=== PATIENT | female | born 1970 | race Caucasian/White ===

== ENCOUNTER 2017-11-29 08:03 | Outpatient (CLI) | payer OTHER, BC, SELFPAY ==
--- NOTE | 2017-11-29 14:10 | W.PM.HP.N ---
Date of service: 11/29/17 Assessment and Plan (1) Arthritis of carpometacarpal (CMC) joint of right thumb: Current visit: Yes Status: Acute CMC arthritis of the right thumb. Plan: Trapezial arthroplasty right wrist. Details of surgery were discussed with patient as well as risks and pertinent anatomy. All questions were answered. History of Present Illness Chief Complaint: Right thumb and wrist pain Narrative: Susan is a [id number] female who complains of right thumb and wrist pain that has been going on for over a year now. She states that she previously was able to do all of her activities although it was painful. She has most of her pain when she is using that right hand especially with gripping and grasping. 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 She had been to the orthopedic clinic where she had x-rays done which did show CMC arthritis of the right thumb. She has been using a brace as well as injections that have been working well for her up until her most recent injection. She had 2 injections that worked very well for her and gave her lasting relief however this most recent third injection did not give her any relief at all. Since conservative treatments are starting to fail and not getting her to a point where she can do everything that she needs to do Dr. Lucas suggests a trapezial arthroplasty of the right thumb. Patient agrees with this plan and is anxious to proceed. Patient denies significant past medical history. She denies hypertension, CVA, cardiac disease, chest pain, bleeding disorders, diabetes. Review of Systems Constitutional Denies fever(s), Denies headache(s) and Denies malaise ENT Denies dizziness, Denies headache(s) and Denies sore throat Cardiovascular Denies chest pain, Denies rapid heart rate, Denies irregular heart rhythm, Denies dyspnea on exertion, Denies orthopnea and Denies slow heart rate Respiratory Denies cough, Denies excessive phlegm production, Denies dyspnea on exertion and Denies wheezing Gastrointestinal Denies abdominal pain, Denies hematochezia, Denies nausea and Denies vomiting Genitourinary Denies abnormal vaginal bleeding, Denies hematuria and Denies dysuria Neurologic Denies dizziness and Denies headache(s) Allergic/Immunologic Denies wheezing PFSH Medical History Asthma Hearing loss Social History Smoking/Tobacco Use Status: Never Surgical History History of (Resolved ~1991) Ectopic , tubal (Inactive ~1991) H/O gastric bypass (Inactive ~2014) H/O tubal ligation (Inactive ~1996) Hip dysplasia (Inactive ~1969) History of (Inactive ~1991) History of ankle fusion (Inactive ~2016) History of unilateral fallopian tube excision (Inactive ~1992) Hx laparoscopic cholecystectomy (Inactive) Meds Home Medications Medication Instructions Recorded Confirmed Type Essential Oil Ihnaler 1 ea INTRANASAL PRN PRN 11/29/17 History acetaminophen [Acetaminophen Extra 1,000 mg PO TID PRN 11/29/17 11/29/17 History Strength] albuterol sulfate 2 puff INHALATION Q4H PRN PRN 11/29/17 11/29/17 History Allergies Allergy/AdvReac Type Severity Reaction Status Date / Time latex Allergy Severe Skin Rash, Unverified 11/29/17 08:29 itchy tongue, respiratory distress promethazine HCl Allergy Severe chest Unverified 11/29/17 08:29 [From Phenergan] tightness/SOB simethicone Allergy Severe Hives Unverified 11/29/17 08:29 adhesive Allergy Intermediate Skin Rash Unverified 11/29/17 08:29 hydrocodone Allergy Intermediate Hives Unverified 11/29/17 08:29 meperidine Allergy Intermediate Hives Unverified 11/29/17 08:29 oxycodone Allergy Intermediate Hives Unverified 11/29/17 08:29 NSAIDS (Non-Steroidal AdvReac Intermediate d/t Unverified 11/29/17 08:29 Anti-Inflamma vertical sleeve gastectomy Exam Const General: cooperative and no acute distress Orientation: alert, awake and oriented x3 HENMT Head: normocephalic and atraumatic General nose exam: no nasal discharge Throat: uvula midline and other (soft palate rises symetrically, no erythema.) Eyes Conjunctivae: conjunctivae normal Sclera: sclerae normal Pupils: PERRL Resp Auscultation: clear to auscultation bilaterally Cardio Rate: regular rate Rhythm: regular rhythm Heart Sounds: S1 normal, S2 normal and no murmurs Pulses: radial pulses present on the left (regular rhythm, rate 72) GI Palpation: soft, no hepatosplenomegaly and nontender Auscultation: normal bowel sounds
== END 2017-11-29 08:23 ==
PROVIDERS: PCP Nurse Practitioner Family; Visit Provider Student in an Organized Health Care Education/Training Program
DX: Z01.818 Encounter for other preprocedural examination (principal)
CPT/HCPCS: NC

== ENCOUNTER 2017-12-04 06:18 | Day surgery (SDC) | payer OTHER, SELFPAY ==
[2017-12-04] VITALS (7 sets, daily range): BP systolic 137–156; BP diastolic 56–79; PULSE 63–66; RESP 15–20; TEMP 36.2–37.3; O2SAT 98–100
--- NOTE | 2017-12-04 07:04 | W.PM.DSUDISC ---
Discharge Plan Disposition Patient Disposition: HOME Condition: Good Discharge Details Reason For Visit: (R) THUMB CMC OA Attending Provider: Chung Lucas Primary Care Provider: Jennifer Suarez Home Meds and New Rx's Prescriptions: New hydromorphone 2 mg Tablet 1 - 2 mg PO Q6H PRN PRNQty: 8 RF: 0 Continue albuterol sulfate 90 mcg/actuation Hfa Aerosol Inhaler 2 puff INHALATION Q4H PRN PRNRF: 0 Essential Oil Ihnaler 1 ea Intranasal PRN PRNRF: 0 acetaminophen [Acetaminophen Extra Strength] 500 MG tablet 1,000 mg PO TID PRNQty: 100 RF: 0 Discharge Instructions Additional Instructions: Activity: You should keep the hand elevated as much as possible. You may use the fingers except for the thumb for light activity. You may apply ice to the outside of the splint, but do not get the splint wet. Dressings: You should keep the splint clean and dry. Medications: - You should take the Tylenol for baseline pain control - You have Hydromorphone for breakthrough pain. You should split these tablets to take 1mg as needed for breakthrough pain. Follow-up: 10 days Equipment/Supplies: Splint Activity:: Elevate Shower/Bathe:: Cover Diet:: Regular Discharge Orders Discharge Orders: Discharge Order (Routine); Ordered 12/04/17 Ordered By: Chung Lucas DS: Diagnosis Discharge Diagnosis (1) Arthritis of carpometacarpal (CMC) joint of right thumb: Status: Acute
[2017-12-04] MEDS: Lactated Ringers 1,000 ML 80 ML IV (07:15)
--- NOTE | 2017-12-04 07:17 | DI.RAD_ITS ---
SYMPTOM/DIAGNOSIS: CNC ARTHRITIS, RIGHT THUMB C-ARM FLUOROSCOPY RIGHT WRIST: Fluoroscopy Time: 5 sec Fluoroscopy was provided in the O.R. for Dr. Lucas. Please see procedure note for details.
[2017-12-04] MEDS: fentaNYL 100 MCG/2 ML VIAL IVP ×2 (09:25→09:30)
[2017-12-04] MEDS: Lactated Ringers 1,000 ML 75 ML IV (09:57)
[2017-12-04] MEDS: HYDROmorphone 2 MG TAB PO (10:30)
--- NOTE | 2017-12-04 17:24 | ROE_ITS ---
DATE OF PROCEDURE: December 04, 2017 PREOPERATIVE DIAGNOSIS: Right thumb CMC osteoarthritis. POSTOPERATIVE DIAGNOSIS: Same. SURGERY: Suture suspension arthroplasty of the right CMC joint. SURGEON: Chung Lucas M.D. SALON SALES CONSULTANT: Sneha Ann PA-C ANESTHESIA: General. ESTIMATED BLOOD LOSS: 10 cc's TOURNIQUET TIME: 48 minutes. FINDINGS: There were notable changes to the trapezium with a large medial and dorsal osteophyte. Th e trapezium was removed performing the resection arthroplasty and a suture sling was created between the FCR and APL tendons. COMPLICATIONS: None. DISPOSITION: The patient was awakened from anesthesia and taken to the PACU in a stable condition. INDICATION FOR PROCEDURE: Marisela is a 47-year-old who has had persistent right thumb pain. She's had i njections and tried bracing. She cannot use anti-inflammatories. She has exhausted nonoperative mat atment options but continues to have limitations with pain and dysfunction. I recommended a resectio n arthroplasty with suture suspensionplasty of the right CMC joint. I reviewed the risks of the proc edure to include bleeding, infection, pain, stiffness, damage to nerves and vessels, damage to muscle s and tendons. Despite these risks, she elected to proceed. PROCEDURE DESCRIPTION: Marisela was greeted in the preoperative holding area. Her identity was confirmed and the correct side was identified and marked. The consent was reviewed with the patient and ladonna d. The history and physical was updated. She was taken back to the operating room and placed in the supine position with all bony prominences well padded. The right arm was placed on the hand table. A non-sterile tourniquet was placed high up on the right arm. Prophylactic antibiotics in the form of Cefazolin were administered. A time-out was performed for safe surgery. The surgical site was anesthetized with 0.5% Bupivacaine with epinephrine. The limb was exsanguinate d and the tourniquet was inflated, where it stayed for forty-eight minutes. A radial-based incision was made overlying the APL tendon. The skin was incised sharply. Branches of the superficial radial nerve were protected. The sheath of the first extensor compartment was opened and the interval betw een the APL and EPB tendon was and used as the working interval. The deep branch of the ra dial artery was identified and released from its surrounding tissue and protected during the case. F luoroscopy was used to confirm the correct positioning of the trapezium. The capsule of the scaphotr apezial and the carpometacarpal joint was then opened up and the subperiosteal dissection of the trap ezium was performed. This was taken around the entirety of the trapezium. It was intended to be rem benny in whole but still was unable to. Therefore an osteotome was used to split it into four parts. With a rongeur the remainder of the trapezium was removed. The FCR was protected. After the trapez ium was removed in whole a #2-0 FiberWire was used to perform the suture sling suspensionplasty. The suture was taken through the APL tendon at the insertion of the first metacarpal through the FCR ten don at its insertion to the index metacarpal and it went back and forth twice. This created a sling for the first metacarpal to rest on. This was then tied over the APL after confirming appropriate po sitioning with the x-ray. This adequately supported the thumb metacarpal from sagging. The wound wa s then thoroughly irrigated. The capsule of the CMC joint was closed as best as possible with a 0 Vi cryl. The tourniquet was deflated and there was no significant bleeding. The deep tissues were chanel pproximated with a #3-0 Vicryl. The skin was closed with a #4-0 Monocryl. The remainder of the anes thetic 0.5% Bupivacaine was injected around the surgical site. The patient was placed in a thumb spi ca splint. At the end of the case all counts were correct.
== END 2017-12-04 11:26 | disposition home or self-care (01) ==
PROVIDERS: PCP Nurse Practitioner Family; Visit Provider Student in an Organized Health Care Education/Training Program
PROC: (CPT 25447; principal; 2017-12-04 07:30)
DX: M18.11 Unilateral primary osteoarthritis of first carpometacarpal joint, right hand (principal); M25.541 Pain in joints of right hand
CPT/HCPCS: 25447; 73110; J0131; J0690; J1100; J1885; J2250; J2405; J3010

== ENCOUNTER 2017-12-14 08:30 | Outpatient (CLI) | payer OTHER, BC, SELFPAY ==
--- NOTE | 2017-12-14 10:58 | DI.RAD_ITS ---
SYMPTOMS/DIAGNOSIS: S/P TRAPEZIAL RESECTION RT THUMB ARTHROPLASTY RIGHT THUMB: Three views. Comparison 12/04/17. There has been resection of the trapezium. The patient's wrist is in a cast which does obscure the underlying bony detail. No acute fracture or dislocation is appreciated.
== END 2017-12-14 08:50 ==
PROVIDERS: PCP Nurse Practitioner Family; Visit Provider Student in an Organized Health Care Education/Training Program
DX: M18.11 Unilateral primary osteoarthritis of first carpometacarpal joint, right hand (principal); Z98.890 Other specified postprocedural states
CPT/HCPCS: 73140

== ENCOUNTER 2018-04-22 10:43 | Outpatient (CLI) | payer OTHER, SELFPAY ==
--- NOTE | 2018-04-22 10:36 | DI.RAD_ITS ---
SYMPTOM/DIAGNOSIS: WORSENING LT ANKLE PAIN, S/P SUBTALAR FUSION LEFT ANKLE: Comparison is made with 10 October 2017. Two partially threaded screws are again noted through the talocalcaneal joint for joint fusion. Heel spurs are again noted. There is spurring from the malleoli as well as degenerative changes at the talonavicular joint. IMPRESSION: Stable post surgical and degenerative changes.
== END 2018-04-22 11:03 ==
PROVIDERS: PCP Nurse Practitioner Family; Visit Provider Student in an Organized Health Care Education/Training Program
DX: M25.572 Pain in left ankle and joints of left foot (principal); M77.32 Calcaneal spur, left foot; M19.072 Primary osteoarthritis, left ankle and foot
CPT/HCPCS: 73610

== ENCOUNTER 2018-09-09 21:33 | Emergency (ER) | payer OTHER, SELFPAY ==
[2018-09-09 21:46] VITALS: BP 153/75; PULSE 70; RESP 18; TEMP 36.9; O2SAT 97
--- NOTE | 2018-09-09 21:52 | ED.GENADUL_ITS ---
Discharge Plan Disposition Patient Disposition: HOME Condition: Stable Discharge Details Chief Complaint: EarProblem Clinical Impression: Foreign body of left ear Primary Care Provider: Jennifer Suarez ED Provider: Freddie Brenner Home Meds and New Rx's Prescriptions: No Action [place] Custom Ankle Brace Qty: 1 RF: 0 gabapentin 300 mg capsule 300 mg PO HS Qty: 30 RF: 2 albuterol sulfate 90 mcg/actuation Hfa Aerosol Inhaler 2 puff INHALATION Q4H PRN PRNRF: 0 Essential Oil Ihnaler 1 ea Intranasal PRN PRNRF: 0 hydromorphone 2 mg Tablet 1 - 2 mg PO Q6H PRN PRNQty: 8 RF: 0 acetaminophen [Acetaminophen Extra Strength] 500 MG tablet 1,000 mg PO TID PRNQty: 100 RF: 0 Discharge Instructions Additional Instructions: if you have severe pain or discharge from the ear return to the emergency department or see your primary care provider Medical Decision Making 48 yo female comes in stating a piece of her hearing aid is stuck in her left ear. She had a visible rubber ear piece in the left ear canal that I removed without incident and has normal tm and ext auditory canal and return precautions given Differential Diagnosis foreign body HPI General Mode of arrival: ambulatory . Date/Time Provider Initiated Documentation: 09/09/18 21:39 . Limitations to Documentation: no limitations . Information obtained by: patient . History of Present Illness 48 year old F presents to the emergency department with the chief complaint of left ear foreign body, and is localized to the head (left ear) and left. Patient started experiencing this hour(s) (2) and it has been constant. No relieving factors improve symptom(s), No exacerbating factors reported . Patient notes no other symptoms.. Related Data Home Medications Medication Instructions Recorded Confirmed Essential Oil Ihnaler 1 ea INTRANASAL PRN PRN 11/29/17 04/22/18 albuterol sulfate 2 puff INHALATION Q4H PRN PRN 11/29/17 04/22/18 acetaminophen [Acetaminophen Extra 1,000 mg PO TID PRN #100 tab 12/04/17 04/22/18 Strength] hydromorphone 1 - 2 mg PO Q6H PRN PRN #8 tab 12/04/17 04/22/18 gabapentin 300 mg capsule 300 mg PO HS #30 cap 03/29/18 04/22/18 [place] Custom Ankle Brace #1 ea 04/22/18 04/22/18 Previous Rx's Medication Instructions Recorded acetaminophen [Acetaminophen Extra 1,000 mg PO TID PRN #100 tab 12/04/17 Strength] hydromorphone 1 - 2 mg PO Q6H PRN PRN #8 tab 12/04/17 gabapentin 300 mg capsule 300 mg PO HS #30 cap 03/29/18 [place] Custom Ankle Brace #1 ea 04/22/18 Allergies Allergy/AdvReac Type Severity Reaction Status Date / Time latex Allergy Severe Skin Rash, Unverified 04/22/18 10:46 itchy tongue, respiratory distress promethazine HCl Allergy Severe chest Unverified 04/22/18 10:46 [From Phenergan] tightness/SOB simethicone Allergy Severe Hives Unverified 04/22/18 10:46 adhesive Allergy Intermediate Skin Rash Unverified 04/22/18 10:46 hydrocodone Allergy Intermediate Hives Unverified 04/22/18 10:46 meperidine Allergy Intermediate Hives Unverified 04/22/18 10:46 oxycodone Allergy Intermediate Hives Unverified 04/22/18 10:46 NSAIDS (Non-Steroidal AdvReac Intermediate d/t Unverified 04/22/18 10:46 Anti-Inflamma vertical sleeve gastectomy Review of Systems Review of Systems All systems reviewed & are unremarkable except as noted in HPI and below Constitutional Denies chills, Denies fever(s) and Denies weakness Cardiovascular Denies chest pain and Denies dyspnea Respiratory Denies cough and Denies dyspnea Gastrointestinal Denies abdominal pain, Denies nausea and Denies vomiting Musculoskeletal Denies joint swelling Neurologic Denies weakness PFSH Medical History Asthma Hearing loss Surgical History History of (Resolved ~1991) Ectopic , tubal (Inactive ~1991) H/O gastric bypass (Inactive ~2014) H/O tubal ligation (Inactive ~1996) Hip dysplasia (Inactive ~1969) History of (Inactive ~1991) History of ankle fusion (Inactive ~2016) History of unilateral fallopian tube excision (Inactive ~1992) Hx laparoscopic cholecystectomy (Inactive) Social History Smoking/Tobacco Use Status: Never Drug use: Never Do you feel safe in your relationship?: Yes Exam Const General: no acute distress Orientation: alert HENMT Head: normal to inspection Ears: external ears normal General nose exam: external nose normal Mouth: moist mucous membranes Eyes General: appearance normal, both eyes and all related structures Neck Neck: normal visual inspection Resp Effort & Inspection: normal respiratory effort and able to speak in complete sentences Cardio Rate: regular rate Skin General skin exam: no rashes or lesions noted Neuro General: alert and oriented x3 Extrem General: normal to inspection Psych Mental Status: mental status grossly normal
[2018-09-09 21:53] VITALS: BP 153/75; PULSE 70; RESP 18; O2SAT 97
== END 2018-09-09 22:02 | disposition home or self-care (01) ==
LOC: ER 22:06
PROVIDERS: Emergency Provider Emergency Medicine; PCP Nurse Practitioner Family
DX: T16.2XXA Foreign body in left ear, initial encounter (principal)
CPT/HCPCS: 99281

== ENCOUNTER 2019-12-25 17:53 | Emergency (ER) | payer OTHER, SELFPAY ==
[2019-12-25 17:58] VITALS: BP 182/88; PULSE 71; TEMP 36.6; O2SAT 99
--- NOTE | 2019-12-25 18:33 | W.ED.GENAD ---
Discharge Plan Disposition Patient Disposition: HOME Condition: Stable Discharge Details Clinical Impression: Foot sprain Primary Care Provider: Jennifer Suarez ED Provider: Brenadn Barron Home Meds and New Rx's Prescriptions: Continued (DME) [place] Custom Ankle Brace Qty: 1 RF: 0 albuterol sulfate 90 mcg/actuation Hfa Aerosol Inhaler 2 puff INHALATION Q4H PRN PRNRF: 0 Essential Oil Ihnaler 1 ea Intranasal PRN PRNRF: 0 acetaminophen [Acetaminophen Extra Strength] 500 MG tablet 1,000 mg PO TID PRNQty: 100 RF: 0 gabapentin 300 mg capsule 300 mg PO HS PRNRF: 0 Discharge Instructions Instructions: Foot Sprain (ED) Additional Instructions: X-ray foot and ankle are unremarkable. This is likely a sprain. Rest, elevate, cool compresses every 2 hours for 20 minutes. Arhv-[id number]-vxvgyed medication such as Tylenol and/or Motrin as directed for discomfort. Advance activity as tolerated. Please watch for new or worsening symptoms and return to the ER for any concerns. Otherwise contact your primary care provider in the next week for prompt outpatient reevaluation. Medical Decision Making 49-year-old female presents with right foot-ankle injury that occurred this morning miss stepping off her bottom step. Twisted but did not fall to the ground. Was able to work although pain got worse throughout the day. Denies any other injury. Denies numbness, tingling, weakness. Clinically this appears to be soft tissue in nature but will obtain x-ray to rule any bony involvement. X-ray of foot and ankle read by virtual radiology as negative. Discussed x-ray findings with patient. Discussed treatment options. She reports that she has baseline balance issues and that she is relieved that there is no broken bone. She declines splinting or crutches. I do believe this to be reasonable. Medical Records Medical records reviewed: Yes I reviewed the patient's medical records. HPI General Mode of arrival: ambulatory. Date/Time Provider Initiated Documentation: 12/25/19 18:31. Limitations to Documentation: no limitations. Information obtained by: patient. HPI Narrative: This is a 49-year-old female with history of sensorineural hearing loss, asthma, presenting status post injury to her right foot and ankle that occurred this morning. Patient reports that she was wearing her regular sneakers, twisted her foot/ankle coming down the bottom stair. She was able to catch herself and did not fall to the ground. No additional injuries. She reports that she was able to bear weight throughout the day and work but as the day went on the pain got worse. As above she denies any other injuries. Denies numbness, tingling, weakness. Pain is moderate at rest worse with weightbearing. Related Data Home Medications Medication Instructions Recorded Confirmed Essential Oil Ihnaler 1 ea INTRANASAL PRN PRN 11/29/17 04/22/18 albuterol sulfate 2 puff INHALATION Q4H PRN PRN 11/29/17 12/25/19 acetaminophen [Acetaminophen Extra 1,000 mg PO TID PRN #100 tab 12/04/17 12/25/19 Strength] [place] Custom Ankle Brace #1 ea 04/22/18 04/22/18 gabapentin 300 mg PO HS PRN 12/25/19 12/25/19 Previous Rx's Medication Instructions Recorded acetaminophen [Acetaminophen Extra 1,000 mg PO TID PRN #100 tab 12/04/17 Strength] [place] Custom Ankle Brace #1 ea 04/22/18 Allergies Allergy/AdvReac Type Severity Reaction Status Date / Time latex Allergy Severe Skin Rash, Unverified 12/25/19 18:03 itchy tongue, respiratory distress promethazine HCl Allergy Severe chest Unverified 12/25/19 18:03 [From Phenergan] tightness/SOB simethicone Allergy Severe Hives Unverified 12/25/19 18:03 adhesive Allergy Intermediate Skin Rash Unverified 12/25/19 18:03 hydrocodone Allergy Intermediate Hives Unverified 12/25/19 18:03 meperidine Allergy Intermediate Hives Unverified 12/25/19 18:03 oxycodone Allergy Intermediate Hives Unverified 12/25/19 18:03 NSAIDS (Non-Steroidal AdvReac Intermediate d/t Unverified 12/25/19 18:03 Anti-Inflamma vertical sleeve gastectomy General Stated Complaint: Orthopedic OLU: 4 Review of Systems Constitutional Constitutional: Denies weakness Cardiovascular Cardiovascular: Denies chest pain and Denies dyspnea Respiratory Respiratory: Denies dyspnea Gastrointestinal Gastrointestinal: Denies nausea and Denies vomiting Musculoskeletal Musculoskeletal: Reports arthralgias, Denies numbness, Denies stiffness and Denies tingling Integumentary/Breasts Skin/Breast: Denies rash Neurologic Neurologic: Denies numbness, Denies tingling and Denies weakness [facility] Medical History Asthma rarely has to use inhailer Hearing loss Surgical History Ectopic , tubal (~1991) with surgical repair of tube H/O gastric bypass (~2014) severe n/v H/O tubal ligation (~1996) Hip dysplasia (~1969) with surgical intervention History of ankle fusion (~2016) History of (~1991) History of (~1991) History of unilateral fallopian tube excision (~1992) due to ectopic Hx laparoscopic cholecystectomy Social History Smoking/Tobacco Use Status: Never Alcohol Intake: current Alcohol Intake frequency: holidays/special occasions only Drug use: Never Do you feel safe at home: Yes Do you feel safe in your relationship?: Yes Exam Const General: cooperative, healthy appearing, comfortable and no acute distress Orientation: alert and awake HENMT Head: normal to inspection, normocephalic and atraumatic Mouth: moist mucous membranes Eyes Conjunctivae: conjunctivae normal Neck Neck: normal visual inspection, trachea midline and supple Resp Effort & Inspection: normal respiratory effort and able to speak in complete sentences Cardio Rate: regular rate Rhythm: regular rhythm Skin General skin exam: no rashes or lesions noted Neuro General: patient alert, patient awake, moves all extremities and no focal motor deficits Gait: antalgic Motor: muscle tone normal throughout Sensory Exam: no sensory deficits noted Extrem Right lower extremity: full ROM and normal capillary refill Ankle/foot/toe images: 1. Discomfort to palpation, diffusely. No deformity. Neuro, vascular, tendon intact. Without swelling or ecchymosis. Normal capillary refill Psych Appearance: grossly normal Mental Status: mental status grossly normal Course Vital Signs Vital signs: Vital Signs Temperature 36.6 C 12/25/19 17:58 Pulse 71 12/25/19 17:58 Blood Pressure 182/88 H 12/25/19 17:58 Pulse Oximetry 99 12/25/19 17:58 Temperature 36.6 C 12/25/19 17:58 Temperature Source Temporal Artery Scan 12/25/19 17:58 Pulse 71 12/25/19 17:58 Respiratory Effort Non-Labored 12/25/19 18:00 Blood Pressure 182/88 H 12/25/19 17:58 Blood Pressure Position Sitting 12/25/19 17:58 Pulse Oximetry 99 12/25/19 17:58 Oxygen Delivery Method Room Air 12/25/19 17:58 Oxygen Flow Rate 0 12/25/19 17:58 Pain Level 4 12/25/19 18:19
--- NOTE | 2019-12-25 18:50 | DI.RAD_ITS ---
EXAM: XR FOOT RT COMPLETE CLINICAL HISTORY: fall/twist. TECHNIQUE: 2D digital imaging was performed. COMPARISON: CR LEFT FOOT COMPLETE from 06/30/2016 FINDINGS: BONES: No acute fracture is present. No bony destructive lesion is seen.heel spur. JOINTS: No dislocation present. SOFT TISSUE: Normal. IMPRESSION: No acute abnormality. DATA REPOSITORY: RADIATION DOSE DELIVERED:
--- NOTE | 2019-12-25 18:52 | DI.RAD_ITS ---
EXAM: XR ANKLE RT COMPLETE CLINICAL HISTORY: fall/twist TECHNIQUE: 2D digital imaging was performed. COMPARISON: CR XR ANKLE LT COMPLETE from 04/22/2018 FINDINGS: There are prominent heel spurs. No fracture or ankle mortise widening is seen. No talar dome defect is identified. Soft tissue edema. IMPRESSION: No acute abnormality.
--- NOTE | 2019-12-25 19:18 | DI.VRAD_ITS ---
PROCEDURE INFORMATION: Exam: XR Right Foot Complete Exam date and time: 12/25/2019 18:57 Age: 49 years old Clinical indication: Injury or trauma; Swelling (edema); Foot; Right; Injury date: 12/25/19; Injury details: Fall, twist, inversion TECHNIQUE: Imaging protocol: XR Right foot. Views: 3 or more views. COMPARISON: No relevant prior studies available. FINDINGS: Bones/joints: Plantar calcaneal spur. Posterior calcaneal spur. No acute fracture or subluxation. Soft tissues: Normal. IMPRESSION: No acute bony pathology. Dictated and Authenticated by: Dejah Dash MD. Ordering:DANIELE Cardona MD
--- NOTE | 2019-12-25 19:18 | DI.VRAD_ITS ---
PROCEDURE INFORMATION: Exam: XR Right Ankle Exam date and time: 12/25/2019 18:57 Age: 49 years old Clinical indication: Injury or trauma; Swelling (edema); Ankle; Right; Injury date: 12/25/19; Injury details: Fall, twist, inversion TECHNIQUE: Imaging protocol: XR Right ankle. Views: 3 or more views. COMPARISON: No relevant prior studies available. FINDINGS: Bones/joints: Plantar calcaneal spur. Posterior calcaneal spur. No acute fracture or subluxation. Soft tissues: Generalized soft tissue swelling. IMPRESSION: No acute bony pathology. Dictated and Authenticated by: Dejah Dash MD. Ordering:DANIELE Cardona MD
[2019-12-25 19:20] VITALS: BP 155/82
== END 2019-12-25 19:41 | disposition home or self-care (01) ==
LOC: ER 19:53
PROVIDERS: Emergency Provider Physician Assistant; PCP Nurse Practitioner Family
DX: S93.601A Unspecified sprain of right foot, initial encounter (principal); X50.9XXA Other and unspecified overexertion or strenuous movements or postures, initial encounter
CPT/HCPCS: 99284; 73610; 73630; 99283

== ENCOUNTER 2020-06-09 11:38 | Outpatient (REF) | payer OTHER, SELFPAY ==
[2020-06-09 19:47] LABS: HCT 36.6 % (36.0-46.0); HGB 11.1 g/dL (11.2-15.7); MCH 23.4 pg (27.0-33.0); MCHC 30.3 % (32.0-36.0); MCV 77.2 fL (80-95); Platelet Count 326 10^3/uL (130-400); RBC 4.74 10^6/uL (3.93-5.22); RDW 15.9 % (11.7-14.6); RDW-SD 45.1 fL; WBC 4.59 10^3/uL (4.4-10.8)
[2020-06-09 20:08] LABS: ALT 23 U/L (14-59); AST 13 U/L (15-37); Albumin 3.8 g/dL (3.4-5.0); Alkaline Phosphatase 101 U/L (46-116); Anion Gap 6.4 mmol/L (3-11); BUN 12 mg/dL (7-18); Bilirubin, Total 0.9 mg/dL (0.2-1.0); CO2 30.6 mmol/L (21.0-32.0); CREATININE 0.6 mg/dL (0.55-1.02); Calcium 8.8 mg/dL (8.5-10.1); Calculated LDL 107 mg/dL (<100); Chloride 104 mmol/L (98-107); Cholesterol 184 mg/dL (<200); Glucose 84 mg/dL (74-106); HDL Cholesterol 69 mg/dL (40-60); Sodium 141 mmol/L (136-145); TSH (W/Ref FT4) 0.81 uIU/mL (0.36-3.74); Total Protein 7.2 g/dL (6.4-8.2); Triglyceride 41 mg/dL (<150)
== END 2020-06-09 11:39 | disposition home or self-care (01) ==
LOC: NCHCN 11:38
PROVIDERS: PCP Nurse Practitioner Family; Visit Provider Nurse Practitioner Family
DX: Z00.00 Encounter for general adult medical examination without abnormal findings (principal); R53.83 Other fatigue; Z13.220 Encounter for screening for lipoid disorders
CPT/HCPCS: 80053; 80061; 85027; 84443

== ENCOUNTER 2020-06-09 16:38 | Outpatient (RCR) | payer OTHER, SELFPAY ==
--- NOTE | 2020-06-09 17:15 | HOLTER_ITS ---
APPROVED REPORT Exam Type: HOLTER MONITOR APPLICATION Reason for Test: PALPITATIONS Patient Location: O Conclusion This is a 48-hour Holter monitor ordered for indication of palpitations. The patient was in normal sinus rhythm for the majority of the recording with an average heart rate o f 72 bpm. There were rare PACs and rare PVCs. There were 10 episodes of supraventricular tachycardia with the longest lasting 21 beats. The fastes t episode was 189 bpm. There were no episodes of ventricular tachycardia. There were no episodes of atrial fibrillation, no pauses greater than 3 seconds and no evidence of hi gh degree heart block. The patient had multiple diary events associated with SVT as well as PACs/PVCs.
== END 2020-06-23 23:59 | disposition home or self-care (01) ==
LOC: RT 16:38
PROVIDERS: PCP Nurse Practitioner Family; Visit Provider Nurse Practitioner Family
DX: R00.2 Palpitations (principal)
CPT/HCPCS: 93225; 93226

== ENCOUNTER 2020-06-24 01:34 | Outpatient (CLI) | payer OTHER, SELFPAY ==
--- NOTE | 2020-06-24 12:36 | DI.MAMMO_ITS ---
EXAM: MG MAMMO SCREENING CLINICAL HISTORY: SCREENING, Z12.39. TECHNIQUE: Bilateral full field digital CC and MLO mammographic images were obtained with 3D tomosyn thesis and utilizing computer aided detection (CAD). COMPARISON: None available at this time. Over 10 years ago at outside institution are being sent fo r. An addendum will follow if received the previous for comparison. FINDINGS: Small benign-appearing nodule posterolaterally in the left breast is probably benign lymph node. No obvious spiculated masses nor malignant-appearing microcalcification groups in either breast. There is no significant architectural distortion nor skin thickening-retraction. IMPRESSION: Benign findings. No radiographic evidence of malignancy. BI-RADS Category 2 - Benign Findings Breast Density - Category B - Scattered areas of fibroglandular density Breast density Category C or D implies that the patient has dense breast tissue. Dense breast tissue can make it harder to find cancer on a mammogram. Dense breast tissue is also associated with an incr eased risk of breast cancer. This information about the result of the mammogram report was provided to the patient to raise their awareness. Use this report when you speak with the patient about their risks for breast cancer, which includes their family history. At that time, you may recommend additional screening tests (Ultrasoun d or MRI) as these tests may add significant information. A negative radiographic report should not delay biopsy if a dominant or clinically suspicious mass is present. Up to ten percent of cancers are not identified on mammography. A negative report may reinforce clinical impression. Adenosis and dense breasts may obscure an underlying neoplasm. False positive reports average 6 to 10%. Patient will receive a letter notifying them of these results.
== END 2020-06-24 01:54 ==
PROVIDERS: PCP Nurse Practitioner Family; Visit Provider Nurse Practitioner Family
DX: Z12.31 Encounter for screening mammogram for malignant neoplasm of breast (principal)
CPT/HCPCS: 77063; 77067

== ENCOUNTER 2020-07-02 11:31 | Outpatient (CLI) | payer OTHER, SELFPAY ==
--- NOTE | 2020-07-02 11:15 | DI.RAD_ITS ---
EXAM: XR FOOT LT COMPLETE CLINICAL HISTORY: foot pain. TECHNIQUE: 2D digital imaging was performed. COMPARISON: CR XR ANKLE LT COMPLETE from 04/22/2018 CR,XR XR FOOT RT COMPLETE from 12/25/2019 FINDINGS: Stable findings of a talocalcaneal fusion are noted. Spurring is seen at the talonavicular joint and articulation of the navicular and the cuneiform. The joint spaces are otherwise well maintained. T he bones are intact and normally mineralized. There is plantar calcaneal spur and enthesophyte at th e Achilles insertion site. The soft tissues are unremarkable. IMPRESSION: Stable left foot. DATA REPOSITORY: RADIATION DOSE DELIVERED:
== END 2020-07-02 11:32 | disposition home or self-care (01) ==
LOC: DIORS 11:32
PROVIDERS: PCP Nurse Practitioner Family; Referring Provider Nurse Practitioner Family; Visit Provider Physician Assistant Surgical
DX: M79.672 Pain in left foot (principal)
CPT/HCPCS: 73630

== ENCOUNTER 2020-11-17 02:40 | Outpatient (CLI) | payer OTHER, SELFPAY ==
[2020-11-17 12:37] LABS: Source Nasal/Nares
[2020-11-17 15:08] LABS: COVID-19 PCR Negative (Negative)
== END 2020-11-17 02:41 | disposition home or self-care (01) ==
LOC: LBN 02:40
PROVIDERS: Family Medicine; PCP Nurse Practitioner Family; Visit Provider Surgery
DX: Z20.822 Contact with and (suspected) exposure to COVID-19 (principal); Z01.818 Encounter for other preprocedural examination
CPT/HCPCS: 87635

== ENCOUNTER 2020-11-19 06:17 | Day surgery (SDC) | payer OTHER, SELFPAY ==
--- NOTE | 2020-11-18 15:21 | W.COLOREPORT ---
Date of service: 11/19/20 Time of Service: 08:00 Colonoscopy Report Date of procedure: 11/19/20 Pre-op diagnosis general: hx if IBD- mixed/CRC screen Post-op diagnosis procedure note: same Surgeon: Sneha Lizarraga Anesthesia Type: General LMA/ETT Pathology: other Complications: None Disposition: same day Prep: Miralax/Dulcolax Retraction Time: 9 Procedure Description: After informed consent was obtained the patient was taken to the procedure room and placed in a left decubitous position. Monitors were applied and a time out was done. The patients name, date of , procedure, allergies to medications and metal in their body was reviewed. The patient was then sedated. Once sedated and comfortable a rectal exam was done. External exam was normal. Internal exam revealed a normal sphincter tone and no palpable masses. The scope was then introduced and retrofelexed. no internal hemorrhoids were identified. The scope was then advanced to the cecum w/out difficulty. The TI and appendiceal orifice were identified. The prep was good. The scope was then slowly retracted over 9 minutes back into the rectum. THere are no polyps/AVM's/diverticula. The colon is very torteous. Bx were taken in cecum/ 50cm/rectum. The scope was removed and the patient was woken up and taken back to Same day surgery in stable condition. The patient tolerated the procedure well and there were no immediate complications. Follow up: The patient should follow up in 10 years unless they develop changes in bowel habits or other new gastrointestinal complaints.
--- NOTE | 2020-11-18 15:23 | PDOC.DSDIS_ITS ---
Discharge Plan Disposition Patient Disposition: HOME Condition: Good Discharge Details Reason For Visit: colon scope Attending Provider: Sneha Lizarraga Primary Care Provider: Jennifer Suarez Home Meds and New Rx's Prescriptions: No Action (DME) [place] Custom Ankle Brace Qty: 1 RF: 0 ibuprofen 800 mg tablet 800 mg PO BID RF: 0 bisacodyl [Dulcolax (bisacodyl)] 5 mg tablet,delayed release (DR/EC) 5 mg PO ONCE Qty: 4 RF: 0 polyethylene glycol 3350 17 gram/dose powder 238 g PO ONCE Qty: 238 RF: 0 aspirin [Adult Aspirin Regimen] 81 mg tablet,delayed release (DR/EC) 81 mg PO DAILY RF: 0 albuterol sulfate 90 mcg/actuation Hfa Aerosol Inhaler 2 puff INHALATION Q4H PRN PRNRF: 0 Essential Oil Ihnaler 1 ea Intranasal PRN PRNRF: 0 acetaminophen [Acetaminophen Extra Strength] 500 MG tablet 1,000 mg PO TID PRNQty: 100 RF: 0 gabapentin 300 mg capsule 300 mg PO HS PRNRF: 0 Discharge Instructions Additional Instructions: DSU Colonoscopy Post- Op Instructions Instructions for Everyone who is given Anesthesia: For your safety, please do the following for the next twenty-four (24) hours: *Do Not operate a motor vehicle (car, truck, motorcycle, etc.) *Do Not drink alcoholic beverages or use any recreational drugs for the first 24 hours or while taking pain medications. The medications in your body may have a reaction that can be dangerous. *Do Not make any important decisions or sign any important papers. Findings:normal Follow up:repeat scope in 10 yrs time 1. No lifting over 20 pounds or strenuous activity for the first 24 hours after your procedure. After 24 hours there are no restrictions on your activity but you may feel fatigued for a few days. 2. After you arrive home you may have a light meal and return to your normal t as you can tolerate it without feeling sick to your stomach. 3. You may have a bloated, gaseous feeling in your belly (abdomen) after a colonoscopy. Passing gas and belching will help. Walking or lying down on your left side with your knees flexed may relieve the discomfort. Call the office at [phone] (Office) or [phone] (Hospital) right away if you notice any of the following: a.Vomiting of blood or ?coffee ground stools?. b.Rectal bleeding 1Tbsp, blood clots or continuous bleeding. c.Severe belly (abdominal) pain. d.A hard distended belly (abdomen) and an inability to pass gas. 4. Please don?t expect to have a normal BM (bowel movement) for 2-3 days after your procedure. 5. If there are questions regarding the findings of your procedure, please contact your doctor 6. If you are unable to contact your doctor with a problem, contact the hospital at [phone]. 7. Continue all your regular medications unless directed otherwise. I understand the above instructions and have no questions. Signature of Patient or Adult Escort Name of Responsible Adult Escort Signature of Nurse Date/Time Activity:: see above Diet:: see above Discharge Orders Discharge Orders: Discharge Order (Routine); Ordered 11/18/20 Ordered By: Sneha Lizarraga DS: Diagnosis Discharge Diagnosis (1) IBS (irritable bowel syndrome): Status: Chronic
[2020-11-19 06:24] VITALS: BP 150/87; PULSE 70; RESP 16; TEMP 36.6; O2SAT 98
[2020-11-19] MEDS: Lactated Ringers 1,000 ML 80 ML IV (06:56)
--- NOTE | 2020-11-19 07:08 | W.ANESPRE ---
General Info Date of Service Date Performed: 11/19/20 Height: 5 ft 5 in Weight: 107 kg Body Mass Index (BMI): 39.2 Surgical Procedure: Operation Date: 11/19/20 07:35 Proposed Procedures Side Surgeon kalie Lizarraga, Meds Allergies and Home Medications Allergies Allergy/AdvReac Type Severity Reaction Status Date / Time latex Allergy Severe Skin Rash, Unverified 11/19/20 06:34 itchy tongue, respiratory distress promethazine HCl Allergy Severe chest Unverified 11/19/20 06:34 [From Phenergan] tightness/SOB simethicone Allergy Severe Hives Unverified 11/19/20 06:34 adhesive Allergy Intermediate Skin Rash Unverified 11/19/20 06:34 hydrocodone Allergy Intermediate Hives Unverified 11/19/20 06:34 meperidine Allergy Intermediate Hives Unverified 11/19/20 06:34 oxycodone Allergy Intermediate Hives Unverified 11/19/20 06:34 NSAIDS (Non-Steroidal AdvReac Intermediate d/t Unverified 11/19/20 06:34 Anti-Inflamma vertical sleeve gastectomy Home Medication Medication Instructions Recorded Essential Oil Ihnaler 1 ea INTRANASAL PRN PRN 11/29/17 albuterol sulfate 2 puff INHALATION Q4H PRN PRN 11/29/17 acetaminophen [Acetaminophen Extra 1,000 mg PO TID PRN #100 tab 12/04/17 Strength] [place] Custom Ankle Brace #1 ea 04/22/18 gabapentin 300 mg PO HS PRN 12/25/19 aspirin 81 mg tablet,delayed 81 mg PO DAILY 06/29/20 release bisacodyl 5 mg tablet,delayed 5 mg PO ONCE #4 tab 10/21/20 release ibuprofen 800 mg tablet 800 mg PO BID tab 10/21/20 polyethylene glycol 3350 17 238 g PO ONCE #238 g 10/21/20 gram/dose oral powder Current Visit Medications: Current Medications Generic Name Dose Route Start Last Admin Trade Name Freq PRN Reason Stop Dose Admin Hyoscyamine Sulfate 0.125 mg 11/18/20 15:20 Hyoscyamine 0.125 Mg Sl/Oral/Chew SL DIRECTED PRN Ringer's Solution 1,000 mls @ 80 mls/hr 11/19/20 06:00 11/19/20 06:56 IV 12/18/20 23:59 80 mls/hr INFUSION BLAIR Administration IV Miscellaneous Supplies 1 each 11/19/20 06:00 Iv Access IV 12/18/20 23:59 DIRECTED BLAIR Ondansetron HCl 4 mg 11/18/20 15:20 Ondansetron 4 Mg/2 Ml Vial IVP Q4H PRN PRN Nausea / Vomiting Sodium Chloride 0 ml 11/19/20 06:00 Normal Saline Flush 10 Ml Syr IV 12/18/20 23:59 PRN PRN PFSH Active Problems Active Problems: Problem Status Onset Code Arthritis of foot, left 11/01/15 M19.072 Primary osteoarthritis of first carpometacarpal joint of right hand 01/29/17 M18.11 Sensorineural hearing loss, bilateral 04/24/17 H90.3 Arthritis of carpometacarpal (CMC) joint of right thumb M18.11 History of hand surgery Z98.890 Sensorineural hearing loss (SNHL) of right ear with restricted hearing of left ear H90.A21 Screening for colon cancer Z12.11 Fatigue R53.83 Palpitations R00.2 Family history of breast cancer Z80.3 IBS (irritable bowel syndrome) K58.9 Medical History Medical History (Updated 11/19/20 @ 07:00 by Silvia Reza) Asthma rarely has to use inhailer Complex regional pain syndrome i of right upper limb Hearing loss Surgical History Surgical History Ectopic , tubal (~1991) with surgical repair of tube H/O gastric bypass (~2014) severe n/v Vertical sleeve gastrectomy H/O tubal ligation (~1996) Hip dysplasia (~1969) with surgical intervention History of ankle fusion (~2016) History of (~1991) History of (~1991) History of unilateral fallopian tube excision (~1992) due to ectopic Hx laparoscopic cholecystectomy Tobacco Smoking/Tobacco Use Status: Never Alcohol Alcohol Intake: current Alcohol intake frequency: holidays/special occasions only Alcohol type: wine and hard liquor Substance Use Substance use: Never Substance use type: does not use Vital Signs and Lab Results Vital Signs Most Recent Vital Signs in EMR: Most Recent Vital Signs Temp Pulse Resp BP Pulse Ox 36.6 C 70 16 150/87 H 98 11/19/20 06:24 11/19/20 06:24 11/19/20 06:24 11/19/20 06:24 11/19/20 06:24 Point of Care Results Point of Care Results: POC- Test(urine) Negative 11/19/20 07:01 Lab Results Blood Type / Crossmatch: No Data to Display Complete Blood Count: No Data to Display Complete Metabolic Panel: No Data to Display Liver Function Panel: No Data to Display Coagulation Panel: No Data to Display Cardiac Panel: No Data to Display Arterial Blood Gas: No Data to Display Venous Blood Gas: No Data to Display Pancreas Panel: No Data to Display Thyroid Panel: No Data to Display Infectious Disease: Coronavirus (COVID-19)(PCR) Negative (Negative) 11/17/20 08:42 11/17/20 Coronavirus 2019 Source Nasal/Nares 11/17/20 08:42 11/17/20 Blood Cultures: No Data to Display Toxicology Panel: No Data to Display Panel: No Data to Display Anesthesia Assessment and Plan Anesthesia History Personal History: No History of Anesthesia Complications Family History: No Family History of Anesthesia Complications Exercise Tolerance Exercise Tolerance: Metabolic Equivalents>4 Pertinent Negatives Pertinent Negatives: No Symptoms of GERD, No Major Pulmonary Symptoms or Complaints, No History of CVA/TIA and Other (May 2020 holter monitor, occ SVT with PACs, PVCs) Cardiac & Pulmonary Exam Cardiac Exam: Normal S1/S2 Heart Sounds Pulmonary Exam: Clear Bilateral Breath Sounds Cardiac and Pulmonary Comment:: No recent inhaler use Airway Exam Known Difficult Airway: No Mallampati Class: 1 Mouth Opening: Normal (> 3cm) Thyromental Distance: Greater than 3 cm Neck Range of Motion: Full ROM Neck Circumference: Normal Teeth Condition: Other (Minimal lower teeth, edentulous upper, none loose per pt. ) ASA Classification ASA Score: ASA 3 Emergency Case?: No NPO Status NPO Status: NPO Clears >2 hours, Solids >8 hours Status Status: Negative HCG Anesthesia Plan Resuscitation Status: Full Code Anesthesia Technique: General Anesthesia Airway Planned: Natural Airway Monitors Used: Standard Monitors
[2020-11-19 07:13] VITALS: BMI 39.2
--- NOTE | 2020-11-19 07:45 | BOWEL_PTH ---
PATIENT: Susan Whitney LOC: [facility] U#:[id number] AGE/SX: 50/F ROOM: RE11/19/[address]: Sneha Lizarraga : 1970 BED: DIS: 11/19/2020 SPEC #: [id number] RECD: 11/19/20 12:16 STATUS: PATRICK RE #: [id number] ANDREI: 11/19/20 07:[address]: Sneha Lizarraga DEPT: Surgical Specimen RECD BY: Mitra Soares ENTERED: 11/19/20 12:17 SP TYPE: Bowel OTHR DR: Jennifer Suarez Tissues: 1 - BIOPSY BOWEL 2 - BIOPSY BOWEL 3 - BIOPSY BOWEL Procedures: GROSS AND MICRO LEVEL 4 Comments: [id number]
[2020-11-19 08:00] VITALS: BP 125/64; PULSE 57; RESP 16; TEMP 36.3; O2SAT 100
--- NOTE | 2020-11-19 08:07 | W.ANESPOSTOP ---
Postoperative Evaluation Date, Time and Location Date Performed: 11/19/20 Time Performed: 08:07 Patient Location: Day Surgery Unit Vital Signs Most Recent Imported Vital Signs: Most Recent Vital Signs Temp Pulse Resp BP Pulse Ox 36.3 C L 57 L 16 125/64 100 11/19/20 08:00 11/19/20 08:00 11/19/20 08:00 11/19/20 08:00 11/19/20 08:00 Pain Score Most Recent Pain Score: Most Recent Pain Score Pain Level 0 11/19/20 08:00 Assessment Mental Status: Awake (Alert & Oriented to Patient Baseline) Airway and Respiratory Function: Patent airway with normal (patient baseline) respiratory exam Cardiovascular Function: Hemodynamically Stable Hydration Status: Adequately Hydrated Nausea & Vomiting: No Nausea or Vomiting Pain: Pt. Denies Any Pain Peripheral Nerve Block: Patient did not receive a nerve block
[2020-11-19 08:34] VITALS: BP 145/77; PULSE 63; RESP 16; TEMP 36.3; O2SAT 100
== END 2020-11-19 08:55 | disposition home or self-care (01) ==
PROVIDERS: PCP Nurse Practitioner Family; Visit Provider Surgery
PROC: 0DJD8ZZ Inspection of Lower Intestinal Tract, Via Natural or Artificial Opening Endoscopic (ICD-10-PCS; CPT 45378; principal; 2020-11-19 07:30)
DX: Z12.11 Encounter for screening for malignant neoplasm of colon (principal); K58.2 Mixed irritable bowel syndrome
CPT/HCPCS: 45380; 88305; J1100; J2405

== ENCOUNTER 2021-08-24 02:52 | Outpatient (CLI) | payer OTHER, SELFPAY ==
--- NOTE | 2021-08-24 08:00 | DI.RAD_ITS ---
Exam(s) XR SHOULDER RT COMPLETE 2+V EXAM: XR SHOULDER RT COMPLETE 2+V CLINICAL HISTORY: PAIN IN RT SHOULDER, M25.511 TECHNIQUE: COMPARISON: No exams were available for comparison FINDINGS: Five views were obtained. There is minimal soft tissue calcification projected anterior to the humer al head on the axillary view which may lie in subscapularis tendon. There are mild hypertrophic nolasco ges the acromioclavicular joint. Glenohumeral cartilaginous joint space appears well maintained. No other significant bony or soft tissue abnormality seen. IMPRESSION: Minimal degenerative changes as described above. RADIATION DOSE DELIVERED: Total DLP
== END 2021-08-24 03:12 ==
LOC: DI 02:52
PROVIDERS: PCP Nurse Practitioner Family; Visit Provider Nurse Practitioner Family
DX: M25.511 Pain in right shoulder (principal); M19.011 Primary osteoarthritis, right shoulder
CPT/HCPCS: 73030

== ENCOUNTER 2022-12-28 10:41 | Outpatient (CLI) | payer BC, SELFPAY ==
[2022-12-28 12:56] LABS: HGB 12.9 g/dL (11.2-15.7); MCH 27.2 pg (27.0-33.0); MCHC 32.3 % (32.0-36.0); MCV 84 fL (80-95); MPV 10.3 fL (8.0-11.0); Platelet Count 293 10^3/uL (130-400); RBC 4.75 10^6/uL (3.93-5.22); WBC 5.16 10^3/uL (4.4-10.8)
[2022-12-28 13:59] LABS: Vitamin D 25 Total 6.6 ng/mL (30-100)
[2022-12-28 14:09] LABS: ALT 31 U/L (14-59); AST 21 U/L (15-37); Albumin 3.8 g/dL (3.4-5.0); Alkaline Phosphatase 127 U/L (46-116); Anion Gap 9.3 mmol/L (3-11); BUN 10 mg/dL (7-18); Bilirubin, Total 1.2 mg/dL (0.2-1.0); CO2 27.7 mmol/L (21.0-32.0); CREATININE 0.5 mg/dL (0.55-1.02); Calcium 9.2 mg/dL (8.5-10.1); Calculated LDL 139 mg/dL (<100); Chloride 103 mmol/L (98-107); Cholesterol 216 mg/dL (<200); Estimated GFR 111.39 (mL/min/1.73m2); Glucose 92 mg/dL (74-106); HDL Cholesterol 65 mg/dL (40-60); Potassium 3.5 mmol/L (3.5-5.1); Sodium 140 mmol/L (136-145); Total Protein 7.9 g/dL (6.4-8.2); Triglyceride 62 mg/dL (<150); Vitamin B12 685 pg/mL (193-986)
== END 2022-12-28 10:42 | disposition home or self-care (01) ==
LOC: LOS 10:42
PROVIDERS: PCP Family Medicine; Referring Provider Family Medicine; Visit Provider Family Medicine
DX: E78.5 Hyperlipidemia, unspecified (principal); R53.83 Other fatigue; G40.909 Epilepsy, unspecified, not intractable, without status epilepticus; R10.9 Unspecified abdominal pain; D64.9 Anemia, unspecified
CPT/HCPCS: 36415; 80053; 80061; 82306; 85027; 82607

== ENCOUNTER → 2023-03-20 00:39 | Outpatient (CLI) | payer BC, SELFPAY ==
--- NOTE | 2023-03-20 08:45 | DI.MAMMO_ITS ---
Exam(s) MAMMO SCREENING EXAM: MAMMO SCREENING CLINICAL HISTORY: screening, Z12.39. TECHNIQUE: Bilateral full field digital CC and MLO mammographic images were obtained with 3D tomosyn thesis and utilizing computer aided detection (CAD). COMPARISON: Prior mammograms were reviewed. FINDINGS: There has been no significant change in the appearance and distribution of the fibroglandular tissue. No CAD designations. In the left breast on the 3D MLO view there is a subtle nodular density now evident, measuring 10 x 7 mm located 6 cm in from the nipple. Also in the left breast on the MLO view is a 2nd smaller asymmetric density-possible nodule which is more evident than on prior mammogram of 2020. Similar distance from nipple. There are no malignant-appearing microcalcification groups in either breast. There is no significant architectural distortion nor skin thickening-retraction. IMPRESSION: 1. No radiographic evidence of malignancy in the right breast. 2. There are 2 asymmetric densities-possible nodules in the left breast now evident, the larger measu ring 10 x 7 mm. Spot compression views and ultrasound recommended. BI-RADS Category 0 - Assessment Incomplete: Need additional imaging evaluation Breast Density - Category B - Scattered areas of fibroglandular density Breast density Category C or D implies that the patient has dense breast tissue. Dense breast tissue can make it harder to find cancer on a mammogram. Dense breast tissue is also associated with an incr eased risk of breast cancer. This information about the result of the mammogram report was provided to the patient to raise their awareness. Use this report when you speak with the patient about their risks for breast cancer, which includes their family history. At that time, you may recommend additional screening tests (Ultrasoun d or MRI) as these tests may add significant information. A negative radiographic report should not delay biopsy if a dominant or clinically suspicious mass is present. Up to ten percent of cancers are not identified on mammography. A negative report may reinforce clinical impression. Adenosis and dense breasts may obscure an underlying neoplasm. False positive reports average 6 to 10%. Patient will receive a letter notifying them of these results.
== END ==
PROVIDERS: PCP Family Medicine; Visit Provider Family Medicine
DX: Z12.31 Encounter for screening mammogram for malignant neoplasm of breast (principal)
CPT/HCPCS: 77063; 77067

== ENCOUNTER → 2023-03-29 01:18 | Outpatient (CLI) | payer BC, SELFPAY ==
--- NOTE | 2023-03-29 | DI.US_ITS ---
Exam(s) MG MAMMO SCREEN CALL BACK UNI US BREAST LT LIMITED EXAM: MG MAMMO SCREEN CALL BACK UNI and U/S breast LT limited CLINICAL HISTORY: F/U MAMMO, 2 ASYMMETRIC DENSITIES,. TECHNIQUE: Craniocaudal and mediolateral oblique Full Field Digital Mammography views of the left br east with Computer Aided Diagnosis followed by Tomosynthesis and left breast ultrasound. COMPARISON: Comparison is made with prior examinations. FINDINGS: Mammography/Tomosynthesis: Masses/Architectural Distortion: The areas of concern are no longer visualized on the additional view s. No suspicious nodules or areas of architectural distortion are seen. Microcalcifictions: No suspicious pleomorphic-type are seen. Skin Thickening/Nipple Retraction: None. Limited left breast US: Echotexture: Normal appearance of the glandular tissue. Shadowing: No suspicious foci. Cyst: None. Solid lesions: None seen. Ductal dilation: None. IMPRESSION: 1. No evidence of malignancy is noted. 2. Unless there is more urgent need, follow-up screening mammography is recommended, as per [place] [employer] guidelines. 3. The findings were discussed with the patient on the date of the examination. BI-RADS Category 1 - Negative Breast Density - Category B - Scattered areas of fibroglandular density Breast density Category C or D implies that the patient has dense breast tissue. Dense breast tissue can make it harder to find cancer on a mammogram. Dense breast tissue is also associated with an incr eased risk of breast cancer. This information about the result of the mammogram report was provided to the patient to raise their awareness. Use this report when you speak with the patient about their risks for breast cancer, which includes their family history. At that time, you may recommend additional screening tests (Ultrasoun d or MRI) as these tests may add significant information. A negative radiographic report should not delay biopsy if a dominant or clinically suspicious mass is present. Up to ten percent of cancers are not identified on mammography. A negative report may reinforce clinical impression. Adenosis and dense breasts may obscure an underlying neoplasm. False positive reports average 6 to 10%. Patient will receive a letter notifying them of these results.
== END ==
PROVIDERS: PCP Family Medicine; Visit Provider Family Medicine
DX: Z12.31 Encounter for screening mammogram for malignant neoplasm of breast (principal); R92.8 Other abnormal and inconclusive findings on diagnostic imaging of breast
CPT/HCPCS: 76642; 77063; 77067

== ENCOUNTER 2023-05-22 03:20 | Outpatient (CLI) | payer BC, SELFPAY ==
[2023-05-22 14:58] LABS: Vitamin D 25 Total 17.5 ng/mL (30-100)
== END 2023-05-22 03:21 | disposition home or self-care (01) ==
LOC: LBO 03:20
PROVIDERS: PCP Family Medicine; Visit Provider Family Medicine
DX: G40.909 Epilepsy, unspecified, not intractable, without status epilepticus (principal)
CPT/HCPCS: 36415; 82306

== ENCOUNTER → 2023-09-13 00:22 | Outpatient (CLI) | payer BC, SELFPAY ==
--- NOTE | 2023-09-13 13:55 | DI.RAD_ITS ---
Exam(s) XR FOOT LT COMPLETE EXAM: XR FOOT LT COMPLETE CLINICAL HISTORY: Left foot pain, M79.672. TECHNIQUE: 2D digital imaging was performed. Three views. COMPARISON: CR XR FOOT LT COMPLETE from 07/02/2020 CR XR FOOT RT COMPLETE from 09/13/2023 FINDINGS: BONES: No acute fracture is present. No bony destructive lesion is seen. Fusion at tibiotalar joint.. No screws have been removed. Two brent are noted. Heel spurs. Tibiotalar joint prosthesis. JOINTS: No dislocation present. SOFT TISSUE: Normal. IMPRESSION: Postsurgical and degenerative changes DATA REPOSITORY: RADIATION DOSE DELIVERED:
--- NOTE | 2023-09-13 13:55 | DI.RAD_ITS ---
Exam(s) XR FOOT RT COMPLETE EXAM: XR FOOT RT COMPLETE CLINICAL HISTORY: Right foot pain, M79.671. TECHNIQUE: 2D digital imaging was performed. Three views. COMPARISON: CR XR FOOT LT COMPLETE from 07/02/2020 FINDINGS: BONES: No acute fracture is present. No bony destructive lesion is seen. Heel spurs. JOINTS: No dislocation present. [id number] degenerative changes in the intertarsal articulatio ns. SOFT TISSUE: Normal. IMPRESSION: Degenerative changes and heel spurs. DATA REPOSITORY: RADIATION DOSE DELIVERED:
== END ==
PROVIDERS: PCP Family Medicine; Visit Provider Podiatrist
DX: M79.672 Pain in left foot (principal); M79.671 Pain in right foot
CPT/HCPCS: 73630

== ENCOUNTER 2023-11-15 04:22 | Outpatient (CLI) | payer BC, SELFPAY ==
--- OUTSIDE RECORDS SUMMARY | 2023-11-15 04:24 | XMS_ITS | Clinical Summary ---
Author Organization [facility] [place] [address] Care Team Providers Care Client Executive Name Role Phone Ramiro Melo MD Primary Care Provider [phone] Allergies Active Allergy Reactions Criticality Noted Date Comments Adhesive Rash Medium 07/02/2020 Other reaction(s): Skin Rash Codeine Medium 10/14/2015 Low blood pressure Hydrocodone Hives Medium 11/19/2020 Latex High 10/13/2015 Other reaction(s): Skin Rash, itchy tongue, respiratory distress Meperidine Hives Medium 10/13/2015 Nsaids (Non-Steroidal Anti-Inflammatory Drug) Medium 07/02/2020 Other reaction(s): d/t vertical sleeve gastectomy Other reaction(s): d/t vertical sleeve gastectomy Oxycodone Hives Medium 11/19/2020 Oxycodone-Acetaminophe n Hives Medium 10/13/2015 Respiratory distress, tongue swelling/itchiness Promethazine Shortness Of Breath High 10/13/2015 Weezing/ chest tightness Promethazine Hcl High 11/19/2020 Other reaction(s): chest tightness/SOB Hydrocodone-Acetaminop hen Hives Medium 10/13/2015 Respiratory distress, swollen/itchy tongue Medications Medication Sig Dispensed Refills Start Date End Date Status albuteroL 90 mcg/actuation HFA Aerosol Inhaler INHALE ONE TO TWO PUFFS BY MOUTH EVERY 4 TO 6 HOURS NEEDED 06/10/2020 Active multivitamin Capsule Take 1 capsule by mouth daily. Active cholecalciferol, Vitamin D3, 50 mcg (2,000 unit) Capsule Take 2,000 Units by mouth daily. 0208-5622 units prescribed Active acetaminophen (Tylenol) 500 mg Tablet Take 2 tablets by mouth every 8 hours. Continue the Tylenol around the clock for 10 days after surgery, (12/01/21). Then may take if needed per package insert. Do not take more than 3,000 mg of Tylenol in 24 hours. 11/22/2021 Active ibuprofen (Advil) 600 mg Tablet Take 1 tablet by mouth every 6 hours as needed for Pain (Alternate with Tylenol for acute post-op surgical pain). 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 Mayo) 12/01/2020 Resolved Problems Problem Noted Date Diagnosed Date Resolved Date Arthritis of left ankle 10/13/2020 11 Left foot pain 10/14/2015 02/22/2022 Immunizations Name Administration Dates Next Due Merna Monovalent Covid-19 Vaccine 01/07/2021 Tdap 05/09/2016 Family History Medical History Relation Comments Macular Degeneration Sister Relation Status Comments Sister Social History Tobacco Use Types Packs/Day Years Used Date Smoking Tobacco: Never Smokeless Tobacco: Never Tobacco Cessation:Counseling Given: Not Answered Alcohol Use Standard Drinks/Week Comments Yes 0 (1 standard drink = 0.6 oz pure alcohol) Rarely drink. At most Maybe 1 shot or 1 wine cooler a month Sex and Gender Information Value Date Recorded Sex Assigned at Not on file Gender Identity Female 08/10/2020 7:17 AM EDT Sexual Orientation Straight 08/10/2020 7: 16 AM EDT Last Filed Vital Signs Vital Sign Reading Time Taken Comments Blood Pressure 135/60 02/21/2022 2:05 PM EST Pulse 66 02/21/2022 2:05 PM EST Temperature 36.4 ??C (97.5 ??F) 11/22/2021 12:22 PM E DT Respiratory Rate 16 11/22/2021 12:22 PM EDT Oxygen Saturation 98% 11/22/2021 12:46 PM EDT Inhaled Oxygen Concentration - - Weight 120 kg (264 lb 8.8 oz) 11/21/2022 1:31 PM EDT Height 165.1 cm (5' 5) 11/21/2022 1:31 PM EDT Body Mass Index 44.02 11/21/2022 1:31 PM EDT Plan of Treatment Upcoming Encounters Date Type Department Care Team (Late st Contact Info) Description 12/04/2023 8:00 AM EDT Office [place] [address] Cyn Muprhy, PT [facility]YS[facility] & [place] [address] 12/04/2023 10:45 AM EDT Appointment XRay at [address] [place] [address] 12/04/2023 11:40 AM EDT Office [place] [address] Jennifer Stanley, LEAF [employer] PICKER [facility] [place] [address] Health Maintenance Due Date Last Done Comments CT Colonography 1968 Colonoscopy 1968 Colorectal Cancer Screening 1968 FIT DNA 1968 FIT 1968 Sigmoidoscopy (10 year) with FIT yearly 1968 Sigmoidoscopy 1968 Pneumococcal Vaccine: At-Risk 5-64yrs (1 of 2 - PCV) 1 05/20/1973 HIV screen 1986 Hepatitis C Screening 1986 Lipid Screening 1986 Hepatitis B vaccine (0-59 yrs) (1) 1987 HPV test 1998 PAP Smear 1998 Breast Cancer Share Decision Needed 2008 Breast Cancer screening 2008 Zoster vaccine (1 of 2) 2018 Covid-19 Vaccine (2 - season) 2022 Advance Directive 2023 Influenza (Flu) vaccine (1 o f 1 - Influenza standard series) 11/25/2023 Diabetes Screening (HgbA1C or Glucose) 10/25/2024 Tetanus vaccine 05/09/2026 05/09/2016 Tdap adult Completed 05/09/2016 Medical Devices Implanted Type Area Wrapper Sizer Device Identifier Shelf Expiration Date Model / Serial / Lot Graft Bone Filler [id number] [id number] Canc Preservon Readigraft ([id number]) (Autoreq) - [id number] Implanted:Qty: 1 on 12/01/2020 by Tio Mayo MD at [facility] IMPLANTS Left: Ankle [facility] 02/07/2025 [id number] / [id number] / Staple [id number] Comp Nitinol Speed Titan ([id number]) (Autoreq) - [id number] Implanted:Qty: 1 on 12/01/2020 by Tio Mayo MD at [facility] IMPLANTS Left: Ankle [facility] 02/04/2023 [id number] / / [id number] Staple [id number] Comp Nitinol Speed Titan ([id number]) (Autoreq) - [id number] Implanted:Qty: 1 on 12/01/2020 by Tio Mayo MD at [facility] IMPLANTS Left: Ankle [facility] 05/09/2023 [id number] / / [id number] Component Talar Ankle Joint Sz 2 Infinity Adaptis ([id number]) - [id number] Implanted:Qty: 1 on 11/21/2021 by Tio Mayo MD at [facility] IMPLANTS Left: Ankle [employer] [facility] [facility] 07/22/2028 [id number] / / [id number] Infinity Adaptis Tibial Tray Size 3 Material [id number] Implanted:Qty: 1 on 11/21/2021 by Tio Mayo MD at [facility] Left: Ankle 09/22/2029 [id number] / / [id number] Infinity Everlast Cross-Linked Poly Insert Size 2+ H:8mm Implanted:Qty: 1 on 11/21/2021 by Tio Mayo MD at [facility] Left: Ankle 10/06/2027 [id number] / / [id number] Explanted Type Area Wrapper Sizer Device Identifier Shelf Expiration Date Model / Serial / Lot K Wire Fix [id number] Trocar Point Threaded Bth End Ss ([id number]) - [id number] Explanted:Qty : 1 on 12/01/2020 by Tio Mayo MD at [facility] IMPLANTS Left: Ankle [employer] - [employer] [id number] S / / Pin Fix 7/64x9in Trocar Point Sgl End Ss Steinmann ([id number]) - [id number] Explanted:Qty : 1 on 12/01/2020 by Tio Mayo MD at [facility] IMPLANTS Left: Ankle [employer] - MICRO[employer]RE [id number] S / / Pin Fix 5/32x9in Trocar Point Sgl End Ss Marthajeremy ([id number]) - [id number] Explanted:Qty : 1 on 12/01/2020 by Tio Mayo MD at [facility] IMPLANTS Left: Ankle [employer] - MICRO[employer]RE [id number] / / Procedures Procedure Name Priority Date/Time Associated Diagnosis Comments HC VENIPUNCTURE Routine 10/25/2021 2:51 PM EDT Preop examination Arthritis of left ankle History of gastrectomy from Last 3 Months or Most Recently Relevant to Health Maintenance Results * (ABNORMAL) Basic Metabolic Panel (non-fasting) (10/25/2021 2:51 PM EDT) Glucose 96 65 - 199 mg/dL [facility] Comment:Diabetes: >=200 mg/d L plus symptoms Blood Urea Nitrogen 18 8 - 18 mg/dL [facility] Creatinine 0.59(L) 0.70 - 1.20 mg/dL [facility] Sodium 141 135 - 145 mmol/L [facility] Potassium 4.1 3.5 - 5.0 mmol/L [facility] Comment: Please note: ??Patients with WBC >100,000 may have falsely elevated Potassium levels. ??For accurate Potassium quantification in these patients send serum separator tube (gold top) for subsequent determinations. ??Contact the Clinical Chemistry Laboratory if there are any questions. Chloride 104 98 - 107 mmol/L [facility] Carbon Dioxide 27 22 - 31 mmol/L [facility] Anion Gap 10 5 - 15 mmol/L [facility] Calcium 9.4 8.5 - 10.5 mg/dL [facility] Est Glomerular Filtration Rate 108 >=60 mL/min/1. 73 m?? [facility] Comment: This patient's estimated GFR was calculated using the 2020 CKD-EPI equation. The estimated GFR can vary from the measured GFR by up to 30% in the absence of rapidly changing kidney function. Assessment of the estimated GFR is not appropriate when creatinine concentrations are rapidly changing. For clinical situations in which a more precise estimate of GFR is necessary, consider alternative methods of GFR estimation such as a 24-hour urine creatinine clearance. Assignment of CKD stage 1-5 for patients with an eGFR near the transition point between stages may be based on clinical assessment of muscle mass and symptoms in addition to eGFR. 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 11/30/2020 2:39 PM * Attempt Cardiopulmonary Resuscitation - Inpatient (Latest Code Status on File) Date Activated Date Inactivated Comments 11/21/2021 10:08 AM 11/22/2021 5:30 PM Question Answer Comments Code Status decision made by: Patient * Attempt Cardiopulmonary Resuscitation - Inpatient Date Activated Date Inactivated Comments 12/01/2020 7:22 AM 12/01/2020 1:51 PM Question Answer Comments Code Status decision made by: Patient Care Teams Client Executive Relationship Specialty Start Date End Date Ramiro Melo MD [address] [place] [address] PCP - General Family Medicine 11/21/22
--- OUTSIDE RECORDS SUMMARY | 2023-11-15 04:24 | XMS_ITS | Encounter Summary ---
Author Organization [facility] Address [facility] [place] [address] Care Team Providers Care Heat Seal Operator Name Role Phone Ramiro Melo MD Primary Care Provider [phone] Encounter Details Date Type Department Care Team (Latest Contact Info) Description 11/21/2022 Travel Social History Tobacco Use Types Packs/Day Years Used Date Smoking Tobacco: Never Smokeless Tobacco: Never Alcohol Use Standard Drinks/Week Comments Yes 0 (1 standard drink = 0.6 oz pure alcohol) Rarely drink. At most Maybe 1 shot or 1 wine cooler a month Sex and Gender Information Value Date Recorded Sex Assigned at Not on file Gender Identity Female 08/10/2020 7:17 AM EDT Sexual Orientation Straight 08/10/2020 7: 16 AM EDT documented as of this encounter Plan of Treatment Upcoming Encounters Date Type Department Care Team (Late st Contact Info) Description 12/04/2023 8:00 AM EDT Office [place] [address] Cyn Murphy, PT [facility] PHYSICAL MEDICINE & [place] [address] 12/04/2023 10:45 AM EDT Appointment XRay at [address] [place] [address] 12/04/2023 11:40 AM EDT Office [place] [address] Jennifer Stanley APRN [facility] [place] [address] documented as of this encounter Visit Diagnoses Not on filedocumented in this encounter Care Teams Heat Seal Operator Relationship Specialty Start Date End Date Ramiro Melo MD [address] [place] [address] PCP - General Family Medicine 11/21/22 documented as of this encounter
--- OUTSIDE RECORDS SUMMARY | 2023-11-15 04:24 | XMS_ITS | Encounter Summary ---
Author Organization [facility] Address [facility] [place] [address] Care Team Providers Care Penetration Tester Name Role Phone Jennifer Suarez APRN Primary Care Provider Encounter Details Date Type Department Care Team (Latest Contact Info) Description 02/21/2022 12:59 PM EST - 02/21/2022 11:59 PM [facility] Encounter XRay at [address] [place] [address] Iris Jackson MD [facility] [place] [address] Arthritis of left ankle Discharge Disposition: Home Social History Tobacco Use Types Packs/Day Years [...] AM EDT documented as of this encounter Medications at Time of Discharge Medication Sig Dispensed Refills Start Date End Date ibuprofen (Advil) 600 mg Tablet Take 1 tablet by mouth every 6 hours as needed for Pain (Alternate with Tylenol for acute post-op surgical pain). 60 tablet 02/21/2022 acetaminophen (Tylenol) 500 mg Tablet Take 2 tablets by mouth every 8 hours. Continue the Tylenol around the clock for 10 days after surgery, (12/01/21). Then may take if needed per package insert. Do not take more than 3,000 mg of Tylenol in 24 hours. 11/22/2021 cholecalciferol, Vitamin D3, 50 mcg (2,000 unit) Capsule Take 2,000 Units by mouth daily. 2187-6216 units prescribed albuteroL 90 mcg/actuation HFA Aerosol Inhaler INHALE ONE TO TWO PUFFS BY MOUTH EVERY 4 TO 6 HOURS NEEDED 06/10/2020 multivitamin Capsule Take 1 capsule by mouth daily. aspirin EC 81 mg Tablet, Delayed Release (E.C.) Take 1 tablet by mouth 2 times daily. Take with food for 30 days after surgery. Last day = 12/21/21. 11/22/2021 11/21/2022 gabapentin (Neurontin) 300 mg Capsule Take by mouth as needed. 12/25/2019 11/21/2022 documented as of this encounter Plan of Treatment Upcoming Encounters Date Type Department Care Team (Late st Contact Info) Description 12/04/2023 8:00 AM EDT Office [place] [address] Cyn Murphy, PT [facility] PHYSICAL MEDICINE & [place] [address] 12/04/2023 10:45 AM EDT Appointment XRay at [address] [place] [address] 12/04/2023 11:40 AM EDT Office Visit [place] [address] Jennifer Stanley, MANAGER CRISIS [facility] [place] [address] documented as of this encounter Procedures Procedure Name Priority Date/Time Associated Diagnosis Comments XR ANKLE MIN 3 VIEWS LEFT Routine 02/21/2022 1:15 PM EST Arthritis of left ankle documented in this encounter Results * XR Ankle Min 3 views Left (Generic) (02/21/2022 1:15 PM EST) Anatomical Region Laterality Modality Ankle Left Digital Radiogra phy Impressions 02/21/2022 2:16 PM EST LEFT Unchanged and Uncomplicated total ankle arthroplasty Thank you for letting us participate in the care of this patient. ??If you are a health care provider and have any questions regarding this report, please contact the number below. ??For patients who have questions please contact the health care mgr that requested your imaging first. ? Electronically signed by: Deb Michelle MD, [facility] ([phone]), at 02/21/2022 2:16 PM Narrative 02/21/2022 2:16 PM EST EXAMINATION: XR ANKLE MIN 3 VIEWS LEFT (GENERIC) CLINICAL HISTORY: left ankle arthroplasty TECHNIQUE: 3 views LEFT ankle COMPARISON: Radiographs, December and November 2021. FINDINGS: LEFT A total ankle arthroplasty is present. Alignment: The prosthesis is unchanged in alignment. Complication: There is no loosening or fracture. Soft tissues: Unchanged diffuse soft tissue swelling around the ankle Calcaneus-healed osteotomy and uncomplicated brent. Pes planus redemonstrated. Unchanged tiny metallic bone fragments along the dorsal surface of the anterior talus. Subtalar joint-solid fusion redemonstrated. Procedure Note Deb Michelle MD - 02/21/2022 EXAMINATION: XR ANKLE MIN 3 VIEWS LEFT (GENERIC) CLINICAL HISTORY: left ankle arthroplasty TECHNIQUE: 3 views LEFT ankle COMPARISON: Radiographs, December and November 2021. FINDINGS: LEFT A total ankle arthroplasty is present. Alignment: The prosthesis is unchanged in alignment. Complication: There is no loosening or fracture. Soft tissues: Unchanged diffuse soft tissue swelling around the ankle Calcaneus-healed osteotomy and uncomplicated brent. Pes planus redemonstrated. Unchanged tiny metallic bone fragments along the dorsal surface of theanterior talus. Subtalar joint-solid fusion redemonstrated. IMPRESSION LEFT Unchanged and Uncomplicated total ankle arthroplasty Thank you for letting us participate in the care of this patient. If youare a health care provider and have any questions regarding this report,please contact the number below. For patients who have questions please contactthe health care mgr that requested your imaging first. Electronically signed by: Deb Michelle MD, [facility]([phone]), at 02/21/2022 2:16 PM Iris Jackson MD IMG DX ORDERABLES documented in this encounter Visit Diagnoses Diagnosis Arthritis of left ankle Unspecified arthropathy, ankle and foot documented in this encounter Care Teams Penetration Tester Relationship Specialty Start Date End Date Jennifer Suarez APRN [address] [place] [address] PCP - General Family Medicine 07/14/20 11/20/22 documented as of this encounter
--- OUTSIDE RECORDS SUMMARY | 2023-11-15 04:24 | XMS_ITS | Encounter Summary ---
Author Organization [facility] Address [facility] [facility] [place] [address] Care Team Providers Care Lead Web Developer Name Role Phone Ramiro Melo MD Primary Care Provider [phone] Reason for Visit * Reason Comments Follow Up Surgery L TAA DOS 11/21/21 (C OE) Encounter Details Date Type Department Care Team (Late st Contact Info) Description 11/21/2022 1:40 PM EDT Office Visit [place] [phone] Jennifer Stanley, ROMINA [facility] [place] [address] History of arthroplasty of left ankle (Primary Dx) Social History Tobacco Use Types Packs/Day Years [...] AM EDT documented as of this encounter Last Filed Vital Signs Vital Sign Reading Time Taken Comments Blood Pressure - - Pulse - - Temperature - - Respiratory Rate - - Oxygen Saturation - - Inhaled Oxygen Concentration - - Weight 120 kg (264 lb 8.8 oz) 11/21/2022 1:31 PM EDT Height 165.1 cm (5' 5) 11/21/2022 1:31 PM EDT Body Mass Index 44.02 11/21/2022 1:31 PM EDT documented in this encounter Progress Notes * Jennifer Stanley, SLITTER SCORER CUT OFF OPERATOR - 11/21/2022 1:40 PM EDT Images from the original note were not included. Arthroplasty/Orthopaedic History: LEFT ankle TAA. DOS: 11/21/2021. Dr. Mayo with prior hx of hind foot lateral wedge osteotomy 2020. Dr. Mayo Chief Complaint: one year routine rotary f/u LEFT ankle TAA HPI: Susan Whitney is a very pleasant 52 y.o. year-old female and is now 1 year stats post left ankle TAA. The patient has been doing relatively well. She does admit to feeling better than before her surgery. She feels that she would like to continue working on functional ROM particularly in DF/PFplain. Marisela does feel that she can make greater gains with DF and strength work/heel cord stretching. She is able to work with modification, taking breaks, OTC analgesics as necessary. She does need an updated handicap placard completed. No incisional complaints. No systemic or constitutional complaints. No fevers, chills, nausea, vomiting, or symptoms of infection. Susan has been ambulating with 8digitsAT and working with an HEP at this time. She is taking APAP and judicious use of NSAID's due to hx of gastric bypass surgery. Working with PT for lymphadema management of both foot/ankle/calves: needs new orders sent for compression stockings. NEW orders placed in EDH. Patient's medications, allergies, past medical, surgical, social and family histories were reviewedand updated as appropriate. ROS: Denies fever, chills, nausea, vomiting, vision change, shortness of breath, chest pain, visionchanges, headaches, bowel or bladder problem, ear, nose, sinus problem, neuro or psychiatric, or endocrine disorder not addressed above. ROS: Denies: fever, chills, night sweats, nausea, or vomiting Ht 165.1 cm (5' 5) Wt 120 kg (264 lb 8.8 oz) BMI 44.02 kg/m?? Physical Exam: Vitals: 11/21/22 1331 Weight: 120 kg (264 lb 8.8 oz) Height: 165.1 cm (5' 5) Body mass index is 44.02 kg/m??. Well-appearing female in no acute distress. Alert and Oriented x 3 and answers all questions appropriately. Here with her . LEFT ankle exam: The incision is well healed, with no signs of infection. There is mild pain over the peroneals and lateral subtalar joint. There is little motion of the subtalar joint due to hx of calcaneal osteotomy/and subtalar arthrodesis. DF: ~ 5 degrees past neutral. PF ~ 20 degrees. She is able to hold her foot to resistance with eversion. No medial sided ankle pain. No pain over the tibiotalar joint. EHL/FHL 5/5. Skin is warm, dry and well perfused. The foot is grossly SILT yet at baseline slightly decreased in the saphenous nerve distribution. Nocorresponding motor weakness. X-RAYS: updated LEFT ankle x-ray reviewed image by image in the office today reveals a well placed and positioned LEFT ankle TAA with complications. Baseline left calcaneal lateral wedge osteotomy and subtalar arthrodesis with no complications. Questionnaire Responses: 11/17/2022 6:58 PM [facility] Surgical Postop Visit PROMIS-10 General Health Very Good PROMIS-10 Quality of Life Very Good PROMIS-10 Physical Health Very Good PROMIS-10 Mental Health Good PROMIS-10 Social Activity Good PROMIS-10 Everyday Activities Mostly PROMIS-10 Pain 3 PROMIS-10 Fatigue Mild PROMIS-10 Social Roles Very Good PROMIS-10 Anxious or Depressed Rarely PROMIS PHYSICAL HEALTH SCORE 50.8 PROMIS MENTAL HEALTH SCORE 48.3 Problems with surgical incision/wound after surgery No Admitted to hospital since recent ortho surgery No Additional surgery on same body part No Satisfaction with Treatment Satisfied Choose Same Treatment Again Definitely yes No data to display No data to display ASSESSMENT/PLAN: Ms. Whitney is a 52 y.o. year old female one year status post left ankle TAA. She does admit to feeling better than before her surgery with less tibiotalar pain and improved function.Yet, she does admit to chronic lateral sided ankle pain and would like to gain better DF motion. I did offer reassurance regarding her clinical exam from today and plain radiographs. I reviewed my findings in the office today with both x-rays and clinical exam. I encouraged Marisela to continue to work on ROM DF/PF exercises. She can continue to make gains with functional ROM. Balance. Functional gaittraining. Heel cord stretching. PRE. Modalities prn. Ok to use APAP and judicious use of oral versus topical NSAID's. Ok to take breaks at work as tolerated. No updated RTW forms requested today. Continue weightbearing as tolerated and working on range of motion. Call PRN if would like to consider another round of formal PT. Ok to sign off on hand-cap placard temporary for 6 months as she continues to work on strength, conditioning and balance work. We will see her back in 1 years for repeat examination. X-rays will be needed at that time in weight bearing. I have already ordered this as a future order in the computer. Patient may return to normal activities as her pain and function allow. We discussed the appropriate precautions surrounding dental prophylaxis; according to the AAOS Appropriate Use Criteria we do not recommend antibiotic use prior to dental procedures for Susan. Recommended antibiotic: N/A If Susan has any changes in health status we recommend she contact our office prior to dental procedures for updated recommendations We also discussed maintaining good foot care and giving prompt attention to any source of infectionthroughout the body including foot ulcers and urinary tract infections. All questions were answered. Signed: JENNIFER STANLEY APRN 11/21/2022 documented in this encounter Plan of Treatment Upcoming Encounters Date Type Department Care Team (Late st Contact Info) Description 12/04/2023 8:00 AM EDT Office Visit [place] [phone] Cyn Murphy, PT [facility] PHYSICAL MEDICINE & [place] [address] 12/04/2023 10:45 AM EDT Appointment XRay at [address] [place] [phone] 12/04/2023 11:40 AM EDT Office Visit [place] [address] Jennifer Stanley APRN [facility] [place] [address] documented as of this encounter Visit Diagnoses Diagnosis History of arthroplasty of left ankle- Primary documented in this encounter Care Teams Lead Web Developer Relationship Specialty Start Date End Date Ramiro Melo MD [address] [place] [address] PCP - General Family Medicine 11/21/22 documented as of this encounter
--- OUTSIDE RECORDS SUMMARY | 2023-11-15 04:24 | XMS_ITS | Encounter Summary ---
Author Organization [facility] [place] [address] Care Team Providers Care Manager Staffing Name Role Phone Jennifer Suarez ROMINA Primary Care Provider [phone] Reason for Visit * Reason Comments Follow-up Post Op L TAA DOS: 2 (SATISH) Encounter Details Date Type Department Care Team (Late st Contact Info) Description 05/23/2022 1:00 PM EST Office [place] [phone] Jennifer Stanley APRN [facility] [place] [address] History of arthroplasty of left ankle (Primary [...] - Inhaled Oxygen Concentration - - Weight 113.4 kg (250 lb) 05/23/2022 12:52 PM EST Height 165.1 cm (5' 5) 05/23/2022 12:52 PM EST Body Mass Index 41.6 05/23/2022 12:52 PM EST documented in this encounter Progress Notes * Jennifer Stanley, APPLIED RESEARCH DIRECTOR - 05/23/2022 1:00 PM EST Arthroplasty/Orthopaedic History: 1. LEFT ankle TAA. DOS: 11/21/2021. Dr. Mayo. Chief Complaint: ~ 6 months s/p LEFT ankle TAA HPI: Susan Whitney is a very pleasant 52 y.o. year-old female and is now 6 months status post leftankle arthroplasty. Marisela is doing well overall. She does admit to good days and back days. ROM is improving. Pain is as above. She does admit to feeling better than before her surgery stating that if I had to do it all over again I would. No interval falls or injuries. No incisional complaints. No fevers or chills. 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 She is very happy with her new job. Patient's medications, allergies, past medical, surgical, social and family histories were reviewedand updated as appropriate. ROS: Denies: fever, chills, night sweats, nausea, or vomiting Physical Exam: Vitals: 05/23/22 1252 Weight: 113.4 kg (250 lb) Height: 165.1 cm (5' 5) Body mass index is 41.6 kg/m??. Well-appearing female in no acute distress. Alert and Oriented x 3 and answers all questions appropriately. LEFT ankle exam: Gait: Mild start up pain Shoe wear: Excellent fitting Hoka sneakers. The incisions are healed with no theresa-incisional erythema or evidence of infection. Active DF: 15 degrees. Passive DF: Same degrees. Active PF: 25 degrees. Passive PF: 30 degrees. Pain with inversion: none Pain with eversion: mild Peroneal strength in full maximal DF: 5-/5 Posterior tibialis strength in full maximal DF: 5/5 No gross instability with a/p drawer or inversion stress Foot is sensate and well perfused, DP and PT 2+ to palpation. Sensation intact to 1st webspace, medial and lateral sole and dorsum. X-RAYS: Multiple radiographic views were obtained at my request and reviewed with the patient. X-rays show a well-placed prosthesis with no evidence of fracture, subsidence, loosening, or periprosthetic complication. Dr. Mayo and I reviewed the lateral images together stable appearing lucent lines at the tibial tray yet the screw fixations are solid and unchanged per Dr. Mayo. Questionnaire Responses:No flowsheet data found. No flowsheet data found. ASSESSMENT/PLAN: Ms. Whitney is a 52 y.o. year old female 6 months status post left ankle TAA. Marisela is doing relatively well. She does admit to feeling better than before her surgery. At this time, Ok to continue weightbearing as tolerated and working on range of motion. I emphasized the importance of working on peroneal strengthening, balance work, progress as pain and pain and function allow. We will see her back in 6 months for repeat examination. X-rays will be needed at that time in weight bearing. I have already ordered this as a future order in the computer. I emphasized the importance of coming in sooner for any problems or concerns. If Marisela feels that she is hitting a plateau in her recovery or any problems or concerns. Weight bearing: WBAT Physical therapy: Progress to HEP when ready Work capacity: Full duty. No new RTW forms requested. [employer] applications: Ok to update today. Pt agrees, questions solicited/answered, will return as scheduled and as needed for concerns or questions. Pt understands they may also call us prn for above. We discussed the appropriate precautions surrounding dental prophylaxis; according to the AAOS Appropriate Use Criteria we do not recommend antibiotic use prior to dental procedures for Susan. Recommended antibiotic: N/A If Susan has any changes in health status we recommend she contact our office prior to dental procedures for updated recommendations Should maintain good foot care and giving prompt attention to any source of infection throughout the body including foot ulcers and urinary tract infections. documented in this encounter Plan of Treatment Upcoming Encounters Date Type Department Care Team (Late st Contact Info) Description 12/04/2023 8:00 AM EDT Office [place] [address] Cyn Murphy, PT [facility] PHYSICAL MEDICINE & [place] [address] 12/04/2023 10:45 AM EDT Appointment XRay at [address] [place] [phone] 12/04/2023 11:40 AM EDT Office Visit [facility]opaedics at [facility] [place] [phone] Jennifer Stanley, APPLIED RESEARCH DIRECTOR [facility] [place] [address] documented as of this encounter Results * XR Ankle Min 3 views Left (Generic) (11/21/2022 12:39 PM EDT) Anatomical Region Laterality Modality Ankle Left Digital Radiogra phy Impressions 11/21/2022 4:54 PM EDT Unchanged and uncomplicated tibiotalar arthroplasty. I have personally reviewed the image(s) and the resident's interpretation and agree with the findings, Gifty Cruz MD at 11/21/2022 4:54 PM Thank you for letting us participate in the care of this patient. ??If you are a health care provider and have any questions regarding this report, please contact the number below. ??For patients who have questions please contact the health childcare aide that requested your imaging first. ? Narrative 11/21/2022 4:54 PM EDT EXAMINATION: XR ANKLE MIN 3 VIEWS LEFT (GENERIC) CLINICAL HISTORY: left ankle TAA, x-ray in weight bearing ? change from previous x-ray TECHNIQUE: 3 views LEFT ankle, 3 images COMPARISON: Left ankle radiographs 05/23/2022, 12/06/2021, CT left ankle 06/10/2021, left ankle fluoroscopic images 11/12/2021 FINDINGS: Status post total ankle arthroplasty in standard alignment. No periprosthetic fracture, loosening, or evidence of hardware complication. Redemonstrated healed calcaneal osteotomy and mature osseous fusion across the subtalar joint. Procedure Note Gifty Cruz MD - 11/21/2022 EXAMINATION: XR ANKLE MIN 3 VIEWS LEFT (GENERIC) CLINICAL HISTORY: left ankle TAA, x-ray in weight bearing ? change from previous x-ray TECHNIQUE: 3 views LEFT ankle, 3 images COMPARISON: Left ankle radiographs 05/23/2022, 12/06/2021, CT left ankle 06/10/2021, leftankle fluoroscopic images 11/12/2021 FINDINGS: Status post total ankle arthroplasty in standard alignment. Noperiprosthetic fracture, loosening, or evidence of hardware complication. Redemonstrated healed calcaneal osteotomy and mature osseous fusion acrossthe subtalar joint. IMPRESSION Unchanged and uncomplicated tibiotalar arthroplasty. I have personally reviewed the image(s) and the resident's interpretationand agree with the findings, Gifty Cruz MD at 11/21/2022 4:54 PM Thank you for letting us participate in the care of this patient. If youare a health care provider and have any questions regarding this report,please contact the number below. For patients who have questions please contactthe health childcare aide that requested your imaging first. Jennifer Stanley APRN IMG DX ORDERABLES documented in this encounter Visit Diagnoses Diagnosis History of arthroplasty of left ankle- Primary History of arthroplasty of left ankle documented in this encounter Care Teams Manager Staffing Relationship Specialty Start Date End Date Jennifer Suarez APRN [address] [place] [address] PCP - General Family Medicine 07/14/20 11/20/22 documented as of this encounter
--- OUTSIDE RECORDS SUMMARY | 2023-11-15 04:24 | XMS_ITS | Encounter Summary ---
Author Organization [facility] Address [facility] [place] [address] Care Team Providers Care Practice Clinician Name Role Phone Ramiro Melo MD Primary Care Provider [phone] Reason for Visit * Physical Therapy (Routine) - Closed Specialty Diagnoses / Procedures Referred By Cheri silverman Referred To Contact Physical Therapy Diagnoses Acquired left hindfoot varus Edema of left lower leg History of arthroplasty of left ankle Jennifer Stanley, ROMINA [facility] [place] [address] Marsha Murphy, PT [facility] PHYSICAL MEDICINE & [place] [address] Referral ID Status Reason Start Date Expiration Date V isits Requested Visits Authorized [id number] Closed Evaluate and Treat 10/23/2022 10/23/2023 30 30 Encounter Details Date Type Department Care Team (Late st Contact Info) Description 04/17/2023 9:00 AM EST Office [place] [address] Marsha Murphy, PT [facility] PHYSICAL MEDICINE & [place] [address] Secondary lymphedema Social History Tobacco Use Types Packs/Day Years [...] AM EDT documented as of this encounter Miscellaneous Notes * Treatment - Therapy - Luannerose Marsha Rena, PT - 04/17/2023 9:00 AM EST Images from the original note were not included. LE LYMPHEDEMA INITIAL EXAMINATION Date of Exam/First treatment: 11/21/22 Date of Onset ~ 2016 Referring Provider: Tio Mayo MD Diagnosis and pertinent co-morbidities: lymphedema left >R L/E CURRENT HISTORY: Susan Whitney is a 51 y.o. female who first noticed left leg swelling after her ankle fusion (of note her incision was slow to heal). She had noticed some mild swelling in both lower legs prior but it would resolve overnight. The right continues to resolve over night the left improves some. Swelling increases as the day goes on. Had bought compression knee highs at [employer] 12-15 mmhg, They wrinkle and cut in at the ankle andcut in behind the knee. Pt known to me from [employer] 08/26/21. Since last seen pt has been wearing a compression wrap sample thatI gave her and a Farrow Strong that she ordered on the internet (no insurance at the time that would cover cost). Those wraps are now worn and need replacing. She also ordered a Farrow Strong footpiece but in a size large which is too big. She also applies short stretch bandages ~ every couple of weeks in order to achieve further reduction. Weight has been stable ED on 07/16 four left lower extremity erythema, edema and pain from the ankle to the mid calf discharged on Keflex for cellulitis who presents to the Emergency Department due to persistent swelling inher left lower extremity, despite not missing any doses of antibiotics. LLE Duplex Ultrasound: negative for femoral or popliteal DVT. Calf veins patent but not adequately visualized due to body habitus. 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 Left Total ankle arthroplasty pending H/o bilateral L/E swelling left>right Past Medical History Past Medical History: Diagnosis Date Allergy Arthritis of left ankle 10/13/2020 Asthma Complex regional pain syndrome i of right upper limb Deafness in left ear LATEX ALLERGY Work History and personal factors affecting plan of care : lives with [employer], in [place], [place]. 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 Current Exercise: none PAIN: legs feel heavy particularly later in the day, tender to palpation and bruises easily. FUNCTIONAL LIMITATIONS: On a difficulty scale with 0 being unable to perform an activity, and 10 being able to perform at a pre injury level -AT RISK FOR CELLULITIS, DELAYED WOUND HEALING CLINICAL FINDINGS: 1) observation, posture WNL 2) ROM :WFL- able to rajwinder socks and shoes independently with effort. 3) strength;N/T 4) palpation/inspection No tenderness with palpation noted. Non pitting edema. Mild hemosiderin staining. Small ankle crease developing Note: Picture(s) taken with verbal consent given by patient. S: Wearing wraps daily. Foot and ankle wraps don't fit inside shoes so wears just the Farrow HybridAD1 with Farrow Strong wrap during the day when working. ON her feel all day. Notices pocket of swelling at ankle at the end of the day. Legs ache. Interested in trial of pneumatic pump. O: 5) LE circumferences (cm) Right 08/26/21 Left 08/26/21 Right 11/21/22 Left 11/21/22 Right 04/17/23 Left 04/17/23 mtp s 24.3 24.0 24.5 24.3 24.8 24.3 Mid foot 23.5 24.0 24.0 23.5 24.0 23.5 Y 33.2 35.5 35.2 37.0 34.5 35.4 Ankle 29.0 30.2 29.5 31.0 29.0 30.0 Calf 49.8 51.5 51.0 52.0 48.5 50.5 D 46.6 49.2 48.0 51.0 46.0 48.0 Knee crease 46.2 47.5 Top patella +5 59.0 61.8 +12 69.0 69.5 +22 78.5 78.0 Floor-D length 41.0 A-D length 33.[address] mtp-heel 17.5 17.5 Hips- inches 56 Waist- inches 46 Notes: Today Measurements retaken Looked at Flat knit options which would be a little harder to put on. Pt is going to think about it. She likes the ease of donning wraps, She did receive her Wearease Capris although she doesn't find they give much compression. She didn't bring them with her today. I recommended the [place] [employer] Sensation tiffany next time or she can order Bioflect tiffany on-line (more reasonably priced). Instruction in exercises to promote lymphatic flow -static gluts, adduction, quads and ankle pumps. Pt wearing compression wraps she received in Dec 2022. Farrow Strong -size larger Michaels Farrow Strong footpiece size S- michaels Farrow Hybrid socks (2 pairs) size standard, AD1 20-30 mmhg skin tone compression tiffany- OTS -like Wearease Short Tiffany 613, size 2X Previously: Short stretch bandages applied to left L/E to knee. Pt and SO Ye instructed how to self bandage and video sent via [facility] Compression bandage precautions: pt advised to wear bandages 24 -48 hrs as tolerated. Advised patient take to remove bandages immediately if any increase in pain, increased swelling or discoloration. A 51 yo female with gradual onset of mild swelling bilateral L/E in recent years but significant increase in left L/E after subtalar fusion 2017 with slow wound healing. Recent cellulitis. Likely bilateral lymphedema L>R. Possible some venous insufficieny by no venous venous U/S to confirm. Likely has lipedema component given easy bruising, pain and body habitus. Pt has made some gains with compression garments but still with ongoing swelling bilateral L/E despite > 4 weeks of compression, exercise and self MLD Pt at risk for cellulitis. The patient's rehabilitation potential is good GOALS: Therapy Short Term Goals 6 weeks 1. Obtain well fitting compression garments. MET 2. independent in self care. 3. Evaluate for pump Therapy Slip Bridge Operator Goals 8 weeks 1. maintain reduction in swelling. 2. Fit with compression stockings after surgery (after post op swelling reduced). Recommend flat knit, custom knee highs PLAN: Frequency and duration: FU in March to assess progress and fit for flat knit knee highs Treatment: compression bandaging Exercise teaching self care garment fitting The plan has been discussed with the patient and she has agreed with it. Total Treatment time: 45 minutes Total Timed Code Treatment: 45 minutes self care/home management MARSHA MURPHY PT, CLT documented in this encounter Plan of Treatment Upcoming Encounters Date Type Department Care Team (Late st Contact Info) Description 12/04/2023 8:00 AM EDT Office [place] [address] Marsha Murphy, PT [facility] PHYSICAL MEDICINE & [place] [address] 12/04/2023 10:45 AM EDT Appointment XRay at [address] [place] [address] 12/04/2023 11:40 AM EDT Office [place] [address] Jennifer Stanley, ROMINA [facility] [place] [address] documented as of this encounter Visit Diagnoses Diagnosis Secondary lymphedema Other lymphedema documented in this encounter Care Teams Practice Clinician Relationship Specialty Start Date End Date Ramiro Melo MD [address] [place] [address] PCP - General Family Medicine 11/21/22 documented as of this encounter
--- OUTSIDE RECORDS SUMMARY | 2023-11-15 04:24 | XMS_ITS | Encounter Summary ---
Author Organization [facility] Address [facility] [place] [address] Care Team Providers Care Shift Supervisor Rn Name Role Phone Ramiro Melo MD Primary Care Provider [phone] Encounter Details Date Type Department Care Team (Latest Contact Info) Description 04/17/2023 Travel Social History Tobacco Use Types Packs/Day [...] AM EDT Office Visit [place] [address] Cyn Murphy, PT [facility] PHYSICAL MEDICINE & [place] [address] 12/04/2023 10:45 AM EDT Appointment XRay at [address] [place] [address] 12/04/2023 11:40 AM EDT Office Visit [place] [address] Jennifer Stanley APRN [facility] [place] [address] documented as of this encounter Visit Diagnoses Not on filedocumented in this encounter Care Teams Shift Supervisor Rn Relationship Specialty Start Date End Date Ramiro Melo MD [address] [place] [address] PCP - General Family Medicine 11/21/22 documented as of this encounter
--- OUTSIDE RECORDS SUMMARY | 2023-11-15 04:24 | XMS_ITS | Encounter Summary ---
Author Organization [facility] [place] [address] Care Team Providers Care Atlassian Administrator Name Role Phone Ramiro Melo MD Primary Care Provider [phone] Encounter Details Date Type Department Care Team (Late st Contact Info) Description 11/24/2022 Orders [place] [address] Tio Mayo MD [facility] [place] [address] Pain of left lower extremity Social History Tobacco Use Types Packs/Day Years [...] AM EDT Office [place] [address] Cyn Murphy, PT [facility] PHYSICAL MEDICINE & [place] [address] 12/04/2023 10:45 AM EDT Appointment XRay at [address] [place] [address] 12/04/2023 11:40 AM EDT Office Visit [facility] [place] [address] Jennifer Stanley, ROMINA [facility] [place] [address] documented as of this encounter Visit Diagnoses Diagnosis Pain of left lower extremity documented in this encounter Care Teams Atlassian Administrator Relationship Specialty Start Date End Date Ramiro Melo MD [address] [place] [address] PCP - General Family Medicine 11/21/22 documented as of this encounter
--- OUTSIDE RECORDS SUMMARY | 2023-11-15 04:24 | XMS_ITS | Encounter Summary ---
Author Organization [facility] Address [facility] [place] [address] Care Team Providers Care Railroad Wheels And Axle Inspector Name Role Phone Jennifer Suarez ROMINA Primary Care Provider [phone] Encounter Details Date Type Department Care Team (Late st Contact Info) Description 02/21/2022 2:00 PM EST Office [place] [address] Jennifer Stanley APRN [facility] DR [place] [address] History of arthroplasty of left ankle (Primary [...] Pulse 66 02/21/2022 2:05 PM EST Temperature - - Respiratory Rate - - Oxygen Saturation - - Inhaled Oxygen Concentration - - Weight - - Height - - Body Mass Index - - documented in this encounter Progress Notes * Jennifer Stanley, LIVESTOCK TRUCKER - 02/21/2022 2:00 PM EST Arthroplasty/Orthopaedic History: 1. LEFT ankle TAA. DOS: 11/21/2021. Dr. Mayo. Chief Complaint: ~ 3 months s/p LEFT ankle TAA HPI: Susan Whitney is a very pleasant 51 y.o. year-old female and is now 3 months status post leftankle arthroplasty. The patient has been doing relatively well. She does admit to feeling somewhat better than before surgery. Previously mentioned lymphedema resolving. No drenching night sweats. Nofevers, chills, nausea, vomiting, or symptoms of infection. Susan has been ambulating with [employer] and working with PT. I personally reviewed her outside physical therapy progress notes from [facility] provider. She is using NSAID's and Tylenol on a PRN basis for pain and does request a refill with the Ibuprofen today. Marisela is considering options for RTW and does request an updated RTW letter today. Patient's medications, allergies, past medical, surgical, social and family histories were reviewedand updated as appropriate. ROS: Denies: fever, chills, night sweats, nausea, or vomiting Physical Exam: Vitals: 02/21/22 1405 BP: 135/60 BP Location (NBP): Left arm Patient Position: Sitting BP Cuff Sizes: Large Adult (32-43 cm) Pulse: 66 There is no height or weight on file to calculate BMI. Well-appearing female in no acute distress. Alert and Oriented x 3 and answers all questions appropriately. LEFT ankle exam: Gait: Mild antalgia Shoe wear: Hoka sneakers The incisions are healed with no theresa-incisional erythema or evidence of infection. Mild puffiness about the lateral ankle with peroneals with no subluxation. Active DF: 5 degrees. Passive DF: 10 degrees. Active PF: 20 degrees. Passive PF: 25 degrees. Pain with inversion: none Pain with eversion: mild Peroneal strength in full maximal DF: 5/5 Posterior tibialis strength in full maximal DF: [...] of fracture, subsidence, loosening, or periprosthetic complication. Questionnaire Responses:No flowsheet data found. No flowsheet data found. ASSESSMENT/PLAN: Ms. Whitney is a 51 y.o. year old female 3 months status post left ankle TAA. Doingwell postoperatively. Continue weightbearing as tolerated and working on range of motion. We will see her back in 3 months for repeat examination. X-rays will be needed at that time in weight bearing. I have already ordered this as a future order in the computer. Patient may continue to follow the post op protocol and advance as tolerated. Length of recovery reviewed/post op expectations. Ok to consider modified duty at this time. RTW forms/letters completed. Ok to refill Ibuprofen PRN for pain. Marisela is comfortable with this approach. Pt agrees, questions solicited/answered, will return as scheduled and as needed for concerns or questions. Pt understands they may also call us prn for above. Recommend avoiding dental work 6 months post op. After 6 months: We discussed the appropriate precautions surrounding dental [...] including foot ulcers and urinary tract infections. TOTAL ANKLE ARTHROPLASTY REHAB PROTOCOL 0-2 weeks post op: -Non weight bearing in splint -Elevate and ice through splint 2-6 weeks post op: -Transition from cast to tall walker boot -Continue non weight bearing on operative extremity -Boot on at all times, including during sleep, except for removal 2-3 times a day for active dorsiflexion and plantarflexion of the ankle 6-10 weeks post op: -Begin WBAT in tall walker boot whenever weight bearing -Wean from crutches as tolerated after 8 weeks post op -Active and active assist dorsiflexion and plantarflexion ankle -Scar massage -Cycle on stationary bike with boot on -Begin pool therapy if able -Boot can come off for sleep 10-14 weeks post op: -Wean from boot when walking -Passive dorsiflexion and plantarflexion ankle -Gait training -Balance and proprioceptive exercises 14-16 weeks post op: -Begin unilateral stance exercises -Bilateral heel raises progressing to unilateral heel raises 16 weeks+ post op: -Return to full activity avoiding high impact activities (running, jumping, lifting heavy loads) All questions were answered. Signed: JENNIFER STANLEY APRN 02/17/2022 documented in this encounter Plan of Treatment Upcoming Encounters Date Type Department Care Team (Late st Contact Info) Description 12/04/2023 8:00 AM EDT Office [place] [address] Cyn Murphy, PT [facility] PHYSICAL MEDICINE & [place] [address] 12/04/2023 10:45 AM EDT Appointment XRay at [address] [place] [address] 12/04/2023 11:40 AM EDT Office [place] [address] Jennifer Stanley APRN [facility] DR [place] [address] documented as of this encounter Results * XR Ankle Min 3 views Left (Generic) (05/23/2022 12:26 PM EST) Anatomical Region Laterality Modality Ankle Left Digital Radiogra phy Impressions 05/23/2022 2:18 PM EST Unchanged tibiotalar arthroplasty. Thank you for letting us participate in the care of this patient. ??If you are a health care provider and have any questions regarding this report, please contact the number below. ??For patients who have questions please contact the health healthcare educator that requested your imaging first. ? Electronically signed by: MEGAN QUARLES MD, [facility] ([phone]), at 05/23/2022 2:18 PM Narrative 05/23/2022 2:18 PM EST EXAMINATION: XR ANKLE MIN 3 VIEWS LEFT (GENERIC) CLINICAL HISTORY: left ankle arthroplasty, x-ray out of boot in full weight bearing ? change from previous x-ray TECHNIQUE: 3 views LEFT ankle COMPARISON: Ankle radiographs 02/21/2022 FINDINGS: Status post tibiotalar arthroplasty. Hardware is intact in stable position. No periprosthetic fracture or lucency. Unchanged healed calcaneal osteotomy with intact bone brent. Pes planus. Plantar and Achilles enthesophytes. Diffuse soft tissue swelling. Unchanged metallic fragments above the head of the talus. Solid osseous fusion across the subtalar joint. Procedure Note Megan Quarles MD - 05/23/2022 EXAMINATION: XR ANKLE MIN 3 VIEWS LEFT (GENERIC) CLINICAL HISTORY: left ankle arthroplasty, x-ray out of boot in fullweight bearing ? change from previous x-ray TECHNIQUE: 3 views LEFT ankle COMPARISON: Ankle radiographs 02/21/2022 FINDINGS: Status post tibiotalar arthroplasty. Hardware is intact in stableposition. No periprosthetic fracture or lucency. Unchanged healed calcaneal osteotomywith intact bone brent. Pes planus. Plantar and Achilles enthesophytes.Diffuse soft tissue swelling. Unchanged metallic fragments above the head of thetalus. Solid osseous fusion across the subtalar joint. IMPRESSION Unchanged tibiotalar arthroplasty. Thank you for letting us participate in the care of this patient. If youare a health care provider and have any questions regarding this report,please contact the number below. For patients who have questions please contactthe health healthcare educator that requested your imaging first. Jennifer Stanley LIVESTOCK TRUCKER IMG DX ORDERABLES documented in this encounter Visit Diagnoses Diagnosis History of arthroplasty of left ankle- Primary History of arthroplasty of left ankle documented in this encounter Care Teams Railroad Wheels And Axle Inspector Relationship Specialty Start Date End Date Jennifer Suarez APRN [address] [place] [address] PCP - General Family Medicine 07/14/20 11/20/22 documented as of this encounter
--- OUTSIDE RECORDS SUMMARY | 2023-11-15 04:24 | XMS_ITS | Encounter Summary ---
Author Organization [facility] Address [facility] [place] [address] Care Team Providers Care Card Tender Name Role Phone Jennifer Suarez ROMINA Primary Care Provider [phone] Encounter Details Date Type Department Care Team (Latest Contact Info) Description 02/21/2022 Travel Social History Tobacco Use Types Packs/Day [...] AM EDT Office [place] [address] Cyn Murphy, PT [facility] PHYSICAL MEDICINE & [place] [address] 12/04/2023 10:45 AM EDT Appointment XRay at [address] [place] [address] 12/04/2023 11:40 AM EDT [place] [address] Jennifer Chambers APRN [facility] [place] [address] documented as of this encounter Visit Diagnoses Not on filedocumented in this encounter Care Teams Card Tender Relationship Specialty Start Date End Date Jennifer Suarez APRN [address] [place] [address] PCP - General Family Medicine 07/14/20 11/20/22 documented as of this encounter
--- OUTSIDE RECORDS SUMMARY | 2023-11-15 04:24 | XMS_ITS | Encounter Summary ---
Author Organization [facility] Address [facility] [place] [address] Care Team Providers Care Customer Support Representative Name Role Phone Ramiro Melo MD Primary Care Provider [phone] Encounter Details Date Type Department Care Team (Latest Contact Info) Description 11/21/2022 12:21 PM EDT - 11/21/2022 11:59 PM EDT Hospital Encounter XRay at [address] [place] [address] Jennifer Stanley, PSYCHOLOGY TEACHER [facility] [place] [address] History of arthroplasty of left ankle Discharge Disposition: Home Social [...] Capsule Take 2,000 Units by mouth daily. 9939-7471 units prescribed albuteroL 90 mcg/actuation HFA Aerosol Inhaler INHALE ONE TO TWO PUFFS BY MOUTH EVERY 4 TO 6 HOURS NEEDED 06/10/2020 multivitamin Capsule Take 1 capsule by mouth daily. documented as of this encounter Plan of Treatment Upcoming Encounters Date Type Department Care Team (Late st Contact Info) Description 12/04/2023 8:00 AM EDT Office [place] [address] Cyn Murphy, PT [facility] PHYSICAL MEDICINE & [place] [address] 12/04/2023 10:45 AM EDT Appointment XRay at [address] [place] [address] 12/04/2023 11:40 AM EDT Office [place] [address] Jennifer Stanley, PSYCHOLOGY TEACHER [facility] [place] [address] documented as of this encounter Procedures Procedure Name Priority Date/Time Associated Diagnosis Comments XR ANKLE MIN 3 VIEWS LEFT Routine 11/21/2022 12:39 PM EDT History of arthroplasty of left ankle documented [...] who have questions please contact the health child care attendant school that requested your imaging first. ? Electronically signed by: Gifty Cruz MD, [facility] ([phone]), at 11/21/2022 4:54 PM Narrative 11/21/2022 4:54 PM EDT EXAMINATION: XR [...] patients who have questions please contactthe health child care attendant school that requested your imaging first. Electronically signed by: Gifty Cruz MD, [facility]([phone]), at 11/21/2022 4:54 PM Jennifer Stanley PSYCHOLOGY TEACHER IMG DX ORDERABLES documented in this encounter Visit Diagnoses Diagnosis History of arthroplasty of left ankle documented in this encounter Care Teams Customer Support Representative Relationship Specialty Start Date End Date Ramiro Melo MD [address] [place] [address] PCP - General Family Medicine 11/21/22 documented as of this encounter
--- OUTSIDE RECORDS SUMMARY | 2023-11-15 04:24 | XMS_ITS | Encounter Summary ---
Author Organization [facility] [place] [address] Care Team Providers Care Head Bucker Name Role Phone Ramiro Melo MD Primary Care Provider [phone] Reason for Visit * Physical Therapy (Routine) - Closed Specialty Diagnoses / Procedures Referred By Cheri silverman Referred To Contact Physical Therapy Diagnoses Acquired left hindfoot varus Edema of left lower leg History of arthroplasty of left ankle Jennifer Stanley, ROMINA [facility] [place] [address] Marsha Murphy, PT [facility] PHYSICAL MEDICINE & [place] [address] Referral ID Status Reason Start Date Expiration Date V isits Requested Visits Authorized [id number] Closed Evaluate and Treat 10/23/2022 10/23/2023 30 30 Encounter Details Date Type Department Care Team (Late st Contact Info) Description 11/21/2022 9:00 AM EDT Office [place] [address] Marsha Murphy, PT [facility] PHYSICAL MEDICINE & [place] [address] Hereditary lymphedema Social History Tobacco Use Types Packs/Day [...] as of this encounter Miscellaneous Notes * Initial Evaluation - Marsha Murphy, PT - 11/21/2022 9:00 AM EDT Images from the original note were [...] on. Had bought compression knee highs at [employer] 12-15 mmhg, They wrinkle and cut in at the ankle andcut in behind the knee. Pt known to me from [place] 08/26/21. Since last seen pt has been [...] for primary subtalar osteoarthritis in 2016 in [place] followed byleft hindfoot varus s/p lateral closing [...] care : lives with [facility], in [place], [place]. 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 [...] tenderness with palpation noted. Non pitting edema. No hemosiderin staining. Small ankle crease developing Note: Picture(s) taken with verbal consent given by patient. 5) LE circumferences (cm) Right 08/26/21 Left 08/26/21 Right 11/21/22 Left 11/21/22 mtp s 24.3 24.0 24.5 24.3 Mid foot 23.5 24.0 24.0 23.5 Y 33.2 35.5 35.2 37.0 Ankle 29.0 30.2 29.5 31.0 Calf 49.8 51.5 51.0 52.0 D 46.6 49.2 48.0 51.0 Knee crease 46.2 47.5 Top patella +5 59.0 61.8 +12 69.0 69.5 +22 78.5 78.0 Floor-D length 41.0 A-D length 33.[address] mtp-heel 17.5 17.5 Hips- inches 56 Waist- inches 46 CLINICAL EVALUATION AND DIAGNOSIS: 51 yo female with gradual onset of mild swelling bilateral L/E in recent years but significant increase in left L/E after subtalar fusion 2017 with slow wound healing. Recent cellulitis. Likely bilateral lymphedema L>R. Possible some venous insufficieny by no venous venous U/S to confirm. Likely has lipedema component given easy bruising, pain and body habitus. Pt needs new replacement Compression wraps for calves and feet. I would also recommend Farrow Hybrid socks which can be more easily worn in a shoe (vs wraps which do not fit well in shoe and are better worn at home in slippers and /or at night). Farrow Strong -size larger Michaels Farrow Strong footpiece size S- michaels Farrow Hybrid socks (2 pairs) size standard, ADII 30-40 mmhg skin tone I also recommended a compression halle- OTS -like [employer] Short Halle 613, size 2X Pt at risk for cellulitis. Clinical presentation: Stable Evolving Unstable x Notes: Today Eval Pt education Looked at compression options and decided on : Farrow Strong -size larger Michaels Farrow Strong footpiece size S- michaels Farrow Hybrid socks (2 pairs) size standard, ADII 30-40 mmhg skin tone I also recommended a compression halle- OTS -like [employer] Short Halle 613, size 2X Recommended flat knit knee highs in the future like a [employer] or [employer]. Previously: Short stretch bandages applied to left L/E to knee. Pt and SO Ye instructed how to self bandage and video sent via [facility] Compression bandage precautions: pt advised to wear bandages 24 -48 hrs as tolerated. Advised patient take to remove bandages immediately if any increase in pain, increased swelling or discoloration. Clinical decision making of moderate complexity using standardized patient assessment instrument and measurable assessment of functional outcome. The patient's rehabilitation potential is good GOALS: Therapy Short Term Goals 6 weeks 1. Obtain well fitting compression garments. 2. independent in self care. Therapy Elevating Grader Operator Goals 8 weeks 1. maintain reduction in swelling. 2. Fit with compression stockings after surgery (after post op swelling reduced). Recommend flat knit, custom knee highs INITIAL TREATMENT INCLUDED: Eval, self care/home mangement PLAN: Frequency and duration: FU in March to assess progress and fit for flat knit knee highs Treatment: compression bandaging Exercise teaching self care garment fitting The plan has been discussed with the patient and she has agreed with it. Total Treatment time: 60 minutes Total Timed Code Treatment: 60 minutes eval and self care/home management x 1 MARSHA MURPHY, PT, CLT documented in this encounter Plan of Treatment Upcoming Encounters Date Type Department Care Team (Late st Contact Info) Description 12/04/2023 8:00 AM EDT Office [place] [address] Marsha Murphy, PT [facility] PHYSICAL MEDICINE & [place] [address] 12/04/2023 10:45 AM EDT Appointment XRay at [address] [place] [address] 12/04/2023 11:40 AM EDT Office [place] [address] Jennifer Stanley, DIGITIZER OPERATOR [facility] [place] [address] Scheduled Referrals Name Type Priority Associated Diagnoses Orde r Schedule Referral to Physical Therapy Outpatient Referral Routine Acquired left hindfoot varus s/p lateral closing wedge osteotomy 12/01/20, TAA 11/21/21 (Dr. Mayo) Edema of left lower leg History of arthroplasty of left ankle Ordered: 10/23/2022 documented as of this encounter Visit Diagnoses Diagnosis Hereditary lymphedema Hereditary edema of legs documented in this encounter Care Teams Head Bucker Relationship Specialty Start Date End Date Ramiro Melo MD [address] [place] [address] PCP - General Family Medicine 11/21/22 documented as of this encounter
--- OUTSIDE RECORDS SUMMARY | 2023-11-15 04:24 | XMS_ITS | Encounter Summary ---
Author Organization [facility] Address [facility] [place] [address] Care Team Providers Care District Resource Officer Name Role Phone Ramiro Melo MD Primary Care Provider [phone] Encounter Details Date Type Department Care Team (Latest Contact Info) Description 07/25/2023 Travel Social History Tobacco Use Types Packs/Day [...] AM EDT Office Visit [place] [address] Cyn Murphy, PT [facility] PHYSICAL MEDICINE & [place] [address] 12/04/2023 10:45 AM EDT Appointment XRay at [address] [place] [address] 12/04/2023 11:40 AM EDT Office Visit [place] [address] [facility] [place] [address] documented as of this encounter Visit Diagnoses Not on filedocumented in this encounter Care Teams District Resource Officer Relationship Specialty Start Date End Date Ramiro Melo MD [address] [place] [address] PCP - General Family Medicine 11/21/22 documented as of this encounter
--- OUTSIDE RECORDS SUMMARY | 2023-11-15 04:24 | XMS_ITS | Encounter Summary ---
Author Organization Count Includes [facility] Address [facility] [place] [address] Care Team Providers Care Stitchdowns Toe Former Name Role Phone Ramiro Melo MD Primary Care Provider [phone] Encounter Details Date Type Department Care Team (Latest Contact Info) Description 07/31/2023 Travel Social History Tobacco Use Types Packs/Day [...] AM EDT Office Visit [place] [address] Cyn Murphy, PT [facility] PHYSICAL MEDICINE & [place] [address] 12/04/2023 10:45 AM EDT Appointment XRay at [address] [place] [address] 12/04/2023 11:40 AM EDT Office [place] [address] Jennifer Stanley APRN [facility] [place] [address] documented as of this encounter Visit Diagnoses Not on filedocumented in this encounter Care Teams Stitchdowns Toe Former Relationship Specialty Start Date End Date Ramiro Melo MD [address] [place] [address] PCP - General Family Medicine 11/21/22 documented as of this encounter
--- OUTSIDE RECORDS SUMMARY | 2023-11-15 04:24 | XMS_ITS | Encounter Summary ---
Author Organization [facility] [place] [address] Care Team Providers Care Regional Director Name Role Phone Ramiro Melo MD Primary Care Provider [phone] Encounter Details Date Type Department Care Team (Late st Contact Info) Description 11/21/2022 Orders [place] [address] Jennifer Stanley, UNIX DEVELOPER [facility] DR ORTHOPAEDIC [place] [address] Lymphedema; Swelling of calf; Foot swelling Social History Tobacco Use Types Packs/Day Years [...] AM EDT Office [place] [address] Cyn Murphy, PT [facility] PHYSICAL MEDICINE & [place] [address] 12/04/2023 10:45 AM EDT Appointment XRay at [address] [place] [address] 12/04/2023 11:40 AM EDT Office Visit Orthopaedics at [facility] [place] [address] Jennifer Stanley, ROMINA [facility] [place] [address] documented as of this encounter Visit Diagnoses Diagnosis Lymphedema Other lymphedema Swelling of calf Swelling of limb Foot swelling Swelling of limb documented in this encounter Care Teams Regional Director Relationship Specialty Start Date End Date Ramiro Melo MD [address] [facility] 1 [place] [address] PCP - General Family Medicine 11/21/22 documented as of this encounter
--- OUTSIDE RECORDS SUMMARY | 2023-11-15 04:24 | XMS_ITS | Encounter Summary ---
Author Organization [facility] Address [facility] [place] [address] Care Team Providers Care Soda Clerk Name Role Phone Jennifer Suarez ROMINA Primary Care Provider [phone] Encounter Details Date Type Department Care Team (Latest Contact Info) Description 05/23/2022 12:06 PM EST - 05/23/2022 11:59 PM [facility] Encounter XRay at [address] [place] [address] Jennifer Stanley APRN [facility] [place] [address] History of arthroplasty of left ankle Discharge [...] Capsule Take 2,000 Units by mouth daily. 9480-8107 units prescribed albuteroL 90 mcg/actuation HFA Aerosol [...] AM EDT Office [place] [address] Cyn Murphy, PT [facility] PHYSICAL MEDICINE & [place] [address] 12/04/2023 10:45 AM EDT Appointment XRay at [address] [place] [address] 12/04/2023 11:40 AM EDT Office [place] [address] Jennifer Stanley, HOURLY SALES STAFF [facility] [place] [address] documented as of this encounter Procedures Procedure Name Priority Date/Time Associated Diagnosis Comments XR ANKLE MIN 3 VIEWS LEFT Routine 05/23/2022 12:26 PM EST History of arthroplasty of left ankle documented [...] who have questions please contact the health personal care aid that requested your imaging first. ? Narrative 05/23/2022 2:18 PM EST EXAMINATION: XR [...] patients who have questions please contactthe health personal care aid that requested your imaging first. Jennifer Stanley HOURLY SALES STAFF IMG DX ORDERABLES documented in this encounter Visit Diagnoses Diagnosis History of arthroplasty of left ankle documented in this encounter Care Teams Soda Clerk Relationship Specialty Start Date End Date Jennifer Suarez APRN [address] [place] [address] PCP - General Family Medicine 07/14/20 11/20/22 documented as of this encounter
--- OUTSIDE RECORDS SUMMARY | 2023-11-15 04:24 | XMS_ITS | Encounter Summary ---
Author Organization [facility] Address [facility] [place] [address] Care Team Providers Care Admissions Manager Rn Name Role Phone Ramiro Melo MD Primary Care Provider [phone] Encounter Details Date Type Department Care Team (Latest Contact Info) Description 04/15/2023 Travel Social History Tobacco Use Types Packs/Day [...] AM EDT Office Visit [place] [address] Cyn Murphy, PT [facility] PHYSICAL MEDICINE & [place] [address] 12/04/2023 10:45 AM EDT Appointment XRay at [address] [place] [address] 12/04/2023 11:40 AM EDT Office Visit [place] [address] Jennifer Stanley APRN [facility] [place] [address] documented as of this encounter Visit Diagnoses Not on filedocumented in this encounter Care Teams Admissions Manager Rn Relationship Specialty Start Date End Date Ramiro Melo MD [address] [place] [address] PCP - General Family Medicine 11/21/22 documented as of this encounter
--- OUTSIDE RECORDS SUMMARY | 2023-11-15 04:24 | XMS_ITS | Encounter Summary ---
Author Organization [facility] Address [facility] [place] [address] Care Team Providers Care Hair Spinning Machine Operator Name Role Phone Jennifer Suarez ROMINA Primary Care Provider [phone] Encounter Details Date Type Department Care Team (Latest Contact Info) Description 02/20/2022 Travel Social History Tobacco Use Types Packs/Day [...] AM EDT Office [place] [address] Cyn Murphy, PT [facility] PHYSICAL MEDICINE & [place] [address] 12/04/2023 10:45 AM EDT Appointment XRay at [address] [place] [address] 12/04/2023 11:40 AM EDT Office [place] [address] Jennifer Chambers APRN [facility] [place] [address] documented as of this encounter Visit Diagnoses Not on filedocumented in this encounter Care Teams Hair Spinning Machine Operator Relationship Specialty Start Date End Date Jennifer Suarez APRN [address] [place] [address] PCP - General Family Medicine 07/14/20 11/20/22 documented as of this encounter
--- OUTSIDE RECORDS SUMMARY | 2023-11-15 04:24 | XMS_ITS | Encounter Summary ---
Author Organization [facility] Address [facility] [place] [address] Care Team Providers Care Clinical Quality Assurance Associate Name Role Phone Jennifer Suarez ROMINA Primary Care Provider [phone] Encounter Details Date Type Department Care Team (Latest Contact Info) Description 11/17/2022 Travel Social History Tobacco Use Types Packs/Day [...] AM EDT Office [place] [address] Cyn Murphy, PT [facility] PHYSICAL MEDICINE & [place] [address] 12/04/2023 10:45 AM EDT Appointment XRay at [address] [place] [address] 12/04/2023 11:40 AM EDT Office [place] [address] Jennifer Chambers APRN [facility] [place] [address] documented as of this encounter Visit Diagnoses Not on filedocumented in this encounter Care Teams Clinical Quality Assurance Associate Relationship Specialty Start Date End Date Jennifer Suarez APRN [address] [place] [address] PCP - General Family Medicine 07/14/20 11/20/22 documented as of this encounter
--- OUTSIDE RECORDS SUMMARY | 2023-11-15 04:24 | XMS_ITS | Encounter Summary ---
[place] [address] Care Team Providers Care Jewelry Cutter Name Role Phone Ramiro Melo MD Primary Care Provider [phone] Reason for Visit * Reason Onset Date Comments Parking Placard 07/25/2023 Encounter Details Date Type Department Care Team (Late st Contact Info) Description 07/25/2023 [place] [address] Jennifer Stanley, MATERIAL EXPEDITOR [facility] [place] [address] Parking Placard Social History Tobacco Use Types Packs/Day Years [...] as of this encounter Miscellaneous Notes * Telephone Encounter - Marisa Cast - 08/10/2023 9:14 AM EDT [place] parking placard application signed by Marisela Stanley and mailed to patient to address on file. * Telephone Encounter - Marivel Cummings - 07/25/2023 3:17 PM EDT [place] PARKING PLACARD FILLED OUT AND PUT IN PROVIDER'S FOLDER FOR SIGNATURE. ONCE SIGNED WILL SEND TO PT ADDRESS ON FILE. documented in this encounter Plan of Treatment Upcoming Encounters Date Type Department Care Team (Late st Contact Info) Description 12/04/2023 8:00 AM EDT Office [place] [address] Cyn Murphy, PT [facility] PHYSICAL MEDICINE & [place] [address] 12/04/2023 10:45 AM EDT Appointment XRay at [address] [place] [address] 12/04/2023 11:40 AM EDT Office [place] [address] Jennifer Stanley, MATERIAL EXPEDITOR [facility] [place] [address] documented as of this encounter Visit Diagnoses Not on filedocumented in this encounter Care Teams Jewelry Cutter Relationship Specialty Start Date End Date Ramiro Melo MD [address] [facility] [facility] 1 [place] [address] PCP - General Family Medicine 11/21/22 documented as of this encounter
--- OUTSIDE RECORDS SUMMARY | 2023-11-15 04:24 | XMS_ITS | Encounter Summary ---
Author Organization [facility] [place] [address] Care Team Providers Care Hand Violin Maker Name Role Phone Ramiro Melo MD Primary Care Provider [phone] Encounter Details Date Type Department Care Team (Late st Contact Info) Description 11/22/2022 Orders [place] [address] Jennifer Stanley, RN TRANSITIONAL [facility] [place] [address] Lymphedema; Swelling of calf; Foot swelling Social [...] AM EDT Office [place] [address] Cyn Murphy, PT [facility] PHYSICAL MEDICINE & [place] [address] 12/04/2023 10:45 AM EDT Appointment XRay at [address] [place] [address] 12/04/2023 11:40 AM EDT Office Visit Orthopaedics [place] [address] Jennifer Stanley, ROMINA [facility] [place] [address] documented as of this encounter Visit Diagnoses Diagnosis Lymphedema Other lymphedema Swelling of calf Swelling of limb Foot swelling Swelling of limb documented in this encounter Care Teams Hand Violin Maker Relationship Specialty Start Date End Date Ramiro Melo MD [address] [facility] 1 [place] [address] PCP - General Family Medicine 11/21/22 documented as of this encounter
--- OUTSIDE RECORDS SUMMARY | 2023-11-15 04:24 | XMS_ITS | Encounter Summary ---
Author Organization [facility] Address [facility] [place] [address] Care Team Providers Care Online Advertising Analyst Name Role Phone Jennifer Suarez ROMINA Primary Care Provider [phone] Encounter Details Date Type Department Care Team (Latest Contact Info) Description 05/22/2022 Travel Social History Tobacco Use Types Packs/Day [...] AM EDT Office [place] [address] Cyn Murphy, PT [facility] PHYSICAL MEDICINE & [place] [address] 12/04/2023 10:45 AM EDT Appointment XRay at [address] [place] [address] 12/04/2023 11:40 AM EDT Office [place] [address] Jennifer Chambers APRN [facility] [place] [address] documented as of this encounter Visit Diagnoses Not on filedocumented in this encounter Care Teams Online Advertising Analyst Relationship Specialty Start Date End Date Jennifer Suarez APRN [address] [place] [address] PCP - General Family Medicine 07/14/20 11/20/22 documented as of this encounter
--- OUTSIDE RECORDS SUMMARY | 2023-11-15 04:24 | XMS_ITS | Encounter Summary ---
[place] [address] Care Team Providers Care Sorter Pricer Name Role Phone Ramiro Melo MD Primary Care Provider [phone] Reason for Visit * Reason Onset Date Comments Questions 07/05/2023 Encounter Details Date Type Department Care Team (Late st Contact Info) Description 07/05/2023 Tele[place] [address] Tio Mayo MD [facility] [place] [address] Questions Social History Tobacco Use Types Packs/Day Years [...] encounter Miscellaneous Notes * Telephone Encounter - Ester Simpson - 07/05/2023 3:34 PM EDT Name of person calling : Leydi Green [facility] Who is the provider: Gael Have you had surgery: Yes If yes : DOS: 11/21/2021 Surgeon: Gael Is there a new injury: No If yes, how did the new injury occur?: Best contact number: [phone] What is the question: Leydi is calling saying she keep trying to fax over a script for Flexi touch a neumatic compression device Script for this patient. She states she faxed to us on 07/03/2023. Sheis attempting to fax again. She needs Dr. Mayo to sign this for her.Confirmed correct fax. documented in this encounter Plan of Treatment Upcoming Encounters Date Type Department Care Team (Late st Contact Info) Description 12/04/2023 8:00 AM EDT Office Visit Physical Therapy at [place] [phone] Cyn Murphy, PT [facility] PHYSICAL MEDICINE & [place] [address] 12/04/2023 10:45 AM EDT Appointment XRay at [address] [place] [address] 12/04/2023 11:40 AM EDT Office Visit Orthopaedics at [place] [address] Jennifer Stanley, DYE ROOM HELPER [facility] [place] [address] documented as of this encounter Visit Diagnoses Not on filedocumented in this encounter Care Teams Sorter Pricer Relationship Specialty Start Date End Date Ramiro Melo MD [address] [place] [address] PCP - General Family Medicine 11/21/22 documented as of this encounter
--- OUTSIDE RECORDS SUMMARY | 2023-11-15 04:24 | XMS_ITS | Encounter Summary ---
Author Organization [facility] Address [facility] [place] [address] Care Team Providers Care Mental Retardation Nurse Name Role Phone Jennifer Suarez ROMINA Primary Care Provider [phone] Encounter Details Date Type Department Care Team (Latest Contact Info) Description 05/23/2022 Travel Social History Tobacco Use Types Packs/Day [...] AM EDT Office [place] [address] Cyn Murphy, PT [facility] PHYSICAL MEDICINE & [place] [address] 12/04/2023 10:45 AM EDT Appointment XRay at [address] [place] [address] 12/04/2023 11:40 AM EDT Office [place] [address] Jennifer Chambers APRN [facility] [place] [address] documented as of this encounter Visit Diagnoses Not on filedocumented in this encounter Care Teams Mental Retardation Nurse Relationship Specialty Start Date End Date Jennifer Suarez APRN [address] [place] [address] PCP - General Family Medicine 07/14/20 11/20/22 documented as of this encounter
--- OUTSIDE RECORDS SUMMARY | 2023-11-15 04:24 | XMS_ITS | Encounter Summary ---
Author Organization [facility] [address] Care Team Providers Care Instrument Person Name Role Phone Ramiro Melo MD Primary Care Provider [phone] Reason for Visit * Physical Therapy (Routine) - Closed Specialty Diagnoses / Procedures Referred By Cheri silverman Referred To Contact Physical Therapy Diagnoses Acquired left hindfoot varus Edema of left lower leg History of arthroplasty of left ankle Jennifer Stanley APRN [facility] [place] [address] Marsha Murphy, PT [facility] PHYSICAL MEDICINE & [place] [address] Referral ID Status Reason Start Date Expiration Date V isits Requested Visits Authorized [id number] Closed Evaluate and Treat 10/23/2022 10/23/2023 30 30 Encounter Details Date Type Department Care Team (Late st Contact Info) Description 07/31/2023 11:00 AM EDT Office [place] [address] Marsha Murphy, PT [facility] PHYSICAL MEDICINE & [place] [address] Secondary lymphedema; Hereditary lymphedema Social History Tobacco Use Types [...] Miscellaneous Notes * Treatment - Therapy - Marhsa Murphy, PT - 07/31/2023 11:00 AM EDT Images from the original note [...] on. Had bought compression knee highs at [employer] 12-15 mmhg, They wrinkle and cut in at the ankle andcut in behind the knee. Pt known to me from eval 08/26/21. Since last seen pt has been [...] for primary subtalar osteoarthritis in 2016 in [place] followed byleft hindfoot varus s/p lateral closing [...] care : lives with [facility], in [place], [place]. 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 [...] with verbal consent given by patient. S: Wears wraps most days. Foot and ankle wraps don't fit inside shoes so wears just the Farrow Hybrid AD1 with Farrow Strong wrap during the day when working. On her feel all day. Notices pocket ofswelling at ankle at the end of the day. Legs ache. Just heard she got approval for pump from [employer] (just heard this morning). Didn't wear her wraps yesterday (too hot) or this morning. Wears her Wearease capris some days but doesn't find they help much (didn't order Bioflect). O: 5) LE circumferences (cm) Right 08/26/21 Left 08/26/21 Right 11/21/22 Left 11/21/22 Right 04/17/23 Left 04/17/23 Right 07/31/23 Left 07/31/23 mtp s 24.3 24.0 24.5 24.3 24.8 24.3 25.0 24.0 Mid foot 23.5 24.0 24.0 23.5 24.0 23.5 24.2 23.8 Y 33.2 35.5 35.2 37.0 34.5 35.4 35.5 36.7 Ankle 29.0 30.2 29.5 31.0 29.0 30.0 28.6 31.0 Calf 49.8 51.5 51.0 52.0 48.5 50.5 50.5 52.0 D 46.6 49.2 48.0 51.0 46.0 48.0 47.5 49.0 Knee crease 46.2 47.5 Top patella +5 59.0 61.8 +12 69.0 69.5 +22 78.5 78.0 Floor-D length 41.0 A-D length 33.[address] mtp-heel 17.5 17.5 Hips- inches 56 Waist- inches 46 Notes: Today Measurements retaken Looked at Flat knit options again.Pt is going to think about it. She likes the ease of donning wraps, She did receive her Wearease Capris although she doesn't find they give much compression. Trial with Circaid anklet layered with Farrow Hybrid sock and calf wrap to see if we can get less swelling around foot and ankle. Pt wearing compression wraps she received in Dec 2022. Farrow Strong -size larger Michaels Farrow Strong footpiece size S- michaels Farrow Hybrid socks (2 pairs) size standard, AD1 20-30 mmhg skin tone compression halle- OTS -like Wearease Short Halle 613, size 2X Previously: I recommended the [employer] Sensation halle next time or she can order Bioflect halle on-line (more reasonably priced). Instruction in exercises to promote lymphatic flow -static gluts, adduction, quads and ankle pumps. Short stretch bandages applied to left L/E to knee. Pt and SO Ye instructed how to self bandage and video sent via [facility] Compression bandage precautions: pt advised to wear [...] Possible some venous insufficieny by no venous U/S to confirm. Stage 2 lymphedema. Likely has lipedema component given easy bruising, pain and body habitus. Pt has made some gains with compression garments but still with ongoing swelling bilateral L/E despite > 4 weeks of compression, exercise and self MLD Has tried RTW compression knee highs in the past but they crease and cut it at the ankle. I recommend flat knit custom knee highs 20-30 mmhg like a [employer] or [employer]. Circumferences slightly increased this am but likely due to not wearing wraps yesterday or this morning. Pt at risk for cellulitis. The patient's rehabilitation potential is good GOALS: Therapy Short Term Goals 6 weeks 1. Obtain well fitting compression garments. MET 2. independent in self care. 3. Evaluate for pump MET 07/31/23 Therapy Sugar Sampler Goals 8 weeks 1. maintain reduction in swelling. 2. Fit with compression stockings after surgery (after post op swelling reduced). Recommend flat knit, custom knee highs PLAN: Frequency and duration: FU in ~ 3 months following pump use daily, compression wraps for phase 1 (reduction) . Pt will also try wearing her foot wraps as much as possible leading up to next appointment for measuring for custom garments. Treatment: compression bandaging Exercise teaching self care [...] AM EDT Office [place] [address] Marsha Murphy PT [facility] PHYSICAL MEDICINE & [place] [address] 12/04/2023 10:45 AM EDT Appointment XRay at [address] [place] [address] 12/04/2023 11:40 AM EDT Office [place] [address] Jennifer Stanley APRN [facility] [place] [address] documented as of this encounter Visit Diagnoses Diagnosis Secondary lymphedema Other lymphedema Hereditary lymphedema Hereditary edema of legs documented in this encounter Care Teams Instrument Person Relationship Specialty Start Date End Date Ramiro Melo MD [address] [place] [address] PCP - General Family Medicine 11/21/22 documented as of this encounter
--- OUTSIDE RECORDS SUMMARY | 2023-11-15 04:25 | XMS_ITS | Encounter Summary ---
Author Organization [facility] [place] [address] Care Team Providers Care Miller Head Name Role Phone Jennifer Suarez APRN Primary Care Provider Reason for Referral * Physical Therapy (Routine) - Closed Specialty Diagnoses / Procedures Referred By Cheri silverman Referred To Contact Diagnoses Arthritis of left ankle Karey De PA [facility] [place] [address] Referral ID Status Reason Start Date Expiration Date V isits Requested Visits Authorized [id number] Closed Evaluate and Treat 12/06/2021 06/04/2022 12 12 Reason for Visit * Reason Comments Follow Up Surgery Encounter Details Date Type Department Care Team (Late st Contact Info) Description 12/06/2021 11:30 AM EDT Office Visit [place] [address] Karey De PA [facility] [place] [address] Arthritis of left ankle; Acquired left hindfoot varus s/p lateral closing wedge osteotomy 12/01/20, TAA 11/21/21 (Dr. Mayo); History of arthroplasty of left ankle Social History Tobacco Use Types Packs/Day Years [...] Sign Reading Time Taken Comments Blood Pressure 127/78 12/06/2021 11:26 AM EDT Pulse 87 12/06/2021 11:26 AM EDT Temperature - - Respiratory Rate - - Oxygen Saturation - - Inhaled Oxygen Concentration - - Weight 113.4 kg (250 lb) 12/06/2021 11:26 AM EDT Height 165.1 cm (5' 5) 12/06/2021 11:26 AM EDT Body Mass Index 41.6 12/06/2021 11:26 AM EDT documented in this encounter Patient Instructions * Patient Instructions* Karey De PA - 12/06/2021 11:30 AM EDT Please take 81 mg Aspirin twice per day to help prevent deep vein thrombosis or pulmonary embolism.End date is 12/21/21 documented in this encounter Progress Notes * Karey De PA - 12/06/2021 11:30 AM EDT PATIENT NAME: Susan Whitney AGE: 51 y.o. MR#: [id number] DATE OF VISIT: 12/06/2021 CHIEF COMPLAINT: 2 weeks Hospital check post 11/21/21 (Gael) LEFT total ankle arthroplasty HISTORY OF PRESENT ILLNESS: Ms. Whitney is a 51 y.o. female who comes into clinic today for evaluation of the LEFT ankle. Susan Whitney has been doing well since surgery. She has been compliant with NWB restrictions. The pt denies fever, chills, drenching night sweats, calf pain or tightness. She has been using the following for manageing pain: Tylenol and ibuprofen this morning but has not been taking anything for the last couple of days. Susan Whitney is taking 8 mg ASA once per day (needs to take twice per day) for DVT/PE prophylaxis. End date is 12/21/21 Past medical history: Patient Active Problem List Diagnosis Date Noted ??? History of arthroplasty of left ankle 11/21/2021 ??? Morbid obesity with BMI of 40.0-44.9, adult 11/21/2021 ??? Edema of left lower leg 07/28/2021 ??? 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 Mayo) 12/01/2020 ??? Arthritis of left ankle 10/13/2020 ??? Left foot pain 10/14/2015 Medications: ??? acetaminophen (Tylenol) 500 mg Tablet ??? aspirin EC 81 mg Tablet, Delayed Release (E.C.) ??? polyethylene glycoL (Miralax) 17 gram Powder in Packet ??? senna-docusate (Pericolace) 8.6-50 mg Tablet ??? ibuprofen (Advil) 600 mg Tablet ??? HYDROmorphone (Dilaudid) 2 mg Tablet ??? omeprazole (PriLOSEC OTC) 20 mg Tablet, Delayed Release (E.C.) ??? cholecalciferol, Vitamin D3, 50 mcg (2,000 unit) Capsule ??? gabapentin (Neurontin) 300 mg Capsule ??? albuteroL 90 mcg/actuation HFA Aerosol Inhaler ??? multivitamin Capsule ??? melatonin 1 mg Tablet Allergies: Allergies Allergen Reactions ??? Latex Other reaction(s): Skin Rash, itchy tongue, respiratory distress ??? Phenergan [Promethazine] Shortness Of Breath Weezing/ chest tightness ??? Promethazine Hcl Other reaction(s): chest tightness/SOB ??? Adhesive Rash Other reaction(s): Skin Rash ??? Codeine Low blood pressure ??? Hydrocodone Hives ??? Meperidine Hives ??? Nsaids (Non-Steroidal Anti-Inflammatory Drug) Other reaction(s): d/t vertical sleeve gastectomy Other reaction(s): d/t vertical sleeve gastectomy ??? Oxycodone Hives ??? Percocet [Oxycodone-Acetaminophen] Hives Respiratory distress, tongue swelling/itchiness ??? Simethicone Hives ??? Vicodin [Hydrocodone-Acetaminophen] Hives Respiratory distress, swollen/itchy tongue Social history: Social History Tobacco Use ??? Smoking status: Never Smoker ??? Smokeless tobacco: Never Used Substance Use Topics ??? Alcohol use: Yes Comment: Rarely drink. At most Maybe 1 shot or 1 wine cooler a month Review of systems: No chest pain or shortness of breath No fevers, night sweats or chills Vital signs: Visit Vitals BP 127/78 Pulse 87 Ht 165.1 cm (5' 5) Wt 113.4 kg (250 lb) BMI 41.60 kg/m?? Physical exam: Ms. Whitney is a 51 y.o. female who is alert and oriented. She is in no acute discomfort and is resting comfortably in the exam room. Anterior incision looks great No theresa-incisional erythema noted No bogginess or drainage to palpation about the incision Skin feels no warmer than surrounding tissue I am not able to part the skin with gentle palpation Calf is supple and non tender PT/DP pulses 2+. Superficial peroneal, deep peroneal, sural, saphenous, and tibial nerves intact totouch. . Imaging studies: XR images of the LEFT ankle were obtained showing ankle arthroplasty well placed. Assessment : 51 y.o. year-old female now roughly 2 weeks out post 11/21/21 ([facility]) LEFT total ankle arthroplasty PLAN: We had a long discussion regarding the nature of Susan Whitney's healing. Clinical findings: Incision looks great. Sutures were removed today in clinic. The pt handled this well. Steri strips need to remain in place for at least one week. Showers are ok, however please do not submerge the incision until the scabshave been replaced by scars. PT referral as follows: TOTAL ANKLE ARTHROPLASTY REHAB PROTOCOL 0-2 weeks [...] impact activities (running, jumping, lifting heavy loads) Continue with ASA for DVT/PE prophylaxis until is 12/21/21 This plan was discussed with the patient and they are in agreement. All of the patient's questions were answered. The patient understand to contact us if they have any other questions or concerns. FU: 4 weeks with repeat images of the LEFT ankle, ordered. Karey De PA-C The above dictation was made with voice recogonition software documented in this encounter Plan of Treatment Upcoming Encounters Date Type Department Care Team (Late st Contact Info) Description 12/04/2023 8:00 AM EDT Office Visit [place] [address] Cyn Murphy, PT [facility] PHYSICAL MEDICINE & [place] [address] 12/04/2023 10:45 AM EDT Appointment XRay at [address] [place] [address] 12/04/2023 11:40 AM EDT Office Visit [place] [address] Jennifer Stanley, PIPELINE INSPECTOR [facility] [place] [address] Scheduled Referrals Name Type Priority Associated Diagnoses Orde r Schedule Referral to Physical Therapy Outpatient Referral Routine Arthritis of left ankle Ordered: 12/06/2021 documented as of this encounter Results * XR Ankle Min 3 views Left (Generic) (01/06/2022 3:24 PM EDT) Anatomical Region Laterality Modality Ankle Left Digital Radiogra phy Impressions 01/06/2022 4:46 PM EDT Following total ankle arthroplasty, no acute complication is apparent. Thank you for letting us participate in the care of this patient. ??If you are a health care provider and have any questions regarding this report, please contact the number below. ??For patients who have questions please contact the health acute care assistant that requested your imaging first. ? Electronically signed by: Fili Downing MD, [facility] ([phone]), at 01/06/2022 4:46 PM Narrative 01/06/2022 4:46 PM EDT EXAMINATION: XR ANKLE MIN 3 VIEWS LEFT (GENERIC) CLINICAL HISTORY: 11/21/21 (Gael) LEFT total ankle arthroplasty TECHNIQUE: 3 views LEFT ankle COMPARISON: 12/06/2021 and 06/10/2021 FINDINGS: Previously seen plaster splint has been removed. Total ankle arthroplasty is in place. No fracture, dislocation or component displacement is apparent. The patient is also status post subtalar fusion and subsequent calcaneal osteotomy. Procedure Note Fili Downing MD - 01/06/2022 EXAMINATION: XR ANKLE MIN 3 VIEWS LEFT (GENERIC) CLINICAL HISTORY: 11/21/21 ([facility]ael) LEFT total ankle arthroplasty TECHNIQUE: 3 views LEFT ankle COMPARISON: 12/06/2021 and 06/10/2021 FINDINGS: Previously seen plaster splint has been removed. Total ankle arthroplasty is in place. No fracture, dislocation or component displacement is apparent. The patient is also status post subtalar fusion and subsequent calcaneal osteotomy. IMPRESSION Following total ankle arthroplasty, no acute complication is apparent. Thank you for letting us participate in the care of this patient. If youare a health care provider and have any questions regarding this report,please contact the number below. For patients who have questions please contactthe health acute care assistant that requested your imaging first. Electronically signed by: Fili Downing MD, [facility]([phone]), at 01/06/2022 4:46 PM Iris Jackson MD IMG DX ORDERABLES documented in this encounter Visit Diagnoses Diagnosis Arthritis of left ankle Unspecified arthropathy, ankle and foot Acquired left hindfoot varus s/p lateral closing wedge osteotomy 12/01/20, TAA 11/21/21 (Dr. Mayo) History of arthroplasty of left ankle Arthritis of left ankle Unspecified arthropathy, ankle and foot Acquired left hindfoot varus s/p lateral closing wedge osteotomy 12/01/20, TAA 11/21/21 (Dr. Mayo) History of arthroplasty of left ankle documented in this encounter Care Teams Miller Head Relationship Specialty Start Date End Date Jennifer Suarez, PIPELINE INSPECTOR [address] [place] [address] PCP - General Family Medicine 07/14/20 11/20/22 documented as of this encounter
--- OUTSIDE RECORDS SUMMARY | 2023-11-15 04:25 | XMS_ITS | Encounter Summary ---
Author Organization [facility] [place] [address] Care Team Providers Care Taxicab Starter Name Role Phone Jennifer Suarez APRN Primary Care Provider [phone] Encounter Details Date Type Department Care Team (Late st Contact Info) Description 08/29/2021 [place] [address] Karey De PA [facility] ORTHOPAEDIC [place] [address] Lymphedema of left lower extremity; Acquired left hindfoot varus Social History Tobacco Use Types Packs/Day Years Used Date Smoking Tobacco: Never Smokeless Tobacco: Never Alcohol Use Standard Drinks/Week Comments Yes 0 (1 standard drink = 0.6 oz pur e alcohol) rarely Sex and Gender Information Value Date Recorded Sex Assigned at Not on file Gender Identity Female 08/10/2020 7:17 AM EDT Sexual Orientation Straight 08/10/2020 7: 16 AM EDT documented as of this encounter Progress Notes * Karey De PA - 08/29/2021 9:07 AM EDT I received a request from Cyn Murphy PT for the pt to have compression wrap of the lower extremity as well as the foot as suggested by Dr. Mayo. As well she will need BILATERAL hybrid socks 20-30 Karey COULTER-C documented in this encounter Plan of Treatment Upcoming Encounters Date Type Department Care Team (Late st Contact Info) Description 12/04/2023 8:00 AM EDT Office [place] [address] Cyn Murphy, PT [facility] PHYSICAL MEDICINE & [place] [address] 12/04/2023 10:45 AM EDT Appointment XRay at [address] [place] [address] 12/04/2023 11:40 AM EDT Office [place] [address] Jennifer Stanley NEEDLE PROCESS [employer] SUPERVISOR [facility] ORTHOPAEDIC [place] [address] documented as of this encounter Visit Diagnoses Diagnosis Lymphedema of left lower extremity Acquired left hindfoot varus documented in this encounter Care Teams Taxicab Starter Relationship Specialty Start Date End Date Jennifer Suarez APRN [address] [place] [address] PCP - General Family Medicine 07/14/20 11/20/22 documented as of this encounter
--- OUTSIDE RECORDS SUMMARY | 2023-11-15 04:25 | XMS_ITS | Encounter Summary ---
Author Organization [facility] [place] [address] Care Team Providers Care Route Salesperson Name Role Phone Jennifer Suarez APRN Primary Care Provider Encounter Details Date Type Department Care Team (Latest Contact Info) Description 10/25/2021 2:30 PM EDT Clinical [place] [phone] Preop examination; Arthritis of left ankle; History of gastrectomy Social History Tobacco Use Types Packs/Day Years [...] as of this encounter Progress Notes * Humaira Ken RN - 10/25/2021 2:30 PM EDT PAT questionnaire reviewed with patient while in Pre Admission testing. Pre- operative instruction booklet reviewed. Patient verbalizes a good understanding of all information reviewed. Pt states having had covid 03/20/21 and not hospitalized. Pt has no current sx of covid now or in the last 3 months PLAN: Testing: Blood work drawn in [facility]. Special medication instructions: no vits suppliments DOS Procedure date: 11/21 Gael documented in this encounter Plan of Treatment Upcoming Encounters Date Type Department Care Team (Late st Contact Info) Description 12/04/2023 8:00 AM EDT Office [place] [address] Cyn Murphy, PT [facility] PHYSICAL MEDICINE & [place] [address] 12/04/2023 10:45 AM EDT Appointment XRay at [address] [place] [address] 12/04/2023 11:40 AM EDT Office [place] [address] Jennifer Stanley, [employer] [facility] [place] [address] documented as of this encounter Procedures Procedure Name Priority Date/Time Associated Diagnosis Comments HEMOGRAM Routine 10/25/2021 2:51 PM EDT Preop examination Arthritis of left ankle History of gastrectomy DIFFERENTIAL, AUTOMATED Routine 10/25/2021 2:51 PM EDT Preop examination Arthritis of left ankle History of gastrectomy HC CBC,PLT & AUTO DIFF Routine 10/25/2021 2:51 PM EDT Preop examination Arthritis of left ankle History of gastrectomy HC VENIPUNCTURE Routine 10/25/2021 2:51 PM EDT Preop examination Arthritis of left ankle History of gastrectomy documented in this encounter Results * Differential, Automated (10/25/2021 2:51 PM EDT) Neutrophil % 63.0 % [facility] Neutrophil Absolute 4.57 1.70 - 6.10 x10(3)/[facility] Lymph % 25.1 % [facility] Lymphocytes Abs 1.8 0.9 - 3.2 x10(3)/[facility] Monocyte % 9.2 % [facility] Monocyte Abs 0.7 0.3 - 0.9 x10(3)/[facility] Eos % 1.4 % [facility] Eosinophils Abs 0.1 0.0 - 0.4 x10(3)/[facility] Basophil % 0.7 % [facility] Baso Absolute 0.0 0.0 - 0.1 x10(3)/[facility] Immature Gran % 0.60 % [facility] Comment: Immature granulocytes(IG's)percentage and absolute count will include metamyelocytes, myelocytes, and promyelocytes. Blood smears from CBCs yielding IG's will be scanned manually for concordance. If this scan disagrees with the automated IG or if promyelocytes are noted, a manual differential will be performed. Immature Gran Absolute 0.04 0.00 - 0.04 x10(3)/[facility] Blood 10/25/2021 2:51 PM EDT 10/25/2021 3:07 PM EDT Narrative Resulting Agency Comment Spec In Lab Francisco Maria MD HEMATOLOGY ORDERA BLES [facility] [place] [address] * (ABNORMAL) Hemogram (10/25/2021 2:51 PM EDT) White Blood Cell 7.2 4.0 - 9.5 x10(3)/ L [facility] Red Blood Cell 4.75 4.00 - 5.21 x10(6)/ L [facility] Hemoglobin 12.4 11.7 - 15.5 g/dL [facility] Hematocrit 39.3 35.7 - 45.8 % [facility] Mean Cell Volume 82.7 82.6 - 94.4 fL [facility] Mean Cell Hemoglobin 26.1(L) 27.1 - 32.0 pg [facility] Mean Cell Hemoglobin Concentration 31.6(L) 31.7 - 35.0 g/dL [facility] Platelet 327 145 - 357 x10(3)/mc L [facility] RDW Standard Deviation 43.5 37.0 - 46.0 fL [facility] RDW coefficient of variation 14.3(H) 11.5 - 14.1 % [facility] Mean Platelet Volume 10.0 7.6 - 12.9 fL [facility] NRBC% auto 0.0 % [facility] NRBC Absolute 0.000 0.000 - 0.000 x10(3)/mc L [facility] Blood 10/25/2021 2:51 PM EDT 10/25/2021 3:07 PM EDT Narrative Resulting Agency Comment Spec In Lab Francisco Maria MD HEMATOLOGY ORDERA BLES [facility] [place] [address] * (ABNORMAL) Basic Metabolic Panel (non-fasting) (10/25/2021 2:51 PM EDT) Glucose 96 65 - 199 mg/dL [facility] Comment:Diabetes: >=200 mg/d L plus symptoms Blood Urea Nitrogen 18 8 - 18 mg/dL [facility] Creatinine 0.59(L) 0.70 - 1.20 mg/dL [facility] Sodium 141 135 - 145 mmol/L [facility] Potassium 4.1 3.5 - 5.0 mmol/L [facility] Comment: Please note: ??Patients with WBC >100,000 may have falsely elevated Potassium levels. ??For accurate Potassium quantification in these patients send serum separator tube (gold top) for subsequent determinations. ??Contact the Clinical Chemistry Laboratory if there are any questions. Chloride 104 98 - 107 mmol/L [facility] Carbon Dioxide 27 22 - 31 mmol/L [facility] Anion Gap 10 5 - 15 mmol/L [facility] Calcium 9.4 8.5 - 10.5 mg/dL [facility] Est Glomerular Filtration Rate 108 >=60 mL/min/1. 73 m?? [facility] Comment: This patient's estimated GFR was [...] Lab Francisco Maria MD CHEMISTRY ORDERAB LES [facility] [place] [address] documented in this encounter Visit Diagnoses Diagnosis Preop examination Preoperative examination, unspecified Arthritis of left ankle Unspecified arthropathy, ankle and foot History of gastrectomy Acquired absence of organ, stomach documented in this encounter Care Teams Route Salesperson Relationship Specialty Start Date End Date Jennifer Suarez APRN [address] [place] [address] PCP - General Family Medicine 07/14/20 11/20/22 documented as of this encounter
--- OUTSIDE RECORDS SUMMARY | 2023-11-15 04:25 | XMS_ITS | Encounter Summary ---
[place] [address] Care Team Providers Care General Maintenance Mechanic Name Role Phone Jennifer Suarez APRN Primary Care Provider [phone] Reason for Visit * Auth/Cert Specialty Diagnoses / Procedures Referred By Cheri silverman Referred To Contact Diagnoses Varus deformity, not elsewhere classified, left ankle Primary osteoarthritis, left ankle and foot Left ankle arthritis Procedures PRO ARTHROPLASTY ANKLE WITH IMPLANT TOTAL ANKLE ARTHROPLASTY (WRVU 14.42) Tio Covarrubias MD [facility] [place] [address] [facility] Referral ID Status Reason Start Date Expiration Date Visits Re quested Visits Authorized [id number] 1 1 Encounter Details Date Type Department Care Team (Latest Contact Info) Description 11/21/2021 5:47 AM EDT - 11/22/2021 3:30 PM EDT Hospital Encounter [place] [address] Tio Covarrubias MD [facility] [place] [address] Discharge Disposition: Home Social History Tobacco Use [...] Sign Reading Time Taken Comments Blood Pressure 123/63 11/22/2021 12:22 PM EDT Pulse 57 11/21/2021 11:00 AM EDT Temperature 36.4 ??C (97.5 ??F) 11/22/2021 12:22 PM E DT Respiratory Rate 16 11/22/2021 12:22 PM EDT Oxygen Saturation 98% 11/22/2021 12:46 PM EDT Inhaled Oxygen Concentration - - Weight - - Height - - Body Mass Index - - documented in this encounter Discharge Summaries * Kat Mo, DIRECTOR BROADCAST - 11/21/2021 4:41 PM EDT Discharge Summary Patient Name: Susan Whitney Patient Age: 51 y.o. Language: Italian Race: White Ethnicity: Not nor Admit date: 11/21/2021 Discharge date and time: 11/22/2021 Attending Physician: Tio Covarrubias MD Discharge Physician: Tio Covarrubias MD Follow-up Recommendations for Providers: See discharge instructions for additional details. Future Appointments Date Time Provider Department Center 12/06/2021 11:00 AM [facility] DX ROOM 2 Xray [facility] Rad 12/06/2021 11:30 AM Karey De PA [facility] ORTH 3C [facility] Inpatient Provider Contact Information: Tio Covarrubias MD Orthopedics: [phone] After hours and weekends, call [facility] Broker Associate, , and have the Orthopedic resident paged. Discharge Diagnoses (Hospital Problems) and Secondary Diagnoses (Chronic Problems): Active Hospital Problems Diagnosis ??? 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 Covarrubias) ??? History of arthroplasty of left ankle ??? Morbid obesity with BMI of 40.0-44.9, adult Resolved Hospital Problems No resolved problems to display. Active Non-Hospital Problems Diagnosis ??? Edema of left lower leg ??? Arthritis of left ankle ??? Left foot pain Operations/Major Procedures: 11/21/2021 Surgeon(s) and Role: * Tio Covarrubias MD - Primary * Kartik Duong MD - Resident Procedure(s): LEFT TOTAL ANKLE ARTHROPLASTY History of Presentation: Susan Whitney is a 51 y.o. female seen for proposed left total ankle arthroplasty The risks and benefits of surgery were discussed in detail. We discussed the risks of bleeding, infection, damage to nerves, vessels, tendons, and ligaments. We discussed the risks of fracture, hardware failure, wound breakdown, need for reoperation, pain, stiffness, and non-relief or exacerbation of symptoms. We discussed the risks of blood clots, pulmonary embolism, stroke, heart attack, and other cardiopulmonary and anesthetic complications up to and including the risk of . We discussedthe recovery from surgery, and the period of non weight bearing for an anticipated 6 weeks that would be required, as well as the 12 months until full recovery can be expected. Specific to this procedure, we discussed the risk of failure of implant, need for secondary procedure. Specific to the patient's comorbidities, we discussed the elevated risk of wound healing complications. We reviewed thenonoperative options for treatment. The patient voiced understanding of all we discussed and expressed a desire to move forward with surgery despite the risks of the procedure and the alternatives. The patient signed operative consent today. Hospital Course: The patient was admitted via Same Day Surgery for the above operation. DVT prophylaxis: ASA 81mg BID for 30 days . Patient began rehab on POD#1 w/ non- weight bearing of left leg remembering to use protection at all times for balance and protection. The patient was voiding spontaneously without diffi culty. The left lower short leg splint to remain in place until Ortho f/u, was inspected on POD#1 and was dry and intact. Pain was well controlled with oral pain medications. Patient did not have a bowel movement prior to discharge but was passing flatus and taking PO without difficulty. By POD#1 the patient was medically stable and was cleared for safe discharge to home. Vital Signs at Discharge: Weight: Wt Readings from Last 1 Encounters: 10/31/21 113.4 kg (250 lb) Height: Ht Readings from Last 1 Encounters: 10/31/21 165.1 cm (5' 5) HC: HC Readings from Last 1 Encounters: No data found for HC BMI: There is no height or weight on file to calculate BMI. Last value Range last 24 hrs Temperature Temp: 36.4 ??C (97.5 ??F) Temp: [36.4 ??C (97.5 ??F)-36.9 ??C (98.4 ??F)] Heart Rate Heart Rate: 57 Heart Rate: -- Blood Pressure BP: 123/63 BP: (116-138)/(59-65) Respiratory Rate Resp: 16 Resp: [14-18] SpO2 SpO2: 98 % SpO2: [96 %-98 %] Functional and Cognitive Status: Patient mobilizing with a walker, cognitively intact at baseline mental status at time of discharge. Important Lab Data: Last 3 wbc, hgb, hct plt Recent Labs 10/25/21 1451 WBC 7.2 HGB 12.4 HCT 39.3 PLATELET 327 Last 3 Lytes Recent Labs 10/25/21 1451 NA 141 K 4.1 CL 104 CO2 27 BUN 18 CREATININE 0.59* Last 3 LFTs No results for input(s): AST, ALT, ALKPHOS, BILITOT, BILIDIR in the last 7068 hours. Last Ca, Mg, Phos No results for input(s): CALCIUM, PHOS, MAGNESIUM in the last 168 hours. Last 3 HgbA1C No results for input(s): HA1C in the last 7068 hours. Last CRP, SEDRATENo results for input(s): CRP, SEDRATE in the last 7068 hours. Studies: XR Fluoro No Rad <1Hr - OR Use Result Date: 11/21/2021 This exam is auto-finalizing. No interpretation was done. SCAN DOC: TELEMETRY STRIPS Result Date: 11/21/2021 Ordered by an unspecified provider. SCAN DOC: TELEMETRY STRIPS Result Date: 11/21/2021 Ordered by an unspecified provider. Pending Studies and Lab Data at Discharge: None Transfusions: No Discharge Conditions/Prognosis: Stable, awake, and alert. Mobilizing as noted above, pain controlled on oral medications. Discharge to: Home. Updated Allergies/ADRs: Allergies Allergen Reactions ??? Latex Other reaction(s): [...] Vicodin [Hydrocodone-Acetaminophen] Hives Respiratory distress, swollen/itchy tongue Immunizations Given this Hospitalization: Immunization History Administered Date(s) Administered ??? Merna Covid-19 Vaccine 01/07/2021 ??? Tdap Vaccine 05/09/2016 Discharge Medications: Your Medications New Medications Dose Details aspirin EC 81 mg Tbec Take 1 tablet by mouth 2 times daily. Take with food for 30 days after surgery. Last day = 12/21/21. 81 mg Refills: 0 HYDROmorphone 2 mg Tab Commonly known as: Dilaudid Take 1-2 tablets by mouth every 4 hours as needed for Pain. 2-4 mg Quantity: 42 tablet Refills: 0 omeprazole 20 mg Tbec Commonly known as: PriLOSEC OTC Take 1 tablet by mouth daily. Daily while taking ibuprofen 20 mg Quantity: 30 tablet Refills: 0 polyethylene glycoL 17 gram Pwpk Commonly known as: Miralax Take 17 g by mouth 2 times daily. 17 g Refills: 0 senna-docusate 8.6-50 mg Tab Commonly known as: Pericolace Take 2 tablets by mouth 2 times daily. 2 tablet Refills: 0 Continued medications with new dosing Dose Details acetaminophen 500 mg Tab Commonly known as: Tylenol Take 2 tablets by mouth every 8 hours. Continue the Tylenol around the clock for 10 days after surgery, (12/01/21). Then may take if needed per package insert. Do not take more than 3,000 mg of Tylenolin 24 hours. What changed: ?? how much to take ?? when to take this ?? reasons to take this ?? additional instructions 1,000 mg Refills: 0 ibuprofen 600 mg Tab Commonly known as: Advil Take 1 tablet by mouth every 6 hours as needed for Pain (Alternate with Tylenol for acute post-op surgical pain). What changed: reasons to take this 600 mg Quantity: 45 tablet Refills: 0 Continued medications, unchanged Dose Details albuteroL 90 mcg/actuation Hfaa INHALE ONE TO TWO PUFFS BY MOUTH EVERY 4 TO 6 HOURS NEEDED Refills: 0 cholecalciferol (Vitamin D3) 50 mcg (2,000 unit) Cap Take 2,000 Units by mouth daily. 0522-8626 units prescribed 2,000 Units Refills: 0 gabapentin 300 mg Cap Commonly known as: Neurontin Take by mouth as needed. Refills: 0 melatonin 1 mg Tab Take by mouth nightly as needed. Refills: 0 multivitamin Cap Take 1 capsule by mouth daily. 1 capsule Refills: 0 Smoking Status at Discharge: Social History Tobacco Use Smoking Status Never Smoker Smokeless Tobacco Never Used Instructions Given to Patient at Discharge: Patient Instructions Orthopaedic Surgery Discharge Instructions Activity: ??? Your weight-bearing status is - non-weight bearing of the left lower extremity. ??? Remember to use a walker or crutches as needed for balance and protection. Anticoagulation: Aspirin - You have been discharged on enteric-coated Aspirin 81 mg by mouth twice a day. Continue this for 30 days after surgery. Take this medication with food or large amounts (240 mL) of water or milk to minimize GI irritation. Last day = 12/21/21. Diet: Resume your usual diet but increase your intake of fluids and fiber while you are on narcoticpain meds to prevent constipation. Driving: None until you are cleared to do so by your Orthopedic surgeon. You should not drive whileyou are on narcotic pain meds as they can affect your judgment and reaction time. Call your surgeonwith any questions/concerns. Medications: ?? Some swelling is expected after surgery. Ice and elevation are the best remedies to reduce swelling and pain. Keep your extremity properly elevated above the level of the heart i.e., fingers abovepalm, palm above the wrist, wrist above the elbow. Use pillows to increase elevation. ?? Intermittently apply ice to the outside of the dressing for 20 minutes 6-8 times a day. You willwant to ice and elevate for 5-7 days after surgery or as long as it hurts. ?? We recommend 1,000 mg of Tylenol (acetaminophen) every 6-8 hours for the next 7-10 days. You maytake up to but should not exceed 4,000 mg daily. This recommendation is in the setting of a healthyliver. If you are concerned about the health of your liver or have other questions, please discuss with your primary care physician. ?? We also recommend 600 mg of Motrin (ibuprofen) every 6-8 hours for the next 7-10 days. You may take up to but should not exceed 2,400 mg daily. This recommendation is in the setting of healthy kidneys and gastrointestinal organs. If you are concerned about the health of your kidneys or GI organs, please discuss with your primary care physician. ?? Administration of Tylenol (acetaminophen) and Motrin (ibuprofen) should be staggered for maximumeffect. ?? You have been prescribed a proton pump inhibitor, Prilosec to help reduce gastric upset while taking ibuprofen. ?? You have been discharged on a short acting narcotic. You will be on this medication for a limited period of time only. Take the smallest dose possible to control your pain. As your pain improves, take smaller and less frequent doses. ?? The narcotic pain medication you are on may cause constipation, so increase your intake of fluids and fiber while taking this medication. You may also take stool softeners such as Mirilax and Pericolace. ?? If you need a renewal on your narcotic pain medication, you need to give the Orthopaedic clinic adequate time to process your request. This can take up to three business days, so plan accordingly. Ice and elevation ?? Some swelling is expected after surgery. Ice and elevation are the best remedies to reduce swelling and pain. Keep your operative extremity properly elevated above the level of the heart You may use pillows to increase elevation. ?? Intermittently apply ice to the outside of the dressing for 20 minutes 6-8 times a day. You willwant to ice and elevate for 5-7 days after surgery or as long as it hurts. Dressing / Wound: ?? A plaster splint has been applied. Please keep it dry and cover with a bag for showers. If the splint becomes wet, you must call the office or present to your local Emergency Department for removal. ?? You have sutures in place that will be removed at your follow-up Ortho appointment on 12[facility]06/21. [facility] Remember that ICE and elevation are very important after surgery to help decrease swelling and control pain. Use ICE for 20-30 minutes at a time and keep your leg elevated as much as possible. Call your doctor ([phone]) if you develop: 1. Fever greater than 100.5 2. Severe nausea or vomiting 3. Increasing pain that is not controlled by pain medications 4. Increasing redness, swelling, or drainage from incisions 5. Change in sensation FOLLOW-UP APPOINTMENTS: 1. You will have follow-up appointments at [facility] as indicated below in Future Appointment and Orders. 2. You will need to have x-rays prior to your follow-up appointment listed below. Please come to Radiology, desk , 1 hour BEFORE that appointment for these x-rays. Future Appointments Date Time Provider Department Center 12/06/2021 11:00 AM [facility] DX ROOM 2 Xray [facility] Rad 12/06/2021 11:30 AM Karey De PA [facility] ORTH 3C [facility] If you have questions or concerns: Sunday through Sunday, 8 AM - 5 PM, please call Dr. Tio Covarrubias MD's office at . If it is after 5 PM, the weekend, or holidays, please call and ask to speak with theOrthopedic resident on-call. General Instructions None Future Appointments and Orders Future Appointments and Orders Future Appointments Provider Department Dept Phone 12/06/2021 11:00 AM [facility] DX ROOM 2 XRay at [facility] Arrive at: [facility] [phone] Please go to [facility] ([facility]). 12/06/2021 11:30 AM Karey De PA Orthopaedics at [facility] Arrive at: [employer] [phone] Primary Care Provider: Jennifer Suarez APRN [phone] Discharge References/Attachments None documented in this encounter Discharge Instructions * Patient Instructions* Kat Mo, ROMINA - 11/21/2021 6:59 AM EDT Orthopaedic Surgery Discharge Instructions Activity: Your weight-bearing status is - non-weight bearing of the left lower extremity. Remember to use a walker or crutches as needed for balance and protection. Anticoagulation: Aspirin - You have been discharged on enteric-coated Aspirin 81 mg by mouth twice a day. Continue this for 30 days after surgery. Take this medication with food or large amounts (240 mL) of water or milk to minimize GI irritation. Last day = 12/21/21. Diet: Resume your usual diet but increase your intake of fluids and fiber while you are on narcoticpain meds to prevent constipation. Driving: None until you are cleared to do so by your Orthopedic surgeon. You should not drive whileyou are on narcotic pain meds as they can affect your judgment and reaction time. Call your surgeonwith any questions/concerns. Medications: Some swelling is expected after surgery. Ice and elevation are the best remedies to reduce swellingand pain. Keep your extremity properly elevated above the level of the heart i.e., fingers above palm, palm above the wrist, wrist above the elbow. Use pillows to increase elevation. Intermittently apply ice to the outside of the dressing for 20 minutes 6-8 times a day. You will want to ice and elevate for 5-7 days after surgery or as long as it hurts. We recommend 1,000 mg of Tylenol (acetaminophen) every 6-8 hours for the next 7- 10 days. You may take up to but should not exceed 4,000 mg daily. This recommendation is in the setting of a healthy liver. If you are concerned about the health of your liver or have other questions, please discuss with your primary care physician. We also recommend 600 mg of Motrin (ibuprofen) every 6-8 hours for the next 7-10 days. You may takeup to but should not exceed 2,400 mg daily. This recommendation is in the setting of healthy kidneys and gastrointestinal organs. If you are concerned about the health of your kidneys or GI organs, please discuss with your primary care physician. Administration of Tylenol (acetaminophen) and Motrin (ibuprofen) should be staggered for maximum effect. You have been prescribed a proton pump inhibitor, Prilosec to help reduce gastric upset while taking ibuprofen. You have been discharged on a short acting narcotic. You will be on this medication for a limited period of time only. Take the smallest dose possible to control your pain. As your pain improves, take smaller and less frequent doses. The narcotic pain medication you are on may cause constipation, so increase your intake of fluids and fiber while taking this medication. You may also take stool softeners such as Mirilax and Pericolace. If you need a renewal on your narcotic pain medication, you need to give the Orthopaedic clinic adequate time to process your request. This can take up to three business days, so plan accordingly. Ice and elevation Some swelling is expected after surgery. Ice and elevation are the best remedies to reduce swellingand pain. Keep your operative extremity properly elevated above the level of the heart You may use pillows to increase elevation. Intermittently apply ice to the outside of the dressing for 20 minutes 6-8 times a day. You will want to ice and elevate for 5-7 days after surgery or as long as it hurts. Dressing / Wound: A plaster splint has been applied. Please keep it dry and cover with a bag for showers. If the splint becomes wet, you must call the office or present to your local Emergency Department for removal. You have sutures in place that will be removed at your follow-up Ortho appointment on 12/06/21. Misc: Remember that ICE and elevation are very important after surgery to help decrease swelling and control pain. Use ICE for 20-30 minutes at a time and keep your leg elevated as much as possible. Call your doctor ([phone]) if you develop: Fever greater than 100.5 Severe nausea or vomiting Increasing pain that is not controlled by pain medications Increasing redness, swelling, or drainage from incisions Change in sensation FOLLOW-UP APPOINTMENTS: 1. You will have follow-up appointments at [facility] as indicated below in Future Appointment and Orders. 2. You will need to have x-rays prior to your follow-up appointment listed below. Please come to Radiology, desk 3T, 1 hour BEFORE that appointment for these x-rays. Future Appointments Date Time Provider Department Center 12/06/2021 11:00 AM [facility] DX ROOM 2 MH Xray [facility] Rad 12/06/2021 11:30 AM Karey De, PA [facility] ORTH 3C [facility] If you have questions or concerns: Sunday through Sunday, 8 AM - 5 PM, please call Dr. Tio Covarrubias MD's office at . If it is after 5 PM, the weekend, or holidays, please call and ask to speak with theOrthopedic resident on-call. documented in this encounter Medications at Time of Discharge Medication Sig Dispensed Refills Start Date End Date acetaminophen (Tylenol) 500 mg Tablet Take 2 tablets by mouth every 8 hours. Continue the Tylenol around the clock for 10 days after surgery, (12/01/21). Then may take if needed per package insert. Do not take more than 3,000 mg of Tylenol in 24 hours. 11/22/2021 cholecalciferol, Vitamin D3, 50 mcg (2,000 unit) Capsule Take 2,000 Units by mouth daily. 2633-4472 units prescribed albuteroL 90 mcg/actuation HFA Aerosol Inhaler INHALE ONE TO TWO PUFFS BY MOUTH EVERY 4 TO 6 HOURS NEEDED 06/10/2020 multivitamin Capsule Take 1 capsule by mouth daily. aspirin EC 81 mg Tablet, Delayed Release (E.C.) Take 1 tablet by mouth 2 times daily. Take with food for 30 days after surgery. Last day = 12/21/21. 11/22/2021 11/21/2022 polyethylene glycoL (Miralax) 17 gram Powder in Packet Take 17 g by mouth 2 times daily. 11/22/2021 12/06/2021 senna-docusate (Pericolace) 8.6-50 mg Tablet Take 2 tablets by mouth 2 times daily. 11/22/2021 01/06/2022 ibuprofen (Advil) 600 mg Tablet Take 1 tablet by mouth every 6 hours as needed for Pain (Alternate with Tylenol for acute post-op surgical pain). 45 tablet 11/22/2021 02/21/2022 HYDROmorphone (Dilaudid) 2 mg Tablet Take 1-2 tablets by mouth every 4 hours as needed for Pain. 42 tablet 11/22/2021 01/06/2022 omeprazole (PriLOSEC OTC) 20 mg Tablet, Delayed Release (E.C.) Take 1 tablet by mouth daily. Daily while taking ibuprofen 30 tablet 11/22/2021 01/06/2022 gabapentin (Neurontin) 300 mg Capsule Take by mouth as needed. 12/25/2019 11/21/2022 melatonin 1 mg Tablet Take by mouth nightly as needed. 12/06/2021 documented as of this encounter Progress Notes * Rowdy Hannah MD - 11/22/2021 3:30 PM EDT Regional Anesthesia Post-Procedure Assessment Spoke to patient via telephone. Peripheral nerve block resolved appropriately. No residual weakness/numbness/decreased sensation. No sign of infection at injection site. Tolerating POs appropriately.Patient very satisfied with nerve block. Rowdy Hannah MD PGY-4 Anesthesiology Regional Block Team #[id number] * Anibal Miles RN - 11/22/2021 3:29 PM EDT [facility] Short Stay Unit Discharge Note All relevant discharge milestones have been met by the patent. After Visit Summary and discharge teaching reviewed with the patient and a family member. IV access has been discontinued. All personal belongings have been returned to the patient/family upon their departure from the unit. Patient has been discharged to home The patient has been discharged without VNA services. * Prasanna Perez, TERRIE - 11/22/2021 12:48 PM EDT OCCUPATIONAL THERAPY 11/22/21 1246 Evaluation & Treatment Document Type contact Total Minutes, Occupational Therapy 0 Treatment Date 11/22/21 Comment, Session Not Performed Order received and chart reviewed. Following conversations w/ the patient, her , and evaluating Physical Therapist; she has no OT needs during this visit. Pt hashx of [facility], has all DME needed, understanding of modified techniques performing ADLs/mobility, and demonstrated the ability to safely transfer independently. Anticipate pt will d/c home with her 's assistance once medically appropriate. Vital Signs Heart Rate from SpO2 71 bpm SpO2 98 % Prasanna Perez, OT Pager: [phone] * Nika Lares, PT - 11/22/2021 12:14 PM EDT Physical Therapy Evaluation Patient profile: Susan Whitney is a 51 y.o. right handed female admitted on 11/21/[address] Tio Covarrubias MD for left total ankle arthroplasty. Pt is s/p acquired left hindfoot varus s/p lateral closing wedge osteotomy 12/01/20. Patient with the following active problems: Past Medical History: Diagnosis Date ??? Allergy ??? Arthritis of left ankle 10/13/2020 ??? Asthma ??? 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 Complex regional pain syndrome i of right upper limb ??? Deafness in left ear ??? Irregular heart beat Svt with pvc???s and pac???s as noted on holter 01/2020 at [facility] , mild and occasional ??? Post-operative nausea and vomiting Last 2 uneventful, most recent here at [facility], see surigical notes from 12/01/20 Past Surgical History: Procedure Laterality Date ??? SECTION ??? ECTOPIC SURGERY x 2 ??? ORTHOPEDIC SURGERY ??? PRO ARTHROPLASTY ANKLE WITH IMPLANT Left 11/21/2021 TOTAL ANKLE ARTHROPLASTY (WRVU 14.42) performed by Tio Covarrubias MD at [facility] MAIN OR ??? PRO OSTEOTOMY HEEL BONE Left 12/01/2020 OSTEOTOMY, CALCANEUS (WRVU 9.73) performed by Tio Covarrubias MD at [facility] MAIN OR ??? PRO REMOVAL DEEP IMPLANT Left 12/01/2020 REMOVAL OF IMPLANT, DEEP, FOOT (WRVU 5.96) performed by Tio Covarrubias MD at [facility] MAIN OR ??? TUBAL LIGATION ??? XR FLUORO INJECTION DRAINAGE JOINT MD LEFT Left 09/06/2020 XR Fluoro Guided Joint Injection Medium Left 09/06/2020 Janell Shah, DIRECTOR BROADCAST [facility] RAD XRAY Active Non-Hospital Problems Diagnosis ??? Edema of left lower leg ??? Arthritis of left ankle ??? 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 Equipment at home: bathroom equipment as above, FWW, axillary crutches, iWalk knee device, knee scooter Fall history: denies falls Social Supports Available: able to help full-time for the next week (as he has time off), in good health Precautions/Special Considerations: Full code, fall risk, NWB LLE (cleared to use I-walker and/or kneeling scooter), regular diet, O2 >92%, nerve block LLE remains effective below knee. Lines: PIV, oximeter Mobility and Positioning Recommendations: ?? Pt. to utilize CGA to supervision and FWW, iWalk, and/or crutches for ambulation and transfers with nursing. NWB LLE. ?? Please encourage up to chair for meal times as able. ?? Pt encouraged to ambulate frequently with staff, getting into the bathroom for toileting and walking out in the [place] >/= 3 times daily as able. Subjective: ???I'm in good shape for the shape I'm in.?? Objective: Pt seen for evaluation today and presented as follows. Pt seen in two parts: first part in room, second part pt brought to rehab gym for stairs and gait (once nerve block more worn off). See times below. Pain: c/o LLE feeling heavy, no pain. Vital Signs: Supine HOB 30deg at rest: SpO2 98%, BP 134/64 (83)mmHg, HR 80s bpm Mental Status: alert, oriented to person, place, and time Vision: wears bifocals Skin: LLE wrapped in rodríguez-bandage over posterior splint below knee level. Musculoskeletal: ROM: BUEs grossly WFL; RLE able to sit in long sit and bring R foot towards trunk to don sock; LLE able to bend knee to at least 90deg for use of iwalk. Full L knee ext in supine. 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 Paresthesias developing as LLE nerve block worn off. Bed Mobility: (2x) Supine to Sit: modified independent to L side of bed Sit to Supine: modified independent Rolling/Repositioning: modified independent Transfers: bed, commode, WC Sit <> Stand: contact guard assist using standard walker, gait belt, CGA Pt transferred off commode with assist from and back to bed Gait: ~50' with 2-point gait pattern with B axillary crutches and iWalk on LLE with WB through L knee, CGA to supervision with gait belt; ~5' with FWW and iWalk. 10' x 2 with FWW, NWB LLE, cga. Needed min/mod assist to don the I walk on LLE, pt holding FWW with at least one hand. Stairs: Number of steps: 4 Railing Present: L Level of Assistance: CGA Assistive Device: axillary crutch R, iWalk on LLE Mechanics:step-to pattern on ascent-leading with RLE. Descended sideways down 2 steps with BUE support on single rail, stepping down with LLE in iWalk, then descended sideways down 2 steps with RUE support on rail, crutch in L, with iWalk stepping down first Balance: Fair to fair+ standing balance on R leg to don/doff iWalk with single UE support on FWW; Education: patient has been educated on Bed mobility, Transfers, Assistive device/technique, Stairs, Positioning, Safety , Precautions/protocol, Gait , Role of therapy, Balance and Discharge planningand verbalizes understanding. Pt encouraged to perform L knee and Hip AROM exercises in sitting andsupine to encourage ROM, strengthening and edema reduction (SLR, hip ab/ad, LAQs) Pt left supine in bed, with call seth in reach and with family at the bedside with LLE elevated on foam block wedge pillow, following visit. Patient status, treatment, and mobility recommendations discussed with nursing. Spoke with MARYLIN Pearce about discharge recommendations. Assessment: Susan Whitney was seen today for physical therapy evaluation.Pt is HD2 POD1 L TAA. Pt is functionally limited and benefited from physical therapy consultation given the following: post-op pain, chronic musculoskeletal pain, extensive surgical history, weightbearing restrictions, obesity, altered skin integrity, sensory/ROM/strength deficits, decreased endurance, with resultant limitations in transfers, gait, stairs, and balance. Pt was pleasant and tolerated today's session. Given her history with multiple LE surgeries, pt was fluent with movement and use of own assistive devices, such as axillary crutches, iWalk, and FWW. She was able to maintain WB precautions throughout today's visit. While pain was not a limiting factor today, pt may require more assistance as the nerve block wears and pain increases. Despite the above stated deficits, feel she will progress well at home with support of , assistive devices, and her online rehab program ([employer]). Based on current presentation, recommend patient discharge home when medically appropriate. No further inpatient rehab needs. No DME needs. Pt is cleared to discharge home. Discharge Recommendations: Based on the current findings, Anticipated Discharge Disposition (PT): home (with support of family) when medically ready for hospital discharge. Consult Recommendations: No other consults recommended at this time. Equipment Needs: No equipment necessary. Pt has all necessary equipment at home. 1. Physical Therapy Goals: All goals for patient education, bed mobility, transfers, gait, assistive device usage, safety, and precautions met 11/22/21. Plan: Therapy Frequency (PT): evaluation only for therapy including balance training, bed mobility training, gait training, patient/family education, range of motion, stair training, strengthening, transfer training and safety and precautions. Patient/family understand and agree with plan as statedabove. 2017 PT Evaluation Code Rationale: ?? Diagnosis & Pertinent Co-Morbidities, personal factors, and present illness affecting Plan of Care: (see above); Additional personal factors or co- morbidities that impact plan: ?? Total # of Factors: 0 1-2 3+ x ?? Examination of body system impairments, functional limitations and behaviors, and/or participation restrictions. Addressing 1-2 elements Addressing 3 + elements x Addressing 4 + elements ?? Clinical presentation: See assessment above. Stable/Uncomplicated Evolving/Fluctuating Symptoms Unstable/Unpredictable x ?? Clinical decision making of moderate complexity based on pt's functional performance as outlinedin this evaluation. Time IN / OUT: First session:; Second Session: 9853-2439 Total Minutes, Physical Therapy: 44 Billing Code: mod ev, TEF Collette Nuñez , [facility] Physical Therapy Inpatient Rehabilitation Department Patient status, treatment interventions, and goals discussed with student. I am in agreement with all details and associated flowsheet rows as documented and was present for all aspects of the patient treatment session. NIKA LARES, PT Pager # [phone] * Ad, Kartik Mcclure MD - 11/22/2021 6:38 AM EDT ORTHOPAEDIC SURGERY INPATIENT PROGRESS NOTE Patient Name: Susan Whitney Age: 51 y.o. Surgery/Issue: L Total Ankle Arthroplasty Attending: Dr. Covarrubias Date of surgery: 11/21/2021 SUBJECTIVE / INTERVAL HISTORY: Resting comfortably this AM. Nerve block remains in effect. LLE elevated with pillows. XRs reviewed with patient. Patient denies chest pain, shortness of breath, nausea, vomiting, numbness/weakness. FOCUSED REVIEW OF SYSTEMS: as above. Active Hospital Problems Diagnosis ??? 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 Covarrubias) ??? History of arthroplasty of left ankle ??? Morbid obesity with BMI of 40.0-44.9, adult Resolved Hospital Problems No resolved problems to display. Active Non-Hospital Problems Diagnosis ??? Edema of left lower leg ??? Arthritis of left ankle ??? Left foot pain MEDICATIONS: ??? scopolamine (TRANSDERM-SCOP) 1 mg patch Patch Verification ??? scopolamine (TRANSDERM-SCOP) 1 mg patch Patch Removal ??? povidone-iodine (Betadine Ophthalmic Prep) 5 % ophthalmic solution ??? sodium chloride 0.9 % (flush) (BD PosiFlush Normal Saline 0.9) flush 5 mL ??? sodium chloride 0.9 % (flush) (BD PosiFlush Normal Saline 0.9) flush 5-20 mL ??? lidocaine (Xylocaine) 1% (10 mg/mL) injection 3 mg ??? polyethylene glycoL (Miralax) packet 17 g ??? senna-docusate (Pericolace) 8.6-50 mg per tablet 2 tablet ??? bisacodyl EC (Dulcolax) tablet 10 mg ??? bisacodyL (Dulcolax) suppository 10 mg ??? acetaminophen (Tylenol) tablet 1,000 mg ??? ketorolac (Toradol) (30 mg/mL) injection 15 mg ??? pantoprazole EC (Protonix) tablet 20 mg ??? aspirin EC tablet 81 mg OBJECTIVE: Temp: [36.5 ??C (97.7 ??F)-37 ??C (98.6 ??F)] Heart Rate: [47-64] Resp: [6-18] BP: (116-165)/(59-93) Intake/Output Summary (Last 24 hours) at 11/22/2021 0638 Last data filed at 11/22/2021 0400 Gross per 24 hour Intake 1810 ml Output 2275 ml Net -465 ml There is no height or weight on file to calculate BMI. PE: General: awake/alert, responds to questions CV: RRR assessed peripherally Resp: Breathing comfortably on RA LLE: Left lower extremity in a splint to the upper calf with tape reinforcement anterior. Sensory absent to light touch in distal digits. Motor intact knee extension/flexion, hip extension/flexion, toes not yet mobile 2/2 block Brisk capillary refill distally, toes warm/well-perfused Lab Results Component Value Date NA 141 10/25/2021 K 4.1 10/25/2021 CL 104 10/25/2021 CO2 27 10/25/2021 BUN 18 10/25/2021 CREATININE 0.59 (L) 10/25/2021 GLUCOSE 96 10/25/2021 CALCIUM 9.4 10/25/2021 Lab Results Component Value Date WBC 7.2 10/25/2021 HGB 12.4 10/25/2021 HCT 39.3 10/25/2021 MCV 82.7 10/25/2021 PLATELET 327 10/25/2021 IMAGING: No post-op imaging ASSESSMENT / PLAN: Susan Whitney is a 51 y.o. female 1 Day Post-Op s/p L Total Ankle Arthroplasty.Doing well post-operatively. Anticipate discharge today pending evaluation by PT with f/u in 2 wks as schedonovan. Activity: NWB LLE SLS Closure: Sutures (to be removed at Orthopaedic follow-up appointment) Dressing: Short leg splint Anticoagulation: ASA 81 mg BID for 30 days Antibiotics: periop ancef Consults: PT/OT Dispo: pending PT/OT eval Follow-up: scheduled Kartik Duong MD 11/22/2021 Future Appointments Date Time Provider Department Center 12/06/2021 11:00 AM [facility] DX ROOM 2 MH Xray [facility] Rad 12/06/2021 11:30 AM Karey De PA [facility] ORTH 3C [facility] * Freddie Walker MD - 11/21/2021 10:22 AM EDT ORTHOPAEDIC SURGERY INPATIENT PROGRESS NOTE Patient Name: Susan Whtiney Age: 51 y.o. Surgery/Issue: L Total Ankle Arthroplasty Attending: Dr. Covarrubias Date of surgery: 11/21/2021 SUBJECTIVE / INTERVAL HISTORY: Pain well controlled after some pain medicine in recovery. I am Inhaling my food. Patient denies chest pain, shortness of breath, nausea, vomiting, numbness/weakness. FOCUSED REVIEW OF SYSTEMS: as above. Active Hospital Problems Diagnosis ??? 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 Covarrubias) ??? History of arthroplasty of left ankle Resolved Hospital Problems No resolved problems to display. Active Non-Hospital Problems Diagnosis ??? Edema of left lower leg ??? Arthritis of left ankle ??? Left foot pain MEDICATIONS: ??? sodium chloride 0.9 % (flush) (BD PosiFlush Normal Saline 0.9) flush 5-20 mL ??? lidocaine (Xylocaine) 1% (10 mg/mL) injection 3 mg ??? lactated ringers infusion ??? midazolam (pf) (Versed) (1 mg/mL) injection 1 mg ??? naloxone (Narcan) (0.4 mg/mL) injection 0.04 mg ??? fentaNYL (pf) (50 mcg/mL) multi-dose injection 25 mcg OR fentaNYL (pf) (50 mcg/mL) multi-dose injection 50 mcg ??? ondansetron (pf) (Zofran) (2 mg/mL) injection 4 mg ??? povidone-iodine (Betadine Ophthalmic Prep) 5 % ophthalmic solution ??? sodium chloride 0.9 % (flush) (BD PosiFlush Normal Saline 0.9) flush 5 mL ??? sodium chloride 0.9 % (flush) (BD PosiFlush Normal Saline 0.9) flush 5-20 mL ??? lidocaine (Xylocaine) 1% (10 mg/mL) injection 3 mg ??? ceFAZolin (Ancef) 2 g vial attach to sodium chloride 0.9% 100 mL Mini-Bag Plus ??? lactated Ringers OBJECTIVE: Temp: [36.3 ??C (97.3 ??F)] Heart Rate: [52-64] Resp: [13-18] BP: (134-165)/(74-93) Intake/Output Summary (Last 24 hours) at 11/21/2021 1022 Last data filed at 11/21/2021 0942 Gross per 24 hour Intake 700 ml Output 25 ml Net 675 ml There is no height or weight on file to calculate BMI. PE: General: awake/alert, responds to questions CV: RRR assessed peripherally Resp: Breathing comfortably on RA LLE: Left lower extremity in a splint to the upper calf with tape reinforcement anterior. Sensory intact to light touch in distal digits. Motor intact knee extension/flexion, hip extension/flexion, toes not yet mobile 2/2 block Brisk capillary refill distally, toes warm/well-perfused Lab Results Component Value Date NA 141 10/25/2021 K 4.1 10/25/2021 CL 104 10/25/2021 CO2 27 10/25/2021 BUN 18 10/25/2021 CREATININE 0.59 (L) 10/25/2021 GLUCOSE 96 10/25/2021 CALCIUM 9.4 10/25/2021 Lab Results Component Value Date WBC 7.2 10/25/2021 HGB 12.4 10/25/2021 HCT 39.3 10/25/2021 MCV 82.7 10/25/2021 PLATELET 327 10/25/2021 IMAGING: No post-op imaging ASSESSMENT / PLAN: Susan Whitney is a 51 y.o. female Day of Surgery s/p L Total Ankle Arthroplasty. Doing well post-operatively. Discharge pending evaluation by PT/OT on POD1 but aiming for discharge tomorrow. Activity: NWB LLE SLS Closure: Sutures (to be removed at Orthopaedic follow-up appointment) Dressing: Short leg splint Anticoagulation: ASA 81 mg BID for 30 days Antibiotics: periop ancef Consults: PT/OT Dispo: pending PT/OT eval Follow-up: scheduled Freddie Walker MD 11/21/2021 Future Appointments Date Time Provider Department Center 12/06/2021 11:00 AM [facility] DX ROOM 2 MH Xray [facility] Rad 12/06/2021 11:30 AM Karey De PA [facility] ORTH 3C [facility] * Bianca Rizo RN - 11/21/2021 10:09 AM EDT Patient admitted to PACU. Hand off received from .Lorenza Gale CRNA. care assumed. Assessments asdocumented. Monitors on, alarms audible and individualized to patient. 1045 discussed oxycodone allergy with ortho. Order D/C pain tolerable with IV toradol. Will notify team if further intervention needed. Patient can tolerate po hydromorphone, but experiences extreme diaphoresis 1100 PACU D/C criteria met 1130 Hand off to JOSHUA Lawrence SSU documented in this encounter H&P Notes * Tio Covarrubias MD - 11/21/2021 7:02 AM EDT I spoke with and examined the patient on the date of surgery prior to proceeding to the operating room. I reviewed the risks, benefits, alternatives to, and recovery from the proposed procedure: lefttotal ankle arthroplasty. I confirmed the correct operative site. The patient expressed understanding of the operative plan and wished to proceed with operative treatment. They have had no changes intheir health since their preoperative visit. She is planning on spending the night in the [facility]. Tio Covarrubias MD [facility] Orthopaedic Surgery Attending documented in this encounter Miscellaneous Notes * Op Note - Tio Covarrubias MD - 11/21/2021 7:53 AM EDT [facility] Operative Note Patient Name: Susan Whitney : [id number] MR#: [id number] Case Date: 11/21/2021 Surgeon: Surgeon(s) and Role: * Tio Covarrubias MD - Primary * Ad, Kartik Mcclure MD - Resident Preoperative diagnosis: Left ankle arthritis Postoperative diagnosis: Left ankle arthritis Procedure(s) (LRB): TOTAL ANKLE ARTHROPLASTY (WRVU 14.42) (Left) Anesthesia: General Estimated Blood Loss: 25 mL Specimens removed during surgery: None Drains: * No LDAs found * Surgical Closure: Primary Closure - skin incision is completely closed without any wires, rigoberto, drains or other devices Disposition: awakened from anesthesia, extubated and taken to the recovery room in a stable condition, having suffered no apparent untoward event. Condition: doing well without problems (Please see the Surgical Encounter Summary for any Implant and Specimen details pertinent to this patient.) Implants: Implant Name Type Inv. Item Serial No. Import Clerk Lot No. LRB No. Used Action infinity adaptis tibial tray size 3 material [id number] Left 1 Implanted COMPONENT TALAR ANKLE JOINT SZ 2 INFINITY ADAPTIS ([id number]) - [id number] IMPLANTS COMPONENT TALAR ANKLE JOINT SZ 2 INFINITY ADAPTIS ([id number]) Notable Limited [facility] [place] - Primeloop [id number] Left 1 Implanted infinity everlast cross-linked poly insert size 2+ h:8mm [id number] Left 1 Implanted Description of procedure: After being identified, marked, and having preoperative consent confirmed in the preoperative holding area, the patient proceeded to the operative theater. A preoperative timeout was held the patientreceived preoperative antibiotics. General endotracheal anesthesia was induced after she was placedon the operating room table with all bony prominences well-padded. High right thigh tourniquet was placed. Her right leg was prepped and draped in a sterile fashion. Leg was elevated, exsanguinated, and the tourniquet inflated to 250 mmHg where it stayed for 109 until closure of the wound. We began with an anterior approach to the ankle. An incision was made directly anterior to the tibiotalar joint and dissection was carried down until the extensor retinaculum was identified. This wascut in a stepwise fashion in order to close it in a lengthened manner after the procedure. We identified the tibialis anterior and the extensor hallucis longus. We dissected between these 2 tendons, identifying the neurovascular bundle containing the deep peroneal nerve and the dorsalis pedis artery. We protected these throughout the remainder of the case. We exposed the distal tibia and the talus down to the talonavicular joint. We denuded the anterior tibia of soft tissue and then used the patient specific cut guide in order to place four pins in the distal tibia. The position of the pins was checked on C-arm fluoroscopy. We then placed the tibial corner drill guide over these pins. We drilled the medial and lateral corners bicortically. We switched this out for the 4-in-1 cutting guideand made the distal tibial cut as well as the medial and lateral tibial cuts. Care was taken not toplunge with the saw. The distal tibial cut was then removed in its entirety. The posterior capsule remained intact. Loose fragments of bone adherent to the capsule were removed with a rongeur. We then used the patient specific talar cut guide in order to place 2 horizontal pins just underneath the dome of the talus. The position of these pins was checked under C-arm fluoroscopy, and then the 4-in-1 cutting guide was placed on the talar pins through the inferior most holes. An oscillatingsaw was used to create the superior talar dome cut which was a small wafer of bone as expected. We then placed the tibial trial and checked its depth. We used a lamina patient safety attendant to anchor the tibial trial and then malleted the peg holes with the anterior and posterior awls. We then performed gutter debridement medially and laterally, using a reciprocating saw in the medial gutter and a synovial rongeur in the lateral gutter. We placed a trial polyethylene in the tibial trial and then used the mobile talar trial in order to identify the sweet spot position with flexion and extension of the ankle. We checked our AP and lateral x-rays and found that the talar guide set well on both. We pinnedit in place and removed all of our trials. We then placed the fishing cut guide for the talus over the 2 talar pins and placed two hand tightened threaded pins through the posterior holes of the guide. We used an oscillating saw to perform our posterior chamfer cut and then the mill insert in orderto perform the 2 components of the anterior chamfer cut. These were performed first with in and outpasses and then side to side sweeps. We cleared any remaining bone with a rongeur. We then replacedour tibial trial and polyethylene and placed the final tibial guide over the chamfer cuts of the talus. We again used the sweet spot technique in order to center the trial, pinned it, and then drilled the peg holes for the talus. We checked medial and lateral stability with varus and valgus forceand found it to be quite stable. Flexion and extension were adequate. We determined we were happy with our implants. We removed all of our trials. We copiously irrigated with normal saline. We opened our final tibial baseplate and put it on the senior technical program manager. We lined up the pegs and used the impaction hammer to mallet it flush with the tibial cut, first posteriorly, and then anteriorly. We placed a protective plastic layer over the baseplate and then impacted our final talar component in a similar manner. We used the polyethylene insertion device to place a 6 mm polyethylene which was finally impacted as well. Final x-rays showed excellent seating of the metal implants, good flexion and extension, and stability to varus and valgus force at 90 degrees of dorsiflexion. We irrigated with a dilute Betadine solution and then copiously irrigated again with pulsatile normal saline. We daisha sed the extensor retinaculum in a slightly lengthened position by bringing the long ends of the retinaculum together from the step cuts. We closed the deep dermal layer with Vicryl sutures. We let down our tourniquet at 2 hours. We then closed the skin with interrupted vertical mattress nylon sutures. A dry sterile dressing and a well-padded splint replaced. The patient's anesthesia was reversed and she was discharged the PACU in stable condition. Surgical Infection Prevention Bundle Used? N/A Attestation: Case Date: 11/21/2021 I was present and I participated during the entire procedure (does not need to include opening and closing). TIO COVARRUBIAS MD 11/21/2021 documented in this encounter Plan of Treatment Upcoming Encounters Date Type Department Care Team (Late st Contact Info) Description 12/04/2023 8:00 AM EDT Office [place] [phone] Cyn Murphy, PT [facility] & [place] [address] 12/04/2023 10:45 AM EDT Appointment XRay at [address] [place] [address] 12/04/2023 11:40 AM EDT Office [place] [phone] Jennifer Stanley DIRECTOR BROADCAST [facility] [place] [address] documented as of this encounter Procedures Procedure Name Priority Date/Time Associated Diagnosis Comments XR FLUORO NO RAD <1HR - OR USE Routine 11/21/2021 9:23 AM EDT Arthroplasty Ankle With Implant ([id number]) 11/21/2021 7:23 AM EDT Left ankle arthritis TOTAL ANKLE ARTHROPLASTY Routine 11/21/2021 6:05 AM EDT IMPLANTABLE DEVICES SCAN 11/21/2021 12:00 AM EDT documented in this encounter Results * XR Fluoro No Rad <1Hr - OR Use (11/21/2021 9:23 AM EDT) Narrative Dicom, Auditing User - 11/21/2021 9:24 AM EDT This exam is auto-finalizing. No interpretation was done. Tio Covarrubias MD IMG FLUORO ORDERABLE S * SCAN DOC: IMPLANTABLE DEVICES (11/21/2021 12:00 AM EDT) Narrative 11/21/2021 12:00 AM EDT Ordered by an unspecified provider. 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 Covarrubias)- Primary History of arthroplasty of left ankle Morbid obesity with BMI of 40.0-44.9, adult Morbid obesity documented in this encounter Admitting Diagnoses Diagnosis History of arthroplasty of left ankle documented in this encounter Administered Medications Inactive Administered Medications - up to 3 most recent administrations Medication Order MAR Action Action Date Dose Rate Site acetaminophen (Tylenol) tablet 1,000 mg 1,000 mg, Oral, ONCE, 1 dose, On Sun11/21/21 at 0630, Administer with SIP of H2O only. Maximum dose of acetaminophen is 4,000 mg from all sources in 24 hours., Day of Surgery (Day of Procedure), Routine Given 11/21/2021 6:20 AM EDT 1,000 mg acetaminophen (Tylenol) tablet 1,000 mg 1,000 mg, Oral, EVERY 8 HOURS SCHEDULED, First dose on Sun11/21/21 at 1400, Until Discontinued, Maximum dose of acetaminophen is 4000 mg from all sources in 24 hours. When ordered for pain, acetaminophen should be given even when other ordered pain medications are indicated. , Routine Given 11/22/2021 2:01 PM EDT 1,000 mg Given 11/22/2021 5:27 AM EDT 1,000 mg Given 11/21/2021 9:29 PM EDT 1,000 mg aspirin EC tablet 81 mg 81 mg, Oral, 2 TIMES DAILY, First dose on Sun11/21/21 at 1315, Until Discontinued, Routine Given 11/22/2021 8:45 AM EDT 81 mg Given 11/21/2021 8:07 PM EDT 81 mg Given 11/21/2021 1:52 PM EDT 81 mg ceFAZolin (Ancef) 2 g vial attach to sodium chloride 0.9% 100 mL Mini-Bag Plus 2 g, Intravenous, EVERY 8 HOURS, 3 doses, First dose on Sun11/21/21 at 1130, Last dose on Sun11/22/21 at 0330, Administer over 30 Minutes, Adjust to 4 hours from intraoperative dose. * Beta-lactam based antibiotics (eg. Ampicillin, Cefazolin, Aztreonam) should be administered within 4 hours of the preceding intraoperative dose. * Vancomycin, Fluoroquinolones, Clindamycin, Gentamicin, and Metronidazole should be administered within 8 hours of the preceding intraoperative dose., Recovery (Recovery-Hospital Unit), Indication for (Active or Suspected): Prophylaxis New Bag 11/22/2021 3:57 AM EDT 2 g 200 mL/hr New Bag 11/21/2021 7:01 PM EDT 2 g 200 mL/hr New Bag 11/21/2021 11:30 AM EDT 2 g 200 mL/hr fentaNYL (pf) (50 mcg/mL) multi-dose injection 25 mcg 25 mcg, Intravenous, EVERY 5 MIN PRN, Starting on Sun11/21/21 at 0940, Until Sun11/21/21 at 1135, Pain, Mild to moderate pain (1-5 out of 10), Hold for respiratory rate less than 10 per minute. Maximum dose 200 mcg over one hour, including OR administration. If ordered with HYDROmorphone or morphine, give HYDROmorphone or morphine first and use fentaNYL for breakthrough pain., PACU Recovery, Routine Given 11/21/2021 10:27 AM EDT 25 mcg Given 11/21/2021 10:20 AM EDT 25 mcg HYDROmorphone (Dilaudid) tablet 2-4 mg 2-4 mg, Oral, EVERY 4 HOURS PRN, Starting on Sun11/22/21 at 1252, Until Sun11/22/21 at 1730, Pain, Mild to moderate pain (2-5) take 2 mg, moderate to severe pain (6-10) take 4 mg., Routine Given 11/22/2021 2:02 PM EDT 2 mg ketorolac (Toradol) (30 mg/mL) injection 15 mg 15 mg, Intravenous, EVERY 6 HOURS PRN, Starting on Sun11/21/21 at 1025, Until Sun11/22/21 at 1730, Pain, Routine Given 11/22/2021 8:49 AM EDT 15 mg Given 11/21/2021 4:39 PM EDT 15 mg Given 11/21/2021 10:30 AM EDT 15 mg midazolam (pf) (Versed) (1 mg/mL) injection 1 mg 1 mg, Intravenous, EVERY 5 MIN PRN, Starting on Sun11/21/21 at 0637, Until Sun11/21/21 at 1135, Other, sedation or prior to injection of local anesthetic, Hold for delirium/agitation. (Maximum dose 5 mg)., Day of Surgery (Day of Procedure), Routine Given 11/21/2021 6:55 AM EDT 1 mg Given 11/21/2021 6:50 AM EDT 1 mg pantoprazole EC (Protonix) tablet 20 mg 20 mg, Oral, DAILY, First dose on Sun11/21/21 at 1315, Until Discontinued, DO NOT CRUSH OR OPEN Given 11/22/2021 8:44 AM EDT 20 mg Given 11/21/2021 1:52 PM EDT 20 mg polyethylene glycoL (Miralax) packet 17 g 17 g, Oral, 2 TIMES DAILY, First dose on Sun11/21/21 at 1315, Until Discontinued, Routine Given 11/22/2021 8:45 AM EDT 17 g Given 11/21/2021 1:53 PM EDT 17 g scopolamine (Transderm Scop) 1 mg over 3 days patch 1 patch 1 patch, Transdermal, ONCE, 1 dose, On Sun11/21/21 at 0700, Day of Surgery (Day of Procedure), Routine Patch Applied 11/21/2021 7:00 AM EDT 1 patch 02- Ear Behind (Right) senna-docusate (Pericolace) 8.6-50 mg per tablet 2 tablet 2 tablet, Oral, 2 TIMES DAILY, First dose on Sun11/21/21 at 1315, Until Discontinued, Routine Given 11/22/2021 8:45 AM EDT 2 tablets Given 11/21/2021 8:07 PM EDT 2 tablets Given 11/21/2021 1:52 PM EDT 2 tablets sodium chloride 0.9 % (flush) (BD PosiFlush Normal Saline 0.9) flush 5 mL 5 mL, Intravenous, 2 TIMES DAILY, First dose on Sun11/21/21 at 1045, Until Discontinued, Recovery (Recovery-Hospital Unit), Routine Given 11/21/2021 8:08 PM EDT 5 mLs documented in this encounter Active and Recently Administered Medications Times are shown in EDT. Scheduled Medication Order 11/20/2021 11/21/2021 11/22/2021 acetaminophen (Tylenol) tablet 1,000 mg (COMPLETED) 1,000 mg, Oral, ONCE, 1 dose, On Sun11/21/21 at 0630, Administer with SIP of H2O only. Maximum dose of acetaminophen is 4,000 mg from all sources in 24 hours., Day of Surgery (Day of Procedure), Routine 0620 (Given - Provider: Edith Rojas RN) acetaminophen (Tylenol) tablet 1,000 mg 1,000 mg, Oral, EVERY 8 HOURS SCHEDULED, First dose on Sun11/21/21 at 1400, Until Discontinued, Maximum dose of acetaminophen is 4000 mg from all sources in 24 hours. When ordered for pain, acetaminophen should be given even when other ordered pain medications are indicated. , Routine 1352 (Given - Provider: Melinda Thomas RN)2128 (Given - Provider: Lexie Anthony RN) 0527 (Given - Provider: Freddie Vargas LPN)1401 (Given - Provider: Anibal Miles RN) aspirin EC tablet 81 mg 81 mg, Oral, 2 TIMES DAILY, First dose on Sun11/21/21 at 1315, Until Discontinued, Routine 1352 (Given - Provider: Melinda Thomas RN)2006 (Given - Provider: Lexie Anthony RN) 0845 (Given - Provider: Anibal Miles, JOSHUA) ceFAZolin (Ancef) 2 g vial attach to sodium chloride 0.9% 100 mL Mini-Bag Plus (COMPLETED) 2 g, Intravenous, EVERY 8 HOURS, 3 doses, First dose on Sun11/21/21 at 1130, Last dose on Sun11/22/21 at 0330, Administer over 30 Minutes, Adjust to 4 hours from intraoperative dose. * Beta-lactam based antibiotics (eg. Ampicillin, Cefazolin, Aztreonam) should be administered within 4 hours of the preceding intraoperative dose. * Vancomycin, Fluoroquinolones, Clindamycin, Gentamicin, and Metronidazole should be administered within 8 hours of the preceding intraoperative dose., Recovery (Recovery-Hospital Unit), Indication for (Active or Suspected): Prophylaxis 1130 (New Bag - Provider: Bianca Rizo RN)1200 (Stopped - Provider: Bianca Rizo RN)1901 (New Bag - Provider: Melinda Thomas RN)1931 (Stopped - Provider: Lexie Anthony RN) 0357 (New Bag - Provider: Lexie Anthony RN)0427 (Stopped - Provider: Lexie Anthony RN) pantoprazole EC (Protonix) tablet 20 mg 20 mg, Oral, DAILY, First dose on Sun11/21/21 at 1315, Until Discontinued, DO NOT CRUSH OR OPEN 1352 (Given - Provider: Melinda Thomas RN) 0844 (Given - Provider: Anibal Miles RN) polyethylene glycoL (Miralax) packet 17 g 17 g, Oral, 2 TIMES DAILY, First dose on Sun11/21/21 at 1315, Until Discontinued, Routine 1353 (Given - Provider: Melinda Thomas RN)2100 (Not Given - Provider: Lexie Anthony RN - Reason: Patient/family refused) 0845 (Given - Provider: Anibal Miles RN) scopolamine (Transderm Scop) 1 mg over 3 days patch 1 patch (COMPLETED) 1 patch, Transdermal, ONCE, 1 dose, On Sun11/21/21 at 0700, Day of Surgery (Day of Procedure), Routine 0700 (Patch Applied - Provider: Edith Rojas RN) scopolamine (TRANSDERM-SCOP) 1 mg patch Patch Removal Transdermal, ONCE, 1 dose, On Sun11/22/21 at 0645, Remove scopolamine 1 mg patch, Recovery (Recovery-Hospital Unit) 0557 (Patch Removed - Provider: Freddie Vargas LPN)0558 (Patch Removed - Provider: Lexie Anthony RN)0645 (Due) scopolamine (TRANSDERM-SCOP) 1 mg patch Patch Verification Transdermal, 2 TIMES DAILY, 2 doses, First dose on Sun11/21/21 at 1845, Last dose on Sun11/22/21 at 0900, Verify scopolamine 1 mg patch., Recovery (Recovery-Hospital Unit) 1845 (Patch (dose and location) verified - Provider: Melinda Thomas RN - Comment: r ear) 0900 (Patch Not Verified (add comment) - Provider: Anibal Miles RN - Comment: Not wearing) senna-docusate (Pericolace) 8.6-50 mg per tablet 2 tablet 2 tablet, Oral, 2 TIMES DAILY, First dose on Sun11/21/21 at 1315, Until Discontinued, Routine 1352 (Given - Provider: Melinda Thomas RN)2006 (Given - Provider: Lexie Anthony RN) 0845 (Given - Provider: Anibal Miles RN) sodium chloride 0.9 % (flush) (BD PosiFlush Normal Saline 0.9) flush 5 mL 5 mL, Intravenous, 2 TIMES DAILY, First dose on Sun11/21/21 at 1045, Until Discontinued, Recovery (Recovery-Hospital Unit), Routine 1045 (Due)2007 (Given - Provider: Lexie Anthony RN) 0900 (Due) Continuous Medication Order 11/20/2021 11/21/2021 11/22/2021 lactated ringers infusion (CANCELED) 1,000 mL, at 100 mL/hr, Intravenous, CONTINUOUS, Starting on Sun11/21/21 at 0630, Until Sun11/21/21 at 1135, Day of Surgery (Day of Procedure) 0722 (New Bag - Provider: Skye Gale CRNA)0800 (Anesthesia Volume Adjustment - Provider: Skye Gale CRNA)0940 (Anesthesia Volume Adjustment - Provider: Skye Gale CRNA) PRN Medication Order 11/20/2021 11/21/2021 11/22/2021 bisacodyL (Dulcolax) suppository 10 mg 10 mg, Rectal, DAILY PRN, Starting on Sun11/21/21 at 1218, Until Sun11/22/21 at 1730, Constipation, Administer if needed per patient's routine or if no bowel movement within 48 hours to achieve: (1) One bowel movement every 48 hours, AND (2) without straining. If multiple PRN bowel medications ordered, start with lactulose, then oral bisacodyl, then bisacodyl suppository. Multiple medications may be given concomitantly for constipation., Routine bisacodyl EC (Dulcolax) tablet 10 mg 10 mg, Oral, 2 TIMES DAILY PRN, Starting on Sun11/21/21 at 1218, Until Sun11/22/21 at 1730, Constipation, DO NOT CRUSH OR OPEN Administer if needed per patient's routine or if no bowel movement within 48 hours to achieve: (1) One bowel movement every 48 hours, AND (2) without straining. If multiple PRN bowel medications ordered, start with lactulose, then oral bisacodyl, then bisacodyl suppository. Multiple medications may be given concomitantly for constipation., Routine fentaNYL (pf) (50 mcg/mL) multi-dose injection 25 mcg (CANCELED)(Linked Group 1) 25 mcg, Intravenous, EVERY 5 MIN PRN, Starting on Sun11/21/21 at 0940, Until Sun11/21/21 at 1135, Pain, Mild to moderate pain (1-5 out of 10), Hold for respiratory rate less than 10 per minute. Maximum dose 200 mcg over one hour, including OR administration. If ordered with HYDROmorphone or morphine, give HYDROmorphone or morphine first and use fentaNYL for breakthrough pain., PACU Recovery, Routine 1020 (Given - Provider: Bianca Rizo RN)1027 (Given - Provider: Bianca Rizo, JOSHUA) HYDROmorphone (Dilaudid) tablet 2-4 mg 2-4 mg, Oral, EVERY 4 HOURS PRN, Starting on Sun11/22/21 at 1252, Until Sun11/22/21 at 1730, Pain, Mild to moderate pain (2-5) take 2 mg, moderate to severe pain (6-10) take 4 mg., Routine 1402 (Given - Provid er: Anibal Miles RN) ketorolac (Toradol) (30 mg/mL) injection 15 mg 15 mg, Intravenous, EVERY 6 HOURS PRN, Starting on Sun11/21/21 at 1025, Until Sun11/22/21 at 1730, Pain, Routine 1030 (Given - Provider: Bianca Rizo RN)1639 (Given - Provider: Melinda Thomas RN) 0849 (Given - Provider: Anibal Miles, JOSHUA) lidocaine (Xylocaine) 1% (10 mg/mL) injection 3 mg 3 mg (0.3 mL), Subcutaneous, ONCE PRN, 1 dose, Starting on Sun11/21/21 at 1016, Until Sun11/22/21 at 1730, for discomfort with PIV insertion, Recovery (Recovery-Hospital Unit), Routine midazolam (pf) (Versed) (1 mg/mL) injection 1 mg (CANCELED) 1 mg, Intravenous, EVERY 5 MIN PRN, Starting on Sun11/21/21 at 0637, Until Sun11/21/21 at 1135, Other, sedation or prior to injection of local anesthetic, Hold for delirium/agitation. (Maximum dose 5 mg)., Day of Surgery (Day of Procedure), Routine 0650 (Given - Provider: Edith Rojas RN)0655 (Given - Provider: Edith Rojas RN) povidone-iodine (Betadine Ophthalmic Prep) 5 % ophthalmic solution (CANCELED) ONCE PRN, Starting on Sun11/21/21 at 0757, Until Sun11/22/21 at 1730, Intra-Operative (Intra-Procedure), Routine 0757 (Given - Provider: Tio Covarrubias MD - Comment: mixed in 500ml saline) sodium chloride 0.9 % (flush) (BD PosiFlush Normal Saline 0.9) flush 5-20 mL 5-20 mL, Intravenous, EVERY 1 MIN PRN, Starting on Sun11/21/21 at 1016, Until Sun11/22/21 at 1730, flush, Flush pertains to all indwelling lines. Flush per protocol found in the job aid using the link provided on this medication record., Recovery (Recovery-Hospital Unit), Routine Linked Groups Order Group 1: fentaNYL (pf) (50 mcg/mL) multi-dose injection 25 mcg (CANCELED)Jump to med 25 mcg, Intravenous, EVERY 5 MIN PRN, Starting on Sun11/21/21 at 0940, Until Sun11/21/21 at 1135, Pain, Mild to moderate pain (1-5 out of 10), Hold for respiratory rate less than 10 per minute. Maximum dose 200 mcg over one hour, including OR administration. If ordered with HYDROmorphone or morphine, give HYDROmorphone or morphine first and use fentaNYL for breakthrough pain., PACU Recovery, Routine Or fentaNYL (pf) (50 mcg/mL) multi-dose injection 50 mcg (CANCELED) 50 mcg, Intravenous, EVERY 5 MIN PRN, Starting on Sun11/21/21 at 0940, Until Sun11/21/21 at 1135, Pain, Moderate to severe pain (6-10 out of 10), Hold for respiratory rate less than 10 per minute. Maximum dose 200 mcg over one hour, including OR administration. If ordered with HYDROmorphone or morphine, give HYDROmorphone or morphine first and use fentaNYL for breakthrough pain., PACU Recovery, Routine documented in this encounter Care Teams General Maintenance Mechanic Relationship Specialty Start Date End Date Jennifer Suarez, DIRECTOR BRO[employer]CAST [address] [place] [address] PCP - General Family Medicine 07/14/20 11/20/22 documented as of this encounter
--- OUTSIDE RECORDS SUMMARY | 2023-11-15 04:25 | XMS_ITS | Encounter Summary ---
[facility] [place] [address] Care Team Providers Care Wheel Filler Name Role Phone Jennifer Suarez APRN Primary Care Provider [phone] Reason for Visit * Reason Comments Pre-op Exam CASE REQ 11/21/21 LEF T TAA Encounter Details Date Type Department Care Team (Late st Contact Info) Description 10/31/2021 9:00 AM EDT Office [place] [phone] Tio Mayo MD [facility] [place] [address] Arthritis of left ankle Social History Tobacco Use [...] Sign Reading Time Taken Comments Blood Pressure 147/79 10/31/2021 9:05 AM EDT Pulse 84 10/31/2021 9:05 AM EDT Temperature - - Respiratory Rate - - Oxygen Saturation 97% 10/31/2021 9:05 AM EDT Inhaled Oxygen Concentration - - Weight 113.4 kg (250 lb) 10/31/2021 9:05 AM EDT Height 165.1 cm (5' 5) 10/31/2021 9:05 AM EDT Body Mass Index 41.6 10/31/2021 9:05 AM EDT documented in this encounter Progress Notes * Olivia Palmer RN - 10/31/2021 9:00 AM EDT PREOPERATIVE APPOINTMENT Chief complaint: Preoperative appointment for proposed left total ankle arthroplasty History of present illness: Susan Whitney is a 51 y.o. year-old female here in regards to the above. The patient has sought preoperative clearance with Dr. Maria. Review of the note reveals no definitive barriers to proceeding with surgery and a tolerable risk level. She has been progressing since her previous staged hind foot correction/screw removal. SHe has been using the lymphedema wraps and it has improved her swelling. The patient has had the following previous problems with surgery: Wound Healing issues Patient has Crutches and I-walk; also has a walker to use after surgery. Post op x-rays ordered: yes, left ankle Past medical history: Patient Active Problem List Diagnosis Date Noted ??? Edema of left lower leg 07/28/2021 ??? 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 Arthritis of left ankle 10/13/2020 ??? Left foot pain 10/14/2015 Medications: ??? cholecalciferol, Vitamin D3, 50 mcg (2,000 unit) Capsule ??? loratadine (Claritin) 10 mg Tablet ??? acetaminophen (Tylenol) 500 mg Tablet ??? gabapentin (Neurontin) 300 mg Capsule ??? albuteroL 90 mcg/actuation HFA Aerosol Inhaler ??? multivitamin Capsule ??? melatonin 1 mg Tablet ??? ibuprofen (ADVIL;MOTRIN) 600 mg Tablet Allergies: Allergies Allergen Reactions ??? [...] fevers, night sweats or chills Vital signs: Temp: -- Physical Exam: NAD. Well healed incisions left foot. Pain with ankle ROM. Mild swelling much improved from prior. Imaging: Personal review of the patient's imaging reveals: CT and XR reviewed Assessment: 51 y.o. year-old female here for a preoperative appointment for proposed left total ankle arthroplasty Plan: The patient and I discussed in detail the risks and benefits of surgery. We discussed the risks of bleeding, infection, damage to nerves, vessels, tendons, and ligaments. We discussed the risksof fracture, hardware failure, wound breakdown, need for reoperation, pain, stiffness, and non-relief or exacerbation of symptoms. We discussed the risks of blood clots, pulmonary embolism, stroke, heart attack, and other cardiopulmonary and anesthetic complications up to and including the risk of . We discussed the recovery from surgery, and the period of non weight bearing for an anticipated 6 weeks that would be required, as well as the 12 months until full recovery can be expected. Specific to this procedure, we discussed the risk of failure of implant, need for secondary procedure. Specific to the patient's comorbidities, we discussed the elevated risk of wound healing complications. We reviewed the nonoperative options for treatment. The patient voiced understanding of all we discussed and expressed a desire to move forward with surgery despite the risks of the procedure and the alternatives. The patient signed operative consent today. We discussed the fact that the patient will be seeing myself or one of the members of my care team for follow up, and that I work in concert with the remainder of the care team. We also reviewed the opioid consent form. I reviewed the risks of opioids and our goal of using theleast amount of opioid possible for the shortest period of time to control the patient's postoperative pain. They signed the opioid consent form. Opioid PDMP 10/31/2021 11/30/2020 [place] PDMP Query Date 10/31/2021 11/30/2020 [place] PDMP Query Date 10/31/2021 11/30/2020 [place] PDMP Query Date 10/31/2021 11/30/2020 She was also given chlorhexidine soap to use the night before and the morning of surgery. Postoperative anticoagulation: Aspirin 81 mg BID for 30 days Identified barriers to surgery: None This plan was discussed with the patient and they are in agreement. All of the patient's questions were answered. I have personally evaluated the patient and agree with the above note as recorded by Olivia Palmer RN, who acted as scribe for this note. Tio Mayo MD [place] 10/31/2021 documented in this encounter Plan of Treatment Upcoming Encounters Date Type Department Care Team (Late st Contact Info) Description 12/04/2023 8:00 AM EDT Office [place] [address] Cyn Murphy, PT [facility] PHYSICAL MEDICINE & [place] [address] 12/04/2023 10:45 AM EDT Appointment XRay at [address] [place] [phone] 12/04/2023 11:40 AM EDT [place] [address] Jennifer Stanley APRN [facility] [place] [address] documented as of this encounter Visit Diagnoses Diagnosis Arthritis of left ankle Unspecified arthropathy, ankle and foot documented in this encounter Administered Medications Inactive Administered Medications - up to 3 most recent administrations Medication Order MAR Action Action Date Dose Rate Site mupirocin (Bactroban) 2 % ointment 1 each 1 each, Topical (Top), 2 TIMES DAILY, First dose on 10/31/21 at 1015, 10 doses, Last dose on Sun11/04/21 at 2100, Apply two times daily to nares for 5 days prior to surgery Given 10/31/2021 9:48 AM EDT 1 each documented in this encounter Care Teams Wheel Filler Relationship Specialty Start Date End Date Jennifer Suarez, ROMINA [address] [facility] [place] [address] PCP - General Family Medicine 07/14/20 11/20/22 documented as of this encounter
--- OUTSIDE RECORDS SUMMARY | 2023-11-15 04:25 | XMS_ITS | Encounter Summary ---
Author Organization [facility] [place] [address] Care Team Providers Care Modern Languages Professor Name Role Phone Jennifer Suarez APRN Primary Care Provider Reason for Referral * Physical Therapy (Routine) - Closed Specialty Diagnoses / Procedures Referred By Cheri silverman Referred To Contact Physical Therapy Diagnoses Acquired left hindfoot varus Karey De PA [facility] [place] [address] [facility] [address] [place] [address] Referral ID Status Reason Start Date Expiration Date V isits Requested Visits Authorized [id number] Closed Evaluate and Treat 09/08/2021 09/08/2022 12 12 Encounter Details Date Type Department Care Team (Late st Contact Info) Description 09/08/2021 [place] [address] Karey De PA [facility] [place] [address] Acquired left hindfoot varus Social History Tobacco [...] AM EDT Office [place] [address] Cyn Murphy, PT [facility] PHYSICAL MEDICINE & [place] [address] 12/04/2023 10:45 AM EDT Appointment XRay at [address] [place] [address] 12/04/2023 11:40 AM EDT [place] [address] Jennifer Stanley STRUCTURAL IRONWORKER [facility] [place] [address] Scheduled Referrals Name Type Priority Associated Diagnoses Orde r Schedule Referral to Physical Therapy Outpatient Referral Routine Acquired left hindfoot varus Ordered: 09/08/2021 documented as of this encounter Visit Diagnoses Diagnosis Acquired left hindfoot varus documented in this encounter Care Teams Modern Languages Professor Relationship Specialty Start Date End Date Jennifer Suarez APRN [address] [place] [address] PCP - General Family Medicine 07/14/20 11/20/22 documented as of this encounter
--- OUTSIDE RECORDS SUMMARY | 2023-11-15 04:25 | XMS_ITS | Encounter Summary ---
Author Organization [facility] Address [facility] [place] [address] Care Team Providers Care Quill Buncher And Sorter Name Role Phone Jennifer Suarez APRN Primary Care Provider [phone] Encounter Details Date Type Department Care Team (Latest Contact Info) Description 04/01/2021 12:32 PM EST - 04/01/2021 11:59 PM [facility] Hospital Encounter XRay at [address] [place] [address] Tio Mayo MD [facility] ORTHOPAEDIC [place] [address] Acquired left hindfoot varus Discharge Disposition: Home Social History Tobacco Use [...] mg of Tylenol in 24 hours. 11/22/2021 albuteroL 90 mcg/actuation HFA Aerosol Inhaler INHALE [...] while taking ibuprofen 30 tablet 11/22/2021 01/06/2022 aspirin EC 81 mg Tablet, Delayed Release (E.C.) Take 1 tablet by mouth 2 times daily. 60 tablet 12/01/2020 10/25/2021 loratadine (Claritin) 10 mg Tablet Take 10 mg by mouth daily. 11/18/2021 acetaminophen (Tylenol) 500 mg Tablet Take by mouth every 6 hours as needed. 12/04/2017 11/22/2021 gabapentin (Neurontin) 300 mg Capsule Take by mouth as needed. 12/25/2019 11/21/2022 melatonin 1 mg Tablet Take by mouth nightly as needed. 12/06/2021 ibuprofen (ADVIL;MOTRIN) 600 mg Tablet Take 1 tablet by mouth every 6 hours as needed for Pain. 30 tablet 10/14/2015 11/22/2021 documented as of this encounter Plan of Treatment Upcoming Encounters Date Type Department Care Team (Late st Contact Info) Description 12/04/2023 8:00 AM EDT Office [place] [phone] Cyn Murphy, PT [facility] PHYSICAL MEDICINE & [place] [address] 12/04/2023 10:45 AM EDT Appointment XRay at [address] [place] [phone] 12/04/2023 11:40 AM EDT Office [place] [phone] Jennifer Stanley, BOOTH SUPERVISOR [facility] ORTHOPAEDIC [place] [address] documented as of this encounter Procedures Procedure Name Priority Date/Time Associated Diagnosis Comments XR FOOT MIN 3 VIEWS LEFT Routine 04/01/2021 12:45 PM EST Acquired left hindfoot varus documented in this encounter Results * XR Foot Min 3 views Left (Generic) (04/01/2021 12:45 PM EST) Anatomical Region Laterality Modality Foot Left Digital Radiogra phy Impressions 04/01/2021 1:49 PM EST Healing calcaneal osteotomy. No complication. Thank you for letting us participate in the care of this patient. ??If you are a health care provider and have any questions regarding this report, please contact the number below. ??For patients who have questions please contact the health furnace caretaker that requested your imaging first. ? Electronically signed by: Fili Downing MD, [facility] ([phone]), at 04/01/2021 1:49 PM Narrative 04/01/2021 1:49 PM EST EXAMINATION: XR FOOT MIN 3 VIEWS LEFT (GENERIC) CLINICAL HISTORY: 12/01/20 (Gael) LEFT YEE 2 screws, Lateralizing closing wedge osteotomy of the calcaneous TECHNIQUE: 3 views LEFT foot COMPARISON: 02/08/2021 FINDINGS: At the patient's calcaneal body osteotomy no change in alignment or fixation is evident. There is increased sclerosis of bone and bridging of bone consistent with ongoing healing. Procedure Note Fili Downing MD - 04/01/2021 EXAMINATION: XR FOOT MIN 3 VIEWS LEFT (GENERIC) CLINICAL HISTORY: 12/01/20 (Gael) LEFT YEE 2 screws, Lateralizing closingwedge osteotomy of the calcaneous TECHNIQUE: 3 views LEFT foot COMPARISON: 02/08/2021 FINDINGS: At the patient's calcaneal body osteotomy no change in alignment orfixation is evident. There is increased sclerosis of bone and bridging of boneconsistent with ongoing healing. IMPRESSION Healing calcaneal osteotomy. No complication. Thank you for letting us participate in the care of this patient. If youare a health care provider and have any questions regarding this report,please contact the number below. For patients who have questions please contactthe health furnace caretaker that requested your imaging first. Electronically signed by: Fili Downing MD, [facility]([phone]), at 04/01/2021 1:49 PM Tio Mayo MD IMG DX ORDERABLES documented in this encounter Visit Diagnoses Diagnosis Acquired left hindfoot varus documented in this encounter Care Teams Quill Buncher And Sorter Relationship Specialty Start Date End Date Jennifer Suarez, BOOTH SUPERVISOR [address] [place] [address] PCP - General Family Medicine 07/14/20 11/20/22 documented as of this encounter
--- OUTSIDE RECORDS SUMMARY | 2023-11-15 04:25 | XMS_ITS | Encounter Summary ---
[place] [address] Care Team Providers Care Cyber Software Engineer Name Role Phone Jennifer Suarez APRN Primary Care Provider [phone] Encounter Details Date Type Department Care Team (Late st Contact Info) Description 09/07/2021 Orders [place] [phone] Tio Mayo MD [facility] [place]ED[place] [address] Edema of left lower leg (Primary Dx); Acquired left hindfoot varus s/p lateral closing wedge osteotomy 12/01/20 Gael Social History Tobacco Use Types Packs/Day Years [...] AM EDT Office [place] [phone] Cyn Murphy, PT [facility] PHYSICAL MEDICINE & [place] [address] 12/04/2023 10:45 AM EDT Appointment XRay at [address] [place] [address] 12/04/2023 11:40 AM EDT Office Visit Orthopaedics at [facility] [place] [address] Jennifer Stanley APRN [facility] [place]THOPAEDIC [place] [address] documented as of this encounter Visit Diagnoses Diagnosis Edema of left lower leg- Primary Acquired left hindfoot varus s/p lateral closing wedge osteotomy 12/01/20 Gael documented in this encounter Care Teams Cyber Software Engineer Relationship Specialty Start Date End Date Jennifer Suarez APRN [address] [place] [address] PCP - General Family Medicine 07/14/20 11/20/22 documented as of this encounter
--- OUTSIDE RECORDS SUMMARY | 2023-11-15 04:25 | XMS_ITS | Encounter Summary ---
Author Organization [facility] [place] [address] Care Team Providers Care Uniforms Sales Representative Name Role Phone Jennifer Suarez APRN Primary Care Provider [phone] Reason for Referral * Physical Therapy (Routine) - Closed Specialty Diagnoses / Procedures Referred By Contelida t Referred To Contact Diagnoses Plantar fasciitis Karey De PA [facility] [place] [address] Referral ID Status Reason Start Date Expiration Date V isits Requested Visits Authorized [id number] Closed Evaluate and Treat 06/10/2021 12/07/2021 12 12 Encounter Details Date Type Department Care Team (Late st Contact Info) Description 06/10/2021 3:30 PM EDT Office [place] [address] Karey De PA [facility] [address] Plantar fasciitis Social History Tobacco Use Types Packs/Day Years [...] Sign Reading Time Taken Comments Blood Pressure 130/61 06/10/2021 2:52 PM EDT Pulse 72 06/10/2021 2:52 PM EDT Temperature - - Respiratory Rate - - Oxygen Saturation - - Inhaled Oxygen Concentration - - Weight 112.5 kg (248 lb) 06/10/2021 2:52 PM EDT Height 165.1 cm (5' 5) 06/10/2021 2:52 PM EDT Body Mass Index 41.27 06/10/2021 2:52 PM EDT documented in this encounter Progress Notes * Karey De PA - 06/10/2021 3:30 PM EDT PATIENT NAME: Susan Whitney AGE: 51 y.o. MR#: [id number] DATE OF VISIT: 06/10/2021 CHIEF COMPLAINT: 6 month check 12/01/20 (Gael) LEFT YEE 2 screws, Lateralizing closing wedge osteotomyof the calcaneous ?? HISTORY OF PRESENT ILLNESS: Ms. Whitney is a 51 y.o. female who comes into clinic today for evaluation of the LEFT ankle. The PT was last in to see myself on 04/01/2021 . Since this visit things have been going ok. She has had an increase in pain in the heel. She has to walk on her toes in the morning. She feels that she has a rope around the the arch and is being pulled on. If feels as if she is standing on a marble. Past medical history: Patient Active Problem List Diagnosis Date Noted ??? 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 Arthritis of left ankle 10/13/2020 ??? Left foot pain 10/14/2015 Medications: ??? acetaminophen (Tylenol) 500 mg Tablet ??? gabapentin (Neurontin) 300 mg Capsule ??? albuteroL 90 mcg/actuation HFA Aerosol Inhaler ??? multivitamin Capsule ??? ibuprofen (ADVIL;MOTRIN) 600 mg Tablet ??? aspirin EC 81 mg Tablet, Delayed Release (E.C.) ??? loratadine (Claritin) 10 mg Tablet ??? melatonin 1 mg Tablet Allergies: Allergies [...] Use Topics ??? Alcohol use: Yes Comment: rarely Review of systems: No chest pain or shortness of breath No fevers, night sweats or chills Vital signs: Visit Vitals BP 130/61 Pulse 72 Ht 165.1 cm (5' 5) Wt 112.5 kg (248 lb) BMI 41.27 kg/m?? Physical exam: Ms. Whitney is a 51 y.o. female who is alert and oriented. She is in no acute discomfort and is resting comfortably in the exam room. Incision is well healed. Full ankle ROM TTP plantar aspect of calc and to a lesser extent along the fascia. PT/DP pulses 2+. Superficial peroneal, deep peroneal, sural, saphenous, and tibial nerves intact totouch. XR images show healed calcaneal osteotomy. Assessment and plan:: 51 y.o. year-old female 6 month check 12/01/20 (Gael) LEFT YEE 2 screws, Lateralizing closing wedge osteotomy of the calcaneous with well healed scar, doing well. XR images show XR images show healed calcaneal osteotomy. Clinically she is tender over the plantar fascia. We discussed treatment options for plantar fasciitis. These include night splint, formal PT. Due to her upcoming ankle fusion surgery, I would not recommend cortisone injection into the fascia. She would like to treat this conservatively. I have written a formal PT referral as well as placed a DME for a night splint. This plan was discussed with the patient and they are in agreement. All of the patient's questions were answered. The patient understand to contact us if they have any other questions or concerns. FU: BOB De PA-C The above dictation was made with voice recogonition software documented in this encounter Plan of Treatment Upcoming Encounters Date Type Department Care Team (Late st Contact Info) Description 12/04/2023 8:00 AM EDT Office [place] [address] Cyn Murphy, PT [facility] PHYSICAL MEDICINE & [place] [address] 12/04/2023 10:45 AM EDT Appointment XRay at [address] [place] [address] 12/04/2023 11:40 AM EDT Office [place] [address] Jennifer Stanley [employer] CASING TIER OFF [facility] [address] Scheduled Referrals Name Type Priority Associated Diagnoses Orde r Schedule Referral to Physical Therapy Outpatient Referral Routine Plantar fasciitis Ordered: 06/10/2021 documented as of this encounter Visit Diagnoses Diagnosis Plantar fasciitis Plantar fascial fibromatosis documented in this encounter Care Teams Uniforms Sales Representative Relationship Specialty Start Date End Date Jennifer Suarez APRN [address] [place] [address] PCP - General Family Medicine 07/14/20 11/20/22 documented as of this encounter
--- OUTSIDE RECORDS SUMMARY | 2023-11-15 04:25 | XMS_ITS | Encounter Summary ---
Author Organization [facility] [place] [address] Care Team Providers Care Industrial Gas Production Operator Name Role Phone Jennifer Suarez APRN Primary Care Provider [phone] Reason for Visit * Reason Comments Pre-op Exam Encounter Details Date Type Department Care Team (Late st Contact Info) Description 10/25/2021 1:30 PM EDT Office Visit [place] [address] Francisco Maria MD [facility] [place] [address] Preop examination; Arthritis of left ankle; History [...] Sign Reading Time Taken Comments Blood Pressure 147/81 10/25/2021 1:16 PM EDT Pulse 64 10/25/2021 1:16 PM EDT Temperature - - Respiratory Rate - - Oxygen Saturation 99% 10/25/2021 1:16 PM EDT Inhaled Oxygen Concentration - - Weight 113.4 kg (250 lb) 10/25/2021 1:16 PM EDT Height 165.1 cm (5' 5) 10/25/2021 1:16 PM EDT Body Mass Index 41.6 10/25/2021 1:16 PM EDT documented in this encounter Progress Notes * Francisco Maria MD - 10/25/2021 1:30 PM EDT Images from the original note were not included. CC: Susan Whitney is a 51 y.o. female with the following problems and medications that is being seen in the clinic for consultation at the request of her surgeon Dr. Tio Mayo for preoperative riskstratification and management recommendations in anticipation of left total ankle arthroplasty for symptomatic OA. HPI - Pain - Location - left ankle, Quality - aching, Onset - gradual, Duration - several years Intensity - moderate to severe, Aggravating factors - standing, walking, stepping, bending, Alleviatingfactors - NSAID, APAP, rest, topical, Associated - had gastrectomy. Has lymphedema and that is muchbetter with compression wraps and stockings. Patient Active Problem List Diagnosis Code ??? Left foot pain M79.672 ??? Arthritis of left ankle M19.072 ??? 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 Edema of left lower leg R60.0 Current Outpatient Medications Medication Sig Dispense Refill ??? acetaminophen (Tylenol) 500 mg Tablet Take by mouth. ??? gabapentin (Neurontin) 300 mg Capsule Take by mouth as needed. ??? albuteroL 90 mcg/actuation HFA Aerosol Inhaler INHALE ONE TO TWO PUFFS BY MOUTH EVERY 4 TO 6 HOURS NEEDED ??? multivitamin Capsule Take 1 capsule by mouth daily. ??? melatonin 1 mg Tablet Take by mouth. ??? ibuprofen (ADVIL;MOTRIN) 600 mg Tablet Take 1 tablet by mouth every 6 hours as needed for Pain.30 tablet 0 ??? cholecalciferol, Vitamin D3, (cholecalciferol, Vitamin D3,) 50 mcg (2,000 unit) Capsule Take 2,000 Units by mouth daily. [id number] units prescribed ??? loratadine (Claritin) 10 mg Tablet Take 10 mg by mouth daily. No current facility-administered medications for this visit. Social History Occupational History ??? Not on file Tobacco Use ??? Smoking status: Never Smoker ??? Smokeless tobacco: Never Used Vaping Use ??? Vaping Use: Some days Substance and Sexual Activity ??? Alcohol use: Yes Comment: Rarely drink. At most Maybe 1 shot or 1 wine cooler a month ??? Drug use: No ??? Sexual activity: Yes Partners: Male Family History Problem Relation Age of Onset ??? Macular Degeneration Sister Review of Systems Constitutional: Negative for chills, diaphoresis and fever. Respiratory: Negative for cough, shortness of breath and wheezing. Cardiovascular: Negative for chest pain, palpitations and leg swelling. Gastrointestinal: Negative for abdominal pain, anal bleeding and blood in stool. Endocrine: Negative for polydipsia and polyphagia. Genitourinary: Negative for dysuria, flank pain and hematuria. Skin: Negative for pallor and rash. Allergic/Immunologic: Negative for environmental allergies and immunocompromised state. Neurological: Negative for syncope and speech difficulty. Hematological: Negative for adenopathy. Does not bruise/bleed easily. Psychiatric/Behavioral: Negative for confusion, decreased concentration and dysphoric mood. Allergies: Allergies Allergen Reactions ??? Latex Other [...] Vicodin [Hydrocodone-Acetaminophen] Hives Respiratory distress, swollen/itchy tongue Physical Exam: Last Set of Vitals and Range over past 24 hours: Last value Range last 24 hrs Heart Rate Heart Rate: 64 Heart Rate: [64] Blood Pressure BP: 147/81 BP: (147)/(81) SpO2 SpO2: 99 % SpO2: [99 %] Estimated body mass index is 41.6 kg/m?? as calculated from the following: Height as of this encounter: 165.1 cm (5' 5). Weight as of this encounter: 113.4 kg (250 lb). Physical Exam Constitutional: She is oriented to person, place, and time. She appears well- developed. No distress. HENT: Head: Normocephalic and atraumatic. Eyes: Right eye exhibits no discharge. Left eye exhibits no discharge. No scleral icterus. Neck: Neck supple. No JVD present. Cardiovascular: Normal rate, regular rhythm and normal heart sounds. Exam reveals no gallop and no friction rub. No murmur heard. Pulmonary/Chest: Effort normal and breath sounds normal. No stridor. No respiratory distress. She has no wheezes. She has no rales. She exhibits no spinal tenderness. Abdominal: Soft. Bowel sounds are normal. She exhibits no percussed HSM. There is no CVA tenderness. There is no rebound and no guarding. Musculoskeletal: She exhibits left more than right LE lymphedema with compressions stockings present. She has no aide iwht ambulation. Neurological: She is alert and oriented to person, place, and time. She displays no tremors at restor on intent. Skin: Skin is warm and dry. She is not diaphoretic. No pallor. Psychiatric: She has a normal mood and affect. Her behavior is normal. Judgment and thought contentnormal. Lab Results Component Value Date WBC 7.2 10/25/2021 RBC 4.75 10/25/2021 HGB 12.4 10/25/2021 HCT 39.3 10/25/2021 MCV 82.7 10/25/2021 MCH 26.1 (L) 10/25/2021 MCHC 31.6 (L) 10/25/2021 PLATELET 327 10/25/2021 RDWCV 14.3 (H) 10/25/2021 Lab Results Component Value Date NA 141 10/25/2021 K 4.1 10/25/2021 CL 104 10/25/2021 CO2 27 10/25/2021 BUN 18 10/25/2021 CREATININE 0.59 (L) 10/25/2021 GLUCOSE 96 10/25/2021 CALCIUM 9.4 10/25/2021 ESTGFR 108 10/25/2021 Estimated Creatinine Clearance: 138.6 mL/min (A) (based on SCr of 0.59 mg/dL (L)). Xray - OA left ankle A/P 1. Preop examination CBC (with Diff) Basic Metabolic Panel (non-fasting) 2. Arthritis of left ankle CBC (with Diff) Basic Metabolic Panel (non-fasting) 3. History of gastrectomy CBC (with Diff) Basic Metabolic Panel (non-fasting) With her sleeve gastrectomy status, I emphasized importance of appropriate vitamin D for optimal results of her TAA. Major Risk Factor per the Revised Cardiac Risk Index (Bold if present) - There is no history of CAD, CHF, CVA or TIA, DM2 on insulin, or a Creatinine >2 Risk diagnosis for MACE (major adverse cardiovascular event = Myocardial infarction, pulmonary edema, ventricular fibrillation, primary cardiac arrest, or complete heart block.) : Low <1% . 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 ARISCAT/CANET Score - estimates the risk of postoperative pulmonary complications as being low ~3.5%. Per the ACS NSQIP calculator I estimated the following. Patient instructions: Take vitamin D3 5678-6179 units daily until end of June. documented in this encounter Plan of Treatment Upcoming Encounters Date Type Department Care Team (Late st Contact Info) Description 12/04/2023 8:00 AM EDT Office Visit [place] [address] Cyn Murphy, PT [facility] PHYSICAL MEDICINE & [place] [address] 12/04/2023 10:45 AM EDT Appointment XRay at [address] [place] [address] 12/04/2023 11:40 AM EDT Office Visit [place] [address] Jennifer Stanley APRN [facility] [place] [address] documented as of this encounter Results * (ABNORMAL) Basic Metabolic Panel (non-fasting) (10/25/2021 2:51 PM EDT) Glucose 96 65 - 199 mg/dL [facility] Comment:Diabetes: >=200 mg/d L plus symptoms Blood Urea Nitrogen 18 8 - 18 mg/dL [facility] Creatinine 0.59(L) 0.70 - 1.20 mg/dL [facility] Sodium 141 135 - 145 mmol/L [facility] Potassium 4.1 3.5 - 5.0 mmol/L [facility] Comment: Please note: ??Patients with WBC >100,000 may have falsely elevated Potassium levels. ??For accurate Potassium quantification in these patients send serum separator tube (gold top) for subsequent determinations. ??Contact the Clinical Chemistry Laboratory if there are any questions. Chloride 104 98 - 107 mmol/L [facility] Carbon Dioxide 27 22 - 31 mmol/L [facility] Anion Gap 10 5 - 15 mmol/L [facility] Calcium 9.4 8.5 - 10.5 mg/dL [facility] Est Glomerular Filtration Rate 108 >=60 mL/min/1. 73 m?? [facility] Comment: This patient's estimated [...] Lab Francisco Maria MD CHEMISTRY ORDERAB LES [facility] [place] [address] documented in this encounter Visit Diagnoses Diagnosis Preop examination Preoperative examination, unspecified Arthritis of left ankle Unspecified arthropathy, ankle and foot History of gastrectomy Acquired absence of organ, stomach documented in this encounter Care Teams Industrial Gas Production Operator Relationship Specialty Start Date End Date Jennifer Suarez, PERIODONTIST [address] [place] [address] PCP - General Family Medicine 07/14/20 11/20/22 documented as of this encounter
--- OUTSIDE RECORDS SUMMARY | 2023-11-15 04:25 | XMS_ITS | Encounter Summary ---
Author Organization [facility] [place] [address] Care Team Providers Care Documentation Spec Name Role Phone Jennifer Suarez APRN Primary Care Provider [phone] Reason for Visit * Reason Comments Follow-up L TAA DOS: 2 (SATISH) Encounter Details Date Type Department Care Team (Late st Contact Info) Description 01/06/2022 4:00 PM EDT Office [place] [phone] Karey De PA [facility] [place] [address] Arthritis of left ankle Social History Tobacco [...] Sign Reading Time Taken Comments Blood Pressure 159/99 01/06/2022 3:37 PM EDT Pulse 115 01/06/2022 3:37 PM EDT Temperature - - Respiratory Rate - - Oxygen Saturation - - Inhaled Oxygen Concentration - - Weight 113.4 kg (250 lb) 01/06/2022 3:37 PM EDT Height 165.1 cm (5' 5) 01/06/2022 3:37 PM EDT Body Mass Index 41.6 01/06/2022 3:37 PM EDT documented in this encounter Progress Notes * Karey De PA - 01/06/2022 4:00 PM EDT PATIENT NAME: Susan Whitney AGE: 51 y.o. MR#: [id number] DATE OF VISIT: 01/06/2022 CHIEF COMPLAINT: 6 week check post 11/21/21 (Satish) LEFT total ankle arthroplasty HISTORY OF PRESENT ILLNESS: Ms. Whitney is a 51 y.o. female who comes into clinic today for evaluation of the LEFT ankle. The PT was last in to see myself on 12/06/2021 . Since this visit She has been doing pretty well. She is able to bend her toes now. The first couple of days that she tried to do this she had some bruising over the doorsal ab.s Thin incision when she has the boot on is extremely painful. She has been doing a lot of driving and did some lymphedema wraps to help with the swelling. She slept a couple of nights without the boot because the boot kept getting tangled up in the boot.Starting PT next Sunday. Has remained NWB on the extremity. Past medical history: Patient Active Problem List [...] 81 mg Tablet, Delayed Release (E.C.) ??? senna-docusate (Pericolace) 8.6-50 mg Tablet ??? ibuprofen (Advil) 600 mg Tablet ??? HYDROmorphone (Dilaudid) 2 mg Tablet ??? omeprazole (PriLOSEC OTC) 20 mg Tablet, Delayed Release (E.C.) ??? cholecalciferol, Vitamin D3, 50 mcg (2,000 unit) Capsule ??? gabapentin (Neurontin) 300 mg Capsule ??? albuteroL 90 mcg/actuation HFA Aerosol Inhaler ??? multivitamin Capsule Allergies: Allergies Allergen Reactions ??? Latex Other [...] or chills Vital signs: Visit Vitals BP (!) 159/99 Pulse (!) 115 Ht 165.1 cm (5' 5) Wt 113.4 kg (250 lb) BMI 41.60 kg/m?? Physical exam: Ms. Whitney is a 51 y.o. female who is alert and oriented. She is in no acute discomfort and is resting comfortably in the exam room. Incision is well healed Dorsiflexion 10 Plantarflexion 45 Calf is supple and non tender PT/DP pulses 2+. Superficial peroneal, deep peroneal, sural, saphenous, and tibial nerves intact totouch. . Imaging studies: XR images of the LEFT ankle were obtained showing ankle arthroplasty well placed. Assessment : 51 y.o. year-old female now roughly 6 weeks out post 11/21/21 (Satish) LEFT total ankle arthroplasty PLAN: We had a long discussion regarding the nature of Susan Whitney's healing. Clinical findings: Plantarflexion and dorsiflexion is normal. Incision is well healed. We discussedthat at this point she can discontinue the boot at night while sleeping. Continue with the PT referral provided. TOTAL ANKLE ARTHROPLASTY REHAB PROTOCOL 0-2 weeks [...] have any other questions or concerns. FU: 6 weeks with foot and ankle team with repeat images of the LEFT ankle, ordered. Karey De PA-C The above dictation was made with voice recogonition software documented in this encounter Plan of Treatment Upcoming Encounters Date Type Department Care Team (Late st Contact Info) Description 12/04/2023 8:00 AM EDT Office [place] [phone] Cyn Murphy, PT [facility] PHYSICAL MEDICINE & [place] [address] 12/04/2023 10:45 AM EDT Appointment XRay at [address] [place] [phone] 12/04/2023 11:40 AM EDT Office [place] [phone] Jennifer Stanley, LATRINE CLEANER [facility] [place] [address] documented as of this encounter Results * [...] who have questions please contact the health career discovery teacher that requested your imaging first. ? Narrative 02/21/2022 2:16 PM EST EXAMINATION: XR [...] patients who have questions please contactthe health career discovery teacher that requested your imaging first. Electronically signed by: Deb Michelle MD, [facility]([phone]), at 02/21/2022 2:16 PM Iris Jackson MD IMG DX ORDERABLES documented in this encounter Visit Diagnoses Diagnosis Arthritis of left ankle Unspecified arthropathy, ankle and foot Arthritis of left ankle Unspecified arthropathy, ankle and foot documented in this encounter Care Teams Documentation Spec Relationship Specialty Start Date End Date Jennifer Suarez, ROMINA [address] [place] [address] PCP - General Family Medicine 07/14/20 11/20/22 documented as of this encounter
--- OUTSIDE RECORDS SUMMARY | 2023-11-15 04:25 | XMS_ITS | Encounter Summary ---
[place] [address] Care Team Providers Care Spiral Winding Machine Helper Name Role Phone Jennifer Suarez APRN Primary Care Provider [phone] Reason for Referral * Diagnostic Test (Routine) - Closed Specialty Diagnoses / Procedures Referred By Contac t Referred To Contact Radiology Diagnoses Arthritis of left ankle Procedures CT Ankle wo Contrast Left (Generic) Tio Mayo MD [facility] [place] [address] [facility] [place] [address] Referral ID Status Reason Start Date Expiration Date V isits Requested Visits Authorized [id number] Closed Specialty Service Requested 04/20/2021 10/18/2022 1 1 Reason for Visit * Diagnostic Test (Routine) - Closed Specialty Diagnoses / Procedures Referred By Contac t Referred To Contact Radiology Diagnoses Arthritis of left ankle Procedures CT Ankle wo Contrast Left (Generic) Tio Mayo MD [facility] [place] [address] [facility] [place] [address] Referral ID Status Reason Start Date Expiration Date V isits Requested Visits Authorized [id number] Closed Specialty Service Requested 04/20/2021 10/18/2022 1 1 Encounter Details Date Type Department Care Team (Latest Contact Info) Description 06/10/2021 1:12 PM EDT - 06/10/2021 2:14 PM EDT Hospital Encounter CT Scan at [facility] [place] [address] Tio Mayo MD [facility] [place] [address] Arthritis of left ankle Discharge Disposition: Home [...] AM EDT Office [place] [phone] Cyn Murphy, PT [facility] PHYSICAL MEDICINE & [place] [address] 12/04/2023 10:45 AM EDT Appointment XRay at [address] [place] [address] 12/04/2023 11:40 AM EDT Office [place] [phone] Jennifer Stanley, MANAGER BENCH [facility] [place] [address] documented as of this encounter Procedures Procedure Name Priority Date/Time Associated Diagnosis Comments CT ANKLE WO CONTRAST LEFT Routine 06/10/2021 1:41 PM EDT Arthritis of left ankle documented in this encounter Results * CT Ankle wo Contrast Left (Generic) (06/10/2021 1:41 PM EDT) Anatomical Region Laterality Modality Ankle Left Computed Tomogra phy 06/10/2021 1:55 PM EDT Impressions 06/10/2021 2:01 PM EDT Images obtained for surgical planning. Thank you for letting us participate in the care of this patient. ??If you are a health care provider and have any questions regarding this report, please contact the number below. ??For patients who have questions please contact the health customer care representative that requested your imaging first. ? Narrative 06/10/2021 2:01 PM EDT EXAMINATION: CT ANKLE WO CONTRAST LEFT (GENERIC) CLINICAL HISTORY: preo planning TECHNIQUE: Examination performed for preoperative planning. The study includes axial images of the LEFT ankle per protocol. COMPARISON: Radiographs, April 01, 2021 FINDINGS: LEFT ANKLE: No ankle effusion, fracture or displaced tendons. Calcaneus-healed calcaneal osteotomy stabilized by 2 screws. There are diffuse osteophytes Joints * ??Tibiotalar joint-diffuse osteophytes and no large effusion. * ??Subtalar joint-Solid fusion of both medial and posterior subtalar joints. * ??Talonavicular joint-eccentric joint space narrowing osteophyte formation. Small bipartite accessory navicular bone is present. Procedure Note Deb Michelle MD - 06/10/2021 EXAMINATION: CT ANKLE WO CONTRAST LEFT (GENERIC) CLINICAL HISTORY: preo planning TECHNIQUE: Examination performed for preoperative planning. The studyincludes axial images of the LEFT ankle per protocol. COMPARISON: Radiographs, April 01, 2021 FINDINGS: LEFT ANKLE: No ankle effusion, fracture or displaced tendons. Calcaneus-healed calcaneal osteotomy stabilized by 2 screws. There arediffuse osteophytes Joints * Tibiotalar joint-diffuse osteophytes and no large effusion. * Subtalar joint-Solid fusion of both medial and posterior subtalarjoints. * Talonavicular joint-eccentric joint space narrowing osteophyteformation. Small bipartite accessory navicular bone is present. IMPRESSION Images obtained for surgical planning. Thank you for letting us participate in the care of this patient. If youare a health care provider and have any questions regarding this report,please contact the number below. For patients who have questions please contactthe health customer care representative that requested your imaging first. Tio Mayo MD IMG CT ORDERABLES documented in this encounter Visit Diagnoses Diagnosis Arthritis of left ankle Unspecified arthropathy, ankle and foot documented in this encounter Care Teams Spiral Winding Machine Helper Relationship Specialty Start Date End Date Jennifer Suarez, ROMINA [address] [place] [address] PCP - General Family Medicine 07/14/20 11/20/22 documented as of this encounter
--- OUTSIDE RECORDS SUMMARY | 2023-11-15 04:25 | XMS_ITS | Encounter Summary ---
[place] [address] Care Team Providers Care Molder Foam Rubber Name Role Phone Jennifer Suarez APRN Primary Care Provider [phone] Reason for Visit * Auth/Cert Specialty Diagnoses / Procedures Referred By Cheri silverman Referred To Contact Diagnoses Varus deformity, not elsewhere classified, left ankle Primary osteoarthritis, left ankle and foot Left ankle arthritis Procedures PRO ARTHROPLASTY ANKLE WITH IMPLANT TOTAL ANKLE ARTHROPLASTY (WRVU 14.42) Tio Covarrubias MD [facility] [place] [address] [facility] Referral ID Status Reason Start Date Expiration Date Visits Re quested Visits Authorized [id number] 1 1 Encounter Details Date Type Department Care Team (Late st Contact Info) Description 11/21/2021 7:30 AM EDT - 11/21/2021 11:13 AM EDT Surgery [place] [address] Tio Covarrubias MD [facility] ORTHOPAEDIC SURGERY [place], [place] [phone] TOTAL ANKLE ARTHROPLASTY (WRVU 14.42) Social History Tobacco Use Types Packs/Day Years [...] Sign Reading Time Taken Comments Blood Pressure 139/78 11/21/2021 11:00 AM EDT Pulse 57 11/21/2021 11:00 AM EDT Temperature 37 ??C (98.6 ??F) 11/21/2021 11:00 AM EDT Respiratory Rate 12 11/21/2021 11:00 AM EDT Oxygen Saturation 98% 11/21/2021 11:00 AM EDT Inhaled Oxygen Concentration - - Weight - - Height - - Body Mass Index - - documented in this encounter Discharge Summaries * Kat Mo, SALES DEMONSTRATOR - 11/21/2021 4:41 PM EDT Discharge Summary Patient Name: Susan Whitney Patient Age: 51 y.o. Language: Persian Race: White Ethnicity: Not nor Admit date: 11/21/2021 Discharge date and time: 11/22/2021 Attending Physician: Tio Covarrubias MD Discharge Physician: Tio Covarrubias MD Follow-up Recommendations for Providers: See discharge instructions for additional details. Future Appointments Date Time Provider Department Center 12/06/2021 11:00 AM [facility] DX ROOM 2 Xray [facility] Rad 12/06/2021 11:30 AM Karey De PA [facility] ORTH 3C [facility] Inpatient Provider Contact Information: Tio Covarrubias MD Orthopedics: [phone] After hours and weekends, call [facility] [employer], , and have the Orthopedic resident paged. [...] Hospitalization: Immunization History Administered Date(s) Administered ??? [id number] Covid-19 Vaccine 01/07/2021 ??? Tdap Vaccine 05/09/2016 [...] Cap Take 2,000 Units by mouth daily. 1403-6073 units prescribed 2,000 Units Refills: 0 gabapentin [...] as much as possible. Call your doctor ([phone]) if you develop: 1. Fever greater than 100.5 2. Severe nausea or vomiting 3. Increasing pain that is not controlled by pain medications 4. Increasing redness, swelling, or drainage from incisions 5. Change in sensation FOLLOW-UP APPOINTMENTS: 1. You will have follow-up appointments at [facility] as indicated below in Future Appointment and Orders. 2. You will need to have x-rays prior to your follow-up appointment listed below. Please come to Radiology, desk , 1 hour BEFORE that appointment for these x-rays. Future Appointments Date Time Provider Department Center 12/06/2021 11:00 AM [facility] DX ROOM 2 Xray [facility] Rad 12/06/2021 11:30 AM Karey De PA [facility] ORTH 3C [facility] If you have questions or concerns: Sunday through Sunday, 8 AM - 5 PM, please call Dr. Tio Covarrubias MD's office at . If it is after 5 PM, the weekend, or holidays, please call and ask to speak with theOrthopedic resident on-call. General Instructions None Future Appointments and Orders Future Appointments and Orders Future Appointments Provider Department Dept Phone 12/06/2021 11:00 AM [facility] DX ROOM 2 XRay at [facility] Arrive at: Marketing Administrator Area [phone] Please go to Marketing Administrator Area ([facility]). 12/06/2021 11:30 AM Karey De PA Orthopaedics at [facility] Arrive at: Marketing Administrator Area [phone] Primary Care Provider: Jennifer Suarez APRN [phone] Discharge References/Attachments None documented in this encounter [...] as much as possible. Call your doctor ([phone]) if you develop: Fever greater than 100.5 Severe nausea or vomiting Increasing pain that is not controlled by pain medications Increasing redness, swelling, or drainage from incisions Change in sensation FOLLOW-UP APPOINTMENTS: 1. You will have follow-up appointments at [facility] as indicated below in Future Appointment and Orders. 2. You will need to have x-rays prior to your follow-up appointment listed below. Please come to Radiology, desk 3T, 1 hour BEFORE that appointment for these x-rays. Future Appointments Date Time Provider Department Center 12/06/2021 11:00 AM [facility] DX ROOM 2 MH Xray [facility] Rad 12/06/2021 11:30 AM Karey De PA [facility] ORTH 3C [facility] If you have questions or concerns: Sunday [...] Capsule Take 2,000 Units by mouth daily. 5563-3959 units prescribed albuteroL 90 mcg/actuation HFA Aerosol [...] Hannah MD PGY-4 Anesthesiology Regional Block Team #[id number] * Anibal Miles RN - 11/22/2021 3:29 PM EDT [facility] Short Stay Unit Discharge Note [...] been discharged without VNA services. * Prasanna Perez OT - 11/22/2021 12:48 PM EDT OCCUPATIONAL THERAPY 11/22/21 1246 Evaluation & Treatment Document Type contact Total Minutes, Occupational Therapy 0 Treatment Date 08/30/22 Comment, Session Not Performed Order received and [...] SpO2 98 % Prasanna Perez, OT Pager: [phone] * FaisonChrisNika Daily, PT - 11/22/2021 12:14 PM EDT Physical [...] pac???s as noted on holter 01/2020 at [facility] , mild and occasional ??? Post-operative nausea and vomiting Last 2 uneventful, most recent here at [facility], see surigical notes from 12/01/20 Past Surgical History: Procedure Laterality Date ??? SECTION ??? ECTOPIC SURGERY x 2 ??? ORTHOPEDIC SURGERY ??? PRO ARTHROPLASTY ANKLE WITH IMPLANT Left 11/21/2021 TOTAL ANKLE ARTHROPLASTY (WRVU 14.42) performed by Tio Covarrubias MD at [facility] MAIN OR ??? PRO OSTEOTOMY HEEL BONE Left 12/01/2020 OSTEOTOMY, CALCANEUS (WRVU 9.73) performed by Tio Covarrubias MD at [facility] MAIN OR ??? PRO REMOVAL DEEP IMPLANT Left 12/01/2020 REMOVAL OF IMPLANT, DEEP, FOOT (WRVU 5.96) performed by Tio Covarrubias MD at [facility] MAIN OR ??? TUBAL LIGATION ??? 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 Equipment at home: bathroom equipment as [...] least 2+/5, biceps 5/5, triceps 5/5, good electrical systems drafter - RLE- hip abduction at least 2+/5, [...] assistive devices, and her online rehab program ([employer]). Based on current presentation, recommend patient discharge [...] IN / OUT: First session:; Second Session: 0305-8102 Total Minutes, Physical Therapy: 44 Billing Code: mod ev, TEF Collette Nuñez , [facility] Physical Therapy Inpatient Rehabilitation Department Patient status, treatment interventions, and goals discussed with student. I am in agreement with all details and associated flowsheet rows as documented and was present for all aspects of the patient treatment session. NIKA LARES, PT Pager # [phone] * Ad, Kartik Mcclure MD - 11/22/2021 [...] PT with f/u in 2 wks as scheudled. Activity: NWB LLE SLS Closure: Sutures (to be removed at Orthopaedic follow-up appointment) Dressing: Short leg splint Anticoagulation: ASA 81 mg BID for 30 days Antibiotics: periop ancef Consults: PT/OT Dispo: pending PT/OT eval Follow-up: scheduled Kartik Duong MD 11/22/2021 Future Appointments Date Time Provider Department Center 12/06/2021 11:00 AM [facility] DX ROOM 2 Xray [facility] Rad 12/06/2021 11:30 AM Karey De PA [facility] ORTH 3C [facility] * Freddie Walker MD - 11/21/2021 10:22 [...] Time Provider Department Center 12/06/2021 11:00 AM [facility] DX ROOM 2 Xray [facility] Rad 12/06/2021 11:30 AM Karey De PA [facility] ORTH 3C [facility] * Bianca Rizo RN - 11/21/2021 10:09 [...] planning on spending the night in the [facility]. Tio Covarrubias MD [place] Orthopaedic Surgery Attending documented in this encounter Miscellaneous Notes * Op Note - Tio Covarrubias MD - 11/21/2021 7:53 AM EDT [facility] Operative Note Patient Name: Susan Whitney : [id number] MR#: [id number] Case Date: 11/21/2021 Surgeon: Surgeon(s) and Role: [...] Implant Name Type Inv. Item Serial No. Unloader Lot No. LRB No. Used Action infinity adaptis tibial tray size 3 material [id number] Left 1 Implanted COMPONENT TALAR ANKLE JOINT SZ 2 INFINITY ADAPTIS ([id number]) - [id number] IMPLANTS COMPONENT TALAR ANKLE JOINT SZ 2 INFINITY ADAPTIS ([id number]) [employer] [facility] - [id number] Left 1 Implanted infinity everlast cross-linked poly insert size 2+ h:8mm [id number] Left 1 Implanted Description of procedure: After [...] checked its depth. We used a lamina quality control engineer to anchor the tibial trial and then [...] tibial baseplate and put it on the assistant hairstylist. We lined up the pegs and used [...] AM EDT Office [place] [address] Cyn Murphy, PT [facility] PHYSICAL MEDICINE & [place] [address] 12/04/2023 10:45 AM EDT Appointment XRay at [address] [place] [address] 12/04/2023 11:40 AM EDT Office [place] [phone] Jennifer Stanley, SALES DEMONSTRATOR [facility] [place] [address] documented as of this encounter Procedures Procedure Name Priority Date/Time Associated Diagnosis Comments XR FLUORO NO RAD <1HR - OR USE Routine 11/21/2021 9:23 AM EDT Arthroplasty Ankle With Implant (86052) 11/21/2021 7:23 AM EDT Left ankle arthritis [...] RDR/RSLT documented in this encounter Visit Diagnoses Not on filedocumented in this encounter Admitting Diagnoses Diagnosis History [...] Given 11/21/2021 1:53 PM EDT 17 g povidone-iodine (Betadine Ophthalmic Prep) 5 % ophthalmic solution ONCE PRN, Starting on Sun11/21/21 at 0757, Until Sun11/22/21 at 1730, Intra-Operative (Intra-Procedure), Routine Given 11/21/2021 7:57 AM EDT 30 mLs 19- Surgical Site scopolamine (Transderm Scop) 1 mg over 3 [...] Routine 1352 (Given - Provider: Melinda Thomas RN)2129 (Given - Provider: Lexie Anthony RN) 0527 (Given - Provider: Freddie Vargas LPN)1401 (Given - Provider: Anibal Miles RN) aspirin EC tablet 81 mg 81 mg, Oral, 2 TIMES DAILY, First dose on Sun11/21/21 at 1315, Until Discontinued, Routine 1352 (Given - Provider: Melinda Thomas RN)2006 (Given - Provider: Lexie Anthony RN) 0845 (Given - Provider: Anibal Miles RN) ceFAZolin (Ancef) 2 g vial attach to [...] RN) 0357 (New Bag - Provider: Lexie Anthony, JOSHUA)0427 (Stopped - Provider: Lexie Anthony RN) pantoprazole [...] Routine 1353 (Given - Provider: Melinda Thomas RN)2099 (Not Given - Provider: Lexie Anthony RN - Reason: Patient/family refused) 0845 (Given - Provider: Anibal Miles, JOSHUA) scopolamine (Transderm Scop) 1 mg over 3 days patch 1 patch (COMPLETED) 1 patch, Transdermal, ONCE, 1 dose, On Sun11/21/21 at 0700, Day of Surgery (Day of Procedure), Routine 0700 (Patch Applied - Provider: Edith Rojas, JOSHUA) scopolamine (TRANSDERM-SCOP) 1 mg patch Patch Removal [...] Bianca Rizo RN)1027 (Given - Provider: Bianca Rizo RN) HYDROmorphone (Dilaudid) tablet 2-4 mg 2-4 mg, Oral, EVERY 4 HOURS PRN, Starting on Sun11/22/21 at 1252, Until Sun11/22/21 at 1730, Pain, Mild to moderate pain (2-5) take 2 mg, moderate to severe pain (6-10) take 4 mg., Routine 1402 (Given - Provid er: Anibal Miles, JOSHUA) ketorolac (Toradol) (30 mg/mL) injection 15 mg 15 mg, Intravenous, EVERY 6 HOURS PRN, Starting on Sun11/21/21 at 1025, Until Sun11/22/21 at 1730, Pain, Routine 1030 (Given - Provider: Bianca Rizo, JOSHUA)1639 (Given - Provider: Melinda Thomas, JOSHUA) 0849 (Given - Provider: Anibal Miles, JOSHUA) [...] Routine documented in this encounter Care Teams Molder Foam Rubber Relationship Specialty Start Date End Date Jennifer Suarez APRN [address] [place] [address] PCP - General Family Medicine 07/14/20 11/20/22 documented as of this encounter
--- OUTSIDE RECORDS SUMMARY | 2023-11-15 04:25 | XMS_ITS | Encounter Summary ---
Author Organization [facility] Address [facility] [place] [address] Care Team Providers Care Brim Shaper Name Role Phone Jennifer Suarez APRN Primary Care Provider [phone] Encounter Details Date Type Department Care Team (Latest Contact Info) Description 12/06/2021 10:46 AM EDT - 12/06/2021 11:59 PM EDT Hospital Encounter XRay at [address] [place] [address] Tio Mayo MD [facility] [place] [address] Arthritis of left ankle Discharge Disposition: Home [...] Capsule Take 2,000 Units by mouth daily. 3661-2473 units prescribed albuteroL 90 mcg/actuation HFA Aerosol Inhaler INHALE ONE TO TWO PUFFS BY MOUTH EVERY 4 TO 6 HOURS NEEDED 06/10/2020 multivitamin Capsule Take 1 capsule by mouth daily. aspirin EC 81 mg Tablet, Delayed Release (E.C.) Take 1 tablet by mouth 2 times daily. Take with food for 30 days after surgery. Last day = 12/21/21. 11/22/2021 11/21/2022 senna-docusate (Pericolace) 8.6-50 mg Tablet Take 2 [...] AM EDT Office [place] [address] Cyn Murphy, PT [facility] PHYSICAL MEDICINE & [place] [address] 12/04/2023 10:45 AM EDT Appointment XRay at [address] [place] [address] 12/04/2023 11:40 AM EDT Office [place] [address] Jennifer Stanley APRN [facility] [place] [address] documented as of this encounter Procedures Procedure Name Priority Date/Time Associated Diagnosis Comments XR ANKLE MIN 3 VIEWS LEFT Routine 12/06/2021 11:03 AM EDT Arthritis of left ankle documented in this encounter Results * XR Ankle Min 3 views Left (Generic) (12/06/2021 11:03 AM EDT) Anatomical Region Laterality Modality Ankle Left Digital Radiogra phy Impressions 12/06/2021 1:19 PM EDT Uncomplicated left ankle arthroplasty. Thank you for letting us participate in the care of this patient. ??If you are a health care provider and have any questions regarding this report, please contact the number below. ??For patients who have questions please contact the health auto care center manager that requested your imaging first. ? Narrative 12/06/2021 1:19 PM EDT EXAMINATION: XR ANKLE MIN 3 VIEWS LEFT (GENERIC) CLINICAL HISTORY: History of Total Ankle TECHNIQUE: 3 views LEFT ankle COMPARISON: Left foot radiographs 06/10/2021 FINDINGS: Overlying cast obscures fine details. Status post left total ankle arthroplasty. Hardware is intact. No periprosthetic fracture or lucency. Healed calcaneal osteotomy with bone brent in unchanged position. Solid osseous fusion across the subtalar joint again noted. Small plantar and posterior calcaneal enthesophytes. Soft tissue details obscured by overlying cast. Procedure Note Megan Quarles MD - 12/06/2021 EXAMINATION: XR ANKLE MIN 3 VIEWS LEFT (GENERIC) CLINICAL HISTORY: History of Total Ankle TECHNIQUE: 3 views LEFT ankle COMPARISON: Left foot radiographs 06/10/2021 FINDINGS: Overlying cast obscures fine details. Status post left total ankle arthroplasty. Hardware is intact. Noperiprosthetic fracture or lucency. Healed calcaneal osteotomy with bone brent inunchanged position. Solid osseous fusion across the subtalar joint again noted.Small plantar and posterior calcaneal enthesophytes. Soft tissue detailsobscured by overlying cast. IMPRESSION Uncomplicated left ankle arthroplasty. Thank you for letting us participate in the care of this patient. If youare a health care provider and have any questions regarding this report,please contact the number below. For patients who have questions please contactthe health auto care center manager that requested your imaging first. Tio Mayo MD IMG DX ORDERABLES documented in this encounter Visit Diagnoses Diagnosis Arthritis of left ankle Unspecified arthropathy, ankle and foot documented in this encounter Care Teams Brim Shaper Relationship Specialty Start Date End Date Jennifer Suarez, ROMINA [address] [facility] [place] [place] [address] PCP - General Family Medicine 07/14/20 11/20/22 documented as of this encounter
--- OUTSIDE RECORDS SUMMARY | 2023-11-15 04:25 | XMS_ITS | Encounter Summary ---
Author [place] [address] Care Team Providers Care Head Girls Golf Coach Name Role Phone Jennifer Suarez APRN Primary Care Provider [phone] Reason for Visit * Reason Comments Cellulitis Encounter Details Date Type Department Care Team (Late st Contact Info) Description 07/19/2021 12:55 PM EDT - 07/19/2021 3:05 PM EDT [place] [address] Angie Saunders MD [facility] [place] [address] Jenna Rosa MD [facility] [place] [address] Edema of lower extremity (Primary Dx) Discharge Disposition: Home Social History Tobacco Use [...] Sign Reading Time Taken Comments Blood Pressure 138/71 07/19/2021 2:44 PM EDT Pulse 70 07/19/2021 3:03 PM EDT Temperature 36.8 ??C (98.3 ??F) 07/19/2021 12:40 PM E DT Respiratory Rate 18 07/19/2021 12:40 PM EDT Oxygen Saturation 99% 07/19/2021 2:44 PM EDT Inhaled Oxygen Concentration - - Weight 112.5 kg (248 lb) 07/19/2021 12:40 PM EDT Height - - Body Mass Index 41.27 06/10/2021 2:52 PM EDT documented in this encounter Discharge Instructions * Discharge Instructions* Laila Clemons MD - 07/19/2021 2:51 PM EDT You were evaluated at the emergency room today due to persistent swelling and pain in your left legsince beginning antibiotics for cellulitis. You had a reassuring workup including a DVT ultrasound which was negative for DVT in the veins of your left upper leg and behind her knee. Suspect that your continued edema and pain will improve with completion of prescribed course of Keflex. Recommend that you continue taking this for the full 10 day course. Follow-up with your primary care if you do not experience improvement over the next several days, however suspect that you should continue to improve with continuation of antibiotics. Return to the emergency room for any concerns you may have, specifically if you develop shortness of breath, passed out, developed a fever or have any episodes of chest pain, or for any other concerns. documented in this encounter Medications at Time [...] while taking ibuprofen 30 tablet 11/22/2021 01/06/2022 cephALEXin (Keflex) 500 mg Capsule Take 1 capsule by mouth 4 times daily for 10 days. 40 capsule 07/16/2021 07/26/2021 aspirin EC 81 mg Tablet, Delayed Release [...] 10/14/2015 11/22/2021 documented as of this encounter ED Notes * Laila Clemons MD - 07/19/2021 2:26 PM EDT ED Resident Note HPI: Too Baez is a 51 y.o. female who was seen in the ED on 07/16 four left lower extremity erythema, edema and pain from the ankle to the mid calf discharged on Ke for cellulitis who presents tot Emergency Department due to persistent swelling in her left lower extremity, despite not missing any doses of antibiotics. Patient notes she continues to have some discomfort in the left lower extremity, and persistent swelling which is largely unchanged from last time she was seen. She notes that there was some mild erythema this morning, however this is now resolved. She denies subjective fevers, nausea, abdominal pain. She notes subjective chills last night which have since resolved. She has no history of DVT/PE, no family history of clotting disorders, no personal history of malignancy, and also denies recent air travel or prolonged immobility, and her last surgical procedure was in November. Pt was seen under the supervision of an attending physician. ROS: Pertinent positives and negatives are included in the HPI, otherwise at least ten systems were reviewed and negative. Past Medical and Surgical Histories, Social History, Medications, Allergies were reviewed in the chart. Vitals: ED Triage Vitals [07/19/21 1240] BP: (!) 154/97 Heart Rate: 74 Resp: 18 Temp: 36.8 ??C (98.3 ??F) Temp src: Temporal SpO2: 97 % O2 Device: RA O2 Flow Rate (L/min): 0 L/min Physical Exam Vitals and nursing note reviewed. Constitutional: General: She is not in acute distress. Appearance: Normal appearance. She is obese. She is not diaphoretic. Comments: Well appearing female in no apparent distress HENT: Head: Normocephalic and atraumatic. Eyes: Extraocular Movements: Extraocular movements intact. Conjunctiva/sclera: Conjunctivae normal. Cardiovascular: Rate and Rhythm: Normal rate and regular rhythm. Pulses: Normal pulses. Heart sounds: Normal heart sounds. Pulmonary: Effort: Pulmonary effort is normal. No respiratory distress. Breath sounds: Normal breath sounds. Abdominal: General: There is no distension. Palpations: Abdomen is soft. Tenderness: There is no abdominal tenderness. There is no guarding. Musculoskeletal: General: Tenderness (Tenderness to palpation of edematous area and left calf. ) present. Right lower leg: No edema. Left lower leg: Edema (Present from ankle to mid calf) present. Comments: No palpable cords, no TTP popliteal fossa or superior left calf or left knee. Normal ROM,strength and sensation LLE. Skin: General: Skin is warm and dry. Comments: There is no erythema appreciated on the left lower extremity. Faint marking pen lines from prior erythematous area visible from ankle to mid calf, circumscribing area of edema, however there is no erythema present. Neurological: Mental Status: She is alert and oriented to person, place, and time. Mental status is at baseline. ED Course: - LLE Duplex Ultrasound: negative for femoral or popliteal DVT. Calf veins patent but not adequately visualized due to body habitus. Assessment and Plan: 51 y.o. female currently on day 3 of 10 of Keflex for left lower extremity cellulitis diagnosed on 07/16, who presents today due to persistent edema and discomfort in the left lower extremity in the setting of resolution of erythema. Outpatient providers are concerned about DVT, and patient is concerned about persistent edema and pain. She is very well appearing, hemodynamically stable, with left lower extremity circumferential edema from the left ankle joint to the mid calf without associated erythema. Due to concern about DVT, in the setting of continued and largely unchanged edema and discomfort inthe left lower extremity, although there is no edema of the left foot, and edema starts at the ankle joint, and has not worsened since beginning antibiotics three days ago, obtained left lower extremity duplex, which was negative for DVT, however there was limited visualization of the calf veins due to body habitus, however what was visualized showed patent Veins. Given this reassuring finding, suspect that patient's symptoms are consistent with overall improved cellulitis, given resolution of erythema today, and suspect that patient's symptoms will continue to improve as she completes her 10 day course of Keflex. The visit findings, diagnosis, and care plan were discussed with the patient. The diagnosis and care plans discussions were outlined in the discharge instructions. The patient expressed understanding of the details of the visit, the return precautions and that she should return to the ER at any time for worsening symptoms, new symptoms, or other concerns. she agrees with thefollow- up plan. Laila Clemons MD Resident 07/19/21 [id number] Associated attestation - Angie Saunders MD - 07/20/2021 7:16 AM EDT ED ATTENDING ATTESTATION The patient was seen in conjunction with the resident physician. I have independently performed thekey portions of the history and physical exam. I have personally reviewed nursing notes, vital signs, and diagnostic studies including labs, imaging studies and EKGs. I have discussed the details of the case with the resident and agree with the assessment and plan as described in the resident's note, unless stated otherwise in my separate note. Did this case involve critical care? No * Rigoberto Gregorio MD - 07/19/2021 12:38 PM EDT Telehealth Nhabdzlw-cu-Ousoyz Note: The following documentation is provided in my role as a TeleEmergency Physician and reflects a live audiovisual interaction. Brief HPI: Diagnosed with left leg cellulitis, on abx for past 4 days without improvement. Pt reports chills last night, no fevers. Brief Physical Exam: Vital signs reviewed General appearance: no acute distress, speaking clearly an appropriately Tests Ordered: pending further evaluation The patient is awaiting a bed in the Emergency Department. Rigoberto Gregorio MD 07/19/21 1242 documented in this encounter Miscellaneous Notes * ED Triage - Kristi Watkins RN - 07/19/2021 12:43 PM EDT Patient presents with concern for non-improving cellulitis in LLE. Has been taking PO antibiotics since Sunday. Endorses intermittent chills and nausea. A&Ox4. Skin P/W/D. Respirations even andunlabored. HPI (Adult) Stated Reason for Visit: I was diagnosed with cellulitis on Sunday, and they told me to come back if it didn't improve History Obtained From: patient documented in this encounter Plan of Treatment Upcoming Encounters Date Type Department Care Team (Late st Contact Info) Description 12/04/2023 8:00 AM EDT Office [place] [address] Cyn Murphy, PT [facility] PHYSICAL MEDICINE & [place] [address] 12/04/2023 10:45 AM EDT Appointment XRay at [address] [place] [address] 12/04/2023 11:40 AM EDT Office [place] [address] Jennifer Stanley, PRIME MINISTER [facility] [place] [address] documented as of this encounter Procedures Procedure Name Priority Date/Time Associated Diagnosis Comments DUPLEX FOR DVT, LEG, UNILAT STAT 07/19/2021 1:33 PM EDT Edema of lower extremity documented in this encounter Results * Duplex for DVT, Leg, Unilat (07/19/2021 1:33 PM EDT) VB Text Report Department: Vascular Surgery Lab Patient: [id number] (TOO BAEZ) CPT: [id number] Referring Physician: ANGIE SAUNDERS ?? Phone: Indications: Patient with left leg edema, ? DVT Findings: LEFT: Patent common femoral vein and popliteal vein with spontaneous, respirophasic Doppler waveforms that respond normally to augmentation maneuvers. The common femoral vein, saphenofemoral junction, femoral vein through the thigh and popliteal vein are fully compressible. Posterior tibial and peroneal veins are patent but were not adequately visualized due to patient body habitus to exclude non-occlusive thrombus. Interpretation: LEFT: No evidence of femoral or popliteal deep vein thrombus. Calf veins are patent but were not adequately visualized to exclude non-occlusive thrombus. Comparison: ??No previous study in our vascular lab database for comparison. Electronically Signed by: SOHEILA WHITE on 2021-07-19 03:44:49 PM VASCUBASE VB Text Report End of Report VASCUBASE 07/19/2021 1:33 PM EDT Angie Saunders MD VASCULAR ORDERABLE S VASCUBASE documented in this encounter Visit Diagnoses Diagnosis Edema of lower extremity- Primary Edema documented in this encounter Care Teams Head Girls Golf Coach Relationship Specialty Start Date End Date Jennifer Suarez, PRIME MINISTER [address] [place] [address] PCP - General Family Medicine 07/14/20 11/20/22 documented as of this encounter
--- OUTSIDE RECORDS SUMMARY | 2023-11-15 04:25 | XMS_ITS | Encounter Summary ---
Author Organization [facility] [place] [address] Care Team Providers Care Public Safety Police Name Role Phone Jennifer Suarez APRN Primary Care Provider [phone] Encounter Details Date Type Department Care Team (Late st Contact Info) Description 10/14/2021 Orders [place] [address] Tio Mayo MD [facility] [place] [address] Arthritis of left ankle Social History Tobacco [...] AM EDT Office [place] [address] Cyn Murphy, PT [facility] PHYSICAL MEDICINE & [place] [address] 12/04/2023 10:45 AM EDT Appointment XRay at [address] [place] [address] 12/04/2023 11:40 AM EDT Office [place] [address] Jennifer Stanley, ROMINA [facility] [place]THOPAEDIC [place] [address] documented as of this encounter Results * [...] who have questions please contact the health pet care associate that requested your imaging first. ? Narrative [...] patients who have questions please contactthe health pet care associate that requested your imaging first. Tio Mayo MD IMG DX ORDERABLES documented in this encounter Visit Diagnoses Diagnosis Arthritis of left ankle Unspecified arthropathy, ankle and foot Arthritis of left ankle Unspecified arthropathy, ankle and foot documented in this encounter Care Teams Public Safety Police Relationship Specialty Start Date End Date Jennifer Suarez APRN [address] [place] [address] PCP - General Family Medicine 07/14/20 11/20/22 documented as of this encounter
--- OUTSIDE RECORDS SUMMARY | 2023-11-15 04:25 | XMS_ITS | Encounter Summary ---
Author Organization [facility] Address [facility] [place] [address] Care Team Providers Care Fryer Line Helper Name Role Phone Jennifer Suarez APRN Primary Care Provider [phone] Reason for Visit * Reason Comments Follow Up Surgery s/p YEE L Foot DOS 0 12/01/2020 Encounter Details Date Type Department Care Team (Late st Contact Info) Description 04/01/2021 1:30 PM EST Office [place] [address] Karey De PA [facility] [place] [address] Acquired left hindfoot varus Social History Tobacco [...] Sign Reading Time Taken Comments Blood Pressure 135/80 04/01/2021 1:28 PM EST Pulse 72 04/01/2021 1:28 PM EST Temperature - - Respiratory Rate - - Oxygen Saturation - - Inhaled Oxygen Concentration - - Weight - - Height - - Body Mass Index - - documented in this encounter Progress Notes * Karey De PA - 04/01/2021 1:30 PM EST PATIENT NAME: Susan Whitney AGE: 51 y.o. MR#: [id number] DATE OF VISIT: 04/01/2021 CHIEF COMPLAINT: 4 month check 12/01/20 (Gael) LEFT YEE 2 screws, Lateralizing closing wedge osteotomyof the calcaneous ?? HISTORY OF PRESENT ILLNESS: Ms. Whitney is a 51 y.o. female who comes into clinic today for evaluation of the LEFT ankle. The PT was last in to see myself on 02/08/2021 . Since this visit she has been doing well. She is in normal footwear. She can be on her foot for roughly 20 minutes before needing to put her foot up. She is currently taking ibuprofen, tylenol as well as elevating the foot for pain control. She elevates the foot at bedtime. 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 She normally works from 5:00 am to 3:00 pm. She is up and down the entire day. Past medical history: Patient Active Problem List [...] or chills Vital signs: Visit Vitals BP 135/80 (BP Location (NBP): Left arm, Patient Position: Sitting, BP Cuff Sizes: Adult (25-34 cm)) Pulse 72 Physical exam: Ms. Whitney is a 51 y.o. female who is alert and oriented. She is in no acute discomfort and is resting comfortably in the exam room. Incision is well healed. Full ankle ROM PT/DP pulses 2+. Superficial peroneal, deep peroneal, sural, saphenous, and tibial nerves intact totouch. XR images show good fusion distally along the costotomy, however proximally I am able to appreciatelucency Assessment and plan:: 51 y.o. year-old female 4 months check 12/01/20 (Gael) LEFT YEE 2 screws, Lateralizing closing wedge osteotomy of the calcaneous with well healed scar, doing well. We had a long discussion regarding the nature of Susan Whitney's progress. Her incision looks great. She would like to return to work. I have written a return to work note with gradual progression back to work. XR images show good fusion distally along the costotomy, however proximally I am able to appreciatelucency This plan was discussed with the patient and they are in agreement. All of the patient's questions were answered. The patient understand to contact us if they have any other questions or concerns. FU: 2 months with Left foot xr ordered. Karey De PA-C The above dictation was made with voice recogonition software documented in this encounter Plan of Treatment Upcoming Encounters Date Type Department Care Team (Late st Contact Info) Description 12/04/2023 8:00 AM EDT Office [place] [address] Cyn Murphy, PT [facility] PHYSICAL MEDICINE & [place] [address] 12/04/2023 10:45 AM EDT Appointment XRay at [address] [place] [phone] 12/04/2023 11:40 AM EDT Office [place] [address] Jennifer Stanley, MAGNAFLUX OPERATOR [facility] [place] [address] documented as of this encounter Results * XR Foot Min 3 views Left (Generic) (06/10/2021 2:32 PM EDT) Anatomical Region Laterality Modality Foot Left Digital Radiogra phy Impressions 06/10/2021 4:01 PM EDT 1. ??No acute fracture. 2. ??Healed calcaneal osteotomy without hardware complications. 3. ??Osteoarthropathy of midfoot. 4. ??Subtalar joint fusion. 5. ??Tibiotalar joint osteoarthropathy. Thank you for letting us participate in the care of this patient. ??If you are a health care provider and have any questions regarding this report, please contact the number below. ??For patients who have questions please contact the health home care assistant that requested your imaging first. ? Narrative 06/10/2021 4:01 PM EDT EXAMINATION: XR FOOT MIN 3 VIEWS LEFT (GENERIC) CLINICAL HISTORY: 12/01/20 (Gael) LEFT YEE 2 screws, Lateralizing closing wedge osteotomy of the calcaneous, , entered by ordering service TECHNIQUE: LEFT foot 3 views, weightbearing COMPARISON: LEFT foot, March 2021. FINDINGS: Bones Calcaneus-healed osteotomy stabilized by 2 brent. The fracture line is now completely obliterated. There is pes planus. Joints Subtalar joint-obliterated joint spaces represent solid fusion. Tibiotalar joint-unchanged eccentric anterior joint space narrowing and adjacent soft tissue swelling. Naviculocuneiform joints-dorsal osteophytes and normal alignment Soft tissues No soft tissue air. Procedure Note Deb Michelle MD - 06/10/2021 EXAMINATION: XR FOOT MIN 3 VIEWS LEFT (GENERIC) CLINICAL HISTORY: 12/01/20 (Gael) LEFT YEE 2 screws, Lateralizing closingwedge osteotomy of the calcaneous, , entered by ordering service TECHNIQUE: LEFT foot 3 views, weightbearing COMPARISON: LEFT foot, March 2021. FINDINGS: Bones Calcaneus-healed osteotomy stabilized by 2 brent. The fracture line isnow completely obliterated. There is pes planus. Joints Subtalar joint-obliterated joint spaces represent solid fusion. Tibiotalar joint-unchanged eccentric anterior joint space narrowing andadjacent soft tissue swelling. Naviculocuneiform joints-dorsal osteophytes and normal alignment Soft tissues No soft tissue air. IMPRESSION 1. No acute fracture. 2. Healed calcaneal osteotomy without hardware complications. 3. Osteoarthropathy of midfoot. 4. Subtalar joint fusion. 5. Tibiotalar joint osteoarthropathy. Thank you for letting us participate in the care of this patient. If youare a health care provider and have any questions regarding this report,please contact the number below. For patients who have questions please contactthe health home care assistant that requested your imaging first. 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
--- OUTSIDE RECORDS SUMMARY | 2023-11-15 04:25 | XMS_ITS | Encounter Summary ---
[place] [address] Care Team Providers Care Stone Rigger Name Role Phone Jennifer Suarez APRN Primary Care Provider [phone] Encounter Details Date Type Department Care Team (Late st Contact Info) Description 09/01/2021 Telephone [place] [address] Sandra Weeks Social History Tobacco Use Types Packs/Day Years [...] encounter Miscellaneous Notes * Telephone Encounter - Sandra Weeks - 09/01/2021 7:42 AM EDT Faxed to Brianna @ [employer] #[phone] for ,PT received successful confirmation of 8 pages including cover page documented in this encounter Plan of Treatment Upcoming Encounters Date Type Department Care Team (Late st Contact Info) Description 12/04/2023 8:00 AM EDT Office [place] [address] Cyn Murphy, PT [facility] PHYSICAL MEDICINE & [place] [address] 12/04/2023 10:45 AM EDT Appointment XRay at [address] [place] [address] 12/04/2023 11:40 AM EDT Office Visit Orthopaedics at [facility], [place] [address] Jennifer Stanley, SCREW DRIVER OPERATOR [facility] ORTHOPAEDIC [place] [address] documented as of this encounter Visit Diagnoses Not on filedocumented in this encounter Care Teams Stone Rigger Relationship Specialty Start Date End Date Jennifer Suarez APRN [address] [place] [address] PCP - General Family Medicine 07/14/20 11/20/22 documented as of this encounter
--- OUTSIDE RECORDS SUMMARY | 2023-11-15 04:25 | XMS_ITS | Encounter Summary ---
[place] [address] Care Team Providers Care Hopper Attendant Name Role Phone Jennifer Suarez APRN Primary Care Provider [phone] Reason for Referral * Diagnostic Test (Routine) - Closed Specialty Diagnoses / Procedures Referred By Cheri silverman Referred To Contact Radiology Diagnoses Arthritis of left ankle Procedures CT Ankle wo Contrast Left (Generic) Tio Mayo MD [facility] [place] [address] [facility] [address] Referral ID Status Reason Start Date Expiration Date V isits Requested Visits Authorized [id number] Closed Specialty Service Requested 04/20/2021 10/18/2022 1 1 Encounter Details Date Type Department Care Team (Late st Contact Info) Description 04/20/2021 Orders [place] [address] Tio Mayo MD [facility] [place] [address] Arthritis of left ankle (Primary Dx) Social History [...] AM EDT Office [place] [address] Cyn Murphy, PT [facility] PHYSICAL MEDICINE & [place] [address] 12/04/2023 10:45 AM EDT Appointment XRay at [address] [place] [phone] 12/04/2023 11:40 AM EDT Office [place] [address] Jennifer Stanley APRN [facility] [place] [address] documented as of this encounter Results * CT Ankle wo [...] questions please contact the health pet care assistant that requested your imaging first. [...] have questions please contactthe health pet care assistant that requested your imaging first. Tio Mayo MD IMG CT ORDERABLES documented in this encounter Visit Diagnoses Diagnosis Arthritis of left ankle- Primary Unspecified arthropathy, ankle and foot Arthritis of left ankle Unspecified arthropathy, ankle and foot documented in this encounter Care Teams Hopper Attendant Relationship Specialty Start Date End Date Jennifer Suarez, ROMINA [address] [place] [address] PCP - General Family Medicine 07/14/20 11/20/22 documented as of this encounter
--- OUTSIDE RECORDS SUMMARY | 2023-11-15 04:25 | XMS_ITS | Encounter Summary ---
Author Organization [facility] Address [facility] [place] [address] Care Team Providers Care Tile Sprayer Name Role Phone Jennifer Suarez APRN Primary Care Provider [phone] Encounter Details Date Type Department Care Team (Late st Contact Info) Description 09/16/2021 Telephone [place] [address] Cyn Murphy, PT [facility] PHYSICAL MEDICINE & [place] [address] Social History Tobacco Use Types Packs/Day Years [...] encounter Miscellaneous Notes * Telephone Encounter - Cyn Murphy, PT - 09/16/2021 12:11 PM EDT TM left on mobile phone regarding [employer] being out of network for pt's insurance. Pt would have to pay out of pocket. I recommended she contact insurance to get list of in-network DME companies. Tried to leave message on land line but no answering machine. [facility] message regarding the same was sent on 09/13/21. Cyn Dawn, PT documented in this encounter Plan of Treatment Upcoming Encounters Date Type Department Care Team (Late st Contact Info) Description 12/04/2023 8:00 AM EDT Office [place] [address] Cyn Murphy, PT [facility] PHYSICAL MEDICINE & [place] [address] 12/04/2023 10:45 AM EDT Appointment XRay at [address] [place] [address] 12/04/2023 11:40 AM EDT Office [place] [phone] Jennifer Stanley APRN [facility] [place] [address] documented as of this encounter Visit Diagnoses Not on filedocumented in this encounter Care Teams Tile Sprayer Relationship Specialty Start Date End Date Jennifer Suarez APRN [address] [place] [address] PCP - General Family Medicine 07/14/20 11/20/22 documented as of this encounter
--- OUTSIDE RECORDS SUMMARY | 2023-11-15 04:25 | XMS_ITS | Encounter Summary ---
[place] [address] Care Team Providers Care Vanstone Machine Operator Name Role Phone Jennifer Suarez APRN Primary Care Provider [phone] Encounter Details Date Type Department Care Team (Late st Contact Info) Description 08/25/2021 Telephone Physical [place] [address] Yumiko Kerr Social History Tobacco Use Types Packs/Day Years [...] encounter Miscellaneous Notes * Telephone Encounter - Yumiko Kerr - 08/25/2021 1:53 PM EDT Patient stated full name & . Patient called to schedule PT referral and confirmed appointment on 08/26/2021. Thank you, Yumiko documented in this encounter Plan of Treatment Upcoming Encounters Date Type Department Care Team (Late st Contact Info) Description 12/04/2023 8:00 AM EDT Office Visit [place] [address] Cyn Murphy, PT [facility] PHYSICAL MEDICINE & [place] [address] 12/04/2023 10:45 AM EDT Appointment XRay at [address] [place] [address] 12/04/2023 11:40 AM EDT Office Visit Orthopaedics at [facility] [place] [address] Jennifer Stanley, TOOL OR DIE DRAWING CHECKER [facility] [place] [address] documented as of this encounter Visit Diagnoses Not on filedocumented in this encounter Care Teams Vanstone Machine Operator Relationship Specialty Start Date End Date Jennifer Suarez APRN [address] [place] [address] PCP - General Family Medicine 07/14/20 11/20/22 documented as of this encounter
--- OUTSIDE RECORDS SUMMARY | 2023-11-15 04:25 | XMS_ITS | Encounter Summary ---
[place] [address] Care Team Providers Care Excellence Leader Name Role Phone Jennifer Suarez APRN Primary Care Provider Encounter Details Date Type Department Care Team (Late st Contact Info) Description 06/15/2021 Telephone [place] [address] Tio Mayo MD [facility] [place] [address] Social History Tobacco Use Types Packs/Day Years [...] encounter Miscellaneous Notes * Telephone Encounter - Demetra Oconnor - 06/16/2021 1:53 PM EDT I called and left a message for patient to call [phone] directly and schedule surgery with Dr. mayo. * Telephone Encounter - Rashmi Duke - 06/15/2021 9:38 AM EDT I left a detailed message on the patients voice mail about holding off on scheduling surgery for the time being due to staffing issues. I let them know once we are ready to schedule we will be back in touch. If patient feels like they need to reach out to us they could call our direct line. Our numbers were left for the patient. documented in this encounter Plan of Treatment Upcoming Encounters Date Type Department Care Team (Late st Contact Info) Description 12/04/2023 8:00 AM EDT Office [place] [address] Cyn Murphy, PT [facility] PHYSICAL MEDICINE & [place] [address] 12/04/2023 10:45 AM EDT Appointment XRay at [address] [place] [address] 12/04/2023 11:40 AM EDT Office [place] [address] Jennifer Stanley, METAL FABRICATOR WELDER [facility] [place] [address] documented as of this encounter Visit Diagnoses Not on filedocumented in this encounter Care Teams Excellence Leader Relationship Specialty Start Date End Date Jennifer Suarez APRN [address] [place] [address] PCP - General Family Medicine 07/14/20 11/20/22 documented as of this encounter
--- OUTSIDE RECORDS SUMMARY | 2023-11-15 04:25 | XMS_ITS | Encounter Summary ---
[place] [address] Care Team Providers Care Pulp Maker Name Role Phone Jennifer Suarez APRN Primary Care Provider [phone] Reason for Visit * Reason Onset Date Comments Letter Request From Patient 09/08/2021 Encounter Details Date Type Department Care Team (Late st Contact Info) Description 09/08/2021 Telephone [place] [address] Tio Mayo MD [facility] [place] [address] Letter Request From Patient Social History Tobacco Use Types Packs/Day Years [...] encounter Miscellaneous Notes * Telephone Encounter - June Kolb - 09/08/2021 9:43 AM EDT Letter sent to address and portal. * Telephone Encounter - Samira Del Valle - 09/08/2021 9:08 AM EDT Provider last seen by?Gael What type of letter is needed? other Return to work/school/sports, out of work/school/sports, other Patient looking for letter for the following: Susan Whitney Marisela to Tio Mayo MD DB ?? 09/08/21 8:07 AM at your convenience, I need a letter stating that I need assistance for the first week at home post-op for safety reasons. Ye's employer does not believe that A) I am undergoing any kind of surgery and B) if I am, I am totally able to get around and do things 100% on my own post op. It can be worded as to whom it may concern, and this message can be used as permission to release such information as my name, date / nature of surgery, recovery period and info on f/u appointments (how often, not exact dates of course). Thank you. This letter may be mailed to me at the address listed in my chart. Have a great day! PLEASE INCLUDE their surgical date and the expect period of nonweightbearing is 6 weeks. They will require assistance at home for at least the first week, therefore her (Ye) should be allowed to be absent from work. Would you like to sheepskin pickler your letter, fax, mail, or myD-H?mailed no email please, only as a last option To what address/fax#? [address] [address] To whose attention?TO WHOM IT MAY CONCERN documented in this encounter Plan of Treatment Upcoming Encounters Date Type Department Care Team (Late st Contact Info) Description 12/04/2023 8:00 AM EDT Office [place] [address] Cyn Murphy, PT [facility] PHYSICAL MEDICINE & REHABILITAT [place] [address] 12/04/2023 10:45 AM EDT Appointment XRay at [address] [place] [address] 12/04/2023 11:40 AM EDT Office [place] [address] Jennifer Stanley APRN [facility] [place] [address] documented as of this encounter Visit Diagnoses Not on filedocumented in this encounter Care Teams Pulp Maker Relationship Specialty Start Date End Date Jennifer Suarez APRN [address] [place] [address] PCP - General Family Medicine 07/14/20 11/20/22 documented as of this encounter
--- OUTSIDE RECORDS SUMMARY | 2023-11-15 04:25 | XMS_ITS | Encounter Summary ---
[place] [address] Care Team Providers Care Supervisor Hanging And Trimming Name Role Phone Jennifer Suarez APRN Primary Care Provider [phone] Reason for Visit * Reason Onset Date Comments Disability Paperwork 03/28/2021 Encounter Details Date Type Department Care Team (Late st Contact Info) Description 03/28/2021 Telephone [place] [address] Tio Mayo MD [facility] [place] [address] Disability Paperwork Social History Tobacco Use Types Packs/Day Years [...] encounter Miscellaneous Notes * Telephone Encounter - Sinai Padilla R - 03/29/2021 9:21 AM EST Completed by: Sinai To provider for review/signature: Signed Faxed/Mailed/[facility]/Pick-up Date: Faxed 03/29/21 * Telephone Encounter - Sinai Padilla - 03/28/2021 3:12 PM EST Date Received: 03/28/21 Insurance/Disability Company Name: [employer] documented in this encounter Plan of Treatment Upcoming Encounters Date Type Department Care Team (Late st Contact Info) Description 12/04/2023 8:00 AM EDT Office [place] [address] Cyn Murphy, PT [facility] PHYSICAL MEDICINE & [place] [address] 12/04/2023 10:45 AM EDT Appointment XRay at [address] [place] [address] 12/04/2023 11:40 AM EDT Office [place] [address] Jennifer Stanley TILTING SAW OPERATOR [facility] [place] [address] documented as of this encounter Visit Diagnoses Not on filedocumented in this encounter Care Teams Supervisor Hanging And Trimming Relationship Specialty Start Date End Date Jennifer Suarez APRN [address] [place] [address] PCP - General Family Medicine 07/14/20 11/20/22 documented as of this encounter
--- OUTSIDE RECORDS SUMMARY | 2023-11-15 04:25 | XMS_ITS | Encounter Summary ---
Author Organization [facility] [place] [address] Care Team Providers Care Corner Cutter Machine Operator Name Role Phone Jennifer Suarez APRN Primary Care Provider [phone] Reason for Visit * Physical Therapy (Routine) - Closed Specialty Diagnoses / Procedures Referred By Cheri silverman Referred To Contact Physical Therapy Diagnoses Lymphedema of left lower extremity Tio Mayo MD [facility] [place] [address] Marsha Murphy, PT [facility] PHYSICAL MEDICINE & [place] [address] Referral ID Status Reason Start Date Expiration Date V isits Requested Visits Authorized [id number] Closed Evaluate and Treat 07/27/2021 07/27/2022 100 100 Encounter Details Date Type Department Care Team (Late st Contact Info) Description 08/26/2021 2:00 PM EDT Office [place] [address] Marsha Murphy, PT [facility] PHYSICAL MEDICINE & [place] [address] Hereditary lymphedema Social History Tobacco Use Types [...] Initial Evaluation - Marsha Murphy, PT - 08/26/2021 2:00 PM EDT Images from the original note were not included. LE LYMPHEDEMA INITIAL EXAMINATION Date of Exam/First treatment: 08/26/21 Date of Onset ~ 2016 Referring Provider: [...] on. Had bought compression knee highs at [employer] 12-15 mmhg, They wrinkle and cut in at the ankle andcut in behind the knee. H/o bariatric surgery (~ 2013) 285 lbs down to 194. Currently back up to 250 lbs. 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 Left Total ankle arthroplasty pending H/o bilateral L/E swelling left>right Past Medical History: Diagnosis Date ??? Allergy ??? Arthritis of left ankle 10/13/2020 ??? Asthma ??? Complex regional pain syndrome i of right upper limb ??? Deafness in left ear ?? LATEX ALLERGY Work History and personal factors affecting plan of care : lives with Ye [employer], in [place], [place]. 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 Current Exercise: none PAIN: no leg pains FUNCTIONAL LIMITATIONS: On a difficulty scale with [...] No hemosiderin staining. Small ankle crease developing on the left. Note: Picture(s) taken with verbal consent given by patient. 5) LE circumferences (cm) Right 08/26/21 Left 08/26/21 mtp s 24.3 24.0 Mid foot 23.5 24.0 Y 33.2 35.5 Ankle 29.0 30.2 Calf 49.8 51.5 D 46.6 49.2 Floor-D length 41.0 A-D length 33.[address] mtp-heel 17.5 CLINICAL EVALUATION AND DIAGNOSIS: 51 yo female with gradual onset of mild swelling bilateral L/E in recent years but significant increase in left L/E after subtalar fusion 2016 with slow wound healing. Recent cellulitis. Likely bilateral lymphedema L>R. Possible some venous insufficieny by no venous venous U/S to confirm. ??Pt would several days of compression bandaging to reduce the swellingin left legs however pt works FT and cannot work with bandages on leg. I therefore recommend compression wraps for phase 1 of decongestive therapy. Compression wraps would also be beneficial post op to allow for easy adjustment for fit Compression stockings will likely be too tight post op because of additional post op swelling. Pt at risk for cellulitis. Clinical presentation: Stable Evolving Unstable x Notes: Today Eval Pt education Looked at various compression options and ultimately decided on Ready Wrap Calf, Foot SL and Hybridsock. She would be a size average large with 1 crane hoist or lift operator strap in the calf SL foot size medium, regular length with 1 crane hoist or lift operator strap Color: black Farrow Hybrid sock size: Standard Short stretch bandages applied to left L/E to knee. Pt and SO Ye instructed how to self bandage and video sent via [facility] Compression bandage precautions: pt advised to [...] compression garments. 2. independent in self care. 3. Decrease swelling in preparation for ankle surgery Nov 21 Therapy Custodial Goals 8 weeks 1. maintain reduction in swelling. 2. Fit with compression stockings after surgery (after post op swelling reduced). Recommend flat knit, custom knee highs INITIAL TREATMENT INCLUDED: Eval, self care/home mangement PLAN: Frequency and duration: FU in 6 weeks to assess fit of wraps, effectiveness of wraps and bandaging Treatment: compression bandaging Exercise teaching self care garment fitting The plan has been discussed with the patient and she has agreed with it. Total Treatment time: 75 minutes Total Timed Code Treatment: 75 minutes eval and self care/home management x 2 MARSHA MURPHY PT, CLT documented in this encounter Plan of Treatment Upcoming Encounters Date Type Department Care Team (Late st Contact Info) Description 12/04/2023 8:00 AM EDT Office [place] [address] Marsha Murphy, PT [facility] PHYSICAL MEDICINE & [place] [address] 12/04/2023 10:45 AM EDT Appointment XRay at [address] [place] [address] 12/04/2023 11:40 AM EDT Office [place] [address] Jennifer Stanley APRN [facility] [place] [address] Scheduled Referrals Name Type Priority Associated Diagnoses Orde r Schedule Referral to Physical Therapy Outpatient Referral Routine Lymphedema of left lower extremity Ordered: 07/27/2021 documented as of this encounter Visit Diagnoses Diagnosis Hereditary lymphedema Hereditary edema of legs documented in this encounter Care Teams Corner Cutter Machine Operator Relationship Specialty Start Date End Date Jennifer Suarez APRN [address] [facility] [place] [address] PCP - General Family Medicine 07/14/20 11/20/22 documented as of this encounter
--- OUTSIDE RECORDS SUMMARY | 2023-11-15 04:25 | XMS_ITS | Encounter Summary ---
Author Organization [facility] [place] [address] Care Team Providers Care Math And Physics Instructor Name Role Phone Jennifer Suarez APRN Primary Care Provider Reason for Referral * Physical Therapy (Routine) - Duplicate Referral Specialty Diagnoses / Procedures Referred By Cheri silverman Referred To Contact Physical Therapy Diagnoses Arthritis of left ankle Tio Mayo MD [facility] [place] [address] Cyn Murphy, PT [facility] PHYSICAL MEDICINE & [place] [address] Referral ID Status Reason Start Date Expiration Date Visits Requested Visits Authorized [id number] Duplicate Referral Evaluate and Treat 07/26/2021 07/26/2022 12 12 Reason for Visit * Reason Comments Follow Up Surgery Ankle ARTHROPLASTY Encounter Details Date Type Department Care Team (Late st Contact Info) Description 07/26/2021 4:30 PM EDT [place] [address] Tio Mayo MD [facility] [place] [address] Arthritis of left ankle (Primary Dx); Acquired left hindfoot varus s/p [...] Sign Reading Time Taken Comments Blood Pressure 130/79 07/26/2021 4:23 PM EDT Pulse 77 07/26/2021 4:23 PM EDT Temperature - - Respiratory Rate - - Oxygen Saturation - - Inhaled Oxygen Concentration - - Weight 112.5 kg (248 lb) 07/26/2021 4:23 PM EDT Height 165.1 cm (5' 5) 07/26/2021 4:23 PM EDT Body Mass Index 41.27 07/26/2021 4:23 PM EDT documented in this encounter Progress Notes * Tio Mayo MD - 07/26/2021 4:30 PM EDT Chief complaint: Follow-up in regards to the below, with increased left lower extremity edema Problem List Items Addressed This Visit Arthritis of left ankle - Primary Relevant Orders Referral to Physical Therapy 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 year-old female who I saw previously in regards to left ankle arthritis with a previous subtalar fusion. She had some residual hindfoot varus. We agreed to move forward with removal of hardware and lateral closing wedge osteotomy. This went well and was performed over 6 months ago at this point. She has recovered, but recently developed increased left lower extremity swelling. No drainage from her wound. No fevers, night sweats or chills. She has some questions about our planned neck step, which is left total ankle arthroplasty. Past medical history: Patient Active Problem List Diagnosis Date Noted ??? Edema of left lower leg 07/28/2021 ??? 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 Arthritis of left ankle 10/13/2020 ??? Left foot pain 10/14/2015 Medications: ??? loratadine (Claritin) 10 mg Tablet ??? acetaminophen (Tylenol) 500 mg Tablet ??? gabapentin (Neurontin) 300 mg Capsule ??? albuteroL 90 mcg/actuation HFA Aerosol Inhaler ??? multivitamin Capsule ??? melatonin 1 mg Tablet ??? ibuprofen (ADVIL;MOTRIN) 600 mg Tablet ??? aspirin EC 81 mg Tablet, Delayed Release (E.C.) Allergies: Allergies Allergen Reactions ??? Latex Other [...] chills Vital signs: Temp: -- Physical Exam: No apparent distress. Bilateral lower extremity edema, worse in the left than the right. No signs of active infection. Increased hindfoot valgus from preoperatively. Lateral incision is well-healed. Ankle dorsiflexion plantarflexion cause discomfort. Imaging: Personal review and interpretation of the patient's imaging reveals: Previous x-rays and CT scan reviewed, which show some incorporation of the bone graft in her talus and healing of her osteotomy site. Assessment: 51 y.o. year-old female with edema in her left lower extremity, without signs of activeinfection currently. Plan: We agreed to move forward with consultation with our lymphedema physical therapist to see if we could mobilize some of the fluid in her left lower extremity. This would be imperative prior to proceeding with a total ankle arthroplasty. I answered her questions about total ankle arthroplasty, which we had discussed previously. She will keep her current date for total ankle arthroplasty. If she develops further signs of cellulitis, she will contact us. We will see if we can mobilize some ofthe fluid in her leg prior to proceeding with her upcoming planned procedure. Follow up: For preop appointment for total ankle arthroplasty This plan was discussed with the patient and they are in agreement. All of the patient's questions were answered. The above dictation was made with voice recognition software documented in this encounter Plan of Treatment Upcoming Encounters Date Type Department Care Team (Late st Contact Info) Description 12/04/2023 8:00 AM EDT Office [place] [address] Cyn Murphy, PT [facility] PHYSICAL MEDICINE & [place] [address] 12/04/2023 10:45 AM EDT Appointment XRay at [address] [place] [address] 12/04/2023 11:40 AM EDT Office [place] [address] Jennifer Stanley APRN [facility] [place] [address] Scheduled Referrals Name Type Priority Associated Diagnoses Orde r Schedule Referral to Physical Therapy Outpatient Referral Routine Arthritis of left ankle Ordered: 07/26/2021 documented as of this encounter Visit Diagnoses Diagnosis Arthritis of left ankle- Primary Unspecified arthropathy, ankle and foot 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
--- OUTSIDE RECORDS SUMMARY | 2023-11-15 04:25 | XMS_ITS | Encounter Summary ---
[place] [address] Care Team Providers Care Technology Analyst Name Role Phone Jennifer Suarez APRN Primary Care Provider [phone] Encounter Details Date Type Department Care Team (Late st Contact Info) Description 09/23/2021 Telephone [place] [address] Sandra Weeks Social History Tobacco Use Types [...] * Telephone Encounter - Sandra Weeks - 09/23/2021 3:17 PM EDT Faxed to [employer] @ [phone] for ARSALAN,PT. Received successful confirmation of 11 pages including cover page documented in this encounter Plan of Treatment Upcoming Encounters Date Type Department Care Team (Late st Contact Info) Description 12/04/2023 8:00 AM EDT Office [place] [address] Cyn Murphy, PT [facility] PHYSICAL MEDICINE & [place] [address] 12/04/2023 10:45 AM EDT Appointment XRay at [address] [place] [address] 12/04/2023 11:40 AM EDT Office Visit Orthopaedics at [facility] [place] [address] Jennifer Stanley, FINANCIAL SUPERVISOR [facility] [place] [address] documented as of this encounter Visit Diagnoses Not on filedocumented in this encounter Care Teams Technology Analyst Relationship Specialty Start Date End Date Jennifer Suarez APRN [address] [place] [address] PCP - General Family Medicine 07/14/20 11/20/22 documented as of this encounter
--- OUTSIDE RECORDS SUMMARY | 2023-11-15 04:25 | XMS_ITS | Encounter Summary ---
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 Jennifer has been experiencing an area on the anterior medial aspect of the left leg which was red and very tender. I called and talked to Marisela who reports that this area has been tender for over a week now and is progressively getting worse. She is now 6 months out from her most recent surgery. She denies any chest pain, shortness of breath. We did discuss my concern with a blood clot and I urged her to have this evaluated. I did place orders for a duplex stat in the system. She is currently working and will try to get out as soon as she can to obtain the duplex. Karey De PA-C documented in this encounter Plan of Treatment Upcoming Encounters Date Type Department Care Team (Late st Contact Info) Description 12/04/2023 8:00 AM EDT Office Visit [place] [address] Cyn Murphy, PT [facility] PHYSICAL MEDICINE & [place] [address] 12/04/2023 10:45 AM EDT Appointment XRay at [address] [place] [address] 12/04/2023 11:40 AM EDT Office Visit [place] [address] Jennifer Stanley APRN [facility] [place] [address] documented as of this encounter Visit Diagnoses Diagnosis 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
--- OUTSIDE RECORDS SUMMARY | 2023-11-15 04:25 | XMS_ITS | Encounter Summary ---
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 Mayo); History of arthroplasty of left ankle Discharge [...] Capsule Take 2,000 Units by mouth daily. 0619-9483 units prescribed albuteroL 90 mcg/actuation HFA Aerosol Inhaler INHALE ONE TO TWO PUFFS BY MOUTH EVERY 4 TO 6 HOURS NEEDED 06/10/2020 multivitamin Capsule Take 1 capsule by mouth daily. aspirin EC 81 mg Tablet, Delayed Release (E.C.) Take 1 tablet by mouth 2 times daily. Take with food for 30 days after surgery. Last day = 12/21/21. 11/22/2021 11/21/2022 ibuprofen (Advil) 600 mg Tablet Take 1 tablet by mouth every 6 hours as needed for Pain (Alternate with Tylenol for acute post-op surgical pain). 45 tablet 11/22/2021 02/21/2022 gabapentin (Neurontin) 300 mg Capsule Take by mouth as needed. 12/25/2019 11/21/2022 documented as of this encounter Plan of Treatment Upcoming Encounters Date Type Department Care Team (Late st Contact Info) Description 12/04/2023 8:00 AM EDT Office [place] [address] Cyn Murphy, PT [facility] PHYSICAL MEDICINE & [place] [address] 12/04/2023 10:45 AM EDT Appointment XRay at [address] [place] [address] 12/04/2023 11:40 AM EDT Office [place] [address] Jennifer Stanley, SAUSAGE MIXER [facility] [place] [address] documented as of this encounter Procedures Procedure Name Priority Date/Time Associated Diagnosis Comments XR ANKLE MIN 3 VIEWS LEFT Routine 01/06/2022 3:24 PM EDT Arthritis of left ankle Acquired left hindfoot varus s/p lateral closing [...] have questions please contact the health care connector that requested your imaging first. ? Narrative 01/06/2022 4:46 PM EDT EXAMINATION: XR [...] who have questions please contactthe health care connector that requested your imaging first. 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 Mayo) History of arthroplasty of left ankle documented in this encounter Care Teams Solutions Sales Consultant Relationship Specialty Start Date End Date Jennifer Suarez, ROMINA [address] [facility] [address] PCP - General Family Medicine 07/14/20 11/20/22 documented as of this encounter
--- OUTSIDE RECORDS SUMMARY | 2023-11-15 04:25 | XMS_ITS | Encounter Summary ---
Author [place] [address] Care Team Providers Care Vamp Creaser Name Role Phone Jennifer Suarez APRN Primary Care Provider [phone] Reason for Referral * Physical Therapy (Routine) - Closed Specialty Diagnoses / Procedures Referred By Cheri silverman Referred To Contact Physical Therapy Diagnoses Lymphedema of left lower extremity Tio Mayo MD [facility] [place] [address] Cyn Murphy, PT [facility] PHYSICAL MEDICINE & [place] [address] Referral ID Status Reason Start Date Expiration Date V isits Requested Visits Authorized [id number] Closed Evaluate and Treat 07/27/2021 07/27/2022 100 100 Reason for Visit * Reason Onset Date Comments Physical Therapy 07/27/2021 Encounter Details Date Type Department Care Team (Late st Contact Info) Description 07/27/2021 Telephone [place] [address] Tio Mayo MD [facility] [place]THOPAED[place] [address] Physical Therapy Social History Tobacco Use Types Packs/Day Years [...] encounter Miscellaneous Notes * Telephone Encounter - Lenny Ham - 07/27/2021 11:40 AM EDT Updated PT referral to include diagnosis of lymphedema. Returned call to PT clinic to make them aware that we do need the patient to be seen for lymphedema treatment prior to orthopedic surgery. * Telephone Encounter - Tia Denson - 07/27/2021 11:12 AM EDT Luiza is calling from PT and stated the referral to PT with Cyn Murphy doesn't treat arthritis unless there is lymphedema and in that case she can. It would just need to have that written on the referral. If she doesn't have Lymphedema then it needs to go to [facility]. documented in this encounter Plan of Treatment Upcoming Encounters Date Type Department Care Team (Late st Contact Info) Description 12/04/2023 8:00 AM EDT Office [place] [address] Cyn Murphy, PT [facility] PHYSICAL MEDICINE & [place] [address] 12/04/2023 10:45 AM EDT Appointment XRay at [address] [place] [address] 12/04/2023 11:40 AM EDT Office [place] [address] Jennifer Stanley, TRAFFIC ENUMERATOR [facility] ORTHOPAEDIC [place] [address] Scheduled Referrals Name Type Priority Associated Diagnoses Orde r Schedule Referral to Physical Therapy Outpatient Referral Routine Lymphedema of left lower extremity Ordered: 07/27/2021 documented as of this encounter Visit Diagnoses Diagnosis Lymphedema of left lower extremity documented in this encounter Care Teams Vamp Creaser Relationship Specialty Start Date End Date Jennifer Suarez, TRAFFIC ENUMERATOR [address] [place] [address] PCP - General Family Medicine 07/14/20 11/20/22 documented as of this encounter
--- OUTSIDE RECORDS SUMMARY | 2023-11-15 04:25 | XMS_ITS | Encounter Summary ---
[place] [address] Care Team Providers Care Form Setter Steel Forms Name Role Phone Jennifer Suarez APRN Primary Care Provider Reason for Visit * Reason Comments Leg Pain Red, swollen, painfu l Encounter Details Date Type Department Care Team (Late st Contact Info) Description 07/16/2021 6:18 PM EDT - 07/16/2021 6:51 PM EDT [place] [address] Ramirez Guan MD [facility] [place] [address] Cellulitis of leg, left Discharge Disposition: Home Social History Tobacco Use [...] Taken Comments Blood Pressure - - Pulse 88 07/16/2021 5:42 PM EDT Temperature 36.3 ??C (97.4 ??F) 07/16/2021 5:42 PM ED T Respiratory Rate 18 07/16/2021 5:42 PM EDT Oxygen Saturation 98% 07/16/2021 5:42 PM EDT Inhaled Oxygen Concentration - - Weight 112.5 kg (248 lb 0.3 oz) 07/16/2021 5:42 PM EDT Height - - Body Mass Index 41.27 06/10/2021 2:52 PM EDT documented in this encounter Discharge Instructions * Discharge Instructions* Ramirez Guan MD - 07/16/2021 6:43 PM EDT 1. Keep the leg elevated is much as possible. 2. Local warm compresses intermittently as discussed. 3. Keflex as prescribed. 4. Return to the emergency department for increased redness, increased swelling, uncontrolled pain,fever/chills, or for any other concerns. 5. See your doctor for recheck on Sunday afternoon if not significantly improved. * Attachments The following attachments cannot be sent through Care Everywhere. * Cellulitis ([place]izen [place]) documented in this encounter Medications at Time [...] as of this encounter ED Notes * Ramirez Guan MD - 07/16/2021 6:44 PM EDT ED Attending Note 51-year-old female describes redness, swelling, discomfort left lower extremity progressive over the past week. No fevers/chills/nausea/vomiting/other systemic complaints. No recent injury though patient did have surgery on his ankle in November status post subtalar fusion in 2015. No history of DVT, prolonged immobilization/travel, chest pain/shortness of breath. Past medical history: No history of DVT, no history of diabetes, distant history of cellulitis. 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 Alert and oriented x3. Conjunctiva pink, mucous membranes moist. Left lower extremity: Dorsalis pedis 1/4. Trace edema-baseline per patient symmetric bilaterally Surgical scar is well-healed without local erythema or tenderness. There is tender erythema circumferentially around the lower leg extending from approximately the level of the ankle to approximately 5 cm below the knee. There is no crepitance. There is no fluctuance. There is no palpable cord. ER course: Patient is given Keflex 500 mg. Impression: Left lower extremity redness. History and exam are most suggestive of cellulitis. No evidence of abscess or necrotizing fasciitis at this time. DVT is clinically unlikely given the appearance. Plan: Home with antibiotics (Keflex x10 days). Patient is instructed to keep leg elevated at all times and to use warm compresses intermittently. I gave her a work note so that she can continue to stay home and elevate her leg on Sunday. Return precautions were reviewed and patient is asked to see her PCP on Sunday for recheck if not significantly improved. Did this case involve critical care? No Ramirez Guan MD 07/16/211857 * Alem Duke RN - 07/16/2021 6:27 PM EDT Pt amb to triage, no limp noted, redness noted to lower leg, no recent travel, no blood thinners, no hx of clots, no fever/chills. documented in this encounter Miscellaneous Notes * ED Triage - Edie Dawn RN - 07/16/2021 5:41 PM EDT Patient left lower leg is red, painful, swollen. Has been this way for a week. Denies fever/chills/n/v/d Pain 05/05 documented in this encounter Plan of Treatment Upcoming Encounters Date Type Department Care Team (Late st Contact Info) Description 12/04/2023 8:00 AM EDT Office [place] [address] Cyn Murphy, PT [facility] PHYSICAL MEDICINE & [place] [address] 12/04/2023 10:45 AM EDT Appointment XRay at [address] [place] [address] 12/04/2023 11:40 AM EDT Office [place] [address] Jennifer Stanley, VP DELIVERY [facility] [place] [address] documented as of this encounter Visit Diagnoses Diagnosis Cellulitis of leg, left Cellulitis and abscess of leg, except foot documented in this encounter Administered Medications Inactive Administered Medications - up to 3 most recent administrations Medication Order MAR Action Action Date Dose Rate Site cephALEXin (Keflex) capsule 500 mg 500 mg, Oral, ONCE, 1 dose, On 07/16/21 at 1842, STAT, Indication for (Active or Suspected): Skin/Skin Structure Given 07/16/2021 6:48 PM EDT 500 mg documented in this encounter Active and Recently Administered Medications Times are shown in EDT. Scheduled Medication Order 07/14/2021 07/15/2021 07/16/2021 cephALEXin (Keflex) capsule 500 mg (COMPLETED) 500 mg, Oral, ONCE, 1 dose, On 07/16/21 at 1842, STAT, Indication for (Active or Suspected): Skin/Skin Structure 1848 (Given - Provid er: Alem Duke RN) documented in this encounter Care Teams Form Setter Steel Forms Relationship Specialty Start Date End Date Jennifer Suarze APRN [address] [place] [address] PCP - General Family Medicine 07/14/20 11/20/22 documented as of this encounter
--- OUTSIDE RECORDS SUMMARY | 2023-11-15 04:25 | XMS_ITS | Encounter Summary ---
Author Organization [facility] [place] [address] Care Team Providers Care Barman Name Role Phone Jennifer Suarez APRN Primary Care Provider [phone] Reason for Visit * Reason Onset Date Comments Disability Paperwork 11/30/2021 Encounter Details Date Type Department Care Team (Late st Contact Info) Description 11/30/2021 Telephone [place] [address] [facility] [place] [address] Disability Paperwork Social History Tobacco Use Types [...] Notes * Telephone Encounter - Sinai Padilla - 12/01/2021 8:47 AM EDT Completed by: Sinai To provider for review/signature: Signed Faxed/Mailed/MY PORTAL/Pick-up Date: Faxed * Telephone Encounter - Sinai Padilla - 11/30/2021 1:48 PM EDT Date Received: 11/29/21 Insurance/Disability Company Name: [employer] documented in this encounter Plan of Treatment Upcoming Encounters Date Type Department Care Team (Late st Contact Info) Description 12/04/2023 8:00 AM EDT Office [place] [address] Cyn Murphy, PT [facility] PHYSICAL MEDICINE & [place] [address] 12/04/2023 10:45 AM EDT Appointment XRay at [address] [place] [address] 12/04/2023 11:40 AM EDT Office [place] [address] Jennifer Stanley POWER CHISEL OPERATOR [facility] [place] [address] documented as of this encounter Visit Diagnoses Not on filedocumented in this encounter Care Teams Barman Relationship Specialty Start Date End Date Jennifer Suarez APRN [address] [place] [address] PCP - General Family Medicine 07/14/20 11/20/22 documented as of this encounter
--- OUTSIDE RECORDS SUMMARY | 2023-11-15 04:25 | XMS_ITS | Encounter Summary ---
[place] [address] Care Team Providers Care Bookstore Manager Name Role Phone Jennifer Suarez APRN Primary Care Provider [phone] Reason for Visit * Auth/Cert Specialty Diagnoses / Procedures Referred By Cheri t Referred To Contact Diagnoses Varus deformity, not elsewhere classified, left ankle Primary osteoarthritis, left ankle and foot Left ankle arthritis Procedures PRO ARTHROPLASTY ANKLE WITH IMPLANT TOTAL ANKLE ARTHROPLASTY (WRVU 14.42) Tio Mayo MD [facility] [place] [address] [facility] Referral ID Status Reason Start Date Expiration Date Visits Re quested Visits Authorized [id number] 1 1 Encounter Details Date Type Department Care Team (Late st Contact Info) Description 11/21/2021 7:22 AM EDT Anesthesia [place] [address] Missael Lee MD [facility] [place] [address] Jeronimo Stanley MD [facility] [place] [address] Anesthesia Record Procedure Summary Procedure Name Responsible Anesthesiologist Anesthesia Start Time Anesthesia Stop Time TOTAL ANKLE ARTHROPLASTY (WRVU 14.42) (Left: Ankle) Missael Lee MD 11/21/21 0722 11/21/21 1001 Events Date Time Event Comment 11/21/2021 0722 AN Verify 0722 Start 0724 An Start Data 0730 An Induction 0732 An Intubation 0734 Anesthesia Ready 0736 Quick Note Right hearing a id removed and placed with pt folder 0752 An Tourn Inflated 300mmHg 0753 Procedure Start 0851 Break/Relief In I assumed ca re for Break Relief before which we: 1. Identified the patient 2. Identified the responsible provider(s) 3. Reviewed the pertinent medical history 4. Discussed the surgical plan and course 5. Reviewed intra-op anesthesia management and issues during anesthesia 6. Set expectations for the relief (and/or post-procedure) period 7. Allowed opportunity for questions and acknowledgement of understanding Macy Mitchell CRNA 0907 Break/Relief Out 0939 An Tourn Deflated 0949 Extubation/LMA Out 0953 an stop data 0959 Recovery or ICU Handoff Cynthia ent care was transferred to the destination unit staff after review of the patient's medical history, current anesthetic/surgical status and plan, according to the Provider Handoff Checklist. 1001 Stop 1035 Meds Name Total Propofol 300 mg fentaNYL 25 mcg Dexamethasone 8 mg Ondansetron 8 mg BUpivacaine 0.5% 30 mL ceFAZolin 2 g Dexmedetomidine 16 mcg lactated ringers infusion 700 mL * Agents Name O2 Air N2O Sevoflurane (et) * Blood No blood administrations on file. Lines, Drains, and Airways Type Details Placement Removal Incision 12/01/20; Left; heel 12/01/20 00 00 by Shae Kitchen RN Incision 11/21/21; 0753; Left , anterior; ankle; vertical 11/21/21 0753 by Chung Godwin, JOSHUA (RETIRED) Peripheral IV Line - Single Lumen 11/21/21; 0640; metacarpal vein (top of hand), left; wlfo-ohb-wqeaea catheter system; 20 gauge, 1 in length; Edith Rojas RN; distraction, tolerated well, appears comfortable; catheter/device intact, other (see comments) (discomfort with flushing); 11/21/21; 1725 11/21/21 0640 by Edith Rojas RN 11/21/21 1725 by Melinda [place] RN Supraglottic Mask Ventilation: Ea sy (1); LMA Type: iGel; LMA Size: 4; Inserted by: vale mcpherson crna; Removal Date: 11/21/21; Removal Time: 94811/21/21 0732 by Vale Badillo CRNA 11/21/21 0949 by Vale Badillo CRNA documented in this encounter Social History Tobacco Use Types Packs/Day Years [...] AM EDT documented as of this encounter OR Notes * Anesthesia Postprocedure Evaluation - Missael Lee MD - 11/21/2021 10:35 AM EDT Department of Anesthesiology Post-procedure Note Patient: Susan Whitney Procedure Summary Date: 11/21/21 Room / Location: [facility] OR [address] [place] [address] MAIN OR Anesthesia Start: 721 Anesthesia Stop: 100 Procedure: TOTAL ANKLE ARTHROPLASTY (WRVU 14.42) (Left Ankle) Diagnosis: (Left ankle arthritis) Surgeons: Tio Mayo MD Responsible Provider: Missael Lee MD Anesthesia Type: general ASA Status: 3 All Anesthesia Providers: Anesthesiologist: Missael Lee MD ELECTRONIC GLUER: Vale Mcpherson CRNA Vitals Value Taken Time BP 142/75 11/21/21 1030 Temp Pulse 46 11/21/21 1034 Resp 9 11/21/21 1034 SpO2 98 % 11/21/21 1034 Pain Level Vitals shown include unvalidated device data. Patient Location: PACU/[facility] Level of Consciousness: Awake and Alert Pain Management: Pain Being Addressed PONV: None Cardiovascular Status: Hemodynamically Stable Respiratory Status: Stable Respiratory Status Postoperative Fluid Status: Intravascular EUvolemia Possible Anesthetic Complications: NONE apparent at time of evaluation Final Primary Anesthesia Type: General (The anesthetic type performed was the same as planned.) Comments: * Anesthesia Procedure Notes - Jeronimo Stanley - 11/21/2021 7:21 AM EDT Associated Order(s): Anesthesia Block Anesthesia Block Date/Time: 11/21/2021 7:00 AM Performed by: Jeronimo Stanley MD Authorized by: Jason Sue MD Start Time: 11/21/2021 7:00 AM End Time: 11/21/2021 7:07 AM Patient Location: Block Room The patient was greeted; the risks and benefits of the procedure were reviewed. Indication: Post-op Pain Control Post-op pain management at the request of surgeon. Block Type: Sciatic and saphenous nerve block/mid thigh sciatic/ popliteal nerve block Laterality: Left Position: Supine Prep: Chlorhexidine, patient draped and mask, cap, sterile gloves, hand hygeine Skin Anesthetic: Skin Anesthetic: Lidocaine 1% dose: 5 Block Technique: SonoPlex 21 10 cm Ultrasound Guided: YES and in-plane Ultrasound Image Saved Ultrasound guidance was used to identify the targeted neuronal structure. Ultrasound was also used to identify needle position and to identify tissue (bone, muscle, and blood vessels) to prevent inadvertent intraneural or intravascular needle placement and injection. The spread of local anesthetic was confirmed with live ultrasound imaging. Single-Shot: Single-shot Local Anesthetic Volume(s) Injected for Nerve Block: BUpivacaine 0.5% - Perineural 30 mL - 11/21/2021 7:07:00 AM Nerve Sensory/MotorTest: Events: no complications Staff: Fellow:: Jeronimo Stanley MD Attending Physician:: Jason Sue MD Notes: Target structures, needle, and local anesthetic spread were visualized under US guidance for the duration of the procedure. No blood aspirated, no pain on injection, no paresthesias. No needle to nerve contact was observed on ultrasound. 20 cc Sciatic 10 cc Saphenous * Anesthesia Preprocedure Evaluation - Missael Lee MD - 11/18/2021 10:54 AM EDT Images from the original note were not included. Pre-Anesthesia Evaluation for: Susan Whitney a 51 y.o. female. Procedure(s): TOTAL ANKLE ARTHROPLASTY (WRVU 14.42) Patient Active Problem List Diagnosis Date Noted ??? Edema of left lower leg 07/28/2021 ??? 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 Arthritis of left ankle 10/13/2020 ??? Left foot pain 10/14/2015 Past Medical History: Diagnosis Date ??? Allergy ??? Arthritis of left ankle 10/13/2020 ??? Asthma ??? 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 Complex regional pain syndrome i of right upper limb ??? Deafness in left ear ??? Irregular heart beat Svt with pvc???s and pac???s as noted on holter 01/2020 at [facility] , mild and occasional ??? Post-operative nausea and vomiting Last 2 uneventful, most recent here at [facility], see surigical notes from 12/01/20 Past Surgical History: Procedure Laterality Date ??? SECTION ??? ECTOPIC SURGERY x 2 ??? ORTHOPEDIC SURGERY ??? PRO OSTEOTOMY HEEL BONE Left 12/01/2020 OSTEOTOMY, CALCANEUS (WRVU 9.73) performed by Tio Mayo MD at [facility] MAIN OR ??? PRO REMOVAL DEEP IMPLANT Left 12/01/2020 REMOVAL OF IMPLANT, DEEP, FOOT (WRVU 5.96) performed by Tio Mayo MD at [facility] MAIN OR ??? TUBAL LIGATION ??? XR FLUORO INJECTION DRAINAGE JOINT MD LEFT Left 09/06/2020 XR Fluoro Guided Joint Injection Medium Left 09/06/2020 Janell Shah, SOFTWARE LICENSING EXECUTIVE [facility] RAD XRAY Social History Tobacco Use ??? Smoking status: Never Smoker ??? Smokeless tobacco: Never Used Substance Use Topics ??? Alcohol use: Yes Comment: Rarely drink. At most Maybe 1 shot or 1 wine cooler a month Social History Substance and Sexual Activity Drug Use No Allergies Allergen Reactions ??? Latex Other reaction(s): [...] Vicodin [Hydrocodone-Acetaminophen] Hives Respiratory distress, swollen/itchy tongue Medications: MAR and/or home medications have been reviewed. Physical Exam: Preprocedure Vitals Current as of 11/18/21 1054 No BP, pulse, respiration, SpO2, or temperature recorded. Height: 165.1 cm (5' 5) (10/12/20) Weight: 112.7 kg (248 lb 7.3 oz) (10/12/20) BMI: 41.34 IBW: 57 kg (125 lb 10.6 oz) Airway Assessment: Mallampati: II TM distance: >3 FB Neck ROM: full Cardiovascular Assessment: system normal Pulmonary Assessment: pulmonary exam normal Dental Assessment: (+) upper dentures Misc Assessment: IV access: Peripheral line Last Filed Perioperative Cognitive Screening None Anesthesia Plan: ASA 3 general, with a(n) intravenous induction 51 yo, 113 kg (BMI 41), female, with a PMHx of obesity, Asthma, CRPS, PONV, Irregular heart beat (SVT, PAC's), and left ankle arthritis, who presents for scheduled left total ankle arthroplasty. Allergies: Latex Phenergan (promethazine) Promethazine Hcl Adhesive Codeine Hydrocodone Meperidine Nsaids (non-steroidal Anti-inflammatory Drug) Oxycodone Percocet (oxycodone-acetaminophen) Simethicone Vicodin (hydrocodone-acetaminophen) Anesthesia History: Has tolerated GA with LMA 4 previously Anesthesia Plan: Pre-op Pop-Saph nerve block GA with LMA/ETT Jeronimo Stanley MD Pager [phone] Region - Other Informed Consent: Anesthesia Screening documented in this encounter Miscellaneous Notes * Addendum Note - Rowdy Hannah MD - 11/29/2021 11:38 AM EDT Addendum created 11/29/21 1138 by Rowdy Hannah MD Clinical Note Signed documented in this encounter Plan of Treatment Upcoming Encounters Date Type Department Care Team (Late st Contact Info) Description 12/04/2023 8:00 AM EDT Office Visit Physical Therapy at [place] [phone] Cyn Murphy, PT [facility] PHYSICAL MEDICINE & [place] [address] 12/04/2023 10:45 AM EDT Appointment XRay at [address] [place] [address] 12/04/2023 11:40 AM EDT Office Visit Orthopaedics at [place] [phone] Jennifer Stanley, SOFTWARE LICENSING EXECUTIVE [facility] [place] [address] documented as of this encounter Procedures Procedure Name Priority Date/Time Associated Diagnosis Comments ANESTHESIA BLOCK Routine 11/21/2021 7:00 AM EDT documented in this encounter Results * Anesthesia Block (11/21/2021 7:00 AM EDT) Narrative Jason Sue MD - 11/21/2021 7:00 AM EDT Jeronimo Stanley MD ? 11/21/2021 ??7:22 AM Anesthesia Block Date/Time: 11/21/2021 7:00 AM Performed by: Jeronimo Stanley MD Authorized by: Jason Sue MD Start Time: ??11/21/2021 7:00 AM End Time: ??11/21/2021 7:07 AM Patient Location: ??Block Room The patient was greeted; the risks and benefits of the procedure were reviewed. ?? Indication: ??Post-op Pain Control Post-op pain management at the request of surgeon. ?? Block Type: ??Sciatic and saphenous nerve block/mid thigh sciatic/ popliteal nerve block Laterality: ??Left Position: ??Supine Prep: ??Chlorhexidine, patient draped and mask, cap, sterile gloves, hand hygeine Skin Anesthetic: ??Skin Anesthetic: ??Lidocaine 1% ??dose: ??5 Block Technique: ?? SonoPlex ?? 21 ?? 10 cm ??Ultrasound Guided: ??YES and in-plane ??Ultrasound Image Saved ?Ultrasound guidance was used to identify the targeted neuronal structure. Ultrasound was also used to identify needle position and to identify tissue (bone, muscle, and blood vessels) to prevent inadvertent intraneural or intravascular needle placement and injection. The spread of local anesthetic was confirmed with live ultrasound imaging. ?Single-Shot: ??Single-shot Local Anesthetic Volume(s) Injected for Nerve Block: ?? BUpivacaine 0.5% - Perineural 30 mL - 11/21/2021 7:07:00 AM Nerve Sensory/MotorTest: ??Events: no complications ?? Staff: ??Fellow:: ??Jeronimo Stanley MD ??Attending Physician:: ??Jason Sue MD Notes: ?? Target structures, needle, and local anesthetic spread were visualized under US guidance for the duration of the procedure. No blood aspirated, no pain on injection, no paresthesias. No needle to nerve contact was observed on ultrasound. 20 cc Sciatic 10 cc Saphenous Jason Sue MD [employer] CONSERVATION TEACH[employer] [facility] documented in this encounter Visit Diagnoses Not on filedocumented in this encounter Administered Medications Inactive Administered Medications - up to 3 most recent administrations Medication Order MAR Action Action Date Dose Rate Site BUpivacaine (pf) (Marcaine) (5 mg/mL) 0.5% injection Perineural, Starting on Sun11/21/21 at 0707, Until Sun11/21/21 at 0707, Anesthesia Intra-op, Routine Given 11/21/2021 7:07 AM EDT 30 mLs ceFAZolin (Ancef) 1 g in dextrose 5% 50 mL infusion Intravenous, PRN, Starting on Sun11/21/21 at 0735, Until Sun11/21/21 at 1010, Administer over 30 Minutes, Anesthesia Intra-op Given 11/21/2021 7:35 AM EDT 2 g dexAMETHasone (Decadron) injection Intravenous, PRN, Starting on Sun11/21/21 at 0736, Until Sun11/21/21 at 1010, Anesthesia Intra-op, Routine Given 11/21/2021 7:36 AM EDT 8 mg dexmedeTOMIDine (Precedex) (4 mcg/mL) bolus injection (Anesthsia) Intravenous, PRN, Starting on Sun11/21/21 at 0751, Until Sun11/21/21 at 1010, Anesthesia Intra-op, Routine Given 11/21/2021 7:56 AM EDT 8 mcg Given 11/21/2021 7:51 AM EDT 4 mcg Given 11/21/2021 7:47 AM EDT 4 mcg fentaNYL (pf) (50 mcg/mL) multi-dose injection Intravenous, PRN, Starting on Sun11/21/21 at 0756, Until Sun11/21/21 at 1010, Anesthesia Intra-op, Routine Given 11/21/2021 7:56 AM EDT 25 mcg lactated ringers infusion 1,000 mL, at 100 mL/hr, Intravenous, CONTINUOUS, Starting on Sun11/21/21 at 0630, Until Sun11/21/21 at 1135, Day of Surgery (Day of Procedure) New Bag 11/21/2021 7:22 AM EDT ondansetron (pf) (Zofran) (2 mg/mL) injection Intravenous, PRN, Starting on Sun11/21/21 at 0736, Until Sun11/21/21 at 1010, Anesthesia Intra-op, Routine Given 11/21/2021 9:20 AM EDT 4 mg Given 11/21/2021 7:36 AM EDT 4 mg propofoL (Diprivan) 10 mg/mL bolus injection (Anesthesia) Intravenous, PRN, Starting on Sun11/21/21 at 0730, Until Sun11/21/21 at 1010, Anesthesia Intra-op Given 11/21/2021 7:32 AM EDT 50 mg Given 11/21/2021 7:30 AM EDT 250 mg documented in this encounter Care Teams Bookstore Manager Relationship Specialty Start Date End Date Jennifer Suarez, SOFTWARE LICENSING EXECUTIVE [address] [facility] [place] [address] PCP - General Family Medicine 07/14/20 11/20/22 documented as of this encounter
--- OUTSIDE RECORDS SUMMARY | 2023-11-15 04:25 | XMS_ITS | Encounter Summary ---
[place] [address] Care Team Providers Care Visual Merchandise Manager Name Role Phone Jennifer Suarez APRN Primary Care Provider [phone] Encounter Details Date Type Department Care Team (Late st Contact Info) Description 09/12/2021 Telephone [place] [phone] Sandra Weeks Social History Tobacco Use Types [...] * Telephone Encounter - Sandra Weeks - 09/12/2021 7:39 AM EDT Faxed to Brianna @ [employer] @ [phone] for AHPT receviecy successful confirmation of 5 pages including cover page documented in this encounter Plan of Treatment Upcoming Encounters Date Type Department Care Team (Late st Contact Info) Description 12/04/2023 8:00 AM EDT Office [place] [address] Cyn Murphy, PT [facility] PHYSICAL MEDICINE & [place] [address] 12/04/2023 10:45 AM EDT Appointment XRay at [address] [place] [address] 12/04/2023 11:40 AM EDT Office [place] [address] Jennifer Stanley, BRICK UNLOADER TENDER [facility] [place] [address] documented as of this encounter Visit Diagnoses Not on filedocumented in this encounter Care Teams Visual Merchandise Manager Relationship Specialty Start Date End Date Jennifer Suarez APRN [address] [place] [address] PCP - General Family Medicine 07/14/20 11/20/22 documented as of this encounter
--- OUTSIDE RECORDS SUMMARY | 2023-11-15 04:25 | XMS_ITS | Encounter Summary ---
Author Organization [facility] Address [facility] [place] [address] Care Team Providers Care Dairy Bar Manager Name Role Phone Jennifer Suarez APRN Primary Care Provider [phone] Encounter Details Date Type Department Care Team (Latest Contact Info) Description 06/10/2021 2:15 PM EDT - 06/10/2021 11:59 PM EDT Hospital Encounter XRay at [address] [place] [address] Iris Jackson MD [facility] [place] [address] Acquired left hindfoot varus Discharge Disposition: Home [...] AM EDT Office Visit [place] [phone] Cyn Murphy, PT [facility] PHYSICAL MEDICINE & [place] [address] 12/04/2023 10:45 AM EDT Appointment XRay at [address] [place] [phone] 12/04/2023 11:40 AM EDT Office Visit [place] [phone] Jennifer Stanley, ASSET CARD CLERK [facility] [place] [address] documented as of this encounter Procedures Procedure Name Priority Date/Time Associated Diagnosis Comments XR FOOT MIN 3 VIEWS LEFT Routine 06/10/2021 2:32 PM EDT Acquired left hindfoot varus documented in this [...] who have questions please contact the health respiratory care technician that requested your imaging first. ? Electronically signed by: Deb Michelle MD, [facility] ([phone]), at 06/10/2021 4:01 PM Narrative 06/10/2021 4:01 PM EDT EXAMINATION: XR [...] patients who have questions please contactthe health respiratory care technician that requested your imaging first. Iris Jackson MD IMG DX ORDERABLES documented in this encounter Visit Diagnoses Diagnosis Acquired left hindfoot varus documented in this encounter Care Teams Dairy Bar Manager Relationship Specialty Start Date End Date BreeJennifer silva, ASSET CARD CLERK [address] [facility] [place] [place] [address] PCP - General Family Medicine 07/14/20 11/20/22 documented as of this encounter
--- OUTSIDE RECORDS SUMMARY | 2023-11-15 04:25 | XMS_ITS | Encounter Summary ---
Author Organization [facility] Address [facility] [place] [address] Care Team Providers Care Dna Analyst Name Role Phone Jennifer Suarez APRN Primary Care Provider [phone] Encounter Details Date Type Department Care Team (Latest Contact Info) Description 02/08/2021 12:50 PM EST - 02/08/2021 11:59 PM [facility] Hospital Encounter XRay at [address] [place] [address] Iris Jackson MD [facility] [place] [address] Acquired left hindfoot varus Discharge Disposition: Home [...] AM EDT Office [place] [address] Cyn Murphy, PT [facility] PHYSICAL MEDICINE & [place] [address] 12/04/2023 10:45 AM EDT Appointment XRay at [address] [place] [phone] 12/04/2023 11:40 AM EDT Office [place] [phone] Jennifer Stanley APRN [facility] [place] [address] documented as of this encounter Procedures Procedure Name Priority Date/Time Associated Diagnosis Comments XR FOOT MIN 3 VIEWS LEFT Routine 02/08/2021 1:04 PM EST Acquired left hindfoot varus documented in this encounter Results * XR Foot Min 3 views Left (Generic) (02/08/2021 1:04 PM EST) Anatomical Region Laterality Modality Foot Left Digital Radiogra phy Impressions 02/08/2021 1:46 PM EST Calcaneal osteotomy performed without complication. Thank you for letting us participate in the care of this patient. ??If you are a health care provider and have any questions regarding this report, please contact the number below. ??For patients who have questions please contact the health critical care cns that requested your imaging first. ? Electronically signed by: Yony Mercado MD, [facility] ([phone]), at 02/08/2021 1:46 PM Narrative 02/08/2021 1:46 PM EST EXAMINATION: XR FOOT MIN 3 VIEWS LEFT (GENERIC) CLINICAL HISTORY: left YEE, lateralizing calcaneal osteotomy TECHNIQUE: AP, oblique and lateral of the left foot. COMPARISON: August 17, 2020 FINDINGS: The previously present screws in the calcaneus and talus have now been removed. A calcaneal osteotomy has been performed. The osteotomy site is fixed with two brent. Lucency of at the osteotomy is visible. There is sclerosis at the surgical margins. The calcaneus is well aligned. Degenerative disease is seen in the midfoot and at the tibial talar joint. Enthesophytes are present at the insertion of the Achilles tendon and origin of the plantar fascia on the posterior calcaneus. Procedure Note Yony Mercado MD - 02/08/2021 EXAMINATION: XR FOOT MIN 3 VIEWS LEFT (GENERIC) CLINICAL HISTORY: left YEE, lateralizing calcaneal osteotomy TECHNIQUE: AP, oblique and lateral of the left foot. COMPARISON: August 17, 2020 FINDINGS: The previously present screws in the calcaneus and talus have now beenremoved. A calcaneal osteotomy has been performed. The osteotomy site is fixed withtwo brent. Lucency of at the osteotomy is visible. There is sclerosis atthe surgical margins. The calcaneus is well aligned. Degenerative disease is seen in the midfoot and at the tibial talarjoint. Enthesophytes are present at the insertion of the Achilles tendon andorigin of the plantar fascia on the posterior calcaneus. IMPRESSION Calcaneal osteotomy performed without complication. Thank you for letting us participate in the care of this patient. If youare a health care provider and have any questions regarding this report,please contact the number below. For patients who have questions please contactthe health critical care cns that requested your imaging first. Electronically signed by: Yony Mercado MD, [facility]([phone]), at 02/08/2021 1:46 PM Iris Jackson MD IMG DX ORDERABLES documented in this encounter Visit Diagnoses Diagnosis Acquired left hindfoot varus documented in this encounter Care Teams Dna Analyst Relationship Specialty Start Date End Date Jennifer Suarez APRN [address] [place] [address] PCP - General Family Medicine 07/14/20 11/20/22 documented as of this encounter
--- OUTSIDE RECORDS SUMMARY | 2023-11-15 04:26 | XMS_ITS | Encounter Summary ---
Author Organization Replaced By [facility] [place] [address] Care Team Providers Care Slide Fastener Chain Assembler Name Role Phone Jennifer Suarez APRN Primary Care Provider [phone] Reason for Visit * Auth/Cert Specialty Diagnoses / Procedures Referred By Cheri silverman Referred To Contact Diagnoses Hindfoot varus, acquired retained left subtalar screws, hindfoot varus Procedures PRO REMOVAL DEEP IMPLANT PRO OSTEOTOMY HEEL BONE REMOVAL OF IMPLANT, DEEP, FOOT (WRVU 5.96) OSTEOTOMY, CALCANEUS (WRVU 9.73) MODIFIER 7.3 CANNULATED SCREWS SYNTHES Referral ID Status Reason Start Date Expiration Date Visits Re quested Visits Authorized [id number] 1 1 Encounter Details Date Type Department Care Team (Latest Contact Info) Description 12/01/2020 5:39 AM EDT - 12/01/2020 11:46 AM EDT Hospital Encounter [place] [address] Tio Covarrubias MD [facility] [address] [place] [address] Discharge Disposition: Home Social History Tobacco Use [...] Sign Reading Time Taken Comments Blood Pressure 112/68 12/01/2020 11:15 AM EDT Pulse 64 12/01/2020 7:20 AM EDT Temperature 36 ??C (96.8 ??F) 12/01/2020 9:45 AM EDT Respiratory Rate 16 12/01/2020 11:00 AM EDT Oxygen Saturation 97% 12/01/2020 11:15 AM EDT Inhaled Oxygen Concentration - - Weight 110.7 kg (244 lb) 12/01/2020 6:01 AM EDT Height 165.1 cm (5' 5) 12/01/2020 6:01 AM EDT Body Mass Index 40.6 12/01/2020 6:01 AM EDT documented in this encounter Discharge Instructions * Patient Instructions* Kyle Negrete MD - 12/01/2020 9:25 AM EDT Activity: You can non-weight bearing on your left leg remembering to use crutches or walker at all times for balance and protection. Anticoagulation: Aspirin 81mg twice a day for 30 days. Diet: Resume usual diet, but increase your intake of fluids and fiber while you are on narcotic pain medications to prevent constipation Driving: No, not until you are cleared to do so by your orthopedic surgeon. Ideally you should not drive while on narcotic pain medications as these can affect judgment and reaction time. [facility] [place] any questions/concerns. Medications: 1. The pain medication you are on can cause constipation so increase your intake of fluids and fiber while you are on them. You can take the stool softener, Senakot, that was ordered to facilitate a bowel movement. If needed an osyo-uhw-jdsskuf medication, MiraLAX can also be used to help. 2. If you need a renewal on your narcotic pain medication, you need to give the Orthopedic clinic enough time to process your request. This can take up to three days, so plan accordingly. 3. Continue to take the Tylenol around the clock for the next 10 days. It can be effective in controlling pain along with your other medications. 4. You can take ibuprofen type medications (aleve, advil, motrin, naprosyn, celebrex) in between doses of Tylenol. Take these as written on the package insert. Shower/Bath: Keep your postop splint dry at all times, so cover it with a bag taped at the top. Remember to maintain your activity limitations, so use a chair when showering. DO NOT submerge your dressing or splint. It might be easier to sponge bath until you are seen in follow up. Wound care: Keep your postop splint on until your follow up appointment. Keep it clean and dry. Keep your foot elevated as much as possible to help decrease swelling and control your pain. Call your doctor at [phone] if: You have a fever > 101.5 or experience chills Increased discharge from the incision Any redness or swelling around the incision Increased pain or change in the pain that is not controlled by your pain medications. FOLLOW UP APPOINTMENTS: 1. You [place] [facility] as indicated in Future Appointments and Orders. You will have an x-ray prior to those appointments so please come to Radiology, desk , 1 hour BEFORE your appointment for those x-rays. 2. If you are being discharged over the weekend or at night and do not have a scheduled appointmentwith Orthopaedics, you should be notified about your appointment within the next 1-2 days. Please call if you do not hear about an appointment within that timeframe, as your follow-up is important to us. Future Appointments Date Time Provider Department Center 12/21/2020 4:30 PM Tio Covarrubias MD [facility] [place] [address] [place] [address] documented in this encounter Medications at Time [...] while taking ibuprofen 30 tablet 11/22/2021 01/06/2022 HYDROmorphone (Dilaudid) 2 mg Tablet Take 1 tablet by mouth once for 1 dose. 20 tablet 12/01/2020 12/01/2020 aspirin EC 81 mg Tablet, Delayed Release [...] 10/14/2015 11/22/2021 documented as of this encounter Progress Notes * Marisol Soto RN - 12/01/2020 11:42 AM EDT Patient alert and oriented, vital signs stable. Reviewed discharge instructions; patient and verbalized understanding. Copy of instruction sheet with contact numbers for questions/concerns with . Pain assessment documented. Splint in place, no drainage. IV removed. Patient escorted out of department via wheelchair with staff. * Tonio Sanchez RN - 12/01/2020 11:30 AM EDT AVS reviewed with pt and with good understanding. LLE elevated on pillows with ice for comfort. Pt reports having crutches in the car. IV removed without difficulty. Pt meets discharge criteria at this time. Pt discharged home with . Fritz LEWIS documented in this encounter H&P Notes * Tio Covarrubias MD - 12/01/2020 5:58 AM EDT The patient's history and physical exam have been reviewed and completed. There has been no interval change from that of the pre-operative history and physical exam done within the last 30 days. RRR w/o R/M/G LCTAB Kyle Negrete MD Orthopaedic Surgery I spoke with and examined the patient on the date of the primary author's note, prior to proceedingto the operating room. I agree with the primary author's assessment and plan. I reviewed the risks,benefits, alternatives to, and recovery from the proposed procedure. I confirmed the correct operative site. The patient expressed understanding of the operative plan and wished to proceed with operative treatment. Tio Covarrubias MD MS Orthopaedic Surgery Attending documented in this encounter Miscellaneous Notes * Op Note - Tio Covarrubias MD - 12/01/2020 8:01 AM EDT [facility] [place] Patient Name: Susan Whitney : [id number] MR#: [id number] Case Date: 12/01/2020 Surgeon: Surgeon(s) and Role: * Tio Covarrubias MD - Primary * Kyle Negrete MD - Resident * Trey Medley MD - Resident Preoperative diagnosis: Retained left subtalar screws, hindfoot varus Postoperative diagnosis: Retained left subtalar screws, hindfoot varus Procedure(s) (LRB): REMOVAL OF 2 SCREWS, DEEP, FOOT, BONE GRAFTING SCREW HOLES(WRVU 5.96) (Left) LATERALIZING CLOSING WEDGE OSTEOTOMY, CALCANEUS (WRVU 9.73) (Left) Anesthesia: General Estimated Blood Loss: 5 CC Specimens removed during surgery: None Drains: * [...] and Specimen details pertinent to this patient.) HPI/Surgical Indications: The patient is a 50-year-old female who is status post left subtalar fusion with 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 After thorough discussionof the risks and benefits, she elected to proceed with a staged procedure, beginning with removal of her hardware, bone grafting of her screw holes, and lateralizing calcaneal osteotomy. The plan will be for total ankle arthroplasty in approximately 6 months time after this procedure. Procedure Description: After being identified, marked, and having preoperative consent confirmed inthe preoperative holding area, the patient proceeded to the operative theater. A preoperative timeout was held the patient received preoperative antibiotics. LMA anesthesia was induced. She was placed in right lateral decubitus position with all bony prominences well-padded. An axillary roll was placed. A beanbag was used to stabilize her. A high left thigh tourniquet was placed. Her left leg wasprepped and draped in a sterile fashion. Her leg was elevated, exsanguinated, and the tourniquet inflated 250 mmHg where it stayed for approximately 1 hour for the entirety of the case. We began by making a 3 cm incision along the posterior aspect of her heel. We dissected down to thescrew heads traversing her subtalar joint from the posterior tuberosity of the calcaneus. We identified the screws and remove them in their entirety. We then used a small tamp and cancellous bone chips to fill the screw holes with cancellous bone into the talus. We then made a secondary incision over the lateral aspect of the calcaneus. We dissected down to the lateral wall of the calcaneus and cleared it of soft tissue. We then used K wires to localize our trajectory for a closing wedge osteotomy lateralizing the posterior tuberosity of the calcaneus. We adjusted the position of our wires and then used them to create a wedge of bone which we removed. We closed down the osteotomy, shifting the insertion of the Achilles laterally. We used 2 brent to secure the osteotomy. Final x-rays showed good alignment and hardware placement. We copiously irrigated both wounds. We closed the wounds in layers with deep Vicryls and nylons for the skin. A dry sterile dressing and a well- padded splintreplaced. The patient's anesthesia was reversed and she was discharged the PACU in stable condition. Plan moving forward will be for nonweightbearing for full 6 weeks and planning for total ankle arthroplasty in the future. Implant Name Type Inv. Item Serial No. Claim Professional Lot No. LRB No. Used Action GRAFT BONE FILLER [id number] CHIPS CANC PRESERVON READIGRAFT ([id number]) (AutoReq) - [id number] IMPLANTS GRAFT BONE FILLER [id number] CHIPS CANC PRESERVON READIGRAFT ([id number]) (AutoReq) [facility] Left 1 Implanted STAPLE [id number] COMP NITINOL SPEED TITAN ([id number]) (AutoReq) - [id number] IMPLANTS STAPLE [id number] COMP NITINOL SPEED TITAN ([id number]) (AutoReq) [employer] GABY [id number] Left 1 Implanted STAPLE [id number] COMP NITINOL SPEED TITAN ([id number]) (AutoReq) - [id number] IMPLANTS STAPLE [id number] COMP NITINOL SPEED TITAN ([id number]) (AutoReq) [employer] [facility]LY [facility] GABY [id number] Left 1 Implanted K WIRE FIX [id number] TROCAR POINT THREADED BT END SS ([id number]) - [id number] IMPLANTS K WIRE FIX [id number] TROCAR POINT THREADED BTH END SS ([id number]) [employer] Left 1 Implanted and Explanted PIN FIX 7/64X9IN TROCAR POINT SGL END SS STEINSANTOS ([id number]) - [id number] IMPLANTS PIN FIX 7/[id number] POINT SGL END SS STEINMANN ([id number]) [employer] Left 1 Implanted and Explanted PIN FIX 5/32X9IN TROCAR POINT SGL END SS STEINMANN ([id number]) - [id number] IMPLANTS PIN FIX 5/[id number] POINT SGL END SS STEINMANN ([id number]) [employer] Left 1 Implanted and Explanted Infection Bundle used? N/A Attestation: Case Date: 12/01/2020 I was present and I participated during the entire procedure (does not need to include opening and closing). TIO COVARRUBIAS MD 12/01/2020 documented in this encounter Plan of Treatment Upcoming Encounters Date Type Department Care Team (Late st Contact Info) Description 12/04/2023 8:00 AM EDT Office Visit [place] [address] Cyn Murphy, PT [facility] PHYSICAL MEDICINE & [place] [address] 12/04/2023 10:45 AM EDT Appointment XRay at [address] [place] [address] 12/04/2023 11:40 AM EDT Office Visit Orthopaedics at [place] [phone] Jennifer Stanley APRN [facility] [place] [address] documented as of this encounter Procedures Procedure Name Priority Date/Time Associated Diagnosis Comments XR FLUORO NO RAD <1HR - OR USE Routine 12/01/2020 9:21 AM EDT MODIFIER 7.3 CANNULATED SCREWS SYNTHES 12/01/2020 7:34 AM EDT retained left subtalar screws, hindfoot varus Osteotomy Heel Bone (57461) 12/01/2020 7:34 AM EDT retained left subtalar screws, hindfoot varus Removal Deep Implant ([id number]) 12/01/2020 7:34 AM EDT retained left subtalar screws, hindfoot varus REMOVAL OF IMPLANT,FOOT Routine 12/01/2020 5:53 AM EDT OSTEOTOMY, CALCANEUS Routine 12/01/2020 5:53 AM EDT IMPLANTABLE DEVICES SCAN 12/01/2020 12:00 AM EDT documented in this encounter Results * XR Fluoro No Rad <1Hr - OR Use (12/01/2020 9:21 AM EDT) Narrative Dicom, Auditing User - 12/01/2020 9:22 AM EDT This exam is auto-finalizing. No interpretation was done. Tio Covarrubias MD IMG FLUORO ORDERABLE S * SCAN DOC: IMPLANTABLE DEVICES (12/01/2020 12:00 AM EDT) Unknown MEDIA MGR SCAN EXT O RDR/RSLT documented in this encounter Visit Diagnoses Not on filedocumented in this encounter Administered Medications Inactive Administered Medications - up to 3 most recent administrations Medication Order MAR Action Action Date Dose Rate Site fentaNYL (PF) (50 mcg/mL) injection 50 mcg 50 mcg, Intravenous, EVERY 5 MIN PRN, Starting on Sun12/01/20 at 0637, Until Sun12/01/20 at 0722, Pain, or prior to injection of local anesthetic., Hold for respiratory rate less than 8 breaths per minute. (maximum dose 200 mcg), Day of Surgery (Day of Procedure), Routine Given 12/01/2020 7:05 AM EDT 50 mcg Given 12/01/2020 7:00 AM EDT 50 mcg HYDROmorphone (Dilaudid) tablet 2 mg 2 mg, Oral, ONCE, 1 dose, On Sun12/01/20 at 0945, Routine Given 12/01/2020 10:21 AM EDT 2 mg lactated ringers infusion 1,000 mL, at 100 mL/hr, Intravenous, CONTINUOUS, Starting on Sun12/01/20 at 0615, Until Sun12/01/20 at 1145, Day of Surgery (Day of Procedure) New Bag 12/01/2020 7:34 AM EDT New Bag 12/01/2020 6:22 AM EDT 1,000 mLs 100 mL/hr midazolam (pf) (Versed) (1 mg/mL) injection 1 mg 1 mg, Intravenous, EVERY 5 MIN PRN, Starting on Sun12/01/20 at 0557, Until Sun12/01/20 at 0722, Other, Sedation or prior to injection of local anesthetic, Hold for delirium/agitation. (Maximum dose 5 mg)., Day of Surgery (Day of Procedure), Routine Given 12/01/2020 7:05 AM EDT 1 mg Given 12/01/2020 7:00 AM EDT 1 mg scopolamine (Transderm Scop) 1 mg over 3 days patch 1 patch 1 patch, Transdermal, ONCE, 1 dose, On Sun12/01/20 at 0715, Day of Surgery (Day of Procedure), Routine Patch Applied 12/01/2020 7:15 AM EDT 1 patch 02- Ear Behind (Right) documented in this encounter Active and Recently Administered Medications Times are shown in EDT. Scheduled Medication Order 11/29/2020 11/30/2020 12/01/2020 ceFAZolin (Ancef) 2 g in dextrose 5% 100 mL (2 x 1 g/50 mL premix bags) infusion (COMPLETED) 2 g, Intravenous, EVERY 3 HOURS, 1 dose, First dose on Sun12/01/20 at 0615, Administer over 30 Minutes, Redose after 3 hours. Total dose of ceFAZolin 2 grams, administered using two ceFAZolin 1g/50mL IV bags. Infuse each ceFAZolin 1g/50mL bag over 30 minutes (100 ml/hr) for total infusion time of 60 minutes. On the MAR, document administration of first bag using New Bag (1 of 2) MAR action for dose of 1g. On the MAR, document administration of second bag using Next Bag (2 of 2) MAR action for dose of 1g (resulting in total dose of 2g)., Intra-Operative (Intra-Procedure), Indication for (Active or Suspected): Prophylaxis 49 (Given - Provid er: Skye Gale) HYDROmorphone (Dilaudid) tablet 2 mg (COMPLETED) 2 mg, Oral, ONCE, 1 dose, On Sun12/01/20 at 0945, Routine 1021 (Given - Provid er: Tonio Sanchez RN) scopolamine (Transderm Scop) 1 mg over 3 days patch 1 patch (COMPLETED) 1 patch, Transdermal, ONCE, 1 dose, On Sun12/01/20 at 0715, Day of Surgery (Day of Procedure), Routine 0715 (Patch Applied - Provider: Amanda Duque RN) Continuous Medication Order 11/29/2020 11/30/2020 12/01/2020 lactated ringers infusion (CANCELED) 1,000 mL, at 100 mL/hr, Intravenous, CONTINUOUS, Starting on Sun12/01/20 at 0615, Until Sun12/01/20 at 1145, Day of Surgery (Day of Procedure) 0622 (New Bag - Prov ider: Amanda Duque RN)0733 (Paused - Provider: Skye Gale - Comment: Switch to gravity)0734 (New Bag - Provider: Skye Gale)0904 (Anesthesia Volume Adjustment - Provider: Iwona Zaragoza CRNA)0948 (Stopped - Provider: Iwona Zaragoza CRNA) PRN Medication Order 11/29/2020 11/30/2020 12/01/2020 fentaNYL (PF) (50 mcg/mL) injection 50 mcg (CANCELED) 50 mcg, Intravenous, EVERY 5 MIN PRN, Starting on Sun12/01/20 at 0637, Until Sun12/01/20 at 0722, Pain, or prior to injection of local anesthetic., Hold for respiratory rate less than 8 breaths per minute. (maximum dose 200 mcg), Day of Surgery (Day of Procedure), Routine 0700 (Given - Provid er: Aamnda Duque RN)0705 (Given - Provider: Amanda Duque RN) midazolam (pf) (Versed) (1 mg/mL) injection 1 mg (CANCELED) 1 mg, Intravenous, EVERY 5 MIN PRN, Starting on Sun12/01/20 at 0557, Until Sun12/01/20 at 0722, Other, Sedation or prior to injection of local anesthetic, Hold for delirium/agitation. (Maximum dose 5 mg)., Day of Surgery (Day of Procedure), Routine 0700 (Given - Provid er: Amanda Duque RN)0705 (Given - Provider: Amanda Duque RN) documented in this encounter Care Teams Slide Fastener Chain Assembler Relationship Specialty Start Date End Date Jennifer Suarez, CLAIM PROFESSIONAL [address] [place] [address] PCP - General Family Medicine 07/14/20 11/20/22 documented as of this encounter
--- OUTSIDE RECORDS SUMMARY | 2023-11-15 04:26 | XMS_ITS | Encounter Summary ---
Author Organization [facility] [place] [address] Care Team Providers Care Bow Repairer Custom Name Role Phone Jennifer Suarez APRN Primary Care Provider [phone] Encounter Details Date Type Department Care Team (Late st Contact Info) Description 12/02/2020 [place] [phone] Gregoria Buchanan MD [facility] [place] [address] Social History Tobacco Use Types Packs/Day Years [...] as of this encounter Progress Notes * Gregoria Buchanan MD - 12/02/2020 11:19 AM EDT REGIONAL NERVE BLOCK FOLLOW-UP I spoke to patient via telephone. Peripheral nerve block resolved appropriately. No residual weakness/numbness/decreased sensation. No sign of infection at injection site. Patient very satisfied withnerve block. If there are any questions or concerns regarding the nerve block, please do not hesitate to contactthe regional anesthesia team. documented in this encounter Plan of Treatment Upcoming Encounters Date Type Department Care Team (Late st Contact Info) Description 12/04/2023 8:00 AM EDT Office [place] [address] Cyn Murphy, PT [facility] PHYSICAL MEDICINE & [place] [address] 12/04/2023 10:45 AM EDT Appointment XRay at [address] [place] [address] 12/04/2023 11:40 AM EDT Office [place] [address] Jennifer Stanley, GAS UTILITY WORKER [facility] [address] documented as of this encounter Visit Diagnoses Not on filedocumented in this encounter Care Teams Bow Repairer Custom Relationship Specialty Start Date End Date Jennifer Suarez APRN [address] [place] [address] PCP - General Family Medicine 07/14/20 11/20/22 documented as of this encounter
--- OUTSIDE RECORDS SUMMARY | 2023-11-15 04:26 | XMS_ITS | Encounter Summary ---
Author Organization [facility] [place] [address] Care Team Providers Care Sales Support Consultant Name Role Phone Jennifer Suarez APRN Primary Care Provider [phone] Reason for Visit * Auth/Cert Specialty Diagnoses [...] Expiration Date Visits Re quested Visits Authorized [id number] 1 1 Encounter Details Date Type Department Care Team (Late st Contact Info) Description 12/01/2020 7:31 AM EDT Anesthesia Event [place] [phone] Lambert Patino MD [facility] [place] [address] Gregoria Buchanan MD [facility] [place] [address] Anesthesia Record Procedure Summary Procedure Name Responsible Anesthesiologist Anesthesia Start Time Anesthesia Stop Time REMOVAL OF IMPLANT, DEEP, FOOT (WRVU 5.96) (Left: Foot) Lambert Patino MD 12/01/20 0731 12/01/20 0948 Events Date Time Event Comment 12/01/2020 0722 0731 AN Verify 0731 Start 0732 Quick Note Left hearing ai d secured with pt's . Right hearing aid removed in OR and secured with pt's glasses. 0734 An Start Data 0735 An Induction 0737 An Intubation 0737 Anesthesia Ready 0749 Quick Note Time out perfor med 0800 An Tourn Inflated 250mmHg 0803 Skin Incision 0929 An Tourn Deflated 0938 Extubation/LMA Out 0938 an stop data 0947 Recovery or ICU Handoff Cynthia ent care was transferred to the destination unit staff after review of the patient's medical history, current anesthetic/surgical status and plan, according to the Provider Handoff Checklist. 0948 Stop Meds Name Total BUpivacaine 0.5% 30 mL Propofol 200 mg IV Lidocaine 60 mg Dexamethasone 4 mg Ondansetron 8 mg ceFAZolin (Ancef) 2 g in dex trose 5% 100 mL (2 x 1 g/50 mL premix bags) infusion 2 g Dexmedetomidine 8 mcg lactated ringers infusion 400 mL * Agents Name O2 Air N2O Sevoflurane (et) * Blood No blood administrations on file. Lines, Drains, and Airways Type Details Placement Removal Incision 12/01/20; Left; heel 12/01/20 00 00 by Shae Kitchen, RN (RETIRED) Peripheral IV Line - Single Lumen 12/01/20; 620; basilic vein (medial side of arm), left; pwvg-vqm-zhlgel catheter system; 22 gauge; distraction, tolerated well; no longer indicated, removed per policy/procedure, site care per policy/procedure, catheter/device intact; 12/01/20; 1140 12/01/20 0621 by Amanda Duque RN 12/01/20 1140 by Marisol Soto, RN Supraglottic Mask Ventilation: No t Attempted (0); LMA Type: iGel; LMA Size: 4; Inserted by: jef bustamante; Removal Date: 12/01/20; Removal Time: 93712/01/20 07 by Skye Badillo 12/01/20 09 by Iwona Zaragoza CRNA documented in this encounter Social History [...] OR Notes * Anesthesia Postprocedure Evaluation - Lambert Patino MD - 12/01/2020 2:19 PM EDT Department of Anesthesiology Post-procedure Note Patient: Susan Whitney Procedure Summary Date: 12/01/20 Room / Location: [facility] OR [facility] MAIN OR Anesthesia Start: 730 Anesthesia Stop: 947 Procedures: REMOVAL OF IMPLANT, DEEP, FOOT (WRVU 5.96) (Left Foot) OSTEOTOMY, CALCANEUS (WRVU 9.73) (Left Ankle) MODIFIER 7.3 CANNULATED SCREWS SYNTHES (Left Foot) Diagnosis: (retained left subtalar screws, hindfoot varus) Surgeons: Tio Mayo MD Responsible Provider: Lambert Patino MD Anesthesia Type: general ASA Status: 3 All Anesthesia Providers: Anesthesiologist: Lambert Patino MD [employer] OPERATOR: Iwona Zaragoza CRNA Student Nurse Hat Checker: Skye Gale Vitals Value Taken Time BP 112/68 12/01/20 1115 Temp 36 ??C (96.8 ??F) 12/01/20 0945 Pulse Resp 16 12/01/20 1100 SpO2 98 % 12/01/20 1123 Pain Level 5 12/01/20 1021 Vitals shown include unvalidated device data. Patient Location: PACU/[facility] Level of Consciousness: Awake and Alert Pain Management: Satisfactory Analgesia PONV: None Cardiovascular Status: Hemodynamically Stable Respiratory Status: Stable Respiratory Status Postoperative Fluid Status: Intravascular EUvolemia Possible Anesthetic Complications: NONE apparent at time of evaluation Final Primary Anesthesia Type: General (The anesthetic type performed was the same as planned.) Comments: * Anesthesia Procedure Notes - Gregoria Buchanan MD - 12/01/2020 7:17 AM EDT Associated Order(s): Anesthesia Block Anesthesia Block Date/Time: 12/01/2020 7:12 AM Performed by: Gregoria Buchanan MD Authorized by: Freddie Lyle MD Start Time: 12/01/2020 7:05 AM End Time: 12/01/2020 7:12 AM Patient Location: Block Room The patient [...] local anesthetic was confirmed with live ultrasound imaging.?? Single-Shot: Single-shot Local Anesthetic Volume(s) Injected for Nerve Block: BUpivacaine 0.5%, 30 mL Nerve Sensory/MotorTest: Events: no complications Staff: Fellow:: Gregoria Buchanan MD Attending Physician:: Freddie Lyle MD Notes: Popliteal/Sciatic - 20mls Saphenous - 10mls * Anesthesia Preprocedure Evaluation - Lambert Patino MD - 11/30/2020 8:11 AM EDT Images from the original note were not included. Pre-Anesthesia Evaluation for: Susan Whitney a 50 y.o. female. Procedure(s): REMOVAL OF IMPLANT, DEEP, FOOT (WRVU 5.96) OSTEOTOMY, CALCANEUS (WRVU 9.73) MODIFIER 7.3 CANNULATED SCREWS SYNTHES Patient Active Problem List Diagnosis ??? Arthritis of left ankle ??? Left foot pain Past Medical History: Diagnosis Date ??? Allergy ??? Arthritis of left ankle 10/13/2020 ??? Asthma ??? Complex regional pain syndrome i of right upper limb ??? Deafness in left ear Past Surgical History: Procedure Laterality Date ??? SECTION ??? ECTOPIC SURGERY x 2 ??? ORTHOPEDIC SURGERY ??? TUBAL LIGATION ??? XR FLUORO INJECTION DRAINAGE JOINT MD LEFT Left 09/06/2020 XR Fluoro Guided Joint Injection Medium Left 09/06/2020 Janell Shah, OPERATIONS CHIEF [facility] RAD XRAY Social History Tobacco Use ??? Smoking status: Never Smoker ??? Smokeless tobacco: Never Used Substance Use Topics ??? Alcohol use: Yes Comment: rarely Social History Substance and Sexual Activity Drug Use No Allergies Allergen Reactions ??? Latex ??? Adhesive Other reaction(s): Skin Rash ??? Nsaids (Non-Steroidal Anti-Inflammatory Drug) Other reaction(s): d/t vertical sleeve gastectomy ??? Codeine Low blood pressure ??? Demerol [Meperidine] ??? Percocet [Oxycodone-Acetaminophen] ??? Phenergan [Promethazine] ??? Simethicone ??? Vicodin [Hydrocodone-Acetaminophen] Medications: MAR and/or home medications have been reviewed. Physical Exam: Preprocedure Vitals Current as of 11/30/20 0811 No BP, pulse, respiration, SpO2, or temperature recorded. Height: 165.1 cm (5' 5) (10/12/20) Weight: 112.7 kg (248 lb 7.3 oz) (10/12/20) BMI: 41.34 IBW: 57 kg (125 lb 10.6 oz) Airway Assessment: Mallampati: I TM distance: >3 FB Neck ROM: full Cardiovascular Assessment: Rhythm: regular Rate: normal Pulmonary Assessment: unlabored breathing Dental Assessment: (+) upper dentures Misc Assessment: IV access: Peripheral line Last Filed Perioperative Cognitive Screening None Anesthesia Plan: ASA 3 general, with a(n) intravenous induction 50 y.o., 112kg female with presenting for removal of left foot implant and osteotomy PMH significant for asthma, CRPS of RUE, and deafness in L ear. Allergies: Latex -- Adhesive -- Other reaction(s): Skin Rash -- Nsaids (Non-Steroidal Anti-Inflammatory Drug) -- Other reaction(s): d/t vertical sleeve gastectomy -- Codeine -- Low blood pressure -- Demerol (Meperidine) -- Percocet (Oxycodone-Acetaminophen) -- Phenergan (Promethazine) -- Simethicone -- Vicodin (Hydrocodone-Acetaminophen) Anesthetic hx: PONV Airway hx: no records EKG: none ECHO: none Reports Holter monitor at the end of May with PVCs Anesthetic Plan: ASA 3 Hx of PONV - preop scop patch Multiple opioid allergies - tolerates Morphine ASA standard monitoring GA Preop pop/saph block Informed Consent: Anesthetic plan and risks discussed with patient. Plan discussed with attending. Anesthesia Screening documented in this encounter Plan of Treatment Upcoming Encounters Date Type Department Care Team (Late st Contact Info) Description 12/04/2023 8:00 AM EDT Office [place] [phone] Cyn Murphy, PT [facility] PHYSICAL MEDICINE & [place] [address] 12/04/2023 10:45 AM EDT Appointment XRay at [address] [place] [address] 12/04/2023 11:40 AM EDT Office Visit Orthopaedics at [place] [address] Jennifer Stanley, OPERATIONS CHIEF [facility] [place] [id number] documented as of this encounter Procedures Procedure Name Priority Date/Time Associated Diagnosis Comments ANESTHESIA BLOCK Routine 12/01/2020 7:12 AM EDT documented in this encounter Results * Anesthesia Block (12/01/2020 7:12 AM EDT) Narrative Freddie Lyle MD - 12/01/2020 7:12 AM EDT Gregoria Buchanan MD ? 12/01/2020 ??7:19 AM Anesthesia Block Date/Time: 12/01/2020 7:12 AM Performed by: Gregoria Buchanan MD Authorized by: Freddie Lyle MD Start Time: ??12/01/2020 7:05 AM End Time: ??12/01/2020 7:12 AM Patient Location: ??Block Room The patient [...] local anesthetic was confirmed with live ultrasound imaging.?Single-Shot: ??Single-shot Local Anesthetic Volume(s) Injected for Nerve Block: ?? BUpivacaine 0.5%, 30 mL Nerve Sensory/MotorTest: ??Events: no complications ?? Staff: ??Fellow:: ??Gregoria Buchanan MD ??Attending Physician:: ??Freddie Lyle MD Notes: ?? Popliteal/Sciatic - 20mls Saphenous - 10mls Freddie Lyle MD [employer] [facility] documented in this encounter Visit Diagnoses Not on filedocumented in this encounter Administered Medications Inactive Administered Medications - up to 3 most recent administrations Medication Order MAR Action Action Date Dose Rate Site BUpivacaine (pf) (Marcaine) (5 mg/mL) 0.5% injection Perineural, Starting on Sun12/01/20 at 0712, Until Sun12/01/20 at 0712, Anesthesia Intra-op, Routine Given 12/01/2020 7:12 AM EDT 30 mLs ceFAZolin (Ancef) 2 g in dextrose 5% 100 mL (2 x 1 g/50 mL premix bags) infusion 2 g, Intravenous, EVERY 3 HOURS, 1 dose, First dose on Sun12/01/20 at 0615, Administer over 30 Minutes, Redose after 3 hours. Total dose of ceFAZolin 2 grams, administered using two ceFAZolin 1g/50mL IV bags. Infuse each ceFAZolin 1g/50mL bag over 30 minutes (100 ml/hr) for total infusion time of 60 minutes. On the MAY, document administration of first bag using New Bag (1 of 2) MAR action for dose of 1g. On the MAY, document administration of second bag using Next Bag (2 of 2) MAR action for dose of 1g (resulting in total dose of 2g)., Intra-Operative (Intra-Procedure), Indication for (Active or Suspected): Prophylaxis Given 12/01/2020 7:49 AM EDT 2 g dexamethasone (Decadron) injection Intravenous, PRN, Starting on Sun12/01/20 at 0747, Until Sun12/01/20 at 0948, Anesthesia Intra-op, Routine Given 12/01/2020 7:47 AM EDT 4 mg dexmedetomidine (Precedex) (4 mcg/mL) bolus injection (Anesthsia) Intravenous, PRN, Starting on Sun12/01/20 at 0905, Until Sun12/01/20 at 0948, Anesthesia Intra-op, Routine Given 12/01/2020 9:05 AM EDT 8 mcg lactated ringers infusion 1,000 mL, at 100 mL/hr, Intravenous, CONTINUOUS, Starting on Sun12/01/20 at 0615, Until Sun12/01/20 at 1145, Day of Surgery (Day of Procedure) New Bag 12/01/2020 7:34 AM EDT New Bag 12/01/2020 6:22 AM EDT 1,000 mLs 100 mL/hr lidocaine (pf) (Xylocaine) (20 mg/mL) 2% injection syringe Intravenous, PRN, Starting on Sun12/01/20 at 0735, Until Sun12/01/20 at 0948, Anesthesia Intra-op, Routine Given 12/01/2020 7:35 AM EDT 60 mg ondansetron (pf) (Zofran) (2 mg/mL) injection Intravenous, PRN, Starting on Sun12/01/20 at 0754, Until Sun12/01/20 at 0948, Anesthesia Intra-op, Routine Given 12/01/2020 9:12 AM EDT 4 mg Given 12/01/2020 7:54 AM EDT 4 mg propofoL (Diprivan) 10 mg/mL bolus injection (Anesthesia) Intravenous, PRN, Starting on Sun12/01/20 at 0735, Until Sun12/01/20 at 0948, Anesthesia Intra-op Given 12/01/2020 7:35 AM EDT 200 mg documented in this encounter Care Teams Sales Support Consultant Relationship Specialty Start Date End Date Jennifer Suarez, OPERATIONS CHIEF [address] [place] [address] PCP - General Family Medicine 07/14/20 11/20/22 documented as of this encounter
--- OUTSIDE RECORDS SUMMARY | 2023-11-15 04:26 | XMS_ITS | Encounter Summary ---
Author Organization [facility] [address] Care Team Providers Care R D Internship Name Role Phone Adarsh Wynn MD Primary Care Provider [phone] Encounter Details Date Type Department Care Team (Latest Contact Info) Description 07/20/2015 3:15 PM EDT Office Visit Audiology at [address] [phone] Ayleen Youngblood AUD [facility] [place] [address] Asymmetrical sensorineural hearing loss; Tinnitus, bilateral Social History Tobacco Use Types Packs/Day Years Used Date Smoking Tobacco: Never Assessed Sex and Gender Information Value Date Recorded Sex Assigned at Not on file Gender Identity Female 08/10/2020 7:17 AM EDT Sexual Orientation Straight 08/10/2020 7: 16 AM EDT documented as of this encounter Progress Notes * Ayleen Youngblood AUD - 07/20/2015 2:55 PM EDT AUDIOLOGY Susan Whitney was seen today for a transfer of care Baha appointment. She was accompanied by her . Ms. Whitney reported the following information: ?? Longstanding profound sensorineural hearing loss in the left ear, identified at the age of 3. ?? Hearing in the right ear has been stable until 2011, at which time she began experiencing vertigo and fluctuating hearing. The hearing seems to have stabilized. She also has constant tinnitus thatcan fluctuate in intensity on a daily basis. ?? Surgery for left Baha placement performed at [facility] in 2005. ?? Initially used the Baha Divino sound processor and was very pleased with the benefit it provided. She gradually noticed decreased benefit from the device. She is a part of a [employer] group for implant recipients. The BP110 Power sound processor was recommended to her, and one of the group members donated her BP110 power device to her. She has been using it with the original recipient's programming for approximately one year. It provides some sound awareness, but it is still not as beneficialas the Divino originally was. ?? 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 It is noisy (but not as noisy aswhere she worked in [place]). She has difficulty understanding speech if she is not facing the speaker. Her also reports that she has difficulty understanding him at home. ?? Uses a Audibel (owned by [employer]) baker doughnut in the ear hearing aid in the right ear. The hearing aid programming is managed by a provider in [place]. She typically uses the hearing aid programming at the loudest program (P3), at the highest volume level. ?? Scheduled to consult with Dr. Clarke in September due to inflammation, bleeding and soreness aroundthe Baha post. This has been occurring on and off since 2011. The following actions were taken: ?? Inspection of the abutment site showed no evidence of redness/ irritation today. ?? A listening check of the BP110 Power sound processor indicated that it was functioning well. ?? The Baha sound processor was programmed using [employer]. Ms. Whitney stated that it was difficult for her to determine how much louder it made sounds directed towards the left side. Ms. Whitney was counseled that the Baha BP110 Power sound processor is at the upper limits of the amplification it can provide due to the degree of hearing loss in the right ear. The Baha 5 Super Power sound processor is recommended should Ms. Whitney pursue a replacement device in the future. ?? A listening check of the right hearing aid indicated that it was functioning appropriately. Hearing aid responses were below prescriptive targets for speech in Ms. Whitney's preferred listening program. Ms. Whitney was counseled that a more powerful amplifier with a custom earmold is recommended to increase speech audibility (particularly for soft speech) without feedback. Test Box measures wereobtained should a loaner need to be programmed in the future. RECOMMENDATIONS: ?? Consult with Dr. Clarke, as scheduled in September ?? Return to clinic for hearing re-evaluation and Baha check in one year, sooner if concerns arise in the interim. ?? Ms. Whitney is a candidate for a more powerful Baha sound processor on the left side. It is recommended that she contact [employer]'s Reimbursement Services to inquire on potential insurance coverage (she does not think her insurance covers Baha replacement equipment). [place] [employer] may also be a source of potential funding. Please do not hesitate to contact this Section at [phone] if there are questions regarding this report or its recommendations. Nazia Ramos Clinical [employer] [place] [address] ; AMPLIFICATION DEVICE(S): HEARING AID RIGHT LEFT Make/Model/Style Audibel hearing aid (managed at outside clinic) [employer] BP110 Power Casing Color [place] Faceplate Serial Number [id number] Battery Size/Battery Club 675 Invoice number / date PROGRAM/SETTINGS Fitting Algorithm BC Direct Verification Method Programs P1= Everyday P2= Noise, Directional Microphone Disabled Features Other WARRANTY Original Fit Date Unknown- original programming at [facility] performed on 07/20/15 Current Status Unknown (likely out of warranty) [employer] Make/Model Color Serial Number Invoice number/date documented in this encounter Plan of Treatment Upcoming Encounters Date Type Department Care Team (Late st Contact Info) Description 12/04/2023 8:00 AM EDT Office [place] [phone] Cyn Murphy, PT [facility] PHYSICAL MEDICINE & [place] [address] 12/04/2023 10:45 AM EDT Appointment XRay at [address] [place] [address] 12/04/2023 11:40 AM EDT Office [place] [address] Jennifer Stanley APRN [facility] [place] [address] documented as of this encounter Visit Diagnoses Diagnosis Asymmetrical sensorineural hearing loss Sensorineural hearing loss, asymmetrical Tinnitus, bilateral Unspecified tinnitus documented in this encounter Care Teams R D Internship Relationship Specialty Start Date End Date Adarsh Wynn MD [facility] [address] [place] [address] PCP - General General Internal Medicine 05/25/1507/24 documented as of this encounter
--- OUTSIDE RECORDS SUMMARY | 2023-11-15 04:26 | XMS_ITS | Encounter Summary ---
Author Organization [facility] Address [facility] [place] [address] Care Team Providers Care Beaver Trapper Name Role Phone Jennifer Suarez APRN Primary Care Provider [phone] Reason for Referral * Physical Therapy (Routine) - Closed Specialty Diagnoses / Procedures Referred By Cheri silverman Referred To Contact Diagnoses Acquired left hindfoot varus Karey De PA [facility] [place] [address] Referral ID Status Reason Start Date Expiration Date V isits Requested Visits Authorized [id number] Closed Evaluate and Treat 02/08/2021 08/07/2021 1 1 Reason for Visit * Reason Comments Follow Up Surgery s/p YEE L Subtalar S crew DOS 12/01/2020 Encounter Details Date Type Department Care Team (Late st Contact Info) Description 02/08/2021 2:30 PM EST Office [place] [address] Karey De PA [facility] [place] [address] Acquired left hindfoot varus Social History Tobacco [...] Sign Reading Time Taken Comments Blood Pressure 120/67 02/08/2021 2:12 PM EST Pulse 82 02/08/2021 2:12 PM EST Temperature - - Respiratory Rate - - Oxygen Saturation - - Inhaled Oxygen Concentration - - Weight 113.4 kg (250 lb) 02/08/2021 2:12 PM EST reported Height 165.1 cm (5' 5) 02/08/2021 2:12 PM EST Body Mass Index 41.6 02/08/2021 2:12 PM EST documented in this encounter Progress Notes * Karey De PA - 02/08/2021 2:30 PM EST Images from the original note were not included. PATIENT NAME: Susan Whitney AGE: 50 y.o. MR#: [id number] DATE OF VISIT: 02/08/2021 CHIEF COMPLAINT: 10 week check 12/01/20 (Gael) LEFT YEE 2 screws, Lateralizing closing wedge osteotomyof the calcaneous ?? HISTORY OF PRESENT ILLNESS: Ms. Whitney is a 50 y.o. female who comes into clinic today for evaluation of the LEFT ankle. The PT was last in to see myself on 01/07/2021 . Since this visit she has been doing well. She has been staying off of the foot. She had been TDWB. She had some sensitivity on the lateral incision. She has had CRPS on the RIGHT upper extremity and has been working on desensitization. Past medical history: Patient Active Problem List [...] Skin Rash, itchy tongue, respiratory distress ??? Promethazine Hcl Other reaction(s): chest tightness/SOB ??? Adhesive Rash Other reaction(s): Skin Rash ??? Hydrocodone Hives ??? Meperidine Hives ??? Nsaids (Non-Steroidal Anti-Inflammatory Drug) Other reaction(s): d/t vertical sleeve gastectomy Other reaction(s): d/t vertical sleeve gastectomy ??? Oxycodone Hives ??? Codeine Low blood pressure ??? Percocet [Oxycodone-Acetaminophen] ??? Phenergan [Promethazine] ??? Simethicone ??? Vicodin [Hydrocodone-Acetaminophen] Social history: Social History Tobacco Use ??? Smoking status: Never Smoker ??? Smokeless tobacco: Never Used Substance Use Topics ??? Alcohol use: Yes Comment: rarely Review of systems: No chest pain or shortness of breath No fevers, night sweats or chills Vital signs: Visit Vitals BP 120/67 (BP Location (NBP): Left arm, Patient Position: Sitting, BP Cuff Sizes: Large Adult (32-43 cm)) Pulse 82 Ht 165.1 cm (5' 5) Wt 113.4 kg (250 lb) Comment: reported BMI 41.60 kg/m?? Physical exam: Ms. Whitney is a 50 y.o. female who is alert and oriented. She is in no acute discomfort and is resting comfortably in the exam room. Incisions look great. Calcaneous is stable on exam. Assessment and plan:: 50 y.o. year-old female 10 week check 12/01/20 (Gael) LEFT YEE 2 screws, Lateralizing closing wedge osteotomy of the calcaneous with continued wet tissue, though no erythema or wound dehiscence. We had a long discussion regarding the nature of Susan Whitney's progress. Her skin looks great and the calcaneous is stable on physical exam. PT referral given: May now WBAT in the boot with assistive devices. May advance away from the boot and crutches as tolerated. Continue to work on ambulation. Will plan on evaluating progress at next visit. Likely be able to return to work gradually, 3 days per week, 5 hours per day with the ability increase days per week and hours per week as tolerated. She may need the ability to sit and elevate as needed. This plan was discussed with the patient and they are in agreement. All of the patient's questions were answered. The patient understand to contact us if they have any other questions or concerns. FU: 6 weeks with XR of the LEFT foot. ordered Karey De PA-C The above dictation was made with voice recogonition software documented in this encounter Plan of Treatment Upcoming Encounters Date Type Department Care Team (Late st Contact Info) Description 12/04/2023 8:00 AM EDT Office [place] [address] Cyn Murphy, PT [facility] PHYSICAL MEDICINE & [place] [address] 12/04/2023 10:45 AM EDT Appointment XRay at [address] [place] [address] 12/04/2023 11:40 AM EDT Office [place] [address] Jennifer Stanley, OUTSIDE PLANT SUPERVISOR [facility] [place] [address] Scheduled Referrals Name Type Priority Associated Diagnoses Orde r Schedule Referral to Physical Therapy Outpatient Referral Routine Acquired left hindfoot varus Ordered: 02/08/2021 documented as of this encounter Results * [...] have questions please contact the health home health care coordinator that requested your imaging first. ? Narrative 04/01/2021 1:49 PM EST EXAMINATION: XR [...] who have questions please contactthe health home health care coordinator that requested your imaging first. 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
--- OUTSIDE RECORDS SUMMARY | 2023-11-15 04:26 | XMS_ITS | Encounter Summary ---
Author Organization [facility] [place] [address] Care Team Providers Care High School Science Tutor Name Role Phone Jennifer Suarez APRN Primary Care Provider [phone] Reason for Visit * Reason Comments Follow-up Pre-Op Encounter Details Date Type Department Care Team (Late st Contact Info) Description 11/30/2020 1:00 PM EDT Office Visit [place] [address] Tio Mayo MD [facility] [place] [address] Arthritis of left ankle; Acquired left hindfoot varus Social History Tobacco [...] Sign Reading Time Taken Comments Blood Pressure 133/66 11/30/2020 1:03 PM EDT Pulse 61 11/30/2020 1:03 PM EDT Temperature - - Respiratory Rate - - Oxygen Saturation - - Inhaled Oxygen Concentration - - Weight 112.5 kg (248 lb) 11/30/2020 1:03 PM EDT Height 165.1 cm (5' 5) 11/30/2020 1:03 PM EDT Body Mass Index 41.27 11/30/2020 1:03 PM EDT documented in this encounter Progress Notes * Olivia Palmer RN - 11/30/2020 1:00 PM EDT PREOPERATIVE APPOINTMENT Chief complaint: Preoperative appointment for proposed left calcaneus removal of current screws, bone grafting of the screw tracts, and lateral closing wedge osteotomy History of present illness: Susan Whitney is a 50 y.o. year-old female here in regards to the above. The above is planned as a 2 parts, staged procedure, with a total ankle arthroplasty planned in approximately 6 months. She continues to have pain predominantly in her tibiotalar joint. The patient has sought preoperative clearance with PCP: Jennifer [place] APRN. Review of the note reveals no definitive barriers to proceeding with surgery and a tolerable risk level. The patient has had the following previous problems with surgery: N/V with Anesthesia; has used Propofol and scope patch along with anti-nausea meds after (compazine or zofran) Patient has Crutches, knee scooter, walker to use after surgery. Post op x-rays ordered: yes, left ankle Past medical history: Patient Active Problem List Diagnosis Date Noted ??? Arthritis of left ankle 10/13/2020 ??? Left foot pain 10/14/2015 Medications: ??? acetaminophen (Tylenol) 500 mg Tablet ??? gabapentin (Neurontin) 300 mg Capsule ??? albuteroL 90 mcg/actuation HFA Aerosol Inhaler ??? multivitamin Capsule ??? loratadine (Claritin) 10 mg Tablet ??? aspirin EC 81 mg Tablet, Delayed Release (E.C.) ??? melatonin 1 mg Tablet ??? ibuprofen [...] Vital signs: Temp: -- Physical Exam: NAD. LLE: SLight varus heel. NO skin breakdown Imaging: Personal review of the patient's imaging reveals: No new. Previous reviewed. 2 screws traversing subtalar joint. Solid fusion across subtalar joint. Tibiotalar arthritis. Assessment: 50 y.o. year-old female here for a preoperative appointment for proposed left calcaneusremoval of current screws, bone grafting of the screw tracts, and lateral closing wedge osteotomy Plan: The patient and I discussed in [...] this procedure, we discussed the risk of nonunion, delayed ability to perform ankle arthroplasty. We reviewed the nonoperative options for treatment. [...] pain. They signed the opioid consent form. Patient can use Hydromorphone for post-op pain management. Opioid PDMP 11/30/2020 [place] PDMP Query Date 11/30/2020 [place] PDMP Query Date 11/30/2020 [place] PDMP Query Date 11/30/2020 She was also given chlorhexidine soap [...] for this note. Tio Mayo MD [place] 11/30/2020 documented in this encounter Plan of Treatment Upcoming Encounters Date Type Department Care Team (Late st Contact Info) Description 12/04/2023 8:00 AM EDT Office Visit [place] [address] Cyn Murphy, PT [facility] PHYSICAL MEDICINE & [place] [address] 12/04/2023 10:45 AM EDT Appointment XRay at [address] [place] [address] 12/04/2023 11:40 AM EDT Office Visit [place] [address] Jennifer Stanley SOFTWARE SECURITY ARCHITECT [facility] [place] [address] documented as of this encounter Visit Diagnoses Diagnosis Arthritis of left ankle Unspecified arthropathy, ankle and foot Acquired left hindfoot varus documented in this encounter Care Teams High School Science Tutor Relationship Specialty Start Date End Date Jennifer Suarez APRN [address] [facility] [place] [address] PCP - General Family Medicine 07/14/20 11/20/22 documented as of this encounter
--- OUTSIDE RECORDS SUMMARY | 2023-11-15 04:26 | XMS_ITS | Encounter Summary ---
Author Organization [facility] Address [facility] [place] [address] Care Team Providers Care Rn Manager Name Role Phone Jennifer Suarez APRN Primary Care Provider [phone] Reason for Visit * Reason Onset Date Comments Appointment 08/11/2020 Encounter Details Date Type Department Care Team (Late st Contact Info) Description 08/11/2020 Telephone [place] [address] Dayana Ahuja OD [facility] [place] [address] Appointment Social History Tobacco Use Types Packs/Day Years Used Date Smoking Tobacco: Never Smokeless Tobacco: Never Alcohol Use Standard Drinks/Week Comments Yes 0 (1 standard drink = 0.6 oz pur e alcohol) Sex and Gender Information Value Date Recorded Sex Assigned at Not on file Gender Identity Female 08/10/2020 7:17 AM EDT Sexual Orientation Straight 08/10/2020 7: 16 AM EDT documented as of this encounter Miscellaneous Notes * Telephone Encounter - Rafaela Layton - 08/11/2020 2:40 PM EDTSumskip: BLAIR Ahuja 4-6 W FUV Pt seen by Dr Ahuja on 08/10/20 and needs a follow-up appt for: 4-6 weeks (4Wks: 09/08/20 -09/21/2020 for 6 weeks) for DFE. Left VM msg for pt to call to BLAIR: At time of call avail appts w SS are: 09/03/20 @ 3:20 PM 09/16/20 @ 2:40 PM or a 10:40 available if you have to. * Telephone Encounter - Rafaela Layton - 08/11/2020 2:40 PM EDTSummary: Lft 2nd VM msg for pt. Letter mailed. Lft 2nd VM msg for pt. Letter mailed. documented in this encounter Plan of Treatment Upcoming Encounters Date Type Department Care Team (Late st Contact Info) Description 12/04/2023 8:00 AM EDT Office Visit Physical Therapy at [place] [phone] Cyn Murphy, PT [facility] PHYSICAL MEDICINE & [place] [address] 12/04/2023 10:45 AM EDT Appointment XRay at [address] [place] [address] 12/04/2023 11:40 AM EDT Office Visit [place] [address] Jennifer Stanley SUPERVISOR [employer] [facility] [place] [address] documented as of this encounter Visit Diagnoses Not on filedocumented in this encounter Care Teams Rn Manager Relationship Specialty Start Date End Date Jennifer Suarez APRN [address] [place] [address] PCP - General Family Medicine 07/14/20 11/20/22 documented as of this encounter
--- OUTSIDE RECORDS SUMMARY | 2023-11-15 04:26 | XMS_ITS | Encounter Summary ---
Author Organization [facility] Address [address] [place] [address] Care Team Providers Care Wood Hacker Name Role Phone Unknown, Provider Primary Care Provider Encounter Details Date Type Department Care Team (Late st Contact Info) Description 11/19/2020 Lab Requisition [facility] Pathology & Laboratory Medicine - [facility] [address] [place] [address] Sneha Lizarraga, DO [address] [facility] [address] [address] [place], [place] [id number] Irritable bowel syndrome without diarrhea Social History Tobacco Use Types Packs/Day Years Used Date Smoking Tobacco: Never Assessed Sex and Gender Information Value Date Recorded Sex Assigned at Not on file Gender Identity Female 03/07/2022 14:17 EST Sexual Orientation Not on file documented as of this encounter Plan of Treatment Not on file documented as of this encounter Procedures Procedure Name Priority Date/Time Associated Diagnosis Comments SURGICAL PATHOLOGY Today 11/19/2020 7:45 EDT Irritable bowel syndrome without diarrhea documented in this encounter Results * SURGICAL PATHOLOGY (11/19/2020 7:45 EDT) Note to Patient The following pathology results have been interpreted by your pathologist and may be available to you before your health provider has had the opportunity to review them. Please allow time for your provider to receive these results and explore management options, if applicable. 11/23/2020 9:46 EDT [facility] Final Diagnosis A. COLON, CECUM, BIOPSY: - Colonic mucosa with no significant diagnostic abnormality. B. COLON, 50 CM, BIOPSY: - Colonic mucosa with no significant diagnostic abnormality. C. RECTUM, BIOPSY: - Colonic mucosa with no significant diagnostic abnormality. 11/23/2020 9:46 [facility] Attestation There was significant resident/fellow involvement in the diagnostic evaluation of this case. By the signature below, the attending physician certifies that they have personally conducted a gross and/or microscopic examination of the described specimens and rendered or confirmed the above diagnosis. 11/23/2020 9:46 [facility] at 0946 Clinical History Screening, IBS 11/23/2020 9:46 [facility] Gross Description A. Received in formalin labelled with proper patient identification (initials B, D) and cecum is a single michaels-brown tissue (0.5 x 0.2 x 0.1 cm). Submitted intact in A1. B. Received in formalin labelled with proper patient identification (initials B, D) and 50 cm is single michaels-white tissue (0.4 x 0.2 x 0.1 cm). Submitted intact in B1. C. Received in formalin labelled with proper patient identification (initials B, D) and rectum is a single michaels-brown tissue (0.3 x 0.2 x 0.1 cm). Submitted intact in C1. MARYLIN GERMAIN([facility] 11/19/2020 16:05 11/23/2020 9:46 [facility] Resident/Tam w: Justo Kwan, 11/23/2020 9:46 [facility] Performing Lab [facility] 11/23/2020 9:46 [facility] Scanned Images 11/23/2020 9:46 [facility] Tissue SPECIMEN FROM RECTUM / Unknown 11/19/2020 7:45 EDT 11/19/2020 15:50 EDT Tissue specimen (specimen) COLON STRUCTURE / Unknown 11/19/2020 7:45 EDT 11/19/2020 15:50 EDT Tissue specimen (specimen) SPECIMEN FROM RECTUM / Unknown 11/19/2020 7:45 EDT 11/19/2020 15:50 EDT Sneha Lizarraga DO PATHOLOGY ORDERABLES [facility] [address] [place] [address] documented in this encounter Visit Diagnoses Diagnosis Irritable bowel syndrome without diarrhea Irritable bowel syndrome documented in this encounter Care Teams Wood Hacker Relationship Specialty Start Date End Date Unknown, Provider, PCP - General 11/06/16 documented as of this encounter
--- OUTSIDE RECORDS SUMMARY | 2023-11-15 04:26 | XMS_ITS | Encounter Summary ---
[place] [address] Care Team Providers Care Hatchery Worker Name Role Phone Mikey Hernandez MD Primary Care Provider [phone] Reason for Visit * Reason Comments Cellulitis Encounter Details Date Type Department Care Team (Late st Contact Info) Description 09/30/2019 6:50 PM EDT - 09/30/2019 6:51 PM EDT [place] [phone] Cellulitis of leg, right Discharge Disposition: Home Social History Tobacco Use [...] Sign Reading Time Taken Comments Blood Pressure 153/76 09/30/2019 6:35 PM EDT Pulse 78 09/30/2019 6:35 PM EDT Temperature 36.8 ??C (98.2 ??F) 09/30/2019 6:35 PM ED T Respiratory Rate 18 09/30/2019 6:35 PM EDT Oxygen Saturation 98% 09/30/2019 6:35 PM EDT Inhaled Oxygen Concentration - - Weight - - Height - - Body Mass Index - - documented in this encounter Discharge Instructions * Discharge Instructions* Juan Carlos Melgar PA - 09/30/2019 6:38 PM EDT Please monitor for signs of infection. Take the entire course of antibiotics. Take claritin during the day and benadryl 50mg at night. * Attachments The following attachments cannot be sent through Care Everywhere. * Cellulitis ([place]) documented in this encounter Medications at Time of Discharge Medication Sig Dispensed Refills Start Date End Date acetaminophen (Tylenol) 500 mg Tablet Take by mouth every 6 hours as needed. 12/04/2017 11/22/2021 cephALEXin (Keflex) 500 mg Capsule Take 1 capsule by mouth 4 times daily for 10 days. 40 capsule 09/30/2019 10/10/2019 ibuprofen (ADVIL;MOTRIN) 600 mg Tablet Take 1 tablet by mouth every 6 hours as needed for Pain. 30 tablet 10/14/2015 11/22/2021 documented as of this encounter ED Notes * Juan Carlos Melgar PA - 09/30/2019 6:36 PM EDT Images from the original note were not included. Chief Complaint Patient presents with ??? Cellulitis HPI This is a 49-year-old female presents emergency department with a bee sting to her right anterior thigh. Patient states that she was stung by a bumblebee yesterday and has since developed redness, itching, pain, and swelling over the right thigh. She reports that every time she gets stung by bees she requires antibiotics and has had cellulitis on several occasions. She was concerned that this wasdeveloping into cellulitis was given emergency room to be evaluated. Denies any fevers or chills. No sign of anaphylaxis or cardiopulmonary involvement. Allergies Allergen Reactions ??? Latex ??? Codeine Low blood pressure ??? Demerol [Meperidine] ??? Percocet [Oxycodone-Acetaminophen] ??? Phenergan [Promethazine] ??? Simethicone ??? Vicodin [Hydrocodone-Acetaminophen] Review of Systems Constitutional: Negative for fever. HENT: Negative for rhinorrhea. Eyes: Negative for pain. Respiratory: Negative for shortness of breath. Cardiovascular: Negative for chest pain. Gastrointestinal: Negative for abdominal pain. Endocrine: Negative for polyuria. Genitourinary: Negative for frequency. Musculoskeletal: Negative for back pain. Skin: Positive for rash. Neurological: Negative for headaches. Psychiatric/Behavioral: Negative for confusion. Physical Exam Constitutional: Appearance: She is well-developed. HENT: Head: Normocephalic. Eyes: Pupils: Pupils are equal, round, and reactive to light. Neck: Musculoskeletal: Neck supple. Cardiovascular: Rate and Rhythm: Normal rate and regular rhythm. Pulmonary: Effort: Pulmonary effort is normal. Skin: General: Skin is warm and dry. Comments: Swelling, warmth, and erythema about the right distal anterior thigh. No sign of a drainable abscess. Neurological: Mental Status: She is alert and oriented to person, place, and time. Procedures MDM 49-year-old female presents emergency department with a bee sting to her right anterior thigh. No sign of anaphylaxis. She has a history of cellulitis after bee stings so came to emergency departmentto be evaluated. On exam she is resting comfortably no acute distress. She does have a large area of erythema and swelling just proximal to her right knee. No sign of a drainable abscess. Given her history and exam we will start her on Keflex and have her follow-up with primary care. Seems likely this is more of an allergic reaction that is cellulitis however will cover with antibiotics given herhistory. ED Course: -H&P -Antibiotics -Discharge home Juan Carlos Melgar PA 09/30/192131 documented in this encounter Plan of Treatment Upcoming Encounters Date Type Department Care Team (Late st Contact Info) Description 12/04/2023 8:00 AM EDT Office [place] [address] Cyn Murphy, PT [facility] PHYSICAL MEDICINE & [place] [address] 12/04/2023 10:45 AM EDT Appointment XRay at [address] [place] [address] 12/04/2023 11:40 AM EDT Office [place] [address] Jennifer Stanley APRN [facility] [place] [address] documented as of this encounter Visit Diagnoses Diagnosis Cellulitis of leg, right Cellulitis and abscess of leg, except foot documented in this encounter Care Teams Hatchery Worker Relationship Specialty Start Date End Date Mikey Hernandez MD [facility] [address] PCP - General 08/08/16 07/13/20 documented as of this encounter
--- OUTSIDE RECORDS SUMMARY | 2023-11-15 04:26 | XMS_ITS | Encounter Summary ---
Author Organization [facility] Address [address] [place] [address] Care Team Providers Care Hired Help Name Role Phone Unknown, Provider Primary Care Provider [phone] Encounter Details Date Type Department Care Team (Late st Contact Info) Description 11/02/2016 Results Only [facility]- [facility] [phone] Jacinda Suarez, TAWANNA [address] [place], [place] [phone] Social History Tobacco Use Types Packs/Day Years Used Date Smoking Tobacco: Never Assessed Sex and Gender Information Value Date Recorded Sex Assigned at Not on file Gender Identity Female 03/07/2022 14:17 EST Sexual Orientation Not on file documented as of this encounter Plan of Treatment Not on file documented as of this encounter Procedures Procedure Name Priority Date/Time Associated Diagnosis Comments PAP TEST- RESULT ONLY Routine 11/02/2016 0:00 EDT documented in this encounter Results * PAP TEST- RESULT ONLY (11/02/2016 0:00 EDT) Pathology Report: CYTOPATHOLOGY REPORT Reports generated via electronic interface contain original data; however they are lacking the format of the original report. Caution should be taken when reading/interpreti ng unformatted reports. Name: ? TOO BAEZ ? Accession #: ? [id number] ? : ? 1970 (Age: 46) ??F ?Collect Date: ? 11/02/2016 ? Location: ? [facility] ? Receive Date: ? 11/06/2016 ? Provider: JACINDA STACY Copy to: ? Final Report SPECIMEN ADEQUACY ? Satisfactory for Evaluation - transformation zone component present GENERAL CATEGORIZATION ? Negative for Intraepithelial Lesion or Malignancy INTERPRETATION ? Shift in james present suggestive of bacterial vaginosis. Specimen/Source: ??Pap Test, Cervix, ThinPrep Imaging System with manual evaluation Document reviewed and electronically signed by: ? Alem Gauthier [facility](ASCP) ? Report ??Date: 11/13/2016 10:42 HPV with Pap Test ? Date Ordered: ? 11/13/2016 ? Status: ?? Signed Out ?Date Complete: ? 11/14/2016 ? By: ??System Interface ? Date Reported: ? 11/14/2016 ? Interpretation RESULT: Negative for HPV. No E6 or E7 mRNA is detected from HPV types 16,18,31,33,35, 39,45,51,52,56,58, 59,66, and 68 by form setter/driver mediated amplification. Comments Document reviewed and electronically signed by: ? System Interface ? Report date: 11/14/2016 By the signature above, the attending physician certifies that he/she has personally conducted a gross and/or microscopic examination of the described specimens and rendered or confirmed the above diagnosis. End of Report [facility] 11/02/2016 11/06/[address] TESTER PATHOLOGY ORDERABLES [facility] [address] [place] [address] documented in this encounter Visit Diagnoses Not on filedocumented in this encounter Care Teams Hired Help Relationship Specialty Start Date End Date Unknown, Provider, PCP - General 11/06/16 documented as of this encounter
--- OUTSIDE RECORDS SUMMARY | 2023-11-15 04:26 | XMS_ITS | Encounter Summary ---
Author Organization [facility] [place] [address] Care Team Providers Care Derivatives Trader Name Role Phone Jennifer Suarez APRN Primary Care Provider [phone] Reason for Visit * Auth/Cert Specialty Diagnoses [...] Expiration Date Visits Re quested Visits Authorized [id number] 1 1 Encounter Details Date Type Department Care Team (Late st Contact Info) Description 12/01/2020 7:30 AM EDT - 12/01/2020 9:15 AM EDT Surgery [place] [address] Tio Covarrubias MD [facility] [place] [address] REMOVAL OF IMPLANT, DEEP, FOOT (WRVU 5.96) Social History Tobacco Use Types Packs/Day Years [...] Sign Reading Time Taken Comments Blood Pressure 123/56 12/01/2020 7:20 AM EDT Pulse 64 12/01/2020 7:20 AM EDT Temperature 36.4 ??C (97.5 ??F) 12/01/2020 6:01 AM ED T Respiratory Rate 16 12/01/2020 7:20 AM EDT Oxygen Saturation 98% 12/01/2020 7:20 AM EDT Inhaled Oxygen Concentration - - [...] can affect judgment and reaction time. Contact [facility] with any questions/concerns. Medications: 1. The pain medication you are on can cause constipation so increase your intake of fluids and fiber while you are on them. You can take the stool softener, Senakot, that was ordered to facilitate a bowel movement. If needed an [id number] medication, MiraLAX can also be used to [...] control your pain. Call your doctor at [phone] if: You have a fever > 101.5 or experience chills Increased discharge from the incision Any redness or swelling around the incision Increased pain or change in the pain that is not controlled by your pain medications. FOLLOW UP APPOINTMENTS: 1. You will have follow up appointments at [facility] as indicated in Future Appointments and Orders. [...] Center 12/21/2020 4:30 PM Tio Covarrubias MD [facility] ORTH 3C [facility] documented in this encounter Medications at Time [...] Covarrubias MD - 12/01/2020 8:01 AM EDT [facility] Operative Note Patient Name: Susan Whitney : [id number] MR#: [id number] Case Date: 12/01/2020 Surgeon: Surgeon(s) and Role: [...] Implant Name Type Inv. Item Serial No. Concrete Block Mason Lot No. LRB No. Used Action GRAFT BONE FILLER [id number] CHIPS CANC PRESERVON READIGRAFT ([id number]) (AutoReq) - [id number] IMPLANTS GRAFT BONE FILLER [id number] CHIPS CANC PRESERVON READIGRAFT ([id number]) (AutoReq) [facility] HE Left 1 Implanted STAPLE [id number] COMP NITINOL SPEED TITAN ([id number]) (AutoReq) - [id number] IMPLANTS STAPLE [id number] COMP NITINOL SPEED TITAN ([id number]) (AutoReq) [employer] A/S [facility] GABY [id number] Left 1 Implanted STAPLE [id number] COMP NITINOL SPEED TITAN ([id number]) (AutoReq) - [id number] IMPLANTS STAPLE [id number] COMP NITINOL SPEED TITAN (4835986) (AutoReq) [employer] [facility] GABY [id number] Left 1 Implanted K WIRE FIX [id number] TROCAR POINT THREADED [facility] END SS ([id number]) - [id number] IMPLANTS K WIRE FIX [id number] TROCAR POINT THREADED BTH END SS ([id number]) [employer] Left 1 Implanted and Explanted PIN FIX 7/64X9IN TROCAR POINT SGL END SS JONNY ([id number]) - [id number] IMPLANTS PIN FIX 7/71K8ZERJOWEV POINT SGL END SS STEINMANN (8406989) [employer] Left 1 Implanted and Explanted PIN FIX 5/32X9IN TROCAR POINT SGL END SS STEINMANN ([id number]) - [id number] IMPLANTS PIN FIX 5/[id number] POINT SGL END SS STEINMANN ([id number]) [employer] - MI[employer]RE Left [...] AM EDT Office [place] [phone] Cyn Murphy, PT [facility] PHYSICAL MEDICINE & [place] [address] 12/04/2023 10:45 AM EDT Appointment XRay at [address] [place] [address] 12/04/2023 11:40 AM EDT Office [place] [phone] Jennifer Stanley ROPE RIDER [facility] [place] [address] documented as of this encounter Procedures Procedure Name Priority Date/Time Associated Diagnosis Comments XR FLUORO NO RAD <1HR - OR USE Routine 12/01/2020 9:21 AM EDT MODIFIER 7.3 CANNULATED SCREWS SYNTHES 12/01/2020 7:34 AM EDT retained left subtalar screws, hindfoot varus Osteotomy Heel Bone (01700) 12/01/2020 7:34 AM EDT retained left subtalar screws, hindfoot varus Removal Deep Implant ([id number]) 12/01/2020 7:34 AM EDT retained left subtalar [...] (Intra-Procedure), Indication for (Active or Suspected): Prophylaxis 0749 (Given - Provid er: Skye Gale) HYDROmorphone [...] Routine 0700 (Given - Provid er: Amanda Duque, JOSHUA)0705 (Given - Provider: Amanda Duque RN) documented in this encounter Care Teams Derivatives Trader Relationship Specialty Start Date End Date Jennifer Suarez, ROPE RIDER [address] [place], [place] [id number] PCP - General Family Medicine 07/14/20 11/20/22 documented as of this encounter
--- OUTSIDE RECORDS SUMMARY | 2023-11-15 04:26 | XMS_ITS | Encounter Summary ---
[place] [address] Care Team Providers Care Assayer Name Role Phone Jennifer Suarez APRN Primary Care Provider Reason for Visit * Reason Comments Follow-up 12-01-20 left removal of implant Encounter Details Date Type Department Care Team (Late st Contact Info) Description 12/21/2020 4:30 PM EDT Office [place] [address] Tio Mayo MD [facility] [place] [address] Arthritis of left ankle; Acquired left hindfoot [...] Sign Reading Time Taken Comments Blood Pressure 141/55 12/21/2020 4:16 PM EDT Pulse 67 12/21/2020 4:16 PM EDT Temperature 36.8 ??C (98.3 ??F) 12/21/2020 4:16 PM ED T Respiratory Rate - - Oxygen Saturation - - Inhaled Oxygen Concentration - - Weight 110.7 kg (244 lb) 12/21/2020 4:16 PM EDT Height 165.1 cm (5' 5) 12/21/2020 4:16 PM EDT Body Mass Index 40.6 12/21/2020 4:16 PM EDT documented in this encounter Progress Notes * Tio Mayo MD - 12/21/2020 4:30 PM EDT Chief complaint: Problem List Items Addressed This Visit Arthritis of left ankle 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 year-old female approximately 2 weeks status post the above procedure. This is a planned for stage in anticipation of total ankle arthroplasty in the future. She has been doing well and has been nonweightbearing. She is accompanied by her partner. Past medical history: Patient Active Problem List Diagnosis Date Noted ??? 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 Arthritis of left ankle 10/13/2020 ??? Left foot pain 10/14/2015 Medications: ??? aspirin EC 81 mg Tablet, Delayed Release (E.C.) ??? acetaminophen (Tylenol) 500 mg Tablet ??? gabapentin (Neurontin) 300 mg Capsule ??? albuteroL 90 mcg/actuation HFA Aerosol Inhaler ??? multivitamin Capsule ??? melatonin 1 mg Tablet ??? ibuprofen (ADVIL;MOTRIN) 600 mg Tablet ??? loratadine (Claritin) 10 mg Tablet Allergies: Allergies Allergen Reactions ??? [...] chills Vital signs: Temp: -- Physical Exam: Examination of the left lower extremity reveals intact sutures at the heel and the lateral aspect of the ankle. There is slight maceration of the skin edges. No signs of infection. She has intact sensation in the deep peroneal, superficial peroneal, sural, saphenous, tibial nerve distribution. Slightly altered in the saphenous nerve distribution. Toes are warm and well-perfused. She can actively flex and extend her ankle. Imaging: Personal review and interpretation of the patient's imaging reveals: No new Assessment: 50 y.o. year-old female status post removal of hardware, bone grafting, and lateralizing calcaneal osteotomy with slightly macerated incision edges. Plan: I would like to wait another week to remove the sutures. We will plan on placing Mepilex silver dressings over them. She can go into a tall walker boot but remain nonweightbearing. We'll plan on seeing her in 1 week's time to check the incisions and assure they are ready for suture removal. If she has troubles or worsening symptoms in the interim she will contact us. There are no signs of current active infection, and so I'm not currently treat with antibiotics. Follow up: 1 week for suture removal This plan was discussed with the patient and they are in agreement. All of the patient's questions were answered. The above dictation was made with voice recognition software documented in this encounter Plan of Treatment Upcoming Encounters Date Type Department Care Team (Late st Contact Info) Description 12/04/2023 8:00 AM EDT Office [place] [address] Cyn Murphy, PT [facility] PHYSICAL MEDICINE & [place] [address] 12/04/2023 10:45 AM EDT Appointment XRay at [address] [place] [address] 12/04/2023 11:40 AM EDT Office Visit Orthopaedics at [facility] [place] [address] Jennifer Stanley CIRCULATION CREW LEADER [facility] [place] [address] documented as of this encounter Visit Diagnoses Diagnosis Arthritis of left ankle Unspecified arthropathy, ankle and foot 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
--- OUTSIDE RECORDS SUMMARY | 2023-11-15 04:26 | XMS_ITS | Encounter Summary ---
Author Organization [facility] Address [facility] [place] [address] Care Team Providers Care Elevator Starter Name Role Phone Jennifer Suarez APRN Primary Care Provider [phone] Reason for Visit * Reason Comments Follow Up Surgery DOS 12-01-20 left carlos anvarro of implant Encounter Details Date Type Department Care Team (Late st Contact Info) Description 12/31/2020 11:00 AM EDT [place] [phone] Karey De PA [facility] [place] [address] Acquired left hindfoot varus s/p lateral closing [...] Sign Reading Time Taken Comments Blood Pressure 138/55 12/31/2020 10:13 AM EDT Pulse 85 12/31/2020 10:13 AM EDT Temperature - - Respiratory Rate - - Oxygen Saturation - - Inhaled Oxygen Concentration - - Weight 113.4 kg (250 lb) 12/31/2020 10:13 AM EDT Height 165.1 cm (5' 5) 12/31/2020 10:13 AM EDT Body Mass Index 41.6 12/31/2020 10:13 AM EDT documented in this encounter Progress Notes * Karey De PA - 12/31/2020 11:00 AM EDT Images from the original note were not included. PATIENT NAME: Susan Whitney AGE: 50 y.o. MR#: [id number] DATE OF VISIT: 12/31/2020 CHIEF COMPLAINT: Wound check 12/01/20 (Gael) LEFT YEE 2 screws, Lateralizing closing wedge osteotomy of the calcaneous ?? HISTORY OF PRESENT ILLNESS: Ms. Whitney is a 50 y.o. female who comes into clinic today for evaluation of the LEFT ankle. She was last in to see Dr. Mayo on 12/21/20 for her hospital check. At this visit, her incisions were not yet ready for suture removal. Since this visit she has remained compliant with her NWB status. She continues to have nerve pain and increased her Gabapentin use. She is now taking 600 mg before bed and 300 mg in the morning and in the afternoon which has helped. She has been using mepilex AG border as instructed by Dr. Mayo. She changes this every 2 days. She denies fever, chills, drenching night sweats. Past medical history: Patient Active Problem List [...] or chills Vital signs: Visit Vitals BP 138/55 Pulse 85 Ht 165.1 cm (5' 5) Wt 113.4 kg (250 lb) BMI 41.60 kg/m?? Physical exam: Ms. Whitney is a 50 y.o. female who is alert and oriented. She is in no acute discomfort and is resting comfortably in the exam room. Lateral incision No theresa-incisional erythema noted No bogginess or drainage to palpation about the incision Skin feels no warmer than surrounding tissue I am not able to part the skin with gentle palpation Some maceration noted. No theresa-incisional erythema noted No bogginess or drainage to palpation about the incision Skin feels no warmer than surrounding tissue I am able to part the skin with gentle palpation Assessment and plan:: 50 y.o. year-old female one month wound check 12/01/20 (Agel) LEFT YEE 2 screws, Lateralizing closing wedge osteotomy of the calcaneous with continued wet tissue, though no erythema or wound dehiscence. We had a long discussion regarding the nature of Susan Whitney's chief complaint. Susan's calcaneal incision is not yet ready for suture removal. I would like her wound to dry out abit. I will have her continue to dress the wound with Mepliex AG border. I would like her to changethis every few days or as needed. This plan was discussed with the patient and they are in agreement. All of the patient's questions were answered. The patient understand to contact us if they have any other questions or concerns. FU: One week for wound check, suture removal Karey De PA-C The above dictation was made with voice recogonition software documented in this encounter Plan of Treatment Upcoming Encounters Date Type Department Care Team (Late st Contact Info) Description 12/04/2023 8:00 AM EDT Office [place] [address] Cyn Murphy, PT [facility] PHYSICAL MEDICINE & [place] [address] 12/04/2023 10:45 AM EDT Appointment XRay at [address] [place] [address] 12/04/2023 11:40 AM EDT Office [place] [address] Jennifer Stanley APRN [facility] [place] [address] documented as of this encounter Visit Diagnoses Diagnosis 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
--- OUTSIDE RECORDS SUMMARY | 2023-11-15 04:26 | XMS_ITS | Encounter Summary ---
Author Organization [facility] Address [facility] [place] [address] Care Team Providers Care Lard Refiner Name Role Phone Jennifer Suarez APRN Primary Care Provider [phone] Reason for Visit * Reason Comments Follow Up Surgery Acquired left hindfo ot varus s/p lateral closing wedge osteotomy 12/01/20 Gael Encounter Details Date Type Department Care Team (Late st Contact Info) Description 01/07/2021 4:30 PM EDT Office [place] [phone] Karey De PA [facility] [place] [address] Acquired left hindfoot varus Social History Tobacco [...] Sign Reading Time Taken Comments Blood Pressure 133/67 01/07/2021 3:39 PM EDT Pulse 74 01/07/2021 3:39 PM EDT Temperature - - Respiratory Rate - - Oxygen Saturation - - Inhaled Oxygen Concentration - - Weight 113.4 kg (250 lb) 01/07/2021 3:39 PM EDT reported Height 165.1 cm (5' 5) 01/07/2021 3:39 PM EDT r eported Body Mass Index 41.6 01/07/2021 3:39 PM EDT documented in this encounter Progress Notes * Karey De PA - 01/07/2021 4:30 PM EDT Images from the original note were not included. PATIENT NAME: Susan Whitney AGE: 50 y.o. MR#: [id number] DATE OF VISIT: 01/07/2021 CHIEF COMPLAINT: 5 week Wound check 12/01/20 (Gael) LEFT YEE 2 screws, Lateralizing closing wedge osteotomy of the calcaneous ?? HISTORY OF PRESENT ILLNESS: Ms. Whitney is a 50 y.o. female who comes into clinic today for evaluation of the LEFT ankle. The PT was last in to see myself on 12/31/2020 . Since this visit she has been doing well. She continues to use Mepilex AG border changed every 2 days. Her incisions seem to be drying up a bit since last visit. She denies fever, chills, drenching night sweats. . Past medical history: Patient Active Problem List Diagnosis Date Noted ??? 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 Arthritis of left ankle 10/13/2020 ??? Left foot pain 10/14/2015 Medications: ??? acetaminophen (Tylenol) 500 mg Tablet ??? gabapentin (Neurontin) 300 mg Capsule ??? multivitamin Capsule ??? melatonin 1 mg Tablet ??? ibuprofen (ADVIL;MOTRIN) 600 mg Tablet ??? aspirin EC 81 mg Tablet, Delayed Release (E.C.) ??? loratadine (Claritin) 10 mg Tablet ??? albuteroL 90 mcg/actuation HFA Aerosol Inhaler Allergies: Allergies Allergen Reactions ??? Latex Other [...] or chills Vital signs: Visit Vitals BP 133/67 Pulse 74 Ht 165.1 cm (5' 5) Comment: reported Wt 113.4 kg (250 lb) Comment: reported BMI 41.60 kg/m?? Physical exam: Ms. Whitney is a 50 y.o. female who is alert and oriented. She is in no acute discomfort and is resting comfortably in the exam room. No theresa-incisional erythema noted No bogginess or [...] Assessment and plan:: 50 y.o. year-old female 5 week wound check 12/01/20 (Gael) LEFT YEE 2 screws, Lateralizing closing wedge osteotomy of the calcaneous with continued wet tissue, though no erythema or wound dehiscence. We had a long discussion regarding the nature of Susan Whitney's chief complaint. She has had improvement in her incisions drying up since she was last in clinic. We removed sutures today. These were covered with widely spaced steri strips and Mastisol. This plan was discussed with the patient and they are in agreement. All of the patient's questions were answered. The patient understand to contact us if they have any other questions or concerns. FU: 4 weeks with XR of the LEFT foot. ordered Karey De PA-C The above dictation was made with voice recogonition software documented in this encounter Plan of Treatment Upcoming Encounters Date Type Department Care Team (Late st Contact Info) Description 12/04/2023 8:00 AM EDT Office Visit [place] [phone] Cyn Murphy, PT [facility] PHYSICAL MEDICINE & [place] [address] 12/04/2023 10:45 AM EDT Appointment XRay at [address] [place] [address] 12/04/2023 11:40 AM EDT Office Visit [place] [phone] Jennifer Stanley APRN [facility] [place] [address] documented as of this encounter Results * [...] who have questions please contact the health day care provider that requested your imaging first. ? Narrative 02/08/2021 1:46 PM EST EXAMINATION: XR [...] patients who have questions please contactthe health day care provider that requested your imaging first. Iris Jackson MD IMG DX ORDERABLES documented in this encounter Visit Diagnoses Diagnosis Acquired left hindfoot varus Acquired left hindfoot varus documented in this encounter Care Teams Lard Refiner Relationship Specialty Start Date End Date Jennifer Suarez, LOGISTICS ACCOUNT MANAGER [address] [place] [address] PCP - General Family Medicine 07/14/20 11/20/22 documented as of this encounter
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
--- OUTSIDE RECORDS SUMMARY | 2023-11-15 04:26 | XMS_ITS | Encounter Summary ---
Author Organization [facility] [place] [address] Care Team Providers Care Detective Bowling Alley Name Role Phone Adarsh Wynn MD Primary Care Provider [phone] Encounter Details Date Type Department Care Team (Late st Contact Info) Description 06/07/2015 External Results [place] [address] Laura Coffey AUD [facility] [place] [address] Social History Tobacco Use Types Packs/Day Years [...] AM EDT Office [place] [address] Cyn Murphy, PT [facility] PHYSICAL MEDICINE & [place] [address] 12/04/2023 10:45 AM EDT Appointment XRay at [address] [place] [address] 12/04/2023 11:40 AM EDT Office [place] [address] Jennifer Stanley APRN [facility] [place] [address] documented as of this encounter Procedures Procedure Name Priority Date/Time Associated Diagnosis Comments AUDIOLOGY SCAN Routine 06/03/2015 documented in this encounter Results * Scan Doc: Audiology (06/03/2015) Laura Coffey AUD MEDIA MGR SCAN EXT ORDR/RSLT documented in this encounter Visit Diagnoses Not on filedocumented in this encounter Care Teams Detective Bowling Alley Relationship Specialty Start Date End Date Adarsh Wynn MD [facility] [address] [place] [address] PCP - General General Internal Medicine 05/25/1507/24 documented as of this encounter
--- OUTSIDE RECORDS SUMMARY | 2023-11-15 04:26 | XMS_ITS | Encounter Summary ---
[place] [address] Care Team Providers Care Cullet Crusher Name Role Phone Jennifer Suarez APRN Primary Care Provider [phone] Reason for Visit * Reason Onset Date Comments Disability Paperwork 12/03/2020 Encounter Details Date Type Department Care Team (Late st Contact Info) Description 12/03/2020 Telephone [place] [address] Tio Mayo MD [facility] [place] [address] Disability Paperwork Social History Tobacco Use Types [...] * Telephone Encounter - June Kolb - 12/13/2020 11:49 AM EDT Completed by: JUNE To provider for review/signature: SIGNATURE Faxed/Mailed/MY PORTAL/Pick-up Date: FAXED * Telephone Encounter - Sinai Padilla - 12/03/2020 3:49 PM EDT Date Received: 12/03/20 Insurance/Disability Company Name: [employer] Release on file/mailed: On file documented in this encounter Plan of Treatment Upcoming Encounters Date Type Department Care Team (Late st Contact Info) Description 12/04/2023 8:00 AM EDT Office [place] [address] Cyn Murphy, PT [facility] PHYSICAL MEDICINE & [place] [address] 12/04/2023 10:45 AM EDT Appointment XRay at [address] [place] [address] 12/04/2023 11:40 AM EDT Office [place] [address] Jennifer Stanley FIBER WORKER [facility] [place] [address] documented as of this encounter Visit Diagnoses Not on filedocumented in this encounter Care Teams Cullet Crusher Relationship Specialty Start Date End Date Jennifer Suarez APRN [address] [facility] [place] [address] PCP - General Family Medicine 07/14/20 11/20/22 documented as of this encounter
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
--- OUTSIDE RECORDS SUMMARY | 2023-11-15 04:26 | XMS_ITS | Encounter Summary ---
Author Organization [facility] Address [address] [place] [address] Care Team Providers Care Assistant Produce Manager Name Role Phone Unknown, Provider Primary Care Provider Encounter Details Date Type Department Care Team (Late st Contact Info) Description 03/06/2022 Orders Only [facility] Employee [facility] - [address] [address] Adore Roman, RN [address] [place] [address] Social History Tobacco Use Types Packs/Day Years Used Date Smoking Tobacco: Never Assessed Sex and Gender Information Value Date Recorded Sex Assigned at Not on file Gender Identity Female 03/07/2022 14:17 EST Sexual Orientation Not on file documented as of this encounter Plan of Treatment Not on file documented as of this encounter Visit Diagnoses Not on filedocumented in this encounter Care Teams Assistant Produce Manager Relationship Specialty Start Date End Date Unknown, Provider, PCP - General 11/06/16 documented as of this encounter
--- OUTSIDE RECORDS SUMMARY | 2023-11-15 04:26 | XMS_ITS | Encounter Summary ---
[place] [address] Care Team Providers Care Environmental Property Assessor Name Role Phone Adarsh Wynn MD Primary Care Provider [phone] Reason for Referral * Consultation (Routine) - Closed Specialty Diagnoses / Procedures Referred By Cheri silverman Referred To Contact Podiatry Gisell Hill MD [facility] [place] [address] [address] [place] [phone] Referral ID Status Reason Start Date Expiration Date V isits Requested Visits Authorized [id number] Closed Consult, Test & Treat 10/14/2015 10/13/2016 1 1 Reason for Visit * Reason Comments Foot Pain Encounter Details Date Type Department Care Team (Late st Contact Info) Description 10/14/2015 12:01 PM EDT - 10/14/2015 2:39 PM EDT [place] [address] Jamal Ford MD [address] [place] [address] Foot pain, left; Left ankle pain, unspecified chronicity Discharge Disposition: Home Social History Tobacco Use [...] Sign Reading Time Taken Comments Blood Pressure 156/69 10/14/2015 11:36 AM EDT Pulse 67 10/14/2015 11:34 AM EDT Temperature 36.8 ??C (98.2 ??F) 10/14/2015 11:34 AM E DT Respiratory Rate - - Oxygen Saturation 98% 10/14/2015 11:34 AM EDT Inhaled Oxygen Concentration - - Weight - - Height - - Body Mass Index - - documented in this encounter Discharge Instructions * Discharge Instructions* Gisell Hill MD - 10/14/2015 2:28 PM EDT We have made a referral to [facility]. You should receive a call regarding your appointment. You have been prescribed ibuprofen. You may take this as indicated. It is advised that you also take zantac (ranitidine or famotidine) twice a day when taking ibuprofen for GI upset. * Attachments The following attachments cannot be sent through Care Everywhere. * FOOT PAIN (MACEDONIAN) documented in this encounter Medications at Time of Discharge Medication Sig Dispensed Refills Start Date End Date ibuprofen (ADVIL;MOTRIN) 600 mg Tablet Take 1 tablet by mouth every 6 hours as needed for Pain. 30 tablet 10/14/2015 11/22/2021 documented as of this encounter ED Notes * Trent Olson RN - 10/14/2015 1:53 PM EDT Pt to xrSonny ALVAREZ noted, pt reading on e -device. * Trent Olson RN - 10/14/2015 1:28 PM EDT Awaiting xr, nad noted. * Jamal Ford MD - 10/14/2015 12:39 PM EDT Susan Whitney a 45 y.o.female was seen with a CC of: Chief Complaint Patient presents with ??? Foot Pain I saw this patient at ~ 12:25 PM. HPI: Susan Whitney is a 45 y.o. female with previous h/o left deafness and asthma, now presenting with left foot pain. Pt states that her left foot and ankle pain began about 1 week ago without any identified precipitating event. It worsened over the last 2-3 days. She states it takes a while to get in to see her PCP/surgical appliance fitter so she came to [facility] for further evaluation. She states that the painis worse with stepping and describes the pain as a sharp dull always there currently rated at a 3-5/10. She has tried elevation, compression and tylenol without relief. Pain is worsened by ice, stepping, and passive plantar flexion. With stepping, pain refers to left lower lateral calf and 4th foot digit. She states she recently began wearing orthotics at the beginning of August for plantar fasciitis of the right foot diagnosed by her surgical appliance fitter. He also removed a toenail on the right foot due tofungal infection. She denies trauma, CP, SOB, ecchymosis or rash of the area. Patient Vitals for the past 8 hrs: BP Temp Temp src Pulse SpO2 10/14/15 1136 156/69 - - - - 10/14/15 1134 - 36.8 ??C (98.2 ??F) Oral 67 98 % I have reviewed the vital signs which are notable for: normal Review of Systems Constitutional: Negative for chills and fever. HENT: Negative for sore throat. Eyes: Negative for visual disturbance. Respiratory: Negative for shortness of breath. Cardiovascular: Negative for chest pain and leg swelling. Gastrointestinal: Negative for abdominal pain. Musculoskeletal: Positive for joint swelling (left lower, greater than 1 month). Skin: Negative for color change (denies ecchymosis of LLE) and rash. Neurological: Negative for weakness. Physical Exam Constitutional: She is oriented to person, place, and time. She appears well- developed and well-nourished. HENT: Head: Normocephalic. Mouth/Throat: Oropharynx is clear and moist. Poor dentition Eyes: EOM are normal. No scleral icterus. Neck: Normal range of motion. Cardiovascular: Normal rate and regular rhythm. Pulmonary/Chest: Effort normal and breath sounds normal. Abdominal: Soft. There is no tenderness. Musculoskeletal: She exhibits no edema or deformity. RLE normal with 5/5 strength and sensation intact; LLE 5/5 knee flexion and extension, passive ROM intact at ankle with pain limited plantar and dorsiflexion, tender to palpation over the upper left metartarsal mid foot, nontender to palpation over medial and lateral malleolous, abnormal sensation a long lateral aspect of left foot; 2+ DP and PT pulses on left lower extremity, no erythema, no edema, no deformity noted of left lower extremity Neurological: She is alert and oriented to person, place, and time. Skin: Skin is warm and dry. No rash noted. No erythema. No pallor. Psychiatric: She has a normal mood and affect. ED Course: - Medications, allergies and past medical history reviewed - Patient interviewed and examined -Discussed with attending physciain -Medications and fluids administered: none -I have reviewed the labs which are notable for: none -I have reviewed the imaging which is notable for: No fracture identified of left lower extremity MDM: Susan Whitney is a 45 y.o. female presenting with left lower foot and ankle pain. Differential consists of acute fracture, tendonitis, bursitis. As XR did not reveal an acute fracture and thereis no evidence of trauma by exam or history, this is less likely. It is possible patient has a tendonitis of the lower extremity. Advised trial of ibuprofen (script provided) with cocomitant use of zantac or H2 vega for GI upset. Made a referral to [facility] and patient also stated she will try to see her surgical appliance fitter as well for continued follow up. We have discussed return precautions and the patient is in agreement with the plan. Disposition: discharge to home Gisell Hill MD PGY-1 Gisell Hill MD Resident 10/14/15 1540 ED ATTENDING ATTESTATION NOTE The patient was seen in conjunction with Dr. Hill, the resident physician. I have independently performed the gonzalez portions of the history and physical exam. I have reviewed the nursing notes, vital signs, and all diagnostic studies personally including labs, imaging studies and EKGs. I have discussed the details of the case with the resident and agree with the assessment and plan as described in the resident note above unless noted otherwise below. Brief Summary: pain on dorsum of foot. Worse with palpation over extensor tendons and passive plantar flexion. No swelling/redness. No fevers. No rash or other joint pains. sray neg. Will treat conservatively for tendonitis for now and advised to f/u if not improving in 1-2 weeks. Final Assessment: foot pain, probably tendonitis Jamal Ford MD 10/16/15 1042 documented in this encounter Miscellaneous Notes * ED Triage - Alba Szymanski RN - 10/14/2015 11:32 AM EDT Patient has been experiencing increasing left foot pain over the last week. Patient reports she is unable to identify anything that may have caused injury. Patient reports pain is much worse this morning. documented in this encounter Plan of Treatment Upcoming Encounters Date Type Department Care Team (Late st Contact Info) Description 12/04/2023 8:00 AM EDT Office Visit [place] [address] Cyn Murphy, PT [facility] PHYSICAL MEDICINE & [place] [address] 12/04/2023 10:45 AM EDT Appointment XRay at [address] [place] [address] 12/04/2023 11:40 AM EDT Office Visit [place] [phone] Jennifer Stanley, HEATING OPERATORS ENGINEER [facility] [place] [address] Scheduled Referrals Name Type Priority Associated Diagnoses Orde r Schedule Referral to Podiatry Outpatient Referral Routine Ordered: 10/14/2015 documented as of this encounter Procedures Procedure Name Priority Date/Time Associated Diagnosis Comments XR FOOT 1-2 VIEWS LEFT STAT 10/14/2015 1:59 PM EDT documented in this encounter Results * XR Foot AP & Lateral Left (10/14/2015 1:59 PM EDT) Anatomical Region Laterality Modality Foot Left Digital Radiogra phy Impressions 10/14/2015 2:05 PM EDT 1. ??No acute fracture or dislocation. 2. ??Mild degenerative changes. Narrative 10/14/2015 2:05 PM EDT EXAMINATION: XR FOOT AP AND LATERAL LEFT CLINICAL HISTORY: foot pain TECHNIQUE: 3 views COMPARISON: None FINDINGS: There is normal alignment of the digits of the left foot. No fracture or dislocation. Degenerative changes are noted with small dorsal osteophytes at the talonavicular joint. There is mild narrowing of the IP joints. A prominent Achilles tendon and plantar spur are noted. Procedure Note Jennifer Dee MD - 10/14/2015 EXAMINATION: XR FOOT AP AND LATERAL LEFT CLINICAL HISTORY: foot pain TECHNIQUE: 3 views COMPARISON: None FINDINGS: There is normal alignment of the digits of the left foot. No fracture or dislocation. Degenerative changes are noted with small dorsal osteophytesat the talonavicular joint. There is mild narrowing of the IP joints. Aprominent Achilles tendon and plantar spur are noted. IMPRESSION 1. No acute fracture or dislocation. 2. Mild degenerative changes. Jamal Ford MD IMG DX ORDERABLES documented in this encounter Visit Diagnoses Diagnosis Foot pain, left Pain in limb Left ankle pain, unspecified chronicity Left foot pain Pain in limb documented in this encounter Care Teams Environmental Property Assessor Relationship Specialty Start Date End Date Adarsh Wynn MD [facility] [address] [place] [address] PCP - General General Internal Medicine 05/25/1507/24 documented as of this encounter
--- OUTSIDE RECORDS SUMMARY | 2023-11-15 04:26 | XMS_ITS | Encounter Summary ---
Author Organization [facility] Address [facility] [place] [address] Care Team Providers Care Mortgage Banker Name Role Phone Jennifer Suarez APRN Primary Care Provider [phone] Reason for Referral * Diagnostic Test (Routine) - Closed Specialty Diagnoses / Procedures Referred By Contac t Referred To Contact Radiology Diagnoses Left foot pain Procedures XR Fluoro Guided Joint Injection Medium Left Freddie Mtz MD [facility] [place] [address] [facility] Rad Xray [address] [place] [address] [place] [address] Referral ID Status Reason Start Date Expiration Date V isits Requested Visits Authorized [id number] Closed Specialty Service Requested 08/17/2020 02/17/2022 1 1 Reason for Visit * Reason Comments Establish Care Left foot/ankle pain HO Left Ankle Fusion 2017 KATY * Consultation (Routine) - Closed Specialty Diagnoses / Procedures Referred By Contac t Referred To Contact Orthopaedics Diagnoses LEFT FOOT/ANKLE PAIN/ HO L ANKLE FUSION 2017/ KATY Chung Lucas MD [address] [place] [address] Tio Mayo MD [facility] [place] [address] Referral ID Status Reason Start Date Expiration Date V isits Requested Visits Authorized [id number] Closed Consult, Test & Treat [facility] PCP Updated and/or Approved 07/14/2020 07/14/2021 6 6 Encounter Details Date Type Department Care Team (Late st Contact Info) Description 08/17/2020 4:00 PM EDT Office [place] [address] Tio Mayo MD [facility] [place] [address] Left foot pain Social History Tobacco Use Types Packs/Day Years [...] Reading Time Taken Comments Blood Pressure 139/78 08/17/2020 3:38 PM EDT Pulse 76 08/17/2020 3:38 PM EDT Temperature - - Respiratory Rate - - Oxygen Saturation - - Inhaled Oxygen Concentration - - Weight 106.1 kg (234 lb) 08/17/2020 3:38 PM EDT reported Height 165.1 cm (5' 5) 08/17/2020 3:38 PM EDT r eported Body Mass Index 38.94 08/17/2020 3:38 PM EDT documented in this encounter Progress Notes * Freddie Mtz MD - 08/17/2020 4:00 PM EDT Orthopaedic Office Note Attending: Dr. Gael Reed Myronhenny is a 50 y.o. female who presents to see us in consultation today for left ankle painat the request of: Chung Lucas MD [address] [place] [address] History of Present Illness: Susan Whitney is a 50 y.o. female who presents with several months of the atraumatic onset of progressive left ankle pain after rolling her ankle in the late fall 2019. 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 The patient did very well after that operation and has been pleased with her surgical result. She endorses rolling her ankle in the late fall 2019 and notes the progressive onset of ankle pain with weightbearing since that time. Her pain is localized to the lateral aspect of herankle although does occasionally radiate medially. She denies any numbness or tingling throughout he r left lower extremity. She denies any issues with wound healing from her previous surgery. Past Medical History: Patient Active Problem List Diagnosis Code ??? Left foot pain M79.672 Past Surgical History: Past Surgical History: Procedure Laterality Date ??? SECTION ??? ECTOPIC SURGERY x 2 ??? ORTHOPEDIC SURGERY ??? TUBAL LIGATION Allergies Allergen Reactions ??? Latex ??? Adhesive Other reaction(s): Skin Rash ??? Nsaids (Non-Steroidal Anti-Inflammatory Drug) Other reaction(s): d/t vertical sleeve gastectomy ??? Codeine Low blood pressure ??? Demerol [Meperidine] ??? Percocet [Oxycodone-Acetaminophen] ??? Phenergan [Promethazine] ??? Simethicone ??? Vicodin [Hydrocodone-Acetaminophen] Social History: Social History Socioeconomic History ??? Marital status: Domestic Partner Spouse name: Not on file ??? Number of children: Not on file ??? Years of education: Not on file ??? Highest education level: Not on file Occupational History ??? Not on file Tobacco Use ??? Smoking status: Never Smoker ??? Smokeless tobacco: Never Used Substance and Sexual Activity ??? Alcohol use: Yes Comment: rarely ??? Drug use: No ??? Sexual activity: Yes Partners: Male Other Topics Concern ??? Do You live alone? Not Asked ??? Tobacco in Home Not Asked Social History Narrative ??? Not on file Social Determinants of Health Financial Resource Strain: ??? Difficulty of Paying Living Expenses: Food Insecurity: ??? Worried About Running Out of Food in the Last Year: ??? Ran Out of Food in the Last Year: Transportation Needs: ??? Lack of Transportation (Medical): ??? Lack of Transportation (Non-Medical): Physical Activity: ??? Days of Exercise per Week: ??? Minutes of Exercise per Session: Review of Systems: As above, otherwise negative Objective: GENERAL: Well appearing, NAD, awake, alert, appropriately answers questions HEENT- Normocephalic, atraumatic CV- RRR checked peripherally PULM- No increased work of breathing Skin- Intact Psych- Nl mood and affect Left ankle: Pain to palpation at the lateral aspect of the tibiotalar joint. No pain to palpation along the peroneal tendons. Pain to palpation with axial loading of the ankle at the tibiotalar joint. Mild pain to palpation at the talonavicular joint. Approximately 15 degrees of ankle dorsiflexion and 20 degrees of ankle plantarflexion, mild pain throughout this range of motion which does not change with the knee in flexion or extension. Neurovascularly intact distally. Imaging: Radiographs of the left ankle reviewed. These demonstrate degenerative changes of the tibiotalar joint and the talonavicular joint. CT scan of the left ankle was reviewed. This demonstrates a well-healed subtalar fusion with [address] Degenerative changes throughout thetibiotalar joint and talonavicular joint as previously appreciated on the radiographs are again appreciated. 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 All images personally reviewed with Dr. Mayo Assessment/Plan: 50 y.o. female who presents with several months of lateral ankle pain in the context of a previous subtalar fusion. We had extensive discussion with the patient regarding her diagnosis and subsequent treatment options. The patient's physical exam does seem to localize to the tibiotalar joint which corresponds to degenerative changes on both her radiographs and CT scan. We discussed obtaining a fluoroscopy guided injection of lidocaine of the tibiotalar joint for both diagnosticand therapeutic purposes. If this provided significant pain relief, we would discuss further surgical options which would include total ankle arthroplasty or subtalar fusion. Follow up: After left tibiotalar joint injection ?? This plan was discussed with the patient and they are in agreement. All of the patient's questions were answered. ?? She was seen alongside Dr. Mayo who was in agreement with this plan. The above dictation was made with voice recognition software FREDDIE MTZ MD PGY5 Orthopaedic Surgery Resident * Tio Mayo MD - 08/17/2020 4:00 PM EDT I saw the patient in conjunction with Dr. Mtz and agree with his assessment and plan. 50-year-old female who is status post subtalar fusion with Dr. Lucas. She is overall done quite well from this procedure. She did have an acute injury recently and has subsequently had lateral sided ankle pain. She points to her lateral tibiotalar joint as the source of this pain. She does have some residual hindfoot varus on the right. She has pain with palpation along the lateral tibiotalar joint line. She does have a palpable clunk with anterior drawer. There is crepitus with passive ankle dorsiflexion and limited dorsiflexion. Her CT scan and x-rays show good fusion across the subtalar joint, with significant signs of arthrosis in the tibiotalar joint including anterior distal tibial osteophytes. We agreed to move forward with a fluoroscopically guided local anesthetic injection into the tibiotalar joint. If this resolves her symptoms, unfortunately I think her discomfort is coming from tibiotalar arthritis. If that is the case, we could discuss tibiotalar fusion or total ankle arthroplasty if and when she has exhausted nonoperative measures. Given her slight persistent varus hindfoot alignment, if we were to consider ankle arthroplasty she may need a lateral closing wedge calcaneal osteotomy prior. documented in this encounter Plan of Treatment Upcoming Encounters Date Type Department Care Team (Late st Contact Info) Description 12/04/2023 8:00 AM EDT Office [place] [address] Cyn Murphy, PT [facility] PHYSICAL MEDICINE & [place] [address] 12/04/2023 10:45 AM EDT Appointment XRay at [address] [place] [address] 12/04/2023 11:40 AM EDT [place] [address] Jennifer Stanley APRN [facility] [place] [address] documented as of this encounter Results * XR Fluoro Guided Joint Injection Medium Left (09/06/2020 4:02 PM EDT) Anatomical Region Laterality Modality Left Radio Fluoroscop y Impressions 09/07/2020 10:30 AM EDT Uneventful left ankle tibiotalar joint injection with anesthetic only under fluoroscopy. Resident/ Fellow: None Attending: There was no attending present for this procedure Procedure performed by Janell Shah APRN Thank you for letting us participate in the care of this patient. ??If you are a health care provider and have any questions regarding this report, please contact the number below. ??For patients who have questions please contact the health career technology teacher that requested your imaging first. ? Narrative 09/07/2020 10:30 AM EDT HISTORY: Left ankle arthritis LEFT ANKLE TIBIOTALAR JOINT ??INJECTION WITH ANESTHETIC ONLY UNDER FLUOROSCOPY TECHNIQUE: After an extensive conversation with the patient regarding risks and benefits, oral and written consent were obtained. A pre- procedural time-out was performed, including review of the patient's relevant electronic medical record and allergies, as per [facility] protocol. The patient was placed supine on the fluoroscopic table. ??The skin overlying the left lateral ankle tibiotalar joint was prepped and draped in the usual aseptic manner. 1% Lidocaine was used to achieve local anesthesia. Under fluoroscopic guidance, a 25-gauge 1.5 inch needle was advanced into the joint space. ??Small amount of Omnipaque 300 contrast was injected to the document needle placement. Ropivacaine only ??was injected. All needles removed at end of procedure. FINDINGS: 1. ??Small amount of injected contrast in the joint space. 2. ??PAIN SCORE: ??Before: 5/10 ??After: ??3/10 3. Fluoroscopy time: 0.30 minutes 4. Medications: ??Lidocaine 1% - <5 ml, for subcutaneous anesthesia ?? A mixture composed of the following medication was prepared: Ropivacaine HCL ??0.5% - 3 ml Total injected volume: 3ml COMPLICATIONS: None immediate. POST-PROCEDURE CARE: Information regarding monitor of infection, post- procedural pain and management,were reviewed with patient. Procedure Note Janell Shah, ELECTRONIC INDUCTION HARDENER - 09/07/2020 HISTORY: Left ankle arthritis LEFT ANKLE TIBIOTALAR JOINT INJECTION WITH ANESTHETIC ONLY UNDERFLUOROSCOPY TECHNIQUE: After an extensive conversation with the patient regarding risks andbenefits, oral and written consent were obtained. A pre- procedural time-out was performed, including review of the patient's relevant electronic medicalrecord and allergies, as per [facility] protocol. The patient was placed supine on the fluoroscopic table. The skinoverlying the left lateral ankle tibiotalar joint was prepped and draped in the usualaseptic manner. 1% Lidocaine was used to achieve local anesthesia. Underfluoroscopic guidance, a 25-gauge 1.5 inch needle was advanced into the joint space.Small amount of Omnipaque 300 contrast was injected to the document needleplacement. Ropivacaine only was injected. All needles removed at end of procedure. FINDINGS: 1. Small amount of injected contrast in the joint space. 2. PAIN SCORE: Before: 5/10 After: 3/10 3. Fluoroscopy time: 0.30 minutes 4. Medications: Lidocaine 1% - <5 ml, for subcutaneous anesthesia A mixture composed of the following medication was prepared: Ropivacaine HCL 0.5% - 3 ml Total injected volume: 3ml COMPLICATIONS: None immediate. POST-PROCEDURE CARE: Information regarding monitor of infection, post- procedural pain and management,were reviewed with patient. IMPRESSION Uneventful left ankle tibiotalar joint injection with anesthetic onlyunder fluoroscopy. Resident/ Fellow: None Attending: There was no attending present for this procedure Procedure performed by Janell Shah APRN Thank you for letting us participate in the care of this patient. If youare a health care provider and have any questions regarding this report,please contact the number below. For patients who have questions please contactthe health career technology teacher that requested your imaging first. Tio Mayo MD IMG FLUORO ORDERABLE S documented in this encounter Visit Diagnoses Diagnosis Left foot pain Pain in limb Left foot pain Pain in limb documented in this encounter Care Teams Mortgage Banker Relationship Specialty Start Date End Date Jennifer Suarez APRN [address] [facility] [place] [address] PCP - General Family Medicine 07/14/20 11/20/22 documented as of this encounter
--- OUTSIDE RECORDS SUMMARY | 2023-11-15 04:26 | XMS_ITS | Encounter Summary ---
Author Organization [facility] Address [facility] [place] [address] Care Team Providers Care Community Living Instructor Name Role Phone Jennifer Suarez APRN Primary Care Provider [phone] Encounter Details Date Type Department Care Team (Late st Contact Info) Description 12/31/2020 Telephone [place] [address] Karey De PA [facility] [place] [address] Social History Tobacco Use Types Packs/Day Years [...] encounter Miscellaneous Notes * Telephone Encounter - Prasanna Pastor - 12/31/2020 3:50 PM EDT Called patient back with regards to her fall in the parking lot. Patient was still in her boot at the time. I advised that with the open wounds, she is predisposed to being hypersensitive. I advised that if she develops any fever, aches, chills, uncontrolled pain, significant increase indischarge, or significant swelling and redness that she should go to an Emergency Department for further evaluation and care. Patient was advised on an icing regimen to 20 minutes of ice, remove the ice, allow the area to rewarm to normal body temperature, then ice again for 20 minutes as needed throughout the day. It was explained in depth that our bodies react to long time periods of cold that are not advantageous for the purpose of the treatment. It was explained that when a portion of our body is too cold for too long, our bodies work to warm that area back to normal body temperature by sending extra blood througha process called shunting. In a recent study, it was discovered that the 20-minute cryotherapy treatment time was ideal to obtain therapeutic gains without triggering this shunting reaction. She was also told to elevate above the level of her heart. The patient verbalized understanding of these instructions and will adjust appropriately. * Telephone Encounter - Laila Bro - 12/31/2020 1:50 PM EDT Patient called in and stated that while crossing a parking lot she lost her balance and went down on that foot pretty hard. She is concerned and wondering if she should get it checked. Please call patient at [phone] documented in this encounter Plan of Treatment Upcoming Encounters Date Type Department Care Team (Late st Contact Info) Description 12/04/2023 8:00 AM EDT Office Visit [place] [address] Cyn Murphy, PT [facility] PHYSICAL MEDICINE & [place] [address] 12/04/2023 10:45 AM EDT Appointment XRay at [address] [place] [address] 12/04/2023 11:40 AM EDT Office Visit [place] [address] Jennifer Stanley APRN [facility] [place] [address] documented as of this encounter Visit Diagnoses Not on filedocumented in this encounter Care Teams Community Living Instructor Relationship Specialty Start Date End Date Jennifer Suarez APRN [address] [place] [address] PCP - General Family Medicine 07/14/20 11/20/22 documented as of this encounter
--- OUTSIDE RECORDS SUMMARY | 2023-11-15 04:26 | XMS_ITS | Encounter Summary ---
Author Organization [facility] Address [facility] [place] [address] Care Team Providers Care Quality Control Lab Tech Name Role Phone Jennifer Suarez APRN Primary Care Provider Reason for Visit * Reason Comments Follow Up Surgery L FOOT/ANKLE PAIN/ H O L ANKLE FUSION 2016, discuss surg options Encounter Details Date Type Department Care Team (Late st Contact Info) Description 10/12/2020 4:00 PM EDT Office [place] [phone] Tio Mayo MD [facility] [place] [address] Arthritis of left ankle (Primary Dx) Social [...] Sign Reading Time Taken Comments Blood Pressure 165/70 10/12/2020 3:57 PM EDT Pulse 71 10/12/2020 3:57 PM EDT Temperature - - Respiratory Rate - - Oxygen Saturation - - Inhaled Oxygen Concentration - - Weight 112.7 kg (248 lb 7.3 oz) 10/12/2020 3:57 PM EDT reported Height 165.1 cm (5' 5) 10/12/2020 3:57 PM EDT r eported Body Mass Index 41.35 10/12/2020 3:57 PM EDT documented in this encounter Progress Notes * Tio Mayo MD - 10/12/2020 4:00 PM EDT Chief complaint: Problem List Items Addressed This Visit Arthritis of left ankle - Primary Relevant Orders Chlorhexidine scrub: Chlorhexidine scrub: History of present illness: Susan Whitney is a 50 y.o. year-old female who I saw previously in regards to the left hindfoot pain. In brief, she had a distant subtalar fusion with Dr. Lucas. This also includes removal of osteophytes from her tibiotalar joint. She has persisted with pain in the area of her tibiotalar joint. At our last appointment we ordered a fluoroscopically guided steroid injection into her left ankle. She got complete relief of symptoms from this injection, that was short-lived. She is here to discuss treatment options moving forward, specifically total ankle arthroplasty. She is accompanied by her partner, for whom I resected a pseudoarthrosis between an osteochondroma in his fibula. He states he is doing quite well and is very happy with his results. Past medical history: Patient Active Problem List Diagnosis Date Noted ??? Arthritis of left ankle 10/13/2020 ??? Left foot pain 10/14/2015 Medications: ??? loratadine (Claritin) 10 mg Tablet ??? acetaminophen (Tylenol) 500 mg Tablet ??? gabapentin (Neurontin) 300 mg Capsule ??? aspirin EC 81 mg Tablet, Delayed Release (E.C.) ??? albuteroL 90 mcg/actuation HFA Aerosol Inhaler ??? multivitamin Capsule ??? melatonin 1 mg Tablet ??? ibuprofen (ADVIL;MOTRIN) 600 mg Tablet Allergies: Allergies Allergen Reactions ??? Latex ??? Adhesive [...] Temp: -- Physical Exam: No apparent distress. Again, standing alignment reveals relative hindfoot varus of the right foot. She has no range of motion with attempted inversion or eversion of the hindfoot. She has pain and restricted ankle dorsiflexion when passively dorsiflexed Imaging: Personal review and interpretation of the patient's imaging reveals: I again reviewed her x-rays and CT scan. Her CT scan shows solid bony union across her subtalar joint. Her talar head screw is just underneath the articular surface but does not penetrate it. She haslarge osteophytes off of the anterior tibiotalar joint and signs of arthrosis in the tibiotalar joint. Assessment: 50 y.o. 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 We discussed continued nonoperative management. She is interested in discussing surgical options. I would propose a staged procedure, with removal of her current screws, bone grafting of the screw tracts, and lateral closing wedge osteotomy. Then, between 4 and 6 months afterwards, we could pursue total ankle arthroplasty. I think with the screws just underneath the tibiotalar joint, there would be significant risk of interference between the implant and the screws. We discussed the risks of ankle arthroplasty, including bleeding, infection, damage to nerves and vessels, need for revision or fusion, and the difficult nature of fusion or revision should she need it. We discussed fusion of her tibiotalar joint and the durability of this option. We discussed the stiffness that would ensue after this, but the lower rate of complication then with total ankle arthroplasty. She would like to pursue a staged procedure for removal of her hardware and lateral closing wedge osteotomy, followed by total ankle arthroplasty. We will put in orders for both procedures. She will need a CT scan for preoperative cutting jig construction after her hardware removal case. Follow up: Preop for removal hardware and lateral closing wedge osteotomy, ideally within the next month in the trauma room first case. This plan was discussed with the patient and they are in agreement. All of the patient's questions were answered. The above dictation was made with voice recognition software documented in this encounter Plan of Treatment Upcoming Encounters Date Type Department Care Team (Late st Contact Info) Description 12/04/2023 8:00 AM EDT Office [place] [address] Cyn Murphy, PT [facility] PHYSICAL MEDICINE [facility] [place] [address] 12/04/2023 10:45 AM EDT Appointment XRay at [address] [place] [address] 12/04/2023 11:40 AM EDT Office [place] [address] Jennifer Stanley SKIDWAY WORKER [facility] [place] [address] documented as of this encounter Visit Diagnoses Diagnosis Arthritis of left ankle- Primary Unspecified arthropathy, ankle and foot documented in this encounter Care Teams Quality Control Lab Tech Relationship Specialty Start Date End Date Jennifer Suarez APRN [address] [place] [address] PCP - General Family Medicine 07/14/20 11/20/22 documented as of this encounter
--- OUTSIDE RECORDS SUMMARY | 2023-11-15 04:26 | XMS_ITS | Clinical Summary ---
Author Organization [facility] Address [address] [place] [address] Care Team Providers Care Outreach And Education Social Worker Name Role Phone Unknown, Provider Primary Care Provider [phone] Social History Tobacco Use Types Packs/Day Years Used Date Smoking Tobacco: Never Assessed Sex and Gender Information Value Date Recorded Sex Assigned at Not on file Gender Identity Female 03/07/2022 14:17 EST Sexual Orientation Not on file Plan of Treatment Health Maintenance Due Date Last Done Comments Hepatitis C Screen 1970 Hepatitis B Vaccine (1 of 3 - 19+ 3-dose series) 03/19 COVID-19 Vaccine (2022- season) 2022 Care Teams Outreach And Education Social Worker Relationship Specialty Start Date End Date Unknown, Provider, PCP - General 11/06/16
--- OUTSIDE RECORDS SUMMARY | 2023-11-15 04:26 | XMS_ITS | Referral Summary ---
Author Organization [facility] Address [address] [place] [address] Care Team Providers Care Director Of Religious Activities Name Role Phone Unknown, Provider Primary Care Provider Social History Tobacco Use Types Packs/Day Years Used Date Smoking Tobacco: Never Assessed Sex and Gender Information Value Date Recorded Sex Assigned at Not on file Gender Identity Female 03/07/2022 14:17 EST Sexual Orientation Not on file Plan of Treatment Not on file Care Teams Director Of Religious Activities Relationship Specialty Start Date End Date Unknown, Provider, PCP - General 11/06/16
--- OUTSIDE RECORDS SUMMARY | 2023-11-15 04:26 | XMS_ITS | Encounter Summary ---
Author Organization [facility] [place] [address] Care Team Providers Care Family Practice Md Name Role Phone Jennifer Suarez APRN Primary Care Provider [phone] Encounter Details Date Type Department Care Team (Latest Contact Info) Description 08/17/2020 2:33 PM EDT - 08/17/2020 11:59 PM EDT Hospital Encounter XRay at [address] [place] [address] [facility] [place] [address] Left foot pain Discharge Disposition: Home Social History Tobacco Use [...] Sig Dispensed Refills Start Date End Date albuteroL 90 mcg/actuation HFA Aerosol Inhaler INHALE ONE TO TWO PUFFS BY MOUTH EVERY 4 TO 6 HOURS NEEDED 06/10/2020 multivitamin Capsule Take 1 capsule by mouth daily. loratadine (Claritin) 10 mg Tablet Take 10 mg by mouth daily. 11/18/2021 acetaminophen (Tylenol) 500 mg Tablet Take by mouth every 6 hours as needed. 12/04/2017 11/22/2021 gabapentin (Neurontin) 300 mg Capsule Take by mouth as needed. 12/25/2019 11/21/2022 aspirin EC 81 mg Tablet, Delayed Release (E.C.) Take by mouth. 06/29/2020 12/01/2020 melatonin 1 mg Tablet Take by mouth nightly as needed. 12/06/2021 ibuprofen (ADVIL;MOTRIN) 600 mg Tablet Take 1 tablet by mouth every 6 hours as needed for Pain. 30 tablet 10/14/2015 11/22/2021 documented as of this encounter Plan of Treatment Upcoming Encounters Date Type Department Care Team (Late st Contact Info) Description 12/04/2023 8:00 AM EDT Office [place] [address] Cyn Murphy, PT [facility] PHYSICAL MEDICINE & [place] [address] 12/04/2023 10:45 AM EDT Appointment XRay at [address] [place] [address] 12/04/2023 11:40 AM EDT Office [place] [address] Jennifer Stanley, BOWLING BALL MOLD [employer]SEMBLER [facility] [place] [address] documented as of this encounter Procedures Procedure Name Priority Date/Time Associated Diagnosis Comments XR FOOT/ANKLE 5 VIEWS LEFT Routine 08/17/2020 2:47 PM EDT Left foot pain documented in this encounter Results * XR Foot/Ankle 5 Views Left (08/17/2020 2:47 PM EDT) Anatomical Region Laterality Modality Foot, Ankle Left Digital Radiogra phy Impressions 08/17/2020 3:39 PM EDT Status post subtalar joint fusion without complication. Thank you for letting us participate in the care of this patient. ??If you are a health care provider and have any questions regarding this report, please contact the number below. ??For patients who have questions please contact the health rn progressive care unit that requested your imaging first. ? Electronically signed by: AMOL MOSHER DO [facility] ([phone]), at 08/17/2020 3:39 PM Narrative 08/17/2020 3:39 PM EDT EXAMINATION: XR FOOT/ANKLE 5 VIEWS LEFT CLINICAL HISTORY: s/p left ankle fusion ~2016 TECHNIQUE: 5 views LEFT foot and ankle COMPARISON: CT left lower extremity dated 07/14/2020 FINDINGS: 2 fusion screws are present across the subtalar joint extending from the posterior inferior calcaneus to the subarticular region of the talar dome. No evident hardware complication. The subtalar joint space is not visualized. No acute fracture or dislocation. No change in alignment. Procedure Note Amol Mosher DO - 08/17/2020 EXAMINATION: XR FOOT/ANKLE 5 VIEWS LEFT CLINICAL HISTORY: s/p left ankle fusion ~2016 TECHNIQUE: 5 views LEFT foot and ankle COMPARISON: CT left lower extremity dated 07/14/2020 FINDINGS: 2 fusion screws are present across the subtalar joint extending from the posterior inferior calcaneus to the subarticular region of the talar dome.No evident hardware complication. The subtalar joint space is not visualized.No acute fracture or dislocation. No change in alignment. 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 Thank you for letting us participate in the care of this patient. If youare a health care provider and have any questions regarding this report,please contact the number below. For patients who have questions please contactthe health rn progressive care unit that requested your imaging first. Electronically signed by: AMOL MOSHER DO, DH [facility]([phone]), at 08/17/2020 3:39 PM Tio Mayo MD IMG DX ORDERABLES documented in this encounter Visit Diagnoses Diagnosis Left foot pain Pain in limb documented in this encounter Care Teams Family Practice Md Relationship Specialty Start Date End Date Jennifer Suarez, ROMINA [address] [place] [address] PCP - General Family Medicine 07/14/20 11/20/22 documented as of this encounter
--- OUTSIDE RECORDS SUMMARY | 2023-11-15 04:26 | XMS_ITS | Encounter Summary ---
[place] [address] Care Team Providers Care Pulp Maker Name Role Phone Adarsh Wynn MD Primary Care Provider [phone] Encounter Details Date Type Department Care Team (Late st Contact Info) Description 07/03/2016 Telephone Audiology at [address] [phone] Melinda Zepeda Social History Tobacco Use Types Packs/Day Years [...] encounter Miscellaneous Notes * Telephone Encounter - Melinda Zepeda - 07/03/2016 11:56 AM EDT Called to schedule follow up from recall. Left message to call back and schedule appointment. documented in this encounter Plan of Treatment Upcoming Encounters Date Type Department Care Team (Late st Contact Info) Description 12/04/2023 8:00 AM EDT Office [place] [address] Cyn Murphy, PT [facility] PHYSICAL MEDICINE & [place] [address] 12/04/2023 10:45 AM EDT Appointment XRay at [address] [place] [address] 12/04/2023 11:40 AM EDT Office Visit Orthopaedics at [facility] [place] [address] Jennifer Stanley, ROMINA [facility] [place] [address] documented as of this encounter Visit Diagnoses Not on filedocumented in this encounter Care Teams Pulp Maker Relationship Specialty Start Date End Date Adarsh Wynn MD [facility] [address] [place] [address] PCP - General General Internal Medicine 05/25/1507/24 documented as of this encounter
--- OUTSIDE RECORDS SUMMARY | 2023-11-15 04:26 | XMS_ITS | Encounter Summary ---
[place] [address] Care Team Providers Care Securities Dealer Name Role Phone Adarsh Wynn MD Primary Care Provider [phone] Encounter Details Date Type Department Care Team (Late st Contact Info) Description 08/31/2015 Telephone [place] [phone] Lyric Wallace Social History Tobacco Use Types Packs/Day Years Used Date Smoking Tobacco: Never Assessed Sex and Gender Information Value Date Recorded Sex Assigned at Not on file Gender Identity Female 08/10/2020 7:17 AM EDT Sexual Orientation Straight 08/10/2020 7: 16 AM EDT documented as of this encounter Miscellaneous Notes * Telephone Encounter - Lyric Wallace - 08/31/2015 11:17 AM EDT I called patient to move appointment to Dr. Dominique. Doing so would move this patient's appt up. I left a message for callback with my direct number. documented in this encounter Plan of Treatment Upcoming Encounters Date Type Department Care Team (Late st Contact Info) Description 12/04/2023 8:00 AM EDT Office [place] [address] Cyn Murphy, PT [facility] PHYSICAL MEDICINE & [place] [address] 12/04/2023 10:45 AM EDT Appointment XRay at [address] [place] [address] 12/04/2023 11:40 AM EDT Office Visit Orthopaedics at [facility] [place] [address] Jennifer Stanley, PAINT STRIPPER [facility] [place] [address] documented as of this encounter Visit Diagnoses Not on filedocumented in this encounter Care Teams Securities Dealer Relationship Specialty Start Date End Date Adarsh Wynn MD [facility] [address] [place] [address] PCP - General General Internal Medicine 05/25/1507/24 documented as of this encounter
--- OUTSIDE RECORDS SUMMARY | 2023-11-15 04:26 | XMS_ITS | Encounter Summary ---
[place] [address] Care Team Providers Care Classroom Monitor Name Role Phone Jennifer Suarez APRN Primary Care Provider [phone] Reason for Referral * Diagnostic Test (Routine) - Closed Specialty Diagnoses / Procedures Referred By Cheri silverman Referred To Contact Radiology Diagnoses Left foot pain Procedures XR Fluoro Guided Joint Injection Medium Left Freddie Mtz MD [facility] [place] [address] [facility] Rad Xray [address] [place] [address] [place] [address] Referral ID Status Reason Start Date Expiration Date V isits Requested Visits Authorized [id number] Closed Specialty Service Requested 08/17/2020 02/17/2022 1 1 Reason for Visit * Diagnostic Test (Routine) - Closed Specialty Diagnoses / Procedures Referred By Cheri silverman Referred To Contact Radiology Diagnoses Left foot pain Procedures XR Fluoro Guided Joint Injection Medium Left Freddie Mtz MD [facility] [place] [address] [facility] Rad Xray [address] [place] [address] [place] [address] Referral ID Status Reason Start Date Expiration Date V isits Requested Visits Authorized [id number] Closed Specialty Service Requested 08/17/2020 02/17/2022 1 1 Encounter Details Date Type Department Care Team (Latest Contact Info) Description 09/06/2020 3:21 PM EDT - 09/06/2020 11:59 PM EDT Hospital Encounter XRay at [address] [place] [address] Tio Mayo MD [facility] [place] [address] Left foot pain Discharge Disposition: Home Social [...] AM EDT documented as of this encounter Discharge Instructions * Patient Instructions* Aliza James - 09/06/2020 3:52 PM EDT Post Injection Patient Instructions You received an injection by JANELL SHAH the diagnostic section of radiology. Procedure: LEFT ANKLE INJECTION In the days following the injection: ??? Low intensity movement and exercise of the affected joint. ??? Avoid movements that worsen pain. During the first 48 hours following the injection you may experience mild discomfort at the injection site. If you experience pain or discomfort in the affected area, do the following: ??? Apply cold compress to the affected area. ??? If allowed by your physician, take an anti-inflammatory medication such as ibuprofen (example: Advil), Acetaminophen 9example: Tylenol) or Aspirin. IMPORTANT The risk of infection exists whenever the skin is punctured. The risk can be minimized by keeping the injection site clean. However, be aware of the following signs of an infection: ??? Redness and swelling at the injection site. ??? Increased pain. ??? Fever and/or chills. ??? Decreased range of motion in the joint near the injection site. If you experience any of the signs of infection listed above, telephone the diagnostic section of radiology at [phone]. documented in this encounter Medications at Time [...] AM EDT Office [place] [address] Cyn Murphy, PT [facility] PHYSICAL MEDICINE & [place] [address] 12/04/2023 10:45 AM EDT Appointment XRay at [address] [place] [address] 12/04/2023 11:40 AM EDT Office [place] [address] Jennifer Stanley, PUBLIC ADMINISTRATION TEACHER [facility] [place] [address] documented as of this encounter Procedures Procedure Name Priority Date/Time Associated Diagnosis Comments XR FLUORO INJECTION DRAINAGE JOINT LEFT Routine 09/06/2020 4:02 PM EDT Left foot pain documented in this encounter Results * XR Fluoro Guided [...] who have questions please contact the health vp care management that requested your imaging first. ? Electronically signed by: Janell Shah [facility] ([phone]), at 09/07/2020 10:30 AM Narrative 09/07/2020 10:30 AM EDT HISTORY: Left ankle arthritis LEFT ANKLE TIBIOTALAR JOINT ??INJECTION WITH ANESTHETIC ONLY UNDER FLUOROSCOPY TECHNIQUE: After an extensive conversation with the patient regarding risks and benefits, oral and written consent were obtained. A pre- procedural time-out was performed, including review of the patient's relevant electronic medical record and allergies, as per [facility] protocol. The patient was placed supine on [...] management,were reviewed with patient. Procedure Note Janell Shah APRN - 09/07/2020 HISTORY: Left ankle arthritis LEFT ANKLE TIBIOTALAR JOINT INJECTION WITH ANESTHETIC ONLY UNDERFLUOROSCOPY TECHNIQUE: After an extensive conversation with the patient regarding risks andbenefits, oral and written consent were obtained. A pre- procedural time-out was performed, including review of the patient's relevant electronic medicalrecord and allergies, as per [facility] protocol. The patient was placed supine on [...] patients who have questions please contactthe health vp care management that requested your imaging first. Electronically signed by: Janell Shah, [facility]([phone]), at 09/07/2020 10:30 AM Tio Mayo MD IMG FLUORO ORDERABLE S documented in this encounter Visit Diagnoses Diagnosis Left foot pain Pain in limb documented in this encounter Administered Medications Inactive Administered Medications - up to 3 most recent administrations Medication Order MAR Action Action Date Dose Rate Site iohexoL (Omnipaque) (300 mg/mL) injection solution 10 mL 10 mL, Intra-articular, ONCE, 1 dose, On Sun09/06/20 at 1630, Warning Vesicant/Irritant Medication , Routine Given 09/06/2020 4:30 PM EDT 3 mLs ROpivacaine (PF) 0.5% (5 mg/mL) 20 mg, lidocaine (pf) 1% (10 mg/mL) 40 mg injection (Radiology Prep) Intra-articular, ONCE, 1 dose, On Sun09/06/20 at 1615, For Radiology Use Only: Medium-Large Joint Injection Given 09/06/2020 4:15 PM EDT documented in this encounter Care Teams Classroom Monitor Relationship Specialty Start Date End Date Jennifer Suarez, ROMINA [address] [place] [place] [address] PCP - General Family Medicine 07/14/20 11/20/22 documented as of this encounter
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
--- OUTSIDE RECORDS SUMMARY | 2023-11-15 04:26 | XMS_ITS | Encounter Summary ---
Author Organization [facility] Address [address] [place] [address] Care Team Providers Care Sampling Theory Teacher Name Role Phone Unknown, Provider Primary Care Provider Encounter Details Date Type Department Care Team (Late st Contact Info) Description 03/07/2022 14:15 EST Phlebotomy Only [facility] Laboratory Services - [address] [address] Assembly Clean[employer], [facility] Immunity status testing; Screening examination for pulmonary tuberculosis Social History Tobacco Use Types Packs/Day Years Used Date Smoking Tobacco: Never Assessed Sex and Gender Information Value Date Recorded Sex Assigned at Not on file Gender Identity Female 03/07/2022 14:17 EST Sexual Orientation Not on file documented as of this encounter Plan of Treatment Not on file documented as of this encounter Procedures Procedure Name Priority Date/Time Associated Diagnosis Comments QUANTIFERON MITOGEN (PERFORMABLE) Routine 03/07/2022 14:39 EST Screening examination for pulmonary tuberculosis QUANTIFERON TB2 (PERFORMABLE) Routine 03/07/2022 14:39 EST Screening examination for pulmonary tuberculosis QUANTIFERON TB1 (PERFORMABLE) Routine 03/07/2022 14:39 EST Screening examination for pulmonary tuberculosis QUANTIFERON NIL (PERFORMABLE) Routine 03/07/2022 14:39 EST Screening examination for pulmonary tuberculosis QUANTIFERON INTERPRETATION (PERFORMABLE) Today 03/07/2022 14:39 EST Screening examination for pulmonary tuberculosis QUANTIFERON TB GOLD PLUS Routine 03/07/2022 14:39 EST Screening examination for pulmonary tuberculosis MEASLES IGG AB Routine 03/07/2022 14:39 EST Immunity status testing RUBELLA IGG ANTIBODY Routine 03/07/2022 14:39 EST Immunity status testing HEPATITIS B SURFACE ANTIBODY Routine 03/07/2022 14:39 EST Immunity status testing VARICELLA IGG ANTIBODY Routine 14:39 EST Immunity status testing MUMPS ANTIBODY IGG Routine 03/07/2022 14 :39 EST Immunity status testing documented in this encounter Results * QUANTIFERON INTERPRETATION (PERFORMABLE) (03/07/2022 14:39 EST) Quantiferon Interpretation Negative Negative 03/08/2022 13:30 EST [facility] Comment:No interferon-gamma response to M. tuberculosis antigens was detected. ??Infection with M. tuberculosis is unlikely. A single negative result does not exclude infection with M. tuberculosis. ??In patients at high risk for M. tuberculosis infection, a second test should be considered. TB1 Ag minus Nil 0.00 IU/ml 03/08/20 13:30 EST [facility] TB2 Ag minus Nil 0.00 IU/mL 03/08/20 13:30 EST [facility] Blood VENOUS BLOOD / Unknown Venipuncture / Unknown 03/07/2022 14:39 EST 03/08/2022 12:40 EST Narrative [facility] - 03/08/2022 13:30 EST Results were obtained with the Qiagen QuantiFERON-TB Gold Plus CLIA. New platform in use 12/01/2020 Nelson Correia MD IMMUNOLOGY AND SEROLOGY ORDERABLES [facility] [address] [place] [address] * QUANTIFERON MITOGEN (PERFORMABLE) (03/07/2022 14:39 EST) Blood VENOUS BLOOD / Unknown Venipuncture / Unknown 03/07/2022 14:39 EST 03/07/2022 14:39 EST Nelson Correia MD IMMUNOLOGY AND SEROLOGY ORDERABLES Performing Organization Address [facility] de Phone Number [facility] [address] [place] [address] * QUANTIFERON TB2 (PERFORMABLE) (03/07/2022 14:39 EST) Blood VENOUS BLOOD / Unknown Venipuncture / Unknown 03/07/2022 14:39 EST 03/07/2022 14:39 EST Nelson Correia MD IMMUNOLOGY AND SEROLOGY ORDERABLES Performing Organization Address [facility] Co de Phone Number [facility] [address] [place] [address] * QUANTIFERON TB1 (PERFORMABLE) (03/07/2022 14:39 EST) Blood VENOUS BLOOD / Unknown Venipuncture / Unknown 03/07/2022 14:39 EST 03/07/2022 14:39 EST Nelson Correia MD IMMUNOLOGY AND SEROLOGY ORDERABLES Performing Organization Address [facility] Co de Phone Number [facility] [address] [place] [address] * QUANTIFERON NIL (PERFORMABLE) (03/07/2022 14:39 EST) Blood VENOUS BLOOD / Unknown Venipuncture / Unknown 03/07/2022 14:39 EST 03/07/2022 14:39 EST Nelson Correia MD IMMUNOLOGY AND SEROLOGY ORDERABLES Performing Organization Address [facility] Co de Phone Number [facility] [address] [place] [address] * VARICELLA IGG ANTIBODY (03/07/2022 14:39 EST) Varicella IgG Ab Positive See Note 03/08/2022 10:10 EST [facility] Comment:Presence of detectab le Varicella Zoster virus IgG antibodies. Blood VENOUS BLOOD / Unknown Venipuncture / Unknown 03/07/2022 14:39 EST 03/07/2022 14:39 EST Nelson Correia MD IMMUNOLOGY AND SEROLOGY ORDERABLES Performing Organization Address [facility] Co de Phone Number [facility] [address] [place] [address] * RUBELLA IGG ANTIBODY (03/07/2022 14:39 EST) Rubella IgG Ab Positive See Note 03/08/2022 10:18 EST [facility] Comment:Positive for IgG ant ibodies to Rubella virus. Blood VENOUS BLOOD / Unknown Venipuncture / Unknown 03/07/2022 14:39 EST 03/07/2022 14:39 EST Nelson Correia MD CHEMISTRY & BLO OD GAS ORDERABLES Performing Organization Address [facility] de Phone Number [facility] [address] [place] [address] * MUMPS ANTIBODY IGG (03/07/2022 14:39 EST) Mumps Antibody IgG Positive See Note 03/08/2022 10:16 EST [facility] Comment:Presence of detectab le mumps virus IgG antibodies. Blood VENOUS BLOOD / Unknown Venipuncture / Unknown 03/07/2022 14:39 EST 03/07/2022 14:39 EST Nelson Correia MD IMMUNOLOGY AND SEROLOGY ORDERABLES Performing Organization Address [facility] de Phone Number [facility] [address] [place] [id number] * MEASLES IGG AB (03/07/2022 14:39 EST) Measles IgG Ab Positive See Note 03/08/2022 10:13 EST [facility] Comment:Presence of detectab le measles virus IgG antibodies. Blood VENOUS BLOOD / Unknown Venipuncture / Unknown 03/07/2022 14:39 EST 03/07/2022 14:39 EST Nelson Correia MD IMMUNOLOGY AND SEROLOGY ORDERABLES Performing Organization Address [facility] Co de Phone Number [facility] [address] [place] [address] * HEPATITIS B SURFACE ANTIBODY (03/07/2022 14:39 EST) Hep B Surface Ab, Quantitative 7.6 See Note mIU/mL 03/08/2022 9:47 EST [facility] Comment: Reference Range for Hep B Surface Ab, Quant: Positive: >= 10.0 mIU/mL Negative: ??< 10.0 mIU/mL Patient is presumed to not be immune to infection with Hepatitis B Virus. Hep B Surface Ab, Qualitative Negative See Note 03/08/2022 9:47 EST [facility] Comment: Reference Range for Hep B Surface Ab, Qual: Unvaccinated: ??Negative Vaccinated: ??Positive Blood VENOUS BLOOD / Unknown Venipuncture / Unknown 03/07/2022 14:39 EST 03/07/2022 14:39 EST Nelson Correia MD CHEMISTRY & BLO OD GAS ORDERABLES Performing Organization Address [facility] Co de Phone Number [facility] [address] [place] [address] documented in this encounter Visit Diagnoses Diagnosis Immunity status testing Antibody response examination Screening examination for pulmonary tuberculosis documented in this encounter Care Teams Sampling Theory Teacher Relationship Specialty Start Date End Date Unknown, Provider, PCP - General 11/06/16 documented as of this encounter
--- OUTSIDE RECORDS SUMMARY | 2023-11-15 04:26 | XMS_ITS | Encounter Summary ---
Author Organization [facility] [place] [address] Care Team Providers Care Admiralty Lawyer Name Role Phone Jennifer Suarez APRN Primary Care Provider [phone] Encounter Details Date Type Department Care Team (Late st Contact Info) Description 08/09/2020 Orders [place] [phone] Land, Kourtney E, RMA Left foot pain Social History Tobacco Use [...] EDT Office Visit [place] [phone] Cyn Murphy, PT [facility] PHYSICAL MEDICINE & [place] [address] 12/04/2023 10:45 AM EDT Appointment XRay at [address] [place] [address] 12/04/2023 11:40 AM EDT Office Visit [place] [address] Jennifer Stanley APRN [facility] DR [place] [address] documented as of this encounter Results * XR Foot/Ankle 5 [...] who have questions please contact the health resident care supervisor that requested your imaging first. ? Electronically signed by: AMOL MOSHER DO, [facility] ([phone]), at 08/17/2020 3:39 PM Narrative 08/17/2020 3:39 [...] patients who have questions please contactthe health resident care supervisor that requested your imaging first. Tio Mayo MD IMG DX ORDERABLES documented in this encounter Visit Diagnoses Diagnosis Left foot pain Pain in limb Left foot pain Pain in limb documented in this encounter Care Teams Admiralty Lawyer Relationship Specialty Start Date End Date Jennifer Suarez APRN [address] [place] [address] PCP - General Family Medicine 07/14/20 11/20/22 documented as of this encounter
--- OUTSIDE RECORDS SUMMARY | 2023-11-15 04:26 | XMS_ITS | Encounter Summary ---
Author Organization [facility] [place] [address] Care Team Providers Care Cattle Alley Worker Name Role Phone Jennifer Suarez APRN Primary Care Provider Encounter Details Date Type Department Care Team (Late st Contact Info) Description 07/14/2020 Ancillary Procedure [place] [address] Tio Mayo MD [facility] [place] [address] Social History Tobacco Use Types Packs/Day Years [...] AM EDT Office [place] [phone] Cyn Murphy, PT [facility] PHYSICAL MEDICINE & [place] [address] 12/04/2023 10:45 AM EDT Appointment XRay at [address] [place] [address] 12/04/2023 11:40 AM EDT Office Visit Orthopaedics at [facility] [place] [address] Jennifer Stanley APRN [facility] [place] [address] documented as of this encounter Procedures Procedure Name Priority Date/Time Associated Diagnosis Comments FILM LIBRARY STORAGE ONLY CT LOWER EXTREMITY Routine 07/14/2020 12:00 AM EDT documented in this encounter Results * Film Library- Storage Only CT Lower Extremity (07/14/2020 12:00 AM EDT) Narrative [facility] - 07/16/2020 9:03 AM EDT This exam is auto-finalizing. It's purpose is for storage only. Tio Mayo MD IMG FILM LIBRARY ORD ERABLES [place], [place] documented in this encounter Visit Diagnoses Not on filedocumented in this encounter Care Teams Cattle Alley Worker Relationship Specialty Start Date End Date Jennifer Suarez APRN [address] [place] [address] PCP - General Family Medicine 07/14/20 11/20/22 documented as of this encounter
--- OUTSIDE RECORDS SUMMARY | 2023-11-15 04:26 | XMS_ITS | Encounter Summary ---
Author Organization [facility] Address [address] [place] [address] Care Team Providers Care Certified Financial Planner Name Role Phone Unknown, Provider Primary Care Provider [phone] Encounter Details Date Type Department Care Team (Late st Contact Info) Description 10/06/2022 Orders Only [facility] [place] - [address] [address] Betzaida Hernandez RN Social History Tobacco Use Types Packs/Day Years Used Date Smoking Tobacco: Never Assessed Sex and Gender Information Value Date Recorded Sex Assigned at Not on file Gender Identity Female 03/07/2022 14:17 EST Sexual Orientation Not on file documented as of this encounter Plan of Treatment Not on file documented as of this encounter Visit Diagnoses Not on filedocumented in this encounter Care Teams Certified Financial Planner Relationship Specialty Start Date End Date Unknown, Provider, PCP - General 11/06/16 documented as of this encounter
--- OUTSIDE RECORDS SUMMARY | 2023-11-15 04:26 | XMS_ITS | Encounter Summary ---
Author Organization [facility] Address [address] [place] [address] Care Team Providers Care Claim Trainee Name Role Phone Unknown, Provider Primary Care Provider Encounter Details Date Type Department Care Team (Late st Contact Info) Description 09/07/2022 Orders Only [facility] [place] [address] [address] Betzaida Hernandez RN Immunity status testing (Primary Dx) Social History Tobacco Use Types Packs/Day Years Used Date Smoking Tobacco: Never Assessed Sex and Gender Information Value Date Recorded Sex Assigned at Not on file Gender Identity Female 03/07/2022 14:17 EST Sexual Orientation Not on file documented as of this encounter Plan of Treatment Not on file documented as of this encounter Visit Diagnoses Diagnosis Immunity status testing- Primary Antibody response examination documented in this encounter Care Teams Claim Trainee Relationship Specialty Start Date End Date Unknown, Provider, PCP - General 11/06/16 documented as of this encounter
--- OUTSIDE RECORDS SUMMARY | 2023-11-15 04:26 | XMS_ITS | Encounter Summary ---
Author Organization [facility] Address [address] [place] [address] Care Team Providers Care Transmission Systems Operator Name Role Phone Unknown, Provider Primary Care Provider Encounter Details Date Type Department Care Team (Late st Contact Info) Description 03/06/2022 Orders Only [facility] - Main [address] [address] Adore Roman RN [address] [place] [address] Screening examination for pulmonary tuberculosis (Primary Dx); Immunity status testing Social History Tobacco Use Types Packs/Day Years Used Date Smoking Tobacco: Never Assessed Sex and Gender Information Value Date Recorded Sex Assigned at Not on file Gender Identity Female 03/07/2022 14:17 EST Sexual Orientation Not on file documented as of this encounter Plan of Treatment Not on file documented as of this encounter Results * VARICELLA IGG ANTIBODY (03/07/2022 14:39 EST) Varicella IgG Ab Positive See Note 03/08/2022 10:10 EST [facility] Comment:Presence of detectab le Varicella Zoster virus IgG antibodies. Blood VENOUS BLOOD / Unknown Venipuncture / Unknown 03/07/2022 14:39 EST 03/07/2022 14:39 EST Nelson Correia MD IMMUNOLOGY AND SEROLOGY ORDERABLES [facility] [address] [place] [address] * RUBELLA IGG ANTIBODY (03/07/2022 14:39 EST) Rubella IgG Ab Positive See Note 03/08/2022 10:18 EST [facility] Comment:Positive for IgG ant ibodies to Rubella virus. Blood VENOUS BLOOD / Unknown Venipuncture / Unknown 03/07/2022 14:39 EST 03/07/2022 14:39 EST Nelson Correia MD CHEMISTRY & BLO OD GAS ORDERABLES Performing Organization Address [facility] Co de Phone Number [facility] [address] [place] [address] * MUMPS ANTIBODY IGG (03/07/2022 14:39 EST) Mumps Antibody IgG Positive See Note 03/08/2022 10:16 EST [facility] Comment:Presence of detectab le mumps virus IgG antibodies. Blood VENOUS BLOOD / Unknown Venipuncture / Unknown 03/07/2022 14:39 EST 03/07/2022 14:39 EST Nelson Correia MD IMMUNOLOGY AND SEROLOGY ORDERABLES Performing Organization Address [facility] Co de Phone Number [facility] [address] [place] [address] * MEASLES IGG AB (03/07/2022 14:39 EST) Measles IgG Ab Positive See Note 03/08/2022 10:13 EST [facility] Comment:Presence of detectab le measles virus IgG antibodies. Blood VENOUS BLOOD / Unknown Venipuncture / Unknown 03/07/2022 14:39 EST 03/07/2022 14:39 EST Nelson Correia MD IMMUNOLOGY AND SEROLOGY ORDERABLES Performing Organization Address [facility] Co de Phone Number [facility] [address] [place] [address] * HEPATITIS B SURFACE ANTIBODY (03/07/2022 14:39 EST) Hep B Surface Ab, Quantitative 7.6 See Note mIU/mL 03/08/2022 9:47 EST [facility] Comment: Reference Range for Hep B Surface Ab, Quant: Positive: >= 10.0 mIU/mL Negative: ??< 10.0 mIU/mL Patient is presumed to not be immune to infection with Hepatitis B Virus. Hep B Surface Ab, Qualitative Negative See Note 03/08/2022 9:47 EST [facility] Comment: Reference Range for Hep B Surface Ab, Qual: Unvaccinated: ??Negative Vaccinated: ??Positive Blood VENOUS BLOOD / Unknown Venipuncture / Unknown 03/07/2022 14:39 EST 03/07/2022 14:39 EST Nelson Correia MD CHEMISTRY & BLO OD GAS ORDERABLES [facility] [address] [place] [address] documented in this encounter Visit Diagnoses Diagnosis Screening examination for pulmonary tuberculosis- Primary Immunity status testing Antibody response examination documented in this encounter Care Teams Transmission Systems Operator Relationship Specialty Start Date End Date Unknown, Provider, PCP - General 11/06/16 documented as of this encounter
--- OUTSIDE RECORDS SUMMARY | 2023-11-15 04:26 | XMS_ITS | Encounter Summary ---
[place] [address] Care Team Providers Care Senior Procurement Specialist Name Role Phone Jennifer Suarez APRN Primary Care Provider [phone] Reason for Visit * Reason Onset Date Comments Disability Paperwork 11/15/2020 Encounter Details Date Type Department Care Team (Late st Contact Info) Description 11/15/2020 [place] [address] Tio Mayo MD [facility] [place] [address] Disability Paperwork Social History Tobacco Use Types [...] * Telephone Encounter - Sinai Padilla - 12/01/2020 11:25 AM EDT Completed by: June To provider for review/signature: SIGNED Faxed/Mailed/MY PORTAL/Pick-up Date: FAXED * Telephone Encounter - Sinai Padilla - 11/15/2020 2:44 PM EDT Date Received: 11/15/20 Insurance/Disability Company Name: [employer] Release on file/mailed: On file documented in this encounter Plan of Treatment Upcoming Encounters Date Type Department Care Team (Late st Contact Info) Description 12/04/2023 8:00 AM EDT Office [place] [address] Cyn Murphy, PT [facility] PHYSICAL MEDICINE & [place] [address] 12/04/2023 10:45 AM EDT Appointment XRay at [address] [place] [address] 12/04/2023 11:40 AM EDT Office [place] [address] Jennifer Stanley [employer] EXECUTIVE [facility] [place] [address] documented as of this encounter Visit Diagnoses Not on filedocumented in this encounter Care Teams Senior Procurement Specialist Relationship Specialty Start Date End Date Jennifer Suarez APRN [address] [place] [address] PCP - General Family Medicine 07/14/20 11/20/22 documented as of this encounter
--- OUTSIDE RECORDS SUMMARY | 2023-11-15 04:26 | XMS_ITS | Encounter Summary ---
Author Organization [facility] Address [facility] [place] [address] Care Team Providers Care Retail Sales Lead Name Role Phone Jennifer Suarez APRN Primary Care Provider [phone] Reason for Visit * Reason Comments Blurred Vision Encounter Details Date Type Department Care Team (Late st Contact Info) Description 08/10/2020 2:20 PM EDT Office [place] [address] Dayana Ahuja, OD [facility] [place] [address] Posterior vitreous detachment of left eye; Astigmatism of both eyes with presbyopia Social History Tobacco Use Types Packs/Day Years [...] as of this encounter Progress Notes * Dayana Ahuja, OD - 08/10/2020 2:20 PM EDT Encounter Diagnoses Name Primary? Posterior vitreous detachment of left eye ??? Astigmatism of both eyes with presbyopia Susan Whitney is a 50 y.o. with the following ophthalmic problems: Assessment and Plan: PVD OS. No retinal holes, tears, RD noted on 360 dilated & depressed fundus exam. - Discussed anatomy and evolving process of PVD & si/sx/risks of RD - RTC STAT with increase in floaters, flashes, curtains/shades, &/or VF loss. - F/U in 4-6 weeks for repeat DFE Refractive Error OU - Rx given today - Findings and concerns discussed with Susan and she expressed understanding. Eyeglass Final Rx Eyeglass Final Rx Sphere Cylinder [place] Dist VA Add Near VA Right -7.00 +0.50 145 20/20+2 +2.50 20/20 Left -8.00 +0.75 050 20/15-1 +2.50 20/20- Expiration Date: 08/11/2022 Pupillary Distance: 61 documented in this encounter Plan of Treatment Upcoming Encounters Date Type Department Care Team (Late st Contact Info) Description 12/04/2023 8:00 AM EDT Office [place] [address] Cyn Murphy, PT [facility] PHYSICAL MEDICINE & [place] [address] 12/04/2023 10:45 AM EDT Appointment XRay at [address] [place] [address] 12/04/2023 11:40 AM EDT Office [place] [address] Jennifer Stanley PRESS HELPER [facility] [place] [address] documented as of this encounter Visit Diagnoses Diagnosis Posterior vitreous detachment of left eye Vitreous degeneration Astigmatism of both eyes with presbyopia documented in this encounter Care Teams Retail Sales Lead Relationship Specialty Start Date End Date Jennifer Suarez APRN [address] [place] [address] PCP - General Family Medicine 07/14/20 11/20/22 documented as of this encounter
--- OUTSIDE RECORDS SUMMARY | 2023-11-15 04:26 | XMS_ITS | Encounter Summary ---
[place] [address] Care Team Providers Care Refractory Mixer Name Role Phone Jennifer Suarez APRN Primary Care Provider [phone] Reason for Visit * Reason Onset Date Comments Disability Paperwork 01/27/2021 Encounter Details Date Type Department Care Team (Late st Contact Info) Description 01/27/2021 [place] [address] Tio Mayo MD [facility] [place] [address] Disability Paperwork Social History Tobacco Use Types [...] * Telephone Encounter - Sinai Padilla - 02/02/2021 1:26 PM EST Faxed/Mailed/MY PORTAL/Pick-up Date: FAXED02/02/21 * Telephone Encounter - Sinai Padilla - 02/01/2021 1:45 PM EST Completed by: Sinai To provider for review/signature: Out for signature * Telephone Encounter - Sinai Padilla - 01/27/2021 2:58 PM EDT Date Received: 01/27/21 Insurance/Disability Company Name: [employer] Release on file/mailed: on file documented in this encounter Plan of Treatment Upcoming Encounters Date Type Department Care Team (Late st Contact Info) Description 12/04/2023 8:00 AM EDT Office [place] [address] Cyn Murphy, PT [facility] PHYSICAL MEDICINE & [place] [address] 12/04/2023 10:45 AM EDT Appointment XRay at [address] [place] [address] 12/04/2023 11:40 AM EDT Office [place] [address] Jennifer Stanley [employer] [facility] [place] [address] documented as of this encounter Visit Diagnoses Not on filedocumented in this encounter Care Teams Refractory Mixer Relationship Specialty Start Date End Date Jennifer Suarez APRN [address] [place] [address] PCP - General Family Medicine 07/14/20 11/20/22 documented as of this encounter
--- OUTSIDE RECORDS SUMMARY | 2023-11-15 04:26 | XMS_ITS | Encounter Summary ---
Author Organization [facility] Address [address] [place] [address] Care Team Providers Care Business Law Professor Name Role Phone Unknown, Provider Primary Care Provider Encounter Details Date Type Department Care Team (Late st Contact Info) Description 10/06/2022 Lab Requisition [facility] Pathology & Laboratory Medicine - [address] [address] Outr Resulting Lab, Provider Social History Tobacco Use Types Packs/Day Years Used Date Smoking Tobacco: Never Assessed Sex and Gender Information Value Date Recorded Sex Assigned at Not on file Gender Identity Female 03/07/2022 14:17 EST Sexual Orientation Not on file documented as of this encounter Plan of Treatment Not on file documented as of this encounter Procedures Procedure Name Priority Date/Time Associated Diagnosis Comments HEPATITIS B SURFACE ANTIBODY Routine 10/06/2022 17:06 EDT documented in this encounter Results * HEPATITIS B SURFACE ANTIBODY (10/06/2022 17:06 EDT) Hep B Surface Ab, Quantitative 860.5 See Note mIU/mL 10/09/2022 10:51 EDT [facility] Comment: Reference Range for Hep B Surface Ab, Quant: Positive: >= 10.0 mIU/mL Negative: ??< 10.0 mIU/mL Patient is presumed to be immune to infection with Hepatitis B Virus. Hep B Surface Ab, Qualitative Positive See Note 10/09/2022 10:51 EDT [facility] Comment: Reference Range for Hep B Surface Ab, Qual: Unvaccinated: ??Negative Vaccinated: ??Positive Blood VENOUS BLOOD / Unknown 10/06/2022 17:06 EDT 10/08/2022 15:38 EDT Provider Outr Resulting Lab CHEMISTRY & BLOOD GAS ORDERABLES [facility] [address] [place] [address] documented in this encounter Visit Diagnoses Not on filedocumented in this encounter Care Teams Business Law Professor Relationship Specialty Start Date End Date Unknown, Provider, PCP - General 11/06/16 documented as of this encounter
[2023-11-15 15:01] LABS: Vitamin D 25 Total 24.1 ng/mL (30-100)
== END 2023-11-15 04:23 | disposition home or self-care (01) ==
LOC: LBO 04:22
PROVIDERS: PCP Family Medicine; Visit Provider Family Medicine
DX: R79.89 Other specified abnormal findings of blood chemistry (principal)
CPT/HCPCS: 36415; 82306

== ENCOUNTER 2024-01-08 08:57 | Outpatient (CLI) | payer BC, SELFPAY ==
[2024-01-08 13:15] LABS: ALT 19 U/L (14-59); AST 16 U/L (15-37); Albumin 3.8 g/dL (3.4-5.0); Alkaline Phosphatase 125 U/L (46-116); Bilirubin, Total 1.12 mg/dL (0.2-1.0); Calculated LDL 118 mg/dL (<100); Cholesterol 197 mg/dL (<200); HDL Cholesterol 60 mg/dL (40-60); Total Protein 7.5 g/dL (6.4-8.2); Triglyceride 96 mg/dL (<150)
[2024-01-08 16:27] LABS: Bilirubin, Direct 0.2 mg/dL (0.0-0.2)
[2024-01-09 09:03] LABS: Alpha 1 Antitrypsin,Serum 78 mg/dL (90-200)
== END 2024-01-08 08:58 | disposition home or self-care (01) ==
LOC: LOS 08:58
PROVIDERS: PCP Family Medicine; Referring Provider Family Medicine; Visit Provider Family Medicine
DX: G72.89 Other specified myopathies (principal); Z83.49 Family history of other endocrine, nutritional and metabolic diseases; E78.5 Hyperlipidemia, unspecified; Z12.39 Encounter for other screening for malignant neoplasm of breast
CPT/HCPCS: 36415; 80061; 80076; 82103

== ENCOUNTER 2024-01-08 15:40 | Outpatient (REF) | payer BC, SELFPAY ==
--- NOTE | 2024-01-08 09:00 | PAPFT_PTH ---
PATIENT: Susan Whitney LOC: [facility] U#:[id number] AGE/SX: 53/F ROOM: RE01/08/[address]: Ramiro Melo MD : 1970 BED: DIS: 01/08/2024 SPEC #: [id number] RECD: 01/08/24 18:09 STATUS: PATRICK REQ #: [id number] ANDREI: 01/08/24 09:[address]: Ramiro Melo DEPT: [facility] Cytology RECD BY: Mitra Soares Tissues: 1 - CX/ENDOCX FOR PAP SMEARS Procedures: PAP THIN PREP/UVM Screening HPV DNA PROBE Comments: [id number] (HPV 16 & 18/45)
--- OUTSIDE RECORDS SUMMARY | 2024-01-08 15:42 | XMS_ITS | Encounter Summary ---
Author Organization [facility] Address [facility] [place] [address] Care Team Providers Care Audiology Director Name Role Phone Ramiro Melo MD Primary Care Provider [phone] Encounter Details Date Type Department Care Team (Late st Contact Info) Description 12/04/2023 Orders Only [place] [address] Cyn Murphy, PT [facility] PHYSICAL MEDICINE & [place] [address] Leg swelling Social History Tobacco Use Types Packs/Day [...] as of this encounter Visit Diagnoses Diagnosis Leg swelling Swelling of limb documented in this encounter Care Teams Audiology Director Relationship Specialty Start Date End Date Ramiro Melo MD [address] [place] [address] PCP - General Family Medicine 11/21/22 documented as of this encounter
--- OUTSIDE RECORDS SUMMARY | 2024-01-08 15:42 | XMS_ITS | Encounter Summary ---
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 Mayo) Social History Tobacco Use Types Packs/Day Years [...] as of this encounter Progress Notes * Jennifer Stanley APRN - 11/29/2023 4:25 PM EDT Based on my personal review of the patients chart, medical history, available documents and currentimaging it is my assessment the new images will need to be obtained for appropriate clinical decision making. documented in this encounter Plan of Treatment Not on file documented as of this encounter Results * XR Ankle Min 3 views Left (Generic) (12/04/2023 10:37 AM EDT) WORKSTATION ID [id number] RAD Anatomical Region Laterality Modality Ankle Left Digital Radiogra phy Impressions 12/05/2023 9:05 AM EDT Uncomplicated total ankle arthroplasty. Thank you for letting us participate in the care of this patient. ??If you are a health care provider and have any questions regarding this report, please contact the number below. ??For patients who have questions please contact the health childcare director that requested your imaging first. ? Electronically signed by: Yumiko Ward MD, [facility] ([phone]), at 12/05/2023 9:05 AM Narrative 12/05/2023 9:05 AM EDT EXAMINATION: XR ANKLE MIN 3 VIEWS LEFT (GENERIC) CLINICAL HISTORY: S/P LEFT TAA, ? change from previous xray M21.6X2, Other acquired deformities of left foot (as entered by ordering provider in the order requisition) TECHNIQUE: Weightbearing AP, oblique, lateral views of the left ankle. COMPARISON: Right ankle radiograph November 21, 2022 FINDINGS: Status post total ankle arthroplasty. ??No periprosthetic fracture or bone resorption. ??Normal alignment of the tibiotalar joint. There is bony fusion of the subtalar joint. There are unchanged bone brent in the calcaneus. No tibiotalar joint effusion. No focal soft tissue swelling. Unchanged plantar calcaneal and Achilles enthesophytes. Procedure Note Yumiko Ward MD - 12/05/2023 EXAMINATION: XR ANKLE MIN 3 VIEWS LEFT (GENERIC) CLINICAL HISTORY: S/P LEFT TAA, ? change from previous xray M21.6X2, Other acquired deformities of left foot (as entered by ordering provider in the order requisition) TECHNIQUE: Weightbearing AP, oblique, lateral views of the left ankle. COMPARISON: Right ankle radiograph November 21, 2022 FINDINGS: Status post total ankle arthroplasty. No periprosthetic fracture orbone resorption. Normal alignment of the tibiotalar joint. There is bony fusion of the subtalar joint. There are unchanged bone brent in the calcaneus. No tibiotalar joint effusion. No focal soft tissue swelling. Unchanged plantar calcaneal and Achilles enthesophytes. IMPRESSION Uncomplicated total ankle arthroplasty. Thank you for letting us participate in the care of this patient. If youare a health care provider and have any questions regarding this report,please contact the number below. For patients who have questions please contactthe health childcare director that requested your imaging first. 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 Mayo) documented in this encounter Care Teams Diesel Inspector Relationship Specialty Start Date End Date Ramiro Melo MD [address] [place] [address] PCP - General Family Medicine 11/21/22 documented as of this encounter
--- OUTSIDE RECORDS SUMMARY | 2024-01-08 15:42 | XMS_ITS | Encounter Summary ---
Author Organization [facility] Address [facility] [place] [address] Care Team Providers Care Farm Owner Operator Name Role Phone Ramiro Melo MD Primary Care Provider [phone] Reason for Visit * Physical Therapy (Routine) - Authorized Specialty Diagnoses / Procedures Referred By Chrei silverman Referred To Contact Physical Therapy Diagnoses Acquired left hindfoot varus Mercedez Foley MD [facility] [place] [address] Physical Therapy, Jarret Bertrand [address] [place] [id number] Referral ID Status Reason Start Date Expiration Date Visits Requested Visits Authorized [id number] Authorized Evaluate and Treat 07/25/2023 01/21/2024 20 20 Encounter Details Date Type Department Care Team (Late st Contact Info) Description 12/04/2023 8:00 AM EDT Office [place] [address] Marsha Murphy, PT [facility] PHYSICAL MEDICINE & [place] [address] Secondary lymphedema Social History Tobacco Use Types [...] Miscellaneous Notes * Treatment - Therapy - Marsha Murphy, PT - 12/04/2023 8:00 AM EDT Images from the original note [...] on. Had bought compression knee highs at [employer] 12-15 mmhg, They wrinkle and cut in [...] for primary subtalar osteoarthritis in 2016 in [place] followed byleft hindfoot varus s/p lateral closing [...] care : lives with [facility], in [place], [place]. 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 [...] by patient. S: Wears wraps most days. Has been wearing Foot and ankle wraps more consistently. Received her pump and is using it 3-5/days week (sometimes too tired after a shift to get the pump out and put it on. Pump feels great. Legs don't feel as heavy after use. Would like to try custom flat knit knee highs for phase 2 of decongestive therapy (as I have recommended). O: 5) LE circumferences (cm) Right 08/26/21 Left 08/26/21 Right 11/21/22 Left 11/21/22 Right 04/17/23 Left 04/17/23 Right 07/31/23 Left 07/31/23 Right 12/04/23 Left 12/04/23 mtp s 24.3 24.0 24.5 24.3 24.8 24.3 25.0 24.0 24.5 24.0 Mid foot 23.5 24.0 24.0 23.5 24.0 23.5 24.2 23.8 24.0 23.7 Y 33.2 35.5 35.2 37.0 34.5 35.4 35.5 36.7 35.0 36.0 Ankle 29.0 30.2 29.5 31.0 29.0 30.0 28.6 31.0 28.0 29.0 Calf 49.8 51.5 51.0 52.0 48.5 50.5 50.5 52.0 49.5 50.8 D 46.6 49.2 48.0 51.0 46.0 48.0 47.5 49.0 47.8 48.5 Knee crease 46.2 47.5 Top patella +5 59.0 61.8 +12 69.0 69.5 +22 78.5 78.0 Floor-D length 41.0 A-D length 33.[address] mtp-heel 17.5 17.5 Hips- inches 56 Waist- inches 46 Notes: Today Measurements retaken Detailed measurements for custom flat knit also taken. Decided on Medi lindsay Moore, closed toe, 20-30 mmhg. Will order through [employer]. Pt will need to get estimate of out of pocket cost before committing to order. She has met her deductible but not mas out of pocket. Pt wearing compression wraps she received in [...] to self bandage and video sent via [facility] Compression bandage precautions: pt advised to wear [...] has made some gains with compression garments and is ready for maintenance phase. I recommend flat knit custom knee highs 20-30 mmhg Medi Cosy. Circumferences 0.5 -2 cm decreased today. The patient's rehabilitation potential is good GOALS: Therapy Short Term Goals 6 weeks 1. Obtain well fitting compression garments. MET 2. independent in self care. 3. Evaluate for pump MET 07/31/23 Therapy Ship'S Captain Goals 8 weeks 1. maintain reduction in swelling. 2. Fit with compression stockings after surgery (after post op swelling reduced). Recommend flat knit, custom knee highs PLAN: Frequency and duration: no FU scheduled at this time but pt will call and schedule FU if she decides to get custom flat knit. Will schedule with 30 days of receiving them so we can assess fit and order redo if necessary. Treatment: compression bandaging Exercise teaching self care garment fitting The plan has been discussed with the patient and she has agreed with it. 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 Mayo) Ordered: 07/25/2023 documented as of this encounter Visit Diagnoses Diagnosis Secondary lymphedema Other lymphedema documented in this encounter Care Teams Farm Owner Operator Relationship Specialty Start Date End Date Ramiro Melo MD [address] [facility] [address] [place] [address] PCP - General Family Medicine 11/21/22 documented as of this encounter
--- OUTSIDE RECORDS SUMMARY | 2024-01-08 15:42 | XMS_ITS | Encounter Summary ---
Author Organization [facility] Address [facility] [address] Care Team Providers Care Stain Applicator Name Role Phone Ramiro Melo MD Primary Care Provider [phone] Reason for Visit * Reason Comments Follow-up L TAA DOS 11/21/21 (C OE) Encounter Details Date Type Department Care Team (Late st Contact Info) Description 12/04/2023 11:40 AM EDT Office [place] [address] Jennifer Stanley, [facility] [place] [address] History of arthroplasty of left ankle Social [...] - Inhaled Oxygen Concentration - - Weight 122 kg (269 lb) 12/04/2023 11:11 AM EDT Height 165.1 cm (5' 5) 12/04/2023 11:11 AM EDT Body Mass Index 44.76 12/04/2023 11:11 AM EDT documented in this encounter Patient Instructions * Patient Instructions* Jennifer Stanley APRN - 12/04/2023 11:40 AM EDT Try voltaren gel PRN. Cool packs and acetomenophen prn for pain no greater than 3 grams per day. Peroneal strengthening and proprioceptive work Consider soft sleeve for work PT for lymphadema management. If things do not settle consider surgical options for mid foot arthritis. documented in this encounter Progress Notes * Jennifer Stanley APRN - 12/04/2023 11:40 AM EDT Chief complaint: routine rotary 2 year recheck Pertinent Surgical History: LEFT ankle TAA. DOS: 11/21/2021. Dr. Mayo with prior hx of hind foot lateral wedge osteotomy 2020. Dr. Mayo Problem List Items Addressed This Visit History of arthroplasty of left ankle History of present illness: Susan Whitney is a 53 y.o. year-old female here in follow up a few years post op. She is doing ok. There is some chronic pain over the peroneals. Also dealing with mid foot arthropathy with a provider closer to home. Chronic lymphadema management with PT here at . Newcompression stockings ordered today. She does admit to feeling better than before surgery. No new in juries or falls. No infections to report. She is able to work some sitting and standing. Has well fitting [employer] sneakers. 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 Mayo) 12/01/2020 Medications: ibuprofen (Advil) 600 mg Tablet acetaminophen (Tylenol) 500 mg Tablet cholecalciferol, Vitamin D3, 50 mcg (2,000 unit) Capsule albuteroL 90 mcg/actuation HFA Aerosol Inhaler multivitamin Capsule Allergies: Allergies Allergen Reactions Latex Other reaction(s): Skin Rash, itchy tongue, respiratory distress Phenergan [Promethazine] Shortness Of Breath Weezing/ chest tightness Promethazine Hcl Other reaction(s): chest tightness/SOB Adhesive Rash Other reaction(s): Skin Rash Codeine Low blood pressure Hydrocodone Hives Meperidine Hives Nsaids (Non-Steroidal Anti-Inflammatory Drug) Other reaction(s): d/t vertical sleeve gastectomy Other reaction(s): d/t vertical sleeve gastectomy Oxycodone Hives Percocet [Oxycodone-Acetaminophen] Hives Respiratory distress, tongue swelling/itchiness Vicodin [Hydrocodone-Acetaminophen] Hives Respiratory distress, swollen/itchy tongue Social history: Social History Tobacco Use Smoking status: Never Smokeless tobacco: Never Substance Use Topics Alcohol use: Yes Comment: Rarely drink. At most Maybe 1 shot or 1 wine cooler a month Review of systems: No chest pain or shortness of breath No fevers, night sweats or chills Vital signs: Temp: -- Vitals: 12/04/23 1111 Weight: 122 kg (269 lb) Height: 165.1 cm (5' 5) Body mass index is 44.76 kg/m??. Physical Exam: 53 year old Female in NAD LEFT ankle exam: Gait: mild antalgia with start up Shoe wear: Snapciouseashoply Assistive Devices: none Inspection: hind foot alignment is neutral. Surgical incisions are healed without complication. There is no erythema, edema, tenderness or drainage. There is no evidence of infection. Palpation: mild TTP over the peroneals. No snapping or subluxation. Eversion strength 5-/5 ROM: DF: ~ 10 degrees. PF: ~ 25 degrees. Strength: 5-/5 eversion strength. Otherwise 5/5 in all other planes of motion Neurovascular Exam: Foot is grossly sensate and well perfused, DP and PT 2+ to palpation. Sensationintact to 1st webspace, medial and lateral sole and dorsum. Imaging: Personal review and interpretation of the patient's imaging reveals: Updated LEFT ankle x-ray reviewed image by image in the office today reveals a well seated LEFT ankle TAA with no obvious complications with hind foot calcaneal osteotomy Assessment: 53 y.o. year-old female who is a few years s/p LEFT ankle TAA. She is doing reasonably well with some chronic lateral foot peroneal pain. Functional gait pattern is mild antalgia. Plain radiographs with no obvious complications. Plan: I reviewed my findings in the office today with both x-rays and clinical exam. At this time, emphasized the importance of working on peroneal strengthening and proprioceptive work. Consider topical voltaren gel for peroneal pain. If things are not settling consider MSK US to assess for subluxa tion. Mid foot arthropathy consider surgical consult if things are not settling. Pt agrees, questions solicited/answered, will return as scheduled and as needed for concerns or questions. Pt understands they may also call us prn for above. Follow up: 3 years routine rotary f/u LEFT ankle TAA with x=rays. This plan was discussed with the patient and they are in agreement. All of the patient's questions were answered. In this encounter, I performed the following: Review of external notes?: no Review of test results?: yes Interpretation of tests?: yes Discussion of management and test interpretation?: yes Decision regarding minor or major surgery?: no Risk factors for surgery?: no documented in this encounter Plan of Treatment Not on file documented as of this encounter Visit Diagnoses Diagnosis History of arthroplasty of left ankle documented in this encounter Care Teams Stain Applicator Relationship Specialty Start Date End Date Ramiro Melo MD [address] [place] [address] PCP - General Family Medicine 11/21/22 documented as of this encounter
--- OUTSIDE RECORDS SUMMARY | 2024-01-08 15:42 | XMS_ITS | Encounter Summary ---
Author Organization [facility] [place] [address] Care Team Providers Care Tetryl Screen Operator Name Role Phone Ramiro Melo MD Primary Care Provider [phone] Encounter Details Date Type Department Care Team (Latest Contact Info) Description 12/02/2023 Travel Social History Tobacco Use Types Packs/Day [...] on filedocumented in this encounter Care Teams Tetryl Screen Operator Relationship Specialty Start Date End Date Ramiro Melo MD [address] [place] [address] PCP - General Family Medicine 11/21/22 documented as of this encounter
--- OUTSIDE RECORDS SUMMARY | 2024-01-08 15:42 | XMS_ITS | Encounter Summary ---
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 Mayo) Discharge Disposition: Home Social History Tobacco Use [...] Sig Dispensed Refills Start Date End Date meloxicam (Mobic) 7.5 mg tablet Take 7.5 mg by mouth daily. ibuprofen (Advil) 600 mg Tablet Take 1 [...] Capsule Take 2,000 Units by mouth daily. 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 Mayo) documented in this encounter Results * XR Ankle Min 3 views Left (Generic) (12/04/2023 10:37 AM EDT) [employer] WORKSTATION ID [id number] RAD Anatomical Region Laterality Modality Ankle Left Digital Radiogra phy Impressions 12/05/2023 9:05 AM EDT Uncomplicated total ankle arthroplasty. Thank you for letting us participate in the care of this patient. ??If you are a health care provider and have any questions regarding this report, please contact the number below. ??For patients who have questions please contact the health patient care director that requested your imaging first. ? Narrative 12/05/2023 9:05 AM EDT EXAMINATION: XR [...] patients who have questions please contactthe health patient care director that requested your imaging first. 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 Mayo) documented in this encounter Care Teams Waste Paper Hammermill Operator Relationship Specialty Start Date End Date Ramiro Melo MD [address] [place] [address] PCP - General Family Medicine 11/21/22 documented as of this encounter
--- OUTSIDE RECORDS SUMMARY | 2024-01-08 15:42 | XMS_ITS | Clinical Summary ---
Author Organization [facility] Address [facility] [address] Care Team Providers Care Fermenting Cellar Dropper Name Role Phone Ramiro Melo MD Primary Care Provider +1 [phone] Allergies Active Allergy Reactions Criticality Noted Date [...] 4 TO 6 HOURS NEEDED 06/10/2020 Active cholecalciferol, Vitamin D3, 50 mcg (2,000 unit) Capsule Take 2,000 Units by mouth daily. 0646-3563 units prescribed Active acetaminophen (Tylenol) 500 mg [...] post-op surgical pain). 60 tablet 02/21/2022 Active Additional Information Patient not taking.Reported on 12/04/2023 meloxicam (Mobic) 7.5 mg tablet Take 7.5 mg by mouth daily. 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 Mayo) from Last 3 Months Immunizations Name Administration Dates Next Due Covid-19 Monovalent (Merna/J&J) (6866-0415) Tdap (Adacel, Boostrix) 05/09/2016 Family History Medical History Relation Comments [...] EDT Inhaled Oxygen Concentration - - Weight 122 kg (269 lb) 12/04/2023 11:11 AM EDT Height 165.1 cm (5' 5) 12/04/2023 11:11 AM EDT Body Mass Index 44.76 12/04/2023 11:11 AM EDT Plan of Treatment Health Maintenance Due Date [...] 2008 Zoster vaccine (1 of 2) 2018 Advance Directive 2023 Covid-19 Vaccine (2 - season) 2023 Influenza (Flu) vaccine (1 o f 1 - Influenza standard series) 11/25/2023 Diabetes Screening (HgbA1C or Glucose) 10/25/2024 Tetanus/Diphtheria/Pertussis Vaccines (2 - Td or Tdap) 05/09/2026 05/09/2016 Medical Devices Implanted Type Area Beauty Culture Teacher Device Identifier Shelf Expiration Date Model / Serial / Lot Graft Bone Filler [id number] Chips Canc Preservon Readigraft ([id number]) (Autoreq) - [id number] Implanted:Qty: 1 on 12/01/[facility] by [facility] IMPL[facility] Left: Ankle [facility] 02/07/2025 [id number] / [id number] / Staple [id number] Comp Nitinol Speed Titan ([id number]) (Autoreq) - [id number] Implanted:Qty: 1 on 12/01/2020 by [facility]io [facility] MD [facility] IMPLANTS Left: Ankle [facility] 02/04/2023 [id number] / / [id number] Staple [id number] Comp Nitinol Speed Titan ([id number]) (Autoreq) - [id number] Implanted:Qty: 1 on 12/01/2020 by Tio [facility] MD [facility] IMPLANTS Left: Ankle [facility] 05/09/2023 [id number] / / [id number] Component Talar Ankle Joint Sz 2 Infinity Adaptis ([id number]) - [id number] Implanted:Qty: 1 on 11/21/2021 by Tio [facility] MD [facility] IMPLANTS Left: Ankle [facility] 07/22/2028 [id number] / / [id number] Infinity Adaptis Tibial Tray Size 3 Material [id number] Implanted:Qty: 1 on 11/21/2021 by Tio [facility] MD [facility] Left: Ankle 09/22/2029 [id number] / / [id number] Infinity Everlast Cross-Linked Poly Insert Size 2+ H:8mm Implanted:Qty: 1 on 11/21/2021 by Tio [facility] MD [facility] Left: Ankle 10/06/2027 [id number] / / [id number] Explanted Type Area Beauty Culture Teacher Device Identifier Shelf Expiration Date Model / Serial / Lot K Wire Fix [id number] Trocar Point Threaded Bth End Ss ([id number]) - [id number] Explanted:Qty : 1 on 12/01/2020 by Tio [facility] MD [facility] IMPLANTS Left: Ankle [employer] MICRO[employer]RE [id number] S / / Pin Fix 7/64x9in Trocar Point Sgl End Ss Rolo ([id number]) - [id number] Explanted:Qty : 1 on 12/01/2020 by Tio [facility] MD [facility] IMPLANTS Left: Ankle [employer] - MICRO[employer]RE [id number] S / / Pin Fix 5/32x9in Trocar Point Sgl End Ss Rolo ([id number]) - [id number] Explanted:Qty : 1 on 12/01/2020 by Tio [facility] MD [facility] IMPLANTS Left: Ankle [employer] - MICRO[employer]RE [id number] / / Procedures Procedure Name Priority Date/Time Associated Diagnosis Comments XR ANKLE MIN 3 VIEWS LEFT Routine 12/04/2023 10:37 AM EDT 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 Mayo) HC VENIPUNCTURE Routine 10/25/2021 2:51 PM EDT Preop examination Arthritis of left ankle History of gastrectomy from Last 3 Months or Most Recently Relevant to Health Maintenance Results * XR Ankle Min 3 views Left (Generic) (12/04/2023 10:37 AM EDT) [employer]an[employer] Signature WORKSTATION ID [id number] RAD Anatomical Region Laterality Modality Ankle Left Digital Radiogra phy Impressions 12/05/2023 9:05 AM EDT Uncomplicated total ankle arthroplasty. Thank you for letting us participate in the care of this patient. ??If you are a health care provider and have any questions regarding this report, please contact the number below. ??For patients who have questions please contact the health care team assistant that requested your imaging first. ? [...] who have questions please contactthe health care team assistant that requested your imaging first. Jennifer Stanley FINANCIAL FOUNDATIONS ASSOCIATE IMG DX ORDERABLES * (ABNORMAL) Basic Metabolic Panel (non-fasting) (10/25/2021 [...] CHEMISTRY ORDERAB LES [facility] [place] [address] from Last 3 Months or Most Recently Relevant to Health Maintenance Advance Directives Documents on File Type Date Recorded Patient Manager Client Expl anation Personal Manager Client 11/30/2020 2:39 PM * Attempt Cardiopulmonary Resuscitation - Inpatient (Latest Code Status on File) Date Activated Date Inactivated Comments 11/21/2021 10:08 AM 11/22/2021 5:30 PM Question Answer Comments Code Status decision made by: Patient * Attempt Cardiopulmonary Resuscitation - Inpatient Date Activated Date Inactivated Comments 12/01/2020 7:22 AM 12/01/2020 1:51 PM Question Answer Comments Code Status decision made by: Patient Care Teams Fermenting Cellar Dropper Relationship Specialty Start Date End Date Ramiro Melo MD [address] [place] [address] PCP - General Family Medicine 11/21/22
--- OUTSIDE RECORDS SUMMARY | 2024-01-08 15:42 | XMS_ITS | Encounter Summary ---
Author Organization [facility] [place] [address] Care Team Providers Care Languages And Literature Instructor Name Role Phone Ramiro Melo MD Primary Care Provider [phone] Encounter Details Date Type Department Care Team (Latest Contact Info) Description 12/04/2023 Travel Social History Tobacco Use Types Packs/Day [...] on filedocumented in this encounter Care Teams Languages And Literature Instructor Relationship Specialty Start Date End Date Ramiro Melo MD [address] [place] [address] PCP - General Family Medicine 11/21/22 documented as of this encounter
--- OUTSIDE RECORDS SUMMARY | 2024-01-08 15:43 | XMS_ITS | Encounter Summary ---
[place] [address] Care Team Providers Care Jumpbasting Collar Baster Name Role Phone Jennifer Suarez APRN Primary Care Provider [phone] Encounter Details Date Type Department Care Team (Late st Contact Info) Description 09/12/2021 Telephone [place] [address] Sandra Weeks Social History Tobacco Use Types [...] to Brianna @ [employer] @ [phone] for ARSALANPT jaz successful confirmation of 5 pages including cover page documented in this encounter Plan of Treatment Not on file documented as of this encounter Visit Diagnoses Not on filedocumented in this encounter Care Teams Jumpbasting Collar Baster Relationship Specialty Start Date End Date Jennifer Suarez APRN [address] [place] [address] PCP - General Family Medicine 07/14/20 11/20/22 documented as of this encounter
--- OUTSIDE RECORDS SUMMARY | 2024-01-08 15:43 | XMS_ITS | Encounter Summary ---
Author Organization [facility] [place] [address] Care Team Providers Care It Infrastructure Specialist Name Role Phone Jennifer Suarez APRN Primary Care Provider [phone] Encounter Details Date Type Department Care Team [...] on filedocumented in this encounter Care Teams It Infrastructure Specialist Relationship Specialty Start Date End Date Jennifer Suarez APRN [address] [place] [place] [address] PCP - General Family Medicine 07/14/20 11/20/22 documented as of this encounter
--- OUTSIDE RECORDS SUMMARY | 2024-01-08 15:43 | XMS_ITS | Encounter Summary ---
Author Organization [facility] [place] [address] Care Team Providers Care Crts Name Role Phone Jennifer Suarez APRN Primary Care Provider [phone] Encounter Details Date Type Department Care Team (Late st Contact Info) Description 09/07/2021 Orders [place] [address] Tio Mayo MD [facility] [place] [address] Edema of left lower leg (Primary Dx); [...] Gael documented in this encounter Care Teams Crts Relationship Specialty Start Date End Date Jennifer Suarez APRN [address] [place], [place] [id number] PCP - General Family Medicine 07/14/20 11/20/22 documented as of this encounter
--- OUTSIDE RECORDS SUMMARY | 2024-01-08 15:43 | XMS_ITS | Encounter Summary ---
Author Organization [facility] [place] [address] Care Team Providers Care Surveying Technician Name Role Phone Ramiro Melo MD Primary Care Provider [phone] Encounter Details Date Type Department Care Team [...] on filedocumented in this encounter Care Teams Surveying Technician Relationship Specialty Start Date End Date Ramiro Melo MD [address] [place] [address] PCP - General Family Medicine 11/21/22 documented as of this encounter
--- OUTSIDE RECORDS SUMMARY | 2024-01-08 15:43 | XMS_ITS | Encounter Summary ---
Author Organization [facility] Address [facility] [place] [address] Care Team Providers Care Obstetrician/Gynecologist Name Role Phone Jennifer Suarez APRN Primary Care Provider [phone] Reason for Visit * Reason Onset Date Comments Disability Paperwork 11/30/2021 Encounter Details Date Type Department Care Team (Late st Contact Info) Description 11/30/2021 Telephone [place] [address] Tio Mayo MD [facility] [place] [address] Disability Paperwork Social History Tobacco Use Types [...] on filedocumented in this encounter Care Teams Obstetrician/Gynecologist Relationship Specialty Start Date End Date Jennifer Suarez, [place] [address] [place] [address] PCP - General Family Medicine 07/14/20 11/20/22 documented as of this encounter
--- OUTSIDE RECORDS SUMMARY | 2024-01-08 15:43 | XMS_ITS | Encounter Summary ---
[place] [address] Care Team Providers Care Well Driller Name Role Phone Jennifer Suarez APRN Primary Care Provider [phone] Encounter Details Date Type Department Care Team (Late st Contact Info) Description 09/23/2021 Telephone [place] [id number] Sandra Weeks Social History Tobacco Use Types [...] - 09/23/2021 3:17 PM EDT Faxed to [employer] @ [phone] for ARSALANPT. Received successful confirmation of 11 pages including cover page documented in this encounter Plan of Treatment Not on file documented as of this encounter Visit Diagnoses Not on filedocumented in this encounter Care Teams Well Driller Relationship Specialty Start Date End Date Jennifer Suarez APRN [address] [place] [address] PCP - General Family Medicine 07/14/20 11/20/22 documented as of this encounter
--- OUTSIDE RECORDS SUMMARY | 2024-01-08 15:43 | XMS_ITS | Encounter Summary ---
Author Organization [facility] [place] [address] Care Team Providers Care Foster Care Social Worker Name Role Phone Jennifer Suarez APRN Primary Care Provider [phone] Reason for Visit * Auth/Cert Specialty Diagnoses / Procedures Referred By Cheri silverman Referred To Contact Diagnoses Varus deformity, not elsewhere classified, left ankle Primary osteoarthritis, left ankle and foot Left ankle arthritis Procedures PRO ARTHROPLASTY ANKLE WITH IMPLANT TOTAL ANKLE ARTHROPLASTY (WRVU 14.42) Tio Covarrubias MD [facility] [place] [address] [place] Referral ID Status Reason Start Date Expiration Date Visits Re quested Visits Authorized [id number] 1 1 Encounter Details Date Type Department Care Team (Late st Contact Info) Description 11/21/2021 7:30 AM EDT - 11/21/2021 11:13 AM EDT Surgery [place] [address] Tio Covarrubias MD [facility] [place] [address] TOTAL ANKLE ARTHROPLASTY (WRVU 14.42) Social History [...] this encounter Discharge Summaries * Kat Mo, DEODORIZER OPERATOR - 11/21/2021 4:41 PM EDT Discharge Summary Patient Name: Susan Whitney Patient Age: 51 y.o. Language: Zambian Race: White Ethnicity: Not nor Admit date: 11/21/2021 Discharge date and time: 11/22/2021 Attending Physician: Tio Covarrubias MD Discharge Physician: Tio Covarrubias MD Follow-up Recommendations for Providers: See discharge instructions for additional details. Future Appointments Date Time Provider Department Center 12/06/2021 11:[address] [facility] DX ROOM [address] [facility] Rad 12/06/2021 11:30 AM Karey De PA [facility] Inpatient Provider Contact Information: Tio Covarrubias MD Orthopedics: [phone] After hours and weekends, call [facility] Electronic Controls Repairer Supervisor, , and have the Orthopedic resident paged. Discharge Diagnoses (Hospital Problems) and Secondary Diagnoses (Chronic Problems): Active Hospital Problems Diagnosis ??? 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 Covarrubias) ??? History of [...] Hospitalization: Immunization History Administered Date(s) Administered ??? Xyleme Covid-19 Vaccine 01/07/2021 ??? Tdap Vaccine 05/09/2016 [...] Cap Take 2,000 Units by mouth daily. 5532-8866 units prescribed 2,000 Units Refills: 0 gabapentin [...] as much as possible. Call your doctor ([phone]) if you develop: 1. Fever greater than 100.5 2. Severe nausea or vomiting 3. Increasing pain that is not controlled by pain medications 4. Increasing redness, swelling, or drainage from incisions 5. Change in sensation FOLLOW-UP APPOINTMENTS: 1. You will have follow-up appointments at [facility] as indicated below in Future Appointment and Orders. 2. You will need to have x-rays prior to your follow-up appointment listed below. Please come to Radiology, desk , 1 hour BEFORE that appointment for these x-rays. Future Appointments Date Time Provider Department Center 12/06/2021 11:[address] [facility] DX ROOM [address] [facility] Rad 12/06/2021 11:30 AM Karey De PA [facility]TH [facility]C [facility] If you have questions or concerns: Sunday through Sunday, 8 AM - 5 PM, please call Dr. Tio Covarrubias MD's office at . If it is after 5 PM, the weekend, or holidays, please call and ask to speak with theOrthopedic resident on-call. General Instructions None Future Appointments and Orders Future Appointments and Orders Future Appointments Provider Department Dept Phone 12/06/2021 11:[address] [facility] DX ROOM 2 XRay at [facility] Arrive at: Electromechanical Assembly Technician Area [phone] Please go to Electromechanical Assembly Technician Area ([facility]). 12/06/2021 11:30 AM Karey De PA Orthopaedics at [facility] Arrive at: Electromechanical Assembly Technician Area [phone] Primary Care Provider: Jennifer Suarez APRN [phone] Discharge References/Attachments None documented in this encounter [...] as much as possible. Call your doctor ([phone]) if you develop: Fever greater than 100.5 Severe nausea or vomiting Increasing pain that is not controlled by pain medications Increasing redness, swelling, or drainage from incisions Change in sensation FOLLOW-UP APPOINTMENTS: 1. You will have follow-up appointments at [facility] as indicated below in Future Appointment and Orders. 2. You will need to have x-rays prior to your follow-up appointment listed below. Please come to Radiology, desk 3T, 1 hour BEFORE that appointment for these x-rays. Future Appointments Date Time Provider Department Center 12/06/2021 11:[address] [facility] DX ROOM [address] [facility] Rad 12/06/2021 11:30 AM Karey De PA [facility]TH 3C [facility] If you have questions or concerns: Sunday [...] Capsule Take 2,000 Units by mouth daily. 9609-7796 units prescribed albuteroL 90 mcg/actuation HFA Aerosol Inhaler INHALE ONE TO TWO PUFFS BY MOUTH EVERY 4 TO 6 HOURS NEEDED 06/10/2020 aspirin EC 81 mg Tablet, Delayed Release [...] Take by mouth as needed. 12/25/2019 11/21/2022 multivitamin Capsule Take 1 capsule by mouth daily. 12/04/2023 melatonin 1 mg Tablet Take by mouth [...] Hannah MD PGY-4 Anesthesiology Regional Block Team #[id number] * Anibal Miles RN - 11/22/2021 3:[address] [facility] Short Stay Unit Discharge Note All [...] SpO2 71 bpm SpO2 98 % Prasanna Perez OT Pager: [phone] * Nika Lares, PT - 11/22/2021 12:14 [...] pac???s as noted on holter 01/2020 at [facility] , mild and occasional ??? Post-operative nausea and vomiting Last 2 uneventful, most recent here at [facility], see surigical notes from 12/01/20 Past Surgical History: Procedure Laterality Date ??? SECTION ??? ECTOPIC SURGERY x 2 ??? ORTHOPEDIC SURGERY ??? PRO ARTHROPLASTY ANKLE WITH IMPLANT Left 11/21/2021 TOTAL ANKLE ARTHROPLASTY (WRVU 14.42) performed by Tio Covarrubias MD at [facility] MAIN OR ??? PRO OSTEOTOMY HEEL BONE Left 12/01/2020 OSTEOTOMY, CALCANEUS (WRVU 9.73) performed by Tio Covarrubias MD at [facility] MAIN OR ??? PRO REMOVAL DEEP IMPLANT Left 12/01/2020 REMOVAL OF IMPLANT, DEEP, FOOT (WRVU 5.96) performed by Tio Covarrubias MD at [facility] MAIN OR ??? TUBAL LIGATION ??? XR FLUORO INJECTION DRAINAGE JOINT MD LEFT Left 09/06/2020 XR Fluoro Guided Joint Injection Medium Left 09/06/2020 Janell Shah, DEODORIZER OPERATOR 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 Equipment at home: bathroom equipment as [...] least 2+/5, biceps 5/5, triceps 5/5, good contour grinder - RLE- hip abduction at least 2+/5, [...] assistive devices, and her online rehab program ([facility]). Based on current presentation, recommend patient discharge [...] IN / OUT: First session:; Second Session: [id number] Total Minutes, Physical Therapy: 44 Billing Code: mod ev, TEF Collette Nuñez , [facility] Physical Therapy Inpatient Rehabilitation Department Patient status, treatment interventions, and goals discussed with student. I am in agreement with all details and associated flowsheet rows as documented and was present for all aspects of the patient treatment session. NIKA LARES, PT Pager # [phone] * Ad, Kartik Mcclure MD - 11/22/2021 [...] Time Provider Department Center 12/06/2021 11:[address] [facility] DX ROOM [address] [facility] Rad 12/06/2021 11:30 AM Karey De PA [facility]C [facility] * Freddie Walker MD - 11/21/2021 10:22 [...] PT/OT Dispo: pending PT/OT eval Follow-up: scheduled Frdedie Walker MD 11/21/2021 Future Appointments Date Time Provider Department Center 12/06/2021 11:[address] [facility] DX ROOM [address] [facility] Rad 12/06/2021 11:30 AM Karey De PA [facility]C [facility] * Bianca Rizo RN - 11/21/2021 10:09 [...] planning on spending the night in the [facility]. Tio Covarrubias MD [place] Orthopaedic Surgery Attending documented in this encounter Miscellaneous Notes * Op Note - Tio Covarrubias MD - 11/21/2021 7:53 AM EDT [facility] Operative Note Patient Name: Susan Whitney : [id number] MR#: [id number] Case Date: 11/21/2021 Surgeon: Surgeon(s) and Role: * Tio Covarrubias MD - Primary * AdKartik MD - Resident Preoperative diagnosis: Left ankle [...] Implant Name Type Inv. Item Serial No. Tile Grader Lot No. LRB No. Used Action infinity adaptis tibial tray size 3 material [id number] Left 1 Implanted COMPONENT TALAR ANKLE JOINT SZ 2 INFINITY ADAPTIS ([id number]) - [id number] IMPLANTS COMPONENT TALAR ANKLE JOINT SZ 2 INFINITY ADAPTIS ([id number]) Veotag [facility] Movebubble [id number] Left 1 Implanted infinity everlast cross-linked poly insert size 2+ h:8mm [id number] Left 1 Implanted Description of procedure: After [...] checked its depth. We used a lamina ethnoarchaeology professor to anchor the tibial trial and then [...] tibial baseplate and put it on the humanities department chair. We lined up the pegs and used [...] 9:23 AM EDT Arthroplasty Ankle With Implant ([id number]) 11/21/2021 7:23 AM EDT Left ankle arthritis [...] Day of Surgery (Day of Procedure), Routine 06 (Given - Provider: Edith Rojas RN) acetaminophen [...] Provider: Melinda Thomas RN)2129 (Given - Provider: Leixe Anthony RN) 0527 (Given - Provider: Freddie [...] Melinda Thomas RN)1931 (Stopped - Provider: Lexie Anthony, JOSHUA) 0357 (New Bag - Provider: Lexie Anthony, [...] Not Verified (add comment) - Provider: Anibal Miles, JOSHUA - Comment: Not wearing) senna-docusate (Pericolace) 8.6-50 mg per tablet 2 tablet 2 tablet, Oral, 2 TIMES DAILY, First dose on Sun11/21/21 at 1315, Until Discontinued, Routine 1352 (Given - Provider: Melinda Thomas RN)2006 (Given - Provider: Lexie Anthony RN) 0845 (Given - Provider: Anibal Miles, RN) sodium chloride 0.9 % (flush) (BD [...] Thomas RN) 0849 (Given - Provider: Anibal Miles RN) lidocaine (Xylocaine) 1% (10 mg/mL) injection 3 [...] Routine documented in this encounter Care Teams Foster Care Social Worker Relationship Specialty Start Date End Date Jennifer Suarez, DEODORIZER OPERATOR [address] [place] [address] PCP - General Family Medicine 07/14/20 11/20/22 documented as of this encounter
--- OUTSIDE RECORDS SUMMARY | 2024-01-08 15:43 | XMS_ITS | Encounter Summary ---
Author Organization [facility] Address [facility] [place] [address] Care Team Providers Care Armor Reconnaissance Specialist Name Role Phone Ramiro Melo MD Primary Care Provider [phone] Reason for Visit * Reason Comments Follow Up Surgery L TAA DOS 11/21/21 (C OE) Encounter Details Date Type Department Care Team (Late st Contact Info) Description 11/21/2022 1:40 PM EDT Office [place] [phone] Jennifer Stanley, ROMINA [facility] DR [place] [address] History of arthroplasty of left ankle (Primary [...] this encounter Progress Notes * Jennifer Stanley, ENTERPRISE DATA ARCHITECT - 11/21/2022 1:40 PM EDT Images from [...] of infection. Susan has been ambulating with NaytevAT and working with an HEP at this [...] Primary documented in this encounter Care Teams Armor Reconnaissance Specialist Relationship Specialty Start Date End Date Ramiro Melo MD [address] [place] [address] PCP - General Family Medicine 11/21/22 documented as of this encounter
--- OUTSIDE RECORDS SUMMARY | 2024-01-08 15:43 | XMS_ITS | Encounter Summary ---
Author Organization [facility] [place] [address] Care Team Providers Care Network Operations Manager Name Role Phone Jennifer Suarez APRN Primary Care Provider [phone] Encounter Details Date Type Department Care Team [...] on filedocumented in this encounter Care Teams Network Operations Manager Relationship Specialty Start Date End Date Jennifer Suarez APRN [address] [place] [address] PCP - General Family Medicine 07/14/20 11/20/22 documented as of this encounter
--- OUTSIDE RECORDS SUMMARY | 2024-01-08 15:43 | XMS_ITS | Encounter Summary ---
Author Organization [facility] [place] [address] Care Team Providers Care Senior Sourcing Manager Name Role Phone Ramiro Melo MD Primary Care Provider [phone] Encounter Details Date Type Department Care Team [...] filedocumented in this encounter Care Teams Senior Sourcing Manager Relationship Specialty Start Date End Date Ramiro Melo MD [address] [place] [address] PCP - General Family Medicine 11/21/22 documented as of this encounter
--- OUTSIDE RECORDS SUMMARY | 2024-01-08 15:43 | XMS_ITS | Encounter Summary ---
Author Organization [facility] Address [facility] [place] [address] Care Team Providers Care Oil Well Logger Name Role Phone Jennifer Suarez APRN Primary Care Provider [phone] Encounter Details Date Type Department Care Team (Late st Contact Info) Description 09/16/2021 [place] [address] Cyn Murphy, PT [facility] PHYSICAL MEDICINE & [place] [address] Social History Tobacco Use Types Packs/Day Years [...] on land line but no answering machine. [facility] message regarding the same was sent on 09/13/21. Cyn Dawn PT documented in this encounter Plan of Treatment Not on file documented as of this encounter Visit Diagnoses Not on filedocumented in this encounter Care Teams Oil Well Logger Relationship Specialty Start Date End Date Jennifer Suarez, ROMINA [address] [facility] [place] [address] PCP - General Family Medicine 07/14/20 11/20/22 documented as of this encounter
--- OUTSIDE RECORDS SUMMARY | 2024-01-08 15:43 | XMS_ITS | Encounter Summary ---
Author Organization [facility] Address [facility] [place] [address] Care Team Providers Care Pipe Stem Repairer Name Role Phone Ramiro Melo MD Primary Care Provider [phone] Reason for Visit * Physical Therapy (Routine) - Closed Specialty Diagnoses / Procedures Referred By Cheri silverman Referred To Contact Physical Therapy Diagnoses Acquired left hindfoot varus Edema of left lower leg History of arthroplasty of left ankle Jennifer Stanley APRN [facility] [place] [address] Marsha Murphy, PT [facility] PHYSICAL MEDICINE & [place] [address] Referral ID Status Reason Start Date Expiration Date V isits Requested Visits Authorized [id number] Closed Evaluate and Treat 10/23/2022 10/23/2023 30 30 Encounter Details Date Type Department Care Team (Late st Contact Info) Description 11/21/2022 9:00 AM EDT Office Visit [place] [address] Marsha Murphy, PT [facility] PHYSICAL MEDICINE & [place] [address] Hereditary lymphedema Social History Tobacco Use Types [...] on. Had bought compression knee highs at [employer] 12[employer]15 mmhg, They wrinkle and cut in at the ankle andcut in behind the knee. Pt known to me from [facility] 08/26/21. Since last seen pt has been [...] for primary subtalar osteoarthritis in 2016 in [place] followed byleft hindfoot varus s/p lateral closing [...] care : lives with [facility], in [place], [place]. 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 [...] to self bandage and video sent via [facility] Compression bandage precautions: pt advised [...] garments. 2. independent in self care. Therapy Long-Term Goals 8 weeks 1. maintain reduction in [...] and self care/home management x 1 MARSHA MURPHY PT, CLT documented in this [...] legs documented in this encounter Care Teams Pipe Stem Repairer Relationship Specialty Start Date End Date Ramiro Melo MD [facility] [address] [address] PCP - General Family Medicine 11/21/22 documented as of this encounter
--- OUTSIDE RECORDS SUMMARY | 2024-01-08 15:43 | XMS_ITS | Encounter Summary ---
Author Organization [facility] [place] [address] Care Team Providers Care Personnel Training Officer Name Role Phone Ramiro Melo MD Primary Care Provider [phone] Encounter Details Date Type Department Care Team (Late st Contact Info) Description 11/21/2022 Orders [place] [address] Jennifer Stanley APRN [facility] [place] [address] Lymphedema; Swelling of calf; Foot swelling Social [...] limb documented in this encounter Care Teams Personnel Training Officer Relationship Specialty Start Date End Date Ramiro Melo MD [address] [place], [place] [id number] PCP - General Family Medicine 11/21/22 documented as of this encounter
--- OUTSIDE RECORDS SUMMARY | 2024-01-08 15:43 | XMS_ITS | Encounter Summary ---
Author Organization [facility] Address [facility] [place] [address] Care Team Providers Care Sash Sticker Name Role Phone Ramiro Melo MD Primary Care Provider [phone] Encounter Details Date Type Department Care Team (Latest Contact Info) Description 11/21/2022 12:21 PM EDT - 11/21/2022 11:59 PM EDT Hospital Encounter XRay at [address] [place] [address] Jennifer Stanley, PHYSICAL THERAPIST TECHNICIAN [facility] [place] [address] History of arthroplasty of left ankle Discharge [...] Capsule Take 2,000 Units by mouth daily. 3520-7457 units prescribed albuteroL 90 mcg/actuation HFA Aerosol Inhaler INHALE ONE TO TWO PUFFS BY MOUTH EVERY 4 TO 6 HOURS NEEDED 06/10/2020 multivitamin Capsule Take 1 capsule by mouth daily. 12/04/2023 documented as of this encounter Plan of [...] who have questions please contact the health manager critical care that requested your imaging first. ? Narrative [...] patients who have questions please contactthe health manager critical care that requested your imaging first. Jennifer Stanley APRN IMG DX ORDERABLES documented in this encounter Visit Diagnoses Diagnosis History of arthroplasty of left ankle documented in this encounter Care Teams Sash Sticker Relationship Specialty Start Date End Date Ramiro Melo MD [address] [place] [address] PCP - General Family Medicine 11/21/22 documented as of this encounter
--- OUTSIDE RECORDS SUMMARY | 2024-01-08 15:43 | XMS_ITS | Encounter Summary ---
Author Organization [facility] Address [facility] [place] [address] Care Team Providers Care Liquefaction Plant Operator Name Role Phone Jennifer Suarez APRN Primary Care Provider Encounter Details Date Type Department Care Team (Latest Contact Info) Description 01/06/2022 3:11 PM EDT - 01/06/2022 11:59 PM EDT Hospital Encounter XRay at [address] [place] [address] Iris [place] MD [facility] [place] [address] Arthritis of left ankle; Acquired left hindfoot [...] Capsule Take 2,000 Units by mouth daily. 8468-7424 units prescribed albuteroL 90 mcg/actuation HFA Aerosol [...] please contact the health manager critical care unit that requested your imaging first. ? Narrative [...] questions please contactthe health manager critical care unit that requested your imaging first. 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 Mayo) History of arthroplasty of left ankle documented in this encounter Care Teams Liquefaction Plant Operator Relationship Specialty Start Date End Date Jennifer Suarez, WEALTH MANAGEMENT CONSULTANT [address] [place] [address] PCP - General Family Medicine 07/14/20 11/20/22 documented as of this encounter
--- OUTSIDE RECORDS SUMMARY | 2024-01-08 15:43 | XMS_ITS | Encounter Summary ---
Author Organization [facility] Address [facility] [place] [address] Care Team Providers Care Cocoa Powder Mixer Operator Name Role Phone Jennifer Suarez APRN Primary Care Provider [phone] Encounter Details Date Type Department Care Team (Latest Contact Info) Description 12/06/2021 10:46 AM EDT - 12/06/2021 11:59 PM EDT Hospital Encounter XRay at [address] [place] [address] Tio Mayo MD [facility] [place] [address] Arthritis of left ankle Discharge Disposition: Home [...] Capsule Take 2,000 Units by mouth daily. 6582-0086 units prescribed albuteroL 90 mcg/actuation HFA Aerosol [...] questions please contact the health care team coordinator scheduler that requested your imaging first. ? Narrative [...] have questions please contactthe health care team coordinator scheduler that requested your imaging first. Tio Mayo MD IMG DX ORDERABLES documented in this encounter Visit Diagnoses Diagnosis Arthritis of left ankle Unspecified arthropathy, ankle and foot documented in this encounter Care Teams Cocoa Powder Mixer Operator Relationship Specialty Start Date End Date Jennifer Suarez, NODE JS DEVELOPER [address] [place] [address] PCP - General Family Medicine 07/14/20 11/20/22 documented as of this encounter
--- OUTSIDE RECORDS SUMMARY | 2024-01-08 15:43 | XMS_ITS | Encounter Summary ---
Author Organization [facility] [address] Care Team Providers Care Clay Dry Press Helper Name Role Phone Ramiro Melo MD Primary Care Provider [phone] Encounter Details Date Type Department Care Team [...] on filedocumented in this encounter Care Teams Clay Dry Press Helper Relationship Specialty Start Date End Date Ramiro Melo MD [address] [place] [address] PCP - General Family Medicine 11/21/22 documented as of this encounter
--- OUTSIDE RECORDS SUMMARY | 2024-01-08 15:43 | XMS_ITS | Encounter Summary ---
Author Organization [facility] Address [facility] [place] [address] Care Team Providers Care Line Dancer Name Role Phone Jennifer Suarez APRN Primary Care Provider [phone] Reason for Visit * Reason Comments Pre-op Exam CASE REQ 11/21/21 LEF T TAA Encounter Details Date Type Department Care Team (Late st Contact Info) Description 10/31/2021 9:00 AM EDT Office Visit [place] [address] Tio Mayo MD [facility] [place] [address] Arthritis of left ankle Social History Tobacco [...] each documented in this encounter Care Teams Line Dancer Relationship Specialty Start Date End Date Jennifer Suarez APRN [address] [place] [address] PCP - General Family Medicine 07/14/20 11/20/22 documented as of this encounter
--- OUTSIDE RECORDS SUMMARY | 2024-01-08 15:43 | XMS_ITS | Encounter Summary ---
Author Organization [facility] [place] [address] Care Team Providers Care Operations Leader Name Role Phone Jennifer Suarez APRN Primary Care Provider [phone] Encounter Details Date Type Department Care Team (Late st Contact Info) Description 10/14/2021 Orders Only [place] [address] Tio Mayo MD [facility] [place] [address] Arthritis of left ankle Social History Tobacco [...] who have questions please contact the health long term care pharmacist that requested your imaging first. ? Electronically signed by: MEGAN QUARLES MD, [facility] ([phone]), at 12/06/2021 1:19 PM Narrative 12/06/2021 1:19 PM EDT EXAMINATION: XR [...] patients who have questions please contactthe health long term care pharmacist that requested your imaging first. Tio Mayo MD IMG DX ORDERABLES documented in this encounter Visit Diagnoses Diagnosis Arthritis of left ankle Unspecified arthropathy, ankle and foot Arthritis of left ankle Unspecified arthropathy, ankle and foot documented in this encounter Care Teams Operations Leader Relationship Specialty Start Date End Date Jennifer Suarez, JAVA DEVELOPER CONSULTANT [address] [place] [address] PCP - General Family Medicine 07/14/20 11/20/22 documented as of this encounter
--- OUTSIDE RECORDS SUMMARY | 2024-01-08 15:43 | XMS_ITS | Encounter Summary ---
Author Organization [facility] Address [facility] [place] [address] Care Team Providers Care Biology Faculty Member Name Role Phone Jennifer Suarez ROMINA Primary Care Provider [phone] Reason for Visit * Reason Comments Follow-up Post Op L TAA DOS: 2 (SATISH) Encounter Details Date Type Department Care Team (Late st Contact Info) Description 05/23/2022 1:00 PM EST Office [place] [address] Jennifer Stanley APRN [facility] [place] [address] History of arthroplasty of left ankle (Primary [...] this encounter Progress Notes * Jennifer Stanley, FISHING ROD MARKER - 05/23/2022 1:00 PM EST Arthroplasty/Orthopaedic History: [...] chills. 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 No new RTW forms requested. [employer] applications: Ok to update today. Pt agrees, [...] who have questions please contact the health daytime caregiver that requested your imaging first. ? Narrative [...] patients who have questions please contactthe health daytime caregiver that requested your imaging first. Jennifer Stanley APRN IMG DX ORDERABLES documented in this encounter Visit Diagnoses Diagnosis History of arthroplasty of left ankle- Primary History of arthroplasty of left ankle documented in this encounter Care Teams Biology Faculty Member Relationship Specialty Start Date End Date Jennifer Suarez APRN [address] [place] [facility] [address] PCP - General Family Medicine 07/14/20 11/20/22 documented as of this encounter
--- OUTSIDE RECORDS SUMMARY | 2024-01-08 15:43 | XMS_ITS | Encounter Summary ---
Author Organization [facility] Address [facility] [place] [address] Care Team Providers Care Windows Admin Name Role Phone Jennifer Saurez ROMINA Primary Care Provider [phone] Encounter Details Date Type Department Care Team (Latest Contact Info) Description 05/23/2022 12:06 PM EST - 05/23/2022 11:59 PM [facility] Hospital Encounter XRay at [address] [place] [address] Jennifer Stanley APRN [facility] [place] [address] History of arthroplasty of left ankle Discharge [...] Capsule Take 2,000 Units by mouth daily. 8785-3343 units prescribed albuteroL 90 mcg/actuation HFA Aerosol [...] have questions please contact the health rn acute care that requested your imaging first. ? [...] who have questions please contactthe health rn acute care that requested your imaging first. Jennifer Stanley APRN IMG DX ORDERABLES documented in this encounter Visit Diagnoses Diagnosis History of arthroplasty of left ankle documented in this encounter Care Teams Windows Admin Relationship Specialty Start Date End Date Jennifer Suarez APRN [address] [place] [address] PCP - General Family Medicine 07/14/20 11/20/22 documented as of this encounter
--- OUTSIDE RECORDS SUMMARY | 2024-01-08 15:43 | XMS_ITS | Encounter Summary ---
Author Organization [facility] [place] [address] Care Team Providers Care Friction Welding Machine Operator Name Role Phone Ramiro Melo MD Primary Care Provider [phone] Encounter Details Date Type Department Care Team [...] on filedocumented in this encounter Care Teams Friction Welding Machine Operator Relationship Specialty Start Date End Date Ramiro Melo MD [address] [place] [address] PCP - General Family Medicine 11/21/22 documented as of this encounter
--- OUTSIDE RECORDS SUMMARY | 2024-01-08 15:43 | XMS_ITS | Encounter Summary ---
Author Organization [facility] [place] [address] Care Team Providers Care Computer Numerical Control Programmer Name Role Phone Ramiro Melo MD Primary Care Provider [phone] Encounter Details Date Type Department Care Team (Late st Contact Info) Description 11/24/2022 Orders [place] [address] Tio Mayo MD [facility] [place] [address] Pain of left lower extremity Social History [...] extremity documented in this encounter Care Teams Computer Numerical Control Programmer Relationship Specialty Start Date End Date Ramiro Melo MD [address] [place] [address] PCP - General Family Medicine 11/21/22 documented as of this encounter
--- OUTSIDE RECORDS SUMMARY | 2024-01-08 15:43 | XMS_ITS | Encounter Summary ---
Author Organization [facility] [place] [address] Care Team Providers Care Bioinformatics Technician Name Role Phone Jennifer Suarez APRN Primary Care Provider [phone] Reason for Visit * Auth/Cert Specialty Diagnoses / Procedures Referred By Cheri silverman Referred To Contact Diagnoses Varus deformity, not elsewhere classified, left ankle Primary osteoarthritis, left ankle and foot Left ankle arthritis Procedures PRO ARTHROPLASTY ANKLE WITH IMPLANT TOTAL ANKLE ARTHROPLASTY (WRVU 14.42) Tio Covarrubias MD [facility] [place] [address] [facility] Referral ID Status Reason Start Date Expiration Date Visits Re quested Visits Authorized [id number] 1 1 Encounter Details Date Type Department Care Team (Latest Contact Info) Description 11/21/2021 5:47 AM EDT - 11/22/2021 3:30 PM EDT Hospital En[place] [address] Tio Covarrubias MD [facility] [place] [address] Discharge Disposition: Home Social History Tobacco Use [...] this encounter Discharge Summaries * Kat Mo, CUSTOMER EXPERIENCE RETAIL CLERK - 11/21/2021 4:41 PM EDT Discharge Summary Patient Name: Susan Whitney Patient Age: 51 y.o. Language: Azerbaijani Race: White Ethnicity: Not nor Admit date: 11/21/2021 Discharge date and time: 11/22/2021 Attending Physician: Tio Covarrubias MD Discharge Physician: Tio Covarrubias MD Follow-up Recommendations for Providers: See discharge instructions for additional details. Future Appointments Date Time Provider Department Center 12/06/2021 11:00 AM [facility] DX ROOM 2 Xray [facility] Rad 12/06/2021 11:30 AM Karey De PA [facility] ORTH 3C [facility] Inpatient Provider Contact Information: Tio Covarrubias MD Orthopedics: [phone] After hours and weekends, call [facility] Edge Bander Hand, , and have the Orthopedic resident paged. [...] Hospitalization: Immunization History Administered Date(s) Administered ??? [employer] Covid-19 Vaccine 01/07/2021 ??? Tdap Vaccine 05/09/2016 [...] Cap Take 2,000 Units by mouth daily. 6558-4431 units prescribed 2,000 Units Refills: 0 gabapentin [...] as much as possible. Call your doctor ([phone]) if you develop: 1. Fever greater than 100.5 2. Severe nausea or vomiting 3. Increasing pain that is not controlled by pain medications 4. Increasing redness, swelling, or drainage from incisions 5. Change in sensation FOLLOW-UP APPOINTMENTS: 1. You will have follow-up appointments at [facility] as indicated below in Future Appointment and Orders. 2. You will need to have x-rays prior to your follow-up appointment listed below. Please come to Radiology, desk , 1 hour BEFORE that appointment for these x-rays. Future Appointments Date Time Provider Department Center 12/06/2021 11:00 AM [facility] DX ROOM 2 Xray [facility] Rad 12/06/2021 11:30 AM Karey De PA [facility] ORTH [address] [place] [address] If you have questions or concerns: Sunday through Sunday, 8 AM - 5 PM, please call Dr. Tio Covarrubias MD's office at . If it is after 5 PM, the weekend, or holidays, please call and ask to speak with theOrthopedic resident on-call. General Instructions None Future Appointments and Orders Future Appointments and Orders Future Appointments Provider Department Dept Phone 12/06/2021 11:00 AM [facility] DX ROOM 2 XRay at [facility] Arrive at: [facility] [phone] Please go to [facility] ([place] Location). 12/06/2021 11:30 AM Karey De PA Orthopaedics at [facility] Arrive at: [facility] Area [phone] Primary Care Provider: Jennifer Suarez APRN [phone] Discharge References/Attachments None documented in this encounter [...] as much as possible. Call your doctor ([phone]) if you develop: Fever greater than 100.5 Severe nausea or vomiting Increasing pain that is not controlled by pain medications Increasing redness, swelling, or drainage from incisions Change in sensation FOLLOW-UP APPOINTMENTS: 1. You will have follow-up appointments at [facility] as indicated below in Future Appointment and Orders. 2. You will need to have x-rays prior to your follow-up appointment listed below. Please come to Radiology, desk 3T, 1 hour BEFORE that appointment for these x-rays. Future Appointments Date Time Provider Department Center 12/06/2021 11:00 AM [facility] DX ROOM 2 MH Xray [facility] Rad 12/06/2021 11:30 AM Karey De PA [facility] ORTH 3C [facility] If you have [...] Capsule Take 2,000 Units by mouth daily. 3709-9099 units prescribed albuteroL 90 mcg/actuation HFA Aerosol [...] Hannah MD PGY-4 Anesthesiology Regional Block Team #[id number] * Anibal Miles RN - 11/22/2021 3:29 PM EDT [facility] Short Stay Unit Discharge Note All relevant [...] SpO2 98 % Prasanna Perez OT Pager: [phone] * EllenChrisNika Daily, PT - 11/22/2021 12:14 PM EDT [...] pac???s as noted on holter 01/2020 at [facility] , mild and occasional ??? Post-operative nausea and vomiting Last 2 uneventful, most recent here at [facility], see surigical notes from 12/01/20 Past Surgical History: Procedure Laterality Date ??? SECTION ??? ECTOPIC SURGERY x 2 ??? ORTHOPEDIC SURGERY ??? PRO ARTHROPLASTY ANKLE WITH IMPLANT Left 11/21/2021 TOTAL ANKLE ARTHROPLASTY (WRVU 14.42) performed by Tio Covarrubias MD at [facility] MAIN OR ??? PRO OSTEOTOMY HEEL BONE Left 12/01/2020 OSTEOTOMY, CALCANEUS (WRVU 9.73) performed by Tio Covarrubias MD at [facility] MAIN OR ??? PRO REMOVAL DEEP IMPLANT Left 12/01/2020 REMOVAL OF IMPLANT, DEEP, FOOT (WRVU 5.96) performed by Tio Covarrubias MD at [facility] MAIN OR ??? TUBAL LIGATION ??? XR FLUORO INJECTION DRAINAGE JOINT MD LEFT Left 09/06/2020 XR Fluoro Guided Joint Injection Medium Left 09/06/2020 Janell Shah, CUSTOMER EXPERIENCE RETAIL CLERK [facility] RAD XRAY Active Non-Hospital Problems Diagnosis ??? 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 Equipment at home: bathroom equipment as [...] least 2+/5, biceps 5/5, triceps 5/5, good implementation specialist - RLE- hip abduction at least 2+/5, [...] assistive devices, and her online rehab program ([facility]). Based on current presentation, recommend patient discharge [...] IN / OUT: First session:; Second Session: [id number] Total Minutes, Physical Therapy: 44 Billing Code: mod ev, TEF Collette Nuñez , [facility] Physical Therapy Inpatient Rehabilitation Department Patient status, treatment interventions, and goals discussed with student. I am in agreement with all details and associated flowsheet rows as documented and was present for all aspects of the patient treatment session. NIKA LARES, PT Pager # [phone] * Kartik Duong MD - 11/22/2021 6:38 AM EDT ORTHOPAEDIC [...] Time Provider Department Center 12/06/2021 11:00 AM [facility] DX ROOM 2 MH Xray [facility] Rad 12/06/2021 11:30 AM Karey De PA [facility] ORTH 3C [facility] * Freddie Walker [...] Time Provider Department Center 12/06/2021 11:00 AM [facility] DX ROOM 2 Xray [facility] Rad 12/06/2021 11:30 AM Karey De PA [facility] ORTH 3C [facility] * Bianca Rizo [...] planning on spending the [facility]. Tio Covarrubias MD [place] Orthopaedic Surgery Attending documented in this encounter Miscellaneous Notes * Op Note - Tio Covarrubias MD - 11/21/2021 7:53 AM EDT [facility] Operative Note Patient Name: Susan Whitney : [id number] MR#: [id number] Case Date: 11/21/2021 Surgeon: Surgeon(s) and Role: [...] Implant Name Type Inv. Item Serial No. Manager Privacy Lot No. LRB No. Used Action infinity adaptis tibial tray size 3 material [id number] Left 1 Implanted COMPONENT TALAR ANKLE JOINT SZ 2 INFINITY ADAPTIS ([id number]) - [id number] IMPLANTS COMPONENT TALAR ANKLE JOINT SZ 2 INFINITY ADAPTIS ([id number]) [employer] [facility] - [id number] Left 1 Implanted infinity everlast cross-linked poly insert size 2+ h:8mm [id number] Left 1 Implanted Description of procedure: After [...] checked its depth. We used a lamina raw cheese worker to anchor the tibial trial and then [...] tibial baseplate and put it on the donor specialist. We lined up the pegs and used [...] 9:23 AM EDT Arthroplasty Ankle With Implant ([id number]) 11/21/2021 7:23 AM EDT Left ankle arthritis [...] Rizo RN)1200 (Stopped - Provider: Bianca Rizo RN)190 (New Bag - Provider: Melinda Thomas RN)193 (Stopped - Provider: Lexie Anthony RN) 356 (New Bag - Provider: Lexie Anthony RN)042 (Stopped - Provider: Lexie Anthony RN) pantoprazole [...] Procedure), Routine 0650 (Given - Provider: Edith Rojas, RN)0655 (Given - Provider: Edith Rojas RN) [...] Routine documented in this encounter Care Teams Bioinformatics Technician Relationship Specialty Start Date End Date Jennifer Suarez, ROMINA [address] [place] [address] PCP - General Family Medicine 07/14/20 11/20/22 documented as of this encounter
--- OUTSIDE RECORDS SUMMARY | 2024-01-08 15:43 | XMS_ITS | Encounter Summary ---
Author Organization [facility] [place] [address] Care Team Providers Care Drapery Cutter Name Role Phone Ramiro Melo MD Primary Care Provider [phone] Encounter Details Date Type Department Care Team (Late st Contact Info) Description 11/22/2022 Orders [place] [address] Jennifer Stanley APRN [facility] [place] [address] Lymphedema; Swelling of calf; Foot swelling Social [...] limb documented in this encounter Care Teams Drapery Cutter Relationship Specialty Start Date End Date Ramiro Melo MD [address] [place], [place] [id number] PCP - General Family Medicine 11/21/22 documented as of this encounter
--- OUTSIDE RECORDS SUMMARY | 2024-01-08 15:43 | XMS_ITS | Encounter Summary ---
Author Organization [facility] Address [facility] [place] [address] Care Team Providers Care Sterile Technician Name Role Phone Jennifer Suarez APRN Primary Care Provider [phone] Reason for Referral * Physical Therapy (Routine) - Closed Specialty Diagnoses / Procedures Referred By Cheri silverman Referred To Contact Diagnoses Arthritis of left ankle Karey De PA [facility] [place] [address] Referral ID Status Reason Start Date Expiration Date V isits Requested Visits Authorized [id number] Closed Evaluate and Treat 12/06/2021 06/04/2022 12 12 Reason for Visit * Reason Comments Follow Up Surgery Encounter Details Date Type Department Care Team (Late st Contact Info) Description 12/06/2021 11:30 AM EDT Office [place] [address] [address]y De PA [facility] ORTHOPAEDIC SURGERY [place], [place] [id number] Arthritis of left ankle; Acquired left hindfoot [...] NAME: Susan Whitney AGE: 51 y.o. MR#: [id number] DATE OF VISIT: 12/06/2021 CHIEF COMPLAINT: 2 [...] now roughly 2 weeks out post 11/21/21 ([facility] [place]) LEFT total ankle arthroplasty PLAN: We had [...] who have questions please contact the health director of managed care that requested your imaging first. ? [...] patients who have questions please contactthe health director of managed care that requested your imaging first. Iris Jackson [...] ankle documented in this encounter Care Teams Sterile Technician Relationship Specialty Start Date End Date Jennifer Suarez, CLASS B TRUCK DRIVER [address] [place] [address] PCP - General Family Medicine 07/14/20 11/20/22 documented as of this encounter
--- OUTSIDE RECORDS SUMMARY | 2024-01-08 15:43 | XMS_ITS | Encounter Summary ---
Author Organization [facility] Address [place] [address] Care Team Providers Care Hoisting Laborer Name Role Phone Ramiro Melo MD Primary Care Provider [phone] Reason for Visit * Physical Therapy (Routine) - Closed Specialty Diagnoses / Procedures Referred By Cheri silverman Referred To Contact Physical Therapy Diagnoses Acquired left hindfoot varus Edema of left lower leg History of arthroplasty of left ankle Jennifer Stanley APRN [facility] [place] [address] Marsha Murphy, PT [facility] PHYSICAL MEDICINE & [place] [address] Referral ID Status Reason Start Date Expiration Date V isits Requested Visits Authorized [id number] Closed Evaluate and Treat 10/23/2022 10/23/2023 30 30 Encounter Details Date Type Department Care Team (Late st Contact Info) Description 04/17/2023 9:00 AM EST Office [place] [address] Marsha Murphy, PT [facility] PHYSICAL MEDICINE & [place] [address] Secondary lymphedema Social History Tobacco Use Types [...] - Therapy - Marsha Murphy, PT - 04/17/2023 9:00 AM EST Images [...] on. Had bought compression knee highs at [employer] 12-15 mmhg, They wrinkle and cut in at the ankle andcut in behind the knee. Pt known to me from [employer] 08/26/21. Since last seen pt has been [...] for primary subtalar osteoarthritis in 2016 in [place] followed byleft hindfoot varus s/p lateral closing [...] care : lives with [facility] [employer], in [place], [place]. 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 [...] today. I recommended the [employer] Sensation halle [...] [employer] Short Halle 613, size 2X Previously: Short stretch bandages applied to left L/E to knee. Pt and SO Ye instructed how to self bandage and video sent via [facility] Compression bandage precautions: pt advised [...] self care. 3. Evaluate for pump Therapy Forms Builder Goals 8 weeks 1. maintain reduction in [...] lymphedema documented in this encounter Care Teams Hoisting Laborer Relationship Specialty Start Date End Date Ramiro Melo MD [address] [place] [address] PCP - General Family Medicine 11/21/22 documented as of this encounter
--- OUTSIDE RECORDS SUMMARY | 2024-01-08 15:43 | XMS_ITS | Encounter Summary ---
Author Organization [facility] [place] [address] Care Team Providers Care Poured Pipe Maker Name Role Phone Ramiro Melo MD Primary Care Provider [phone] Encounter Details Date Type Department Care Team [...] on filedocumented in this encounter Care Teams Poured Pipe Maker Relationship Specialty Start Date End Date Ramiro Melo MD [address] [place] [address] PCP - General Family Medicine 11/21/22 documented as of this encounter
--- OUTSIDE RECORDS SUMMARY | 2024-01-08 15:43 | XMS_ITS | Encounter Summary ---
Author Organization [facility] Address [facility] [place] [address] Care Team Providers Care Harness Fitter Name Role Phone Jennifer Suarez APRN Primary Care Provider [phone] Reason for Visit * Reason Comments Follow-up L TAA DOS: 2 (SATISH) Encounter Details Date Type Department Care Team (Late st Contact Info) Description 01/06/2022 4:00 PM EDT Office [place] [phone] Karey De PA [facility] [place] [address] Arthritis of left ankle Social History Tobacco [...] NAME: Susan Whitney AGE: 51 y.o. MR#: [id number] DATE OF VISIT: 01/06/2022 CHIEF COMPLAINT: 6 [...] who have questions please contact the health neonatal critical care nurse that requested your imaging first. ? Electronically signed by: Deb Michelle MD, [facility] ([phone]), at 02/21/2022 2:16 PM Narrative 02/21/2022 2:16 [...] patients who have questions please contactthe health neonatal critical care nurse that requested your imaging first. Electronically signed by: Deb Michelle MD, [facility]([phone]), at 02/21/2022 2:16 PM Iris Jackson MD IMG DX ORDERABLES documented in this encounter Visit Diagnoses Diagnosis Arthritis of left ankle Unspecified arthropathy, ankle and foot Arthritis of left ankle Unspecified arthropathy, ankle and foot documented in this encounter Care Teams Harness Fitter Relationship Specialty Start Date End Date Jennifer Suarez, ROMINA [address] [place] [address] PCP - General Family Medicine 07/14/20 11/20/22 documented as of this encounter
--- OUTSIDE RECORDS SUMMARY | 2024-01-08 15:43 | XMS_ITS | Encounter Summary ---
Author Organization [facility] Address [facility] [place] [address] Care Team Providers Care Production Designer Name Role Phone Ramiro Melo MD Primary Care Provider [phone] Reason for Visit * Physical Therapy (Routine) - Closed Specialty Diagnoses / Procedures Referred By Cheri silverman Referred To Contact Physical Therapy Diagnoses Acquired left hindfoot varus Edema of left lower leg History of arthroplasty of left ankle Jennifer Stanley APRN [facility] [place] [address] Marsha Murphy, PT [facility] PHYSICAL MEDICINE & [place] [address] Referral ID Status Reason Start Date Expiration Date V isits Requested Visits Authorized [id number] Closed Evaluate and Treat 10/23/2022 10/23/2023 30 30 Encounter Details Date Type Department Care Team (Late st Contact Info) Description 07/31/2023 11:00 AM EDT Office [place] [address] Marsha Murphy, PT [facility] PHYSICAL MEDICINE & [place] [address] Secondary lymphedema; Hereditary lymphedema Social History Tobacco [...] - Therapy - Marsha Murphy, PT - 07/31/2023 11:00 AM EDT Images from the original note were not included. LE LYMPHEDEMA INITIAL EXAMINATION Date of Exam/First treatment: 11/21/22 Date of Onset ~ 2016 Referring Provider: Tio aMyo MD Diagnosis and pertinent co-morbidities: lymphedema left [...] on. Had bought compression knee highs at [facility] 12-15 mmhg, They wrinkle and cut [...] for primary subtalar osteoarthritis in 2016 in [place] followed byleft hindfoot varus s/p lateral closing [...] care : lives with [facility] [employer], in [place], [place]. 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 [...] to self bandage and video sent via [facility] Compression bandage precautions: pt advised to wear [...] 3. Evaluate for pump MET 07/31/23 Therapy Grounds Maintenance Worker Goals 8 weeks 1. maintain reduction in [...] legs documented in this encounter Care Teams Production Designer Relationship Specialty Start Date End Date Ramiro Melo MD [address] [place] [address] PCP - General Family Medicine 11/21/22 documented as of this encounter
--- OUTSIDE RECORDS SUMMARY | 2024-01-08 15:43 | XMS_ITS | Encounter Summary ---
Author Organization [facility] [place] [address] Care Team Providers Care Auto Club Safety Program Coordinator Name Role Phone Jennifer Suarez APRN Primary Care Provider [phone] Reason for Visit * Reason Onset Date Comments Letter Request From Patient 09/08/2021 Encounter Details Date Type Department Care Team (Late st Contact Info) Description 09/08/2021 Telephone [place] [address] Tio Mayo MD [facility] [place] [address] Letter Request From Patient Social History Tobacco [...] and portal. * Telephone Encounter - Samira De lValle - 09/08/2021 9:08 AM EDT Provider last [...] absent from work. Would you like to grain picker your letter, fax, mail, or myD-H?mailed no email please, only as a last option To what address/fax#? [address] [place] [address] To whose attention?TO WHOM IT MAY CONCERN documented in this encounter Plan of Treatment Not on file documented as of this encounter Visit Diagnoses Not on filedocumented in this encounter Care Teams Auto Club Safety Program Coordinator Relationship Specialty Start Date End Date Jennifer Suarez APRN [address] [place] [address] PCP - General Family Medicine 07/14/20 11/20/22 documented as of this encounter
--- OUTSIDE RECORDS SUMMARY | 2024-01-08 15:43 | XMS_ITS | Encounter Summary ---
Author Organization [facility] [place] [address] Care Team Providers Care Reports Analysis Manager Name Role Phone Jennifer Suarez APRN [...] on filedocumented in this encounter Care Teams Reports Analysis Manager Relationship Specialty Start Date End Date Jennifer Suarez APRN [address] [place] [address] PCP - General Family Medicine 07/14/20 11/20/22 documented as of this encounter
--- OUTSIDE RECORDS SUMMARY | 2024-01-08 15:43 | XMS_ITS | Encounter Summary ---
Author Organization [facility] [place] [address] Care Team Providers Care Peer Specialist Name Role Phone Jennifer Suarez APRN Primary Care Provider [phone] Encounter Details Date Type Department Care Team [...] on filedocumented in this encounter Care Teams Peer Specialist Relationship Specialty Start Date End Date Jennifer Suarez APRN [address] [place] [address] PCP - General Family Medicine 07/14/20 11/20/22 documented as of this encounter
--- OUTSIDE RECORDS SUMMARY | 2024-01-08 15:43 | XMS_ITS | Encounter Summary ---
Author Organization [facility] Address [facility] [place] [address] Care Team Providers Care International Guest Coordinator Name Role Phone Jennifer Suarez APRN Primary Care Provider [phone] Encounter Details Date Type Department Care Team (Latest Contact Info) Description 02/21/2022 12:59 PM EST - 02/21/2022 11:59 PM [facility] Encounter XRay at [address] [place] [address] Iris Jackson MD [facility] [place] [address] Arthritis of left ankle Discharge Disposition: Home [...] Capsule Take 2,000 Units by mouth daily. 7756-6307 units prescribed albuteroL 90 mcg/actuation HFA Aerosol [...] who have questions please contact the health adult day care worker that requested your imaging first. ? Narrative [...] patients who have questions please contactthe health adult day care worker that requested your imaging first. Iris Jackson MD IMG DX ORDERABLES documented in this encounter Visit Diagnoses Diagnosis Arthritis of left ankle Unspecified arthropathy, ankle and foot documented in this encounter Care Teams International Guest Coordinator Relationship Specialty Start Date End Date Jennifer Suarez, ROMINA [address] [place] [address] PCP - General Family Medicine 07/14/20 11/20/22 documented as of this encounter
--- OUTSIDE RECORDS SUMMARY | 2024-01-08 15:43 | XMS_ITS | Encounter Summary ---
Author Organization [facility] [place] [address] Care Team Providers Care Enrober Tender Name Role Phone Jennifer Suarez APRN Primary Care Provider [phone] Reason for Visit * Auth/Cert Specialty Diagnoses / Procedures Referred By Cheri silverman Referred To Contact Diagnoses Varus deformity, not elsewhere classified, left ankle Primary osteoarthritis, left ankle and foot Left ankle arthritis Procedures PRO ARTHROPLASTY ANKLE WITH IMPLANT TOTAL ANKLE ARTHROPLASTY (WRVU 14.42) Tio Mayo MD [facility] [place] [address] [facility] Referral ID Status Reason Start Date Expiration Date Visits Re quested Visits Authorized [id number] 1 1 Encounter Details Date Type Department Care Team (Late st Contact Info) Description 11/21/2021 7:22 AM EDT Anesthesia Event [place] [address] Missael Lee MD [facility] [place] [address] Jeronimo Stanley MD [facility] [place] [address] Anesthesia Record Procedure Summary Procedure Name Responsible [...] anterior; ankle; vertical 11/21/21 0753 by Chung Godwin RN (RETIRED) Peripheral IV Line - Single Lumen 11/21/21; 0640; metacarpal vein (top of hand), left; [id number] catheter system; 20 gauge, 1 in length; Edith Rojas RN; distraction, tolerated well, appears comfortable; catheter/device intact, other (see comments) (discomfort with flushing); 11/21/21; 1725 11/21/21 0640 by Edith Rojas RN 11/21/21 1725 by Melinda Thomas RN Supraglottic Mask Ventilation: Ea sy (1); LMA Type: iGel; LMA Size: 4; Inserted by: vale mcpherson crna; Removal Date: 11/21/21; Removal Time: 0911/21/21 0732 by Vale Badillo CRNA 11/21/21 0949 [...] Procedure Summary Date: 11/21/21 Room / Location: [facility] OR [address] [place] [address] MAIN OR Anesthesia Start: 721 Anesthesia Stop: 100 Procedure: TOTAL ANKLE ARTHROPLASTY (WRVU 14.42) (Left Ankle) Diagnosis: (Left ankle arthritis) Surgeons: Tio Mayo MD Responsible Provider: Missael Lee MD Anesthesia Type: general ASA Status: 3 All Anesthesia Providers: Anesthesiologist: Missael Lee MD MORTGAGE ORIGINATOR: Vale Mcpherson CRNA Vitals Value Taken Time BP 142/75 11/21/21 1030 Temp Pulse 46 11/21/21 1034 Resp 9 11/21/21 1034 SpO2 98 % 11/21/21 1034 Pain Level Vitals shown include unvalidated device data. Patient Location: PACU/[facility] Level of Consciousness: Awake and Alert Pain [...] pac???s as noted on holter 01/2020 at [facility] , mild and occasional ??? Post-operative nausea and vomiting Last 2 uneventful, most recent here at [facility], see surigical notes from 12/01/20 Past Surgical History: Procedure Laterality Date ??? SECTION ??? ECTOPIC SURGERY x 2 ??? ORTHOPEDIC SURGERY ??? PRO OSTEOTOMY HEEL BONE Left 12/01/2020 OSTEOTOMY, CALCANEUS (WRVU 9.73) performed by Tio Mayo MD at [facility] MAIN OR ??? PRO REMOVAL DEEP IMPLANT Left 12/01/2020 REMOVAL OF IMPLANT, DEEP, FOOT (WRVU 5.96) performed by Tio Mayo MD at [facility] MAIN OR ??? TUBAL LIGATION ??? XR FLUORO INJECTION DRAINAGE JOINT MD LEFT Left 09/06/2020 XR Fluoro Guided Joint Injection Medium Left 09/06/2020 Janell Shah, HEALTHCARE REPRESENTATIVE [facility] RAD XRAY Social History Tobacco Use [...] GA with LMA/ETT Jeronimo Stanley MD Pager [phone] Region - Other Informed Consent: Anesthesia Screening [...] Sciatic 10 cc Saphenous Jason Sue MD HYDRAULIC PRESS TENDER [facility] documented in this encounter Visit Diagnoses [...] mg documented in this encounter Care Teams Enrober Tender Relationship Specialty Start Date End Date Jennifer Suarez, ROMINA [address] [place] [address] PCP - General Family Medicine 07/14/20 11/20/22 documented as of this encounter
--- OUTSIDE RECORDS SUMMARY | 2024-01-08 15:43 | XMS_ITS | Encounter Summary ---
Author Organization [facility] [place] [address] Care Team Providers Care Mcat Tutor Name Role Phone Ramiro Melo MD Primary Care Provider [phone] Reason for Visit * Reason Onset Date Comments Parking Placard 07/25/2023 Encounter Details Date Type Department Care Team (Late st Contact Info) Description 07/25/2023 [place] [address] Jennifer Stanley, ENGINE TURNER [facility] [address] [place] [address] Parking Placard Social History Tobacco Use Types [...] on filedocumented in this encounter Care Teams Mcat Tutor Relationship Specialty Start Date End Date Ramiro Melo MD [address] [place] [address] PCP - General Family Medicine 11/21/22 documented as of this encounter
--- OUTSIDE RECORDS SUMMARY | 2024-01-08 15:43 | XMS_ITS | Encounter Summary ---
Author Organization [facility] Address [facility] [address] Care Team Providers Care Parcel Post Clerk Name Role Phone Jennifer Suarez APRN Primary Care Provider Reason for Visit * Reason Comments Pre-op Exam Encounter Details Date Type Department Care Team (Late st Contact Info) Description 10/25/2021 1:30 PM EDT Office [place] [address] Francisco Maria MD [facility] [place] [address] Preop examination; Arthritis of left ankle; History [...] Capsule Take 2,000 Units by mouth daily. 4796-4122 units prescribed ??? 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 ARISCAT/CANET Score - estimates the risk of postoperative pulmonary complications as being low ~3.5%. Per the ACS NSQIP calculator I estimated the following. Patient instructions: Take vitamin D3 6495-1069 units daily until end of June. documented in this encounter Plan of Treatment Not on file documented as of this encounter Results * (ABNORMAL) Basic Metabolic Panel (non-fasting) (10/25/2021 2:51 PM EDT) Glucose 96 65 - 199 mg/dL [facility] Comment:Diabetes: >=200 mg/d L plus symptoms Blood Urea Nitrogen 18 8 - 18 mg/dL [facility] Creatinine 0.59(L) 0.70 - 1.20 mg/dL [facility] Sodium 141 135 - 145 mmol/L [facility] Potassium 4.1 3.5 - 5.0 mmol/L [facility] Comment: Please note: ??Patients with WBC >100,000 may have falsely elevated Potassium levels. ??For accurate Potassium quantification in these patients send serum separator tube (gold top) for subsequent determinations. ??Contact the Clinical Chemistry Laboratory if there are any questions. Chloride 104 98 - 107 mmol/L [facility] Carbon Dioxide 27 22 - 31 mmol/L [facility] Anion Gap 10 5 - 15 mmol/L [facility] Calcium 9.4 8.5 - 10.5 mg/dL [facility] Est Glomerular Filtration Rate 108 >=60 mL/min/1. 73 m?? [facility] Comment: This patient's estimated [...] Lab Francisco Maria MD CHEMISTRY ORDERAB LES [facility] [place] [address] documented in this encounter Visit Diagnoses Diagnosis Preop examination Preoperative examination, unspecified Arthritis of left ankle Unspecified arthropathy, ankle and foot History of gastrectomy Acquired absence of organ, stomach documented in this encounter Care Teams Parcel Post Clerk Relationship Specialty Start Date End Date Jennifer Suarez, ROMINA [address] [place] [address] PCP - General Family Medicine 07/14/20 11/20/22 documented as of this encounter
--- OUTSIDE RECORDS SUMMARY | 2024-01-08 15:43 | XMS_ITS | Encounter Summary ---
Author Organization [facility] Address [facility] [place] [address] Care Team Providers Care Mental Health Case Manager Name Role Phone Jennifer Suarez APRN Primary Care Provider [phone] Encounter Details Date Type Department Care Team (Latest Contact Info) Description 10/25/2021 2:30 PM EDT [place] [phone] Preop examination; Arthritis of left ankle; History [...] 2:51 PM EDT) Neutrophil % 63.0 % [facility] Neutrophil Absolute 4.57 1.70 - 6.10 x10(3)/[facility] Lymph % 25.1 % [facility] Lymphocytes Abs 1.8 0.9 - 3.2 x10(3)/[facility] Monocyte % 9.2 % [facility] Monocyte Abs 0.7 0.3 - 0.9 x10(3)/[facility] Eos % 1.4 % [facility] Eosinophils Abs 0.1 0.0 - 0.4 x10(3)/[facility] Basophil % 0.7 % [facility] Baso Absolute 0.0 0.0 - 0.1 x10(3)/[facility] Immature Gran % 0.60 % [facility] Comment: Immature granulocytes(IG's)percentage and absolute count will include metamyelocytes, myelocytes, and promyelocytes. Blood smears from CBCs yielding IG's will be scanned manually for concordance. If this scan disagrees with the automated IG or if promyelocytes are noted, a manual differential will be performed. Immature Gran Absolute 0.04 0.00 - 0.04 x10(3)/[facility] Blood 10/25/2021 2:51 PM EDT 10/25/2021 3:07 PM EDT Narrative Resulting Agency Comment Spec In Lab Francisco Maria MD HEMATOLOGY ORDERA BLES [facility] [place] [address] * (ABNORMAL) Hemogram (10/25/2021 2:51 PM EDT) White Blood Cell 7.2 4.0 - 9.5 x10(3)/[facility] Red Blood Cell 4.75 4.00 - 5.21 x10(6)/[facility] Hemoglobin 12.4 11.7 - 15.5 g/dL [facility] Hematocrit 39.3 35.7 - 45.8 % [facility] Mean Cell Volume 82.7 82.6 - 94.4 fL [facility] Mean Cell Hemoglobin 26.1(L) 27.1 - 32.0 pg [facility] Mean Cell Hemoglobin Concentration 31.6(L) 31.7 - 35.0 g/dL [facility] Platelet 327 145 - 357 x10(3)/[facility] RDW Standard Deviation 43.5 37.0 - 46.0 [facility] RDW coefficient of variation 14.3(H) 11.5 - 14.1 % [facility] Mean Platelet Volume 10.0 7.6 - 12.9 [facility] NRBC% auto 0.0 % [facility] NRBC Absolute 0.000 0.000 - 0.000 x10(3)/[facility] Blood 10/25/2021 2:51 PM EDT 10/25/2021 3:07 PM EDT Narrative Resulting Agency Comment Spec In Lab Francisco Maria MD HEMATOLOGY ORDERA DANIES [facility] [place] [address] * (ABNORMAL) Basic Metabolic Panel (non-fasting) (10/25/2021 2:51 PM EDT) Glucose 96 65 - 199 mg/dL [facility] Comment:Diabetes: >=200 mg/d L plus symptoms Blood Urea Nitrogen 18 8 - 18 mg/dL [facility] Creatinine 0.59(L) 0.70 - 1.20 mg/dL [facility] Sodium 141 135 - 145 mmol/L [facility] Potassium 4.1 3.5 - 5.0 mmol/L [facility] Comment: Please note: ??Patients with WBC >100,000 may have falsely elevated Potassium levels. ??For accurate Potassium quantification in these patients send serum separator tube (gold top) for subsequent determinations. ??Contact the Clinical Chemistry Laboratory if there are any questions. Chloride 104 98 - 107 mmol/L [facility] Carbon Dioxide 27 22 - 31 mmol/L [facility] Anion Gap 10 5 - 15 mmol/L [facility] Calcium 9.4 8.5 - 10.5 mg/dL [facility] Est Glomerular Filtration Rate 108 >=60 mL/min/1. 73 m?? [facility] Comment: This patient's estimated GFR [...] Lab Francisco Maria MD CHEMISTRY ORDERAB LES Performing Organization Address City/State/[facility] Co de Phone Number [facility] [place] [address] documented in this encounter Visit Diagnoses Diagnosis Preop examination Preoperative examination, unspecified Arthritis of left ankle Unspecified arthropathy, ankle and foot History of gastrectomy Acquired absence of organ, stomach documented in this encounter Care Teams Mental Health Case Manager Relationship Specialty Start Date End Date Jennifer Suarez, ROMINA [address] [place] [address] PCP - General Family Medicine 07/14/20 11/20/22 documented as of this encounter
--- OUTSIDE RECORDS SUMMARY | 2024-01-08 15:43 | XMS_ITS | Encounter Summary ---
Author Organization [facility] [place] [address] Care Team Providers Care Dispute Resolution Specialist Name Role Phone Jennifer Suarez APRN Primary Care Provider [phone] Encounter Details Date Type Department Care Team [...] on filedocumented in this encounter Care Teams Dispute Resolution Specialist Relationship Specialty Start Date End Date Jennifer Suarez APRN [address] [place] [address] PCP - General Family Medicine 07/14/20 11/20/22 documented as of this encounter
--- OUTSIDE RECORDS SUMMARY | 2024-01-08 15:43 | XMS_ITS | Encounter Summary ---
Author Organization [facility] Address [facility] [place] [address] Care Team Providers Care Sales Center Associate Name Role Phone Jennifer Suarez APRN Primary Care Provider Reason for Referral * Physical Therapy (Routine) - Closed Specialty Diagnoses / Procedures Referred By Cheri silverman Referred To Contact Physical Therapy Diagnoses Acquired left hindfoot varus Karey De PA [facility] [place] [address] [address] [place] [address] Referral ID Status Reason Start Date Expiration Date V isits Requested Visits Authorized [id number] Closed Evaluate and Treat 09/08/2021 09/08/2022 12 12 Encounter Details Date Type Department Care Team (Late st Contact Info) Description 09/08/2021 Orders [place] [address] Karey De PA [facility] [place] [address] Acquired left hindfoot varus Social History Tobacco [...] as of this encounter Plan of Treatment Scheduled Referrals Name Type Priority Associated Diagnoses Orde r Schedule Referral to Physical Therapy Outpatient Referral Routine Acquired left hindfoot varus Ordered: 09/08/2021 documented as of this encounter Visit Diagnoses Diagnosis Acquired left hindfoot varus documented in this encounter Care Teams Sales Center Associate Relationship Specialty Start Date End Date Jennifer Suarez, MINERALOGY PROFESSOR [address] [place] [address] PCP - General Family Medicine 07/14/20 11/20/22 documented as of this encounter
--- OUTSIDE RECORDS SUMMARY | 2024-01-08 15:43 | XMS_ITS | Encounter Summary ---
Author Organization [facility] Address [facility] [place] [address] Care Team Providers Care Water Valve Mechanic Name Role Phone Jennifer Suarez ROMINA Primary Care Provider [phone] Encounter Details Date Type Department Care Team (Late st Contact Info) Description 02/21/2022 2:00 PM EST Office [place] [address] Jennifer Stanley APRN [facility] [place] [address] History of arthroplasty of left ankle (Primary [...] this encounter Progress Notes * Jennifer Stanley, DARKLIGHT INSPECTOR - 02/21/2022 2:00 PM EST Arthroplasty/Orthopaedic History: [...] of infection. Susan has been ambulating with [employer] and working with PT. I personally reviewed her outside physical therapy progress notes from [facility] provider. She is using NSAID's and Tylenol [...] who have questions please contact the health field care coordinator that requested your imaging first. [...] patients who have questions please contactthe health field care coordinator that requested your imaging first. Jennifer Stanley APRN IMG DX ORDERABLES documented in this encounter Visit Diagnoses Diagnosis History of arthroplasty of left ankle- Primary History of arthroplasty of left ankle documented in this encounter Care Teams Water Valve Mechanic Relationship Specialty Start Date End Date Jennifer Suarez APRN [address] [place] [address] PCP - General Family Medicine 07/14/20 11/20/22 documented as of this encounter
--- OUTSIDE RECORDS SUMMARY | 2024-01-08 15:43 | XMS_ITS | Encounter Summary ---
Author Organization [facility] [place] [address] Care Team Providers Care Electric Frying Pan Repairer Name Role Phone Ramiro Melo MD Primary Care Provider [phone] Reason for Visit * Reason Onset Date Comments Questions 07/05/2023 Encounter Details Date Type Department Care Team (Late st Contact Info) Description 07/05/2023 Telephone [place] [address] Tio Mayo MD [facility] DR [place] [address] Questions Social History Tobacco Use Types Packs/Day [...] Name of person calling : Leydi [facility] Who is the provider: Gael Have you had surgery: Yes If yes : DOS: 11/21/2021 Surgeon: Gael Is there a new injury: No If yes, how did the new injury occur?: Best contact number: [phone] What is the question: Leydi is calling [...] on filedocumented in this encounter Care Teams Electric Frying Pan Repairer Relationship Specialty Start Date End Date Ramiro Melo MD [address] [place] [address] PCP - General Family Medicine 11/21/22 documented as of this encounter
--- OUTSIDE RECORDS SUMMARY | 2024-01-08 15:44 | XMS_ITS | Encounter Summary ---
[place] [address] Care Team Providers Care Sr. Payroll Manager Name Role Phone Jennifer Suarez APRN Primary Care Provider [phone] Encounter Details Date Type Department Care Team (Late st Contact Info) Description 08/09/2020 Orders [place] [address] Kaylen Kourtney E, RMA Left foot pain Social [...] who have questions please contact the health client care coordinator that requested your imaging first. ? Narrative 08/17/2020 3:39 PM EDT EXAMINATION: XR [...] patients who have questions please contactthe health client care coordinator that requested your imaging first. Tio Mayo MD IMG DX ORDERABLES documented in this encounter Visit Diagnoses Diagnosis Left foot pain Pain in limb Left foot pain Pain in limb documented in this encounter Care Teams Sr. Payroll Manager Relationship Specialty Start Date End Date Jennifer Suarez, ROMINA [address] [place] [address] PCP - General Family Medicine 07/14/20 11/20/22 documented as of this encounter
--- OUTSIDE RECORDS SUMMARY | 2024-01-08 15:44 | XMS_ITS | Encounter Summary ---
[place] [address] Care Team Providers Care Sheriff'S Officer Name Role Phone Jennifer Suarez APRN Primary Care Provider [phone] Reason for Referral * Diagnostic Test (Routine) - Closed Specialty Diagnoses / Procedures Referred By Cheri silverman Referred To Contact Radiology Diagnoses Arthritis of left ankle Procedures CT Ankle wo Contrast Left (Generic) Tio Mayo MD [facility] [address] [facility] [address] Referral ID Status Reason Start Date Expiration Date V isits Requested Visits Authorized [id number] Closed Specialty Service Requested 04/20/2021 10/18/2022 1 1 Encounter Details Date Type Department Care Team (Late st Contact Info) Description 04/20/2021 Orders [place] [address] Tio Mayo MD [facility] [place] [address] Arthritis of left ankle (Primary [...] who have questions please contact the health behavioral health care manager that requested your imaging first. ? [...] patients who have questions please contactthe health behavioral health care manager that requested your imaging first. Tio Mayo MD IMG CT ORDERABLES documented in this encounter Visit Diagnoses Diagnosis Arthritis of left ankle- Primary Unspecified arthropathy, ankle and foot Arthritis of left ankle Unspecified arthropathy, ankle and foot documented in this encounter Care Teams Sheriff'S Officer Relationship Specialty Start Date End Date Jennifer Suarez, ROMINA [address] [place] [facility] [place] [address] PCP - General Family Medicine 07/14/20 11/20/22 documented as of this encounter
--- OUTSIDE RECORDS SUMMARY | 2024-01-08 15:44 | XMS_ITS | Encounter Summary ---
Author Organization [facility] Address [facility] [place] [address] Care Team Providers Care Naval Inspector Name Role Phone Jennifer Suarez APRN Primary Care Provider [phone] Encounter Details Date Type Department Care Team (Late st Contact Info) Description 12/31/2020 Telephone [place] [address] Karey De PA [facility] [place] [address] Social History Tobacco Use Types Packs/Day Years [...] get it checked. Please call patient at [phone] documented in this encounter Plan of Treatment Not on file documented as of this encounter Visit Diagnoses Not on filedocumented in this encounter Care Teams Naval Inspector Relationship Specialty Start Date End Date Jennifer Suarez APRN [address] [place] [address] PCP - General Family Medicine 07/14/20 11/20/22 documented as of this encounter
--- OUTSIDE RECORDS SUMMARY | 2024-01-08 15:44 | XMS_ITS | Encounter Summary ---
Author Organization [facility] Address [facility] [place] [address] Care Team Providers Care Director Long Term Care Name Role Phone Jennifer Suarez APRN Primary Care Provider [phone] Reason for Referral * Physical Therapy (Routine) - Closed Specialty Diagnoses / Procedures Referred By Contelida t Referred To Contact Diagnoses Plantar fasciitis Karey De PA [facility] [place] [address] Referral ID Status Reason Start Date Expiration Date V isits Requested Visits Authorized [id number] Closed Evaluate and Treat 06/10/2021 12/07/2021 12 12 Encounter Details Date Type Department Care Team (Late st Contact Info) Description 06/10/2021 3:30 PM EDT Office [place] [address] Karey De PA [facility] [place] [address] Plantar fasciitis Social History Tobacco Use Types [...] NAME: Susan Whitney AGE: 51 y.o. MR#: [id number] DATE OF VISIT: 06/10/2021 CHIEF COMPLAINT: 6 [...] fibromatosis documented in this encounter Care Teams Director Long Term Care Relationship Specialty Start Date End Date Jennifer Suarez APRN [address] [facility] [place] [address] PCP - General Family Medicine 07/14/20 11/20/22 documented as of this encounter
--- OUTSIDE RECORDS SUMMARY | 2024-01-08 15:44 | XMS_ITS | Encounter Summary ---
Author Organization [facility] [place] [address] Care Team Providers Care Clinical Science Consultant Name Role Phone Jennifer Suarez APRN Primary Care Provider [phone] Reason for Visit * Reason Onset Date Comments Disability Paperwork 12/03/2020 Encounter Details Date Type Department Care Team (Late st Contact Info) Description 12/03/2020 Telephone [place] [address] Tio Mayo MD [facility] DR [place] [address] Disability Paperwork Social History Tobacco Use Types [...] filedocumented in this encounter Care Teams Clinical Science Consultant Relationship Specialty Start Date End Date Jennifer Suarez, ROMINA [address] [place] [facility] [address] PCP - General Family Medicine 07/14/20 11/20/22 documented as of this encounter
--- OUTSIDE RECORDS SUMMARY | 2024-01-08 15:44 | XMS_ITS | Encounter Summary ---
Author Organization [facility] Address [facility] [place] [address] Care Team Providers Care Clarification Operator Name Role Phone Jennifer Suarez APRN Primary Care Provider [phone] Reason for Referral * Physical Therapy (Routine) - Closed Specialty Diagnoses / Procedures Referred By Cheri silverman Referred To Contact Physical Therapy Diagnoses Lymphedema of left lower extremity Tio Mayo MD [facility] [place] [address] Cyn Murphy, PT [facility] PHYSICAL MEDICINE & [place] [address] Referral ID Status Reason Start Date Expiration Date V isits Requested Visits Authorized [id number] Closed Evaluate and Treat 07/27/2021 07/27/2022 100 100 Reason for Visit * Reason Onset Date Comments Physical Therapy 07/27/2021 Encounter Details Date Type Department Care Team (Late st Contact Info) Description 07/27/2021 Telephone [place] [address] Tio Mayo MD [facility] [place] [address] Physical Therapy Social History Tobacco Use Types [...] Lymphedema then it needs to go to [facility]. documented in this encounter Plan of Treatment Scheduled Referrals Name Type Priority Associated Diagnoses Orde r Schedule Referral to Physical Therapy Outpatient Referral Routine Lymphedema of left lower extremity Ordered: 07/27/2021 documented as of this encounter Visit Diagnoses Diagnosis Lymphedema of left lower extremity documented in this encounter Care Teams Clarification Operator Relationship Specialty Start Date End Date Jennifer Suarez APRN [address] [place] [address] PCP - General Family Medicine 07/14/20 11/20/22 documented as of this encounter
--- OUTSIDE RECORDS SUMMARY | 2024-01-08 15:44 | XMS_ITS | Encounter Summary ---
Author Organization [facility] [place] [address] Care Team Providers Care Quartz Cutter Name Role Phone Jennifer Suarez APRN Primary Care Provider [phone] Reason for Visit * Reason Comments Leg Pain Red, swollen, painfu l Encounter Details Date Type Department Care Team (Late st Contact Info) Description 07/16/2021 6:18 PM EDT - 07/16/2021 6:51 PM EDT [place] [address] Ramirez Guan MD [facility] [place] [address] Cellulitis of leg, left Discharge Disposition: Home [...] be sent through Care Everywhere. * Cellulitis (Ghanaian) documented in this encounter Medications at Time [...] involve critical care? No Ramirez Guan MD 07/16/21 735 * Alem Duke RN - 07/16/2021 6:27 [...] RN) documented in this encounter Care Teams Quartz Cutter Relationship Specialty Start Date End Date Jennifer Suarez, ROMINA [address] [place] [address] PCP - General Family Medicine 07/14/20 11/20/22 documented as of this encounter
--- OUTSIDE RECORDS SUMMARY | 2024-01-08 15:44 | XMS_ITS | Encounter Summary ---
Author Organization [facility] Address [facility] [place] [address] Care Team Providers Care Waste Cotton Cleaner Name Role Phone Jennifer Suarez APRN Primary Care Provider [phone] Reason for Visit * Auth/Cert Specialty Diagnoses [...] Expiration Date Visits Re quested Visits Authorized [id number] 1 1 Encounter Details Date Type Department Care Team (Latest Contact Info) Description 12/01/2020 5:39 AM EDT - 12/01/2020 11:46 AM EDT Hospital En[place] [address] Tio Covarrubias MD [facility] [place] [address] Discharge Disposition: Home Social History Tobacco Use [...] can affect judgment and reaction time. Contact yousuron with any questions/concerns. Medications: 1. The pain medication you are on can cause constipation so increase your intake of fluids and fiber while you are on them. You can take the stool softener, Senakot, that was ordered to facilitate a bowel movement. If needed an ukcx-dxo-zdvkvuu medication, MiraLAX can also be used to [...] control your pain. Call your doctor at [phone] if: You have a fever > 101.5 or experience chills Increased discharge from the incision Any redness or swelling around the incision Increased pain or change in the pain that is not controlled by your pain medications. FOLLOW UP APPOINTMENTS: 1. You will have follow up appointments [place] [facility] as indicated in Future Appointments and Orders. [...] Center 12/21/2020 4:30 PM Tio Covarrubias MD [facility] [place] [address] [place] [address] documented in this encounter Medications at Time [...] Covarrubias MD - 12/01/2020 8:01 AM EDT [facility] Operative Note Patient Name: Susan Whitney : [id number] MR#: [id number] Case Date: 12/01/2020 Surgeon: Surgeon(s) and Role: [...] Implant Name Type Inv. Item Serial No. Bridge Painter Helper Lot No. LRB No. Used Action GRAFT BONE FILLER [id number] CHIPS CANC PRESERVON READIGRAFT ([id number]) (AutoReq) - [id number] IMPLANTS GRAFT BONE FILLER [id number] CHIPS CANC PRESERVON READIGRAFT ([id number]) (AutoReq) [facility] HE Left 1 Implanted STAPLE [id number] COMP NITINOL SPEED TITAN ([id number]) (AutoReq) - [id number] IMPLANTS STAPLE [id number] COMP NITINOL SPEED TITAN (3696220) (AutoReq) [employer] [facility] GABY [id number] Left 1 Implanted STAPLE [id number] COMP NITINOL SPEED TITAN (6987200) (AutoReq) - [id number] IMPLANTS STAPLE [id number] COMP NITINOL SPEED TITAN (5031855) (AutoReq) [employer] [facility] GABY [id number] Left 1 Implanted K WIRE FIX 0.417Q0DP TROCAR POINT THREADED BT END SS (3717293) - [id number] IMPLANTS K WIRE FIX 0.631Q2YE TROCAR POINT THREADED BTH END SS (9000903) [employer] - MI[employer]RE Left 1 Implanted and Explanted PIN FIX 7/64X9IN TROCAR POINT SGL END SS JONNY (6513088) - [id number] IMPLANTS PIN FIX 7/25U1JBEUXRRI POINT SGL END SS STEINMAN[place] (9783858) [employer] - MI[employer]RE Left 1 Implanted and Explanted PIN FIX 5/32X9IN TROCAR POINT SGL END SS [place] (8349493) - [id number] IMPLANTS PIN FIX 5/20L4CVHFGRGN POINT SGL END SS STEINMANN (0556906) [employer] - MICROAIRE Left [...] subtalar screws, hindfoot varus Osteotomy Heel Bone (73696) 12/01/2020 7:34 AM EDT retained left subtalar screws, hindfoot varus Removal Deep Implant (62145) 12/01/2020 7:34 AM EDT retained left subtalar [...] RN) documented in this encounter Care Teams Waste Cotton Cleaner Relationship Specialty Start Date End Date Jennifer Suarez, ROMINA [address] [place] [address] PCP - General Family Medicine 07/14/20 11/20/22 documented as of this encounter
--- OUTSIDE RECORDS SUMMARY | 2024-01-08 15:44 | XMS_ITS | Encounter Summary ---
Author Organization [facility] Address [facility] [place] [address] Care Team Providers Care Garment Examiner Name Role Phone Jennifer Suarez APRN Primary Care Provider [phone] Reason for Visit * Auth/Cert Specialty Diagnoses [...] Expiration Date Visits Re quested Visits Authorized [id number] 1 1 Encounter Details Date Type Department Care Team (Late st Contact Info) Description 12/01/2020 7:30 AM EDT - 12/01/2020 9:15 AM EDT [place] [address] Tio Covarrubias MD [facility] DR [place] [address] REMOVAL OF IMPLANT, DEEP, FOOT (WRVU 5.96) [...] can affect judgment and reaction time. Contact [facility] with any questions/concerns. Medications: 1. The pain medication you are on can cause constipation so increase your intake of fluids and fiber while you are on them. You can take the stool softener, Senakot, that was ordered to facilitate a bowel movement. If needed an krnn-mpd-pvexphd medication, MiraLAX can also be used to [...] control your pain. Call your doctor at [phone] if: You have a fever > 101.5 or experience chills Increased discharge from the incision Any redness or swelling around the incision Increased pain or change in the pain that is not controlled by your pain medications. FOLLOW UP APPOINTMENTS: 1. You will have follow up appointments at [facility] as indicated in Future Appointments and Orders. [...] Center 12/21/2020 4:30 PM Tio Covarrubias MD [facility] documented in this encounter Medications at Time [...] proceed with operative treatment. Tio Covarrubias MD [place] [facility] Attending documented in this encounter Miscellaneous Notes * Op Note - Tio Covarrubias MD - 12/01/2020 8:01 AM EDT [facility] Operative Note Patient Name: Susan Whitney : [id number] MR#: [id number] Case Date: 12/01/2020 Surgeon: Surgeon(s) and Role: [...] Implant Name Type Inv. Item Serial No. Linux Network Engineer Lot No. LRB No. Used Action GRAFT BONE FILLER [id number] CHIPS CANC PRESERVON READIGRAFT ([id number]) (AutoReq) - [id number] IMPLANTS GRAFT BONE FILLER [id number] CHIPS CANC PRESERVON READIGRAFT (6712399) (AutoReq) [facility] HE Left 1 Implanted STAPLE [id number] COMP NITINOL SPEED TITAN (0604724) (AutoReq) - [id number] IMPLANTS STAPLE [id number] COMP NITINOL SPEED TITAN (4667195) (AutoReq) [employer] [facility] GABY [id number] Left 1 Implanted STAPLE [id number] COMP NITINOL SPEED TITAN (4021273) (AutoReq) - [id number] IMPLANTS STAPLE [id number] COMP NITINOL SPEED TITAN (6283699) (AutoReq) [employer] [facility] GABY [id number] Left 1 Implanted K WIRE FIX [id number] TROCAR POINT THREADED BTH END SS (1728811) - [id number] IMPLANTS K WIRE FIX 0.310O3DZ TROCAR POINT THREADED BTH END SS (6431742) [employer] - MICRO[employer]RE Left 1 Implanted and Explanted PIN FIX 7/64X9IN TROCAR POINT SGL END SS STE[place] (2152569) - [id number] IMPLANTS PIN FIX 7/87C1AHXCVMJO POINT SGL END SS STE[place] (4734877) [employer] - MI[employer]RE Left 1 Implanted and Explanted PIN FIX 5/32X9IN TROCAR POINT SGL END SS [place] (2902434) - [id number] IMPLANTS PIN FIX 5/47X9GDJKCSLQ POINT SGL END SS STE[place] (2371115) [employer] - MICROAIRE Left [...] subtalar screws, hindfoot varus Osteotomy Heel Bone (44398) 12/01/2020 7:34 AM EDT retained left subtalar screws, hindfoot varus Removal Deep Implant (42808) 12/01/2020 7:34 AM EDT retained left subtalar [...] RN) documented in this encounter Care Teams Garment Examiner Relationship Specialty Start Date End Date Jennifer Suarez APRN [address] [place] [address] PCP - General Family Medicine 07/14/20 11/20/22 documented as of this encounter
--- OUTSIDE RECORDS SUMMARY | 2024-01-08 15:44 | XMS_ITS | Encounter Summary ---
Author Organization [facility] Address [facility] [place] [address] Care Team Providers Care Character Actor Name Role Phone Jennifer Suarez APRN Primary Care Provider [phone] Encounter Details Date Type Department Care Team (Late st Contact Info) Description 08/29/2021 Orders [place] [address] Karey De PA [facility] [place] [address] Lymphedema of left lower extremity; Acquired left [...] varus documented in this encounter Care Teams Character Actor Relationship Specialty Start Date End Date Jennifer Suarez, ROMINA [address] [place] [place] [address] PCP - General Family Medicine 07/14/20 11/20/22 documented as of this encounter
--- OUTSIDE RECORDS SUMMARY | 2024-01-08 15:44 | XMS_ITS | Encounter Summary ---
Author Organization [place] [address] Care Team Providers Care Customer Specialist Name Role Phone Jennifer Suarez APRN Primary Care Provider Reason for Visit * Reason Comments Follow-up 12-01-20 left removal of implant Encounter Details Date Type Department Care Team (Late st Contact Info) Description 12/21/2020 4:30 PM EDT Office [place] [address] Tio Mayo MD [facility] [place] [address] Arthritis of left ankle; Acquired left hindfoot [...] Gael documented in this encounter Care Teams Customer Specialist Relationship Specialty Start Date End Date Jennifer Suarez, UNDERGROUND ELECTRICIAN [address] [place] [place] [address] PCP - General Family Medicine 07/14/20 11/20/22 documented as of this encounter
--- OUTSIDE RECORDS SUMMARY | 2024-01-08 15:44 | XMS_ITS | Encounter Summary ---
Author Organization Formerly [facility] Address [facility] [place] [address] Care Team Providers Care Erp Project Manager Name Role Phone Jennifer Suarez APRN Primary Care Provider [phone] Reason for Visit * Physical Therapy (Routine) - Closed Specialty Diagnoses / Procedures Referred By Cheri silverman Referred To Contact Physical Therapy Diagnoses Lymphedema of left lower extremity Tio Mayo MD [facility] [place] [address] Marsha Murphy, PT [facility] PHYSICAL MEDICINE & [place] [address] Referral ID Status Reason Start Date Expiration Date V isits Requested Visits Authorized [id number] Closed Evaluate and Treat 07/27/2021 07/27/2022 100 100 Encounter Details Date Type Department Care Team (Late st Contact Info) Description 08/26/2021 2:00 PM EDT Office [place] [address] Marsha Murphy, PT [facility] PHYSICAL MEDICINE & [place] [address] Hereditary lymphedema Social History Tobacco Use Types [...] on. Had bought compression knee highs at [employer] 12-15 mmhg, They wrinkle and cut in [...] for primary subtalar osteoarthritis in 2016 in [place] followed byleft hindfoot varus s/p lateral closing [...] care : lives with [facility] [employer], in [place], [place]. 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 Current Exercise: none [...] be a size average large with 1 twister tender paper strap in the calf SL foot size medium, regular length with 1 twister tender paper strap Color: black Farrow Hybrid sock size: Standard Short stretch bandages applied to left L/E to knee. Pt and SO Ye instructed how to self bandage and video sent via [facility] Compression bandage precautions: pt advised to [...] preparation for ankle surgery Nov 21 Therapy Care Home Goals 8 weeks 1. maintain reduction in [...] legs documented in this encounter Care Teams Erp Project Manager Relationship Specialty Start Date End Date Jennifer Suarez, ROM[address] [place] [address] PCP - General Family Medicine 07/14/20 11/20/22 documented as of this encounter
--- OUTSIDE RECORDS SUMMARY | 2024-01-08 15:44 | XMS_ITS | Encounter Summary ---
Author Organization [facility] [place] [address] Care Team Providers Care Oil Fire Specialist Name Role Phone Jennifer Suarez APRN Primary Care Provider [phone] Reason for Referral * Physical Therapy (Routine) - Duplicate Referral Specialty Diagnoses / Procedures Referred By Cheri silverman Referred To Contact Physical Therapy Diagnoses Arthritis of left ankle Tio Mayo MD [facility] [place] [address] Cyn Murphy, PT [facility] PHYSICAL MEDICINE & [place] [address] Referral ID Status Reason Start Date Expiration Date Visits Requested Visits Authorized [id number] Duplicate Referral Evaluate and Treat 07/26/2021 07/26/2022 12 12 Reason for Visit * Reason Comments Follow Up Surgery Ankle ARTHROPLASTY Encounter Details Date Type Department Care Team (Late st Contact Info) Description 07/26/2021 4:30 PM EDT Office Visit [place] [address] Tio Mayo MD [facility] [place] [address] Arthritis of left ankle (Primary Dx); Acquired [...] varus s/p lateral closing wedge osteotomy 12/01/[address] [facility] History of present illness: Susan Whitney is [...] Gael documented in this encounter Care Teams Oil Fire Specialist Relationship Specialty Start Date End Date Jennifer Suarez, ROMINA [address] [facility] [place] [address] PCP - General Family Medicine 07/14/20 11/20/22 documented as of this encounter
--- OUTSIDE RECORDS SUMMARY | 2024-01-08 15:44 | XMS_ITS | Encounter Summary ---
Author Organization [facility] [place] [address] Care Team Providers Care Gasoline Pump Mechanic Name Role Phone Jennifer Suarez APRN Primary Care Provider [phone] Reason for Visit * Reason Comments Follow-up Pre-Op Encounter Details Date Type Department Care Team (Late st Contact Info) Description 11/30/2020 1:00 PM EDT Office [place] [address] Tio Mayo MD [facility] [place] [address] Arthritis of left ankle; Acquired left hindfoot [...] varus documented in this encounter Care Teams Gasoline Pump Mechanic Relationship Specialty Start Date End Date Jennifer Suarez APRN [address] [place] [address] PCP - General Family Medicine 07/14/20 11/20/22 documented as of this encounter
--- OUTSIDE RECORDS SUMMARY | 2024-01-08 15:44 | XMS_ITS | Encounter Summary ---
Author Organization [facility] [place] [address] Care Team Providers Care Industrial Controller Name Role Phone Jennifer Suarez APRN Primary Care Provider [phone] Reason for Referral * Diagnostic Test (Routine) - Closed Specialty Diagnoses / Procedures Referred By Cheri silverman Referred To Contact Radiology Diagnoses Left foot pain Procedures XR Fluoro Guided Joint Injection Medium Left Freddie Mtz MD [facility] [address] [facility] Rad Xray [address] [place] [address] [place] [address] Referral ID Status Reason Start Date Expiration Date V isits Requested Visits Authorized [id number] Closed Specialty Service Requested 08/17/2020 02/17/2022 1 1 Reason for Visit * Diagnostic Test (Routine) - Closed Specialty Diagnoses / Procedures Referred By Cheri silverman Referred To Contact Radiology Diagnoses Left foot pain Procedures XR Fluoro Guided Joint Injection Medium Left Freddie Mtz MD [facility] [place] [address] [facility] Rad Xray [address] [place] [address] [place] [address] Referral ID Status Reason Start Date Expiration Date V isits Requested Visits Authorized [id number] Closed Specialty Service Requested 08/17/2020 02/17/2022 1 1 Encounter Details Date Type Department Care Team (Latest Contact Info) Description 09/06/2020 3:21 PM EDT - 09/06/2020 11:59 PM EDT Hospital Encounter XRay at [address] [place] [address] Tio Mayo MD [facility] [place] [address] Left foot pain Discharge Disposition: Home Social [...] Discharge Instructions * Patient Instructions* Aliza James S - 09/06/2020 3:52 PM EDT Post Injection [...] telephone the diagnostic section of radiology at [phone]. documented in this encounter Medications at Time of Discharge Medication Sig Dispensed Refills Start Date End Date albuteroL 90 mcg/actuation HFA Aerosol Inhaler INHALE ONE TO TWO PUFFS BY MOUTH EVERY 4 TO 6 HOURS NEEDED 06/10/2020 loratadine (Claritin) 10 mg Tablet Take 10 mg by mouth daily. 11/18/2021 acetaminophen (Tylenol) 500 mg Tablet Take by mouth every 6 hours as needed. 12/04/2017 11/22/2021 gabapentin (Neurontin) 300 mg Capsule Take by mouth as needed. 12/25/2019 11/21/2022 aspirin EC 81 mg Tablet, Delayed Release (E.C.) Take by mouth. 06/29/2020 12/01/2020 multivitamin Capsule Take 1 capsule by mouth [...] Diagnosis Comments XR FLUORO INJECTION DRAINAGE JOINT MD OSWALDO Routine 09/06/2020 4:02 PM EDT Left foot [...] have questions please contact the health care worker that requested your imaging first. ? Electronically signed by: Janell Shah [facility] ([phone]), at 09/07/2020 10:30 AM Narrative 09/07/2020 10:30 AM EDT HISTORY: Left ankle arthritis LEFT ANKLE TIBIOTALAR JOINT ??INJECTION WITH ANESTHETIC ONLY UNDER FLUOROSCOPY TECHNIQUE: After an extensive conversation with the patient regarding risks and benefits, oral and written consent were obtained. A pre- procedural time-out was performed, including review of the patient's relevant electronic medical record and allergies, as per [facility] protocol. The patient was placed supine on [...] relevant electronic medicalrecord and allergies, as per [facility] protocol. The patient was placed supine on [...] who have questions please contactthe health care worker that requested your imaging first. Tio Mayo [...] 10 mL, Intra-articular, ONCE, 1 dose, On 09/06/20 at 1630, Warning Vesicant/Irritant Medication , Routine Given 09/06/2020 4:30 PM EDT 3 mLs ROpivacaine (PF) 0.5% (5 mg/mL) 20 mg, lidocaine (pf) 1% (10 mg/mL) 40 mg injection (Radiology Prep) Intra-articular, ONCE, 1 dose, On 09/06/20 at 1615, For Radiology Use Only: Medium-Large Joint Injection Given 09/06/2020 4:15 PM EDT documented in this encounter Care Teams Industrial Controller Relationship Specialty Start Date End Date Jennifer Suarez, ELEMENTARY ELL TEACHER [address] [place] [address] PCP - General Family Medicine 07/14/20 11/20/22 documented as of this encounter
--- OUTSIDE RECORDS SUMMARY | 2024-01-08 15:44 | XMS_ITS | Encounter Summary ---
Author Organization [facility] Address [facility] [place] [address] Care Team Providers Care Delivery Merchandiser Name Role Phone Jennifer Suarez APRN Primary Care Provider [phone] Encounter Details Date Type Department Care Team (Late st Contact Info) Description 07/16/2021 [place] [address] Karey De PA [facility] DR [place]THOPAEDIC [place] [address] Acquired left hindfoot varus s/p lateral closing [...] Gael documented in this encounter Care Teams Delivery Merchandiser Relationship Specialty Start Date End Date Jennifer Suarez, ROMINA [address] [place] [address] PCP - General Family Medicine 07/14/20 11/20/22 documented as of this encounter
--- OUTSIDE RECORDS SUMMARY | 2024-01-08 15:44 | XMS_ITS | Encounter Summary ---
Author Organization [facility] [place] [address] Care Team Providers Care Warehouse Team Member Name Role Phone Jennifer Suarez APRN Primary Care Provider Reason for Visit * Reason Onset Date Comments Disability Paperwork 11/15/2020 Encounter Details Date Type Department Care Team (Late st Contact Info) Description 11/15/2020 Telephone [place] [address] Tio Mayo MD [facility] [place] [address] Disability Paperwork Social History Tobacco Use Types [...] on filedocumented in this encounter Care Teams Warehouse Team Member Relationship Specialty Start Date End Date Jennifer Suarez, ROMINA [address] [place] [place] [address] PCP - General Family Medicine 07/14/20 11/20/22 documented as of this encounter
--- OUTSIDE RECORDS SUMMARY | 2024-01-08 15:44 | XMS_ITS | Encounter Summary ---
Author Organization Formerly [facility] Address [facility] [place] [address] Care Team Providers Care Animal Surgeon Name Role Phone Jennifer Suarez APRN Primary Care Provider [phone] Reason for Visit * Reason Comments Follow Up Surgery L FOOT/ANKLE PAIN/ H O L ANKLE FUSION 2016, discuss surg options Encounter Details Date Type Department Care Team (Late st Contact Info) Description 10/12/2020 4:00 PM EDT Office [place] [address] Tio Mayo MD [facility] [place] [address] Arthritis of left ankle (Primary Dx) Social [...] foot documented in this encounter Care Teams Animal Surgeon Relationship Specialty Start Date End Date Jennifer Suarez, TAX ADVISOR [address] [place] [address] PCP - General Family Medicine 07/14/20 11/20/22 documented as of this encounter
--- OUTSIDE RECORDS SUMMARY | 2024-01-08 15:44 | XMS_ITS | Encounter Summary ---
Author Organization [facility] Address [facility] [place] [address] Care Team Providers Care Technical Program Manager Name Role Phone Jennifer Suarez APRN Primary Care Provider [phone] Reason for Visit * Reason Comments Follow Up Surgery DOS 12-01-20 left carlos navarro of implant Encounter Details Date Type Department Care Team (Late st Contact Info) Description 12/31/2020 11:00 AM EDT Office [place] [address] Karey De PA [facility] [place] [address] Acquired left hindfoot varus s/p lateral closing [...] NAME: Susan Whitney AGE: 50 y.o. MR#: [id number] DATE OF VISIT: 12/31/2020 CHIEF COMPLAINT: Wound [...] year-old female one month wound check 12/01/20 (Gael) LEFT YEE 2 [...] Gael documented in this encounter Care Teams Technical Program Manager Relationship Specialty Start Date End Date Jennifer Suarez, ROMINA [address] [place] [address] PCP - General Family Medicine 07/14/20 11/20/22 documented as of this encounter
--- OUTSIDE RECORDS SUMMARY | 2024-01-08 15:44 | XMS_ITS | Encounter Summary ---
Author Organization [facility] Address [facility] [place] [address] Care Team Providers Care Bilingual Manager Name Role Phone Jennifer Suarez APRN Primary Care Provider [phone] Encounter Details Date Type Department Care Team (Late st Contact Info) Description 12/02/2020 [place] [address] Gregoria Buchanan MD [facility] [place] [address] Social History Tobacco Use Types Packs/Day Years [...] on filedocumented in this encounter Care Teams Bilingual Manager Relationship Specialty Start Date End Date Jennifer Suarez, DEBONE SUPERVISOR [address] [place] [address] PCP - General Family Medicine 07/14/20 11/20/22 documented as of this encounter
--- OUTSIDE RECORDS SUMMARY | 2024-01-08 15:44 | XMS_ITS | Encounter Summary ---
Author Organization [facility] [place] [address] Care Team Providers Care Colorist Formulator Name Role Phone Jennifer Suarez APRN Primary Care Provider [phone] Reason for Visit * Reason Onset Date Comments Disability Paperwork 01/27/2021 Encounter Details Date Type Department Care Team (Late st Contact Info) Description 01/27/2021 Telephone [place] [address] Tio Mayo MD [facility] [place] [address] Disability Paperwork Social History Tobacco Use Types [...] on filedocumented in this encounter Care Teams Colorist Formulator Relationship Specialty Start Date End Date Jennifer Suarez APRN [address] [place] [address] PCP - General Family Medicine 07/14/20 11/20/22 documented as of this encounter
--- OUTSIDE RECORDS SUMMARY | 2024-01-08 15:44 | XMS_ITS | Encounter Summary ---
Author Organization [facility] Address [facility] [place] [address] Care Team Providers Care Tree Inspector Name Role Phone Jennifer Suarez APRN Primary Care Provider [phone] Encounter Details Date Type Department Care Team (Latest Contact Info) Description 04/01/2021 12:32 PM EST - 04/01/2021 11:59 PM [facility] Hospital Encounter XRay at [address] [place] [address] Tio Mayo MD [facility] [address] Acquired left hindfoot varus Discharge Disposition: Home [...] have questions please contact the health career development associate that requested your imaging first. ? [...] who have questions please contactthe health career development associate that requested your imaging first. Tio Mayo MD IMG DX ORDERABLES documented in this encounter Visit Diagnoses Diagnosis Acquired left hindfoot varus documented in this encounter Care Teams Tree Inspector Relationship Specialty Start Date End Date Jennifer Suarez, ROMINA [address] [place] [address] PCP - General Family Medicine 07/14/20 11/20/22 documented as of this encounter
--- OUTSIDE RECORDS SUMMARY | 2024-01-08 15:44 | XMS_ITS | Encounter Summary ---
Author Organization [facility] [place] [address] Care Team Providers Care Incident Coordinator Name Role Phone Jeninfer Suarez APRN Primary Care Provider [phone] Reason for Visit * Reason Comments Follow Up Surgery Acquired left hindfo ot varus s/p lateral closing wedge osteotomy 12/01/20 Gael Encounter Details Date Type Department Care Team (Late st Contact Info) Description 01/07/2021 4:30 PM EDT Office [place] [address] Karey De PA [facility] [place] [address] Acquired left hindfoot varus Social History Tobacco [...] NAME: Susan Whitney AGE: 50 y.o. MR#: [id number] DATE OF VISIT: 01/07/2021 CHIEF COMPLAINT: 5 [...] who have questions please contact the health janitor caretaker that requested your imaging first. ? Electronically signed by: Yony Mercado MD, [facility] ([phone]), at 02/08/2021 1:46 PM Narrative 02/08/2021 1:46 [...] patients who have questions please contactthe health janitor caretaker that requested your imaging first. 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
--- OUTSIDE RECORDS SUMMARY | 2024-01-08 15:44 | XMS_ITS | Encounter Summary ---
Author Organization [facility] Address [facility] [place] [address] Care Team Providers Care Rope Silica Machine Operator Name Role Phone Jennifer Suarez APRN Primary Care Provider [phone] Reason for Referral * Physical Therapy (Routine) - Closed Specialty Diagnoses / Procedures Referred By Cheri silverman Referred To Contact Diagnoses Acquired left hindfoot varus Karey De PA [facility] [place] [address] Referral ID Status Reason Start Date Expiration Date V isits Requested Visits Authorized [id number] Closed Evaluate and Treat 02/08/2021 08/07/2021 1 1 Reason for Visit * Reason Comments Follow Up Surgery s/p YEE L Subtalar S crew DOS 12/01/2020 Encounter Details Date Type Department Care Team (Late st Contact Info) Description 02/08/2021 2:30 PM EST Office [place] [address] Karey De PA [facility] [place] [address] Acquired left hindfoot varus Social History Tobacco [...] NAME: Susan Whitney AGE: 50 y.o. MR#: [id number] DATE OF VISIT: 02/08/2021 CHIEF COMPLAINT: 10 [...] who have questions please contact the health direct care counselor that requested your imaging first. ? Narrative [...] LEFT (GENERIC) CLINICAL HISTORY: 12/01/20 (Gael) LEFT EYE 2 screws, Lateralizing closingwedge osteotomy of the [...] patients who have questions please contactthe health direct care counselor that requested your imaging first. 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
--- OUTSIDE RECORDS SUMMARY | 2024-01-08 15:44 | XMS_ITS | Encounter Summary ---
Author [facility] [place] [address] Care Team Providers Care Oracle Programmer Analyst Name Role Phone Jennifer Suarez APRN Primary Care Provider [phone] Reason for Visit * Reason Onset Date Comments Disability Paperwork 03/28/2021 Encounter Details Date Type Department Care Team (Late st Contact Info) Description 03/28/2021 Telephone [place] [address] Tio Mayo MD [facility] [place] [address] Disability Paperwork Social History Tobacco Use Types [...] for review/signature: Signed Faxed/Mailed/MY PORTAL/Pick-up Date: Faxed 03/29/21 * Telephone Encounter - Sinai Padilla - 03/28/2021 3:12 PM EST Date Received: 03/28/21 Insurance/Disability Company Name: [employer] documented in this encounter Plan of Treatment Not on file documented as of this encounter Visit Diagnoses Not on filedocumented in this encounter Care Teams Oracle Programmer Analyst Relationship Specialty Start Date End Date Jennifer Suarez, ROMINA [address] [place] [address] PCP - General Family Medicine 07/14/20 11/20/22 documented as of this encounter
--- OUTSIDE RECORDS SUMMARY | 2024-01-08 15:44 | XMS_ITS | Encounter Summary ---
Author Organization [facility] Address [facility] [place] [address] Care Team Providers Care Work Adjustment Instructor Name Role Phone Jennifer Suarez APRN Primary Care Provider Reason for Referral * Diagnostic Test (Routine) - Closed Specialty Diagnoses / Procedures Referred By Contac t Referred To Contact Radiology Diagnoses Left foot pain Procedures XR Fluoro Guided Joint Injection Medium Left Freddie Mtz MD [facility] [place] [address] [facility] Rad Xray [address] [place] [address] [place] [address] Referral ID Status Reason Start Date Expiration Date V isits Requested Visits Authorized [id number] Closed Specialty Service Requested 08/17/2020 02/17/2022 1 1 Reason for Visit * Reason Comments Establish Care Left foot/ankle pain HO Left Ankle Fusion 2017 KATY * Consultation (Routine) - Closed Specialty Diagnoses / Procedures Referred By Contac t Referred To Contact Orthopaedics Diagnoses LEFT FOOT/ANKLE PAIN/ HO L ANKLE FUSION 2017/ KATY Chung Lucas MD [address] [place] [address] Tio Mayo MD [facility] [place] [address] Referral ID Status Reason Start Date Expiration Date V isits Requested Visits Authorized [id number] Closed Consult, Test & Treat Connection Center PCP Updated and/or Approved 07/14/2020 07/14/2021 6 6 Encounter Details Date Type Department Care Team (Late st Contact Info) Description 08/17/2020 4:00 PM EDT Office [place] [address] Tio Mayo MD [facility] DR [place] [address] Left foot pain Social History Tobacco Use [...] PM EDT Orthopaedic Office Note Attending: Dr. Mayo Susan Whitney is a 50 y.o. female who presents to see us in consultation today for left ankle painat the request of: Chung Lucas MD [address] [place] [address] History of Present Illness: Susan Whitney is a 50 y.o. female who presents with several months of the atraumatic onset of progressive left ankle pain after rolling her ankle in the late fall 2019. 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 The patient did very well after that [...] have questions please contact the health career information specialist that requested your imaging first. ? Narrative 09/07/2020 10:30 AM EDT HISTORY: Left ankle arthritis LEFT ANKLE TIBIOTALAR JOINT ??INJECTION WITH ANESTHETIC ONLY UNDER FLUOROSCOPY TECHNIQUE: After an extensive conversation with the patient regarding risks and benefits, oral and written consent were obtained. A pre- procedural time-out was performed, including review of the patient's relevant electronic medical record and allergies, as per [facility] protocol. The patient was placed [...] relevant electronic medicalrecord and allergies, as per [facility] protocol. The patient was placed [...] who have questions please contactthe health career information specialist that requested your imaging first. Tio Mayo MD IMG FLUORO ORDERABLE S documented in this encounter Visit Diagnoses Diagnosis Left foot pain Pain in limb Left foot pain Pain in limb documented in this encounter Care Teams Work Adjustment Instructor Relationship Specialty Start Date End Date Jennifer Suarez APRN [address] [place] [address] PCP - General Family Medicine 07/14/20 11/20/22 documented as of this encounter
--- OUTSIDE RECORDS SUMMARY | 2024-01-08 15:44 | XMS_ITS | Encounter Summary ---
Author Organization [facility] Address [facility] [place] [address] Care Team Providers Care Engineering Mathematician Name Role Phone Jennifer Suarez APRN Primary Care Provider [phone] Encounter Details Date Type Department Care Team (Latest Contact Info) Description 08/17/2020 2:33 PM EDT - 08/17/2020 11:59 PM EDT Hospital Encounter XRay at [address] [place] [address] Tio Mayo MD [facility] [place] [address] Left foot pain Discharge Disposition: Home Social [...] who have questions please contact the health urgent care physician that requested your imaging first. ? Electronically signed by: AMOL MOSHER DO, [facility] ([phone]), at 08/17/2020 3:39 PM Narrative 08/17/2020 3:39 PM EDT EXAMINATION: XR FOOT/ANKLE 5 VIEWS LEFT CLINICAL HISTORY: s/p left ankle fusion ~2017 TECHNIQUE: 5 views LEFT foot and ankle [...] patients who have questions please contactthe health urgent care physician that requested your imaging first. Electronically signed by: AMOL MOSHER DO, [facility]([phone]), at 08/17/2020 3:39 PM Tio Mayo MD IMG DX ORDERABLES documented in this encounter Visit Diagnoses Diagnosis Left foot pain Pain in limb documented in this encounter Care Teams Engineering Mathematician Relationship Specialty Start Date End Date Jennifer Suarez APRN [address] [place] [address] PCP - General Family Medicine 07/14/20 11/20/22 documented as of this encounter
--- OUTSIDE RECORDS SUMMARY | 2024-01-08 15:44 | XMS_ITS | Encounter Summary ---
Author Organization Counts Include [facility] Address [facility] [place] [address] Care Team Providers Care Telesales Agent Name Role Phone Jennifer Suarez APRN Primary Care Provider Reason for Visit * Reason Onset Date Comments Appointment 08/11/2020 Encounter Details Date Type Department Care Team (Late st Contact Info) Description 08/11/2020 [place] [address] Dayana Ahuja OD [facility] [place] [address] Appointment Social History Tobacco Use Types Packs/Day [...] VM msg for pt to call to [facility]: At time of call avail appts w [...] on filedocumented in this encounter Care Teams Telesales Agent Relationship Specialty Start Date End Date Jennifer Suarez, ROMINA [address] [place] [address] PCP - General Family Medicine 07/14/20 11/20/22 documented as of this encounter
--- OUTSIDE RECORDS SUMMARY | 2024-01-08 15:44 | XMS_ITS | Encounter Summary ---
Author Organization [facility] [place] [address] Care Team Providers Care Pre Press Manager Name Role Phone Jennifer Suarez APRN Primary Care Provider [phone] Reason for Visit * Reason Comments Blurred Vision Encounter Details Date Type Department Care Team (Late st Contact Info) Description 08/10/2020 2:20 PM EDT Office Visit Ophthalmology [place] [address] Dayana Ahuja, OD [facility] [place] [address] Posterior vitreous detachment of left eye; Astigmatism [...] ??? Astigmatism of both eyes with presbyopia Susna Sancheshenny is a 50 y.o. 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
--- OUTSIDE RECORDS SUMMARY | 2024-01-08 15:44 | XMS_ITS | Encounter Summary ---
Author [facility] [place] [address] Care Team Providers Care Skip Operator Name Role Phone Jennifer Suarez APRN Primary Care Provider [phone] Reason for Visit * Reason Comments Cellulitis Encounter Details Date Type Department Care Team (Late st Contact Info) Description 07/19/2021 12:55 PM EDT - 07/19/2021 3:05 PM EDT [place] [address] Angie Saunders MD [facility] [place] [address] Jenna Rosa MD [facility] [place] [address] Edema of lower extremity (Primary Dx) Discharge [...] as of this encounter ED Notes * aLila Clemons MD - 07/19/2021 2:26 PM EDT ED Resident Note HPI: Too Baez is a 51 y.o. female who was seen in the ED on 07/16 four left lower extremity erythema, edema and pain from the ankle to the mid calf discharged on Keflex for cellulitis who presents tot Emergency Department [...] up plan. Laila Clemons MD Resident 07/19/21 3771 Associated attestation - Angie Saunders MD - [...] MD - 07/19/2021 12:38 PM EDT Telehealth [id number] Note: The following documentation is provided in [...] the Emergency Department. Rigoberto Gregorio MD 07/19/21 124 documented in this encounter Miscellaneous Notes * [...] Text Report Department: Vascular Surgery Lab Patient: [id number] (TOO BAEZ) CPT: 29006 Referring Physician: ANGIE SAUNDERS ?? Phone: Indications: [...] Edema documented in this encounter Care Teams Skip Operator Relationship Specialty Start Date End Date Jennifer Suarez, ROMINA [address] [place] [facility] [address] PCP - General Family Medicine 07/14/20 11/20/22 documented as of this encounter
--- OUTSIDE RECORDS SUMMARY | 2024-01-08 15:44 | XMS_ITS | Encounter Summary ---
Author Organization [facility] Address [facility] [place] [address] Care Team Providers Care Outside Sales Engineer Name Role Phone Jennifer Suarez APRN Primary Care Provider [phone] Encounter Details Date Type Department Care Team (Latest Contact Info) Description 06/10/2021 2:15 PM EDT - 06/10/2021 11:59 PM EDT Hospital Encounter XRay at [address] [place] [address] Iris Jackson MD [facility] [place] [address] Acquired left hindfoot varus Discharge Disposition: Home [...] have questions please contact the health rn coronary care unit that requested your imaging first. [...] who have questions please contactthe health rn coronary care unit that requested your imaging first. Iris Jackson MD IMG DX ORDERABLES documented in this encounter Visit Diagnoses Diagnosis Acquired left hindfoot varus documented in this encounter Care Teams Outside Sales Engineer Relationship Specialty Start Date End Date Jennifer Suarez, PUNCH PRESS SETTER [address] [place] [address] PCP - General Family Medicine 07/14/20 11/20/22 documented as of this encounter
--- OUTSIDE RECORDS SUMMARY | 2024-01-08 15:44 | XMS_ITS | Encounter Summary ---
[place] [address] Care Team Providers Care Glass Carrier Name Role Phone Jennifer Suarez APRN Primary Care Provider [phone] Encounter Details Date Type Department Care Team (Late st Contact Info) Description 08/25/2021 Telephone [place] [address] Yumiko Kerr Social History Tobacco Use Types [...] on filedocumented in this encounter Care Teams Glass Carrier Relationship Specialty Start Date End Date Jennifer Suarez APRN [address] [place] [address] PCP - General Family Medicine 07/14/20 11/20/22 documented as of this encounter
--- OUTSIDE RECORDS SUMMARY | 2024-01-08 15:44 | XMS_ITS | Encounter Summary ---
[place] [address] Care Team Providers Care Batch Mixing Truck Driver Name Role Phone Jennifer Suarez APRN Primary Care Provider [phone] Encounter Details Date Type Department Care Team (Late st Contact Info) Description 09/01/2021 Telephone [place] [address] Sandra Weeks Social History Tobacco Use Types [...] Faxed to Brianna @ [employer] #[phone] for ,PT received successful confirmation of 8 pages including cover page documented in this encounter Plan of Treatment Not on file documented as of this encounter Visit Diagnoses Not on filedocumented in this encounter Care Teams Batch Mixing Truck Driver Relationship Specialty Start Date End Date Jennifer Suarez APRN [address] [place] [address] PCP - General Family Medicine 07/14/20 11/20/22 documented as of this encounter
--- OUTSIDE RECORDS SUMMARY | 2024-01-08 15:44 | XMS_ITS | Encounter Summary ---
Author Organization [facility] [place] [address] Care Team Providers Care Rand Butter Name Role Phone Jennifer Suarez APRN Primary Care Provider [phone] Encounter Details Date Type Department Care Team (Late st Contact Info) Description 06/15/2021 Telephone [place] [address] Tio Mayo MD [facility] [place] [address] Social History Tobacco Use Types Packs/Day Years [...] left a message for patient to call [phone] directly and schedule surgery with Dr. mayo. [...] on filedocumented in this encounter Care Teams Rand Butter Relationship Specialty Start Date End Date Jennifer Suarez, SNOWBOARDER [address] [place] [address] PCP - General Family Medicine 07/14/20 11/20/22 documented as of this encounter
--- OUTSIDE RECORDS SUMMARY | 2024-01-08 15:44 | XMS_ITS | Encounter Summary ---
[place] [address] Care Team Providers Care Tiler'S Assistant Name Role Phone Jennifer Suarez APRN Primary Care Provider [phone] Reason for Referral * Diagnostic Test (Routine) - Closed Specialty Diagnoses / Procedures Referred By Contac t Referred To Contact Radiology Diagnoses Arthritis of left ankle Procedures CT Ankle wo Contrast Left (Generic) Tio Mayo MD [facility] [place] [address] [facility] [place] [address] Referral ID Status Reason Start Date Expiration Date V isits Requested Visits Authorized [id number] Closed Specialty Service Requested 04/20/2021 10/18/2022 1 1 Reason for Visit * Diagnostic Test (Routine) - Closed Specialty Diagnoses / Procedures Referred By Contac t Referred To Contact Radiology Diagnoses Arthritis of left ankle Procedures CT Ankle wo Contrast Left (Generic) Tio Mayo MD [facility] [place] [address] [facility] [place] [address] Referral ID Status Reason Start Date Expiration Date V isits Requested Visits Authorized [id number] Closed Specialty Service Requested 04/20/2021 10/18/2022 1 1 Encounter Details Date Type Department Care Team (Latest Contact Info) Description 06/10/2021 1:12 PM EDT - 06/10/2021 2:14 PM EDT Hospital Encounter CT Scan [place] [facility] [place] [address] Tio Mayo MD [facility] DR ORTHOPA[place] [address] Arthritis of left ankle Discharge Disposition: Home [...] care aid that requested your imaging first. Tio Mayo MD IMG CT ORDERABLES documented in this encounter Visit Diagnoses Diagnosis Arthritis of left ankle Unspecified arthropathy, ankle and foot documented in this encounter Care Teams Tiler'S Assistant Relationship Specialty Start Date End Date Jennifer Suarez, ROMINA [address] [place] [address] PCP - General Family Medicine 07/14/20 11/20/22 documented as of this encounter
--- OUTSIDE RECORDS SUMMARY | 2024-01-08 15:44 | XMS_ITS | Encounter Summary ---
Author Organization [facility] Address [facility] [place] [address] Care Team Providers Care Boat Builder And Repairer Name Role Phone Jennifer Suarez APRN Primary Care Provider [phone] Reason for Visit * Auth/Cert Specialty Diagnoses [...] Expiration Date Visits Re quested Visits Authorized [id number] 1 1 Encounter Details Date Type Department Care Team (Late st Contact Info) Description 12/01/2020 7:31 AM EDT Anesthesia Event [place] [address] Lambert Patino MD [facility] [place] [address] Gregoria Buchanan MD [facility] [place] [address] Anesthesia Record Procedure Summary Procedure Name Responsible [...] basilic vein (medial side of arm), left; yqrs-qng-gxvaxo catheter system; 22 gauge; distraction, tolerated well; [...] Procedure Summary Date: 12/01/20 Room / [facility] OR Anesthesia Start: 730 Anesthesia Stop: 947 Procedures: REMOVAL OF IMPLANT, DEEP, FOOT (WRVU 5.96) (Left Foot) OSTEOTOMY, CALCANEUS (WRVU 9.73) (Left Ankle) MODIFIER 7.3 CANNULATED SCREWS SYNTHES (Left Foot) Diagnosis: (retained left subtalar screws, hindfoot varus) Surgeons: Tio Mayo MD Responsible Provider: Lambert Patino MD Anesthesia Type: general ASA Status: 3 All Anesthesia Providers: Anesthesiologist: Lambert Patino MD TUBE MACHINE OPERATOR: Iwona Zaragoza CRNA Student Nurse Biochemistry Specialist: Skye Gale Vitals Value Taken Time BP 112/68 12/01/20 1115 Temp 36 ??C (96.8 ??F) 12/01/20 0945 Pulse Resp 16 12/01/20 1100 SpO2 98 % 12/01/20 1123 Pain Level 5 12/01/20 1021 Vitals shown include unvalidated device data. Patient Location: PACU/[facility] Level of Consciousness: Awake and Alert Pain [...] Joint Injection Medium Left 09/06/2020 Janell Shah, STUDENT WORKER [facility] RAD XRAY Social History Tobacco Use ??? [...] Staff: ??Fellow:: ??Gregoria Buchanan MD ??Attending Physician:: ??Freddei Lyle MD Notes: ?? Popliteal/Sciatic - 20mls Saphenous - 10mls Freddie Lyle MD HOT DIE PICKER [facility] documented in this encounter Visit Diagnoses [...] mg documented in this encounter Care Teams Boat Builder And Repairer Relationship Specialty Start Date End Date Jennifer Suarez, STUDENT WORKER [address] [place] [address] PCP - General Family Medicine 07/14/20 11/20/22 documented as of this encounter
--- OUTSIDE RECORDS SUMMARY | 2024-01-08 15:44 | XMS_ITS | Encounter Summary ---
Author Organization [facility] Address [facility] [place] [address] Care Team Providers Care Railroad Passenger Agent Name Role Phone Jennifer Suarez APRN Primary Care Provider [phone] Reason for Visit * Reason Comments Follow Up Surgery s/p YEE L Foot DOS 0 12/01/2020 Encounter Details Date Type Department Care Team (Late st Contact Info) Description 04/01/2021 1:30 PM EST Office [place] [address] Karey De PA [facility] [place] [address] Acquired left hindfoot varus Social History Tobacco [...] NAME: Susan Whitney AGE: 51 y.o. MR#: [id number] DATE OF VISIT: 04/01/2021 CHIEF COMPLAINT: 4 [...] foot at bedtime. 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 ? Electronically signed by: Deb Michelle MD, [facility] ([phone]), at 06/10/2021 4:01 PM Narrative 06/10/2021 4:01 [...] have questions please contactthe health critical care rn that requested your imaging first. 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
--- OUTSIDE RECORDS SUMMARY | 2024-01-08 15:44 | XMS_ITS | Encounter Summary ---
Author Organization [facility] Address [facility] [place] [address] Care Team Providers Care Diesel Power Shovel Operator Name Role Phone Jennifer Suarez APRN Primary Care Provider [phone] Encounter Details Date Type Department Care Team (Latest Contact Info) Description 02/08/2021 12:50 PM EST - 02/08/2021 11:59 PM [facility] Hospital Encounter XRay at [address] [place] [address] Iris Jackson MD [facility] [address] Acquired left hindfoot varus Discharge Disposition: Home [...] have questions please contact the health manager medicare marketing that requested your imaging first. ? Narrative [...] who have questions please contactthe health manager medicare marketing that requested your imaging first. Iris Jackson MD IMG DX ORDERABLES documented in this encounter Visit Diagnoses Diagnosis Acquired left hindfoot varus documented in this encounter Care Teams Diesel Power Shovel Operator Relationship Specialty Start Date End Date Jennifer Suarez APRN [address] [place] [address] PCP - General Family Medicine 07/14/20 11/20/22 documented as of this encounter
--- OUTSIDE RECORDS SUMMARY | 2024-01-08 15:45 | XMS_ITS | Encounter Summary ---
Author Organization [facility] [place] [address] Care Team Providers Care Senior Treasury Analyst Name Role Phone Jennifer Suarez APRN Primary Care Provider [phone] Encounter Details Date Type Department Care Team (Late st Contact Info) Description 07/14/2020 Ancillary Procedure Radiology Library at [facility] [place] [address] Tio Mayo MD [facility] [place] [address] Social History Tobacco Use Types Packs/Day Years [...] Lower Extremity (07/14/2020 12:00 AM EDT) Narrative [facility] - 07/16/2020 9:03 AM EDT This exam is auto-finalizing. It's purpose is for storage only. Tio Mayo MD IMG FILM LIBRARY ORD ERABLES [place], [place] documented in this encounter Visit Diagnoses Not on filedocumented in this encounter Care Teams Senior Treasury Analyst Relationship Specialty Start Date End Date Jennifer Suarez, SOLID WASTE ANALYST [address] [facility] [place] [address] PCP - General Family Medicine 07/14/20 11/20/22 documented as of this encounter
--- OUTSIDE RECORDS SUMMARY | 2024-01-08 15:45 | XMS_ITS | Encounter Summary ---
Author Organization [facility] Address [address] [place] [address] Care Team Providers Care Blasting Coal Miner Name Role Phone Unknown, Provider Primary Care Provider Encounter Details Date Type Department Care Team (Late st Contact Info) Description 03/06/2022 Orders Only [facility] [address] [address] Adore Roman, RN [address] [place] [address] Social History Tobacco Use Types Packs/Day Years Used Date Smoking Tobacco: Never Assessed Sex and Gender Information Value Date Recorded Sex Assigned at Not on file Gender Identity Female 03/07/2022 14:17 EST Sexual Orientation Not on file documented as of this encounter Plan of Treatment Not on file documented as of this encounter Visit Diagnoses Not on filedocumented in this encounter Care Teams Blasting Coal Miner Relationship Specialty Start Date End Date Unknown, Provider, PCP - General 11/06/16 documented as of this encounter
--- OUTSIDE RECORDS SUMMARY | 2024-01-08 15:45 | XMS_ITS | Encounter Summary ---
Author Organization [facility] Address [address] [place] [address] Care Team Providers Care Manufacturing Sr Engineer Name Role Phone Unknown, Provider Primary Care Provider Encounter Details Date Type Department Care Team (Late st Contact Info) Description 03/06/2022 Orders Only [facility] - Main [address] [address] Adore Roman RN [address] [place] [address] Screening examination for pulmonary tuberculosis (Primary Dx); [...] Ab Positive See Note 03/08/2022 10:10 EST [facility] Comment:Presence of detectab le Varicella Zoster virus IgG antibodies. Blood VENOUS BLOOD / Unknown Venipuncture / Unknown 03/07/2022 14:39 EST 03/07/2022 14:39 EST Nelson Correia MD IMMUNOLOGY AND SEROLOGY ORDERABLES [facility] [address] [place] [address] * RUBELLA IGG ANTIBODY (03/07/2022 14:39 EST) Rubella IgG Ab Positive See Note 03/08/2022 10:18 EST [facility] Comment:Positive for IgG ant ibodies to Rubella virus. Blood VENOUS BLOOD / Unknown Venipuncture / Unknown 03/07/2022 14:39 EST 03/07/2022 14:39 EST Nelson Correia MD CHEMISTRY & BLO OD GAS ORDERABLES Performing Organization Address [facility] Co de Phone Number [facility] [address] [place] [address] * MUMPS ANTIBODY IGG (03/07/2022 14:39 EST) Mumps Antibody IgG Positive See Note 03/08/2022 10:16 EST [facility] Comment:Presence of detectab le mumps virus IgG antibodies. Blood VENOUS BLOOD / Unknown Venipuncture / Unknown 03/07/2022 14:39 EST 03/07/2022 14:39 EST Nelson Correia MD IMMUNOLOGY AND SEROLOGY ORDERABLES Performing Organization Address [facility] Co de Phone Number [facility] [address] [place] [address] * MEASLES IGG AB (03/07/2022 14:39 EST) Measles IgG Ab Positive See Note 03/08/2022 10:13 EST [facility] Comment:Presence of detectab le measles virus IgG antibodies. Blood VENOUS BLOOD / Unknown Venipuncture / Unknown 03/07/2022 14:39 EST 03/07/2022 14:39 EST Nelson Correia MD IMMUNOLOGY AND SEROLOGY ORDERABLES Performing Organization Address [facility] Co de Phone Number [facility] [address] [place] [address] * HEPATITIS B SURFACE ANTIBODY (03/07/2022 14:39 EST) Hep B Surface Ab, Quantitative 7.6 See Note mIU/mL 03/08/2022 9:47 EST [facility] Comment: Reference Range for Hep B Surface Ab, Quant: Positive: >= 10.0 mIU/mL Negative: ??< 10.0 mIU/mL Patient is presumed to not be immune to infection with Hepatitis B Virus. Hep B Surface Ab, Qualitative Negative See Note 03/08/2022 9:47 EST [facility] Comment: Reference Range for Hep B Surface Ab, Qual: Unvaccinated: ??Negative Vaccinated: ??Positive Blood VENOUS BLOOD / Unknown Venipuncture / Unknown 03/07/2022 14:39 EST 03/07/2022 14:39 EST Nelson Correia MD CHEMISTRY & BLO OD GAS ORDERABLES [facility] [address] [place] [address] documented in this encounter Visit Diagnoses Diagnosis Screening examination for pulmonary tuberculosis- Primary Immunity status testing Antibody response examination documented in this encounter Care Teams Manufacturing Sr Engineer Relationship Specialty Start Date End Date Unknown, Provider, PCP - General 11/06/16 documented as of this encounter
--- OUTSIDE RECORDS SUMMARY | 2024-01-08 15:45 | XMS_ITS | Encounter Summary ---
Author Organization [facility] [place] [address] Care Team Providers Care Table Games Dual Rate Supervisor Name Role Phone Adarsh Wynn MD Primary Care Provider [phone] Encounter Details Date Type Department Care Team (Latest Contact Info) Description 11/24/2015 1:15 PM EDT Office Visit Audiology at [address] [address] Aby Calderon, AUD [facility] [place] [address] Sensorineural hearing loss, asymmetrical Social History Tobacco [...] Surgery for left Baha placement performed at [facility] in 2005. 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 Her boyfriend also reports that she has difficulty understanding him at home. ?? Uses an Audibel (owned by [employer]) forklift truck mechanic in the ear hearing aid in the right ear. The hearingaid programming is managed by a provider in [place]. She typically uses the hearing aid programming [...] the purpose of today's evaluation instead. A Truecaller V90-SP BTE (#[id number]) was selected and coupled to a Comply [...] proceed with either of these options [place] [facility] [place] Additionally audiologic evaluation in one year was recommended to continue to monitor hearing sensitivity, or sooner as necessary for any suspected changes. She will also follow-up otologically as recommended by Dr. Clarke. Regina Calderon MS, [facility] Clinical [place] [address] (fax) Copy: Edgar Clarke MD documented in [...] BC Right ear was aided with a [facility] Truecaller V90-SP BTE (#[id number]) coupled to a Comply eartip - The [...] BC Right ear was aided with a [employer] V90-SP BTE (#[id number])coupled to a Comply eartip - The aid [...] asymmetrical documented in this encounter Care Teams Table Games Dual Rate Supervisor Relationship Specialty Start Date End Date Adarsh Wynn MD [facility] [address] [place] [address] PCP - General General Internal Medicine 05/25/1507/24 documented as of this encounter
--- OUTSIDE RECORDS SUMMARY | 2024-01-08 15:45 | XMS_ITS | Encounter Summary ---
Author Organization [facility] Address [address] [place] [address] Care Team Providers Care Aerospace Quality Engineer Name Role Phone Unknown, Provider Primary Care Provider Encounter Details Date Type Department Care Team (Late st Contact Info) Description 10/06/2022 Orders Only [facility] - [address] [address] Betzaida Hernandez RN Social History Tobacco Use [...] on filedocumented in this encounter Care Teams Aerospace Quality Engineer Relationship Specialty Start Date End Date Unknown, Provider, PCP - General 11/06/16 documented as of this encounter
--- OUTSIDE RECORDS SUMMARY | 2024-01-08 15:45 | XMS_ITS | Encounter Summary ---
Author Organization [facility] [place] [address] Care Team Providers Care Technical Assistant Name Role Phone Adarsh Wynn MD Primary Care Provider [phone] Reason for Visit * Audiology Exam (Routine) - Closed Specialty Diagnoses / Procedures Referred By Cheri silverman Referred To Contact Audiology Diagnoses hearing loss/dizziness Adarsh Wynn MD [facility] [address] [place] [address] [facility] [address] [place] [id number] Referral ID Status Reason Start Date Expiration Date V isits Requested Visits Authorized [id number] Closed Consult, Test & Treat Connection [facility] 05/25/2015 05/24/2016 1 1 Encounter Details Date Type Department Care Team (Latest Contact Info) Description 06/03/2015 11:00 AM EST Office Visit Audiology at [address] [phone] Laura Coffey AUD [facility] [place] [address] Asymmetrical sensorineural hearing loss; Tinnitus, [...] been followed by Marcos Burks MD in [place], [place] for a left BAHA (surgery completed [...] review). She currently uses an Audibel START [id number]-ear hearing aid for her right ear, which was fit two years ago through a center in [place], as well as a Cochlear 3 Power (BP 110) bone-anchored hearing device for the left side. While she continues to receive audiologic management and support for her right hearing aid through the center in [place] where she was fit, she reported today [...] in 2005 with Marcos Burks MD in [place], [place] EVALUATION: (please refer to audiogram) RESULTS/IMPRESSIONS: [...] not hesitate to contact this Section at [phone] if there are questions regarding this report or [place] [address] Attachment: audiogram CC: MD [address] [id number] documented in this encounter Plan of Treatment Not on file documented as of this encounter Visit Diagnoses Diagnosis Asymmetrical sensorineural hearing loss Sensorineural hearing loss, asymmetrical Tinnitus, bilateral Unspecified tinnitus Vertigo Dizziness and giddiness documented in this encounter Care Teams Technical Assistant Relationship Specialty Start Date End Date Adarsh Wynn MD [facility] [address] [place] [address] PCP - General General Internal Medicine 05/25/1507/24 documented as of this encounter
--- OUTSIDE RECORDS SUMMARY | 2024-01-08 15:45 | XMS_ITS | Encounter Summary ---
Author Organization [facility] [place] [address] Care Team Providers Care Software Technical Lead Name Role Phone Adarsh Wynn MD Primary Care Provider [phone] Encounter Details Date Type Department Care Team (Late st Contact Info) Description 06/07/2015 External Results [place] [address] Laura Coffey AUD [facility] [place] [address] Social History Tobacco Use Types Packs/Day Years [...] on filedocumented in this encounter Care Teams Software Technical Lead Relationship Specialty Start Date End Date Adarsh Wynn MD [facility] [address] [place] [address] PCP - General General Internal Medicine 05/25/1507/24 documented as of this encounter
--- OUTSIDE RECORDS SUMMARY | 2024-01-08 15:45 | XMS_ITS | Encounter Summary ---
Author Organization [facility] Address [address] [place] [address] Care Team Providers Care Bricklayer Apprentice Name Role Phone Unknown, Provider Primary Care Provider [phone] Encounter Details Date Type Department Care Team (Late st Contact Info) Description 10/06/2022 Lab Requisition [facility] Pathology & Laboratory Medicine - [address] [address] Outr Resulting Lab, Provider Social History Tobacco [...] 860.5 See Note mIU/mL 10/09/2022 10:51 EDT [facility] Comment: Reference Range for Hep B Surface Ab, Quant: Positive: >= 10.0 mIU/mL Negative: ??< 10.0 mIU/mL Patient is presumed to be immune to infection with Hepatitis B Virus. Hep B Surface Ab, Qualitative Positive See Note 10/09/2022 10:51 EDT [facility] Comment: Reference Range for Hep B Surface Ab, Qual: Unvaccinated: ??Negative Vaccinated: ??Positive Blood VENOUS BLOOD / Unknown 10/06/2022 17:06 EDT 10/08/2022 15:38 EDT Provider Outr Resulting Lab CHEMISTRY & BLOOD GAS ORDERABLES [facility] [address] [place] [address] documented in this encounter Visit Diagnoses Not on filedocumented in this encounter Care Teams Bricklayer Apprentice Relationship Specialty Start Date End Date Unknown, Provider, PCP - General 11/06/16 documented as of this encounter
--- OUTSIDE RECORDS SUMMARY | 2024-01-08 15:45 | XMS_ITS | Encounter Summary ---
Author Organization [facility] Address [address] [place] [address] Care Team Providers Care Innersole Maker Name Role Phone Unknown, Provider Primary Care Provider Encounter Details Date Type Department Care Team (Late st Contact Info) Description 03/07/2022 14:15 EST Phlebotomy Only [facility] Laboratory Services - [address] [address] Operations Consultant, [facility] Lab Immunity status testing; Screening examination [...] Quantiferon Interpretation Negative Negative 03/08/2022 13:30 EST [facility] Comment:No interferon-gamma response to M. tuberculosis antigens was detected. ??Infection with M. tuberculosis is unlikely. A single negative result does not exclude infection with M. tuberculosis. ??In patients at high risk for M. tuberculosis infection, a second test should be considered. TB1 Ag minus Nil 0.00 IU/ml 03/08/20 13:30 EST [facility] TB2 Ag minus Nil 0.00 IU/mL 03/08/20 13:30 EST [facility] Blood VENOUS BLOOD / Unknown Venipuncture / Unknown 03/07/2022 14:39 EST 03/08/2022 12:40 EST Narrative [facility] - 03/08/2022 13:30 EST Results were obtained with the [employer] QuantiFERON-TB Gold Plus CLIA. New platform in use 12/01/2020 Nelson Correia MD IMMUNOLOGY AND SEROLOGY ORDERABLES [facility] [address] [place] [address] * QUANTIFERON MITOGEN (PERFORMABLE) (03/07/2022 14:39 EST) Blood VENOUS BLOOD / Unknown Venipuncture / Unknown 03/07/2022 14:39 EST 03/07/2022 14:39 EST Nelson Correia MD IMMUNOLOGY AND SEROLOGY ORDERABLES Performing Organization Address [facility] de Phone Number [facility] [address] [place] [address] * QUANTIFERON TB2 (PERFORMABLE) (03/07/2022 14:39 EST) Blood VENOUS BLOOD / Unknown Venipuncture / Unknown 03/07/2022 14:39 EST 03/07/2022 14:39 EST Nelson Correia MD IMMUNOLOGY AND SEROLOGY ORDERABLES Performing Organization Address [facility] Co de Phone Number [facility] [address] [place] [address] * QUANTIFERON TB1 (PERFORMABLE) (03/07/2022 14:39 EST) Blood VENOUS BLOOD / Unknown Venipuncture / Unknown 03/07/2022 14:39 EST 03/07/2022 14:39 EST Nelson Correia MD IMMUNOLOGY AND SEROLOGY ORDERABLES Performing Organization Address [facility] Co de Phone Number [facility] [address] [place] [address] * QUANTIFERON NIL (PERFORMABLE) (03/07/2022 14:39 EST) Blood VENOUS BLOOD / Unknown Venipuncture / Unknown 03/07/2022 14:39 EST 03/07/2022 14:39 EST Nelson Correia MD IMMUNOLOGY AND SEROLOGY ORDERABLES Performing Organization Address [facility] Co de Phone Number [facility] [address] [place] [address] * VARICELLA IGG ANTIBODY (03/07/2022 14:39 EST) Varicella IgG Ab Positive See Note 03/08/2022 10:10 EST [facility] Comment:Presence of detectab le Varicella Zoster virus IgG antibodies. Blood VENOUS BLOOD / Unknown Venipuncture / Unknown 03/07/2022 14:39 EST 03/07/2022 14:39 EST Nelson Correia MD IMMUNOLOGY AND SEROLOGY ORDERABLES Performing Organization Address [facility] Co de Phone Number [facility] [address] [place] [address] * RUBELLA IGG ANTIBODY (03/07/2022 14:39 EST) Rubella IgG Ab Positive See Note 03/08/2022 10:18 EST [facility] Comment:Positive for IgG ant ibodies to Rubella virus. Blood VENOUS BLOOD / Unknown Venipuncture / Unknown 03/07/2022 14:39 EST 03/07/2022 14:39 EST Nelson Correia MD CHEMISTRY & BLO OD GAS ORDERABLES Performing Organization Address [facility] de Phone Number [facility] [address] [place] [address] * MUMPS ANTIBODY IGG (03/07/2022 14:39 EST) Mumps Antibody IgG Positive See Note 03/08/2022 10:16 EST [facility] Comment:Presence of detectab le mumps virus IgG antibodies. Blood VENOUS BLOOD / Unknown Venipuncture / Unknown 03/07/2022 14:39 EST 03/07/2022 14:39 EST Nelson Correia MD IMMUNOLOGY AND SEROLOGY ORDERABLES Performing Organization Address [facility] de Phone Number [facility] [address] [place] [address] * MEASLES IGG AB (03/07/2022 14:39 EST) Measles IgG Ab Positive See Note 03/08/2022 10:13 EST [facility] Comment:Presence of detectab le measles virus IgG antibodies. Blood VENOUS BLOOD / Unknown Venipuncture / Unknown 03/07/2022 14:39 EST 03/07/2022 14:39 EST Nelson Correia MD IMMUNOLOGY AND SEROLOGY ORDERABLES Performing Organization Address [facility] Co de Phone Number [facility] [address] [place] [address] * HEPATITIS B SURFACE ANTIBODY (03/07/2022 14:39 EST) Hep B Surface Ab, Quantitative 7.6 See Note mIU/mL 03/08/2022 9:47 EST [facility] Comment: Reference Range for Hep B Surface Ab, Quant: Positive: >= 10.0 mIU/mL Negative: ??< 10.0 mIU/mL Patient is presumed to not be immune to infection with Hepatitis B Virus. Hep B Surface Ab, Qualitative Negative See Note 03/08/2022 9:47 EST [facility] Comment: Reference Range for Hep B Surface Ab, Qual: Unvaccinated: ??Negative Vaccinated: ??Positive Blood VENOUS BLOOD / Unknown Venipuncture / Unknown 03/07/2022 14:39 EST 03/07/2022 14:39 EST Nelson Correia MD CHEMISTRY & BLO OD GAS ORDERABLES Performing Organization Address [facility] Co de Phone Number [facility] [address] [place] [address] documented in this encounter Visit Diagnoses Diagnosis Immunity status testing Antibody response examination Screening examination for pulmonary tuberculosis documented in this encounter Care Teams Innersole Maker Relationship Specialty Start Date End Date Unknown, Provider, PCP - General 11/06/16 documented as of this encounter
--- OUTSIDE RECORDS SUMMARY | 2024-01-08 15:45 | XMS_ITS | Encounter Summary ---
[place] [address] Care Team Providers Care Senior Military Analyst Name Role Phone Adarsh Wynn MD Primary Care Provider Reason for Referral * Consultation (Routine) - Closed Specialty Diagnoses / Procedures Referred By Cheri silverman Referred To Contact Podiatry Gisell Hill MD [facility] [place] [address] [facility] Podiatry [address] [place] [phone] Referral ID Status Reason Start Date Expiration Date V isits Requested Visits Authorized [id number] Closed Consult, Test & Treat 10/14/2015 10/13/2016 1 1 Reason for Visit * Reason Comments Foot Pain Encounter Details Date Type Department Care Team (Late st Contact Info) Description 10/14/2015 12:01 PM EDT - 10/14/2015 2:39 PM EDT [place] [address] Jamal Ford MD [address] [place] [address] Foot pain, left; Left ankle pain, unspecified [...] EDT We have made a referral to [facility]. You should receive a call regarding your appointment. You have been prescribed ibuprofen. You may take this as indicated. It is advised that you also take zantac (ranitidine or famotidine) twice a day when taking ibuprofen for GI upset. * Attachments The following attachments cannot be sent through Care Everywhere. * FOOT PAIN (MALAY) documented in this encounter Medications at Time [...] while to get in to see her PCP/manager pediatric so she came to [facility] for further evaluation. She states that the [...] of the right foot diagnosed by her manager pediatric. He also removed a toenail on the [...] for GI upset. Made a referral to [facility] and patient also stated she will try to see her manager pediatric as well for continued follow up. We [...] limb documented in this encounter Care Teams Senior Military Analyst Relationship Specialty Start Date End Date Adarsh Wynn MD [facility] [address] [place] [address] PCP - General General Internal Medicine 05/25/1507/24 documented as of this encounter
--- OUTSIDE RECORDS SUMMARY | 2024-01-08 15:45 | XMS_ITS | Clinical Summary ---
Author Organization [facility] Address [address] [place] [address] Care Team Providers Care Leaded Glass Installer Name Role Phone Unknown, Provider Primary Care Provider Encounters Date Type Department Care Team Description 01/08/2024 Lab Requisition [facility] Pathology & Laboratory Medicine - [facility] [address] [place] [address] Outr Resulting Lab, Provider from Last 3 Months Social History Tobacco Use Types Packs/Day Years [...] - 19+ 3-dose series) 03/19 COVID-19 Vaccine ( season) 2022 Care Teams Leaded Glass Installer Relationship Specialty Start Date End Date Unknown, Provider, PCP - General 11/06/16
--- OUTSIDE RECORDS SUMMARY | 2024-01-08 15:45 | XMS_ITS | Encounter Summary ---
[place] [address] Care Team Providers Care Model Maker Scale Name Role Phone Mikey Hernandez MD Primary Care Provider [phone] Reason for Visit * Reason Comments Cellulitis Encounter Details Date Type Department Care Team (Late st Contact Info) Description 09/30/2019 6:50 PM EDT - 09/30/2019 6:51 PM EDT [place] [phone] Cellulitis of leg, right Discharge Disposition: Home [...] be sent through Care Everywhere. * Cellulitis (Taiwanese) documented in this encounter Medications at Time [...] -Antibiotics -Discharge home Juan Carlos Melgar PA 09/30/19 9329 documented in this encounter Plan of Treatment Not on file documented as of this encounter Visit Diagnoses Diagnosis Cellulitis of leg, right Cellulitis and abscess of leg, except foot documented in this encounter Care Teams Model Maker Scale Relationship Specialty Start Date End Date Mikey Hernandez MD PCP - General 08/08/16 07/13/20 documented as of this encounter
--- OUTSIDE RECORDS SUMMARY | 2024-01-08 15:45 | XMS_ITS | Referral Summary ---
Author Organization [facility] Address [address] [place] [address] Care Team Providers Care Agricultural Chemist Name Role Phone Unknown, Provider Primary Care Provider Encounters Date Type Department Care Team Description 01/08/2024 Lab Requisition [facility] Pathology & Laboratory Medicine - [facility] [address] [place] [address] Outr Resulting Lab, Provider from Last 3 Months Social History Tobacco Use Types Packs/Day Years Used Date Smoking Tobacco: Never Assessed Sex and Gender Information Value Date Recorded Sex Assigned at Not on file Gender Identity Female 03/07/2022 14:17 EST Sexual Orientation Not on file Plan of Treatment Not on file Care Teams Agricultural Chemist Relationship Specialty Start Date End Date Unknown, Provider, PCP - General 11/06/16
--- OUTSIDE RECORDS SUMMARY | 2024-01-08 15:45 | XMS_ITS | Encounter Summary ---
Author Organization [facility] [place] [address] Care Team Providers Care Pig Furnace Operator Name Role Phone Adarsh Wynn MD Primary Care Provider [phone] Encounter Details Date Type Department Care Team (Latest Contact Info) Description 07/20/2015 3:15 PM EDT Office Visit Audiology at [address] [address] Ayleen Youngblood [facility] [place] [address] Asymmetrical sensorineural hearing loss; Tinnitus, bilateral Social [...] Surgery for left Baha placement performed at [facility] in 2005. ?? 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 It is noisy (but not as noisy aswhere she worked in [place]). She has difficulty understanding speech if she is not facing the speaker. Her also reports that she has difficulty understanding him at home. ?? Uses a Audibel (owned by [employer]) delivery motorcycle driver in the ear hearing aid in the right ear. The hearing aid programming is managed by a provider in [place]. She typically uses the hearing aid programming [...] side. It is recommended that she contact [employer] to inquire on potential insurance coverage (she does not think her insurance covers Baha replacement equipment). [place] [employer] bilitation may also be a source of potential funding. Please do not hesitate to contact this Section at [phone] if there are questions regarding this report or its recommendations. Nazia Ramos Clinical [place] [address] ; AMPLIFICATION DEVICE(S): HEARING AID RIGHT LEFT Make/Model/Style Audibel hearing aid (managed at outside clinic) [employer] BP110 Power Casing Color Kinnelon Faceplate Serial Number [id number] Battery Size/Battery Club 675 Invoice number / date PROGRAM/SETTINGS Fitting Algorithm BC Direct Verification Method Programs P1= Everyday P2= Noise, Directional Microphone Disabled Features Other WARRANTY Original Fit Date Unknown- original programming at [facility] performed on 07/20/15 Current Status Unknown (likely out of warranty) ACCESSORIES Make/Model Color Serial Number Invoice number/date documented in this encounter Plan of Treatment Not on file documented as of this encounter Visit Diagnoses Diagnosis Asymmetrical sensorineural hearing loss Sensorineural hearing loss, asymmetrical Tinnitus, bilateral Unspecified tinnitus documented in this encounter Care Teams Pig Furnace Operator Relationship Specialty Start Date End Date Adarsh Wynn MD [facility] [address] [place] [address] PCP - General General Internal Medicine 05/25/1507/24 documented as of this encounter
--- OUTSIDE RECORDS SUMMARY | 2024-01-08 15:45 | XMS_ITS | Encounter Summary ---
Author Organization [facility] Address [address] [place] [address] Care Team Providers Care Can Machine Operator Name Role Phone Unknown, Provider Primary Care Provider Encounter Details Date Type Department Care Team (Late st Contact Info) Description 11/19/2020 Lab Requisition [facility] Pathology & Laboratory Medicine - [facility] [address] [place] [address] Sneha Lizarraga, DO [address] [place], [place] [id number] Irritable bowel syndrome without diarrhea Social History [...] management options, if applicable. 11/23/2020 9:46 EDT [facility] Final Diagnosis A. COLON, CECUM, BIOPSY: - Colonic mucosa with no significant diagnostic abnormality. B. COLON, 50 CM, BIOPSY: - Colonic mucosa with no significant diagnostic abnormality. C. RECTUM, BIOPSY: - Colonic mucosa with no significant diagnostic abnormality. 11/23/2020 9:46 [facility] Attestation There was significant resident/fellow involvement in the diagnostic evaluation of this case. By the signature below, the attending physician certifies that they have personally conducted a gross and/or microscopic examination of the described specimens and rendered or confirmed the above diagnosis. 11/23/2020 9:46 [facility] at 0946 Clinical History Screening, IBS 11/23/2020 9:46 [facility] Gross Description A. Received [...] 0.1 cm). Submitted intact in C1. MARYLIN GERMAIN([facility]) 11/19/2020 16:05 11/23/2020 9:46 [facility] Resident/Tam w: Justo Kwan, 11/23/2020 9:46 [facility] Performing Lab [facility] 11/23/2020 9:46 [facility] Scanned Images 11/23/2020 9:46 [facility] Tissue SPECIMEN FROM RECTUM / Unknown 11/19/2020 7:45 EDT 11/19/2020 15:50 EDT Tissue specimen (specimen) COLON STRUCTURE / Unknown 11/19/2020 7:45 EDT 11/19/2020 15:50 EDT Tissue specimen (specimen) SPECIMEN FROM RECTUM / Unknown 11/19/2020 7:45 EDT 11/19/2020 15:50 EDT Sneha Lizarraga DO PATHOLOGY ORDERABLES [facility] [address] [place] [address] documented in this encounter Visit Diagnoses Diagnosis Irritable bowel syndrome without diarrhea Irritable bowel syndrome documented in this encounter Care Teams Can Machine Operator Relationship Specialty Start Date End Date Unknown, Provider, PCP - General 11/06/16 documented as of this encounter
--- OUTSIDE RECORDS SUMMARY | 2024-01-08 15:45 | XMS_ITS | Encounter Summary ---
Author Organization [facility] Address [address] [place] [address] Care Team Providers Care Tennis Player Name Role Phone Unknown, Provider Primary Care Provider [phone] Encounter Details Date Type Department Care Team (Late st Contact Info) Description 11/02/2016 Results Only [facility] [phone] Jacinda Suarez, TAWANNA [address] [place], [place] [id number] Social History Tobacco Use Types Packs/Day Years [...] ? TOO BAEZ ? Accession #: ? [id number] ? : ? 1970 (Age: 46) ??F [...] and electronically signed by: ? Alem Gauthier RUST(ASCP) ? Report ??Date: 11/13/2016 10:42 HPV with Pap Test ? Date Ordered: ? 11/13/2016 ? Status: ?? Signed Out ?Date Complete: ? 11/14/2016 ? By: ??System Interface ? Date Reported: ? 11/14/2016 ? Interpretation RESULT: Negative for HPV. No E6 or E7 mRNA is detected from HPV types 16,18,31,33,35, 39,45,51,52,56,58, 59,66, and 68 by catastrophe claims supervisor mediated amplification. Comments Document reviewed and electronically signed by: ? System Interface ? Report date: 11/14/2016 By the signature above, the attending physician certifies that he/she has personally conducted a gross and/or microscopic examination of the described specimens and rendered or confirmed the above diagnosis. End of Report [facility] 11/02/2016 11/06/2016 Jacinda Polishuk INSPECTOR SOLDERING PATHOLOGY ORDERABLES [facility] [address] [place] [address] documented in this encounter Visit Diagnoses Not on filedocumented in this encounter Care Teams Tennis Player Relationship Specialty Start Date End Date Unknown, Provider, PCP - General 11/06/16 documented as of this encounter
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
--- OUTSIDE RECORDS SUMMARY | 2024-01-08 15:45 | XMS_ITS | Encounter Summary ---
Author Organization [facility] Address [address] [place] [address] Care Team Providers Care Gis Scientist Name Role Phone Unknown, Provider Primary Care Provider [phone] Encounter Details Date Type Department Care Team (Late st Contact Info) Description 01/08/2024 Lab Requisition [facility] Pathology & Laboratory Medicine - [facility] [address] [place] [address] Outr Resulting Lab, Provider Social History Tobacco Use Types Packs/Day Years Used Date Smoking Tobacco: Never Assessed Sex and Gender Information Value Date Recorded Sex Assigned at Not on file Gender Identity Female 03/07/2022 14:17 EST Sexual Orientation Not on file documented as of this encounter Plan of Treatment Scheduled Orders Name Type Priority Associated Diagnoses Orde r Schedule ALPHA 1 ANTITRYPSIN Lab Routine Order ed: 01/08/2024 documented as of this encounter Visit Diagnoses Not on filedocumented in this encounter Care Teams Gis Scientist Relationship Specialty Start Date End Date Unknown, Provider, PCP - General 11/06/16 documented as of this encounter
--- OUTSIDE RECORDS SUMMARY | 2024-01-08 15:45 | XMS_ITS | Encounter Summary ---
[place] [address] Care Team Providers Care Middle School Principal Name Role Phone Adarsh Wynn MD Primary Care Provider [phone] Encounter Details Date Type Department Care Team (Late st Contact Info) Description 07/03/2016 Telephone Audiology at [address] [id number] Melinda Zepeda Social History Tobacco Use Types [...] on filedocumented in this encounter Care Teams Middle School Principal Relationship Specialty Start Date End Date Adarsh Wynn MD [facility] [address] [place], [place] [id number] PCP - General General Internal Medicine 05/25/1507/24 documented as of this encounter
--- OUTSIDE RECORDS SUMMARY | 2024-01-08 15:45 | XMS_ITS | Encounter Summary ---
Author Organization [facility] Address [address] [place] [address] Care Team Providers Care General Manager [employer] Data Cloud Name Role Phone Unknown, Provider Primary Care Provider [phone] Encounter Details Date Type Department Care Team (Late st Contact Info) Description 09/07/2022 Orders Only [facility] - [address] [address] Betzaida Hernandez RN Immunity status testing (Primary [...] examination documented in this encounter Care Teams General Manager [employer] Relationship Specialty Start Date End Date Unknown, Provider, PCP - General 11/06/16 documented as of this encounter
--- OUTSIDE RECORDS SUMMARY | 2024-01-08 15:45 | XMS_ITS | Encounter Summary ---
[place] [address] Care Team Providers Care Early Morning Babysitter Name Role Phone Adarsh Wynn MD Primary Care Provider [phone] Encounter Details Date Type Department Care Team (Late st Contact Info) Description 08/31/2015 Telephone [place] [phone] Lyric Wallace Social History Tobacco Use Types [...] called patient to move appointment to Dr. Domniique. Doing so would move this patient's appt up. I left a message for callback with my direct number. documented in this encounter Plan of Treatment Not on file documented as of this encounter Visit Diagnoses Not on filedocumented in this encounter Care Teams Early Morning Babysitter Relationship Specialty Start Date End Date Adarsh Wynn MD [facility] [address] [place] [address] PCP - General General Internal Medicine 05/25/1507/24 documented as of this encounter
== END 2024-01-08 15:41 | disposition home or self-care (01) ==
LOC: LBN 15:40
PROVIDERS: PCP Family Medicine; Visit Provider Family Medicine
DX: E78.5 Hyperlipidemia, unspecified (principal); G72.89 Other specified myopathies; Z12.39 Encounter for other screening for malignant neoplasm of breast
CPT/HCPCS: 88142; 87624

== ENCOUNTER 2024-01-15 16:10 | Outpatient (CLI) | payer BC, SELFPAY ==
--- OUTSIDE RECORDS SUMMARY | 2024-01-15 16:13 | XMS_ITS | Encounter Summary ---
Author Organization [facility] Address [facility] [place] [address] Care Team Providers Care Inspector Coated Fabrics Name Role Phone Ramiro Melo MD Primary Care Provider [phone] Reason for Visit * Physical Therapy (Routine) - Closed Specialty Diagnoses / Procedures Referred By Cheri silverman Referred To Contact Physical Therapy Diagnoses Acquired left hindfoot varus Edema of left lower leg History of arthroplasty of left ankle Jennifer Stanley APRN [facility] [place] [address] Marsha Murphy, PT [facility] PHYSICAL MEDICINE & [place] [address] Referral ID Status Reason Start Date Expiration Date V isits Requested Visits Authorized [id number] Closed Evaluate and Treat 10/23/2022 10/23/2023 30 30 Encounter Details Date Type Department Care Team (Late st Contact Info) Description 07/31/2023 11:00 AM EDT Office [place] [address] Marsha Murphy, PT [facility] PHYSICAL MEDIC[facility] & [place] [address] Secondary lymphedema; Hereditary lymphedema Social History Tobacco [...] on. Had bought compression knee highs at [employer] 12-15 mmhg, They wrinkle and cut in [...] for primary subtalar osteoarthritis in 2016 in [place] followed byleft hindfoot varus s/p lateral closing [...] care : lives with [facility] [employer], in [place], [place]. 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 [...] to self bandage and video sent via [facility] Compression bandage precautions: pt advised to wear [...] 3. Evaluate for pump MET 07/31/23 Therapy [employer] Goals 8 weeks 1. maintain reduction in [...] legs documented in this encounter Care Teams Inspector Coated Fabrics Relationship Specialty Start Date End Date Ramiro Melo MD [address] [place] [address] PCP - General Family Medicine 11/21/22 documented as of this encounter
--- OUTSIDE RECORDS SUMMARY | 2024-01-15 16:13 | XMS_ITS | Encounter Summary ---
Author Organization [facility] [place] [address] Care Team Providers Care Bulk Pallet Builder Name Role Phone Ramiro Melo MD Primary Care Provider [phone] Encounter Details Date Type Department Care Team [...] on filedocumented in this encounter Care Teams Bulk Pallet Builder Relationship Specialty Start Date End Date Ramiro Melo MD [address] [place] [address] PCP - General Family Medicine 11/21/22 documented as of this encounter
--- OUTSIDE RECORDS SUMMARY | 2024-01-15 16:13 | XMS_ITS | Encounter Summary ---
Author Organization [facility] [place] [address] Care Team Providers Care Director Business Management Name Role Phone Ramiro Melo MD Primary Care Provider [phone] Reason for Visit * Reason Onset Date Comments Questions 07/05/2023 Encounter Details Date Type Department Care Team (Late st Contact Info) Description 07/05/2023 Telephone [place] [address] Tio Mayo MD [facility] [place] [address] Questions Social History Tobacco Use Types Packs/Day [...] the new injury occur?: Best contact number: [phone] What is the question: Leydi is calling [...] on filedocumented in this encounter Care Teams Director Business Management Relationship Specialty Start Date End Date Ramiro Melo MD [address] [place] [address] PCP - General Family Medicine 11/21/22 documented as of this encounter
--- OUTSIDE RECORDS SUMMARY | 2024-01-15 16:13 | XMS_ITS | Encounter Summary ---
Author Organization [place] [address] Care Team Providers Care Reinforcing Metal Worker Name Role Phone Ramiro Melo MD Primary Care Provider [phone] Encounter Details Date Type Department Care Team [...] on filedocumented in this encounter Care Teams Reinforcing Metal Worker Relationship Specialty Start Date End Date Ramiro Melo MD [address] [place] [address] PCP - General Family Medicine 11/21/22 documented as of this encounter
--- OUTSIDE RECORDS SUMMARY | 2024-01-15 16:13 | XMS_ITS | Encounter Summary ---
Author Organization [facility] Address [facility] [place] [address] Care Team Providers Care Global Sourcing Manager Name Role Phone Ramiro Melo MD Primary Care Provider [phone] Encounter Details Date Type Department Care Team (Latest Contact Info) Description 12/04/2023 10:25 AM EDT - 12/04/2023 11:59 PM EDT Hospital Encounter XRay at [address] [place] [address] Acquired left hindfoot varus s/p lateral closing [...] Capsule Take 2,000 Units by mouth daily. 6879-8269 units prescribed albuteroL 90 mcg/actuation HFA Aerosol [...] views Left (Generic) (12/04/2023 10:37 AM EDT) MCE-5 Development WORKSTATION ID [id number] RAD Anatomical Region Laterality Modality Ankle Left Digital Radiogra phy Impressions 12/05/2023 9:05 AM EDT Uncomplicated total ankle arthroplasty. Thank you for letting us participate in the care of this patient. ??If you are a health care provider and have any questions regarding this report, please contact the number below. ??For patients who have questions please contact the health healthcare applications analyst that requested your imaging first. ? Narrative [...] who have questions please contactthe health healthcare applications analyst that requested your imaging first. 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 Mayo) documented in this encounter Care Teams Global Sourcing Manager Relationship Specialty Start Date End Date Ramiro Melo MD [address] [place] [address] PCP - General Family Medicine 11/21/22 documented as of this encounter
--- OUTSIDE RECORDS SUMMARY | 2024-01-15 16:13 | XMS_ITS | Encounter Summary ---
Author Organization [facility] [place] [address] Care Team Providers Care Hair Designer Name Role Phone Ramiro Melo MD Primary Care Provider [phone] Encounter Details Date Type Department Care Team [...] filedocumented in this encounter Care Teams Hair Designer Relationship Specialty Start Date End Date Ramiro Melo MD [address] [place] [address] PCP - General Family Medicine 11/21/22 documented as of this encounter
--- OUTSIDE RECORDS SUMMARY | 2024-01-15 16:13 | XMS_ITS | Encounter Summary ---
Author Organization [facility] Address [facility] [place] [address] Care Team Providers Care Vat Overhauler Name Role Phone Ramiro Melo MD Primary Care Provider [phone] Encounter Details Date Type Department Care Team (Late st Contact Info) Description 12/04/2023 Orders [place] [address] Cyn Murphy, PT [facility] PHYSICAL MEDICINE & [place] [address] Leg swelling Social History Tobacco Use Types [...] limb documented in this encounter Care Teams Vat Overhauler Relationship Specialty Start Date End Date Ramiro Melo MD [address] [place] [address] PCP - General Family Medicine 11/21/22 documented as of this encounter
--- OUTSIDE RECORDS SUMMARY | 2024-01-15 16:13 | XMS_ITS | Encounter Summary ---
Author Organization [facility] Address [facility] [place] [address] Care Team Providers Care Beef Cattle Grazier Name Role Phone Ramiro Melo MD Primary Care Provider [phone] Encounter Details Date Type Department Care Team (Late st Contact Info) Description 11/29/2023 Orders [place] [address] Jennifer Stanley [facility] [employer] [facility] [place] [address] Acquired left hindfoot varus s/p lateral closing [...] (Generic) (12/04/2023 10:37 AM EDT) WORKSTATION ID [id number] RAD Anatomical Region Laterality Modality Ankle Left Digital Radiogra phy Impressions 12/05/2023 9:05 AM EDT Uncomplicated total ankle arthroplasty. Thank you for letting us participate in the care of this patient. ??If you are a health care provider and have any questions regarding this report, please contact the number below. ??For patients who have questions please contact the health child care team lead that requested your imaging first. ? Electronically signed by: Yumiko Ward MD, [facility] ([phone]), at 12/05/2023 9:05 AM Narrative 12/05/2023 9:05 [...] have questions please contactthe health child care team lead that requested your imaging first. Electronically signed by: Yumiko Ward MD, [facility]([phone]), at 12/05/2023 9:05 AM Jennifer Stanley APRN IMG DX ORDERABLES documented in this encounter Visit Diagnoses Diagnosis Acquired left hindfoot varus s/p lateral closing wedge osteotomy 12/01/20, TAA 11/21/21 (Dr. 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 Mayo) documented in this encounter Care Teams Beef Cattle Grazier Relationship Specialty Start Date End Date Ramiro Melo MD [address] [place] [address] PCP - General Family Medicine 11/21/22 documented as of this encounter
--- OUTSIDE RECORDS SUMMARY | 2024-01-15 16:13 | XMS_ITS | Clinical Summary ---
Author Organization [facility] Address [facility] [place] [address] Care Team Providers Care Rural Electrification Engineer Name Role Phone Ramiro Melo MD Primary Care Provider [phone] Allergies Active Allergy Reactions Criticality Noted Date [...] Capsule Take 2,000 Units by mouth daily. 6205-8005 units prescribed Active acetaminophen (Tylenol) 500 mg [...] 11:40 AM EDT Office Visit Orthopaedics at [facility] [place] [address] Jennifer Stanley, BUS MATRON History of arthroplasty of left ankle 12/04/2023 10:25 AM EDT - 12/04/2023 11:59 PM EDT Hospital Encounter XRay at [address] [place] [address] Acquired left hindfoot varus s/p lateral closing wedge osteotomy 12/01/20, TAA 11/21/21 (Dr. Mayo) Discharge Disposition: Home 12/04/2023 8:00 AM EDT Office [place] [address] Cyn Murphy, PT Secondary lymphedema 12/04/2023 [place] [address] Cyn Murphy, PT Leg swelling 12/04/2023 Travel 12/02/2023 Travel 11/29/2023 [place] [address] Jennifer Stanley, BUS MATRON Acquired left hindfoot varus s/p lateral closing wedge osteotomy 12/01/20, TAA 11/21/21 (Dr. Mayo) from Last 3 Months Immunizations Name Administration Dates Next Due Covid-19 Monovalent (Merna/J&J) (0257-1586) Tdap (Adacel, Boostrix) 05/09/2016 Family History Medical [...] 05/09/2026 05/09/2016 Medical Devices Implanted Type Area Haircutter Device Identifier Shelf Expiration Date Model / Serial / Lot Graft Bone Filler [id number] Chips Canc Preservon Readigraft ([id number]) (Autoreq) - [id number] Implanted:Qty: 1 on 12/01/2020 by Tio Mayo MD at [facility] IMPLANTS Left: Ankle [facility] 02/07/2025 [id number] / [id number] / Staple [id number] Comp Nitinol Speed Titan ([id number]) (Autoreq) - [id number] Implanted:Qty: 1 on 12/01/2020 by Tio Mayo MD at [facility] IMPLANTS Left: Ankle [facility] 02/04/2023 [id number] / / [id number] Staple [id number] Comp Nitinol Speed Titan ([id number]) (Autoreq) - [id number] Implanted:Qty: 1 on 12/01/2020 by Tio Mayo MD at [facility] IMPLANTS Left: Ankle [facility] 05/09/2023 [id number] / / [id number] Component Talar Ankle Joint Sz 2 Infinity Adaptis ([id number]) - [id number] Implanted:Qty: 1 on 11/21/2021 by Tio Mayo MD at [facility] IMPLANTS Left: Ankle [facility] 07/22/2028 [id number] / / [id number] Infinity Adaptis Tibial Tray Size 3 Material [id number] Implanted:Qty: 1 on 11/21/2021 by Tio Mayo MD at [facility] Left: Ankle 09/22/2029 [id number] / / [id number] Infinity Everlast Cross-Linked Poly Insert Size 2+ H:8mm Implanted:Qty: 1 on 11/21/2021 by Tio Mayo MD at [facility] Left: Ankle 10/06/2027 [id number] / / [id number] Explanted Type Area Haircutter Device Identifier Shelf Expiration Date Model / Serial / Lot K Wire Fix [id number] Trocar Point Threaded Bth End Ss ([id number]) - [id number] Explanted:Qty : 1 on 12/01/2020 by Tio Mayo MD at [facility] IMPLANTS Left: Ankle [employer] MICRO[employer]RE [id number] S / / Pin Fix 7/64x9in Trocar Point Sgl End Ss Rolo ([id number]) - [id number] Explanted:Qty : 1 on 12/01/2020 by Tio Mayo MD at [facility] IMPLANTS Left: Ankle [employer] - MICROAIRE 1628-509TN S / / Pin Fix 5/32x9in Trocar Point Sgl End Ss Rolo ([id number]) - [id number] Explanted:Qty : 1 on 12/01/2020 by Tio Mayo MD at [facility] IMPLANTS Left: Ankle [employer] [...] views Left (Generic) (12/04/2023 10:37 AM EDT) Linked [employer] Signature WORKSTATION ID [id number] RAD Anatomical Region Laterality Modality Ankle Left Digital Radiogra phy Impressions 12/05/2023 9:05 AM EDT Uncomplicated total ankle arthroplasty. Thank you for letting us participate in the care of this patient. ??If you are a health care provider and have any questions regarding this report, please contact the number below. ??For patients who have questions please contact the health acute care nurse practitioner that requested your imaging first. ? Electronically signed by: Yumiko Ward MD, [facility] ([phone]), at 12/05/2023 9:05 AM Narrative 12/05/2023 9:05 [...] have questions please contactthe health acute care nurse practitioner that requested your imaging first. Electronically signed by: Yumiko Ward MD, [facility]([phone]), at 12/05/2023 9:05 AM Jennifer Stanley BUS MATRON IMG DX ORDERABLES * (ABNORMAL) Basic Metabolic Panel (non-fasting) (10/25/2021 2:51 PM EDT) Glucose 96 65 - 199 mg/dL [facility] Comment:Diabetes: >=200 mg/d L plus symptoms Blood Urea Nitrogen 18 8 - 18 mg/dL [facility] Creatinine 0.59(L) 0.70 - 1.20 mg/dL [facility] Sodium 141 135 - 145 mmol/L [facility] Potassium 4.1 3.5 - 5.0 mmol/L [facility] Comment: Please note: ??Patients with WBC >100,000 may have falsely elevated Potassium levels. ??For accurate Potassium quantification in these patients send serum separator tube (gold top) for subsequent determinations. ??Contact the Clinical Chemistry Laboratory if there are any questions. Chloride 104 98 - 107 mmol/L [facility] Carbon Dioxide 27 22 - 31 mmol/L [facility] Anion Gap 10 5 - 15 mmol/L [facility] Calcium 9.4 8.5 - 10.5 mg/dL [facility] Est Glomerular Filtration Rate 108 >=60 mL/min/1. 73 m?? [facility] Comment: This patient's estimated [...] Lab Francisco Maria MD CHEMISTRY ORDERAB LES [facility] [place] [address] from Last 3 Months or Most Recently Relevant to Health Maintenance Advance Directives Documents on File Type Date Recorded Patient Regulatory Affairs Strategy Specialist Expl anation Personal Regulatory Affairs Strategy Specialist 11/30/2020 2:39 PM * Attempt Cardiopulmonary Resuscitation - Inpatient (Latest Code Status on File) Date Activated Date Inactivated Comments 11/21/2021 10:08 AM 11/22/2021 5:30 PM Question Answer Comments Code Status decision made by: Patient * Attempt Cardiopulmonary Resuscitation - Inpatient Date Activated Date Inactivated Comments 12/01/2020 7:22 AM 12/01/2020 1:51 PM Question Answer Comments Code Status decision made by: Patient Care Teams Rural Electrification Engineer Relationship Specialty Start Date End Date Ramiro Melo MD [address] [place] [address] PCP - General Family Medicine 11/21/22
--- OUTSIDE RECORDS SUMMARY | 2024-01-15 16:13 | XMS_ITS | Encounter Summary ---
Author Organization [facility] [place] [address] Care Team Providers Care Command And Control Officer Name Role Phone Ramiro Melo MD Primary Care Provider [phone] Encounter Details Date Type Department Care Team [...] on filedocumented in this encounter Care Teams Command And Control Officer Relationship Specialty Start Date End Date Ramiro Melo MD [address] [place] [address] PCP - General Family Medicine 11/21/22 documented as of this encounter
--- OUTSIDE RECORDS SUMMARY | 2024-01-15 16:13 | XMS_ITS | Encounter Summary ---
Author Organization [facility] Address [facility] [place] [address] Care Team Providers Care Third Cook Name Role Phone Ramiro Melo MD Primary Care Provider [phone] Reason for Visit * Reason Comments Follow-up L TAA DOS 11/21/21 (C OE) Encounter Details Date Type Department Care Team (Late st Contact Info) Description 12/04/2023 11:40 AM EDT [place] [address] Jennifer Stanley, ROMINA [facility] [place] [address] History of arthroplasty of left ankle Social [...] some sitting and standing. Has well fitting Kadenze[employer] sneakers. Past medical history: Patient Active Problem [...] mild antalgia with start up Shoe wear: [employer] Assistive Devices: none Inspection: hind foot alignment [...] ankle documented in this encounter Care Teams Third Cook Relationship Specialty Start Date End Date Ramiro Melo MD [address] [place] [address] PCP - General Family Medicine 11/21/22 documented as of this encounter
--- OUTSIDE RECORDS SUMMARY | 2024-01-15 16:13 | XMS_ITS | Encounter Summary ---
Author Organization [facility] Address [facility] [place] [address] Care Team Providers Care Securities Lending Trader Name Role Phone Ramiro Melo MD Primary Care Provider [phone] Reason for Visit * Physical Therapy (Routine) - Authorized Specialty Diagnoses / Procedures Referred By Cheri silverman Referred To Contact Physical Therapy Diagnoses Acquired left hindfoot varus Mercedez Foley MD [facility] [place] [address] Physical Therapy, Jarret Bertrand [address] [place] [address] Referral ID Status Reason Start Date Expiration Date Visits Requested Visits Authorized [id number] Authorized Evaluate and Treat 07/25/2023 01/21/2024 20 20 Encounter Details Date Type Department Care Team (Late st Contact Info) Description 12/04/2023 8:00 AM EDT Office [place] [address] Marsha Murphy, PT [facility] PHYSICAL MEDICINE & [place] [address] Secondary lymphedema Social History Tobacco Use Types [...] on. Had bought compression knee highs at [employer] 12-15 mmhg, They wrinkle and cut in [...] for primary subtalar [place]oarthritis [place] followed byleft hindfoot varus s/p lateral closing [...] care : lives with [facility], in [place], [place]. 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 [...] self bandage and video sent via [facility] Compression bandage precautions: pt advised to [...] 3. Evaluate for pump MET 07/31/23 Therapy Heavy Repairer Goals 8 weeks 1. maintain reduction in [...] lymphedema documented in this encounter Care Teams Securities Lending Trader Relationship Specialty Start Date End Date Ramiro Melo MD [address] [facility] [address] [place] [address] PCP - General Family Medicine 11/21/22 documented as of this encounter
--- OUTSIDE RECORDS SUMMARY | 2024-01-15 16:13 | XMS_ITS | Encounter Summary ---
Author Organization [facility] [place] [address] Care Team Providers Care Legal Writing Professor Name Role Phone Ramiro Melo MD Primary Care Provider [phone] Reason for Visit * Reason Onset Date Comments Parking Placard 07/25/2023 Encounter Details Date Type Department Care Team (Late st Contact Info) Description 07/25/2023 [place] [address] Jennifer Stanley, AREA INTELLIGENCE TECHNICIAN [facility] [place] [address] Parking Placard Social History Tobacco Use Types [...] on filedocumented in this encounter Care Teams Legal Writing Professor Relationship Specialty Start Date End Date Ramiro Melo MD [address] [place] [address] PCP - General Family Medicine 11/21/22 documented as of this encounter
--- OUTSIDE RECORDS SUMMARY | 2024-01-15 16:13 | XMS_ITS | Encounter Summary ---
Author Organization [facility] [place] [address] Care Team Providers Care Fire Sprinkler Fitter Name Role Phone Ramiro Melo MD Primary Care Provider [phone] Encounter Details Date Type Department Care Team [...] on filedocumented in this encounter Care Teams Fire Sprinkler Fitter Relationship Specialty Start Date End Date Ramiro Melo MD [address] [place] [address] PCP - General Family Medicine 11/21/22 documented as of this encounter
--- OUTSIDE RECORDS SUMMARY | 2024-01-15 16:14 | XMS_ITS | Encounter Summary ---
Author Organization [facility] Address [facility] [place] [address] Care Team Providers Care Golf Course Equipment Operator Name Role Phone Ramiro Melo MD Primary Care Provider [phone] Reason for Visit * Physical Therapy (Routine) - Closed Specialty Diagnoses / Procedures Referred By Cheri silverman Referred To Contact Physical Therapy Diagnoses Acquired left hindfoot varus Edema of left lower leg History of arthroplasty of left ankle Jennifer Stanley APRN [facility] [address] Marsha Murphy, PT [facility] PHYSICAL MEDICINE & [place] [address] Referral ID Status Reason Start Date Expiration Date V isits Requested Visits Authorized [id number] Closed Evaluate and Treat 10/23/2022 10/23/2023 30 30 Encounter Details Date Type Department Care Team (Late st Contact Info) Description 04/17/2023 9:00 AM EST Office [place] [address] Marsha Murphy, PT [facility] PHYS[facility] [place] [address] Secondary lymphedema Social History Tobacco Use Types [...] on. Had bought compression knee highs at [employer] 12-15 mmhg, They wrinkle and cut in at the ankle andcut in behind the knee. Pt known to me from [employer] 08/26/21. Since last seen pt has been [...] for primary subtalar osteoarthritis in 2016 in [place] followed byleft hindfoot varus s/p lateral closing [...] care : lives with [facility], in [place], [place]. 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 [...] bandage and video sent via [facility] Compression bandage precautions: pt advised to [...] self care. 3. Evaluate for pump Therapy Wire Dropper Goals 8 weeks 1. maintain reduction in [...] lymphedema documented in this encounter Care Teams Golf Course Equipment Operator Relationship Specialty Start Date End Date Ramiro Melo MD [address] [place] [address] PCP - General Family Medicine 11/21/22 documented as of this encounter
--- OUTSIDE RECORDS SUMMARY | 2024-01-15 16:14 | XMS_ITS | Encounter Summary ---
Author Organization [facility] Address [facility] [place] [address] Care Team Providers Care Distribution Sales Representative Name Role Phone Jennifer Suarez APRN Primary Care Provider [phone] Encounter Details Date Type Department Care Team (Latest Contact Info) Description 12/06/2021 10:46 AM EDT - 12/06/2021 11:59 PM EDT Hospital Encounter XRay at [address] [place] [address] Tio Mayo MD [facility] [place] [address] Arthritis of left ankle Discharge Disposition: Home [...] Capsule Take 2,000 Units by mouth daily. 2258-1600 units prescribed albuteroL 90 mcg/actuation HFA Aerosol [...] have questions please contact the health career and technology education teacher that requested your imaging first. ? [...] who have questions please contactthe health career and technology education teacher that requested your imaging first. Tio Mayo MD IMG DX ORDERABLES documented in this encounter Visit Diagnoses Diagnosis Arthritis of left ankle Unspecified arthropathy, ankle and foot documented in this encounter Care Teams Distribution Sales Representative Relationship Specialty Start Date End Date Jennifer Suarez, TROLLEY WORKER [address] [place] [address] PCP - General Family Medicine 07/14/20 11/20/22 documented as of this encounter
--- OUTSIDE RECORDS SUMMARY | 2024-01-15 16:14 | XMS_ITS | Encounter Summary ---
Author Organization [facility] [place] [address] Care Team Providers Care Letter Stamping Machine Operator Name Role Phone Ramiro Melo MD Primary Care Provider [phone] Encounter Details Date Type Department Care Team (Late st Contact Info) Description 11/21/2022 Orders Only [place] [address] Jennifer Stanley APRN [facility] [place] [address] Lymphedema; Swelling of calf; Foot swelling Social [...] limb documented in this encounter Care Teams Letter Stamping Machine Operator Relationship Specialty Start Date End Date Ramiro Melo MD [address] [place], [place] [id number] PCP - General Family Medicine 11/21/22 documented as of this encounter
--- OUTSIDE RECORDS SUMMARY | 2024-01-15 16:14 | XMS_ITS | Encounter Summary ---
Author Organization [facility] Address [place] [address] Care Team Providers Care Design Supervisor Name Role Phone Jennifer Suarez APRN Primary Care Provider [phone] Reason for Visit * Reason Comments Follow-up L TAA DOS: 2 (SATISH) Encounter Details Date Type Department Care Team (Late st Contact Info) Description 01/06/2022 4:00 PM EDT Office [place] [address] Karey De PA [facility] [place] [address] Arthritis of left ankle Social History Tobacco [...] NAME: Susan Whitney AGE: 51 y.o. MR#: [id number] DATE OF VISIT: 01/06/2022 CHIEF COMPLAINT: 6 [...] have questions please contact the health care companion that requested your imaging first. ? Narrative [...] who have questions please contactthe health care companion that requested your imaging first. Iris Jackson MD IMG DX ORDERABLES documented in this encounter Visit Diagnoses Diagnosis Arthritis of left ankle Unspecified arthropathy, ankle and foot Arthritis of left ankle Unspecified arthropathy, ankle and foot documented in this encounter Care Teams Design Supervisor Relationship Specialty Start Date End Date Jennifer Suarez, ROMINA [address] [place] [address] PCP - General Family Medicine 07/14/20 11/20/22 documented as of this encounter
--- OUTSIDE RECORDS SUMMARY | 2024-01-15 16:14 | XMS_ITS | Encounter Summary ---
Author Organization [facility] Address [facility] [place] [address] Care Team Providers Care Pediatric Associate Name Role Phone Jennifer Suarez APRN Primary Care Provider [phone] Reason for Visit * Reason Onset Date Comments Disability Paperwork 11/30/2021 Encounter Details Date Type Department Care Team (Late st Contact Info) Description 11/30/2021 Telephone [place] [address] Tio Mayo MD [facility] [place] [address] Disability Paperwork Social History Tobacco Use Types [...] on filedocumented in this encounter Care Teams Pediatric Associate Relationship Specialty Start Date End Date Jennifer Suarez, ROMINA [address] [place] [address] PCP - General Family Medicine 07/14/20 11/20/22 documented as of this encounter
--- OUTSIDE RECORDS SUMMARY | 2024-01-15 16:14 | XMS_ITS | Encounter Summary ---
Author Organization [facility] Address [facility] [place] [address] Care Team Providers Care Electric Golf Cart Repairers Name Role Phone Jennifer Suarez APRN Primary Care Provider [phone] Encounter Details Date Type Department Care Team (Latest Contact Info) Description 02/21/2022 12:59 PM EST - 02/21/2022 11:59 PM [facility] Hospital Encounter XRay at [address] [place] [address] Iris Jackson MD [facility] [place] [address] Arthritis of left ankle Discharge Disposition: Home [...] Capsule Take 2,000 Units by mouth daily. 4667-0558 units prescribed albuteroL 90 mcg/actuation HFA Aerosol [...] have questions please contact the health child caregiver private home that requested your imaging first. ? Electronically signed by: Deb Michelle MD, [facility] ([phone]), at 02/21/2022 2:16 PM Narrative 02/21/2022 2:16 [...] who have questions please contactthe health child caregiver private home that requested your imaging first. Electronically signed by: Deb Michelle MD, [facility]([phone]), at 02/21/2022 2:16 PM Iris Jackson MD IMG DX ORDERABLES documented in this encounter Visit Diagnoses Diagnosis Arthritis of left ankle Unspecified arthropathy, ankle and foot documented in this encounter Care Teams Electric Golf Cart Repairers Relationship Specialty Start Date End Date Jennifer Suarez, ROMINA [address] [place] [address] PCP - General Family Medicine 07/14/20 11/20/22 documented as of this encounter
--- OUTSIDE RECORDS SUMMARY | 2024-01-15 16:14 | XMS_ITS | Encounter Summary ---
[place] [address] Care Team Providers Care Manager Fixed Income Name Role Phone Jennifer Suarez APRN Primary Care Provider [phone] Encounter Details Date Type Department Care Team (Late st Contact Info) Description 09/01/2021 [place]phone [place] [address] Sandra Weeks Social History Tobacco Use Types [...] Faxed to Brianna @ [employer] #[phone] for ,PT received successful confirmation of 8 pages including cover page documented in this encounter Plan of Treatment Not on file documented as of this encounter Visit Diagnoses Not on filedocumented in this encounter Care Teams Manager Fixed Income Relationship Specialty Start Date End Date Jennifer Suarez APRN [address] [place] [address] PCP - General Family Medicine 07/14/20 11/20/22 documented as of this encounter
--- OUTSIDE RECORDS SUMMARY | 2024-01-15 16:14 | XMS_ITS | Encounter Summary ---
Author Organization [facility] Address [facility] [place] [address] Care Team Providers Care Supervisor Home Energy Consultant Name Role Phone Jennifer Suarez ROMINA Primary Care Provider [phone] Encounter Details Date Type Department Care Team (Late st Contact Info) Description 02/21/2022 2:00 PM EST Office [place] [address] Jennifer Stanley APRN [facility] [place] [address] History of arthroplasty of left ankle (Primary [...] this encounter Progress Notes * Jennifer Stanley, [employer] SALES AND LENDING TEAM MEMBER - 02/21/2022 2:00 PM EST Arthroplasty/Orthopaedic History: [...] of infection. Susan has been ambulating with [employer] and working with PT. I personally reviewed her outside physical therapy progress notes from [facility] provider. She is using NSAID's and [...] questions please contact the health director of healthcare systems that requested your imaging first. ? Narrative [...] have questions please contactthe health director of healthcare systems that requested your imaging first. Jennifer Stanley APRN IMG DX ORDERABLES documented in this encounter Visit Diagnoses Diagnosis History of arthroplasty of left ankle- Primary History of arthroplasty of left ankle documented in this encounter Care Teams Supervisor Home Energy Consultant Relationship Specialty Start Date End Date Jennifer Suarez APRN [address] [place] [address] PCP - General Family Medicine 07/14/20 11/20/22 documented as of this encounter
--- OUTSIDE RECORDS SUMMARY | 2024-01-15 16:14 | XMS_ITS | Encounter Summary ---
Author Organization [facility] [place] [address] Care Team Providers Care Boiler House Inspector Name Role Phone Jennifer Suarez APRN Primary Care Provider [phone] Encounter Details Date Type Department Care Team (Late st Contact Info) Description 09/16/2021 Telephone [place] [address] Cyn Murphy, PT [facility] PHYSICAL MEDICINE & [place] [address] Social History Tobacco Use Types Packs/Day Years [...] on land line but no answering machine. [facility] message regarding the same was sent on 09/13/21. Cyn Dawn PT documented in this encounter Plan of Treatment Not on file documented as of this encounter Visit Diagnoses Not on filedocumented in this encounter Care Teams Boiler House Inspector Relationship Specialty Start Date End Date Jennifer Suarez, ROMINA [address] [place] [address] PCP - General Family Medicine 07/14/20 11/20/22 documented as of this encounter
--- OUTSIDE RECORDS SUMMARY | 2024-01-15 16:14 | XMS_ITS | Encounter Summary ---
Author Organization [facility] [place] [address] Care Team Providers Care Watch Train Assembler Name Role Phone Jennifer Suarez APRN Primary Care Provider [phone] Reason for Visit * Auth/Cert Specialty Diagnoses / Procedures Referred By Cheri silverman Referred To Contact Diagnoses Varus deformity, not elsewhere classified, left ankle Primary osteoarthritis, left ankle and foot Left ankle arthritis Procedures PRO ARTHROPLASTY ANKLE WITH IMPLANT TOTAL ANKLE ARTHROPLASTY (WRVU 14.42) Tio Covarrubias MD [facility] [place] [address] [facility] Referral ID Status Reason Start Date Expiration Date Visits Re quested Visits Authorized [id number] 1 1 Encounter Details Date Type Department Care Team (Latest Contact Info) Description 11/21/2021 5:47 AM EDT - 11/22/2021 3:30 PM EDT Hospital Encounter [place] [address] Tio Covarrubias MD [facility] [place] [address] Discharge Disposition: Home Social History Tobacco Use [...] this encounter Discharge Summaries * Kat Mo, SUPERVISOR HEADING - 11/21/2021 4:41 PM EDT Discharge Summary Patient Name: Susan Whitney Patient Age: 51 y.o. Language: Irish Race: White Ethnicity: Not nor Admit date: 11/21/2021 Discharge date and time: 11/22/2021 Attending Physician: Tio Covarrubias MD Discharge Physician: Tio Covarrubias MD Follow-up Recommendations for Providers: See discharge instructions for additional details. Future Appointments Date Time Provider Department Center 12/06/2021 11:00 AM [facility] DX ROOM 2 Xray [facility] Rad 12/06/2021 11:30 AM Karey De PA [facility] Inpatient Provider Contact Information: Tio Covarrubias MD Orthopedics: [phone] After hours and weekends, call [facility] Orthopaedic Surgeon, , and have the Orthopedic resident paged. [...] Hospitalization: Immunization History Administered Date(s) Administered ??? [employer] Covid-19 Vaccine 01/07/2021 ??? Tdap Vaccine 05/09/2016 [...] Cap Take 2,000 Units by mouth daily. 6541-9423 units prescribed 2,000 Units Refills: 0 gabapentin [...] as much as possible. Call your doctor ([phone]) if you develop: 1. Fever greater than 100.5 2. Severe nausea or vomiting 3. Increasing pain that is not controlled by pain medications 4. Increasing redness, swelling, or drainage from incisions 5. Change in sensation FOLLOW-UP APPOINTMENTS: 1. You will have follow-up appointments at [facility] as indicated below in Future Appointment and Orders. 2. You will need to have x-rays prior to your follow-up appointment listed below. Please come to Radiology, desk , 1 hour BEFORE that appointment for these x-rays. Future Appointments Date Time Provider Department Center 12/06/2021 11:00 AM [facility] DX ROOM 2 Xray [facility] Rad 12/06/2021 11:30 AM Karey De PA [facility] [place] [address] [place] [address] If you have questions or concerns: Sunday through Sunday, 8 AM - 5 PM, please call Dr. Tio Covarrubias MD's office at . If it is after 5 PM, the weekend, or holidays, please call and ask to speak with theOrthopedic resident on-call. General Instructions None Future Appointments and Orders Future Appointments and Orders Future Appointments Provider Department Dept Phone 12/06/2021 11:00 AM [facility] DX ROOM 2 XRay at [facility] Arrive at: [facility] [phone] Please go to [facility] ([place] [facility]). 12/06/2021 11:30 AM Karey De PA Orthopaedics at [facility] Arrive at: [facility] [phone] Primary Care Provider: Jennifer Suarez APRN [phone] Discharge References/Attachments None documented in this encounter [...] as much as possible. Call your doctor ([phone]) if you develop: Fever greater than 100.5 Severe nausea or vomiting Increasing pain that is not controlled by pain medications Increasing redness, swelling, or drainage from incisions Change in sensation FOLLOW-UP APPOINTMENTS: 1. You will have follow-up appointments at [facility] as indicated below in Future Appointment and Orders. 2. You will need to have x-rays prior to your follow-up appointment listed below. Please come to Radiology, desk 3T, 1 hour BEFORE that appointment for these x-rays. Future Appointments Date Time Provider Department Center 12/06/2021 11:00 AM [facility] DX ROOM 2 MH Xray [facility] Rad 12/06/2021 11:30 AM Karey De PA [facility] If you have questions or concerns: Sunday [...] Capsule Take 2,000 Units by mouth daily. 6823-3296 units prescribed albuteroL 90 mcg/actuation HFA Aerosol [...] Hannah MD PGY-4 Anesthesiology Regional Block Team #[id number] * Anibal Miles RN - 11/22/2021 3:29 PM EDT [facility] Short Stay Unit Discharge Note All relevant [...] SpO2 98 % Prasanna Perez OT Pager: [phone] * EllenChrisNika Daily, PT - 11/22/2021 12:14 [...] pac???s as noted on holter 01/2020 at [facility] , mild and occasional ??? Post-operative nausea and vomiting Last 2 uneventful, most recent here at [facility], see surigical notes from 12/01/20 Past Surgical History: Procedure Laterality Date ??? SECTION ??? ECTOPIC SURGERY x 2 ??? ORTHOPEDIC SURGERY ??? PRO ARTHROPLASTY ANKLE WITH IMPLANT Left 11/21/2021 TOTAL ANKLE ARTHROPLASTY (WRVU 14.42) performed by Tio Covarrubias MD at [facility] MAIN OR ??? PRO OSTEOTOMY HEEL BONE Left 12/01/2020 OSTEOTOMY, CALCANEUS (WRVU 9.73) performed by Tio Covarrubias MD at [facility] MAIN OR ??? PRO REMOVAL DEEP IMPLANT Left 12/01/2020 REMOVAL OF IMPLANT, DEEP, FOOT (WRVU 5.96) performed by Tio Covarrubias MD at [facility] MAIN OR ??? TUBAL LIGATION ??? XR FLUORO INJECTION DRAINAGE JOINT MD LEFT Left 09/06/2020 XR Fluoro Guided Joint Injection Medium Left 09/06/2020 Janell Shah, SUPERVISOR HEADING [facility] RAD XRAY Active Non-Hospital Problems Diagnosis ??? 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 Based on current presentation, recommend patient discharge [...] IN / OUT: First session:; Second Session: 3530-3490 Total Minutes, Physical Therapy: 44 Billing Code: mod ev, TEF Collette Nuñez , [facility] Physical Therapy Inpatient Rehabilitation Department Patient status, treatment interventions, and goals discussed with student. I am in agreement with all details and associated flowsheet rows as documented and was present for all aspects of the patient treatment session. NIKA LARES, PT Pager # [phone] * Kartik Duong MD - 11/22/2021 6:38 [...] Time Provider Department Center 12/06/2021 11:00 AM [facility] DX ROOM 2 MH Xray [facility] Rad 12/06/2021 11:30 AM Karey De PA [facility] * Freddie Walker MD - 11/21/2021 10:22 [...] Time Provider Department Center 12/06/2021 11:00 AM [facility] DX ROOM 2 Xray [facility] Rad 12/06/2021 11:30 AM Karey De PA [facility] * Bianca Rizo RN - 11/21/2021 10:09 [...] planning on spending the night in the [facility]. Tio Covarrubias MD [place] Orthopaedic Surgery Attending documented in this encounter Miscellaneous Notes * Op Note - Tio Covarrubias MD - 11/21/2021 7:53 AM EDT [facility] Operative Note Patient Name: Susan Whitney : [id number] MR#: [id number] Case Date: 11/21/2021 Surgeon: Surgeon(s) and Role: [...] Implant Name Type Inv. Item Serial No. Demurrage Clerk Lot No. LRB No. Used Action infinity adaptis tibial tray size 3 material [id number] Left 1 Implanted COMPONENT TALAR ANKLE JOINT SZ 2 INFINITY ADAPTIS ([id number]) - [id number] IMPLANTS COMPONENT TALAR ANKLE JOINT SZ 2 INFINITY ADAPTIS ([id number]) Raidarrr [facility] - Voyat [id number] Left 1 Implanted infinity everlast cross-linked poly insert size 2+ h:8mm [id number] Left 1 Implanted Description of procedure: After [...] checked its depth. We used a lamina softball winder to anchor the tibial trial and then [...] tibial baseplate and put it on the personnel scheduler. We lined up the pegs and used [...] 9:23 AM EDT Arthroplasty Ankle With Implant ([id number]) 11/21/2021 7:23 AM EDT Left ankle arthritis [...] Routine documented in this encounter Care Teams Watch Train Assembler Relationship Specialty Start Date End Date Jennifer Suarez, ROMINA [address] [place] [address] PCP - General Family Medicine 07/14/20 11/20/22 documented as of this encounter
--- OUTSIDE RECORDS SUMMARY | 2024-01-15 16:14 | XMS_ITS | Encounter Summary ---
Author Organization [facility] [place] [address] Care Team Providers Care Sign Maintenance Name Role Phone Ramiro Melo MD Primary Care Provider [phone] Encounter Details Date Type Department Care Team (Late st Contact Info) Description 11/24/2022 Orders Only [place] [address] Tio Mayo MD [facility] [place] [address] Pain of left lower extremity Social History [...] extremity documented in this encounter Care Teams Sign Maintenance Relationship Specialty Start Date End Date Ramiro Melo MD [address] [place] [address] PCP - General Family Medicine 11/21/22 documented as of this encounter
--- OUTSIDE RECORDS SUMMARY | 2024-01-15 16:14 | XMS_ITS | Encounter Summary ---
Author Organization [facility] Address [facility] [place] [address] Care Team Providers Care Complaint Supervisor Name Role Phone Ramiro Melo MD Primary Care Provider [phone] Encounter Details Date Type Department Care Team (Latest Contact Info) Description 11/21/2022 12:21 PM EDT - 11/21/2022 11:59 PM EDT Hospital Encounter XRay at [address] [place] [address] Jennifer Stanley, METAL FABRICATION SUPERVISOR [facility] [place] [address] History of arthroplasty of left ankle Discharge [...] Capsule Take 2,000 Units by mouth daily. 1678-9784 units prescribed albuteroL 90 mcg/actuation HFA Aerosol [...] have questions please contact the health career technical supervisor that requested your imaging first. ? Narrative [...] who have questions please contactthe health career technical supervisor that requested your imaging first. Jennifer Stanley APRN IMG DX ORDERABLES documented in this encounter Visit Diagnoses Diagnosis History of arthroplasty of left ankle documented in this encounter Care Teams Complaint Supervisor Relationship Specialty Start Date End Date Ramiro Melo MD [address] [place] [address] PCP - General Family Medicine 11/21/22 documented as of this encounter
--- OUTSIDE RECORDS SUMMARY | 2024-01-15 16:14 | XMS_ITS | Encounter Summary ---
Author Organization [facility] Address [facility] [place] [address] Care Team Providers Care Yield Improvement Engineer Name Role Phone Jennifer Suarez ROMINA Primary Care Provider [phone] Reason for Visit * Reason Comments Follow-up Post Op L TAA DOS: 2 (SATISH) Encounter Details Date Type Department Care Team (Late st Contact Info) Description 05/23/2022 1:00 PM EST Office [place] [phone] Jennifer Stanley APRN [facility] DR ORTHOPAEDIC [place] [address] History of arthroplasty of left ankle (Primary [...] this encounter Progress Notes * Jennifer Stanley, WEIGHT LOSS SALES CONSULTANT - 05/23/2022 1:00 PM EST Arthroplasty/Orthopaedic History: [...] chills. 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 No new RTW forms requested. [employer] applications: Ok to update today. Pt agrees, [...] who have questions please contact the health children's zoo caretaker that requested your imaging first. ? Electronically signed by: Gifty Cruz MD, [facility] ([phone]), at 11/21/2022 4:54 PM Narrative 11/21/2022 4:54 [...] patients who have questions please contactthe health children's zoo caretaker that requested your imaging first. Electronically signed by: Gifty Cruz MD, [facility]([phone]), at 11/21/2022 4:54 PM Jennifer Stanley APRN IMG DX ORDERABLES documented in this encounter Visit Diagnoses Diagnosis History of arthroplasty of left ankle- Primary History of arthroplasty of left ankle documented in this encounter Care Teams Yield Improvement Engineer Relationship Specialty Start Date End Date Jennifer Suarez APRN [address] [address] PCP - General Family Medicine 07/14/20 11/20/22 documented as of this encounter
--- OUTSIDE RECORDS SUMMARY | 2024-01-15 16:14 | XMS_ITS | Encounter Summary ---
Author Organization [facility] Address [facility] [place] [address] Care Team Providers Care Neckties Painter Name Role Phone Jennifer Suarez APRN Primary Care Provider [phone] Reason for Referral * Physical Therapy (Routine) - Closed Specialty Diagnoses / Procedures Referred By Cheri silverman Referred To Contact Diagnoses Arthritis of left ankle Karey De PA [facility] [place] [address] Referral ID Status Reason Start Date Expiration Date V isits Requested Visits Authorized [id number] Closed Evaluate and Treat 12/06/2021 06/04/2022 12 12 Reason for Visit * Reason Comments Follow Up Surgery Encounter Details Date Type Department Care Team (Late st Contact Info) Description 12/06/2021 11:30 AM EDT Office Visit [place] [address] Karey De PA [facility] ORTHOPAEDIC SURGERY MEDICINE [place], [place] [id number] Arthritis of left ankle; Acquired left hindfoot [...] NAME: Susan Whitney AGE: 51 y.o. MR#: [id number] DATE OF VISIT: 12/06/2021 CHIEF COMPLAINT: 2 [...] now roughly 2 weeks out post 11/21/21 ([facility] LEFT total ankle arthroplasty [...] ankle documented in this encounter Care Teams Neckties Painter Relationship Specialty Start Date End Date Jennifer Suarez, SAP PROJECT MANAGER [address] [facility] [place] [address] PCP - General Family Medicine 07/14/20 11/20/22 documented as of this encounter
--- OUTSIDE RECORDS SUMMARY | 2024-01-15 16:14 | XMS_ITS | Encounter Summary ---
Author Organization [facility] [place] [address] Care Team Providers Care Court Commissioner Name Role Phone Jennifer Suarez APRN Primary Care Provider [phone] Encounter Details Date Type Department Care Team [...] on filedocumented in this encounter Care Teams Court Commissioner Relationship Specialty Start Date End Date Jennifer Suarez APRN [address] [place] [address] PCP - General Family Medicine 07/14/20 11/20/22 documented as of this encounter
--- OUTSIDE RECORDS SUMMARY | 2024-01-15 16:14 | XMS_ITS | Encounter Summary ---
Author Organization [facility] Address [facility] [place] [address] Care Team Providers Care Band Ripsaw Operator Name Role Phone Ramiro Melo MD Primary Care Provider [phone] Reason for Visit * Physical Therapy (Routine) - Closed Specialty Diagnoses / Procedures Referred By Cheri silverman Referred To Contact Physical Therapy Diagnoses Acquired left hindfoot varus Edema of left lower leg History of arthroplasty of left ankle Jennifer Stanley APRN [facility] [place] [address] Marsha Murphy, PT [facility] PHYSICAL MEDICINE & [place] [address] Referral ID Status Reason Start Date Expiration Date V isits Requested Visits Authorized [id number] Closed Evaluate and Treat 10/23/2022 10/23/2023 30 30 Encounter Details Date Type Department Care Team (Late st Contact Info) Description 11/21/2022 9:00 AM EDT Office Visit [place] [address] Marsha Murphy, PT [facility] PHYSICAL MEDICINE & [place] [address] Hereditary lymphedema Social History Tobacco Use Types [...] on. Had bought compression knee highs at [employer] 12-15 mmhg, They wrinkle and cut in at the ankle andcut in behind the knee. Pt known to me from [employer] 08/26/21. Since last seen pt has been [...] for primary subtalar osteoarthritis in 2016 in [place] followed byleft hindfoot varus s/p lateral closing [...] care : lives with [facility] [employer], in [place], [place]. 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 [...] to self bandage and video sent via [facility] Compression bandage precautions: pt advised [...] garments. 2. independent in self care. Therapy [facility] Goals 8 weeks 1. maintain reduction in [...] legs documented in this encounter Care Teams Band Ripsaw Operator Relationship Specialty Start Date End Date Ramiro Melo MD [employer] [address] [address] PCP - General Family Medicine 11/21/22 documented as of this encounter
--- OUTSIDE RECORDS SUMMARY | 2024-01-15 16:14 | XMS_ITS | Encounter Summary ---
Author Organization [facility] Address [facility] [place] [address] Care Team Providers Care Tennis Desk Team Member Name Role Phone Jennifer Suarez APRN Primary Care Provider [phone] Encounter Details Date Type Department Care Team (Latest Contact Info) Description 10/25/2021 2:30 PM EDT Clinical [place] [phone] Preop examination; Arthritis of left ankle; History [...] 2:51 PM EDT) Neutrophil % 63.0 % [facility] Neutrophil Absolute 4.57 1.70 - 6.10 x10(3)/[facility] Lymph % 25.1 % [facility] Lymphocytes Abs 1.8 0.9 - 3.2 x10(3)/[facility] Monocyte % 9.2 % [facility] Monocyte Abs 0.7 0.3 - 0.9 x10(3)/[facility] Eos % 1.4 % [facility] Eosinophils Abs 0.1 0.0 - 0.4 x10(3)/[facility] Basophil % 0.7 % [facility] Baso Absolute 0.0 0.0 - 0.1 x10(3)/[facility] Immature Gran % 0.60 % [facility] Comment: Immature granulocytes(IG's)percentage and absolute count will include metamyelocytes, myelocytes, and promyelocytes. Blood smears from CBCs yielding IG's will be scanned manually for concordance. If this scan disagrees with the automated IG or if promyelocytes are noted, a manual differential will be performed. Immature Gran Absolute 0.04 0.00 - 0.04 x10(3)/[facility] Blood 10/25/2021 2:51 PM EDT 10/25/2021 3:07 PM EDT Narrative Resulting Agency Comment Spec In Lab Francisco Maria MD HEMATOLOGY ORDERA BLES [facility] [place] [address] * (ABNORMAL) Hemogram (10/25/2021 2:51 PM EDT) White Blood Cell 7.2 4.0 - 9.5 x10(3)/[facility] LABORAT[facility] Red Blood Cell 4.75 4.00 - 5.21 x10(6)/[facility] Hemoglobin 12.4 11.7 - 15.5 g/dL [facility] Hematocrit 39.3 35.7 - 45.8 % [facility] Mean Cell Volume 82.7 82.6 - 94.4 fL [facility] Mean Cell Hemoglobin 26.1(L) 27.1 - 32.0 pg [facility] Mean Cell Hemoglobin Concentration 31.6(L) 31.7 - 35.0 g/dL [facility] Platelet 327 145 - 357 x10(3)/[facility] RDW Standard Deviation 43.5 37.0 - 46.0 [facility] RDW coefficient of variation 14.3(H) 11.5 - 14.1 % [facility] Mean Platelet Volume 10.0 7.6 - 12.9 [facility]ORY NRBC% auto 0.0 % [facility] NRBC Absolute 0.000 0.000 - 0.000 x10(3)/[facility] Blood 10/25/2021 2:51 PM EDT 10/25/2021 3:07 PM EDT Narrative Resulting Agency Comment Spec In Lab Francisco Maria MD HEMATOLOGY ORDERA DANIES [facility] [place] [address] * (ABNORMAL) Basic Metabolic Panel (non-fasting) (10/25/2021 2:51 PM EDT) Glucose 96 65 - 199 mg/dL [facility] Comment:Diabetes: >=200 mg/d L plus symptoms Blood Urea Nitrogen 18 8 - 18 mg/dL [facility] Creatinine 0.59(L) 0.70 - 1.20 mg/dL [facility] Sodium 141 135 - 145 mmol/L [facility] Potassium 4.1 3.5 - 5.0 mmol/L [facility] Comment: Please note: ??Patients with WBC >100,000 may have falsely elevated Potassium levels. ??For accurate Potassium quantification in these patients send serum separator tube (gold top) for subsequent determinations. ??Contact the Clinical Chemistry Laboratory if there are any questions. Chloride 104 98 - 107 mmol/L [facility] Carbon Dioxide 27 22 - 31 mmol/L [facility] Anion Gap 10 5 - 15 mmol/L [facility] Calcium 9.4 8.5 - 10.5 mg/dL [facility] Est Glomerular Filtration Rate 108 >=60 mL/min/1. 73 m?? [facility] Comment: This patient's estimated GFR [...] MD CHEMISTRY ORDERAB LES Performing Organization Address City/State/[facility] Co de Phone Number [facility] [place] [address] documented in this encounter Visit Diagnoses Diagnosis Preop examination Preoperative examination, unspecified Arthritis of left ankle Unspecified arthropathy, ankle and foot History of gastrectomy Acquired absence of organ, stomach documented in this encounter Care Teams Tennis Desk Team Member Relationship Specialty Start Date End Date Jennifer Suarez, ROMINA [address] [place] [address] PCP - General Family Medicine 07/14/20 11/20/22 documented as of this encounter
--- OUTSIDE RECORDS SUMMARY | 2024-01-15 16:14 | XMS_ITS | Encounter Summary ---
Author Organization [facility] Address [facility] [place] [address] Care Team Providers Care Galvanizer Zinc Name Role Phone Jennifer Suarez ROMINA Primary Care Provider [phone] Encounter Details Date Type Department Care Team (Latest Contact Info) Description 05/23/2022 12:06 PM EST - 05/23/2022 11:59 PM [facility] Hospital Encounter XRay at [address] [place] [address] Jennifer Stanley APRN [facility] [place] [address] History of arthroplasty of left ankle Discharge [...] Capsule Take 2,000 Units by mouth daily. 6923-5787 units prescribed albuteroL 90 mcg/actuation HFA Aerosol [...] questions please contact the health urgent care technician that requested your imaging first. ? Electronically signed by: MEGAN QUARLES [facility] ([phone]), at 05/23/2022 2:18 PM Narrative 05/23/2022 2:18 [...] have questions please contactthe health urgent care technician that requested your imaging first. Electronically signed by: MEGAN QUARLES [facility]([phone]), at 05/23/2022 2:18 PM Jennifer Stanley APRN IMG DX ORDERABLES documented in this encounter Visit Diagnoses Diagnosis History of arthroplasty of left ankle documented in this encounter Care Teams Galvanizer Zinc Relationship Specialty Start Date End Date Jennifer Suarez APRN [address] [place] [address] PCP - General Family Medicine 07/14/20 11/20/22 documented as of this encounter
--- OUTSIDE RECORDS SUMMARY | 2024-01-15 16:14 | XMS_ITS | Encounter Summary ---
Author Organization [facility] Address [facility] [place] [address] Care Team Providers Care Heel Varnisher Name Role Phone Jennifer Suarez APRN Primary Care Provider [phone] Reason for Visit * Reason Comments Pre-op Exam Encounter Details Date Type Department Care Team (Late st Contact Info) Description 10/25/2021 1:30 PM EDT [place] [address] Francisco Maria MD [facility] [place] [address] Preop examination; Arthritis of left ankle; History [...] Capsule Take 2,000 Units by mouth daily. 7034-2051 units prescribed ??? 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 ARISCAT/CANET Score - estimates the risk of postoperative pulmonary complications as being low ~3.5%. Per the ACS NSQIP calculator I estimated the following. Patient instructions: Take vitamin D3 8134-7726 units daily until end of June. documented [...] CHEMISTRY ORDERAB LES [facility] [place] [address] documented in this encounter Visit Diagnoses Diagnosis Preop examination Preoperative examination, unspecified Arthritis of left ankle Unspecified arthropathy, ankle and foot History of gastrectomy Acquired absence of organ, stomach documented in this encounter Care Teams Heel Varnisher Relationship Specialty Start Date End Date Jennifer Suarez, ROMINA [address] [place] [address] PCP - General Family Medicine 07/14/20 11/20/22 documented as of this encounter
--- OUTSIDE RECORDS SUMMARY | 2024-01-15 16:14 | XMS_ITS | Encounter Summary ---
Author Organization [place] [address] Care Team Providers Care Conveyor System Dispatcher Name Role Phone Jennifer Suarez APRN Primary Care Provider [phone] Encounter Details Date Type Department Care Team (Late st Contact Info) Description 09/07/2021 Orders [place] [address] Tio Mayo MD [facility] [place] [address] Edema of left lower leg (Primary Dx); [...] Gael documented in this encounter Care Teams Conveyor System Dispatcher Relationship Specialty Start Date End Date Jennifer Suarez APRN [address] [place], [place] [id number] PCP - General Family Medicine 07/14/20 11/20/22 documented as of this encounter
--- OUTSIDE RECORDS SUMMARY | 2024-01-15 16:14 | XMS_ITS | Encounter Summary ---
[place] [address] Care Team Providers Care Statuary Painter Name Role Phone Jennifer Suarez APRN Primary Care Provider [phone] Encounter Details Date Type Department Care Team (Late st Contact Info) Description 09/23/2021 [place]phone [place] [address] Sandra Weeks Social History Tobacco Use Types [...] - 09/23/2021 3:17 PM EDT Faxed to [facility] @ [phone] for ARSALANPT. Received successful confirmation of 11 pages including cover page documented in this encounter Plan of Treatment Not on file documented as of this encounter Visit Diagnoses Not on filedocumented in this encounter Care Teams Statuary Painter Relationship Specialty Start Date End Date Jennifer Suarez APRN [address] [place] [address] PCP - General Family Medicine 07/14/20 11/20/22 documented as of this encounter
--- OUTSIDE RECORDS SUMMARY | 2024-01-15 16:14 | XMS_ITS | Encounter Summary ---
Author Organization [facility] [place] [address] Care Team Providers Care Take Off Man Name Role Phone Ramiro Melo MD Primary Care Provider [phone] Encounter Details Date Type Department Care Team (Late st Contact Info) Description 11/22/2022 Orders [place] [address] Jennifer Stanley APRN [facility] [place] [address] Lymphedema; Swelling of calf; Foot swelling Social [...] limb documented in this encounter Care Teams Take Off Man Relationship Specialty Start Date End Date Ramiro Melo MD [address] [place], [place] [id number] PCP - General Family Medicine 11/21/22 documented as of this encounter
--- OUTSIDE RECORDS SUMMARY | 2024-01-15 16:14 | XMS_ITS | Encounter Summary ---
Author [facility] [place] [address] Care Team Providers Care Room Service Attendant Name Role Phone Jennifer Suarez APRN Primary Care Provider [phone] Reason for Visit * Auth/Cert Specialty Diagnoses / Procedures Referred By Cheri silverman Referred To Contact Diagnoses Varus deformity, not elsewhere classified, left ankle Primary osteoarthritis, left ankle and foot Left ankle arthritis Procedures PRO ARTHROPLASTY ANKLE WITH IMPLANT TOTAL ANKLE ARTHROPLASTY (WRVU 14.42) Tio Covarrubias MD [facility] [address] [facility] Referral ID Status Reason Start Date Expiration Date Visits Re quested Visits Authorized [id number] 1 1 Encounter Details Date Type Department Care Team (Late st Contact Info) Description 11/21/2021 7:30 AM EDT - 11/21/2021 11:13 AM EDT Surgery [place] [address] Tio Covarrubias MD [facility] [place] [address] TOTAL ANKLE ARTHROPLASTY (WRVU 14.42) Social History [...] this encounter Discharge Summaries * Kat Mo, FINANCE MGR - 11/21/2021 4:41 PM EDT Discharge Summary Patient Name: Susan Whitney Patient Age: 51 y.o. Language: Ghanaian Race: White Ethnicity: Not nor Admit date: 11/21/2021 Discharge date and time: 11/22/2021 Attending Physician: Tio Covarrubias MD Discharge Physician: Tio Covarrubias MD Follow-up Recommendations for Providers: See discharge instructions for additional details. Future Appointments Date Time Provider Department Center 12/06/2021 11:00 AM [facility] DX ROOM 2 MH Xray [facility] Rad 12/06/2021 11:30 AM Karey De PA [facility] ORTH 3C [facility] Inpatient Provider Contact Information: Tio Covarrubias MD Orthopedics: [phone] After hours and weekends, call [facility] Rack Production Worker, , and have the Orthopedic resident paged. [...] Hospitalization: Immunization History Administered Date(s) Administered ??? [employer] Covid-19 Vaccine 01/07/2021 ??? Tdap Vaccine 05/09/2016 [...] Cap Take 2,000 Units by mouth daily. 7718-5373 units prescribed 2,000 Units Refills: 0 gabapentin [...] as much as possible. Call your doctor ([phone]) if you develop: 1. Fever greater than 100.5 2. Severe nausea or vomiting 3. Increasing pain that is not controlled by pain medications 4. Increasing redness, swelling, or drainage from incisions 5. Change in sensation FOLLOW-UP APPOINTMENTS: 1. You will have follow-up appointments at [facility] as indicated below in Future Appointment and Orders. 2. You will need to have x-rays prior to your follow-up appointment listed below. Please come to Radiology, desk , 1 hour BEFORE that appointment for these x-rays. Future Appointments Date Time Provider Department Center 12/06/2021 11:00 AM [facility] DX ROOM 2 Xray [facility] Rad 12/06/2021 11:30 AM Karey De PA [facility] ORTH 3C [facility] If you have questions or concerns: Sunday through Sunday, 8 AM - 5 PM, please call Dr. Tio Covarrubias MD's office at . If it is after 5 PM, the weekend, or holidays, please call and ask to speak with theOrthopedic resident on-call. General Instructions None Future Appointments and Orders Future Appointments and Orders Future Appointments Provider Department Dept Phone 12/06/2021 11:00 AM [facility] DX ROOM 2 XRay at [facility] Arrive at: Management And Budget Analyst Area [phone] Please go to Management And Budget Analyst Area ([facility]). 12/06/2021 11:30 AM Karey De PA Orthopaedics at [facility] Arrive at: Management And Budget Analyst Area [phone] Primary Care Provider: Jennifer Suarez APRN [phone] Discharge References/Attachments None documented in this encounter [...] as much as possible. Call your doctor ([phone]) if you develop: Fever greater than 100.5 Severe nausea or vomiting Increasing pain that is not controlled by pain medications Increasing redness, swelling, or drainage from incisions Change in sensation FOLLOW-UP APPOINTMENTS: 1. You will have follow-up appointments at [facility] as indicated below in Future Appointment and Orders. 2. You will need to have x-rays prior to your follow-up appointment listed below. Please come to Radiology, desk 3T, 1 hour BEFORE that appointment for these x-rays. Future Appointments Date Time Provider Department Center 12/06/2021 11:00 AM [facility] DX ROOM 2 MH Xray [facility] Rad 12/06/2021 11:30 AM Karey De PA [facility] ORTH 3C [facility] If you have questions or concerns: Sunday [...] Capsule Take 2,000 Units by mouth daily. 6237-1391 units prescribed albuteroL 90 mcg/actuation HFA Aerosol [...] Hannah MD PGY-4 Anesthesiology Regional Block Team #[id number] * Anibal Miles RN - 11/22/2021 3:29 PM EDT [facility] Short Stay Unit Discharge Note All [...] SpO2 98 % Prasanna Perez OT Pager: [phone] * Nika Lares, PT - 11/22/2021 12:14 PM EDT Physical Therapy Evaluation Patient profile: Susan Whintey is a 51 y.o. right handed female [...] pac???s as noted on holter 01/2020 at [facility] , mild and occasional ??? Post-operative nausea and vomiting Last 2 uneventful, most recent here at [facility], see surigical notes from 12/01/20 Past Surgical History: Procedure Laterality Date ??? SECTION ??? ECTOPIC SURGERY x 2 ??? ORTHOPEDIC SURGERY ??? PRO ARTHROPLASTY ANKLE WITH IMPLANT Left 11/21/2021 TOTAL ANKLE ARTHROPLASTY (WRVU 14.42) performed by Tio Covarrubias MD at [facility] MAIN OR ??? PRO OSTEOTOMY HEEL BONE Left 12/01/2020 OSTEOTOMY, CALCANEUS (WRVU 9.73) performed by Tio Covarrubias MD at [facility] MAIN OR ??? PRO REMOVAL DEEP IMPLANT Left 12/01/2020 REMOVAL OF IMPLANT, DEEP, FOOT (WRVU 5.96) performed by Tio Covarrubias MD at [facility] MAIN OR ??? TUBAL LIGATION ??? 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 Equipment at home: bathroom equipment as [...] least 2+/5, biceps 5/5, triceps 5/5, good cover creaser - RLE- hip abduction at least 2+/5, [...] assistive devices, and her online rehab program ([facility]). Based on current presentation, recommend patient discharge [...] IN / OUT: First session:; Second Session: [id number] Total Minutes, Physical Therapy: 44 Billing Code: mod ev, TEF Collette Nuñez , [facility] Physical Therapy Inpatient Rehabilitation Department Patient status, treatment interventions, and goals discussed with student. I am in agreement with all details and associated flowsheet rows as documented and was present for all aspects of the patient treatment session. NIKA LARES, PT Pager # [phone] * Ad, Kartik Mcclure MD - 11/22/2021 6:38 AM EDT ORTHOPAEDIC SURGERY INPATIENT PROGRESS NOTE Patient Name: Susan Whitney Age: 51 y.o. Surgery/Issue: L Total Ankle Arthroplasty Attending: Dr. Covarrbuias Date of surgery: 11/21/2021 SUBJECTIVE / INTERVAL [...] Time Provider Department Center 12/06/2021 11:00 AM [facility] DX ROOM 2 MH Xray [facility] Rad 12/06/2021 11:30 AM Karey De PA [facility] ORTH 3C [facility] * Freddie Walker MD - 11/21/2021 10:22 [...] Time Provider Department Center 12/06/2021 11:00 AM [facility] DX ROOM 2 Xray [facility] Rad 12/06/2021 11:30 AM Karey De PA [facility] ORTH 3C [facility] * Bianca Rizo RN - 11/21/2021 10:09 [...] [facility] the [facility]. Tio Covarrubias MD [place] Orth[facility] Attending documented in this encounter Miscellaneous Notes * Op Note - Tio Covarrubias MD - 11/21/2021 7:53 AM EDT [facility] Operative Note Patient Name: Susan Whitney : [id number] MR#: [id number] Case Date: 11/21/2021 Surgeon: Surgeon(s) and Role: [...] Implant Name Type Inv. Item Serial No. Timber Cruiser Lot No. LRB No. Used Action infinity adaptis tibial tray size 3 material [id number] Left 1 Implanted COMPONENT TALAR ANKLE JOINT SZ 2 INFINITY ADAPTIS ([id number]) - [id number] IMPLANTS COMPONENT TALAR ANKLE JOINT SZ 2 INFINITY ADAPTIS ([id number]) [employer] [facility] rVue [id number] Left 1 Implanted infinity everlast cross-linked poly insert size 2+ h:8mm [id number] Left 1 Implanted Description of procedure: After [...] checked its depth. We used a lamina glass belt sander to anchor the tibial trial and then [...] tibial baseplate and put it on the rn ante partum. We lined up the pegs and used [...] 9:23 AM EDT Arthroplasty Ankle With Implant ([id number]) 11/21/2021 7:23 AM EDT Left ankle arthritis [...] Routine documented in this encounter Care Teams Room Service Attendant Relationship Specialty Start Date End Date Jennifer Suarez, FINANCE MGR [address] [place] [address] PCP - General Family Medicine 07/14/20 11/20/22 documented as of this encounter
--- OUTSIDE RECORDS SUMMARY | 2024-01-15 16:14 | XMS_ITS | Encounter Summary ---
Author Organization [facility] [place] [address] Care Team Providers Care Offender Job Retention Specialist Name Role Phone Jennifer Suarez APRN Primary Care Provider [phone] Encounter Details Date Type Department Care Team [...] on filedocumented in this encounter Care Teams Offender Job Retention Specialist Relationship Specialty Start Date End Date Jennifer Suarez APRN [address] [place] [address] PCP - General Family Medicine 07/14/20 11/20/22 documented as of this encounter
--- OUTSIDE RECORDS SUMMARY | 2024-01-15 16:14 | XMS_ITS | Encounter Summary ---
Author Organization [facility] [place] [address] Care Team Providers Care Line Service Attendant Name Role Phone Jennifer Suarez APRN Primary Care Provider [phone] Encounter Details Date Type Department Care Team [...] on filedocumented in this encounter Care Teams Line Service Attendant Relationship Specialty Start Date End Date Jennifer Suarez APRN [address] [place] [address] PCP - General Family Medicine 07/14/20 11/20/22 documented as of this encounter
--- OUTSIDE RECORDS SUMMARY | 2024-01-15 16:14 | XMS_ITS | Encounter Summary ---
Author Organization [facility] Address [facility] [place] [address] Care Team Providers Care Ticket Speculator Name Role Phone Jennifer Suarez APRN Primary Care Provider [phone] Reason for Visit * Reason Comments Pre-op Exam CASE REQ 11/21/21 LEF T TAA Encounter Details Date Type Department Care Team (Late st Contact Info) Description 10/31/2021 9:00 AM EDT Office [place] [address] Tio Mayo MD [facility] [place] [address] Arthritis of left ankle Social History Tobacco [...] each documented in this encounter Care Teams Ticket Speculator Relationship Specialty Start Date End Date Jennifer Suarez APRN [address] [place] [address] PCP - General Family Medicine 07/14/20 11/20/22 documented as of this encounter
--- OUTSIDE RECORDS SUMMARY | 2024-01-15 16:14 | XMS_ITS | Encounter Summary ---
Author Organization [facility] Address [facility] [place] [address] Care Team Providers Care Hammer Smith Name Role Phone Ramiro Melo MD Primary Care Provider [phone] Reason for Visit * Reason Comments Follow Up Surgery L TAA DOS 11/21/21 (C OE) Encounter Details Date Type Department Care Team (Late st Contact Info) Description 11/21/2022 1:40 PM EDT Office Visit [place] [address] Jennifer Stanley, ROMINA [facility] DR [place] [address] History of arthroplasty of left ankle (Primary [...] this encounter Progress Notes * Jennifer Stanley, CHILD DEVELOPMENT TEACHER - 11/21/2022 1:40 PM EDT Images from [...] of infection. Susan has been ambulating with ClctinAT and working with an HEP at this [...] no complications. Questionnaire Responses: 11/17/2022 6:58 PM [facility] Surgical Postop Visit PROMIS-10 General Health [...] Primary documented in this encounter Care Teams Hammer Smith Relationship Specialty Start Date End Date Ramiro Melo MD [address] [place] [address] PCP - General Family Medicine 11/21/22 documented as of this encounter
--- OUTSIDE RECORDS SUMMARY | 2024-01-15 16:14 | XMS_ITS | Encounter Summary ---
Author Organization [facility] Address [facility] [place] [address] Care Team Providers Care Fraud Examiner Name Role Phone Jennifer Suarez APRN Primary Care Provider [phone] Encounter Details Date Type Department Care Team (Latest Contact Info) Description 01/06/2022 3:11 PM EDT - 01/06/2022 11:59 PM EDT Hospital Encounter XRay at [address] [place] [address] Iris Jackson MD [facility] [place] [address] Arthritis of left ankle; Acquired left hindfoot [...] Capsule Take 2,000 Units by mouth daily. 0960-4916 units prescribed albuteroL 90 mcg/actuation HFA Aerosol [...] who have questions please contact the health laboratory animal caretaker that requested your imaging first. ? Electronically signed by: Fili Downing MD, [facility] ([phone]), at 01/06/2022 4:46 PM Narrative 01/06/2022 4:46 [...] patients who have questions please contactthe health laboratory animal caretaker that requested your imaging first. Electronically signed by: Fili Downing MD, 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 Mayo) History of arthroplasty of left ankle documented in this encounter Care Teams Fraud Examiner Relationship Specialty Start Date End Date Jennifer Suarez, ADMINISTRATIVE OPERATIONS COORDINATOR [address] [place] [address] PCP - General Family Medicine 07/14/20 11/20/22 documented as of this encounter
--- OUTSIDE RECORDS SUMMARY | 2024-01-15 16:14 | XMS_ITS | Encounter Summary ---
Author Organization [facility] Address [facility] [place] [address] Care Team Providers Care Forecast Analyst Name Role Phone Jennifer Suarez APRN Primary Care Provider [phone] Reason for Referral * Physical Therapy (Routine) - Closed Specialty Diagnoses / Procedures Referred By Cheri silverman Referred To Contact Physical Therapy Diagnoses Acquired left hindfoot varus Karey De PA [facility] [place] [address] [address] [place] [address] Referral ID Status Reason Start Date Expiration Date V isits Requested Visits Authorized [id number] Closed Evaluate and Treat 09/08/2021 09/08/2022 12 12 Encounter Details Date Type Department Care Team (Late st Contact Info) Description 09/08/2021 Orders [place] [address] Karey De PA [facility] [place] [address] Acquired left hindfoot varus Social History Tobacco [...] varus documented in this encounter Care Teams Forecast Analyst Relationship Specialty Start Date End Date Jennifer Suarez, PRINTER ASSISTANT [address] [facility] [facility] [place] [facility] [place] [address] PCP - General Family Medicine 07/14/20 11/20/22 documented as of this encounter
--- OUTSIDE RECORDS SUMMARY | 2024-01-15 16:14 | XMS_ITS | Encounter Summary ---
Author Organization [facility] [place] [address] Care Team Providers Care Sales Manager [place] Name Role Phone Jennifer Suarez APRN Primary Care Provider [phone] Reason for Visit * Auth/Cert Specialty Diagnoses / Procedures Referred By Cheri silverman Referred To Contact Diagnoses Varus deformity, not elsewhere classified, left ankle Primary osteoarthritis, left ankle and foot Left ankle arthritis Procedures PRO ARTHROPLASTY ANKLE WITH IMPLANT TOTAL ANKLE ARTHROPLASTY (WRVU 14.42) Tio Mayo MD [facility] DR [place] [address] [facility] Referral ID Status Reason Start Date Expiration Date Visits Re quested Visits Authorized [id number] 1 1 Encounter Details Date Type Department Care Team (Late st Contact Info) Description 11/21/2021 7:22 AM EDT Anesthesia [place] [address] Missael Lee MD [facility] [place] [address] Jeronimo Stanley MD [facility] [place] [address] Anesthesia Record Procedure Summary Procedure Name Responsible [...] 0640; metacarpal vein (top of hand), left; [id number]-csu-[id number] catheter system; 20 gauge, 1 in length; [...] Procedure Summary Date: 11/21/21 Room / Location: [facility] OR [address] [place] [address] MAIN OR Anesthesia Start: 721 Anesthesia Stop: 100 Procedure: TOTAL ANKLE ARTHROPLASTY (WRVU 14.42) (Left Ankle) Diagnosis: (Left ankle arthritis) Surgeons: iTo Mayo MD Responsible Provider: Missael Lee MD Anesthesia Type: general ASA Status: 3 All Anesthesia Providers: Anesthesiologist: Missael Lee MD ASBESTOS SIDING MECHANIC: Vale Mcpherson CRNA Vitals Value Taken Time BP 142/75 11/21/21 1030 Temp Pulse 46 11/21/21 1034 Resp 9 11/21/21 1034 SpO2 98 % 11/21/21 1034 Pain Level Vitals shown include unvalidated device data. Patient Location: PACU/[facility] Level of Consciousness: Awake and Alert [...] pac???s as noted on holter 01/2020 at [facility] , mild and occasional ??? Post-operative nausea and vomiting Last 2 uneventful, most recent here at [facility], see surigical notes from 12/01/20 Past Surgical History: Procedure Laterality Date ??? SECTION ??? ECTOPIC SURGERY x 2 ??? ORTHOPEDIC SURGERY ??? PRO OSTEOTOMY HEEL BONE Left 12/01/2020 OSTEOTOMY, CALCANEUS (WRVU 9.73) performed by Tio Mayo MD at [facility] MAIN OR ??? PRO REMOVAL DEEP IMPLANT Left 12/01/2020 REMOVAL OF IMPLANT, DEEP, FOOT (WRVU 5.96) performed by Tio Mayo MD at [facility] MAIN OR ??? TUBAL LIGATION ??? XR FLUORO INJECTION DRAINAGE JOINT MD LEFT Left 09/06/2020 XR Fluoro Guided Joint Injection Medium Left 09/06/2020 Janell Shah, RAILROAD HAND [facility] RAD XRAY Social History Tobacco Use [...] GA with LMA/ETT Jeronimo Stanley MD Pager [phone] Region - Other Informed Consent: Anesthesia Screening [...] Sciatic 10 cc Saphenous Jason Sue MD INFORMATICS SCIENTIST [facility] documented in this encounter Visit Diagnoses [...] documented in this encounter Care Teams Sales Manager [place] Relationship Specialty Start Date End Date Jennifer Suarez, ROMINA [address] [place] [address] PCP - General Family Medicine 07/14/20 11/20/22 documented as of this encounter
--- OUTSIDE RECORDS SUMMARY | 2024-01-15 16:14 | XMS_ITS | Encounter Summary ---
[place] [address] Care Team Providers Care Channel Cementer Outsole Machine Name Role Phone Jennifer Suarez APRN Primary Care Provider [phone] Encounter Details Date Type Department Care Team (Late st Contact Info) Description 09/12/2021 Telephone [place] [address] Sandra Weeks Social History Tobacco Use Types [...] to Brianna @ [employer] @ [phone] for ARSALANPT jaz successful confirmation of 5 pages including cover page documented in this encounter Plan of Treatment Not on file documented as of this encounter Visit Diagnoses Not on filedocumented in this encounter Care Teams Channel Cementer Outsole Machine Relationship Specialty Start Date End Date Jennifer Suarez APRN [address] [place] [address] PCP - General Family Medicine 07/14/20 11/20/22 documented as of this encounter
--- OUTSIDE RECORDS SUMMARY | 2024-01-15 16:14 | XMS_ITS | Encounter Summary ---
Author Organization [facility] [place] [address] Care Team Providers Care Director Of Integrated Marketing Name Role Phone Ramiro Melo MD Primary Care Provider [phone] Encounter Details Date Type Department Care Team [...] filedocumented in this encounter Care Teams Director Of Integrated Marketing Relationship Specialty Start Date End Date Ramiro Melo MD [address] [place] [address] PCP - General Family Medicine 11/21/22 documented as of this encounter
--- OUTSIDE RECORDS SUMMARY | 2024-01-15 16:14 | XMS_ITS | Encounter Summary ---
Author Organization [facility] [place] [address] Care Team Providers Care Learning And Development Officer Name Role Phone Jennifer Suarez APRN Primary Care Provider [phone] Encounter Details Date Type Department Care Team (Late st Contact Info) Description 10/14/2021 Orders [place] [address] Tio Mayo MD [facility] [place] [address] Arthritis of left ankle Social History Tobacco [...] have questions please contact the health childcare center director that requested your imaging first. ? [...] who have questions please contactthe health childcare center director that requested your imaging first. Tio Mayo MD IMG DX ORDERABLES documented in this encounter Visit Diagnoses Diagnosis Arthritis of left ankle Unspecified arthropathy, ankle and foot Arthritis of left ankle Unspecified arthropathy, ankle and foot documented in this encounter Care Teams Learning And Development Officer Relationship Specialty Start Date End Date Jennifer Suarez, REHABILITATION PROGRAM COORDINATOR [address] [place] [address] PCP - General Family Medicine 07/14/20 11/20/22 documented as of this encounter
--- OUTSIDE RECORDS SUMMARY | 2024-01-15 16:14 | XMS_ITS | Encounter Summary ---
Author Organization [facility] [place] [address] Care Team Providers Care Warehouse Delivery Driver Name Role Phone Jennifer Suarez APRN Primary Care Provider [phone] Encounter Details Date Type Department Care Team [...] filedocumented in this encounter Care Teams Warehouse Delivery Driver Relationship Specialty Start Date End Date Jennifer Suarez APRN [address] [place] [address] PCP - General Family Medicine 07/14/20 11/20/22 documented as of this encounter
--- OUTSIDE RECORDS SUMMARY | 2024-01-15 16:14 | XMS_ITS | Encounter Summary ---
Author Organization [facility] [place] [address] Care Team Providers Care Lining Printer Name Role Phone Ramiro Melo MD Primary Care Provider [phone] Encounter Details Date Type Department Care Team [...] on filedocumented in this encounter Care Teams Lining Printer Relationship Specialty Start Date End Date Ramiro Melo MD [address] [place] [address] PCP - General Family Medicine 11/21/22 documented as of this encounter
--- OUTSIDE RECORDS SUMMARY | 2024-01-15 16:14 | XMS_ITS | Encounter Summary ---
Author Organization [facility] [place] [address] Care Team Providers Care Women'S Garment Fitter Name Role Phone Jennifer Suarez APRN Primary Care Provider [phone] Encounter Details Date Type Department Care Team [...] on filedocumented in this encounter Care Teams Women'S Garment Fitter Relationship Specialty Start Date End Date Jennifer Suarez APRN [address] [place] [address] PCP - General Family Medicine 07/14/20 11/20/22 documented as of this encounter
--- OUTSIDE RECORDS SUMMARY | 2024-01-15 16:14 | XMS_ITS | Encounter Summary ---
Author Organization [facility] [place] [address] Care Team Providers Care Automatic Pinsetter Mechanic Name Role Phone Jennifer Suarez APRN Primary Care Provider [phone] Reason for Visit * Reason Onset Date Comments Letter Request From Patient 09/08/2021 Encounter Details Date Type Department Care Team (Late st Contact Info) Description 09/08/2021 Telephone [place] [address] Tio Mayo MD [facility] [place] [address] Letter Request From Patient Social History Tobacco [...] absent from work. Would you like to turkey picker your letter, fax, mail, or myD-H?mailed no email please, only as a last option To what address/fax#? [address] [place] [address] To whose attention?TO WHOM IT MAY CONCERN documented in this encounter Plan of Treatment Not on file documented as of this encounter Visit Diagnoses Not on filedocumented in this encounter Care Teams Automatic Pinsetter Mechanic Relationship Specialty Start Date End Date Jennifer Suarez APRN [address] [place] [address] PCP - General Family Medicine 07/14/20 11/20/22 documented as of this encounter
--- OUTSIDE RECORDS SUMMARY | 2024-01-15 16:15 | XMS_ITS | Encounter Summary ---
Author Organization [facility] Address [facility] [place] [address] Care Team Providers Care Weed Controller Name Role Phone Jennifer Suarez APRN Primary Care Provider [phone] Encounter Details Date Type Department Care Team (Late st Contact Info) Description 08/29/2021 Orders [place] [address] Karey De PA [facility] [place] [address] Lymphedema of left lower extremity; Acquired left [...] varus documented in this encounter Care Teams Weed Controller Relationship Specialty Start Date End Date Jennifer Suarez, ROMINA [address] [place] [address] PCP - General Family Medicine 07/14/20 11/20/22 documented as of this encounter
--- OUTSIDE RECORDS SUMMARY | 2024-01-15 16:15 | XMS_ITS | Encounter Summary ---
Author Organization [facility] [place] [address] Care Team Providers Care Painter Rough Name Role Phone Jennifer Suarez APRN Primary Care Provider [phone] Reason for Visit * Reason Comments Follow-up 12-01-20 left removal of implant Encounter Details Date Type Department Care Team (Late st Contact Info) Description 12/21/2020 4:30 PM EDT Office [place] [address] Tio Mayo MD [facility] [place] [address] Arthritis of left ankle; Acquired left hindfoot [...] Gael documented in this encounter Care Teams Painter Rough Relationship Specialty Start Date End Date Jennifer Suarez, PRODUCT DEVELOPMENT WORKER [address] [facility] [place] [address] PCP - General Family Medicine 07/14/20 11/20/22 documented as of this encounter
--- OUTSIDE RECORDS SUMMARY | 2024-01-15 16:15 | XMS_ITS | Encounter Summary ---
Author Organization [facility] Address [facility] [place] [address] Care Team Providers Care Service Dog Trainer Name Role Phone Jennifer Suarez APRN Primary Care Provider [phone] Encounter Details Date Type Department Care Team (Late st Contact Info) Description 12/31/2020 Telephone [place] [address] Karey De PA [facility] [place] [address] Social History Tobacco Use Types Packs/Day Years [...] get it checked. Please call patient at [phone] documented in this encounter Plan of Treatment Not on file documented as of this encounter Visit Diagnoses Not on filedocumented in this encounter Care Teams Service Dog Trainer Relationship Specialty Start Date End Date Jennifer Suarez APRN [address] [place] [address] PCP - General Family Medicine 07/14/20 11/20/22 documented as of this encounter
--- OUTSIDE RECORDS SUMMARY | 2024-01-15 16:15 | XMS_ITS | Encounter Summary ---
Author Organization [facility] [place] [address] Care Team Providers Care Ramp Agent Name Role Phone Jennifer Suarez APRN Primary Care Provider [phone] Reason for Visit * Reason Comments Blurred Vision Encounter Details Date Type Department Care Team (Late st Contact Info) Description 08/10/2020 2:20 PM EDT Office [place] [address] Dayana Ahuja, OD [facility] [place] [address] Posterior vitreous detachment of left eye; Astigmatism [...] Astigmatism of both eyes with presbyopia Susan Sancheshenny is a 50 y.o. 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
--- OUTSIDE RECORDS SUMMARY | 2024-01-15 16:15 | XMS_ITS | Encounter Summary ---
Author Organization [facility] [address] Care Team Providers Care Electrophysiology Technologist Name Role Phone Jennifer Suarez APRN Primary Care Provider Reason for Visit * Reason Comments Follow Up Surgery Acquired left hindfo ot varus s/p lateral closing wedge osteotomy 12/01/20 Gael Encounter Details Date Type Department Care Team (Late st Contact Info) Description 01/07/2021 4:30 PM EDT Office [place] [address] Karey De PA [facility] DR [place] [address] Acquired left hindfoot varus Social History Tobacco [...] NAME: Susan Whitney AGE: 50 y.o. MR#: [id number] DATE OF VISIT: 01/07/2021 CHIEF COMPLAINT: 5 [...] care representative that requested your imaging first. 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
--- OUTSIDE RECORDS SUMMARY | 2024-01-15 16:15 | XMS_ITS | Encounter Summary ---
Author Organization [facility] Address [facility] [place] [address] Care Team Providers Care Driller And Broacher Name Role Phone Jennifer Suarez APRN Primary Care Provider Encounter Details Date Type Department Care Team (Late st Contact Info) Description 12/02/2020 Telephone [place] [address] Gregoria Buchanan MD [facility] [place] [address] Social History Tobacco Use Types Packs/Day Years [...] on filedocumented in this encounter Care Teams Driller And Broacher Relationship Specialty Start Date End Date Jennifer Suarez, BUSINESS SOLUTION ANALYST [address] [place] [address] PCP - General Family Medicine 07/14/20 11/20/22 documented as of this encounter
--- OUTSIDE RECORDS SUMMARY | 2024-01-15 16:15 | XMS_ITS | Encounter Summary ---
Author Organization [facility] Address [facility] [place] [address] Care Team Providers Care Retail Event Assistant Name Role Phone Jennifer Suarez APRN Primary Care Provider [phone] Encounter Details Date Type Department Care Team (Latest Contact Info) Description 02/08/2021 12:50 PM EST - 02/08/2021 11:59 PM [facility] Encounter XRay at [address] [place] [address] Iris Jackson MD [facility] [place] [address] Acquired left hindfoot varus Discharge Disposition: Home [...] have questions please contact the health care process manager that requested your imaging first. ? [...] who have questions please contactthe health care process manager that requested your imaging first. Iris Jackson MD IMG DX ORDERABLES documented in this encounter Visit Diagnoses Diagnosis Acquired left hindfoot varus documented in this encounter Care Teams Retail Event Assistant Relationship Specialty Start Date End Date Jennifer Suarez APRN [address] [place] [address] PCP - General Family Medicine 07/14/20 11/20/22 documented as of this encounter
--- OUTSIDE RECORDS SUMMARY | 2024-01-15 16:15 | XMS_ITS | Encounter Summary ---
[place] [address] Care Team Providers Care Cooler Servicer Name Role Phone Mikey Hernandez MD Primary Care Provider [phone] Reason for Visit * Reason Comments Cellulitis Encounter Details Date Type Department Care Team (Late st Contact Info) Description 09/30/2019 6:50 PM EDT - 09/30/2019 6:51 PM [place]T [place] [address] Cellulitis of leg, right Discharge Disposition: Home [...] be sent through Care Everywhere. * Cellulitis (Russian) documented in this encounter Medications at Time [...] -Discharge home Juan Carlos Melgar PA 09/30/19 1099 documented in this encounter Plan of Treatment Not on file documented as of this encounter Visit Diagnoses Diagnosis Cellulitis of leg, right Cellulitis and abscess of leg, except foot documented in this encounter Care Teams Cooler Servicer Relationship Specialty Start Date End Date Mikey Hernandez MD PCP - General 08/08/16 07/13/20 documented as of this encounter
--- OUTSIDE RECORDS SUMMARY | 2024-01-15 16:15 | XMS_ITS | Encounter Summary ---
Author Organization [facility] [place] [address] Care Team Providers Care Warehouse Material Handler Name Role Phone Jennifer Suarez APRN Primary Care Provider [phone] Reason for Visit * Reason Onset Date Comments Disability Paperwork 03/28/2021 Encounter Details Date Type Department Care Team (Late st Contact Info) Description 03/28/2021 Telephone [place] [address] Tio Mayo MD [facility] [place] [address] Disability Paperwork Social History Tobacco Use Types [...] filedocumented in this encounter Care Teams Warehouse Material Handler Relationship Specialty Start Date End Date Jennifer Suarez, ROMINA [address] [place] [address] PCP - General Family Medicine 07/14/20 11/20/22 documented as of this encounter
--- OUTSIDE RECORDS SUMMARY | 2024-01-15 16:15 | XMS_ITS | Encounter Summary ---
Author Organization [facility] [address] Care Team Providers Care Coping Machine Assembler Name Role Phone Jennifer Suarez APRN Primary Care Provider [phone] Reason for Visit * Reason Comments Follow-up Pre-Op Encounter Details Date Type Department Care Team (Late st Contact Info) Description 11/30/2020 1:00 PM EDT Office [place] [address] Tio Mayo MD [facility] [place] [address] Arthritis of left ankle; Acquired left hindfoot [...] varus documented in this encounter Care Teams Coping Machine Assembler Relationship Specialty Start Date End Date Jennifer Suarez APRN [address] [place] [address] PCP - General Family Medicine 07/14/20 11/20/22 documented as of this encounter
--- OUTSIDE RECORDS SUMMARY | 2024-01-15 16:15 | XMS_ITS | Encounter Summary ---
[place] [address] Care Team Providers Care District Recruiter Name Role Phone Jennifer Suarez APRN Primary Care Provider [phone] Reason for Referral * Diagnostic Test (Routine) - Closed Specialty Diagnoses / Procedures Referred By Cheri silverman Referred To Contact Radiology Diagnoses Arthritis of left ankle Procedures CT Ankle wo Contrast Left (Generic) Tio Mayo MD [facility] [address] [facility] [place] [address] Referral ID Status Reason Start Date Expiration Date V isits Requested Visits Authorized [id number] Closed Specialty Service Requested 04/20/2021 10/18/2022 1 1 Encounter Details Date Type Department Care Team (Late st Contact Info) Description 04/20/2021 Orders [place] [address] Tio Mayo MD [facility] [place] [address] Arthritis of left ankle (Primary [...] who have questions please contact the health spiritual care coordinator that requested your imaging first. ? Electronically signed by: Deb Michelle MD, [facility] ([phone]), at 06/10/2021 2:01 PM Narrative 06/10/2021 2:01 PM EDT EXAMINATION: CT [...] patients who have questions please contactthe health spiritual care coordinator that requested your imaging first. Electronically signed by: Deb Michelle MD, [facility]([phone]), at 06/10/2021 2:01 PM Tio Mayo MD IMG CT ORDERABLES documented in this encounter Visit Diagnoses Diagnosis Arthritis of left ankle- Primary Unspecified arthropathy, ankle and foot Arthritis of left ankle Unspecified arthropathy, ankle and foot documented in this encounter Care Teams District Recruiter Relationship Specialty Start Date End Date Jennifer Suarez, ROMINA [address] [facility] [place] [address] PCP - General Family Medicine 07/14/20 11/20/22 documented as of this encounter
--- OUTSIDE RECORDS SUMMARY | 2024-01-15 16:15 | XMS_ITS | Encounter Summary ---
[place] [address] Care Team Providers Care Restrictive Preparation Operator Name Role Phone Jennifer Suarez APRN Primary Care Provider [phone] Encounter Details Date Type Department Care Team (Late st Contact Info) Description 08/25/2021 Telephone [place] [address] Yumiko Kerr Social History Tobacco Use Types [...] on filedocumented in this encounter Care Teams Restrictive Preparation Operator Relationship Specialty Start Date End Date Jennifer Suarez APRN [address] [place] [address] PCP - General Family Medicine 07/14/20 11/20/22 documented as of this encounter
--- OUTSIDE RECORDS SUMMARY | 2024-01-15 16:15 | XMS_ITS | Encounter Summary ---
Author Organization [facility] Address [facility] [place] [address] Care Team Providers Care Technical Staff Engineer Name Role Phone Jennifer Suarez APRN Primary Care Provider [phone] Reason for Referral * Physical Therapy (Routine) - Closed Specialty Diagnoses / Procedures Referred By Cheri silverman Referred To Contact Physical Therapy Diagnoses Lymphedema of left lower extremity Tio Mayo MD [facility] [place] [address] Cyn Murphy, PT [facility] PHYSICAL MEDICINE & [place] [address] Referral ID Status Reason Start Date Expiration Date V isits Requested Visits Authorized [id number] Closed Evaluate and Treat 07/27/2021 07/27/2022 100 100 Reason for Visit * Reason Onset Date Comments Physical Therapy 07/27/2021 Encounter Details Date Type Department Care Team (Late st Contact Info) Description 07/27/2021 Telephone [place] [address] Tio Mayo MD [facility] [place] [address] Physical Therapy Social History Tobacco Use Types [...] Lymphedema then it needs to go to [facility]. documented in this encounter Plan of Treatment Scheduled Referrals Name Type Priority Associated Diagnoses Orde r Schedule Referral to Physical Therapy Outpatient Referral Routine Lymphedema of left lower extremity Ordered: 07/27/2021 documented as of this encounter Visit Diagnoses Diagnosis Lymphedema of left lower extremity documented in this encounter Care Teams Technical Staff Engineer Relationship Specialty Start Date End Date Jennifer Suarez APRN [address] [place] [address] PCP - General Family Medicine 07/14/20 11/20/22 documented as of this encounter
--- OUTSIDE RECORDS SUMMARY | 2024-01-15 16:15 | XMS_ITS | Encounter Summary ---
Author Organization [facility] [place] [address] Care Team Providers Care Green Marketer Name Role Phone Jennifer Suarez APRN Primary Care Provider [phone] Reason for Visit * Reason Onset Date Comments Disability Paperwork 11/15/2020 Encounter Details Date Type Department Care Team (Late st Contact Info) Description 11/15/2020 Telephone [place] [address] Tio Mayo MD [facility] [place] [address] Disability Paperwork Social History Tobacco Use Types [...] on filedocumented in this encounter Care Teams Green Marketer Relationship Specialty Start Date End Date Jennifer Suarez, ROMINA [address] [place] [address] PCP - General Family Medicine 07/14/20 11/20/22 documented as of this encounter
--- OUTSIDE RECORDS SUMMARY | 2024-01-15 16:15 | XMS_ITS | Encounter Summary ---
Author Organization [facility] [place] [address] Care Team Providers Care Heavy Equipment Diesel Mechanic Name Role Phone Jennifer Suarez APRN Primary Care Provider [phone] Reason for Visit * Reason Onset Date Comments Disability Paperwork 12/03/2020 Encounter Details Date Type Department Care Team (Late st Contact Info) Description 12/03/2020 Telephone [place] [address] Tio Mayo MD [facility] [address] [place] [address] Disability Paperwork Social History Tobacco Use Types [...] on filedocumented in this encounter Care Teams Heavy Equipment Diesel Mechanic Relationship Specialty Start Date End Date Jennifer Suarez, ROMINA [address] [place] [address] PCP - General Family Medicine 07/14/20 11/20/22 documented as of this encounter
--- OUTSIDE RECORDS SUMMARY | 2024-01-15 16:15 | XMS_ITS | Encounter Summary ---
[place] [address] Care Team Providers Care Logistic Specialist Name Role Phone Jennifer Suarez APRN Primary Care Provider [phone] Reason for Referral * Diagnostic Test (Routine) - Closed Specialty Diagnoses / Procedures Referred By Contac t Referred To Contact Radiology Diagnoses Arthritis of left ankle Procedures CT Ankle wo Contrast Left (Generic) Tio Mayo MD [facility] [place] [address] [facility] [place] [address] Referral ID Status Reason Start Date Expiration Date V isits Requested Visits Authorized [id number] Closed Specialty Service Requested 04/20/2021 10/18/2022 1 1 Reason for Visit * Diagnostic Test (Routine) - Closed Specialty Diagnoses / Procedures Referred By Contac t Referred To Contact Radiology Diagnoses Arthritis of left ankle Procedures CT Ankle wo Contrast Left (Generic) Tio Mayo MD [facility] [place] [address] [facility] [place] [address] Referral ID Status Reason Start Date Expiration Date V isits Requested Visits Authorized [id number] Closed Specialty Service Requested 04/20/2021 10/18/2022 1 1 Encounter Details Date Type Department Care Team (Latest Contact Info) Description 06/10/2021 1:12 PM EDT - 06/10/2021 2:14 PM EDT Hospital Encounter CT Scan at [facility] [place] [address] Tio Mayo MD [facility] [address] ORTHOP[place] [address] Arthritis of left ankle Discharge Disposition: Home [...] who have questions please contact the health medicare sales executive that requested your imaging first. ? Electronically signed by: Deb Michelle MD, [facility] ([phone]), at 06/10/2021 2:01 PM Narrative 06/10/2021 2:01 [...] patients who have questions please contactthe health medicare sales executive that requested your imaging first. Tio Mayo MD IMG CT ORDERABLES documented in this encounter Visit Diagnoses Diagnosis Arthritis of left ankle Unspecified arthropathy, ankle and foot documented in this encounter Care Teams Logistic Specialist Relationship Specialty Start Date End Date Jennifer Suarez, ROMINA [address] [place] [address] PCP - General Family Medicine 07/14/20 11/20/22 documented as of this encounter
--- OUTSIDE RECORDS SUMMARY | 2024-01-15 16:15 | XMS_ITS | Encounter Summary ---
Author Organization [facility] Address [facility] [place] [address] Care Team Providers Care Automatic Trimming Sewer Name Role Phone Jennifer Suarez APRN Primary Care Provider [phone] Reason for Visit * Reason Onset Date Comments Appointment 08/11/2020 Encounter Details Date Type Department Care Team (Late st Contact Info) Description 08/11/2020 [place] [address] Daayna Ahuja OD [facility] [place] [address] Appointment Social History Tobacco Use Types Packs/Day [...] VM msg for pt to call to [facility]: At time of call avail appts w [...] filedocumented in this encounter Care Teams Automatic Trimming Sewer Relationship Specialty Start Date End Date Jennifer Suarez, ROMINA [address] [place] [address] PCP - General Family Medicine 07/14/20 11/20/22 documented as of this encounter
--- OUTSIDE RECORDS SUMMARY | 2024-01-15 16:15 | XMS_ITS | Encounter Summary ---
Author Organization [facility] Address [facility] [place] [address] Care Team Providers Care Technologist Infectious Disease Name Role Phone Jennifer Suarez APRN Primary Care Provider [phone] Reason for Visit * Physical Therapy (Routine) - Closed Specialty Diagnoses / Procedures Referred By Cheri silverman Referred To Contact Physical Therapy Diagnoses Lymphedema of left lower extremity Tio Mayo MD [facility] [place] [address] Marsha Murphy, PT [facility] PHYSICAL MEDICINE & [place] [address] Referral ID Status Reason Start Date Expiration Date V isits Requested Visits Authorized [id number] Closed Evaluate and Treat 07/27/2021 07/27/2022 100 100 Encounter Details Date Type Department Care Team (Late st Contact Info) Description 08/26/2021 2:00 PM EDT Office Visit [place] [address] Marsha Murphy, PT [facility] PHYSICAL MEDICINE & [place] [address] Hereditary lymphedema Social History Tobacco Use Types [...] on. Had bought compression knee highs at [employer] 12-15 mmhg, They wrinkle and cut in [...] for primary subtalar osteoarthritis in 2016 in [place] followed byleft hindfoot varus s/p lateral closing [...] care : lives with Ye [employer], in [place], [place]. 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 Current Exercise: none [...] be a size average large with 1 electric frying pan repairer strap in the calf SL foot size medium, regular length with 1 electric frying pan repairer strap Color: black Farrow Hybrid sock size: Standard Short stretch bandages applied to left L/E to knee. Pt and SO Ye instructed how to self bandage and video sent via [facility] Compression bandage precautions: pt advised to wear [...] preparation for ankle surgery Nov 21 Therapy Intermediate Goals 8 weeks 1. maintain reduction in [...] legs documented in this encounter Care Teams Technologist Infectious Disease Relationship Specialty Start Date End Date Jennifer Suarez, ROMINA [address] [place] [address] PCP - General Family Medicine 07/14/20 11/20/22 documented as of this encounter
--- OUTSIDE RECORDS SUMMARY | 2024-01-15 16:15 | XMS_ITS | Encounter Summary ---
Author Organization [facility] [place] [address] Care Team Providers Care Vacuum Cooker Operator Name Role Phone Jennifer Suarez APRN Primary Care Provider Reason for Visit * Reason Comments Cellulitis Encounter Details Date Type Department Care Team (Late st Contact Info) Description 07/19/2021 12:55 PM EDT - 07/19/2021 3:05 PM EDT Emergency [place] [address] Angie Saunders MD [facility] [place] [address] Jenna Rosa MD [facility] [address] Edema of lower extremity (Primary Dx) Discharge [...] up plan. Laila Clemons MD Resident 07/19/21 4313 Associated attestation - Angie Saunders MD - [...] MD - 07/19/2021 12:38 PM EDT Telehealth [id number] Note: The following documentation is provided in [...] Text Report Department: Vascular Surgery Lab Patient: [id number] ([id number] [id number]) CPT: 51640 Referring Physician: ANGIE SAUNDERS ?? Phone: Indications: [...] Edema documented in this encounter Care Teams Vacuum Cooker Operator Relationship Specialty Start Date End Date Jennifer Suarez, ROMINA [address] [place] [facility] [address] PCP - General Family Medicine 07/14/20 11/20/22 documented as of this encounter
--- OUTSIDE RECORDS SUMMARY | 2024-01-15 16:15 | XMS_ITS | Encounter Summary ---
Author Organization [facility] Address [facility] [place] [address] Care Team Providers Care Docket Specialist Name Role Phone Jennifer Suarez APRN Primary Care Provider [phone] Encounter Details Date Type Department Care Team (Latest Contact Info) Description 08/17/2020 2:33 PM EDT - 08/17/2020 11:59 PM EDT Hospital Encounter XRay at [address] [place] [address] Tio Mayo MD [facility] [place] [address] Left foot pain Discharge Disposition: Home Social [...] have questions please contact the health career services coordinator that requested your imaging first. ? [...] who have questions please contactthe health career services coordinator that requested your imaging first. Tio Mayo MD IMG DX ORDERABLES documented in this encounter Visit Diagnoses Diagnosis Left foot pain Pain in limb documented in this encounter Care Teams Docket Specialist Relationship Specialty Start Date End Date Jennifer Suarez APRN [address] [place] [address] PCP - General Family Medicine 07/14/20 11/20/22 documented as of this encounter
--- OUTSIDE RECORDS SUMMARY | 2024-01-15 16:15 | XMS_ITS | Encounter Summary ---
Author Organization [facility] Address [facility] [place] [address] Care Team Providers Care Concrete Conveyor Operator Name Role Phone Jennifer Suarez APRN Primary Care Provider [phone] Reason for Visit * Reason Comments Follow Up Surgery DOS 12-01-20 left carlos navarro of implant Encounter Details Date Type Department Care Team (Late st Contact Info) Description 12/31/2020 11:00 AM EDT Office [place] [address] Karey De PA 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 MR#: [id number] DATE OF VISIT: 12/31/2020 CHIEF COMPLAINT: Wound [...] Gael documented in this encounter Care Teams Concrete Conveyor Operator Relationship Specialty Start Date End Date Jennifer Suarez, ROMINA [address] [place] [address] PCP - General Family Medicine 07/14/20 11/20/22 documented as of this encounter
--- OUTSIDE RECORDS SUMMARY | 2024-01-15 16:15 | XMS_ITS | Encounter Summary ---
[place] [address] Care Team Providers Care Vacuum Cleaner Repairer Name Role Phone Adarsh Wynn MD Primary Care Provider [phone] Encounter Details Date Type Department Care Team (Late st Contact Info) Description 07/03/2016 Telephone Audiology at [address] [phone] Melinda Zepeda Social History Tobacco Use Types [...] on filedocumented in this encounter Care Teams Vacuum Cleaner Repairer Relationship Specialty Start Date End Date Adarsh Wynn MD [facility] [address] [place], [place] [id number] PCP - General General Internal Medicine 05/25/1507/24 documented as of this encounter
--- OUTSIDE RECORDS SUMMARY | 2024-01-15 16:15 | XMS_ITS | Encounter Summary ---
Author Organization [facility] [place] [address] Care Team Providers Care Metalizer Name Role Phone Jennifer Suarez APRN Primary Care Provider [phone] Reason for Visit * Reason Comments Leg Pain Red, swollen, painfu l Encounter Details Date Type Department Care Team (Late st Contact Info) Description 07/16/2021 6:18 PM EDT - 07/16/2021 6:51 PM EDT [place] [address] Ramirez Guan MD [facility] DR [place] [address] Cellulitis of leg, left Discharge Disposition: Home [...] be sent through Care Everywhere. * Cellulitis ([place]orese) documented in this encounter Medications at Time [...] critical care? No Ramirez Guan MD 07/16/21 223 * Alem Duke RN - 07/16/2021 6:27 [...] RN) documented in this encounter Care Teams Metalizer Relationship Specialty Start Date End Date Jennifer Suarez, ROMINA [address] [place] [address] PCP - General Family Medicine 07/14/20 11/20/22 documented as of this encounter
--- OUTSIDE RECORDS SUMMARY | 2024-01-15 16:15 | XMS_ITS | Encounter Summary ---
[place] [address] Care Team Providers Care Baked And Graphite Inspector Name Role Phone Jennifer Suarez APRN Primary Care Provider Encounter Details Date Type Department Care Team (Late st Contact Info) Description 08/09/2020 Orders [place] [address] Kaylen, Kourtney E, RMA Left foot pain Social [...] ? Electronically signed by: AMOL MOSHER DO [facility] ([phone]), at 08/17/2020 3:39 PM Narrative 08/17/2020 3:39 [...] zoo caretaker that requested your imaging first. Tio Mayo MD IMG DX ORDERABLES documented in this encounter Visit Diagnoses Diagnosis Left foot pain Pain in limb Left foot pain Pain in limb documented in this encounter Care Teams Baked And Graphite Inspector Relationship Specialty Start Date End Date Jennifer Suarez, ROMINA [address] [facility] [place] [address] PCP - General Family Medicine 07/14/20 11/20/22 documented as of this encounter
--- OUTSIDE RECORDS SUMMARY | 2024-01-15 16:15 | XMS_ITS | Encounter Summary ---
Author Organization [facility] Address [facility] [place] [address] Care Team Providers Care Chief Lifestyle Officer Name Role Phone Jennifer Suarez APRN Primary Care Provider [phone] Encounter Details Date Type Department Care Team (Latest Contact Info) Description 06/10/2021 2:15 PM EDT - 06/10/2021 11:59 PM EDT Hospital Encounter XRay at [address] [place] [address] Iris Jackson MD [facility] [place] [address] Acquired left hindfoot varus Discharge Disposition: Home [...] who have questions please contact the health life care planner that requested your imaging first. ? Narrative [...] patients who have questions please contactthe health life care planner that requested your imaging first. Iris Jackson MD IMG DX ORDERABLES documented in this encounter Visit Diagnoses Diagnosis Acquired left hindfoot varus documented in this encounter Care Teams Chief Lifestyle Officer Relationship Specialty Start Date End Date Jennifer Suarez, APPLICATIONS SUPPORT SPECIALIST [address] [place] [address] PCP - General Family Medicine 07/14/20 11/20/22 documented as of this encounter
--- OUTSIDE RECORDS SUMMARY | 2024-01-15 16:15 | XMS_ITS | Encounter Summary ---
Author Organization [facility] [place] [address] Care Team Providers Care Harpsichord Maker Name Role Phone Jennifer Suarez APRN Primary Care Provider [phone] Reason for Referral * Diagnostic Test (Routine) - Closed Specialty Diagnoses / Procedures Referred By Cheri silverman Referred To Contact Radiology Diagnoses Left foot pain Procedures XR Fluoro Guided Joint Injection Medium Left Freddie Mtz MD [facility] [address] [facility] [address] [place] [address] [place] [address] Referral ID Status Reason Start Date Expiration Date V isits Requested Visits Authorized [id number] Closed Specialty Service Requested 08/17/2020 02/17/2022 1 1 Reason for Visit * Diagnostic Test (Routine) - Closed Specialty Diagnoses / Procedures Referred By Cheri silverman Referred To Contact Radiology Diagnoses Left foot pain Procedures XR Fluoro Guided Joint Injection Medium Left Freddie Mtz MD [facility] [place] [address] [facility] [address] [place] [address] [place] [address] Referral ID Status Reason Start Date Expiration Date V isits Requested Visits Authorized [id number] Closed Specialty Service Requested 08/17/2020 02/17/2022 1 1 Encounter Details Date Type Department Care Team (Latest Contact Info) Description 09/06/2020 3:21 PM EDT - 09/06/2020 11:59 PM EDT Hospital Encounter XRay at [address] [place] [address] Tio Mayo MD [facility] [place] [address] Left foot pain Discharge Disposition: Home Social [...] telephone the diagnostic section of radiology at [phone]. documented in this encounter Medications at Time [...] questions please contact the health day care supervisor that requested your imaging first. [...] electronic medical record and allergies, as per [facility] protocol. The patient was placed supine on [...] relevant electronic medicalrecord and allergies, as per [facility] protocol. The patient was placed supine on [...] have questions please contactthe health day care supervisor that requested your imaging first. [...] EDT documented in this encounter Care Teams Harpsichord Maker Relationship Specialty Start Date End Date Jennifer Suarez, SCIENCE FACULTY MEMBER [address] [place] [address] PCP - General Family Medicine 07/14/20 11/20/22 documented as of this encounter
--- OUTSIDE RECORDS SUMMARY | 2024-01-15 16:15 | XMS_ITS | Encounter Summary ---
Author Organization [facility] Address [facility] [place] [address] Care Team Providers Care Product Development Scientist Name Role Phone Jennifer Suarez APRN Primary Care Provider [phone] Reason for Referral * Physical Therapy (Routine) - Closed Specialty Diagnoses / Procedures Referred By Cheri silverman Referred To Contact Diagnoses Acquired left hindfoot varus Karey De PA [facility] [place] [address] Referral ID Status Reason Start Date Expiration Date V isits Requested Visits Authorized [id number] Closed Evaluate and Treat 02/08/2021 08/07/2021 1 1 Reason for Visit * Reason Comments Follow Up Surgery s/p YEE L Subtalar S crew DOS 12/01/2020 Encounter Details Date Type Department Care Team (Late st Contact Info) Description 02/08/2021 2:30 PM EST [place] [address] Karey De PA [facility] [place] [address] Acquired left hindfoot varus Social History Tobacco [...] NAME: Susan Whitney AGE: 50 y.o. MR#: [id number] DATE OF VISIT: 02/08/2021 CHIEF COMPLAINT: 10 [...] who have questions please contact the health coronary care unit nurse that requested your imaging first. ? Electronically signed by: Fili Downing MD, [facility] ([phone]), at 04/01/2021 1:49 PM Narrative 04/01/2021 1:49 [...] patients who have questions please contactthe health coronary care unit nurse that requested your imaging first. Electronically signed by: Fili Downing MD, 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
--- OUTSIDE RECORDS SUMMARY | 2024-01-15 16:15 | XMS_ITS | Encounter Summary ---
Author Organization [facility] [place] [address] Care Team Providers Care Driller Brake Lining Name Role Phone Jennifer Suarez APRN Primary Care Provider [phone] Reason for Referral * Physical Therapy (Routine) - Duplicate Referral Specialty Diagnoses / Procedures Referred By Cheri silverman Referred To Contact Physical Therapy Diagnoses Arthritis of left ankle Tio Mayo MD [facility] [place] [address] Cyn Murphy, PT [facility] PHYSICAL MEDICINE & [place] [address] Referral ID Status Reason Start Date Expiration Date Visits Requested Visits Authorized [id number] Duplicate Referral Evaluate and Treat 07/26/2021 07/26/2022 12 12 Reason for Visit * Reason Comments Follow Up Surgery Ankle ARTHROPLASTY Encounter Details Date Type Department Care Team (Late st Contact Info) Description 07/26/2021 4:30 PM EDT Office [place] [address] Tio Mayo MD [facility] [place] [address] Arthritis of left ankle (Primary Dx); Acquired [...] varus s/p lateral closing wedge osteotomy 12/01/20 [facility] History of present illness: Susan [...] Gael documented in this encounter Care Teams Driller Brake Lining Relationship Specialty Start Date End Date Jennifer Suarez, ROMINA [address] [facility] [place] [address] PCP - General Family Medicine 07/14/20 11/20/22 documented as of this encounter
--- OUTSIDE RECORDS SUMMARY | 2024-01-15 16:15 | XMS_ITS | Encounter Summary ---
Author Organization [facility] [place] [address] Care Team Providers Care Rear Load Truck Driver Name Role Phone Jennifer Suarez APRN Primary Care Provider [phone] Encounter Details Date Type Department Care Team (Late st Contact Info) Description 06/15/2021 [place] [address] Tio Mayo MD [facility] [place] [address] Social History Tobacco Use Types Packs/Day Years [...] left a message for patient to call [phone] directly and schedule surgery with Dr. mayo. [...] on filedocumented in this encounter Care Teams Rear Load Truck Driver Relationship Specialty Start Date End Date Jennifer Suarez, CARD GRINDER [address] [place] [address] PCP - General Family Medicine 07/14/20 11/20/22 documented as of this encounter
--- OUTSIDE RECORDS SUMMARY | 2024-01-15 16:15 | XMS_ITS | Encounter Summary ---
Author Organization [facility] Address [facility] [place] [address] Care Team Providers Care Line Inspector Name Role Phone Jennifer Suarez APRN Primary Care Provider [phone] Reason for Visit * Auth/Cert Specialty Diagnoses [...] Expiration Date Visits Re quested Visits Authorized [id number] 1 1 Encounter Details Date Type Department Care Team (Late st Contact Info) Description 12/01/2020 7:30 AM EDT - 12/01/2020 9:15 AM EDT Surgery [place] [address] Tio Covarrubias MD [facility] [place] [address] REMOVAL OF IMPLANT, DEEP, FOOT (WRVU 5.96) [...] can affect judgment and reaction time. Contact [facility] with any questions/concerns. Medications: 1. The pain medication you are on can cause constipation so increase your intake of fluids and fiber while you are on them. You can take the stool softener, Senakot, that was ordered to facilitate a bowel movement. If needed an ydwa-feq-awplehu medication, MiraLAX can also be used to [...] control your pain. Call your doctor at [phone] if: You have a fever > 101.5 or experience chills Increased discharge from the incision Any redness or swelling around the incision Increased pain or change in the pain that is not controlled by your pain medications. FOLLOW UP APPOINTMENTS: 1. You will have follow up appointments at [facility] as indicated in Future Appointments and Orders. [...] Center 12/21/2020 4:30 PM Tio Covarrubias MD [facility] ORTH 3C [facility] documented in this encounter Medications at Time [...] proceed with operative treatment. Tio Covarrubias MD [place] Orthopaedic Surgery Attending documented in this encounter Miscellaneous Notes * Op Note - Tio Covarrubias MD - 12/01/2020 8:01 AM EDT [facility] Operative Note Patient Name: Susan Whitney : [id number] MR#: [id number] Case Date: 12/01/2020 Surgeon: Surgeon(s) and Role: [...] Implant Name Type Inv. Item Serial No. Ui Developer Designer Lot No. LRB No. Used Action GRAFT BONE FILLER [id number] CHIPS CANC PRESERVON READIGRAFT ([id number]) (AutoReq) - [id number] IMPLANTS GRAFT BONE FILLER [id number] CHIPS CANC PRESERVON READIGRAFT ([id number]) (AutoReq) [facility] HE Left 1 Implanted STAPLE [id number] COMP NITINOL SPEED TITAN ([id number]) (AutoReq) - [id number] IMPLANTS STAPLE [id number] COMP NITINOL SPEED TITAN (9259299) (AutoReq) [facility] G[facility] [id number] Left 1 Implanted STAPLE [id number] COMP NITINOL SPEED TITAN ([id number]) (AutoReq) - [id number] IMPLANTS STAPLE [id number] COMP NITINOL SPEED TITAN ([id number]) (AutoReq) [employer] [facility] [employer] [id number] Left 1 Implanted K WIRE FIX [id number] TROCAR POINT THREADED BTH END SS ([id number]) - [id number] IMPLANTS K WIRE FIX 0.223Z2JK TROCAR POINT THREADED BTH END SS (8086595) [employer] - MI[employer]RE Left 1 Implanted and Explanted PIN FIX 7/64X9IN TROCAR POINT SGL END SS STEINMANN ([id number]) - [id number] IMPLANTS PIN FIX 7/[id number] POINT SGL END SS STEINMANN ([id number]) [employer] - MICRO[employer]RE Left 1 Implanted and Explanted PIN FIX 5/32X9IN TROCAR POINT SGL END SS STEINMANN ([id number]) - [id number] IMPLANTS PIN FIX 5/30Z1GMVNREIF POINT SGL END SS STEINMANN ([id number]) [employer] - MICROAIRE Left [...] subtalar screws, hindfoot varus Osteotomy Heel Bone (00455) 12/01/2020 7:34 AM EDT retained left subtalar screws, hindfoot varus Removal Deep Implant (11732) 12/01/2020 7:34 AM EDT retained left subtalar [...] RN) documented in this encounter Care Teams Line Inspector Relationship Specialty Start Date End Date Jennifer Suarez APRN [address] [place] [address] PCP - General Family Medicine 07/14/20 11/20/22 documented as of this encounter
--- OUTSIDE RECORDS SUMMARY | 2024-01-15 16:15 | XMS_ITS | Encounter Summary ---
Author Organization [facility] [place] [address] Care Team Providers Care Tool Machine Shop Supervisor Name Role Phone Jennifer Suarez APRN Primary Care Provider [phone] Encounter Details Date Type Department Care Team (Late st Contact Info) Description 07/14/2020 Ancillary Procedure Radiology Library at [facility] [place] [address] Tio Mayo MD [facility] [place] [address] Social History Tobacco Use Types Packs/Day Years [...] Lower Extremity (07/14/2020 12:00 AM EDT) Narrative [facility] - 07/16/2020 9:03 AM EDT This exam is auto-finalizing. It's purpose is for storage only. Tio Mayo MD IMG FILM LIBRARY ORD ERABLES [place], [place] documented in this encounter Visit Diagnoses Not on filedocumented in this encounter Care Teams Tool Machine Shop Supervisor Relationship Specialty Start Date End Date Jennifer Suarez, ASSISTANT PRODUCT MANAGER [address] [place] [facility] [address] PCP - General Family Medicine 07/14/20 11/20/22 documented as of this encounter
--- OUTSIDE RECORDS SUMMARY | 2024-01-15 16:15 | XMS_ITS | Encounter Summary ---
Author Organization [facility] Address [facility] [place] [address] Care Team Providers Care High Lift Mule Operator Name Role Phone Jennifer Suarez APRN Primary Care Provider [phone] Reason for Referral * Diagnostic Test (Routine) - Closed Specialty Diagnoses / Procedures Referred By Contac t Referred To Contact Radiology Diagnoses Left foot pain Procedures XR Fluoro Guided Joint Injection Medium Left Freddie Mtz MD [facility] [place] [address] [facility] Rad Xray [address] [place] [address] [place] [address] Referral ID Status Reason Start Date Expiration Date V isits Requested Visits Authorized [id number] Closed Specialty Service Requested 08/17/2020 02/17/2022 1 1 Reason for Visit * Reason Comments Establish Care Left foot/ankle pain HO Left Ankle Fusion 2017 KATY * Consultation (Routine) - Closed Specialty Diagnoses / Procedures Referred By Contac t Referred To Contact Orthopaedics Diagnoses LEFT FOOT/ANKLE PAIN/ HO L ANKLE FUSION 2017/ KATY Chung Lucas MD [address] [place] [address] Tio Mayo MD [facility] [place] [address] Referral ID Status Reason Start Date Expiration Date V isits Requested Visits Authorized [id number] Closed Consult, Test & Treat Connection Center PCP Updated and/or Approved 07/14/2020 07/14/2021 6 6 Encounter Details Date Type Department Care Team (Late st Contact Info) Description 08/17/2020 4:00 PM EDT Office [place] [address] Tio Mayo MD [facility] [place] [address] Left foot pain Social History Tobacco Use [...] the request of: Chung Lucas MD [address] [place] [phone] History of Present Illness: Susan Whitney is a 50 y.o. female who presents with several months of the atraumatic onset of progressive left ankle pain after rolling her ankle in the late fall 2019. 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 The patient did very well after that [...] who have questions please contact the health floor care technician that requested your imaging first. ? Narrative 09/07/2020 10:30 AM EDT HISTORY: Left ankle arthritis LEFT ANKLE TIBIOTALAR JOINT ??INJECTION WITH ANESTHETIC ONLY UNDER FLUOROSCOPY TECHNIQUE: After an extensive conversation with the patient regarding risks and benefits, oral and written consent were obtained. A pre- procedural time-out was performed, including review of the patient's relevant electronic medical record and allergies, as per [facility] protocol. The patient was placed supine on [...] relevant electronic medicalrecord and allergies, as per [facility] protocol. The patient was placed supine on [...] patients who have questions please contactthe health floor care technician that requested your imaging first. Tio Mayo MD IMG FLUORO ORDERABLE S documented in this encounter Visit Diagnoses Diagnosis Left foot pain Pain in limb Left foot pain Pain in limb documented in this encounter Care Teams High Lift Mule Operator Relationship Specialty Start Date End Date Jennifer Suarez APRN [address] [place] [address] PCP - General Family Medicine 07/14/20 11/20/22 documented as of this encounter
--- OUTSIDE RECORDS SUMMARY | 2024-01-15 16:15 | XMS_ITS | Encounter Summary ---
Author Organization [facility] Address [facility] [place] [address] Care Team Providers Care Loan Servicing Officer Name Role Phone Jennifer Suarez APRN Primary Care Provider [phone] Reason for Visit * Auth/Cert Specialty Diagnoses [...] Expiration Date Visits Re quested Visits Authorized [id number] 1 1 Encounter Details Date Type Department Care Team (Late st Contact Info) Description 12/01/2020 7:31 AM EDT Anesthesia [place] [address] Lambert Patino MD [facility] [place] [address] Gregoria Buchanan MD [facility] [place] [address] Anesthesia Record Procedure Summary Procedure Name Responsible [...] basilic vein (medial side of arm), left; hhyc-tmt-xepown catheter system; 22 gauge; distraction, tolerated well; [...] Procedure Summary Date: 12/01/20 Room / Location: [facility] OR [facility] MAIN OR Anesthesia Start: 730 Anesthesia Stop: 947 Procedures: REMOVAL OF IMPLANT, DEEP, FOOT (WRVU 5.96) (Left Foot) OSTEOTOMY, CALCANEUS (WRVU 9.73) (Left Ankle) MODIFIER 7.3 CANNULATED SCREWS SYNTHES (Left Foot) Diagnosis: (retained left subtalar screws, hindfoot varus) Surgeons: Tio Mayo MD Responsible Provider: Lambert Patino MD Anesthesia Type: general ASA Status: 3 All Anesthesia Providers: Anesthesiologist: Lambert Patino MD ELEMENTARY SCHOOL LIBRARIAN: Iwona Zaragoza CRNA Student Nurse Biomedical Repair Technician: Skye Gale Vitals Value Taken Time BP 112/68 12/01/20 1115 Temp 36 ??C (96.8 ??F) 12/01/20 0945 Pulse Resp 16 12/01/20 1100 SpO2 98 % 12/01/20 1123 Pain Level 5 12/01/20 1021 Vitals shown include unvalidated device data. Patient Location: PACU/[facility] Level of Consciousness: Awake and Alert Pain [...] Joint Injection Medium Left 09/06/2020 Janell Shah, HOSPITALITY HOST [facility] RAD XRAY Social History Tobacco [...] 20mls Saphenous - 10mls Freddie Lyle MD BEATER OUT LEVELING MACHINE [facility] documented in this encounter Visit Diagnoses [...] mg documented in this encounter Care Teams Loan Servicing Officer Relationship Specialty Start Date End Date Jennifer Suarez, HOSPITALITY HOST [address] [place] [address] PCP - General Family Medicine 07/14/20 11/20/22 documented as of this encounter
--- OUTSIDE RECORDS SUMMARY | 2024-01-15 16:15 | XMS_ITS | Encounter Summary ---
Author Organization [facility] Address [facility] [place] [address] Care Team Providers Care Leases And Land Supervisor Name Role Phone Jennifer Suarez APRN Primary Care Provider [phone] Encounter Details Date Type Department Care Team (Latest Contact Info) Description 04/01/2021 12:32 PM EST - 04/01/2021 11:59 PM [facility] Hospital Encounter XRay at [address] [place] [address] Tio Mayo MD [facility] [place] [address] Acquired left hindfoot varus Discharge Disposition: Home [...] questions please contact the health resident care manager that requested your imaging first. [...] have questions please contactthe health resident care manager that requested your imaging first. Tio Mayo MD IMG DX ORDERABLES documented in this encounter Visit Diagnoses Diagnosis Acquired left hindfoot varus documented in this encounter Care Teams Leases And Land Supervisor Relationship Specialty Start Date End Date Jennifer Suarez, ROMINA [address] [place] [address] PCP - General Family Medicine 07/14/20 11/20/22 documented as of this encounter
--- OUTSIDE RECORDS SUMMARY | 2024-01-15 16:15 | XMS_ITS | Encounter Summary ---
Author Organization [facility] Address [facility] [place] [address] Care Team Providers Care Electronics Production Supervisor Name Role Phone Jennifer Suarez APRN Primary Care Provider [phone] Encounter Details Date Type Department Care Team (Late st Contact Info) Description 07/16/2021 Orders [place] [address] Karey De PA [facility] [place] [address] Acquired left hindfoot varus s/p lateral closing [...] Gael documented in this encounter Care Teams Electronics Production Supervisor Relationship Specialty Start Date End Date Jennifer Suarez, ROMINA [address] [place] [address] PCP - General Family Medicine 07/14/20 11/20/22 documented as of this encounter
--- OUTSIDE RECORDS SUMMARY | 2024-01-15 16:15 | XMS_ITS | Encounter Summary ---
Author Organization [facility] [place] [address] Care Team Providers Care Refinish Technician Name Role Phone Jennifer Suarez APRN Primary Care Provider [phone] Reason for Visit * Reason Onset Date Comments Disability Paperwork 01/27/2021 Encounter Details Date Type Department Care Team (Late st Contact Info) Description 01/27/2021 Telephone [place] [address] Tio Mayo MD [facility] [place] [address] Disability Paperwork Social History Tobacco Use Types [...] on filedocumented in this encounter Care Teams Refinish Technician Relationship Specialty Start Date End Date Jennifer Suarez APRN [address] [place] [address] PCP - General Family Medicine 07/14/20 11/20/22 documented as of this encounter
--- OUTSIDE RECORDS SUMMARY | 2024-01-15 16:15 | XMS_ITS | Encounter Summary ---
Author Organization [facility] Address [facility] [place] [address] Care Team Providers Care Electrical Logging Operator Name Role Phone Jennifer Suarez APRN Primary Care Provider [phone] Reason for Visit * Auth/Cert Specialty Diagnoses [...] Expiration Date Visits Re quested Visits Authorized [id number] 1 1 Encounter Details Date Type Department Care Team (Latest Contact Info) Description 12/01/2020 5:39 AM EDT - 12/01/2020 11:46 AM EDT Hospital En[place] [address] Tio Covarrubias MD [facility] [place] [address] Discharge Disposition: Home Social History Tobacco Use [...] facilitate a bowel movement. If needed an obva-jxh-twycuhm medication, MiraLAX can also be used to [...] control your pain. Call your doctor at [phone] if: You have a fever > 101.5 or experience chills Increased discharge from the incision Any redness or swelling around the incision Increased pain or change in the pain that is not controlled by your pain medications. FOLLOW UP APPOINTMENTS: 1. You will have follow up appointments at [facility] as indicated in Future Appointments and Orders. [...] Center 12/21/2020 4:30 PM Tio Covarrubias MD [facility] ORTH [address] [place] [address] documented in this encounter Medications at Time [...] Covarrubias MD - 12/01/2020 8:01 AM EDT [facility] Operative Note Patient Name: Susan Whitney : [id number] MR#: [id number] Case Date: 12/01/2020 Surgeon: Surgeon(s) and Role: [...] Implant Name Type Inv. Item Serial No. Durability Technician Lot No. LRB No. Used Action GRAFT BONE FILLER [id number] CHIPS CANC PRESERVON READIGRAFT ([id number]) (AutoReq) - [id number] IMPLANTS GRAFT BONE FILLER [id number] CHIPS CANC PRESERVON READIGRAFT ([id number]) (AutoReq) [facility] HE Left 1 Implanted STAPLE [id number] COMP NITINOL SPEED TITAN ([id number]) (AutoReq) - [id number] IMPLANTS STAPLE [id number] COMP NITINOL SPEED TITAN (8981944) (AutoReq) [employer] [facility] GABY [id number] Left 1 Implanted STAPLE [id number] COMP NITINOL SPEED TITAN (0641619) (AutoReq) - [id number] IMPLANTS STAPLE [id number] COMP NITINOL SPEED TITAN (8323215) (AutoReq) [employer] [facility] GABY [id number] Left 1 Implanted K WIRE FIX [id number] TROCAR POINT THREADED BT END SS (7106622) - [id number] IMPLANTS K WIRE FIX [id number] TROCAR POINT THREADED BTH END SS (6767523) [employer] - MICRO[employer]RE Left 1 Implanted and Explanted PIN FIX 7/64X9IN TROCAR POINT SGL END SS JONNY ([id number]) - [id number] IMPLANTS PIN FIX 7/[id number] POINT SGL END SS STEINMANN (6484188) [employer] - MICRO[employer]RE Left 1 Implanted and Explanted PIN FIX 5/32X9IN TROCAR POINT SGL END SS STE[place]MANN ([id number]) - [id number] IMPLANTS PIN FIX 5/[id number] POINT SGL END SS STEINMANN (1865134) [employer] - MICROAIRE Left 1 Implanted and Explanted Infection Bundle used? N/A Attestation: Case Date: 12/01/2020 I was present and I participated during the entire procedure (does not need to include opening and closing). TOI COVARRUBIAS MD 12/01/2020 documented in this encounter Plan of Treatment Not on file documented as of this encounter Procedures Procedure Name Priority Date/Time Associated Diagnosis Comments XR FLUORO NO RAD <1HR - OR USE Routine 12/01/2020 9:21 AM EDT MODIFIER 7.3 CANNULATED SCREWS SYNTHES 12/01/2020 7:34 AM EDT retained left subtalar screws, hindfoot varus Osteotomy Heel Bone (87775) 12/01/2020 7:34 AM EDT retained left subtalar screws, hindfoot varus Removal Deep Implant (29982) 12/01/2020 7:34 AM EDT retained left subtalar [...] RN) documented in this encounter Care Teams Electrical Logging Operator Relationship Specialty Start Date End Date Jennifer Suarez, ROMINA [address] [place] [address] PCP - General Family Medicine 07/14/20 11/20/22 documented as of this encounter
--- OUTSIDE RECORDS SUMMARY | 2024-01-15 16:15 | XMS_ITS | Encounter Summary ---
Author Organization [facility] Address [facility] [place] [address] Care Team Providers Care Plant Packer Name Role Phone Jennifer Suarez APRN Primary Care Provider [phone] Reason for Visit * Reason Comments Follow Up Surgery L FOOT/ANKLE PAIN/ H O L ANKLE FUSION 2016, discuss surg options Encounter Details Date Type Department Care Team (Late st Contact Info) Description 10/12/2020 4:00 PM EDT Office [place] [address] Tio Mayo MD [facility] [address] ORTHOPAEDIC [place] [address] Arthritis of left ankle (Primary Dx) Social [...] foot documented in this encounter Care Teams Plant Packer Relationship Specialty Start Date End Date Jennifer Suarez, MANIFEST/ORDER ORGANIZER PRINT ORDERS [address] [place] [address] PCP - General Family Medicine 07/14/20 11/20/22 documented as of this encounter
--- OUTSIDE RECORDS SUMMARY | 2024-01-15 16:15 | XMS_ITS | Encounter Summary ---
Author Organization [facility] Address [facility] [place] [address] Care Team Providers Care Electric Wheelchair Repairer Name Role Phone Jennifer Suarez APRN Primary Care Provider [phone] Reason for Visit * Reason Comments Follow Up Surgery s/p YEE L Foot DOS 0 12/01/2020 Encounter Details Date Type Department Care Team (Late st Contact Info) Description 04/01/2021 1:30 PM EST Office [place] [address] Karey De PA [facility] [place] [address] Acquired left hindfoot varus Social History Tobacco [...] NAME: Susan Whitney AGE: 51 y.o. MR#: [id number] DATE OF VISIT: 04/01/2021 CHIEF COMPLAINT: 4 [...] foot at bedtime. 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 She normally works from 5:00 am to [...] have questions please contact the health healthcare receptionist that requested your imaging first. ? Narrative [...] who have questions please contactthe health healthcare receptionist that requested your imaging first. 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
--- OUTSIDE RECORDS SUMMARY | 2024-01-15 16:15 | XMS_ITS | Encounter Summary ---
Author Organization [facility] Address [facility] [place] [address] Care Team Providers Care Picture Framer Name Role Phone Jennifer Suarez APRN Primary Care Provider [phone] Reason for Referral * Physical Therapy (Routine) - Closed Specialty Diagnoses / Procedures Referred By Contelida t Referred To Contact Diagnoses Plantar fasciitis Karey De PA [facility] [place] [address] Referral ID Status Reason Start Date Expiration Date V isits Requested Visits Authorized [id number] Closed Evaluate and Treat 06/10/2021 12/07/2021 12 12 Encounter Details Date Type Department Care Team (Late st Contact Info) Description 06/10/2021 3:30 PM EDT Office [place] [address] Karey De PA [facility] [place] [address] Plantar fasciitis Social History Tobacco Use Types [...] NAME: Susan Whitney AGE: 51 y.o. MR#: [id number] DATE OF VISIT: 06/10/2021 CHIEF COMPLAINT: 6 [...] fibromatosis documented in this encounter Care Teams Picture Framer Relationship Specialty Start Date End Date Jennifer Suarez APRN [address] [facility] [address] PCP - General Family Medicine 07/14/20 11/20/22 documented as of this encounter
--- OUTSIDE RECORDS SUMMARY | 2024-01-15 16:16 | XMS_ITS | Encounter Summary ---
[facility] Organization [facility] [place] [address] Care Team Providers Care Senior Cobol Developer Name Role Phone Adarsh Wynn MD Primary Care Provider Reason for Visit * Audiology Exam (Routine) - Closed Specialty Diagnoses / Procedures Referred By Cheri silverman Referred To Contact Audiology Diagnoses hearing loss/dizziness Adarsh Wynn MD [facility] [address] [place] [address] [facility] [address] [place] [id number] Referral ID Status Reason Start Date Expiration Date V isits Requested Visits Authorized [id number] Closed Consult, Test & Treat Connection Center 05/25/2015 05/24/2016 1 1 Encounter Details Date Type Department Care Team (Latest Contact Info) Description 06/03/2015 11:00 AM EST Office Visit Audiology at [address] [address] Laura Coffey AUD [facility] [place] [address] Asymmetrical sensorineural hearing loss; Tinnitus, [...] who contributed to the case history. Ms. 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 She has been followed by Marcos Burks MD in [place], [place] for a left BAHA (surgery completed [...] review). She currently uses an Audibel START [id number]-cly-ear hearing aid for her right ear, which was fit two years ago through a center in [place], as well as a Cochlear 3 Power (BP 110) bone-anchored hearing device for the left side. While she continues to receive audiologic management and support for her right hearing aid through the center in [place] where she was fit, she reported today [...] in 2005 with Marcos Burks MD in [place], [place] EVALUATION: (please refer to audiogram) RESULTS/IMPRESSIONS: [...] not hesitate to contact this Section at [phone] if there are questions regarding this report or its recommendations[place] [address] Attachment: audiogram CC: MD [address] [address] documented in this encounter Plan of Treatment Not on file documented as of this encounter Visit Diagnoses Diagnosis Asymmetrical sensorineural hearing loss Sensorineural hearing loss, asymmetrical Tinnitus, bilateral Unspecified tinnitus Vertigo Dizziness and giddiness documented in this encounter Care Teams Senior Cobol Developer Relationship Specialty Start Date End Date Adarsh Wynn MD [facility] [address] [place] [address] PCP - General General Internal Medicine 05/25/1507/24 documented as of this encounter
--- OUTSIDE RECORDS SUMMARY | 2024-01-15 16:16 | XMS_ITS | Encounter Summary ---
[place] [address] Care Team Providers Care Retort Kiln Burner Name Role Phone Adarsh Wynn MD Primary Care Provider [phone] Encounter Details Date Type Department Care Team (Late st Contact Info) Description 08/31/2015 Telephone [place] [id number] Lyric Wallace Social History Tobacco Use Types [...] on filedocumented in this encounter Care Teams Retort Kiln Burner Relationship Specialty Start Date End Date Adarsh Wynn MD [facility] [address] [place] [address] PCP - General General Internal Medicine 05/25/1507/24 documented as of this encounter
--- OUTSIDE RECORDS SUMMARY | 2024-01-15 16:16 | XMS_ITS | Clinical Summary ---
Author Organization [facility] Address [address] [place] [address] Care Team Providers Care Program Director Scouting Name Role Phone Unknown, Provider Primary Care Provider Encounters Date Type Department Care Team Description 01/09/2024 Lab Requisition [facility] Pathology & Laboratory [address] [address] Ramiro Melo MD Encounter for other general examination 01/08/2024 Lab Requisition [facility] Pathology & Laboratory [address] [address] Outr Resulting Lab, Provider from Last 3 [...] 3-dose series) 03/19 COVID-19 Vaccine ( season) 2023 Procedures Procedure Name Priority Date/Time Associated Diagnosis Comments ALPHA 1 ANTITRYPSIN Routine 01/08/2024 9 :28 EDT from Last 3 Months Results * (ABNORMAL) ALPHA 1 ANTITRYPSIN (01/08/2024 9:28 EDT) Alpha 1 Antitrypsin 78(L) 90 - 200 mg/dL 01/09/2024 8:59 EDT [facility] Blood VENOUS BLOOD / Unknown 01/08/2024 9:28 EDT 01/08/2024 17:11 EDT Provider Outr Resulting Lab CHEMISTRY & BLOOD GAS ORDERABLES [facility] [address] [place] [address] from Last 3 Months Care Teams Program Director Scouting Relationship Specialty Start Date End Date Unknown, Provider, PCP - General 11/06/16
--- OUTSIDE RECORDS SUMMARY | 2024-01-15 16:16 | XMS_ITS | Encounter Summary ---
Author Organization [facility] [place] [address] Care Team Providers Care Work Order Sorting Clerk Name Role Phone Adarsh Wynn MD Primary Care Provider Encounter Details Date Type Department Care Team (Latest Contact Info) Description 07/20/2015 3:15 PM EDT Office Visit Audiology at [address] [address] Ayleen Youngblood AUD [facility] [place] [address] Asymmetrical sensorineural hearing loss; Tinnitus, bilateral Social [...] Surgery for left Baha placement performed at [facility] in 2005. ?? Initially used the Baha [...] not as noisy [place]where she worked in [place] She has difficulty understanding speech if she is not facing the speaker. Her also reports that she has difficulty understanding him at home. ?? Uses a Audibel (owned by [employer]) utilities manager in the ear hearing aid in the right ear. The hearing aid programming is managed by a provider in [place]. She typically uses the hearing aid programming [...] side. It is recommended that she contact [employer]'s Reimbursement Services to inquire on potential insurance coverage (she does not think her insurance covers Baha replacement equipment). [place] [employer] bilitation may also be a source of potential funding. Please do not hesitate to contact this Section at [phone] if there are questions regarding this report or its recommendations. Nazia [place] [address] ; AMPLIFICATION DEVICE(S): HEARING AID RIGHT LEFT Make/Model/Style Audibel hearing aid (managed at outside clinic) [employer] BP110 Power Casing Color [place] Faceplate Serial Number [id number] Battery Size/Battery Club 675 Invoice number / date PROGRAM/SETTINGS Fitting Algorithm BC Direct Verification Method Programs P1= Everyday P2= Noise, Directional Microphone Disabled Features Other WARRANTY Original Fit Date Unknown- original programming at [facility] performed on 07/20/15 Current Status Unknown (likely out of warranty) [employer] Make/Model Color Serial Number Invoice number/date documented in this encounter Plan of Treatment Not on file documented as of this encounter Visit Diagnoses Diagnosis Asymmetrical sensorineural hearing loss Sensorineural hearing loss, asymmetrical Tinnitus, bilateral Unspecified tinnitus documented in this encounter Care Teams Work Order Sorting Clerk Relationship Specialty Start Date End Date Adarsh Wynn MD [facility] [address] [place] [address] PCP - General General Internal Medicine 05/25/1507/24 documented as of this encounter
--- OUTSIDE RECORDS SUMMARY | 2024-01-15 16:16 | XMS_ITS | Encounter Summary ---
Author Organization [facility] Address [address] [place] [address] Care Team Providers Care Surgical Training Specialist Name Role Phone Unknown, Provider Primary Care Provider [phone] Encounter Details Date Type Department Care Team (Late st Contact Info) Description 10/06/2022 Lab Requisition [facility] Pathology & Laboratory Medicine - [address] [address] Outr Resulting Lab, Provider Social History Tobacco [...] 860.5 See Note mIU/mL 10/09/2022 10:51 EDT [facility] Comment: Reference Range for Hep B Surface Ab, Quant: Positive: >= 10.0 mIU/mL Negative: ??< 10.0 mIU/mL Patient is presumed to be immune to infection with Hepatitis B Virus. Hep B Surface Ab, Qualitative Positive See Note 10/09/2022 10:51 EDT [facility] Comment: Reference Range for Hep B Surface Ab, Qual: Unvaccinated: ??Negative Vaccinated: ??Positive Blood VENOUS BLOOD / Unknown 10/06/2022 17:06 EDT 10/08/2022 15:38 EDT Provider Outr Resulting Lab CHEMISTRY & BLOOD GAS ORDERABLES [facility] [address] [place] [address] documented in this encounter Visit Diagnoses Not on filedocumented in this encounter Care Teams Surgical Training Specialist Relationship Specialty Start Date End Date Unknown, Provider, PCP - General 11/06/16 documented as of this encounter
--- OUTSIDE RECORDS SUMMARY | 2024-01-15 16:16 | XMS_ITS | Encounter Summary ---
Author Organization [facility] Address [address] [place] [address] Care Team Providers Care Director Corporate Compliance Name Role Phone Unknown, Provider Primary Care Provider Encounter Details Date Type Department Care Team (Late st Contact Info) Description 03/07/2022 14:15 EST Phlebotomy Only [facility] - [address] [address] Limb Driver, [facility] Lab Immunity status testing; Screening examination for [...] Quantiferon Interpretation Negative Negative 03/08/2022 13:30 EST [facility] Comment:No interferon-gamma response to M. tuberculosis antigens was detected. ??Infection with M. tuberculosis is unlikely. A single negative result does not exclude infection with M. tuberculosis. ??In patients at high risk for M. tuberculosis infection, a second test should be considered. TB1 Ag minus Nil 0.00 IU/ml 03/08/20 13:30 EST [facility] TB2 Ag minus Nil 0.00 IU/mL 03/08/20 13:30 EST [facility] Blood VENOUS BLOOD / Unknown Venipuncture / Unknown 03/07/2022 14:39 EST 03/08/2022 12:40 EST Narrative [facility] - 03/08/2022 13:30 EST Results were obtained with the [employer] QuantiFERON-TB Gold Plus CLIA. New platform in use 12/01/2020 Nelson Correia MD IMMUNOLOGY AND SEROLOGY ORDERABLES [facility] [address] [place] [address] * QUANTIFERON MITOGEN (PERFORMABLE) (03/07/2022 14:39 EST) Blood VENOUS BLOOD / Unknown Venipuncture / Unknown 03/07/2022 14:39 EST 03/07/2022 14:39 EST Nelson Correia MD IMMUNOLOGY AND SEROLOGY ORDERABLES Performing Organization Address [facility] de Phone Number [facility] [address] [place] [address] * QUANTIFERON TB2 (PERFORMABLE) (03/07/2022 14:39 EST) Blood VENOUS BLOOD / Unknown Venipuncture / Unknown 03/07/2022 14:39 EST 03/07/2022 14:39 EST Nelson Correia MD IMMUNOLOGY AND SEROLOGY ORDERABLES Performing Organization Address [facility] Co de Phone Number [facility] [address] [place] [address] * QUANTIFERON TB1 (PERFORMABLE) (03/07/2022 14:39 EST) Blood VENOUS BLOOD / Unknown Venipuncture / Unknown 03/07/2022 14:39 EST 03/07/2022 14:39 EST Nelson Correia MD IMMUNOLOGY AND SEROLOGY ORDERABLES Performing Organization Address [facility] Co de Phone Number [facility] [address] [place] [address] * QUANTIFERON NIL (PERFORMABLE) (03/07/2022 14:39 EST) Blood VENOUS BLOOD / Unknown Venipuncture / Unknown 03/07/2022 14:39 EST 03/07/2022 14:39 EST Nelson Correia MD IMMUNOLOGY AND SEROLOGY ORDERABLES Performing Organization Address [facility] Co de Phone Number [facility] [address] [place] [address] * VARICELLA IGG ANTIBODY (03/07/2022 14:39 EST) Varicella IgG Ab Positive See Note 03/08/2022 10:10 EST [facility] Comment:Presence of detectab le Varicella Zoster virus IgG antibodies. Blood VENOUS BLOOD / Unknown Venipuncture / Unknown 03/07/2022 14:39 EST 03/07/2022 14:39 EST Nelson Correia MD IMMUNOLOGY AND SEROLOGY ORDERABLES Performing Organization Address [facility] Co de Phone Number [facility] [address] [place] [address] * RUBELLA IGG ANTIBODY (03/07/2022 14:39 EST) Rubella IgG Ab Positive See Note 03/08/2022 10:18 EST [facility] Comment:Positive for IgG ant ibodies to Rubella virus. Blood VENOUS BLOOD / Unknown Venipuncture / Unknown 03/07/2022 14:39 EST 03/07/2022 14:39 EST Nelson Correia MD CHEMISTRY & BLO OD GAS ORDERABLES Performing Organization Address [facility] de Phone Number [facility] [address] [place] [address] * MUMPS ANTIBODY IGG (03/07/2022 14:39 EST) Mumps Antibody IgG Positive See Note 03/08/2022 10:16 EST [facility] Comment:Presence of detectab le mumps virus IgG antibodies. Blood VENOUS BLOOD / Unknown Venipuncture / Unknown 03/07/2022 14:39 EST 03/07/2022 14:39 EST Nelson Correia MD IMMUNOLOGY AND SEROLOGY ORDERABLES Performing Organization Address [facility] de Phone Number [facility] [address] [place] [address] * MEASLES IGG AB (03/07/2022 14:39 EST) Measles IgG Ab Positive See Note 03/08/2022 10:13 EST [facility] Comment:Presence of detectab le measles virus IgG antibodies. Blood VENOUS BLOOD / Unknown Venipuncture / Unknown 03/07/2022 14:39 EST 03/07/2022 14:39 EST Nelson Correia MD IMMUNOLOGY AND SEROLOGY ORDERABLES Performing Organization Address [facility] Co de Phone Number [facility] [address] [place] [address] * HEPATITIS B SURFACE ANTIBODY (03/07/2022 14:39 EST) Hep B Surface Ab, Quantitative 7.6 See Note mIU/mL 03/08/2022 9:47 EST [facility] Comment: Reference Range for Hep B Surface Ab, Quant: Positive: >= 10.0 mIU/mL Negative: ??< 10.0 mIU/mL Patient is presumed to not be immune to infection with Hepatitis B Virus. Hep B Surface Ab, Qualitative Negative See Note 03/08/2022 9:47 EST [facility] Comment: Reference Range for Hep B Surface Ab, Qual: Unvaccinated: ??Negative Vaccinated: ??Positive Blood VENOUS BLOOD / Unknown Venipuncture / Unknown 03/07/2022 14:39 EST 03/07/2022 14:39 EST Nelson Correia MD CHEMISTRY & BLO OD GAS ORDERABLES Performing Organization Address [facility] Co de Phone Number [facility] [address] [place] [address] documented in this encounter Visit Diagnoses Diagnosis Immunity status testing Antibody response examination Screening examination for pulmonary tuberculosis documented in this encounter Care Teams Director Corporate Compliance Relationship Specialty Start Date End Date Unknown, Provider, PCP - General 11/06/16 documented as of this encounter
--- OUTSIDE RECORDS SUMMARY | 2024-01-15 16:16 | XMS_ITS | Encounter Summary ---
Author Organization [facility] Address [address] [place] [address] Care Team Providers Care Manager Retention Name Role Phone Unknown, Provider Primary Care Provider Encounter Details Date Type Department Care Team (Late st Contact Info) Description 03/06/2022 Orders Only [facility] Employee [facility] - [address] [address] Adore Roman, RN [address] [place] [address] Social History Tobacco Use Types Packs/Day Years [...] filedocumented in this encounter Care Teams Manager Retention Relationship Specialty Start Date End Date Unknown, Provider, PCP - General 11/06/16 documented as of this encounter
--- OUTSIDE RECORDS SUMMARY | 2024-01-15 16:16 | XMS_ITS | Encounter Summary ---
Author Organization [facility] [place] [address] Care Team Providers Care Microcomputer Technician Name Role Phone Adarsh Wynn MD Primary Care Provider [phone] Encounter Details Date Type Department Care Team (Latest Contact Info) Description 11/24/2015 1:15 PM EDT Office Visit Audiology at [address] [address] Aby Calderon, AUD [facility] [place] [address] Sensorineural hearing loss, asymmetrical Social History Tobacco [...] Surgery for left Baha placement performed at [facility] in 2005. 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 Her boyfriend also reports that she has difficulty understanding him at home. ?? Uses an Audibel (owned by [employer]) anaesthesiologist in the ear hearing aid in the right ear. The hearingaid programming is managed by a provider in [place]. She typically uses the hearing aid programming [...] the purpose of today's evaluation instead. A Tribotek V90-SP BTE (#[id number]) was selected and coupled to a Comply [...] with either of these options [place] [facility]. Additionally audiologic evaluation in one year was recommended to continue to monitor hearing sensitivity, or sooner as necessary for any suspected changes. She will also follow-up otologically as recommended by Dr. Clarke. Regina Calderon MS, [facility] [place] [address] (fax) Copy: Edgar Clarke MD [...] BC Right ear was aided with a [facility] Tribotek V90-SP BTE (#[id number]) coupled to a Comply eartip - The [...] BC Right ear was aided with a [employer]iahe V90-SP BTE (#[id number])coupled to a Comply eartip - The aid [...] asymmetrical documented in this encounter Care Teams Microcomputer Technician Relationship Specialty Start Date End Date Adarsh Wynn MD [facility] [address] [place] [address] PCP - General General Internal Medicine 05/25/1507/24 documented as of this encounter
--- OUTSIDE RECORDS SUMMARY | 2024-01-15 16:16 | XMS_ITS | Encounter Summary ---
[place] [address] Care Team Providers Care Tack Coverer Name Role Phone Aadrsh Wynn MD Primary Care Provider [phone] Reason for Referral * Consultation (Routine) - Closed Specialty Diagnoses / Procedures Referred By Cheri silverman Referred To Contact Podiatry Gisell Hill MD [facility] [place] [address] [facility] [address] [place] [phone] Referral ID Status Reason Start Date Expiration Date V isits Requested Visits Authorized [id number] Closed Consult, Test & Treat 10/14/2015 10/13/2016 1 1 Reason for Visit * Reason Comments Foot Pain Encounter Details Date Type Department Care Team (Late st Contact Info) Description 10/14/2015 12:01 PM EDT - 10/14/2015 2:39 PM EDT [place] [address] Jamal Ford MD [address] [place] [address] Foot pain, left; Left ankle pain, unspecified [...] EDT We have made a referral to [facility]. You should receive a call regarding your appointment. You have been prescribed ibuprofen. You may take this as indicated. It is advised that you also take zantac (ranitidine or famotidine) twice a day when taking ibuprofen for GI upset. * Attachments The following attachments cannot be sent through Care Everywhere. * FOOT PAIN (LITHUANIAN) documented in this encounter Medications at Time [...] while to get in to see her PCP/drawbridge operator so [facility] [...] of the right foot diagnosed by her drawbridge operator. He also removed a toenail on the [...] for GI upset. Made a referral to [facility] and patient also stated she will try to see her drawbridge operator as well for continued follow up. We [...] limb documented in this encounter Care Teams Tack Coverer Relationship Specialty Start Date End Date Adarsh Wynn MD [facility] [address] [place] [address] PCP - General General Internal Medicine 05/25/1507/24 documented as of this encounter
--- OUTSIDE RECORDS SUMMARY | 2024-01-15 16:16 | XMS_ITS | Encounter Summary ---
Author Organization [facility] Address [address] [place] [address] Care Team Providers Care Rail Car Mechanic Name Role Phone Unknown, Provider Primary Care Provider Encounter Details Date Type Department Care Team (Late st Contact Info) Description 09/07/2022 Orders Only [facility] - [address] [address] Betzaida Hernandez RN Immunity status testing (Primary [...] examination documented in this encounter Care Teams Rail Car Mechanic Relationship Specialty Start Date End Date Unknown, Provider, PCP - General 11/06/16 documented as of this encounter
--- OUTSIDE RECORDS SUMMARY | 2024-01-15 16:16 | XMS_ITS | Encounter Summary ---
Author Organization [facility] Address [address] [place] [address] Care Team Providers Care Motorcycle Repair Shop Supervisor Name Role Phone Unknown, Provider Primary Care Provider Encounter Details Date Type Department Care Team (Late st Contact Info) Description 01/08/2024 Lab Requisition [facility] Pathology & Laboratory Medicine - [facility] [address] [place], [place] [address] Outr Resulting Lab, Provider Social History Tobacco [...] 1 ANTITRYPSIN Routine 01/08/2024 9 :28 EDT documented in this encounter Results * (ABNORMAL) ALPHA 1 ANTITRYPSIN (01/08/2024 9:28 EDT) Alpha 1 Antitrypsin 78(L) 90 - 200 mg/dL 01/09/2024 8:59 EDT [facility] Blood VENOUS BLOOD / Unknown 01/08/2024 9:28 EDT 01/08/2024 17:11 EDT Provider Outr Resulting Lab CHEMISTRY & BLOOD GAS ORDERABLES [facility] [address] [place], [place] [address] documented in this encounter Visit Diagnoses Not on filedocumented in this encounter Care Teams Motorcycle Repair Shop Supervisor Relationship Specialty Start Date End Date Unknown, Provider, PCP - General 11/06/16 documented as of this encounter
--- OUTSIDE RECORDS SUMMARY | 2024-01-15 16:16 | XMS_ITS | Encounter Summary ---
Author Organization [facility] Address [address] [place] [address] Care Team Providers Care Control Panel Assembler Name Role Phone Unknown, Provider Primary Care Provider [phone] Encounter Details Date Type Department Care Team (Late st Contact Info) Description 11/02/2016 Results Only [facility] [phone] Jacinda Suarez, TAWANNA [address] [place], [place] [id number] Social History Tobacco Use Types Packs/Day Years [...] ? TOO BAEZ ? Accession #: ? [id number] ? : ? 1970 (Age: 46) ??F [...] and electronically signed by: ? Alem Gauthier [facility](ASCP) ? Report ??Date: 11/13/2016 10:42 HPV with Pap Test ? Date Ordered: ? 11/13/2016 ? Status: ?? Signed Out ?Date Complete: ? 11/14/2016 ? By: ??System Interface ? Date Reported: ? 11/14/2016 ? Interpretation RESULT: Negative for HPV. No E6 or E7 mRNA is detected from HPV types 16,18,31,33,35, 39,45,51,52,56,58, 59,66, and 68 by treatment specialist mediated amplification. Comments Document reviewed and electronically signed by: ? System Interface ? Report date: 11/14/2016 By the signature above, the attending physician certifies that he/she has personally conducted a gross and/or microscopic examination of the described specimens and rendered or confirmed the above diagnosis. End of Report [facility] 11/02/2016 11/06/2016 Jacinda Polishuk BOBBIN PAINTER PATHOLOGY ORDERABLES [facility] [address] [place] [address] documented in this encounter Visit Diagnoses Not on filedocumented in this encounter Care Teams Control Panel Assembler Relationship Specialty Start Date End Date Unknown, Provider, PCP - General 11/06/16 documented as of this encounter
--- OUTSIDE RECORDS SUMMARY | 2024-01-15 16:16 | XMS_ITS | Encounter Summary ---
Author Organization [facility] Address [address] [place] [address] Care Team Providers Care Radio Host Name Role Phone Unknown, Provider Primary Care Provider Encounter Details Date Type Department Care Team (Late st Contact Info) Description 11/19/2020 Lab Requisition [facility] Pathology & Laboratory Medicine - [facility] [address] [place] [address] Sneha Lizarraga, DO [address] [place], [place] [id number] Irritable bowel syndrome without diarrhea Social History [...] management options, if applicable. 11/23/2020 9:46 EDT [facility] Final Diagnosis A. COLON, CECUM, BIOPSY: - Colonic mucosa with no significant diagnostic abnormality. B. COLON, 50 CM, BIOPSY: - Colonic mucosa with no significant diagnostic abnormality. C. RECTUM, BIOPSY: - Colonic mucosa with no significant diagnostic abnormality. 11/23/2020 9:46 [facility] Attestation There was significant resident/fellow involvement in the diagnostic evaluation of this case. By the signature below, the attending physician certifies that they have personally conducted a gross and/or microscopic examination of the described specimens and rendered or confirmed the above diagnosis. 11/23/2020 9:46 [facility] at 0946 Clinical History Screening, IBS 11/23/2020 9:46 [facility] Gross Description A. Received in [...] 0.1 cm). Submitted intact in C1. MARYLIN GERMAIN([facility]) 11/19/2020 16:05 11/23/2020 9:46 [facility] Resident/Tam w: Justo Kwan, 11/23/2020 9:46 [facility] Performing Lab [facility] 11/23/2020 9:46 [facility] Scanned Images 11/23/2020 9:46 [facility] Tissue SPECIMEN FROM RECTUM / Unknown 11/19/2020 7:45 EDT 11/19/2020 15:50 EDT Tissue specimen (specimen) COLON STRUCTURE / Unknown 11/19/2020 7:45 EDT 11/19/2020 15:50 EDT Tissue specimen (specimen) SPECIMEN FROM RECTUM / Unknown 11/19/2020 7:45 EDT 11/19/2020 15:50 EDT Sneha Lizarraga DO PATHOLOGY ORDERABLES [facility] [address] [place] [address] documented in this encounter Visit Diagnoses Diagnosis Irritable bowel syndrome without diarrhea Irritable bowel syndrome documented in this encounter Care Teams Radio Host Relationship Specialty Start Date End Date Unknown, Provider, PCP - General 11/06/16 documented as of this encounter
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
--- OUTSIDE RECORDS SUMMARY | 2024-01-15 16:16 | XMS_ITS | Encounter Summary ---
[facility] [place] [address] Care Team Providers Care Warehouse Inventory Clerk Name Role Phone Adarsh Wynn MD Primary Care Provider [phone] Encounter Details Date Type Department Care Team (Late st Contact Info) Description 06/07/2015 External [place] [address] Laura Coffey AUD [facility] [place] [address] Social History Tobacco Use Types Packs/Day Years [...] filedocumented in this encounter Care Teams Warehouse Inventory Clerk Relationship Specialty Start Date End Date Adarsh Wynn MD [facility] [address] [place] [address] PCP - General General Internal Medicine 05/25/1507/24 documented as of this encounter
--- OUTSIDE RECORDS SUMMARY | 2024-01-15 16:16 | XMS_ITS | Encounter Summary ---
Author Organization [facility] Address [address] [place] [address] Care Team Providers Care Flat Machine Cutter Name Role Phone Unknown, Provider Primary Care Provider [phone] Encounter Details Date Type Department Care Team (Late st Contact Info) Description 01/09/2024 Lab Requisition [facility] Pathology & Laboratory Medicine - [facility] [address] [place] [address] Ramiro Melo MD [address] [place] [phone] Encounter for other general examination Social History Tobacco Use Types Packs/Day Years Used Date Smoking Tobacco: Never Assessed Sex and Gender Information Value Date Recorded Sex Assigned at Not on file Gender Identity Female 03/07/2022 14:17 EST Sexual Orientation Not on file documented as of this encounter Plan of Treatment Pending Results Name Type Priority Associated Diagnoses Date /Time PAP TEST Pathology Today Encounter for other general examination 01/08/2024 9:00 EDT documented as of this encounter Visit Diagnoses Diagnosis Encounter for other general examination documented in this encounter Care Teams Flat Machine Cutter Relationship Specialty Start Date End Date Unknown, Provider, PCP - General 11/06/16 documented as of this encounter
--- OUTSIDE RECORDS SUMMARY | 2024-01-15 16:16 | XMS_ITS | Referral Summary ---
Author Organization [facility] Address [address] [place] [address] Care Team Providers Care Concrete Mixer Operator Helper Name Role Phone Unknown, Provider Primary Care Provider Encounters Date Type Department Care Team Description 01/09/2024 Lab Requisition [facility] Pathology & Laboratory [address] [address] Ramiro Melo MD Encounter for other general examination 01/08/2024 Lab Requisition [facility] Pathology & Laboratory [address] [address] Outr Resulting Lab, Provider from Last 3 Months Social History Tobacco Use Types Packs/Day Years Used Date Smoking Tobacco: Never Assessed Sex and Gender Information Value Date Recorded Sex Assigned at Not on file Gender Identity Female 03/07/2022 14:17 EST Sexual Orientation Not on file Plan of Treatment Not on file Procedures Procedure Name Priority Date/Time Associated Diagnosis Comments ALPHA 1 ANTITRYPSIN Routine 01/08/2024 9 :28 EDT from Last 3 Months Results * (ABNORMAL) ALPHA 1 ANTITRYPSIN (01/08/2024 9:28 EDT) Alpha 1 Antitrypsin 78(L) 90 - 200 mg/dL 01/09/2024 8:59 EDT [facility] Blood VENOUS BLOOD / Unknown 01/08/2024 9:28 EDT 01/08/2024 17:11 EDT Provider Outr Resulting Lab CHEMISTRY & BLOOD GAS ORDERABLES [facility] [address] [place] [address] from Last 3 Months Care Teams Concrete Mixer Operator Helper Relationship Specialty Start Date End Date Unknown, Provider, PCP - General 11/06/16
--- OUTSIDE RECORDS SUMMARY | 2024-01-15 16:16 | XMS_ITS | Encounter Summary ---
Author Organization [facility] Address [address] [place] [address] Care Team Providers Care Wirer Passenger Car Name Role Phone Unknown, Provider Primary Care Provider [phone] Encounter Details Date Type Department Care Team (Late st Contact Info) Description 03/06/2022 Orders Only [facility] - Main [address] [address] Adore Roman RN [address] [place] [address] Screening examination for pulmonary tuberculosis (Primary Dx); [...] 10:10 EST [facility] Comment:Presence of detectab le Varicella Zoster virus IgG antibodies. Blood VENOUS BLOOD / Unknown Venipuncture / Unknown 03/07/2022 14:39 EST 03/07/2022 14:39 EST Nelson Correia MD IMMUNOLOGY AND SEROLOGY ORDERABLES [facility] [address] [place] [address] * RUBELLA IGG ANTIBODY (03/07/2022 14:39 EST) Rubella IgG Ab Positive See Note 03/08/2022 10:18 EST [facility] Comment:Positive for IgG ant ibodies to Rubella virus. Blood VENOUS BLOOD / Unknown Venipuncture / Unknown 03/07/2022 14:39 EST 03/07/2022 14:39 EST Nelson Correia MD CHEMISTRY & BLO OD GAS ORDERABLES Performing Organization Address [facility] Co de Phone Number [facility] [address] [place] [address] * MUMPS ANTIBODY IGG (03/07/2022 14:39 EST) Mumps Antibody IgG Positive See Note 03/08/2022 10:16 EST [facility] Comment:Presence of detectab le mumps virus IgG antibodies. Blood VENOUS BLOOD / Unknown Venipuncture / Unknown 03/07/2022 14:39 EST 03/07/2022 14:39 EST Nelson Correia MD IMMUNOLOGY AND SEROLOGY ORDERABLES Performing Organization Address [facility] Co de Phone Number [facility] [address] [place] [address] * MEASLES IGG AB (03/07/2022 14:39 EST) Measles IgG Ab Positive See Note 03/08/2022 10:13 EST [facility] Comment:Presence of detectab le measles virus IgG antibodies. Blood VENOUS BLOOD / Unknown Venipuncture / Unknown 03/07/2022 14:39 EST 03/07/2022 14:39 EST Nelson Correia MD IMMUNOLOGY AND SEROLOGY ORDERABLES Performing Organization Address [facility] Co de Phone Number [facility] [address] [place] [address] * HEPATITIS B SURFACE ANTIBODY (03/07/2022 14:39 EST) Hep B Surface Ab, Quantitative 7.6 See Note mIU/mL 03/08/2022 9:47 EST [facility] Comment: Reference Range for Hep B Surface Ab, Quant: Positive: >= 10.0 mIU/mL Negative: ??< 10.0 mIU/mL Patient is presumed to not be immune to infection with Hepatitis B Virus. Hep B Surface Ab, Qualitative Negative See Note 03/08/2022 9:47 EST [facility] Comment: Reference Range for Hep B Surface Ab, Qual: Unvaccinated: ??Negative Vaccinated: ??Positive Blood VENOUS BLOOD / Unknown Venipuncture / Unknown 03/07/2022 14:39 EST 03/07/2022 14:39 EST Nelson Correia MD CHEMISTRY & BLO OD GAS ORDERABLES [facility] [address] [place] [address] documented in this encounter Visit Diagnoses Diagnosis Screening examination for pulmonary tuberculosis- Primary Immunity status testing Antibody response examination documented in this encounter Care Teams Wirer Passenger Car Relationship Specialty Start Date End Date Unknown, Provider, PCP - General 11/06/16 documented as of this encounter
--- OUTSIDE RECORDS SUMMARY | 2024-01-15 16:16 | XMS_ITS | Encounter Summary ---
Author Organization [facility] Address [address] [place] [address] Care Team Providers Care Machine I Engraver Name Role Phone Unknown, Provider Primary Care Provider [phone] Encounter Details Date Type Department Care Team (Late st Contact Info) Description 10/06/[address] [facility] - [address] [address] Betzaida Hernandez RN Social History Tobacco Use [...] on filedocumented in this encounter Care Teams Machine I Engraver Relationship Specialty Start Date End Date Unknown, Provider, PCP - General 11/06/16 documented as of this encounter
[2024-01-21 15:11] LABS: Alpha-1-Antitrypsin 89 mg/dL (100 - 190); Alpha-1-Antitrypsin Phenotype MZ bands
== END 2024-01-15 16:11 | disposition home or self-care (01) ==
LOC: LBO 16:12
PROVIDERS: PCP Family Medicine; Visit Provider Family Medicine
DX: E74.02 Pompe disease (principal)
CPT/HCPCS: 36415; 82103; 82104

== ENCOUNTER 2024-03-25 01:14 | Outpatient (CLI) | payer BC, SELFPAY ==
--- NOTE | 2024-03-25 09:00 | DI.MAMMO_ITS ---
Exam(s) MAMMO SCREENING EXAM: MAMMO SCREENING CLINICAL HISTORY: screening,Z12.39. TECHNIQUE: Bilateral full field digital CC and MLO mammographic images were obtained with 3D tomosyn thesis and utilizing computer aided detection (CAD). COMPARISON: Prior mammograms were reviewed. Prior ultrasound reviewed. FINDINGS: There are no new significant right breast findings. In the left breast on cc imaging there is an asymmetric density-possible nodule measuring 6 x 5 mm, l ocated 7 cm in from the nipple on the CC view. Further imaging recommended. There are no malignant- appearing microcalcification groups is region or elsewhere in either breast. No new architectural distortion or skin thickening-retraction. IMPRESSION: 1. No radiographic evidence of malignancy in the right breast. 2. Asymmetric density-possible left breast nodule as described above. Spot compression views and ismael ast ultrasound recommended. BI-RADS Category 0 - Incomplete: Need additional imaging evaluation Breast Density - Category B - Scattered areas of fibroglandular density Breast density Category C or D implies that the patient has dense breast tissue. Dense breast tissue can make it harder to find cancer on a mammogram. Dense breast tissue is also associated with an incr eased risk of breast cancer. This information about the result of the mammogram report was provided to the patient to raise their awareness. Use this report when you speak with the patient about their risks for breast cancer, which includes their family history. At that time, you may recommend additional screening tests (Ultrasoun d or MRI) as these tests may add significant information. A negative radiographic report should not delay biopsy if a dominant or clinically suspicious mass is present. Up to ten percent of cancers are not identified on mammography. A negative report may reinforce clinical impression. Adenosis and dense breasts may obscure an underlying neoplasm. False positive reports average 6 to 10%. Patient will receive a letter notifying them of these results.
== END 2024-03-25 01:34 ==
LOC: DI 01:14
PROVIDERS: PCP Family Medicine; Visit Provider Family Medicine
DX: Z12.31 Encounter for screening mammogram for malignant neoplasm of breast (principal); R92.323 Mammographic fibroglandular density, bilateral breasts
CPT/HCPCS: 77063; 77067

== ENCOUNTER 2024-04-01 01:07 | Outpatient (CLI) | payer BC, SELFPAY ==
--- NOTE | 2024-04-01 09:18 | DI.MAMMO_ITS ---
Exam(s) MAMMO SCREEN CALL BACK UNI EXAM: MAMMO SCREEN CALL BACK UNI CLINICAL HISTORY: R92.8 ABN mammo, Asymmetric density-possible LT Breast nodule. TECHNIQUE: Craniocaudal and mediolateral oblique Full Field Digital Mammography views of the left br east with Computer Aided Diagnosis. COMPARISON: Comparison is made with prior examinations. FINDINGS: Mammography/Tomosynthesis: Masses/Architectural Distortion: The asymmetric density does not persist on the current examination. No suspicious masses or areas of architectural distortion are seen. Microcalcifictions: No suspicious pleomorphic-type are seen. Skin Thickening/Nipple Retraction: None. IMPRESSION: 1. No evidence of malignancy is noted. 2. Unless there is more urgent need, follow-up screening mammography is recommended, as per [place] [employer] guidelines. 3. The findings were discussed with the patient on the date of the examination. BI-RADS Category 1 - Negative Breast Density - Category B - Scattered areas of fibroglandular density Breast density Category C or D implies that the patient has dense breast tissue. Dense breast tissue can make it harder to find cancer on a mammogram. Dense breast tissue is also associated with an incr eased risk of breast cancer. This information about the result of the mammogram report was provided to the patient to raise their awareness. Use this report when you speak with the patient about their risks for breast cancer, which includes their family history. At that time, you may recommend additional screening tests (Ultrasoun d or MRI) as these tests may add significant information. A negative radiographic report should not delay biopsy if a dominant or clinically suspicious mass is present. Up to ten percent of cancers are not identified on mammography. A negative report may reinforce clinical impression. Adenosis and dense breasts may obscure an underlying neoplasm. False positive reports average 6 to 10%. Patient will receive a letter notifying them of these results.
== END 2024-04-01 01:27 ==
LOC: DI 01:07
PROVIDERS: PCP Family Medicine; Visit Provider Family Medicine
DX: R92.8 Other abnormal and inconclusive findings on diagnostic imaging of breast (principal); Z12.31 Encounter for screening mammogram for malignant neoplasm of breast; R92.323 Mammographic fibroglandular density, bilateral breasts
CPT/HCPCS: 77063; 77067

== ENCOUNTER 2024-11-26 11:56 | Outpatient (CLI) | payer BC, SELFPAY ==
[2024-11-26 11:32] LABS: Abs Immature Grans 0.05 10^3/uL (0.0-0.06); HCT 39.4 % (36.0-46.0); HGB 12.6 g/dL (11.2-15.7); Immature Grans % 0.7 %; MCH 27.0 pg (27.0-33.0); MCHC 32.0 % (32.0-36.0); MCV 85 fL (80-95); MPV 9.7 fL (8.0-11.0); Platelet Count 289 10^3/uL (130-400); RBC 4.66 10^6/uL (3.93-5.22); RDW 13.4 % (11.7-14.6); RDW-SD 41.1 fL; WBC 6.75 10^3/uL (4.4-10.8)
[2024-11-26 11:47] LABS: ALT 23 U/L (14-59); AST 15 U/L (15-37); Albumin 3.7 g/dL (3.4-5.0); Alkaline Phosphatase 120 U/L (46-116); Anion Gap 6.8 mmol/L (3-11); BUN 12 mg/dL (7-18); Bilirubin, Total 0.6 mg/dL (0.2-1.0); CO2 29.2 mmol/L (21.0-32.0); Calcium 8.8 mg/dL (8.5-10.1); Chloride 104 mmol/L (98-107); Estimated GFR 101.44 (mL/min/1.73m2); Glucose 88 mg/dL (74-106); Potassium 4.1 mmol/L (3.5-5.1); Sodium 140 mmol/L (136-145); Total Protein 7.2 g/dL (6.4-8.2)
[2024-11-26 12:44] LABS: Vitamin D 25 Total 18 ng/mL (30-100)
== END 2024-11-26 11:57 | disposition home or self-care (01) ==
LOC: LBO 11:56
PROVIDERS: PCP Family Medicine; Visit Provider Podiatrist
DX: G40.909 Epilepsy, unspecified, not intractable, without status epilepticus (principal); Z01.818 Encounter for other preprocedural examination
CPT/HCPCS: 36415; 80053; 82306; 85025

== ENCOUNTER 2024-11-26 14:17 | Outpatient (CLI) | payer BC, SELFPAY ==
--- NOTE | 2024-11-26 09:45 | DI.MRI_ITS ---
Exam(s) MR LOWER EXTREMITY RT WO EXAM: MR LOWER EXTREMITY RT WO CLINICAL HISTORY: M19.071,M79.671,M25-571 Arthritis of right foot, Osteoarthritis RT ankle. TECHNIQUE: Multiplanar multisequence MRI was performed. COMPARISON: CR XR FOOT RT COMPLETE from 09/13/2023 FINDINGS: BONES/JOINTS: No evidence of fracture. No evidence of bone lesion. Degenerative changes are seen in the mid foot particularly at the 2nd, 3rd and 4th tarsometatarsal joints. Findings include joint space narrowing, subchondral cysts and subchondral edema. There may also be osteophytes particularly at the 3rd tarsometatarsal joint. There are also degenerative signal changes seen at the articulations between the navicular and the cuneiforms. The metatarsophalangeal joints and interphalangeal joints of the toes appear well maintained. LIGAMENTS: The medial and lateral collateral ligaments are intact. MUSCULOTENDINOUS STRUCTURES: Visualized portion of the planar fascia is unremarkable. The visualized intrinsic muscles and tendons of the foot are unremarkable.The visualized portion of the Achilles tendon is unremarkable. SOFT TISSUES: There is mild edema seen in the soft tissues on the dorsum of the foot overlying the tarsometatarsal joints. No focal fluid collection is seen. No soft tissue mass is appreciated. OTHER FINDINGS: None. IMPRESSION: 1. Degenerative changes are seen at the 2nd, 3rd and 4th tarsometatarsal joints and the articulations between the navicular and the cuneiforms. 2. Mild edema seen in the soft tissues on the dorsum of the foot overlying the tarsometatarsal joints without evidence of a focal fluid collection or soft tissue mass. DATA REPOSITORY:
== END 2024-11-26 14:37 ==
LOC: DI 14:18
PROVIDERS: PCP Family Medicine; Visit Provider Podiatrist
DX: M19.071 Primary osteoarthritis, right ankle and foot (principal)
CPT/HCPCS: 73718

== ENCOUNTER 2024-12-01 11:25 | Day surgery (SDC) | payer BC, SELFPAY ==
--- NOTE | 2024-12-01 11:45 | DI.RAD_ITS ---
Exam(s) XR FOOT RT LIMITED EXAM: XR FOOT RT LIMITED CLINICAL HISTORY: athritis right midfoot. TECHNIQUE: 2D and realtime digital imaging was performed. COMPARISON: CR XR FOOT RT COMPLETE from 09/13/2023 CR XR FOOT LT COMPLETE from 09/13/2023 FINDINGS: Hard copy images show a screw and plate fixation device placed from the bases of the 2nd and 3rd metatarsals through the 2nd and 3rd cuneiform. Please see procedure note for details. Fluoro time: 38seconds RADIATION DOSE DELIVERED: precious Manzanares=0.22 mGy
[2024-12-01 11:59] VITALS: BP 146/73; PULSE 56; RESP 16; TEMP 36.1; O2SAT 99
--- NOTE | 2024-12-01 12:09 | ANES.PREOP_ITS ---
General Info Date of Service Date Performed: 12/01/24 Height: 5 ft 5 in Weight: 119.3 kg Body Mass Index (BMI): 43.7 Surgical Procedure: Operation Date: 12/01/24 12:55 Proposed Procedure Side Surgeon p Arthrodesis, Midfoot possible Ever Wound Metatarsal Phalangeal Joint Right Georgette Murillo DPM Meds Allergies and Home Medications Allergies Allergy/AdvReac Type Severity Reaction Status Date / Time latex Allergy Severe Skin Rash, Verified 11/20/24 15:07 itchy tongue, respiratory distress promethazine HCl (From Allergy Severe chest Verified 11/20/24 15:07 Phenergan) tightness/SOB simethicone Allergy Severe Hives Verified 11/20/24 15:07 adhesive Allergy Intermediate Skin Rash Verified 11/20/24 15:07 hydrocodone Allergy Intermediate Hives Verified 11/20/24 15:07 meperidine Allergy Intermediate Hives Verified 11/20/24 15:07 oxycodone Allergy Intermediate Hives Verified 11/20/24 15:07 NSAIDS (Non-Steroidal AdvReac Intermediate d/t Verified 11/20/24 15:07 Anti-Inflamma vertical sleeve gastectomy Home Medication ?Medication ?Instructions ?Recorded acetaminophen 650 mg 1,300 mg PO BID PRN 09/13/23 tablet,extended release (Tylenol 8 Hour) ketoconazole 2 % topical cream 1 applic topical DAILY #120 grams 09/13/23 albuterol sulfate 90 mcg/actuation 2 puff inhalation Q 4H PRN PRN 09/26/23 aerosol inhaler bronchospasm #6.7 grams meloxicam 15 mg tablet 15 mg PO DAILY PRN joint danelle n #90 11/12/23 tabs cholecalciferol (vitamin D3) 125 625 mcg (5 x 125 mcg (5,000 unit)) 11/27/24 mcg (5,000 unit) capsule PO QWEEK #90 caps fhinsflslmbq-Hh-vqvy-minerals 1 tab PO DAILY 11/27/24 ibuprofen 400 mg tablet (IBU) 400 mg PO ONCE 12/01/24 Current Visit Medications: Current Medications Generic Name Dose Route Start Last Admin Trade Name Freq PRN Reason Stop Dose Admin Ringer's Solution 1,000 mls @ 30 mls/hr 12/01/24 06:00 IV 12/28/24 23:59 INFUSION BLAIR Cefazolin Sodium 3,000 mg/ 100 mls @ 200 mls/hr 12/01/24 06:00 Sodium Chloride IVPB 12/01/24 23:59 PREOP BLAIR IV Miscellaneous Supplies 1 each 12/01/24 06:00 Iv Access IV 12/28/24 23:59 DIRECTED BLAIR Sodium Chloride 0 ml 12/01/24 06:00 Normal Saline Flush 10 Ml Syr IV 12/28/24 23:59 PRN PRN Sodium Chloride 0 ml 12/01/24 06:00 Normal Saline 10 Ml Vial IJ 12/28/24 23:59 DIRECTED PRN Sterile Water 0 ml 12/01/24 06:00 Water,Injection,Sterile 10 Ml Vial IJ 12/28/24 23:59 DIRECTED PRN PFSH Active Problems Active Problems: Problem Status Onset Code Arthritis of right midfoot Acute M19.071 Alpha-1,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 Onychomycosis Acute B35.1 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 Family history of alpha 1 antitrypsin deficiency Acute Z83.49 Pes planus of right foot Acute M21.41 Pes planus of left foot Acute M21.42 Pain, joint, foot, right Acute M25.571 Pain in joint, foot, left Acute M25.572 Low vitamin D level Acute R79.89 Foot pain, right Acute M79.671 Visit 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 reports [place] post vertical sleeve gastric bypass Surgical History Surgical History History of colonoscopy (~11/19/20) H/O gastric bypass (~2014) severe n/v Vertical sleeve gastrectomy Hx laparoscopic cholecystectomy H/O tubal ligation (~1996) Hip dysplasia (~1969) with surgical intervention History of unilateral fallopian tube excision (~1992) due to ectopic Ectopic , tubal (~1991) with surgical repair of tube History of (~1991) History of ankle fusion (~2016) History of (~1991) Tobacco Smoking/Tobacco Use Status: Never Passive smoking exposure: Yes Alcohol Alcohol Intake: current Alcohol intake frequency: holidays/special occasions only Alcohol type: wine and hard liquor Substance Use Substance use: Never Substance use type: does not use Details: alcohol: couple months Vital Signs and Lab Results Vital Signs Most Recent Vital Signs in EMR: Most Recent Vital Signs Temp Pulse Resp BP Pulse Ox 36.1 C L 56 L 16 146/73 H 99 12/01/24 11:59 12/01/24 11:59 12/01/24 11:59 12/01/24 11:59 12/01/24 11:59 Lab Results Complete Blood Count: WBC, (4.4-10.8) 6.75 10^3/uL 11/26/24, 10:55 RBC, (3.93-5.22) 4.66 10^6/uL 11/26/24, 10:55 Hgb, (11.2-15.7) 12.6 g/dL 11/26/24, 10:55 Hct, (36.0-46.0) 39.4 % 11/26/24, 10:55 Plt Count, (130-400) 289 10^3/uL 11/26/24, 10:55 Complete Metabolic Panel: Sodium, (136-145) 140 mmol/L 11/26/24, 10:55 Potassium, (3.5-5.1) 4.1 mmol/L 11/26/24, 10:55 Chloride, (98-107) 104 mmol/L 11/26/24, 10:55 Carbon Dioxide, (21.0-32.0) 29.2 mmol/L 11/26/24, 10 :55 BUN, (7-18) 12 mg/dL 11/26/24, 10:55 Creatinine, (0.55-1.02) 0.7 mg/dL 11/26/24, 10:55 Est GFR (CKD-EPI 2020), (mL/min/1.73m2) 101.44 11/26/24, 10:55 Calcium, (8.5-10.1) 8.8 mg/dL 11/26/24, 10:55 Albumin, (3.4-5.0) 3.7 g/dL 11/26/24, 10:55 Glucose, (74-106) 88 mg/dL 11/26/24, 10:55 Liver Function Panel: ALT, (14-59) 23 U/L 11/26/24, 10:55 AST, (15-37) 15 U/L 11/26/24, 10:55 Anesthesia Assessment and Plan Anesthesia History Personal History: No History of Anesthesia Complications and PONV Family History: Family History Unknown Exercise Tolerance Exercise Tolerance: Metabolic Equivalents<4 Pertinent Negatives Pertinent Negatives: No Symptoms of GERD, No Major Cardiovascular Symptoms or Complaints, No Major Pulmonary Symptoms or Complaints and No History of CVA/TIA Cardiac & Pulmonary Exam Cardiac Exam: Normal S1/S2 Heart Sounds Pulmonary Exam: Clear Bilateral Breath Sounds Implantable Cardiac Device Does patient have a Pacemaker or an ICD?: No Airway Exam Known Difficult Airway: No Mallampati Class: 1 Mouth Opening: Normal (> 3cm) Thyromental Distance: Greater than 3 cm Neck Range of Motion: Full ROM Neck Circumference: Thick Teeth Condition: Generalized Poor Dentition and Other (Minimal lower teeth, edentulous upper, none loose per pt. ) ASA Classification ASA Score: ASA 3 Emergency Case?: No NPO Status NPO Status: NPO Clears >2 hours, Solids >8 hours Anesthesia Plan Resuscitation Status: Full Code Anesthesia Technique: General Anesthesia Airway Planned: Natural Airway Monitors Used: Standard Monitors
[2024-12-01] MEDS: Lactated Ringers 1,000 ML 30 ML IV (12:10)
[2024-12-01 12:13] VITALS: BMI 43.7
[2024-12-01] MEDS: ceFAZolin 3,000 MG in Normal Saline 100 ML 200 MG IVPB (13:15)
[2024-12-01] MEDS: Lidocaine 1% Pres-Free 30 ML VIAL (13:44)
[2024-12-01] MEDS: Bupivacaine 0.25% Pres-Free 30 ML VIAL (16:12)
[2024-12-01] MEDS: Bupivacaine LIPOSOME/PF 133 MG/10 ML VIAL IJ (16:12)
[2024-12-01 16:22] VITALS: BP 149/88; PULSE 58; RESP 16; TEMP 36.2; O2SAT 95
--- NOTE | 2024-12-01 16:30 | W.PM.DSUDISC ---
Date of service: 12/01/24 Discharge Plan Disposition Patient Disposition: Home Condition: Stable Discharge Details Attending Provider: Georgette Murillo Primary Care Provider: Ramiro Melo Home Meds and New Rx's Prescriptions: No Action acetaminophen [Tylenol 8 Hour] 650 mg tablet extended release 1,300 mg PO BID PRN Rx Instructions: on work days ketoconazole 2 % cream 1 applic topical DAILY Qty: 120 6RF Rx Instructions: Apply to toenails once daily celecoxib [Celebrex] 200 mg capsule 200 mg PO Q12H 3 Days Qty: 6 0RF hydromorphone 2 mg tablet 2 mg PO Q6H MDD 4 tabs 3 Days Qty: 12 0RF albuterol sulfate 90 mcg/actuation HFA aerosol inhaler 2 puff INHALATION Q4H PRN PRN (Reason: bronchospasm) Qty: 6.7 2RF meloxicam 15 mg tablet 15 mg PO DAILY PRN (Reason: joint pain) Qty: 90 1RF cholecalciferol (vitamin D3) 125 mcg (5,000 unit) capsule 625 mcg PO QWEEK Qty: 90 0RF gxcdzvitlhji-Jf-wffm-minerals Tablet 1 tab PO DAILY Patient Comments: going to start after surgery ibuprofen [IBU] 400 mg tablet 400 mg PO ONCE Discharge Instructions Additional Instructions: Patient to keep the dressings clean, dry and intact. Do not remove the dressings. Please keep the surgical shoe on at all times including at bed. Please use crutches which you already have apply ice around the incision, behind the ankle and behind the knee 10 minutes on 20 minutes off around the clock. Pain medication was sent to the pharmacy. Rest, ice and elevate. Do not put any weight on the right foot. Follow-up in office on . Stand Alone Forms: Anesthesia Discharge Inst., Podiatry Instructions-[facility], Sunshine Flores ([facility]) Referrals: Georgette Murillo DPM [[facility] STAFF PHYSICIAN, Podiatry] - 12/04/24 1:15 am Equipment/Supplies: Non-Weight Bearing Crutches Activity:: Elevate Remove Dressings/Wound Care:: Do Not Remove Shower/Bathe:: Cover Diet:: Normal Diet Discharge Orders Discharge Orders: Discharge Order (Routine); Ordered 12/01/24 Ordered By: Georgette Murillo DS: Diagnosis Discharge Diagnosis (1) Arthritis of right midfoot: Status: Acute (2) Post-op pain: Status: Acute
--- NOTE | 2024-12-01 16:32 | W.PM.OP ---
Operative Note Operative Note PRE-OP DIAGNOSIS: Midfoot arthritis, right foot POST-OP DIAGNOSIS: same PROCEDURE: Arthrodesis, right 2nd and 3rd tarsometatarsal joints SURGEON: Georgette Murillo ANESTHESIA TYPE: Local By Surgeon (15 mL 1% lidocaine preoperatively. 20 mL one-to-one solution of 0.5% Marcaine plain with Exparel) Refer to Anesthesia Record ESTIMATED BLOOD LOSS: 50 TOURNIQUET TIME: 119 COMPLICATIONS: None Patient was transported to: same day Patient's condition: stable Implants: Second TMT plate right, Synthes 24, 28 mm 3.0 locking screws proximally Synthes 18, 24 mm 3.0 cortical screws distal Synthes 18, 20 mm 3,0 locking screws distally Synthes Indications: D4-year-old female patient with chronic pain to the right midfoot. Her pain is localized to the right 2nd, 3rd and 4th tarsometatarsal joints. She has exhausted shoe gear changes as well as cortisone injections. She has tried inserts in the past as well however, pain persists. Reports persistent pain which is not amenable to conservative care. Surgical intervention was discussed with the patient. I recommend arthrodesis of the 2nd and 3rd tarsometatarsal joints since these are some are the most painful. She was advised that I would like to hold off on fusion of the fourth tarsometatarsal joint as they may lead to excessive stiffness. If this area does continue to bother her we can discuss further intervention in the future. Patient is amenable to this. X-rays were reviewed. MRI was reviewed as well noted to be with arthritic changes most pronounced to the 2nd and 3rd without any evidence for significant arthritis to the first metatarsal cuneiform joint and therefore this joint was spared. I discussed the risks, benefits and possible complications of the procedure in detail with the patient including but not limited to pain, nerve pain, CRPS, delayed healing, nonhealing, infection, wound dehiscence, hematoma, seroma, infection to bone, hardware failure, malunion, nonunion, delayed union, pain, nerve pain, difficulty with ambulation, Findings: Cartilage loss and osteophytes to the 2nd and 3rd tarsometatarsal joints. Procedure Description: Patient identified in preop holding. Site was marked. Consent form signed reviewed in chart. Discussed the risks, benefits and possible complications of the procedure in detail again with the patient. She was then brought to the operating room placed on the operating table in supine position with the anesthesia team. After induction of anesthesia, a thigh tourniquet was applied to the right lower extremity. A regional block was performed theresa-incisionally just proximal to the tarsometatarsal joints using 15 mL of 1% lidocaine plain preoperatively. The right lower extremity was then scrubbed, prepped and draped in the usual aseptic manner. Fluoroscopy was used to identify the joint/plan incision placement. The incision was planned using sterile markers just in between the 2nd and 3rd metatarsal bases and extended distally and proximally, about 5 to 7 cm incision was made. A sterile #15 blade was used to make a skin incision which was deepened through the subcutaneous tissue, the EDB muscle belly was encountered, it was then mobilized using sharp and dull dissection for exposure to the operative site. Incision was then deepened through the periosteum thus exposing the 2nd and 3rd tarsometatarsal joints. After adequate exposure was made, the osteophytes were removed using a rongeur. A joint distractor was then used to distract the 2nd and 3rd tarsometatarsal joints, a cartilage remover was used to denude the cartilage from the base of the second metatarsal as well as middle cuneiform however, this was noted to be fairly dull, therefore decision was made to resect the joint using a bone saw. Either end of the joint from the 2nd and 3rd tarsometatarsal joints were then resected and passed from the operative field. The joint spaces were then fenestrated for fusion. The joints were then reapproximated using the Hinterman retractor. Good joint apposition was noted and confirmed. Next a Synthes plate was provisionally fixed to the joints using an olive wire which was applied to the middle cuneiform and the proximalmost screw hole for the plate. Plate placement was then confirmed using intraoperative fluoroscopy and 3 oh locking screws were applied to the middle and lateral cuneiform via the plate. These were then locked. Next, cortical screws were applied eccentrically to the distalmost screw holes and no Synthes plate and these were tightened for further compression which was then checked with intraoperative fluoroscopy. Next the 3.0 locking screws were then used to secure the plate and fixation. This was confirmed via intraoperative fluoroscopy again. The periosteum was then reapproximated using 3-0 Vicryl as well as 2-0 Vicryl. Subcutaneous tissue was reapproximated using 4-0 Vicryl, skin was reapproximated using 4-0 nylon. The tourniquet was deflated at 90 minutes for 20 minutes and then reinflated for a total of 119-minute tourniquet time throughout the procedure. A postoperative injection consisting of one-to-one solution of 0.5% Marcaine plain as well as Exparel, 20 cc was injected theresa-incisional. Dressings were then applied with Xeroform gauze, 4 x 4, Kerlix and an Randy wrap. Patient tolerated the procedure and anesthesia well with vital signs stable and vascular status intact to the right lower extremity. Patient was transferred to same-day for further monitoring. She was discharged home once stable. Patient was sent in pain medications. She has an appointment to follow-up on Date of Procedure: 12/01/24
--- NOTE | 2024-12-01 16:52 | DI.RAD_ITS ---
Exam(s) XR FOOT RT COMPLETE EXAM: XR FOOT RT COMPLETE CLINICAL HISTORY: post op. TECHNIQUE: 2D digital imaging was performed. Three views. COMPARISON: CR XR FOOT RT LIMITED from 12/01/2024 FINDINGS: BONES: No acute fracture is present. No bony destructive lesion is seen. A fixation plate has been placed across the 2nd and 3rd MTP joints. Heel spurs are again noted. JOINTS: No dislocation present. SOFT TISSUE: Postsurgical soft tissue swelling over the dorsum of the foot. IMPRESSION: Postsurgical changes. DATA REPOSITORY: RADIATION DOSE DELIVERED:
[2024-12-01 16:59] VITALS: BP 164/74; PULSE 53; RESP 16; TEMP 36.4; O2SAT 97
[2024-12-01] MEDS: HYDROmorphone 2 MG TAB PO (16:59)
--- NOTE | 2024-12-01 17:14 | W.ANESPOSTOP ---
Postoperative Evaluation Date, Time and Location Date Performed: 12/01/24 Time Performed: 16:59 Patient Location: Day Surgery Unit Vital Signs Most Recent Imported Vital Signs: Most Recent Vital Signs Temp Pulse Resp BP Pulse Ox 36.2 C L 58 L 16 149/88 H 95 12/01/24 16:22 12/01/24 16:22 12/01/24 16:22 12/01/24 16:22 12/01/24 16:22 Pain Score Most Recent Pain Score: Most Recent Pain Score Pain Level 9 12/01/24 16:22 Assessment Mental Status: Awake (Alert & Oriented to Patient Baseline) Airway and Respiratory Function: Patent airway with normal (patient baseline) respiratory exam Cardiovascular Function: Hemodynamically Stable Hydration Status: Adequately Hydrated Nausea & Vomiting: No Nausea or Vomiting Pain: Pain is Moderate or Severe Postoperative Pain Management: Pain being addressed with medication Peripheral Nerve Block: Patient did not receive a nerve block
[2024-12-01 17:39] VITALS: BP 160/75; PULSE 60; RESP 16; TEMP 36.3; O2SAT 94
== END 2024-12-01 18:19 | disposition home or self-care (01) ==
PROVIDERS: PCP Family Medicine; Visit Provider Podiatrist
PROC: (CPT 28735; principal; 2024-12-01 12:45)
DX: M19.071 Primary osteoarthritis, right ankle and foot (principal); G89.18 Other acute postprocedural pain; M25.571 Pain in right ankle and joints of right foot; E74.02 Pompe disease; B35.1 Tinea unguium; J45.909 Unspecified asthma, uncomplicated; E55.9 Vitamin D deficiency, unspecified; K58.9 Irritable bowel syndrome, unspecified; H90.3 Sensorineural hearing loss, bilateral; Z98.84 Bariatric surgery status
CPT/HCPCS: 28735; 00123; 76000; 73620; 73630; J0665; J0666; J0690; J1100; J2003; J2004; J2405; J2704

== ENCOUNTER 2024-12-15 07:22 | Outpatient (CLI) | payer BC, SELFPAY ==
--- NOTE | 2024-12-15 14:40 | DI.RAD_ITS ---
Exam(s) XR FOOT RT COMPLETE EXAM: XR FOOT RT COMPLETE CLINICAL HISTORY: ? any failure, arthritis rt mid foot, post op pain,m19.071,g89.18. TECHNIQUE: 2D digital imaging was performed. Three images were obtained. AP, lateral and oblique views were obtained. COMPARISON: CR XR FOOT RT LIMITED from 12/01/2024 CR XR FOOT RT COMPLETE from 12/01/2024 FINDINGS: BONES: There are stable post operative changes present. No new fracture or dislocation. There is an enthesophyte at the posterior calcaneus. There is plantar calcaneal spur. JOINTS: The joint spaces are well maintained. There is again seen a screw in plate fixation device traversing the 2nd and 3rd tarsometatarsal joints. Orthopedic hardware appears stable. SOFT TISSUE: Normal. IMPRESSION: Stable postoperative changes. DATA REPOSITORY: RADIATION DOSE DELIVERED:
== END 2024-12-15 07:42 ==
LOC: DI 07:22
PROVIDERS: PCP Family Medicine; Visit Provider Podiatrist
DX: M19.071 Primary osteoarthritis, right ankle and foot (principal); G89.18 Other acute postprocedural pain
CPT/HCPCS: 73630

== ENCOUNTER 2024-12-29 02:23 | Outpatient (CLI) | payer BC, SELFPAY ==
--- NOTE | 2024-12-29 06:30 | DI.RAD_ITS ---
Exam(s) XR FOOT RT COMPLETE EXAM: XR FOOT RT COMPLETE CLINICAL HISTORY: ? ANY DISPLACEMENT,POST OP PAIN,ARTHRITIS MIDFOOT,M19.071. TECHNIQUE: 2D digital imaging was performed. Three images were obtained. AP, lateral and oblique views were obtained. COMPARISON: CR XR FOOT RT COMPLETE from 12/15/2024 FINDINGS: BONES: There are stable post operative changes present. The orthopedic hardware is stable in position. The tarsometatarsal joints are stable in alignment. No new fracture or dislocation. There is a plantar calcaneal spur. There is an enthesophyte at the posterior calcaneus. JOINTS: Degenerative changes are seen in the tarsal bones. SOFT TISSUE: There is soft tissue swelling of the foot. No soft tissue gas is seen. IMPRESSION: Stable alignment of the orthopedic hardware and the 2nd and 3rd tarsometatarsal joints. DATA REPOSITORY: RADIATION DOSE DELIVERED:
== END 2024-12-29 02:43 ==
LOC: DI 02:23
PROVIDERS: PCP Family Medicine; Visit Provider Podiatrist
DX: G89.18 Other acute postprocedural pain (principal); M19.071 Primary osteoarthritis, right ankle and foot
CPT/HCPCS: 73630

== ENCOUNTER 2025-01-21 01:29 | Outpatient (CLI) | payer BC, SELFPAY ==
--- NOTE | 2025-01-21 08:45 | DI.RAD_ITS ---
Exam(s) XR FOOT RT COMPLETE EXAM: XR FOOT RT COMPLETE CLINICAL HISTORY: Healing? G89.18 POSTPROCEEDURAL PAIN. TECHNIQUE: 2D digital imaging was performed of the right foot. Three images were obtained. AP, oblique and lateral views were obtained. COMPARISON: CR XR FOOT RT COMPLETE from 12/15/2024 CR XR FOOT RT COMPLETE from 12/29/2024 FINDINGS: BONES: No acute fracture is present. No bony destructive lesion is seen. Calcaneal spurs are again seen. The bones appear osteopenic which likely secondary to decreased use. JOINTS: No dislocation present. There are stable postsurgical changes at the 2nd and 3rd tarsometatarsal joints. The orthopedic hardware appears unremarkable. The joint spaces are otherwise well maintained. SOFT TISSUE: There is diffuse soft tissue swelling of the foot. No soft tissue gas is identified. IMPRESSION: 1. Stable postsurgical changes at the tarsometatarsal joints. 2. Soft tissue swelling of the right foot. DATA REPOSITORY: RADIATION DOSE DELIVERED:
== END 2025-01-21 01:49 ==
LOC: DI 01:29
PROVIDERS: PCP Family Medicine; Visit Provider Podiatrist
DX: G89.18 Other acute postprocedural pain (principal)
CPT/HCPCS: 73630

== ENCOUNTER → 2025-02-11 02:15 | Outpatient (CLI) | payer BC, SELFPAY ==
--- NOTE | 2025-02-11 07:45 | DI.RAD_ITS ---
Exam(s) XR FOOT RT COMPLETE EXAM: XR FOOT RT COMPLETE CLINICAL HISTORY: Fused?, POST OP PAIN, ARTHRITIS RT MID FOOT, G89.18, M19.017. TECHNIQUE: 2D digital imaging was performed. Three views. COMPARISON: CR XR FOOT RT COMPLETE from 09/13/2023 CR XR FOOT LT COMPLETE from 09/13/2023 CR XR FOOT RT LIMITED from 12/01/2024 CR XR FOOT RT COMPLETE from 12/01/2024 CR XR FOOT RT COMPLETE from 01/21/2025 FINDINGS: BONES: No acute fracture is present. No bony destructive lesion is seen. Heel spurs are again noted. JOINTS: No dislocation present. There is stable alignment of the fixation plate noted across the dorsal aspect of the 2nd and 3rd tarsal metatarsal joints. SOFT TISSUE: Normal. IMPRESSION: Stable hardware alignment. DATA REPOSITORY: RADIATION DOSE DELIVERED:
== END ==
LOC: DI 02:15
PROVIDERS: PCP Family Medicine; Visit Provider Podiatrist
DX: G89.18 Other acute postprocedural pain (principal); M19.071 Primary osteoarthritis, right ankle and foot
CPT/HCPCS: 73630

== ENCOUNTER → 2025-03-11 00:19 | Outpatient (CLI) | payer BC, SELFPAY ==
--- NOTE | 2025-03-11 07:45 | DI.RAD_ITS ---
Exam(s) XR FOOT RT COMPLETE EXAM: XR FOOT RT COMPLETE CLINICAL HISTORY: Fused?, arthritis rt mid foot, M19.071 primary osteoarthritis. TECHNIQUE: 2D digital imaging was performed. Three views. COMPARISON: CR XR FOOT RT COMPLETE from 02/11/2025 FINDINGS: BONES: A dorsal fixation plate is again noted spanning the 2nd and 3rd tarsal metatarsal joints. There appears to be bony bridging. No acute fracture is present. No bony destructive lesion is seen. Heel spurs are again noted. JOINTS: No dislocation present. Intertarsal degenerative changes. SOFT TISSUE: Normal. IMPRESSION: There appears to be bony fusion a at the surgical site through the 2nd and 3rd tarsal metatarsal joints. DATA REPOSITORY: RADIATION DOSE DELIVERED:
== END ==
LOC: DI 00:20
PROVIDERS: PCP Family Medicine; Visit Provider Podiatrist
DX: M19.071 Primary osteoarthritis, right ankle and foot (principal)
CPT/HCPCS: 73630